=== PATIENT | male | born 1960 | race Caucasian/White ===

== ENCOUNTER 2022-08-19 08:19 | Emergency (ER) | payer MEDICARE, SELFPAY ==
[2022-08-19] VITALS (12 sets, daily range): BP systolic 117–165; BP diastolic 57–95; PULSE 57–93; RESP 16–28; TEMP 36.4; O2SAT 98–100
[2022-08-19] MEDS: KETOROLAC 30 MG/ML VIAL (*BKC) IV PUSH (09:08)
[2022-08-19 09:10] LABS: Basophils Percent Auto 0.1 % (0.2-1.2); Eosinophils Percent Auto 0.2 % (0-4.4); Hematocrit 40.6 % (42.0-52.0); Hemoglobin 13.7 g/dL (14.0-18.0); Immature Granulocyte Absolute 0.08 K/mm3 (0.00-0.031); Immature Granulocyte Percent A 0.6 % (0-0.5); Lymphocytes Percent Auto 12.7 % (18.3-44.2); Mean Corpuscular HGB Conc 33.7 g/dl (32-36); Mean Platelet Volume 9.2 fl (7.4-10.4); Monocytes Absolute Auto 1.1 K/mm3 (0.1-0.6); Monocytes Percent Auto 8.3 % (2.6-8.5); Neutrophils Absolute Auto 10.5 K/mm3 (1.3-6.7); Neutrophils Percent Auto 78.1 % (45.5-73.1); Platelet Count Result 278 k/mm3 (150-375); Red Blood Count 4.56 M/mm3 (4.6-6.20); Red Cell Distribution Width 12.9 % (11.5-14.5); White Blood Count 13.4 K/mm3 (4.5-10.0)
[2022-08-19 09:24] LABS: Lactic Acid Reflex 2.7 mmol/L (0.7-2.0)
[2022-08-19 09:25] LABS: Alanine Aminotransferase 29 U/L (6-50); Albumin Level 4.3 g/dL (3.5-5.1); Alkaline Phosphatase 95 U/L (38-126); Anion Gap 12 mmol/L (8-16); Aspartate Amino Transferase 22 U/L (17-59); Bilirubin,Total 0.3 mg/dL (0.2-1.3); Blood Urea Nitrogen 17 mg/dL (9-20); Carbon Dioxide 23 mmol/L (22-30); Chloride 104 mmol/L (98-107); Estimated CRCL calculation 80 ml/min; Estimated Glomerular Filt Rate > 60; Glucose 129 mg/dL (65-110); Potassium 3.6 mmol/L (3.4-5.0); Sodium 139 mmol/L (137-145)
--- NOTE | 2022-08-19 09:25 | ED.GENADULT ---
HPI - General Adult General Chief complaint: Unspecified Stated complaint: Body Aches Time Seen by Provider: 08/19/22 08:49 History of Present Illness HPI narrative: 61-year-old man history of chronic pain to his right hip and lower back presents to the emergency room for evaluation of generalized body aches for 1 day. Patient states approximately a week ago he was experiencing multiple episodes of nausea, vomiting, diarrhea, and sinus congestion. States that the symptoms lasted for 2 or 3 days. States yesterday began experiencing generalized body aches from the mid thorax down into his feet. Patient states that his skin is very sensitive to touch. Has been intermittently taking Tylenol and ibuprofen with no symptom resolution. Currently denies fever, URI symptoms, or abdominal pain Related Data Allergies Allergy/AdvReac Type Severity Reaction Status Date / Time No Known Allergies Allergy Verified 08/19/22 08:56 NONE KNOWN Allergy Mild Unknown Uncoded 08/19/22 08:56 Review of Systems Review of Systems: CONSTITUTIONAL: Denies fever, chills, or sweats. EYES: Denies visual changes, redness, or discharge. ENT: Denies rhinorrhea, congestion, sore throat, or otalgia. CARDIOVASCULAR: Denies chest pain, palpitations, or edema. RESPIRATORY: Denies cough or dyspnea. GASTROINTESTINAL: Denies abdominal pain, nausea, vomiting, or diarrhea. GENITOURINARY: Denies dysuria or hematuria. SKIN: Denies rash or itching. MUSCULOSKELETAL: Reports body aches NEUROLOGIC: Denies headache, numbness, dizziness, or weakness. PSYCHIATRIC: Denies anxiety or depression. [facility] Family History Family History Grandparent Hypertension Family history of elevated blood lipids Family history of coronary artery disease Diabetes mellitus Social History Social History Second hand tobacco smoke exposure: Yes Alcohol intake: current Substance use type: marijuana Exam Narrative: GENERAL: Well-appearing, well-nourished, no physical limitations, and in no acute distress. HEAD: Normocephalic, atraumatic. EYES: Conjunctivae normal, PERRLA and EOMI. ENT: External nose normal, Nares clear, no rhinorrhea or epistaxis. Mucous membranes moist. Oropharynx without tonsillar hypertrophy exudate or other lesions. External ears normal, bilateral TMs normal bilaterally CHEST: Clear to auscultation. No respiratory distress. No wheezes rales or rhonchi. No tenderness. HEART: Regular rate and rhythm. No murmur heard. Normal peripheral pulses. ABDOMEN: Soft, nontender, nondistended, normal active bowel sounds. EXTREMITIES: Normal range of motion. No edema. No clubbing or cyanosis SKIN: Warm, dry, no rash. No noted wounds. Hyperalgesia noted to torso, back, abdomen, lower extremities NEURO: No focal deficits. Alert and oriented x3. MAEW. CN's II-XI intact bilaterally, normal gait PSYCH: Cooperative. Normal mood and affect. Course Vital Signs Vital signs: Vital Signs Pulse Rate 70 08/19/22 08:36 Respiratory Rate 28 H 08/19/22 08:36 Blood Pressure 137/82 08/19/22 08:36 Pulse Oximetry 99 08/19/22 08:36 Temperature 36.4 C 08/19/22 08:52 Pulse Rate 62 08/19/22 12:17 Respiratory Rate 20 08/19/22 12:17 Blood Pressure 138/95 H 08/19/22 12:17 Pulse Oximetry 100 08/19/22 12:17 Oxygen Delivery Room Air 08/19/22 08:52 Medical Decision Making Vital Signs Vital Signs: Vital Signs Pulse Rate 70 08/19/22 08:36 Respiratory Rate 28 H 08/19/22 08:36 Blood Pressure 137/82 08/19/22 08:36 Pulse Oximetry 99 08/19/22 08:36 Temperature 36.4 C 08/19/22 08:52 Pulse Rate 62 08/19/22 12:17 Respiratory Rate 20 08/19/22 12:17 Blood Pressure 138/95 H 08/19/22 12:17 Pulse Oximetry 100 08/19/22 12:17 Oxygen Delivery Room Air 08/19/22 08:52 Lab Data Result diagrams: 08/19/22 09:04
[2022-08-19 09:47] LABS: Influenza A QL RT-PCR Negative (Negative); Influenza B QL RT-PCR Negative (Negative); SARS-CoV-2 RNA PCR Positive
[2022-08-19] MEDS: SODIUM CHLORIDE 0.9% IV 1,000 ML 999 ML IV CONT ×2 (10:42→10:43)
[2022-08-19 12:07] LABS: Reflex Lactic Acid Yes or No Add Lactic
[2022-08-19 12:49] LABS: Appearance Urine Clear (Clear); Bilirubin Urine Negative (Negative); Blood Urine Negative (Negative); Color Urine Yellow (Yellow); Glucose Urine UA Negative (Negative); Ketones Urine 1+ mg/dL (Negative); Leukocyte Esterase Ur Negative LEU/UL (Negative); Nitrate Urine Negative (Negative); Protein Urine Trace mg/dL (Negative); Specific Grav Ur 1.025 (1.001-1.035); Urobilinogen Urine 0.2 mg/dL (<2.0); pH Urine 5.5 (5.0-9.0)
[2022-08-19 12:52] LABS: Mucus Urine Rare /lpf; RBC Urine 0-2 /hpf (0-2); WBC Urine 0-3 /hpf
[2022-08-19 12:53] LABS: Lactic Acid 0.9 mmol/L (0.7-2.0)
[2022-08-19 12:54] LABS: Lactic Acid Reflex 0.9 mmol/L (0.7-2.0)
[2022-08-19 13:10] LABS: Add Urine Microscopic? YES
== END 2022-08-19 13:29 | disposition home or self-care (01) ==
PROVIDERS: Emergency Provider Nurse Practitioner Family
DX: U07.1 COVID-19 (principal); Z77.22 Contact with and (suspected) exposure to environmental tobacco smoke (acute) (chronic)
CPT/HCPCS: 36415; 80053; 81001; 83605; 85025; 87502; 92960; 96374; 99284; C9803; J1885; J7030; U0003; U0005

== ENCOUNTER 2022-08-21 13:35 | Inpatient (IN) | payer MEDICARE, SELFPAY ==
[2022-08-21] VITALS (9 sets, daily range): BP systolic 120–157; BP diastolic 81–97; PULSE 56–86; RESP 12–17; TEMP 36.3–36.7; O2SAT 96–100; BMI 24.2
--- NOTE | ~2022-08-21 | MR_ITS ---
EXAMINATION: MR thoracic spine wo/w con DATE: 08/22/2022 11:36 INDICATION: Lower extremity weakness. Demyelinating disease. TECHNIQUE: Magnetic resonance imaging (MRI) of the thoracic spine was performed without and with 15 m L MultiHance intravenous contrast. COMPARISON: Thoracic spine CT 08/21/2022 FINDINGS: There is 5 degrees levocurvature of thoracic spine. Vertebral body heights are normal. Ther e is mildly decreased disc height at T6-T7 and T7-T8. At T3-T4, there is a right central protrusion w ith mild central canal stenosis. At T6-T7, there is a left central protrusion with mild central canal stenosis. The facet joints are unremarkable. On the right, there is mild neural foraminal stenosis a t T3-T4. There is patchy increased T2-weighted signal intensity in the spinal cord from T1 to T9. No contrast enhancement, but sensitivity for enhancement is decreased by motion artifact. IMPRESSION: 1. Patchy increased T2-weighted signal intensity in the spinal cord from T1 to T9. The differential d iagnosis includes viral myelitis, transverse myelitis, multiple sclerosis, acute disseminated encepha lomyelitis, and neuromyelitis optica. 2. Mild thoracic spondylosis. Reviewed, dictated and finalized at location A. IMPRESSION: 1. Patchy increased T2-weighted signal intensity in the spinal cord from T1 to T9. The differential diagnosis includes viral myelitis, transverse myelitis, mu ltiple sclerosis, acute disseminated encephalomyelitis, and neuromyelitis optic a. 2. Mild thoracic spondylosis.
--- NOTE | ~2022-08-21 | MR_ITS ---
EXAMINATION: MR lumbar spine wo/w con DATE: 08/22/2022 11:37 INDICATION: Lower extremity weakness. Guillain [place] syndrome. TECHNIQUE: Magnetic resonance imaging (MRI) of the lumbar spine was performed without and with 15 mL MultiHance intravenous contrast. COMPARISON: CT 08/21/2022 FINDINGS: Bone alignment is normal. Vertebral body heights are normal. There is moderately decreased disc height at L2-L3, severely decreased disc height at L3-L4 and L4-L5, and mildly decreased disc he ight at L5-S1. The distal spinal cord signal intensity is normal. The conus medullaris is at L1. The following disc levels are specifically discussed: L1-L2: The disc does not extend beyond the endplate margin. There is no facet joint osteoarthritis. T here is no neural foraminal stenosis. There is no central canal stenosis. L2-L3: The disc is bulging. There is mild bilateral facet joint osteoarthritis. There is mild bilater al neural foraminal stenosis. There is no central canal stenosis. L3-L4: The disc is bulging and has an annular fissure. There is mild lateral facet joint osteoarthrit is. There is mild bilateral neural foraminal stenosis. There is mild central canal stenosis. L4-L5: The disc is bulging and has an annular fissure. There is moderate right and mild left facet valentino int osteoarthritis. There is moderate right and mild left neural foraminal stenosis. There is no cent ral canal stenosis. L5-S1: The disc is bulging and has an annular fissure. There is moderate bilateral facet joint osteoa rthritis. There is mild bilateral neural foraminal stenosis. There is mild central canal stenosis. IMPRESSION: 1. Severe lumbar spondylosis. Reviewed, dictated and finalized at location A.
--- NOTE | ~2022-08-21 | XR_ITS ---
EXAMINATION: XR lumbar puncture diagnostic DATE: 08/21/2022 19:09 INDICATION: Guillan Henderson TECHNIQUE: The procedure including the risks and benefits was discussed with the patient. Risks discu ssed included spinal headache, cerebrospinal fluid leak, bleeding, and infection. The patient underst ood the risks and agreed to proceed. A timeout was performed to verify the patient's name, date of , and procedure to be performed. The skin overlying the L4-L5 level was prepped and draped in usual sterile fashion. Subcutaneous 1% lidocaine was used for local anesthesia. A 22 gauge spinal n eedle was advanced under fluoroscopic guidance. The needle was removed and the entry site was cleaned and dressed. There were no immediate complications. A total of 1 fluoroscopic image(s) were obtaine d. The amount of fluoroscopy time used during this procedure was 0.2 minutes. The patient was taken t o the nursing area for observation. FINDINGS: Real-time fluoroscopy demonstrates the needle at the L4-L5 level. Opening pressure was 13 c m water. (Normal range is variably defined as 6-20 cm water and up to 25 cm water in obese patients. Pressure >25 cm water is one of the modified Dandy criteria for idiopathic intracranial hypertension) . 13 mL of clear, colorless fluid was collected in 4 tubes. IMPRESSION: 1. Successful fluoro-guided lumbar puncture. Reviewed, dictated and finalized at location A.
--- NOTE | ~2022-08-21 | CT_ITS ---
EXAMINATION: CT thoracic lumbar wo con DATE: 08/21/2022 14:57 INDICATION: Lower extremity weakness and paresthesias TECHNIQUE: Computed tomography (CT) of the was performed without intravenous contrast. The dose-lengt h product was 1696.16 mGy-cm. Automated exposure control and iterative reconstruction technique were employed. COMPARISON: None FINDINGS: Thoracic spine: Normal thoracic alignment. Mild degenerative disc disease at C6-7 and C7-T1. There is dependent atelectasis in the lower lungs. No acute fracture or traumatic malalignment. Lumbar spine: There is moderate-severe degenerative disc disease at L2-3 through L5-S1. No acute frac ture or traumatic malalignment. No evidence for spondylolisthesis. IMPRESSION: 1. No acute fracture. Reviewed, dictated and finalized at location B. IMPRESSION: 1. No acute fracture.
--- NOTE | ~2022-08-21 | CT_ITS ---
EXAMINATION: CT cervical spine wo con DATE: 08/21/2022 14:56 INDICATION: Lower extremity weakness and paresthesias. Neck pain. TECHNIQUE: Computed tomography (CT) of the cervical spine was performed without intravenous contrast. Automated exposure control and iterative reconstruction technique were employed. The dose-length pro duct was 489.23 mGy-cm. COMPARISON: None FINDINGS: Straightening of the normal cervical lordosis. No spondylolisthesis or facet subluxation. Vertebral b shyam heights are normal. No fractures. Mild disc height loss at C4-C5, moderate disc height loss at C6 -C7 and moderate to severe disc height loss at C5-C6. Small amount of atherosclerotic calcification a t the right carotid bifurcation. Cervical soft tissues are otherwise unremarkable. Mild emphysema the apices of the lungs. And mastoid air cells, middle ear cavities and visualized portions of the sphen oid sinus and airway are clear. The following disc levels are specifically discussed: C2-C3: Disc is bulging. There is mild bilateral uncovertebral joint osteoarthritis. There is moderate right and mild to moderate left facet joint osteoarthritis. There is no neural foraminal stenosis. T here is mild central canal stenosis. C3-C4: Disc is bulging. There is mild to moderate bilateral uncovertebral joint osteoarthritis. There is mild right and moderate left facet joint osteoarthritis. There is mild bilateral neural foraminal stenosis. There is mild central canal stenosis. C4-C5: Disc is bulging. There is mild to moderate bilateral uncovertebral joint osteoarthritis. There is mild bilateral facet joint osteoarthritis. There is mild right neural foraminal stenosis. There i s mild central canal stenosis. C5-C6: Posterior disc osteophyte complex. There is severe bilateral uncovertebral joint osteoarthriti s. There is mild bilateral facet joint osteoarthritis. There is moderate bilateral neural foraminal s tenosis. There is mild to moderate central canal stenosis. C6-C7: Posterior disc osteophyte complex. There is severe bilateral uncovertebral joint osteoarthriti s. There is mild left and moderate right facet joint osteoarthritis. There is moderate bilateral neur al foraminal stenosis. There is mild central canal stenosis. C7-T1: The disc does not extend beyond the endplate margin. There is no uncovertebral joint osteoarth ritis. There is moderate to severe bilateral facet joint osteoarthritis. There is no neural foraminal stenosis. There is no central canal stenosis. IMPRESSION: 1. Moderate to severe cervical spondylosis. No acute osseous abnormality. 2. Mild emphysema. Reviewed, dictated and finalized at location A.
--- NOTE | ~2022-08-21 | MR_ITS ---
EXAMINATION: MR cervical spine wo/w con DATE: 08/22/2022 11:36 INDICATION: Lower extremity weakness. Demyelinating disease. TECHNIQUE: Magnetic resonance imaging (MRI) of the cervical spine was performed without and with 15 m L MultiHance intravenous contrast. COMPARISON: None FINDINGS: There is hypolordosis of cervical spine. There is 2 mm retrolisthesis of C5 on C6. Vertebra l body heights are normal. There is mildly decreased disc height at C4-C5 and severely decreased disc height at C5-C6 and C6-C7. The spinal cord signal intensity is normal. The following disc levels are specifically discussed: C2-C3: The disc does not extend beyond the endplate margin. There is no uncovertebral joint osteoarth ritis. There is mild right and moderate left facet joint osteoarthritis. There is no neural foraminal stenosis. There is no central canal stenosis. C3-C4: There is a central extrusion. There is mild bilateral uncovertebral joint osteoarthritis. Ther e is moderate bilateral facet joint osteoarthritis. There is mild bilateral neural foraminal stenosis . There is mild central canal stenosis. C4-C5: The disc is bulging. There is moderate bilateral uncovertebral joint osteoarthritis. There is no facet joint osteoarthritis. There is mild bilateral neural foraminal stenosis. There is mild centr al canal stenosis with ventral indentation of the spinal cord. C5-C6: The disc is bulging. There is severe bilateral uncovertebral joint osteoarthritis. There is no facet joint osteoarthritis. There is moderate bilateral neural foraminal stenosis. There is mild karen tral canal stenosis with ventral indentation of the spinal cord. C6-C7: The disc is bulging. There is severe bilateral uncovertebral joint osteoarthritis. There is se marco bilateral facet joint osteoarthritis. There is moderate bilateral neural foraminal stenosis. The re is mild central canal stenosis. C7-T1: The disc does not extend beyond the endplate margin. There is no uncovertebral joint osteoarth ritis. There is severe bilateral facet joint osteoarthritis. There is mild bilateral neural foraminal stenosis. There is no central canal stenosis. IMPRESSION: 1. Severe cervical spondylosis. Reviewed, dictated and finalized at location A.
--- NOTE | ~2022-08-21 | XR_ITS ---
EXAMINATION: XR abdomen obstructive series DATE: 08/23/2022 09:46 INDICATION: Abdominal distention TECHNIQUE: Upright and supine views of the abdomen were obtained. COMPARISON: None. FINDINGS: There is no free intraperitoneal gas. There is moderate gaseous distention of the colon. Th e visualized lung bases are clear. IMPRESSION: 1. Moderate gaseous distention of the colon which may reflect ileus. Reviewed, dictated and finalized at location A.
--- NOTE | ~2022-08-21 | MR_ITS ---
EXAMINATION: MR brain/brain stem wo/w con DATE: 08/22/2022 11:36 INDICATION: Lower extremity weakness. Demyelinating disease. TECHNIQUE: Magnetic resonance imaging (MRI) of the brain and brainstem was performed without and with 15 mL MultiHance intravenous contrast. COMPARISON: None. FINDINGS: There is no intracranial hemorrhage, acute infarction, or abnormal intracranial mass lesion . The ventricles are normal in size. There is mucosal thickening in the paranasal sinuses. The orbits are normal. There are small bilateral mastoid effusions. IMPRESSION: 1. Normal brain. Reviewed, dictated and finalized at location A. IMPRESSION: 1. Normal brain.
--- NOTE | ~2022-08-21 | XR_ITS ---
EXAMINATION: XR abdomen obstructive series DATE: 08/24/2022 07:41 INDICATION: Adynamic ileus. TECHNIQUE: Upright and supine views of the abdomen were obtained. COMPARISON: Abdomen radiographs 08/23/2022 FINDINGS: There are no dilated loops of bowel. There is a small volume of stool in the colon. No free intraperitoneal gas. A catheter overlies the bladder. IMPRESSION: 1. Normal bowel gas pattern. Reviewed, dictated and finalized at location A.
--- NOTE | 2022-08-21 13:49 | ED.WEAKNESS ---
HPI - Weakness General Chief complaint: Weakness Stated complaint: Weakness, COVID + Time Seen by Provider: 08/21/22 13:37 History of Present Illness HPI Narrative: 61-year-old male presents to the emergency room for worsening lower extremity weakness and altered sensation to his legs and abdomen. Patient was seen here on Friday for generalized weakness and was diagnosed with COVID at that time. Patient was complaining of right hip and lower back pain with lower extremity weakness. Patient states he was able to ambulate at that time was sent home with Celebrex and stated he began to feel better while at the same time began to experience more weakness and altered skin sensation from his mid torso into his feet. Patient states he is having difficulty ambulating because his legs are so weak. Patient is able to distinguish between hot and cold, and sharp and blunt sensations. Patient denies any recent injury or trauma. Patient denies any saddle anesthesia. Denies any loss of bowel or bladder habits. Related Data Allergies Allergy/AdvReac Type Severity Reaction Status Date / Time No Known Allergies Allergy Verified 08/21/22 13:47 Review of Systems Review of Systems: CONSTITUTIONAL: Denies fever, chills, or sweats. EYES: Denies visual changes, redness, or discharge. ENT: Denies rhinorrhea, congestion, sore throat, or otalgia. CARDIOVASCULAR: Denies chest pain, palpitations, or edema. RESPIRATORY: Denies cough or dyspnea. GASTROINTESTINAL: Denies abdominal pain, nausea, vomiting, or diarrhea. GENITOURINARY: Denies dysuria or hematuria. SKIN: Denies rash or itching. MUSCULOSKELETAL: Denies back pain, joint pain, or myalgia. NEUROLOGIC: Reports lower extremity weakness, hypersensitivity to touch, and lower back and lower extremity pain PSYCHIATRIC: Denies anxiety or depression. [facility] Family History Family History Grandparent Hypertension Family history of elevated blood lipids Family history of coronary artery disease Diabetes mellitus Social History Social History Second hand tobacco smoke exposure: Yes Alcohol intake: current Substance use type: marijuana Exam Narrative: GENERAL: ill-appearing, and in no acute distress. HEAD: Normocephalic, atraumatic. EYES: Conjunctivae normal, PERRLA and EOMI. NECK: Supple. No meningeal signs. No adenopathy or masses. CHEST: Clear to auscultation. No respiratory distress. No wheezes rales or rhonchi. No tenderness. HEART: Regular rate and rhythm. No murmur heard. Normal peripheral pulses. ABDOMEN: Soft, nontender, nondistended, normal active bowel sounds. BACK: No CVA tenderness; lumbar tenderness, with no step-offs, or bony abnormality; LROM d/t pain EXTREMITIES: weakness of proximal and distal legs bilaterally. Bilateral leg extension strength 1/5. Bilateral knee flexion strength 2+/5, bilateral ankle plantarflexion/dorsiflexion strength 2+/5 SKIN: Warm, dry, no rash. No noted wounds NEURO: Alert and oriented x3. CN's II-XI intact bilaterally. diminished patellar reflexes bilaterally, bilateral babinski reflexes present. able to differentiate between sharp and dull in all 4 extremities and his torso. Hypersensitivity to touch noted in lower extremities, hands and abdomen PSYCH: Cooperative. Normal mood and affect. Course Course Emergency Course: 1610: Consulted Dr. Delgado. She is willing to consults with the patient when he is admitted. Recommends MRI of the spine with and without contrast and ICU admission. 1625: Consulted with Dr. Reddy. He is willing to accept the patient to the ICU. Vital Signs Vital signs: Vital Signs Temperature 36.7 C 08/21/22 13:41 Pulse Rate 86 08/21/22 13:41 Respiratory Rate 16 08/21/22 13:41 Blood Pressure 139/89 08/21/22 13:41 Pulse Oximetry 98 08/21/22 13:41 Oxygen Delivery Room Air 08/21/22 13:41 Tem
[2022-08-21 14:02] LABS: Basophils Percent Auto 0.1 % (0.2-1.2); Eosinophils Absolute Auto 0.1 K/mm3 (0-0.3); Eosinophils Percent Auto 0.4 % (0-4.4); Hematocrit 41.1 % (42.0-52.0); Hemoglobin 14.4 g/dL (14.0-18.0); Immature Granulocyte Absolute 0.04 K/mm3 (0.00-0.031); Immature Granulocyte Percent A 0.4 % (0-0.5); Lymphocytes Percent Auto 13.2 % (18.3-44.2); Mean Corpuscular Hemoglobin 30.8 pg (26-34); Mean Corpuscular Volume 87.8 fl (80-100); Mean Platelet Volume 9.2 fl (7.4-10.4); Monocytes Percent Auto 8.8 % (2.6-8.5); Neutrophils Absolute Auto 8.8 K/mm3 (1.3-6.7); Neutrophils Percent Auto 77.1 % (45.5-73.1); Platelet Count Result 325 k/mm3 (150-375); Red Blood Count 4.68 M/mm3 (4.6-6.20); Red Cell Distribution Width 13.1 % (11.5-14.5); White Blood Count 11.4 K/mm3 (4.5-10.0)
[2022-08-21 14:10] LABS: Alanine Aminotransferase 22 U/L (6-50); Albumin Level 4.3 g/dL (3.5-5.1); Alkaline Phosphatase 88 U/L (38-126); Anion Gap 11 mmol/L (8-16); Aspartate Amino Transferase 21 U/L (17-59); Bilirubin,Total 0.4 mg/dL (0.2-1.3); Blood Urea Nitrogen 9 mg/dL (9-20); Calcium 9.4 mg/dL (8.4-10.2); Carbon Dioxide 25 mmol/L (22-30); Chloride 101 mmol/L (98-107); Creatine Kinase 112 U/L (55-170); Estimated CRCL calculation 111 ml/min; Estimated Glomerular Filt Rate > 60; Glucose 140 mg/dL (65-110); Potassium 3.3 mmol/L (3.4-5.0); Sodium 137 mmol/L (137-145)
[2022-08-21] MEDS: HYDROmorphone HCL INJ (*CRX) 1 MG/ML SYR IV PUSH (14:30)
--- NOTE | 2022-08-21 14:40 | PC.NURSE ---
Pt continues to decline LP procedure, states needs more time to decide. EDP made aware.
[2022-08-21 15:20] LABS: Erythrocyte Sedimentation Rate 14 mm/hr (0-20)
--- NOTE | 2022-08-21 16:25 | PC.NURSE ---
Pt Sharri called and requested update on pt, Binu gave this RN verbal permission given to discuss all care/results/status/plan w/ spouse. Please call w/ any updates: CELL [phone]
[2022-08-21 17:22] LABS: INR 1.1; Prothrombin Time 13.9 Seconds (11.1-14.7)
[2022-08-21 17:23] LABS: Partial Thromboplastin Time 29.7 SECONDS (22.3-36.8)
--- NOTE | 2022-08-21 18:55 | ADMGEN ---
This patient, Binu Jutsin, was admitted to Intensive Care Unit-10 at 1849 on 08/21/2022. Report received from Venecia TOMAS. Patient/family oriented to hospital policies and general routines including ID bracelet, bed and alarms, visiting hours, pain management, procedures, bathroom and other care routines, personal items, smoking policy, room service/diet, and visiting hours. Information on how to activate the Rapid Response Team has been discussed. Patient/Family are encouraged to report perceived risks to care and to ask questions if they do not understand what they are told or what they should do.
[2022-08-21 19:21] LABS: Glucose CSF 59 mg/dL (40-70); Total Protein CSF 216 mg/dL (12-60)
[2022-08-21 19:33] LABS: Immunoglobulin A 193 mg/dL (70-400); Immunoglobulin G 1230 mg/dL (700-1600); Immunoglobulin M 123 mg/dL (40-230)
[2022-08-21 19:39] LABS: Appearance CSF Clear (Clear); CSF source CSF; Color CSF Colorless (Colorless); Nucleated Cell CSF 138 /uL (0-5); Red Blood Cell CSF 0 (0-2)
[2022-08-21 19:41] LABS: Lymphocytes CSF 85 % (40-80); Monocytes CSF 12 % (15-45); Neutrophils CSF 3 % (0-6)
[2022-08-21] MEDS: SODIUM CHLORIDE 0.9% IV 1,000 ML 125 ML IV CONT (19:59)
--- NOTE | 2022-08-21 21:08 | PM.IMHP ---
H&P: HPI History of Present Illness Date/Time: 08/21/22 21:08 Chief Complaint: Weakness Narrative: This is a 61-year-old male patient who typically takes no medication. The patient came to the emergency room on the 08/19/22 with body aches and lower back pain and 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 The patient was positive for COVID. The patient was sent home for conservative measures. The patient came back to the emergency room today with worsening lower extremity weakness. He also had altered sensation to his legs and abdomen. The patient is able to move his legs but not move them up off the bed. Patient was complaining of right hip pain which is chronic and lower back pain which is worse today than normal. The patient was able to ambulate at the time he was sent home with Celebrex and stated he began to feel better well at the same time he is getting more fatigued and weak. Patient started out with a cane and then pushing a walker and now he is in a wheelchair and states that he cannot get out. He has not had any injury or trauma. He is not able to distinguish between hot and cold are sharp and blunt sensation on his lower extremities. The patient had a spinal tap today to rule out possibility of Guillain-[place] syndrome. The neurologist and painter drum have been consulted and agree to admission to the ICU. Thoracic lumbar spine was read as no acute fractures. Cervical spine was read as moderate to severe cervical spondylosis. No acute osseous abnormality. Mild emphysema. The patient did have a lumbar puncture performed. His white count was noted to be 11.4. His potassium was low at 3.3. Blood glucose is 140. Cerebral spinal fluid total nucleated cells is 138 which is elevated, CSF lymphocytes 85 which is slightly high. Monocytes are low at 12. Glucose is normal. CSF total protein 216. IgG is normal and IgA is normal IgM is normal. The patient was given IV fluids, Zofran, Toradol, and and Dilaudid in the emergency room. Patient is being admitted to inpatient services on the date of service of 08/21/2022. Review of Systems Review of Systems: See HPI All systems reviewed & are unremarkable except as noted in HPI and below Constitutional: Constitutional: Reports as per HPI and Reports no additional constitutional complaints Eyes: Eyes: Reports as per HPI and Reports no additional eye complaints ENT: Reports system reviewed and no additional complaints, except as documented and Reports Normal hearing present Cardiovascular: Cardiovascular: Reports no additional cardiovascular complaints Respiratory: Respiratory: Reports no additional respiratory complaints and Reports no additional respiratory complaints Gastrointestinal: Gastrointestinal: Reports as per HPI and Reports no additional gastrointestinal complaints Musculoskeletal: Musculoskeletal: Reports no additional musculoskeletal complaints Integumentary/Breasts: Skin/Breast: Reports system reviewed and no additional complaints, except as docu and Reports as per HPI Neurologic: Reports system reviewed and no additional complaints, except as documented, Reports as per HPI and Reports Normal hearing present Psychiatric: Psychiatric: Reports no additional psychiatric complaints and Reports as per HPI Endocrine: Endocrine: Reports no additional endocrine complaints Hematologic/Lymphatic: Hematologic/Lymphatic: Reports no additional hematologic/lymphatic complaints Allergic/Immunologic: Allergic/Immunologic: Reports no additional allergic/immunologic complaints [facility] Past Medical History Medical History (Updated 08/21/22 @ 21:21 by Cassie Barker NP) Chronic back pain Chronic hip pain Tobacco abuse Surgical History Surgical History (Updated 08/21/22 @ 21:21 by Cassie Barker NP) H/O hand surgery Left pointer finger History of appendectomy Family History Family History (Updated 08/21/22 @ 21:23 by Cassie Barker NP) Grandparent Hypertension Family history of kodi
[2022-08-21] MEDS: KETOROLAC 15 MG/ML VIAL (*BKC) IV PUSH (23:13)
[2022-08-22] VITALS (18 sets, daily range): BP systolic 122–174; BP diastolic 80–100; PULSE 57–88; RESP 13–26; TEMP 36.1–37.2; O2SAT 96–100; BMI 10.0
[2022-08-22] MEDS: HYDROmorphone HCL INJ (*CRX) 1 MG/ML SYR IV PUSH ×3 (00:42→21:01)
[2022-08-22] MEDS: SODIUM CHLORIDE 0.9% IV 1,000 ML 125 ML IV CONT ×3 (03:27→22:21)
[2022-08-22 04:28] LABS: Basophils Percent Auto 0.1 % (0.2-1.2); Eosinophils Absolute Auto 0.1 K/mm3 (0-0.3); Eosinophils Percent Auto 1.5 % (0-4.4); Hemoglobin 13.8 g/dL (14.0-18.0); Immature Granulocyte Absolute 0.03 K/mm3 (0.00-0.031); Immature Granulocyte Percent A 0.3 % (0-0.5); Lymphocytes Absolute Auto 1.64 K/mm3 (0.9-3.2); Lymphocytes Percent Auto 18.9 % (18.3-44.2); Mean Corpuscular HGB Conc 34.5 g/dl (32-36); Mean Corpuscular Hemoglobin 30.8 pg (26-34); Mean Corpuscular Volume 89.3 fl (80-100); Monocytes Absolute Auto 0.8 K/mm3 (0.1-0.6); Neutrophils Absolute Auto 6.1 K/mm3 (1.3-6.7); Neutrophils Percent Auto 70.2 % (45.5-73.1); Platelet Count Result 294 k/mm3 (150-375); Red Blood Count 4.48 M/mm3 (4.6-6.20); Red Cell Distribution Width 13.3 % (11.5-14.5); White Blood Count 8.7 K/mm3 (4.5-10.0)
[2022-08-22 04:37] LABS: Lactic Acid Reflex 0.7 mmol/L (0.7-2.0)
[2022-08-22 04:43] LABS: Alanine Aminotransferase 19 U/L (6-50); Albumin Level 3.7 g/dL (3.5-5.1); Alkaline Phosphatase 87 U/L (38-126); Anion Gap 6 mmol/L (8-16); Aspartate Amino Transferase 21 U/L (17-59); Bilirubin,Total 0.4 mg/dL (0.2-1.3); Blood Urea Nitrogen 8 mg/dL (9-20); CRP 1.2 mg/dL (<1.0); Calcium 8.5 mg/dL (8.4-10.2); Carbon Dioxide 29 mmol/L (22-30); Chloride 104 mmol/L (98-107); Estimated CRCL calculation 98 ml/min; Estimated Glomerular Filt Rate > 60; Glucose 109 mg/dL (65-110); Magnesium 2.1 mg/dL (1.6-2.3); Potassium 3.8 mmol/L (3.4-5.0); Sodium 139 mmol/L (137-145)
--- NOTE | 2022-08-22 08:55 | WPDNEURCNPN ---
Assessment and Plan Assessment and plan (1) Leg weakness, bilateral: Code(s): R29.898 - Other symptoms and signs involving the musculoskeletal system Status: Acute Assessment and Plan: Binu Justin is a 61 year old male with chronic lower back pain presenting for subacute, progressive weakness in bilateral lower extremites, as well as sensory changes and urinary/stool retension. Concern for Guillan [place] syndrome given ascending weakness/sensory changes, now with some involvement of the hands. CSF showed elevated cell count and protein. Will need to obtain MRI of spine to rule out central lesion (transverse myelitis). Plan - Recommend MRI complete spine w/wo contrast - If imaging does not show any signal change within the spinal cord, will move forward with IVIG 0.4g/kg/day x 5 days - If imaging is concerning for transverse myelitis, would treat with IV solumedrol (1g/day divided BID x 5 days) - Continue NIFs q4hrs along with neuro checks and cardiorespiratory monitoring Consult date: 08/22/22 Time Seen: 08:55 Reason for consult: Lower extremity weakness/numbness HPI: Binu Justin is a 61 year old male with a history of chronic lower back pain who presented initially on 08/18 due to 1 day history of allodynia from the mid thorax down to his feet. He was also have other signs of illness including nausea, vomiting, diarrhea, sinus congestion. At that time he was positive for COVID. He presented to the ED again yesterday due to weakness in his lower extremities that has gradually gotten worse over the past few days. He walks normally at baseline, but became weak to the point that has needed to use a wheelchair. He reports numbness in his chest, thorax, lower extremities, and now somewhat in his hands as well as hyperasthesia with touch especially to the trunk. Reflexes in the lower extremity were also noted to be diminished. Patient also reports difficulty with initiating urination and bowel movements. Lumbar puncture was done which showed cell count of 138, protein 216 and normal CSF glucose. Cervical and lumbar CT showed moderate to severe spondylosis but no evidence of acute injury. MRI of the spine is pending. He denies any changes in his vision, dysphagia/dysarthria, shortness of breath. Review of Systems Constitutional: Constitutional: Reports body ache(s) and Reports weakness Eyes: Eyes: Reports no additional eye complaints ENT: Reports system reviewed and no additional complaints, except as documented Cardiovascular: Cardiovascular: Reports no additional cardiovascular complaints Respiratory: Respiratory: Reports cough and Denies dyspnea Gastrointestinal: Gastrointestinal: Reports as per HPI Genitourinary: Genitourinary: Reports as per HPI and Reports urinary hesitancy Musculoskeletal: Musculoskeletal: Reports back pain Integumentary/Breasts: Skin/Breast: Reports rash Neurologic: Reports as per HPI Psychiatric: Psychiatric: Reports no additional psychiatric complaints PMFSH Past Medical History Medical History Chronic back pain Chronic hip pain Tobacco abuse Surgical History Surgical History H/O hand surgery Left pointer finger History of appendectomy Family History Family History Grandparent Hypertension Family history of elevated blood lipids Family history of coronary artery disease Diabetes mellitus Sibling Cancer Sibling COPD (chronic obstructive pulmonary disease) Mother Sepsis Social History Social History Social History: 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 Patient continues to smoke at least a pack a cigarettes a day. He drinks of 5th of [place] Erazo a week. He does use mar
[2022-08-22] MEDS: ENOXAPARIN 40 MG/0.4 ML SYRINGE SUB-Q (09:12)
--- NOTE | 2022-08-22 09:15 | PM.IMPN ---
Progress Note: A&P Assessment and Plan (1) Leg weakness, bilateral: Code(s): R29.898 - Other symptoms and signs involving the musculoskeletal system Status: Acute Assessment and Plan: Etiology unclear but concerning for viral versus post viral syndrome such as Guillain-Benson or transverse myelitis. Lumbar puncture results noted with elevated white count, predominantly lymphocytes and elevated protein levels. Antiviral and antibiotics are held at this time. CSF culture pending. MRI of the brain and spine have been ordered are pending. Neurology has been consulted. Appreciate their input. Patient is also being followed by the senior commissary agent and appreciate their input. Monitor neurologic status and be watchful for diaphragmatic involvement. (2) COVID: Code(s): U07.1 - COVID-19 Status: Acute Assessment and Plan: Patient tested positive for COVID on 08/19/2022. Initially did not have an oxygen requirement but now is on 2 L. he has been started on baricitinib and dexamethasone. Continue COVID precautions. (3) Tobacco abuse: Code(s): Z72.0 - Tobacco use Status: Acute Assessment and Plan: Patient has been educated about the benefits of smoking cessation. Plan DVT prophylaxis: Lovenox Code status: Full Subjective Date/time seen: 08/22/22 09:15 Interval history: 61yo male with tobacco abuse here for LE weakness. Patient has not received any COVID vaccines. He has not received the influenza vaccine. About 10 days ago, he developed mild n/v, diarrhea with sinus congestion. Developed generalized body aches for 1 day and was seen in the ED on 08/19 and tested positive for COVID. He states the neurologic symptoms began with acute onset with numbness and burning from his mid chest down. He also was having weakness in his legs and now states that his hands having sensory symptoms which started about a day or so. His leg weakness has progressed to the point where he cannot walk. no other recent illnesses. He does not take medications. Exam Narrative: AF 97.7 155/100 67 26 99% ra Gen - NARD Chest -lungs are clear anteriorly in the flanks. CV - RRR S1/S2. Telemetry showing no significant dysrhythmias Abd -soft. Diffusely tender. Rebound pain. Positive bowel sounds. -Spann catheter secured draining clear yellow urine. Ext - No pedal edema Neuro - Alert and oriented. Left greater than right ankle clonus. Upgoing toes bilaterally. Hyper reflexia in the lower extremities. Hip flexors 2/5 strength bilaterally. Slip Injector And Applicator strength is normal. Proprioception in the lower extremities is poor. Psych -sad becomes tearful at times. Skin - Warm and dry Objective Data Vital Signs Vital Signs: Vital Signs - 24 hr 08/21/22 13:41 08/21/22 13:45 08/21/22 14:32 Temperature 98.0 F Pulse Rate 86 82 76 Respiratory Rate 16 16 Blood Pressure 139/89 136/83 Pulse Oximetry 98 99 Oxygen Delivery Room Air Oxygen Flow Rate 08/21/22 15:13 08/21/22 17:20 08/21/22 17:22 Temperature 97.9 F Pulse Rate 74 56 L Respiratory Rate 12 15 Blood Pressure 141/88 H 131/81 Pulse Oximetry 99 96 Oxygen Delivery Oxygen Flow Rate 08/21/22 17:58 08/21/22 20:00 08/21/22 20:00 Temperature 98.0 F Pulse Rate 58 L 72 58 L Respiratory Rate 15 15 Blood Pressure 120/88 Pulse Oximetry 99 99 Oxygen Delivery Room Air Oxygen Flow Rate 08/21/22 20:00 08/21/22 22:00 08/21/22 22:00 Temperature 97.6 F 97.4 F L Pulse Rate 72 58 L 58 L Respiratory Rate 17 17 Blood Pressure 142/97 H 157/88 H Pulse Oximetry 100 97 Oxygen Delivery Oxygen Flow Rate 08/22/22 00:00 08/22/22 00:00 08/22/22 00:00 Temperature 97.5 F L Pulse Rate 64 58 L 64 Respiratory Rate 17 19 Blood Pressure 147/95 H Pulse Oximetry 97 96 Oxygen Delivery Room Air Oxygen Flow Rate 08/22/22 01:01 08/22/22 02:00 08/22/22 02:01 Temperature 97.0 F L Pulse Rate
--- NOTE | 2022-08-22 09:30 | PCOTNOTE ---
Attempted OT evaluation, Patient going off the unit for additional testing, RN reports to attempt later this afternoon. Will follow.
--- NOTE | 2022-08-22 09:35 | WPDCNINT ---
Assessment and Plan Assessment and plan (1) Leg weakness, bilateral: Code(s): R29.898 - Other symptoms and signs involving the musculoskeletal system Status: Acute Assessment and Plan: Unclear etiology at this time, entertaining get Gates versus transverse myelitis -really appreciate Neurology input -CSF shows elevated WBC and protein normal glucose levels -CT scan of the spine shows spondylosis -MRI pending -treatment to be decided by Neurology once MRI is resulted (2) Tobacco abuse: Code(s): Z72.0 - Tobacco use Status: Acute Assessment and Plan: With counseled patient on cessation of smoking (3) COVID: Code(s): U07.1 - COVID-19 Status: Acute Assessment and Plan: Patient is COVID positive, has not received his COVID vaccine -started patient on dexamethasone and baricitinib Plan DVT prophylaxis: Lovenox Nutrition: Regular diet Code Status: Full code Critical Care Time Spent: 49 minutes Due to a high probability of clinically significant, life threatening deterioration, the patient required my highest level of preparedness to intervene emergently and I personally spent this critical care time directly and personally managing the patient. This critical care time included obtaining a history; examining the patient; pulse oximetry; ordering and review of studies; arranging urgent treatment with development of a management plan; evaluation of patient's response to treatment; frequent reassessment; and discussions with other providers. It was exclusive of separately billable procedures and treating other patients and teaching time. Please see Assessment and Plan section and the rest of the note for further information on patient assessment and treatment [facility] Consult Note Consult date: 08/22/22 Reason for consult: Weakness, numbness > in Lower extremities HPI: Binu Justin is a 61 year old male with significant past medical history of chronic back pain, chronic hip pain, tobacco use who initially presented to the ED on 08/19 with body aches and lower back pain along with right hip pain patient was tested positive for COVID along with complains of nausea, vomiting, diarrhea and sinus congestion at that time. He sent home for conservative measures. On 08/21/2022, patient returned to the ED due to increasing lower extremity weakness and numbness. He states that he was able to walk few days ago and that he was using a walker and a wheelchair and and really unable to move. He has reports numbness from lower extremities bilaterally to his chest around the nipple line. CT scan of the cervical and lumbar spine showed moderate to severe spondylosis, CSF showed total cell count of 130 and a protein of 216 and normal CSF glucose. He denied any changes in his vision, swallowing or breathing. Pt seen and examined the ICU, is awake, alert, oriented x3, denies any shortness of breath, chest pain, abdominal pain, nausea vomiting. States his weakness and numbness remains. Patient is on 2 L nasal cannula, hemodynamically stable, patient has a Spann with adequate urine output. 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
--- NOTE | 2022-08-22 10:19 | PCPTNOTE ---
Attempted PT evaluation, Patient going off the unit for additional testing, RN reports to attempt later this afternoon. Will follow.
[2022-08-22] MEDS: BENZONATATE 100 MG CAPSULE PO ×2 (11:53→16:02)
[2022-08-22] MEDS: BARICITINIB 2 MG TABLET 4 MG PO (11:53)
--- NOTE | 2022-08-22 14:16 | PCOTNOTE ---
Dr. Gordon is agreeable to completing OT evaluation and will have bedrest orders removed.
[2022-08-22] MEDS: methylPREDNISolone SOD SUCC 500 MG in DEXTROSE 5% 100 ML 200 MG IVPB (16:01)
[2022-08-22] MEDS: PANTOPRAZOLE SODIUM IV 40 MG VIAL IV PUSH (20:16)
[2022-08-22] MEDS: MELATONIN 5 MG TABLET PO (22:21)
[2022-08-23] VITALS (13 sets, daily range): BP systolic 104–171; BP diastolic 65–115; PULSE 64–102; RESP 12–24; TEMP 36.2–36.7; O2SAT 92–98
[2022-08-23] MEDS: methylPREDNISolone SOD SUCC 500 MG in DEXTROSE 5% 100 ML 200 MG IVPB ×2 (01:04→13:06)
[2022-08-23] MEDS: hydrALAZINE HCL 20 MG/ML VIAL 10 MG IV PUSH (03:35)
[2022-08-23] MEDS: HYDROmorphone HCL INJ (*CRX) 1 MG/ML SYR IV PUSH ×2 (04:04→11:28)
[2022-08-23 04:32] LABS: Hematocrit 39.5 % (42.0-52.0); Hemoglobin 13.9 g/dL (14.0-18.0); Immature Granulocyte Absolute 0.13 K/mm3 (0.00-0.031); Immature Granulocyte Percent A 1.6 % (0-0.5); Lymphocytes Absolute Auto 0.95 K/mm3 (0.9-3.2); Lymphocytes Percent Auto 11.6 % (18.3-44.2); Mean Corpuscular HGB Conc 35.2 g/dl (32-36); Mean Corpuscular Hemoglobin 30.5 pg (26-34); Mean Corpuscular Volume 86.8 fl (80-100); Monocytes Absolute Auto 0.2 K/mm3 (0.1-0.6); Monocytes Percent Auto 1.8 % (2.6-8.5); Platelet Count Result 325 k/mm3 (150-375); Red Blood Count 4.55 M/mm3 (4.6-6.20); Red Cell Distribution Width 12.8 % (11.5-14.5); White Blood Count 8.2 K/mm3 (4.5-10.0)
[2022-08-23 04:41] LABS: Alanine Aminotransferase 19 U/L (6-50); Aspartate Amino Transferase 19 U/L (17-59); Estimated CRCL calculation 113 ml/min; Estimated Glomerular Filt Rate > 60
[2022-08-23] MEDS: SODIUM CHLORIDE 0.9% IV 1,000 ML 125 ML IV CONT (05:30)
[2022-08-23] MEDS: ONDANSETRON INJ 4 MG/2 ML VIAL IV PUSH (08:09)
[2022-08-23] MEDS: BENZONATATE 100 MG CAPSULE PO (08:10)
[2022-08-23] MEDS: ENOXAPARIN 40 MG/0.4 ML SYRINGE SUB-Q (08:11)
[2022-08-23] MEDS: PANTOPRAZOLE SODIUM IV 40 MG VIAL IV PUSH ×2 (08:11→22:23)
--- NOTE | 2022-08-23 08:45 | PCPTNOTE ---
Attempted to see patient for PT at this time, however patient declined due to not feeling well and being nauseous.
--- NOTE | 2022-08-23 09:34 | WPDNEUROPN ---
Progress Note: A&P Assessment and Plan (1) Leg weakness, bilateral: Code(s): R29.898 - Other symptoms and signs involving the musculoskeletal system Status: Acute Assessment and Plan: Binu Justin is a 61 year old male with chronic lower back pain presenting for subacute, progressive weakness in bilateral lower extremites, as well as sensory changes and urinary/stool retention. CSF studies and MRI findings concerning for transverse myelitis. Could be seen in the setting of COVID-19 infection or another virus (HSV, EBV, CMV, VZV etc.) vs demyelinating disorder such as neuromyelitis optica or MOG related transverse myelitis. - Recommend Solumedrol 1g/day divided BID x 5 days, today is day 2 of 5 - Pending studies: CSF HSV, VZV, EBV, CMV, enterovirus; serum anti-MOG and anti-AQP4 - If no significant improvement after the completion of high dose steroids, consider plasmapheresis Subjective Date/time seen: 08/23/22 09:34 Interval history: Binu Justin is a 61 year old male with a history of chronic lower back pain who presented initially on 08/18 due to 1 day history of allodynia from the mid thorax down to his feet. He was also have other signs of illness including nausea, vomiting, diarrhea, sinus congestion. At that time he was positive for COVID. He presented to the ED again yesterday due to weakness in his lower extremities that has gradually gotten worse over the past few days. He walks normally at baseline, but became weak to the point that has needed to use a wheelchair. He reports numbness in his chest, thorax, lower extremities, and now somewhat in his hands as well as hyperaesthesia with touch especially to the trunk. Reflexes in the lower extremity were also noted to be diminished. Patient also reports difficulty with initiating urination and bowel movements. Lumbar puncture was done which showed cell count of 138, protein 216 and normal CSF glucose. Cervical and lumbar CT showed moderate to severe spondylosis but no evidence of acute injury. MRI of the spine is pending. He denies any changes in his vision, dysphagia/dysarthria, shortness of breath. MRI of spine revealed patchy areas of hyperintensities from T1 to T9. No obvious contrast enhancement, but limited due to motion artifact. He was started on high dose IV steroids for transverse myelitis. MRI brain was normal. Sent for CSF HSV, EBV, VZV, CMV, enterovirus as well as serum AQP4 ab and MOG ab. Interval history: Patient has received two doses of solumedrol so far. HR and BP are fairly stable. Patient denies any respiratory symptoms. He feels some improvement in his lower extremity strength. He is able to get his bottom off the bed which he was not able to do yesterday. He feels that his sensory deficits have descended compared to yesterday. He feels very gassy, bloated. Has had a lot of hiccups. Also feels jerking movement of his trunk. Review of Systems Constitutional: Constitutional: Reports body ache(s) and Reports weakness Eyes: Eyes: Reports no additional eye complaints ENT: Reports system reviewed and no additional complaints, except as documented Cardiovascular: Cardiovascular: Reports no additional cardiovascular complaints Respiratory: Respiratory: Reports no additional respiratory complaints Gastrointestinal: Gastrointestinal: Reports constipation Genitourinary: Genitourinary: Reports urinary hesitancy Musculoskeletal: Musculoskeletal: Reports myalgias Integumentary/Breasts: Skin/Breast: Reports system reviewed and no additional complaints, except as docu Neurologic: Reports as per HPI Psychiatric: Psychiatric: Reports no additional psychiatric complaints Exam Const: General: comfortable and no acute distress HENMT: General nose exam: Normal nares present Mouth: Yes moist mucous membranes Eyes: General: appearance normal, both eyes and all related structures Pupils: Equal, round and reactive pupils present EOM: EOMs intact bilate
--- NOTE | 2022-08-23 10:50 | WPDINTPN ---
Progress Note: A&P Assessment and Plan (1) Acute transverse myelitis: Code(s): G37.3 - Acute transverse myelitis in demyelinating disease of central nervous system Status: Acute Assessment and Plan: Patient presented with bilateral lower extremity weakness and numbness, it was ascending all the way up to his nipple line, upper extremities were not as affected his lower extremities. -CSF shows elevated WBC and protein normal glucose levels -CT scan of the spine shows spondylosis -MRI showed increased signal intensity in the spinal cord from T1-T9, likely related to viral mellitus, transfers myelitis, MS or acute disseminated encephalomyelitis. -appreciate Neurology evaluation and recommendations, likely transverse myelitis all viral myelitis at this time -patient being treated with high-dose steroids -pending CSF HSV, VZV, EBV, CMV -CSF culture with no growth -continue PT/OT (2) Ileus: Code(s): K56.7 - Ileus, unspecified Status: Acute Assessment and Plan: Patient developed abdominal distension, he comes, nausea vomiting. -obstructive series shows could distension illness: Consistent with ileus -unable to insert NG tube -currently NPO -Dulcolax suppository ordered -start patient on low-dose Reglan (3) COVID: Code(s): U07.1 - COVID-19 Status: Acute Assessment and Plan: Patient is COVID positive, has not received his COVID vaccine -dexamethasone was discontinued as patient is on high-dose steroids -will hold baricitinib as he has an ileus -continue COVID precautions (4) Tobacco abuse: Code(s): Z72.0 - Tobacco use Status: Acute Assessment and Plan: With counseled patient on cessation of smoking Plan DVT prophylaxis: Lovenox Nutrition: NPO Code Status: Full code Critical Care Time Spent: 34 minutes Due to a high probability of clinically significant, life threatening deterioration, the patient required my highest level of preparedness to intervene emergently and I personally spent this critical care time directly and personally managing the patient. This critical care time included obtaining a history; examining the patient; pulse oximetry; ordering and review of studies; arranging urgent treatment with development of a management plan; evaluation of patient's response to treatment; frequent reassessment; and discussions with other providers. It was exclusive of separately billable procedures and treating other patients and teaching time. Please see Assessment and Plan section and the rest of the note for further information on patient assessment and treatment Subjective Date/time seen: 08/23/22 10:50 Interval history: Reason for consult: Weakness, numbness > in Lower extremities. 08/22 MRI showed transverse myelitis 08/23/2022: Patient seen and examined the ICU, patient is awake, alert, oriented x3. Patient complains of hiccups, retching, did have an episode of vomiting. Complains of cramping and abdominal pain. Patient states states his weakness almost the same, although he states he may be able to move his lower extremities a little bit more. Hemodynamically stable. He has been passing some gas but unable to defecate. He states he is able to get his buttocks off the bed which she could not do yesterday Review of Systems Review of Systems: All systems reviewed & are unremarkable except as noted in HPI and below Exam Narrative: General: Patient in no acute distress HEENT:? Pupils equal and reactive, sclera is clear, moist oral mucosa Neck:? Supple Respiratory:? Clear to auscultation bilateral Cardiac:? S1-S2 normal regular rate and rhythm Abdomen:? Soft, nontender, nondistended,, normoactive bowel sounds Extremities:? No edema, warm, palpable pedal pulse Neuro:? Decreased strength and sensation 2/5 in lower extremities bilaterally up to the nipple line. Upper extremity strength and sensation 5/5 Skin:? No lesions noted Psych:? Grossly
--- NOTE | 2022-08-23 10:51 | PM.IMPN ---
Progress Note: A&P Assessment and Plan (1) Acute transverse myelitis: Code(s): G37.3 - Acute transverse myelitis in demyelinating disease of central nervous system Status: Acute Assessment and Plan: Thoracic MR showing increased signal intensity in the spinal cord from T1-to T9. Differential diagnosis includes viral myelitis, transverse myelitis, MS or acute disseminated encephalomyelitis. Most likely this is transverse myelitis or viral myelitis. This explains the CSF findings of elevated white count, predominantly lymphocytes and elevated protein levels. CSF culture NGTD. Neurology and nylon winder following and appreciate their input. patient has been started on high-dose Solu-Medrol for this reason. Continue PT and OT. Care coordination working on placement. (2) Ileus: Code(s): K56.7 - Ileus, unspecified Status: Acute Assessment and Plan: Patient's abdomen is more distended today. KUB shows moderate gaseous distension of the colon consistent with ileus. Lung bases are clear. He has been started on MiraLax. He has been made NPO. Will use duplex suppositories. Continue IV fluids. Minimize narcotics. Repeat x-ray in the morning. (3) COVID: Code(s): U07.1 - COVID-19 Status: Acute Assessment and Plan: Patient tested positive for COVID on 08/19/2022. Initially did not have an oxygen requirement but now is on 2 L. Continue baricitinib and steroids. Wean O2 as toelrated. Continue COVID precautions. Add sliding scale protocol since on steroids. (4) Tobacco abuse: Code(s): Z72.0 - Tobacco use Status: Acute Assessment and Plan: Patient has been educated about the benefits of smoking cessation. he states he is doing well not smoking since admission. Plan DVT prophylaxis: Lovenox Code status: Full Subjective Date/time seen: 08/23/22 10:51 Interval history: 61yo male with tobacco abuse here for LE weakness. No problems overnight. No chest pain. Shortness of breath is better. Had some nausea and vomiting earlier today. Did pass small amount of flatus. Lower extremity weakness is unchanged. Exam Narrative: AF 97.1 141/88 102 23 92% 2L Gen - NARD Chest - Scattered rhonchi appreciated anteriorly in the flanks. Slight wheeze noted in the right flank as well. Normal respiratory rate. CV - RRR S1/S2. Telemetry showing no significant dysrhythmias Abd -soft. Mildly protuberant and tympanitic. Positive bowel sounds. -Spann catheter secured draining clear yellow urine. Ext - No pedal edema Neuro - alert and appropriate. Speech is clear. Normal upper extremity strength. Hip flexors, dorsiflexion and plantar flexion strength 2/5. Psych - Normal mood and affect Skin - Warm and dry Objective Data Vital Signs Vital Signs: Vital Signs - 24 hr 08/22/22 11:50 08/22/22 12:00 08/22/22 12:00 Temperature 97.9 F 97.5 F L Pulse Rate 71 58 L Respiratory Rate 19 22 H Blood Pressure 142/83 H 140/87 Pulse Oximetry 100 99 100 Oxygen Delivery Nasal Cannula Oxygen Flow Rate 2 08/22/22 12:00 08/22/22 13:41 08/22/22 13:20 Temperature Pulse Rate 61 Respiratory Rate Blood Pressure Pulse Oximetry Oxygen Delivery Nasal Cannula Nasal Cannula Oxygen Flow Rate 2 2 08/22/22 14:00 08/22/22 14:00 08/22/22 16:00 Temperature 97.9 F Pulse Rate 63 76 76 Respiratory Rate 15 Blood Pressure 122/82 Pulse Oximetry 99 Oxygen Delivery Oxygen Flow Rate 08/22/22 16:00 08/22/22 16:00 08/22/22 18:00 Temperature 98.5 F Pulse Rate 83 80 Respiratory Rate 20 Blood Pressure 147/89 H Pulse Oximetry 99 97 Oxygen Delivery Nasal Cannula Oxygen Flow Rate 2 08/22/22 18:00 08/22/22 20:00 08/22/22 20:00 Temperature 98.8 F Pulse Rate 88 77 88 Respiratory Rate 17 17 Blood Pressure 134/92 H Pulse Oximetry 97 97 Oxygen Delivery Nasal Cannula Oxygen Flow Rate 2
--- NOTE | 2022-08-23 11:25 | PCOTNOTE ---
Per RN, patient getting NG tube placed - patient also observed to be vomiting in bed. RN requested OT try again later to see for therapy. Will continue plan of care.
[2022-08-23] MEDS: BISACODYL 10 MG SUPPOSITORY RECTAL (13:05)
[2022-08-23] MEDS: DEXTROSE 5%/0.9% SOD CHL 1,000 ML 100 ML IV CONT ×2 (13:05→23:41)
[2022-08-23] MEDS: METOCLOPRAMIDE HCL INJ 10 MG/2 ML VIAL 5 MG IV PUSH ×2 (13:05→16:59)
[2022-08-23 16:36] LABS: Glucose Point of Care 129 mg/dl (65-105)
[2022-08-23] MEDS: KETOROLAC 15 MG/ML VIAL (*BKC) IV PUSH (16:42)
[2022-08-23 17:14] LABS: Glucose Point of Care 146 mg/dl (65-105)
[2022-08-24] VITALS (12 sets, daily range): BP systolic 114–145; BP diastolic 69–84; PULSE 68–94; RESP 12–28; TEMP 36.4–36.6; O2SAT 95–100
[2022-08-24] MEDS: METOCLOPRAMIDE HCL INJ 10 MG/2 ML VIAL 5 MG IV PUSH ×2 (01:00→07:01)
[2022-08-24 01:09] LABS: Glucose Point of Care 152 mg/dl (65-105)
[2022-08-24] MEDS: methylPREDNISolone SOD SUCC 500 MG in DEXTROSE 5% 100 ML 200 MG IVPB ×2 (02:17→14:59)
[2022-08-24 04:26] LABS: Basophils Percent Auto 0.1 % (0.2-1.2); Hematocrit 38.4 % (42.0-52.0); Hemoglobin 13.2 g/dL (14.0-18.0); Immature Granulocyte Absolute 0.27 K/mm3 (0.00-0.031); Immature Granulocyte Percent A 1.3 % (0-0.5); Lymphocytes Absolute Auto 1.08 K/mm3 (0.9-3.2); Lymphocytes Percent Auto 5.3 % (18.3-44.2); Mean Corpuscular HGB Conc 34.4 g/dl (32-36); Mean Corpuscular Hemoglobin 30.6 pg (26-34); Mean Corpuscular Volume 89.1 fl (80-100); Mean Platelet Volume 8.9 fl (7.4-10.4); Monocytes Absolute Auto 0.9 K/mm3 (0.1-0.6); Monocytes Percent Auto 4.5 % (2.6-8.5); Neutrophils Percent Auto 88.8 % (45.5-73.1); Platelet Count Result 332 k/mm3 (150-375); Red Blood Count 4.31 M/mm3 (4.6-6.20); Red Cell Distribution Width 13.2 % (11.5-14.5); White Blood Count 20.3 K/mm3 (4.5-10.0)
[2022-08-24 04:39] LABS: Alanine Aminotransferase 18 U/L (6-50); Albumin Level 3.5 g/dL (3.5-5.1); Alkaline Phosphatase 79 U/L (38-126); Anion Gap 6 mmol/L (8-16); Aspartate Amino Transferase 19 U/L (17-59); Bilirubin,Total 0.4 mg/dL (0.2-1.3); Blood Urea Nitrogen 22 mg/dL (9-20); Calcium 8.5 mg/dL (8.4-10.2); Carbon Dioxide 27 mmol/L (22-30); Chloride 104 mmol/L (98-107); Estimated CRCL calculation 98 ml/min; Estimated Glomerular Filt Rate > 60; Glucose 149 mg/dL (65-110); Magnesium 2.2 mg/dL (1.6-2.3); Phosphorus 2.8 mg/dL (2.5-4.5); Sodium 137 mmol/L (137-145)
[2022-08-24 05:39] LABS: CMV DNA Quant PCR IU/mL Not Detected; Cytomegalovirus DNA Quant PCR Not Detected log IU/mL; Cytomegalovirus DNA Source CSF
[2022-08-24 05:43] LABS: Folic Acid 8.9 ng/mL (2.76->20)
[2022-08-24] MEDS: DEXTROSE 5%/0.9% SOD CHL 1,000 ML 100 ML IV CONT ×2 (09:44→22:01)
[2022-08-24] MEDS: ENOXAPARIN 40 MG/0.4 ML SYRINGE SUB-Q (09:46)
[2022-08-24] MEDS: PANTOPRAZOLE SODIUM IV 40 MG VIAL IV PUSH ×2 (09:46→22:02)
[2022-08-24] MEDS: BISACODYL 10 MG SUPPOSITORY RECTAL (09:46)
[2022-08-24] MEDS: polyethylene glycoL 3350 17 GM POWD.PACK PO (09:46)
--- NOTE | 2022-08-24 11:27 | WPDNEUROPN ---
Progress Note: A&P Assessment and Plan (1) Acute transverse myelitis: Code(s): G37.3 - Acute transverse myelitis in demyelinating disease of central nervous system Status: Acute (2) COVID: Code(s): U07.1 - COVID-19 Status: Acute Plan Binu Justin is a 61 year old male with chronic lower back pain presenting for subacute, progressive weakness in bilateral lower extremites, as well as sensory changes and urinary/stool retention. CSF studies and MRI findings concerning for transverse myelitis. Could be seen in the setting of COVID-19 infection or another virus (HSV, EBV, CMV, VZV etc.) vs demyelinating disorder such as neuromyelitis optica or MOG related transverse myelitis. - Recommend Solumedrol 1g/day divided BID x 5 days, today is day 3 of 5 - Pending studies: CSF HSV, VZV, EBV, CMV, enterovirus; serum anti-MOG and anti-AQP4 Subjective Date/time seen: 08/24/22 11:27 Interval history: Binu Justin is a 61 year old male with a history of chronic lower back pain who presented initially on 08/18 due to 1 day history of allodynia from the mid thorax down to his feet. He was also have other signs of illness including nausea, vomiting, diarrhea, sinus congestion. At that time he was positive for COVID. He presented to the ED again yesterday due to weakness in his lower extremities that has gradually gotten worse over the past few days. He walks normally at baseline, but became weak to the point that has needed to use a wheelchair. He reports numbness in his chest, thorax, lower extremities, and now somewhat in his hands as well as hyperaesthesia with touch especially to the trunk. Reflexes in the lower extremity were also noted to be diminished. Patient also reports difficulty with initiating urination and bowel movements. Lumbar puncture was done which showed cell count of 138, protein 216 and normal CSF glucose. Cervical and lumbar CT showed moderate to severe spondylosis but no evidence of acute injury. MRI of the spine is pending. He denies any changes in his vision, dysphagia/dysarthria, shortness of breath. MRI of spine revealed patchy areas of hyperintensities from T1 to T9. No obvious contrast enhancement, but limited due to motion artifact. He was started on high dose IV steroids for transverse myelitis. MRI brain was normal. Sent for CSF HSV, EBV, VZV, CMV, enterovirus as well as serum AQP4 ab and MOG ab. Interval history: Has received 2 days of solumedrol. Hemodynamically has been stable. He feels that pain and numbness have improved. No major change in weakness compared to yesterday. Still feeling pretty gassy. Discussed plasmapheresis further with patient. He currently feels that he would not want to move forward with that due to the more invasive nature of the procedure. Review of Systems Constitutional: Constitutional: Reports weakness Eyes: Eyes: Reports no additional eye complaints ENT: Reports system reviewed and no additional complaints, except as documented Cardiovascular: Cardiovascular: Reports no additional cardiovascular complaints Respiratory: Respiratory: Reports cough Gastrointestinal: Gastrointestinal: Reports bloating Comments: stool retention Genitourinary: Comments: urinary retention Musculoskeletal: Musculoskeletal: Reports myalgias Integumentary/Breasts: Skin/Breast: Reports system reviewed and no additional complaints, except as docu Neurologic: Reports as per HPI Psychiatric: Psychiatric: Reports anxiety Exam Const: General: comfortable and no acute distress HENMT: General nose exam: Normal nares present Mouth: Yes moist mucous membranes Eyes: General: appearance normal, both eyes and all related structures Pupils: Equal, round and reactive pupils present EOM: EOMs intact bilaterally Resp: Effort & Inspection: normal respiratory effort Auscultation: clear to auscultation bilaterally Cardio: Rate: regular rate Rhythm: regular rhythm GI: GI Palp:
--- NOTE | 2022-08-24 12:14 | PM.IMPN ---
Progress Note: A&P Assessment and Plan (1) Acute transverse myelitis: Code(s): G37.3 - Acute transverse myelitis in demyelinating disease of central nervous system Status: Acute Assessment and Plan: Thoracic MR showing increased signal intensity in the spinal cord from T1 to T9. Differential diagnosis includes viral myelitis, transverse myelitis, MS or acute disseminated encephalomyelitis. Most likely this is transverse myelitis or viral myelitis. This explains the CSF findings of elevated white count, predominantly lymphocytes and elevated protein levels. CSF culture NGTD. Viral studies pending. WBC noted felt related to steroids. Neurology following and appreciate their input. Patient has been started on high-dose Solu-Medrol for this reason. Minimal improvement. Continue PT and OT. Care coordination working on placement. (2) Ileus: Code(s): K56.7 - Ileus, unspecified Status: Acute Assessment and Plan: Patient's abdomen is less distended today. KUB shows normal bowel gas pattern now. Passing flatus but no BM. Continue MiraLax and suppositories. Continue IV fluids. Minimize narcotics. Start clears. (3) COVID: Code(s): U07.1 - COVID-19 Status: Acute Assessment and Plan: Patient tested positive for COVID on 08/19/2022. Initially did not have an oxygen requirement but now is on 2 L. Continue baricitinib and steroids. Wean O2 as toelrated. Continue COVID precautions. (4) Tobacco abuse: Code(s): Z72.0 - Tobacco use Status: Acute Assessment and Plan: Patient has been educated about the benefits of smoking cessation. he states he is doing well not smoking since admission. Plan DVT prophylaxis: Lovenox Code status: Full Subjective Date/time seen: 08/24/22 12:14 Interval history: 61yo male with tobacco abuse here for LE weakness. Patient is passing flatus but no bowel movements. His abdominal discomfort has improved today. He has also had improved sensation his upper chest and hands. Still very weak in the legs bilaterally. Exam Narrative: AF 97.5 114/78 86 28 96% 2L Gen - NARD lying almost flat in bed Chest - clear anteriorly and in the flanks. nml RR CV - RRR S1/S2. Telemetry showing no significant dysrhythmias Abd - soft. Less distended. Mild diffusely tender. +BS. -Spann catheter secured draining clear yellow urine. Ext - No pedal edema Neuro - alert and appropriate. Speech is clear. Normal upper extremity strength. Hip flexors, dorsiflexion and plantar flexion strength unchanged at 2/5. Psych - Normal mood and affect Skin - Warm and dry Objective Data Vital Signs Vital Signs: Vital Signs - 24 hr 08/23/22 14:00 08/23/22 14:00 08/23/22 16:00 Temperature 98 F Pulse Rate 64 64 70 Respiratory Rate 12 Blood Pressure 104/70 Pulse Oximetry 98 Oxygen Delivery Oxygen Flow Rate 08/23/22 16:00 08/23/22 16:00 08/23/22 18:00 Temperature 97.9 F Pulse Rate 70 70 70 Respiratory Rate 16 16 Blood Pressure 106/65 Pulse Oximetry 94 94 Oxygen Delivery Nasal Cannula Oxygen Flow Rate 2 08/23/22 18:00 08/23/22 20:00 08/23/22 20:00 Temperature Pulse Rate 70 76 76 Respiratory Rate 19 14 Blood Pressure 123/81 Pulse Oximetry 95 98 Oxygen Delivery Nasal Cannula Oxygen Flow Rate 2 08/23/22 20:00 08/23/22 22:00 08/24/22 00:00 Temperature 98.1 F Pulse Rate 76 76 68 Respiratory Rate 14 17 Blood Pressure 127/82 Pulse Oximetry 97 97 Oxygen Delivery Nasal Cannula Oxygen Flow Rate 2 08/24/22 00:00 08/24/22 00:00 08/24/22 04:00 Temperature 97.9 F Pulse Rate 68 68 72 Respiratory Rate 27 H 20 Blood Pressure 137/76 Pulse Oximetry 100 98 Oxygen Delivery Nasal Cannula Oxygen Flow Rate 2 08/24/22 04:00 08/24/22 04:00 08/24/22 08:00 Temperature 98 F 97.8 F Pulse Rate 72 72 75 Respiratory Rate 20 12 Blood Pressure 140/74 137/75 Pulse Oxi
[2022-08-24 13:01] LABS: Glucose Point of Care 137 mg/dl (65-105)
--- NOTE | 2022-08-24 16:08 | PC.NURSE ---
This patient, Binu Justin, was transferred to [[id number] ] on 08/24/22 at 1538. Personal belongings sent with patient. Report given to [ Stewart TOMAS]. Appropriate documentation sent with patient.
[2022-08-24 16:57] LABS: Epstein Barr Virus DNA PCR Not Detected (Not Detected); Source Epstein Barr Virus CSF
[2022-08-24 18:49] LABS: Glucose Point of Care 141 mg/dl (65-105)
[2022-08-24 20:53] LABS: Herpes Simplex Type 1 DNA PCR Not Detected (Not Detected); Herpes Simplex Type 2 DNA PCR Not Detected (Not Detected)
[2022-08-24 23:59] LABS: Glucose Point of Care 136 mg/dl (65-105)
[2022-08-25] VITALS (14 sets, daily range): BP systolic 135–154; BP diastolic 76–91; PULSE 63–96; RESP 14–20; TEMP 36.4–36.8; O2SAT 95–99
[2022-08-25] MEDS: methylPREDNISolone SOD SUCC 500 MG in DEXTROSE 5% 100 ML 200 MG IVPB ×2 (01:24→15:19)
[2022-08-25 04:50] LABS: Basophils Percent Auto 0.1 % (0.2-1.2); Hematocrit 39.8 % (42.0-52.0); Hemoglobin 13.8 g/dL (14.0-18.0); Immature Granulocyte Absolute 0.13 K/mm3 (0.00-0.031); Immature Granulocyte Percent A 0.8 % (0-0.5); Lymphocytes Absolute Auto 0.58 K/mm3 (0.9-3.2); Lymphocytes Percent Auto 3.5 % (18.3-44.2); Mean Corpuscular HGB Conc 34.7 g/dl (32-36); Mean Corpuscular Hemoglobin 30.7 pg (26-34); Mean Corpuscular Volume 88.4 fl (80-100); Mean Platelet Volume 8.9 fl (7.4-10.4); Monocytes Absolute Auto 0.5 K/mm3 (0.1-0.6); Monocytes Percent Auto 3.1 % (2.6-8.5); Neutrophils Absolute Auto 15.2 K/mm3 (1.3-6.7); Neutrophils Percent Auto 92.5 % (45.5-73.1); Platelet Count Result 318 k/mm3 (150-375); Red Cell Distribution Width 13.2 % (11.5-14.5); White Blood Count 16.4 K/mm3 (4.5-10.0)
[2022-08-25 04:59] LABS: Albumin Level 3.7 g/dL (3.5-5.1); Anion Gap 9 mmol/L (8-16); Blood Urea Nitrogen 22 mg/dL (9-20); Calcium 8.2 mg/dL (8.4-10.2); Carbon Dioxide 24 mmol/L (22-30); Chloride 104 mmol/L (98-107); Estimated CRCL calculation 113 ml/min; Estimated Glomerular Filt Rate > 60; Glucose 145 mg/dL (65-110); Magnesium 2.4 mg/dL (1.6-2.3); Phosphorus 2.8 mg/dL (2.5-4.5); Potassium 3.6 mmol/L (3.4-5.0); Sodium 137 mmol/L (137-145)
[2022-08-25 05:09] LABS: Glucose Point of Care 160 mg/dl (65-105)
[2022-08-25] MEDS: ONDANSETRON INJ 4 MG/2 ML VIAL IV PUSH (09:08)
[2022-08-25] MEDS: ENOXAPARIN 40 MG/0.4 ML SYRINGE SUB-Q (09:08)
[2022-08-25] MEDS: polyethylene glycoL 3350 17 GM POWD.PACK PO (09:08)
[2022-08-25] MEDS: BISACODYL 10 MG SUPPOSITORY RECTAL (09:09)
[2022-08-25] MEDS: PANTOPRAZOLE SODIUM IV 40 MG VIAL IV PUSH ×2 (09:09→19:49)
[2022-08-25] MEDS: DEXTROSE 5%/0.9% SOD CHL 1,000 ML 100 ML IV CONT (09:17)
[2022-08-25 12:06] LABS: Glucose Point of Care 125 mg/dl (65-105)
[2022-08-25 13:04] LABS: VZV DNA, QL PCR Not Detected (Not Detected); Varicella Zoster Source CSF
--- NOTE | 2022-08-25 14:50 | PM.IMPN ---
Progress Note: A&P Assessment and Plan (1) Acute transverse myelitis: Code(s): G37.3 - Acute transverse myelitis in demyelinating disease of central nervous system Status: Acute Assessment and Plan: Thoracic MR showing increased signal intensity in the spinal cord from T1 to T9. Differential diagnosis includes viral myelitis, transverse myelitis, MS or acute disseminated encephalomyelitis. Most likely this is transverse myelitis or viral myelitis. This explains the CSF findings of elevated white count, predominantly lymphocytes and elevated protein levels. CSF culture NGTD. CSF HSV, EBV, CMV and VZV negative. WBC elevated due to steroids. WBC coming down. Neurology following and appreciate their input. Patient has been started on high-dose Solu-Medrol. Some improvement noted. Continue PT and OT. Care coordination working on placement. (2) Ileus: Code(s): K56.7 - Ileus, unspecified Status: Acute Assessment and Plan: Patient's abdomen is less distended today and now having BMs. KUB shows normal bowel gas pattern now. Continue MiraLax. Stop IV fluids. Minimize narcotics. Advance diet (3) COVID: Code(s): U07.1 - COVID-19 Status: Acute Assessment and Plan: Patient tested positive for COVID on 08/19/22. Initially did not have an oxygen requirement but required up to 2 L. On steroids. Baricitinib started. Continue COVID precautions. (4) Tobacco abuse: Code(s): Z72.0 - Tobacco use Status: Acute Assessment and Plan: Patient has been educated about the benefits of smoking cessation. Plan DVT prophylaxis: Lovenox Code status: Full Subjective Date/time seen: 08/25/22 14:50 Interval history: 61yo male with tobacco abuse here for LE weakness. No change in his wekaness. Minimal cough. No SOB or CP. No n/v. Decreased appetite. +flatus and BMs. Exam Narrative: AF 97.9 154/77 63 14 99% ra Gen - NARD lying almost flat in bed Chest - ew basilar rhonchi o/w clear CV - RRR S1/S2. telemetry showing PVCs. Abd - soft. ND. less tender. +BS -Spann catheter secured draining clear yellow urine. Ext - No pedal edema Neuro - alert and appropriate. Speech is clear. Normal upper extremity strength. LE strength slightly better at 2+/5. Psych - Normal mood and affect Skin - Warm and dry Objective Data Vital Signs Vital Signs: Vital Signs - 24 hr 08/24/22 15:14 08/24/22 16:00 08/24/22 16:00 Temperature 97.8 F 98 F Pulse Rate 90 86 78 Respiratory Rate 22 H 16 Blood Pressure 126/72 145/69 H Pulse Oximetry 96 98 Oxygen Delivery 08/24/22 16:00 08/24/22 18:00 08/24/22 20:00 Temperature 97.9 F Pulse Rate 91 89 Respiratory Rate 18 Blood Pressure 138/76 Pulse Oximetry 98 Oxygen Delivery Room Air 08/25/22 00:00 08/24/22 20:00 08/24/22 20:00 Temperature 98.2 F Pulse Rate 89 92 Respiratory Rate 16 Blood Pressure 148/76 H Pulse Oximetry 98 98 Oxygen Delivery Room Air 08/24/22 22:00 08/25/22 00:00 08/25/22 00:00 Temperature Pulse Rate 76 90 Respiratory Rate Blood Pressure Pulse Oximetry 98 Oxygen Delivery Room Air 08/25/22 02:00 08/25/22 04:00 08/25/22 04:00 Temperature Pulse Rate 85 80 Respiratory Rate Blood Pressure Pulse Oximetry 98 Oxygen Delivery Room Air 08/25/22 04:00 08/25/22 06:00 08/25/22 08:00 Temperature 97.9 F 98 F Pulse Rate 80 72 66 Respiratory Rate 20 16 Blood Pressure 151/78 H 149/83 H Pulse Oximetry 99 95 Oxygen Delivery 08/25/22 12:00 Temperature 97.9 F Pulse Rate 63 Respiratory Rate 14 Blood Pressure 154/77 H Pulse Oximetry 99 Oxygen Delivery Intake/Output Intake/Output: Intake & Output 08/22/22 08/23/22 08/24/22 08/25/22 23:59 23:59 23:59 23:59 Intake Total 4088 2551 2216 1308 Output Total 4000 1450 1000 1000 Balance 88 1101 1216 308 Meds/Results Medications: Active Medications Ge
[2022-08-25 18:25] LABS: Glucose Point of Care 129 mg/dl (65-105)
[2022-08-25 23:52] LABS: Glucose Point of Care 117 mg/dl (65-105)
[2022-08-26] VITALS (16 sets, daily range): BP systolic 124–152; BP diastolic 68–93; PULSE 59–90; RESP 18–20; TEMP 36.2–37; O2SAT 92–100
[2022-08-26] MEDS: methylPREDNISolone SOD SUCC 500 MG in DEXTROSE 5% 100 ML 200 MG IVPB ×2 (02:01→14:40)
[2022-08-26 05:01] LABS: Basophils Percent Auto 0.1 % (0.2-1.2); Hematocrit 36.9 % (42.0-52.0); Hemoglobin 12.8 g/dL (14.0-18.0); Immature Granulocyte Absolute 0.08 K/mm3 (0.00-0.031); Immature Granulocyte Percent A 0.8 % (0-0.5); Lymphocytes Absolute Auto 0.65 K/mm3 (0.9-3.2); Lymphocytes Percent Auto 6.3 % (18.3-44.2); Mean Corpuscular HGB Conc 34.7 g/dl (32-36); Mean Corpuscular Hemoglobin 30.8 pg (26-34); Mean Corpuscular Volume 88.7 fl (80-100); Mean Platelet Volume 9.2 fl (7.4-10.4); Monocytes Absolute Auto 0.5 K/mm3 (0.1-0.6); Monocytes Percent Auto 4.5 % (2.6-8.5); Neutrophils Absolute Auto 9.1 K/mm3 (1.3-6.7); Neutrophils Percent Auto 88.3 % (45.5-73.1); Platelet Count Result 274 k/mm3 (150-375); Red Blood Count 4.16 M/mm3 (4.6-6.20); Red Cell Distribution Width 13.1 % (11.5-14.5); White Blood Count 10.3 K/mm3 (4.5-10.0)
[2022-08-26 05:15] LABS: Alanine Aminotransferase 21 U/L (6-50); Aspartate Amino Transferase 19 U/L (17-59); Estimated CRCL calculation 113 ml/min; Estimated Glomerular Filt Rate > 60
--- NOTE | 2022-08-26 10:01 | PM.IMPN ---
Progress Note: A&P Assessment and Plan (1) Acute transverse myelitis: Code(s): G37.3 - Acute transverse myelitis in demyelinating disease of central nervous system Status: Acute Assessment and Plan: Thoracic MR showing increased signal intensity in the spinal cord from T1 to T9. Differential diagnosis includes viral myelitis, transverse myelitis, MS or acute disseminated encephalomyelitis. Most likely this is transverse myelitis or viral myelitis. This explains the CSF findings of elevated white count, predominantly lymphocytes and elevated protein levels. CSF culture NGTD. CSF HSV, EBV, CMV, Enterovirus and VZV negative. WBC elevated due to steroids and better now. Neurology following and appreciate their input. Patient has been started on high-dose Solu-Medrol for 5 days (last dose tomorrow morning). He did not want plasmapheresis. Some improvement noted. Continue PT and OT. Care coordination working on placement. (2) Ileus: Code(s): K56.7 - Ileus, unspecified Status: Acute Assessment and Plan: Patient's abdomen is less distended today and now having BMs. KUB shows normal bowel gas pattern now. Continue MiraLax. Minimize narcotics. Advance diet to regular today (3) COVID: Code(s): U07.1 - COVID-19 Status: Acute Assessment and Plan: Patient tested positive for COVID on 08/19/22. Initially did not have an oxygen requirement but required up to 2 L. On steroids. Baricitinib was started. Continue COVID precautions. Will stop Baricitinib since clinically better and not on O2. (4) Tobacco abuse: Code(s): Z72.0 - Tobacco use Status: Acute Assessment and Plan: Patient has been educated about the benefits of smoking cessation. Plan DVT prophylaxis: Lovenox Code status: Full Subjective Date/time seen: 08/26/22 10:01 Interval history: 61yo male with tobacco abuse here for LE weakness. No chest pain or shortness of breath. Hands feel less numb today. They are ?itchy . Feels the chest numbness has improved and now the level is about the mid abdomen area. He has improved upper body strength and can roll in bed. His legs are still very weak Exam Narrative: AF 97.1 128/74 68 18 94% ra Gen - NARD lying almost flat in bed Chest - CTA bilaterally, nml RR CV - RRR S1/S2. telemetry showing no significant dysrhythmias Abd - soft. ND/NT. +BS -Spann catheter secured draining clear yellow urine. Ext - No pedal edema Neuro - alert and appropriate. Speech is clear. Normal upper extremity strength. LE strength about the same: 2+/5 hip flexors; 4-/5 plantar and 3/5 L>R dorsiflexion. Psych - Normal mood and affect Skin - Warm and dry Objective Data Vital Signs Vital Signs: Vital Signs - 24 hr 08/25/22 12:00 08/25/22 15:51 08/25/22 12:00 Temperature 97.9 F 97.7 F Pulse Rate 63 76 69 Respiratory Rate 14 16 Blood Pressure 154/77 H 146/91 H Pulse Oximetry 99 99 Oxygen Delivery 08/25/22 12:00 08/25/22 14:00 08/25/22 16:00 Temperature Pulse Rate 76 86 78 Respiratory Rate 16 Blood Pressure Pulse Oximetry 99 Oxygen Delivery Room Air 08/25/22 16:00 08/25/22 20:15 08/25/22 20:00 Temperature 97.6 F Pulse Rate 78 90 96 Respiratory Rate 16 16 Blood Pressure 135/82 Pulse Oximetry 99 98 Oxygen Delivery Room Air 08/25/22 20:00 08/25/22 22:00 08/25/22 23:50 Temperature 97.5 F L Pulse Rate 71 78 Respiratory Rate 20 Blood Pressure 136/83 Pulse Oximetry 98 95 Oxygen Delivery Room Air 08/26/22 00:00 08/26/22 00:00 08/26/22 02:00 Temperature Pulse Rate 79 65 Respiratory Rate Blood Pressure Pulse Oximetry 95 Oxygen Delivery Room Air 08/26/22 03:14 08/26/22 04:00 08/26/22 04:00 Temperature 98.2 F Pulse Rate 69 59 L Respiratory Rate 20 Blood Pressure 126/71 Pulse Oximetry 100 100 Oxygen Delivery Room Air 08/26/22 06:00 08/26/22 07:45
[2022-08-26] MEDS: polyethylene glycoL 3350 17 GM POWD.PACK PO (10:25)
[2022-08-26] MEDS: ENOXAPARIN 40 MG/0.4 ML SYRINGE SUB-Q (10:25)
[2022-08-26 12:48] LABS: Glucose Point of Care 134 mg/dl (65-105)
[2022-08-26 16:49] LABS: Glucose Point of Care 149 mg/dl (65-105)
[2022-08-26 23:06] LABS: Glucose Point of Care 150 mg/dl (65-105)
[2022-08-27] VITALS (9 sets, daily range): BP systolic 125–138; BP diastolic 76–84; PULSE 70–103; RESP 18–21; TEMP 36.4–36.9; O2SAT 96–100
[2022-08-27] MEDS: methylPREDNISolone SOD SUCC 500 MG in DEXTROSE 5% 100 ML 200 MG IVPB (01:17)
[2022-08-27 04:41] LABS: Basophils Percent Auto 0.1 % (0.2-1.2); Hematocrit 37.2 % (42.0-52.0); Hemoglobin 13.1 g/dL (14.0-18.0); Immature Granulocyte Absolute 0.14 K/mm3 (0.00-0.031); Immature Granulocyte Percent A 1.1 % (0-0.5); Lymphocytes Absolute Auto 0.56 K/mm3 (0.9-3.2); Lymphocytes Percent Auto 4.4 % (18.3-44.2); Mean Corpuscular HGB Conc 35.2 g/dl (32-36); Mean Corpuscular Hemoglobin 30.7 pg (26-34); Mean Corpuscular Volume 87.1 fl (80-100); Mean Platelet Volume 9.3 fl (7.4-10.4); Monocytes Absolute Auto 0.5 K/mm3 (0.1-0.6); Monocytes Percent Auto 3.9 % (2.6-8.5); Neutrophils Absolute Auto 11.5 K/mm3 (1.3-6.7); Neutrophils Percent Auto 90.5 % (45.5-73.1); Platelet Count Result 279 k/mm3 (150-375); Red Blood Count 4.27 M/mm3 (4.6-6.20); Red Cell Distribution Width 13.1 % (11.5-14.5); White Blood Count 12.7 K/mm3 (4.5-10.0)
[2022-08-27 04:58] LABS: Alanine Aminotransferase 20 U/L (6-50); Aspartate Amino Transferase 17 U/L (17-59); Estimated CRCL calculation 98 ml/min; Estimated Glomerular Filt Rate > 60
[2022-08-27 05:16] LABS: Glucose Point of Care 139 mg/dl (65-105)
--- NOTE | 2022-08-27 10:44 | PM.IMPN ---
Progress Note: A&P Assessment and Plan (1) Acute transverse myelitis: Code(s): G37.3 - Acute transverse myelitis in demyelinating disease of central nervous system Status: Acute Assessment and Plan: Thoracic MR showing increased signal intensity in the spinal cord from T1 to T9. Differential diagnosis includes viral myelitis, transverse myelitis, MS or acute disseminated encephalomyelitis. Most likely this is transverse myelitis or viral myelitis. This explains the CSF findings of elevated white count, predominantly lymphocytes and elevated protein levels. CSF culture NGTD. CSF HSV, EBV, CMV, Enterovirus and VZV negative. WBC elevated due to steroids but higher now for unclear reasons. Neurology following and appreciate their input. Patient completed 5 days of high-dose Solu-Medrol (last dose 08/27 at 2AM). He did not want plasmapheresis. Some improvement noted overall. Continue PT and OT. Care coordination working on placement. (2) Ileus: Code(s): K56.7 - Ileus, unspecified Status: Acute Assessment and Plan: Patient's abdomen distention has resolved. KUB shows normal bowel gas pattern now. Continue MiraLax. Minimize narcotics. Regular diet (3) COVID: Code(s): U07.1 - COVID-19 Status: Acute Assessment and Plan: Patient tested positive for COVID on 08/19/22. Initially did not have an oxygen requirement but required up to 2 L so steroids and Baricitinib started. Stopped Baricitinib since clinically better and not on O2. Continue COVID precautions. Will stop Decadron today since lungs are clear and no O2 requirement. (4) Tobacco abuse: Code(s): Z72.0 - Tobacco use Status: Acute Assessment and Plan: Patient has been educated about the benefits of smoking cessation. Plan DVT prophylaxis: Lovenox Code status: Full Subjective Date/time seen: 08/27/22 10:44 Interval history: 61yo male with tobacco abuse here for LE weakness. Patient has a morning cough productive of green-yellow sputum. He feels it is related to him not smoking. He denies any chest pain shortness of breath. Passing flatus. He has occasional small liquid stool. Numbness improving to the hands. Discomfort now at the level of the umbilicus Exam Narrative: AF 97.5 125/84 77 20 96% ra Gen - NARD lying almost flat in bed Chest - CTA bilaterally, nml RR CV - RRR S1/S2. telemetry showing no significant dysrhythmias Abd - soft. ND/NT. +BS -Spann catheter secured draining clear yellow urine. Ext - No pedal edema Neuro - alert and appropriate. Speech is clear. Normal upper extremity strength. LE strength about the same Psych - Normal mood and affect Skin - Warm and dry Objective Data Vital Signs Vital Signs: Vital Signs - 24 hr 08/26/22 12:41 08/26/22 12:00 08/26/22 15:08 Temperature 97.9 F Pulse Rate 87 Respiratory Rate 20 Blood Pressure 152/93 H Pulse Oximetry 96 96 Oxygen Delivery Room Air Room Air 08/26/22 12:00 08/26/22 14:00 08/26/22 16:00 Temperature Pulse Rate 73 76 Respiratory Rate Blood Pressure Pulse Oximetry Oxygen Delivery Room Air 08/26/22 16:51 08/26/22 16:00 08/26/22 20:33 Temperature 98.6 F 98.2 F Pulse Rate 66 83 90 Respiratory Rate 20 20 Blood Pressure 124/68 149/91 H Pulse Oximetry 92 99 Oxygen Delivery 08/26/22 20:00 08/26/22 20:00 08/27/22 00:00 Temperature Pulse Rate 85 82 Respiratory Rate Blood Pressure Pulse Oximetry 99 Oxygen Delivery Room Air 08/27/22 04:00 08/27/22 04:00 08/27/22 08:47 Temperature 98.2 F 97.5 F L Pulse Rate 78 70 77 Respiratory Rate 20 20 Blood Pressure 138/81 125/84 Pulse Oximetry 100 96 Oxygen Delivery Intake/Output Intake/Output: Intake & Output 08/24/22 08/25/22 08/26/22 08/27/22 23:59 23:59 23:59 23:59 Intake Total 2216 3926 1616 108 Output Total 1000 1500 1200 1250 Balance 1212 [phone]
[2022-08-27] MEDS: ENOXAPARIN 40 MG/0.4 ML SYRINGE SUB-Q (10:59)
[2022-08-27] MEDS: PANTOPRAZOLE 40 MG TABLET PO (10:59)
[2022-08-27] MEDS: polyethylene glycoL 3350 17 GM POWD.PACK PO (11:00)
[2022-08-27 12:38] LABS: Glucose Point of Care 129 mg/dl (65-105)
[2022-08-27 18:11] LABS: Glucose Point of Care 118 mg/dl (65-105)
[2022-08-27 20:03] LABS: Glucose Point of Care 136 mg/dl (65-105)
[2022-08-27] MEDS: MELATONIN 5 MG TABLET PO (23:15)
[2022-08-28] VITALS (7 sets, daily range): BP systolic 103–127; BP diastolic 62–83; PULSE 53–92; RESP 18–20; TEMP 36.7–36.8; O2SAT 97–98
[2022-08-28 05:26] LABS: Anion Gap 6 mmol/L (8-16); Blood Urea Nitrogen 27 mg/dL (9-20); Calcium 7.8 mg/dL (8.4-10.2); Carbon Dioxide 32 mmol/L (22-30); Chloride 97 mmol/L (98-107); Estimated CRCL calculation 87 ml/min; Estimated Glomerular Filt Rate > 60; Glucose 86 mg/dL (65-110); Potassium 3.8 mmol/L (3.4-5.0); Sodium 135 mmol/L (137-145)
[2022-08-28 05:33] LABS: Basophils Percent Auto 0.3 % (0.2-1.2); Hemoglobin 13.3 g/dL (14.0-18.0); Immature Granulocyte Absolute 0.17 K/mm3 (0.00-0.031); Immature Granulocyte Percent A 1.3 % (0-0.5); Lymphocytes Absolute Auto 2.32 K/mm3 (0.9-3.2); Lymphocytes Percent Auto 17.8 % (18.3-44.2); Mean Corpuscular Hemoglobin 30.3 pg (26-34); Mean Corpuscular Volume 86.6 fl (80-100); Mean Platelet Volume 10.2 fl (7.4-10.4); Monocytes Absolute Auto 1.6 K/mm3 (0.1-0.6); Monocytes Percent Auto 12.6 % (2.6-8.5); Neutrophils Absolute Auto 8.8 K/mm3 (1.3-6.7); Platelet Count Result 269 k/mm3 (150-375); Red Blood Count 4.39 M/mm3 (4.6-6.20)
[2022-08-28 07:56] LABS: Glucose Point of Care 92 mg/dl (65-105)
[2022-08-28] MEDS: ENOXAPARIN 40 MG/0.4 ML SYRINGE SUB-Q (09:30)
[2022-08-28] MEDS: polyethylene glycoL 3350 17 GM POWD.PACK PO (09:30)
[2022-08-28] MEDS: PANTOPRAZOLE 40 MG TABLET PO (09:30)
[2022-08-28 12:28] LABS: Glucose Point of Care 98 mg/dl (65-105)
--- NOTE | 2022-08-28 14:21 | PCNWS ---
Weekly nutritional screen. Patient is tolerating current diet with adequate intake at 80%. Per aid says pt has a great appetite and eats everything on his plate. No weight loss reported. Wt was retaken 08/28: 171lbs. No nutritional needs at this time.
--- NOTE | 2022-08-28 17:36 | PM.IMPN ---
Progress Note: A&P Assessment and Plan (1) Acute transverse myelitis: Code(s): G37.3 - Acute transverse myelitis in demyelinating disease of central nervous system Status: Acute Assessment and Plan: Thoracic MR showing increased signal intensity in the spinal cord from T1 to T9. Differential diagnosis includes viral myelitis, transverse myelitis, MS or acute disseminated encephalomyelitis. Most likely this is transverse myelitis or viral myelitis. This explains the CSF findings of elevated white count, predominantly lymphocytes and elevated protein levels. CSF culture NGTD. CSF HSV, EBV, CMV, Enterovirus and VZV negative. WBC elevated due to steroids but higher now for unclear reasons. Neurology following and appreciate their input. Patient completed 5 days of high-dose Solu-Medrol (last dose 08/27 at 2AM). He did not want plasmapheresis. Some improvement noted overall. Continue PT and OT. Care coordination working on placement at [facility] (2) Ileus: Code(s): K56.7 - Ileus, unspecified Status: Acute Assessment and Plan: Patient's abdomen distention has resolved. KUB shows normal bowel gas pattern now. Continue MiraLax. Minimize narcotics. Regular diet (3) COVID: Code(s): U07.1 - COVID-19 Status: Acute Assessment and Plan: Patient tested positive for COVID on 08/19/22. Initially did not have an oxygen requirement but required up to 2 L so steroids and Baricitinib started. Stopped Baricitinib since clinically better and not on O2. Continue COVID precautions. Stopped Decadron since lungs are clear and no O2 requirement. (4) Tobacco abuse: Code(s): Z72.0 - Tobacco use Status: Acute Assessment and Plan: Patient has been educated about the benefits of smoking cessation. Plan DVT prophylaxis: Lovenox Code status: Full Subjective Date/time seen: 08/28/22 17:36 Interval history: 61yo male with tobacco abuse here for LE weakness. Patient feeling a little frustrated today as he still continues to have weakness and numbness in bilateral lower extremities. His continue to work with physical therapy and is planned to go to rehab in a.m.. Review of Systems Review of Systems: All systems reviewed & are unremarkable except as noted in HPI and below Exam Narrative: Gen - NARD sitting on the chair Chest - CTA bilaterally, nml RR CV - RRR S1/S2. telemetry showing no significant dysrhythmias Abd - soft. ND/NT. +BS -Spann catheter secured draining clear yellow urine. Ext - No pedal edema Neuro - alert and appropriate. Speech is clear. Normal upper extremity strength. LE strength about the same Psych - Normal mood and affect Skin - Warm and dry Objective Data Vital Signs Vital Signs: Vital Signs - 24 hr 08/27/22 23:40 08/27/22 20:00 08/28/22 00:00 Temperature 98.0 F Pulse Rate 78 82 92 Respiratory Rate 18 Blood Pressure 126/78 Pulse Oximetry 96 Oxygen Delivery 08/28/22 04:00 08/28/22 08:00 08/28/22 08:00 Temperature 98.1 F Pulse Rate 53 L 82 69 Respiratory Rate 20 Blood Pressure 125/83 Pulse Oximetry 98 Oxygen Delivery 08/28/22 08:00 08/28/22 12:00 08/28/22 16:42 Temperature 98.0 F Pulse Rate 70 74 Respiratory Rate 20 Blood Pressure 103/62 Pulse Oximetry 97 Oxygen Delivery Room Air Intake/Output Intake/Output: Intake & Output 08/25/22 08/26/22 08/27/22 08/28/22 23:59 23:59 23:59 23:59 Intake Total 3926 1616 1128 720 Output Total 1500 1200 3100 1750 Balance 1048 247 -9314 -4223 Meds/Results Medications: Active Medications Generic Name Dose Route Start Last Admin Trade Name Freq PRN Reason Stop Dose Admin Acetaminophen 650 mg 08/25/22 14:59 Acetaminophen 325 Mg Tablet PO Q6H PRN Pain Rated 5 or Less Hydrocodone Bitart/Acetaminophen 1 tab 08/25/22 14:59 Hydrocodone/Acetaminophen (*Crx) 5-325 Mg Tablet PO
[2022-08-29] VITALS: BP 122/83; PULSE 75; RESP 18; TEMP 36.5; O2SAT 99
--- NOTE | 2022-08-29 00:10 | PC.NURSE ---
Pt arrived to the unit by bed. Pt is very optimistic and motivated to regain strength. Pt is hopeful that therapy will be successful. Pt has kothari, which is patent. Pt's vitals are stable. Will continue to monitor pt.
[2022-08-29 05:52] LABS: Basophils Percent Auto 0.4 % (0.2-1.2); Eosinophils Absolute Auto 0.2 K/mm3 (0-0.3); Eosinophils Percent Auto 1.4 % (0-4.4); Hematocrit 44.3 % (42.0-52.0); Immature Granulocyte Absolute 0.21 K/mm3 (0.00-0.031); Immature Granulocyte Percent A 1.9 % (0-0.5); Lymphocytes Absolute Auto 2.47 K/mm3 (0.9-3.2); Lymphocytes Percent Auto 22.4 % (18.3-44.2); Mean Corpuscular HGB Conc 33.9 g/dl (32-36); Mean Corpuscular Hemoglobin 30.2 pg (26-34); Mean Corpuscular Volume 89.1 fl (80-100); Mean Platelet Volume 9.7 fl (7.4-10.4); Monocytes Absolute Auto 1.2 K/mm3 (0.1-0.6); Monocytes Percent Auto 10.5 % (2.6-8.5); Neutrophils Percent Auto 63.4 % (45.5-73.1); Platelet Count Result 295 k/mm3 (150-375); Red Blood Count 4.97 M/mm3 (4.6-6.20); Red Cell Distribution Width 13.6 % (11.5-14.5)
[2022-08-29 06:09] LABS: Alanine Aminotransferase 34 U/L (6-50); Albumin Level 3.7 g/dL (3.5-5.1); Alkaline Phosphatase 73 U/L (38-126); Anion Gap 5 mmol/L (8-16); Aspartate Amino Transferase 24 U/L (17-59); Bilirubin,Total 0.4 mg/dL (0.2-1.3); Blood Urea Nitrogen 23 mg/dL (9-20); Calcium 8.5 mg/dL (8.4-10.2); Carbon Dioxide 33 mmol/L (22-30); Chloride 96 mmol/L (98-107); Estimated CRCL calculation 87 ml/min; Estimated Glomerular Filt Rate > 60; Glucose 85 mg/dL (65-110); Magnesium 2.5 mg/dL (1.6-2.3); Sodium 134 mmol/L (137-145)
[2022-08-29 06:50] VITALS: BP 117/83; PULSE 66; RESP 18; TEMP 36.5; O2SAT 97
[2022-08-29] MEDS: PANTOPRAZOLE 40 MG TABLET PO (08:10)
[2022-08-29] MEDS: polyethylene glycoL 3350 17 GM POWD.PACK PO (08:10)
[2022-08-29] MEDS: ENOXAPARIN 40 MG/0.4 ML SYRINGE SUB-Q (08:10)
--- NOTE | 2022-08-29 11:45 | PM.DS ---
DS: Admitting Diagnosis Discharge Date 08/29/2022 Admitting Diagnosis Lower extremity weakness DS: Discharge Diagnosis Discharge Diagnosis (1) Acute transverse myelitis: Code(s): G37.3 - Acute transverse myelitis in demyelinating disease of central nervous system Status: Acute (2) Ileus: Code(s): K56.7 - Ileus, unspecified Status: Acute (3) COVID: Code(s): U07.1 - COVID-19 Status: Acute (4) Tobacco abuse: Code(s): Z72.0 - Tobacco use Status: Acute DS: Summary Hospital Course Hospital Course: # acute transverse myelitis: Thoracic MR showing increased signal intensity in the spinal cord from T1 to T9.? Differential diagnosis includes viral myelitis, transverse myelitis, MS or acute disseminated encephalomyelitis.? Most likely this is transverse myelitis or viral myelitis.? This explains the CSF findings of elevated white count, predominantly lymphocytes and elevated protein levels. CSF culture NGTD. CSF HSV, EBV, CMV, Enterovirus and VZV negative. WBC elevated due to steroids but higher now for unclear reasons. Neurology following and appreciate their input. Patient completed 5 days of high-dose Solu-Medrol (last dose 08/27 at 2AM). He did not want plasmapheresis. Some improvement noted overall. Continue PT and OT.? Care coordination working on placement at [facility] were he was accepted and is planned to be discharged there today to continue with therapy. # ileus: Patient's abdomen distention has resolved. KUB shows normal bowel gas pattern now. Continue MiraLax.? Minimize narcotics which he has not been taking. Regular diet # COVID-19: Patient tested positive for COVID on 08/19/22.? Initially did not have an oxygen requirement but required up to 2 L so steroids and Baricitinib started. Stopped Baricitinib since clinically better and not on O2. Continue COVID precautions.? Stopped? Decadron since lungs are clear and no O2 requirement. # tobacco abuse: Patient has been educated about the benefits of smoking cessation.? # DVT prophylaxis: Lovenox # Code status: [employer] Anchor Spent with Patient Time attestation: Total time spent providing and/or coordinating discharge services: 45 minutes Exam Narrative: Gen - NARD sitting on the chair Chest - CTA bilaterally, nml RR CV - RRR S1/S2. telemetry showing no significant dysrhythmias Abd - soft. ND/NT. +BS -Spann catheter secured draining clear yellow urine. Ext - No pedal edema Neuro - alert and appropriate. Speech is clear. Normal upper extremity strength. LE strength about the same Psych - Normal mood and affect Skin - Warm and dry DS: Data Data Completed and Pending Labs on day of discharge: Labs from last 24 hours 08/29/22 08/29/22 08/28/22 05:30 05:30 12:25 WBC 11.0 H RBC 4.97 Hgb 15.0 Hct 44.3 MCV 89.1 MCH 30.2 MCHC 33.9 RDW 13.6 Plt Count 295 MPV 9.7 Immature Gran % (Auto) 1.9 H Neut % (Auto) 63.4 Lymph % (Auto) 22.4 [place] % (Auto) 10.5 H Eos % (Auto) 1.4 Baso % (Auto) 0.4 Lymph # (Auto) 2.47 [place] # (Auto) 1.2 H Eos # (Auto) 0.2 Baso # (Auto) 0.0 Abs Immat Gran (auto) 0.21 H Absolute Neuts (auto) 7.0 H Absolute Nucleated RBC 0.0 Nucleated RBC % 0.0 Sodium 134 L Potassium 4.0 Chloride 96 L Carbon Dioxide 33 H Anion Gap 5 L BUN 23 H Creatinine 0.80 Estim Creat Clear Calc 87 Estimated GFR > 60 Glucose 85 POC Capillary Glucose 98 Calcium 8.5 Magnesium 2.5 H Total Bilirubin 0.4 AST 24 ALT 34 Alkaline Phosphatase 73 Total Protein 7.0 Albumin 3.7 Imaging Radiologist's impression: ITS Impressions Cervical Spine CT 08/21/22 14:57 IMPRESSION: 1. Moderate to severe cervical spondylosis. No acute osseous abnormality. 2. Mild emphysema. Thoracic/Lumbar Spine CT 08/21/22 15:11 IMPRESSION: 1. No acute fracture. Lumbar Pun
[2022-08-29 16:00] VITALS: BP 112/73; PULSE 90; RESP 18; TEMP 36.6; O2SAT 97
[2022-08-30 14:47] LABS: Reference Lab Test Result Negative
[2022-09-02 14:29] LABS: Reference Lab Test Result Negative
--- NOTE | 2022-09-10 16:26 | PCCCNOTE ---
Addendum entered by DIOGENES Cunningham 09/10/22 16:39: This career technical education teacher found the ambulance form in pt's EChart - document is named Transfer Information. Called Sharri back at [phone] to notify her that the form was completed by pt's RN, and it was scanned into pt's electronic chart. Original Note: Recvd a phone call from pt. pt's spouse Sharri who report multiple concerns. Sharri states that she would like a copy of pt's medical record; CC provided her with medical records extension [phone]. Sharri reports medication prescriptions were sent to pt's pharmacy and the pharmacy is calling pt. and Sharri, stating the medications are ready for hand picker. Pt. and Sharri have requested the pharmacy cancel the scripts, but [facility] pharmacy tells them that only the doctor can cancel the scripts. Voicemail left with Hospitalist RN Esther [phone] to request assistance with cancelling these scripts. Sharri requests confirmation that the ambulance form was completed and turned into pt's insurance company. Explained to Sharri that this process is done by nursing and then the form is provided to the ambulance company.
== END 2022-08-29 17:45 | DRG 97 ==
LOC: ANHED 16:27 → ANHICU 17:29 → ANHIMU 08-24 15:39 → ANH3MEDSUR 08-28 22:56
PROVIDERS: Internal Medicine; Nurse Practitioner; Student in an Organized Health Care Education/Training Program; Admitting Provider Family Medicine; Emergency Provider Nurse Practitioner Family; PCP Family Medicine; Visit Provider Internal Medicine
DX: G37.3 Acute transverse myelitis in demyelinating disease of central nervous system (principal); U07.1 COVID-19; K56.7 Ileus, unspecified; M47.812 Spondylosis without myelopathy or radiculopathy, cervical region; F17.210 Nicotine dependence, cigarettes, uncomplicated; M54.50 Low back pain, unspecified; M25.551 Pain in right hip; G89.29 Other chronic pain; Z90.49 Acquired absence of other specified parts of digestive tract; Z28.310 Unvaccinated for COVID-19
CPT/HCPCS: 36415; 62328; 70553; 72125; 72128; 72131; 72156; 72157; 72158; 74019; 80048; 80053; 80069; 81001; 82550; 82565; 82607; 82728; 82746; 82784; 82945; 82948; 83605; 83735; 84100; 84157; 84443; 84450; 84460; 85025; 85610; 85652; 85730; 86052; 86140; 86362; 87070; 87497; 87498; 87502; 87529; 87798; 89051; 92960; 96374; 97110; 97112; 97163; 97167; 97530; 97535; 99284; 99285; A9270; A9577; C9113; C9803; J0360; J1100; J1170; J1650; J1885; J2405; J2765; J2930; J7030; J7042; U0003; U0005

== ENCOUNTER 2022-09-15 13:48 | Inpatient (IN) | payer MEDICARE, SELFPAY ==
--- NOTE | ~2022-09-15 | CT_ITS ---
EXAMINATION: CT lumbar spine wo con DATE: 09/15/2022 15:20 INDICATION: Low back pain TECHNIQUE: Computed tomography (CT) of the lumbar spine was performed without intravenous contrast. T he dose-length product (DLP) was 530.16 mGy-cm. Iterative reconstruction was used. COMPARISON: 08/21/2022 FINDINGS: Bone alignment is normal. There is no fracture. There is severe loss of intervertebral disc space height at L3-4 and L4-5 and moderate loss of disc space height at L2-3. The vertebral body hei ghts are maintained. Small degenerative osteophytes project from the anterior endplates of multiple v ertebral bodies. There is moderate neuroforaminal stenosis on the right at L4-5. IMPRESSION: 1. Severe lumbar spondylosis without acute findings. Reviewed, dictated and finalized at location F.
--- NOTE | ~2022-09-15 | CT_ITS ---
EXAMINATION: CT abdomen pelvis w con INDICATION: Abdominal and low back pain TECHNIQUE: Computed tomographic images of the abdomen and pelvis were obtained after the administrati on of 100 cc of Omnipaque 350 intravenous contrast. The dose-length product (DLP) was 319.16 mGy-cm. Automated exposure control and iterative reconstruction technique were employed. COMPARISON: 10/24/2009 FINDINGS: Minimal dependent atelectasis is present in the lung bases. The heart size is normal. Cysts of the liver measure up to 11 mm in the left hepatic lobe. The spleen, pancreas, gallbladder, and ad renal glands are normal. Cysts of the kidneys measure up to 8 mm on the left. There is diffuse wall t hickening of the urinary bladder. A Spann catheter is in the bladder. No pathologically enlarged abdo stella or pelvic lymph nodes are identified. There is calcified atherosclerosis of the aorta and many of the other arteries. There is no free intraperitoneal gas or evidence of bowel obstruction. There i s moderate lumbar spondylosis. IMPRESSION: 1. Diffuse wall thickening of the urinary bladder, likely reflecting cystitis. Reviewed, dictated and finalized at location F.
--- NOTE | ~2022-09-15 | MR_ITS ---
EXAMINATION: MR cervical spine wo/w con DATE: 09/16/2022 15:34 INDICATION: Transverse myelitis. Worsening weakness. TECHNIQUE: Magnetic resonance imaging (MRI) of the cervical spine was performed without and with 13 m L MultiHance intravenous contrast. COMPARISON: cervical spine MRI 08/22/22 FINDINGS: There is hypolordosis of cervical spine. There is 2 mm retrolisthesis of C5 on C6. Vertebra l body heights are normal. There is mildly decreased disc height at C4-C5 and severely decreased disc height at C5-C6 and C6-C7. There are patchy areas of ill-defined increased T2-weighted signal intens ity in the cervical spinal cord. The following disc levels are specifically discussed: C2-C3: The disc does not extend beyond the endplate margin. There is no uncovertebral joint osteoarth ritis. There is mild right and moderate left facet joint osteoarthritis. There is no neural foraminal stenosis. There is no central canal stenosis. C3-C4: There is a central extrusion. There is mild bilateral uncovertebral joint osteoarthritis. Ther e is moderate bilateral facet joint osteoarthritis. There is mild bilateral neural foraminal stenosis . There is mild central canal stenosis. C4-C5: The disc is bulging. There is moderate bilateral uncovertebral joint osteoarthritis. There is no facet joint osteoarthritis. There is mild bilateral neural foraminal stenosis. There is mild centr al canal stenosis with ventral indentation of the spinal cord. C5-C6: The disc is bulging. There is severe bilateral uncovertebral joint osteoarthritis. There is no facet joint osteoarthritis. There is moderate bilateral neural foraminal stenosis. There is mild karen tral canal stenosis with ventral indentation of the spinal cord. C6-C7: The disc is bulging. There is severe bilateral uncovertebral joint osteoarthritis. There is se marco bilateral facet joint osteoarthritis. There is moderate bilateral neural foraminal stenosis. The re is mild central canal stenosis. C7-T1: The disc does not extend beyond the endplate margin. There is no uncovertebral joint osteoarth ritis. There is severe bilateral facet joint osteoarthritis. There is mild bilateral neural foraminal stenosis. There is no central canal stenosis. IMPRESSION: 1. Patchy areas of ill-defined increased T2-weighted signal intensity in the cervical spinal cord, wo rsened from 08/22/2022. The differential diagnosis includes viral myelitis, transverse myelitis, and a cute disseminated encephalomyelitis. 2. Severe cervical spondylosis. Reviewed, dictated and finalized at location A. IMPRESSION: 1. Patchy areas of ill-defined increased T2-weighted signal intensity in the ce rvical spinal cord, worsened from 08/22/2022. The differential diagnosis include s viral myelitis, transverse myelitis, and acute disseminated encephalomyelitis . 2. Severe cervical spondylosis.
--- NOTE | ~2022-09-15 | MR_ITS ---
EXAMINATION: MR thoracic spine wo/w con DATE: 09/16/2022 15:34 INDICATION: Transverse myelitis. Worsening weakness. TECHNIQUE: Magnetic resonance imaging (MRI) of the thoracic spine was performed without and with 13 m L MultiHance intravenous contrast. COMPARISON: Thoracic spine MRI 08/22/2022 FINDINGS: There is 5 degrees levocurvature of thoracic spine. Vertebral body heights are normal. Ther e is mildly decreased disc height at T6-T7 and T7-T8. At T3-T4, there is a right central protrusion w ith mild central canal stenosis. At T6-T7, there is a left central protrusion with mild central canal stenosis. The facet joints are unremarkable. On the right, there is mild neural foramin al stenosis at T3-T4. The spinal cord signal intensity is normal. IMPRESSION: 1. Normal spinal cord. 2. Stable mild thoracic spondylosis. Reviewed, dictated and finalized at location A.
--- NOTE | ~2022-09-15 | MR_ITS ---
EXAMINATION: MR lumbar spine wo/w con DATE: 09/16/2022 15:35 INDICATION: Transverse myelitis. Weakness. TECHNIQUE: Magnetic resonance imaging (MRI) of the lumbar spine was performed without and with 13 mL MultiHance intravenous contrast. COMPARISON: Lumbar spine MRI 08/22/2022 FINDINGS: Bone alignment is normal. Vertebral body heights are normal. There is moderately decreased disc height at L2-L3, severely decreased disc height at L3-L4 and L4-L5, and mildly decreased disc he ight at L5-S1. The distal spinal cord signal intensity is normal. The conus medullaris is at L1. The following disc levels are specifically discussed: L1-L2: The disc does not extend beyond the endplate margin. There is no facet joint osteoarthritis. T here is no neural foraminal stenosis. There is no central canal stenosis. L2-L3: The disc is bulging. There is mild bilateral facet joint osteoarthritis. There is mild bilater al neural foraminal stenosis. There is no central canal stenosis. L3-L4: The disc is bulging and has an annular fissure. There is mild lateral facet joint osteoarthrit is. There is mild bilateral neural foraminal stenosis. There is mild central canal stenosis. L4-L5: The disc is bulging and has an annular fissure. There is moderate right and mild left facet valentino int osteoarthritis. There is moderate right and mild left neural foraminal stenosis. There is no cent ral canal stenosis. L5-S1: The disc is bulging and has an annular fissure. There is moderate bilateral facet joint osteoa rthritis. There is mild bilateral neural foraminal stenosis. There is mild central canal stenosis. IMPRESSION: 1. Stable severe lumbar spondylosis. Reviewed, dictated and finalized at location A.
[2022-09-15 13:50] VITALS: BP 127/74; PULSE 132; RESP 18; TEMP 37; O2SAT 98
--- NOTE | 2022-09-15 14:31 | ED.BACK ---
HPI - Back Pain/Injury General Chief Complaint: Back Pain/Injury Stated Complaint: WEAKNESS Time Seen by Provider: 09/15/22 13:53 Source: patient, EMS and RN notes reviewed Mode of arrival: EMS Limitations: no limitations History of Present Illness HPI Narrative: Patient is 61 years old white male with history of transverse myelitis secondary to COVID infection referred to the emergency room from [facility] because of fever up to 102.4, chills, nausea, tachycardia, labored breathing started this morning. Patient had chronic Spann catheter removed yesterday, patient was able to urinate numerous of time after that, does not have any urination since this morning. Patient reports falling backward on the bed against a wooden bar yesterda laying down flat from a sitting position. He reports that his pain at the lower back and weakness of the lower extremities are getting worse. Patient is wheelchair-bound. Patient was started on gabapentin recently and keeps blaming the gabapentin on his symptoms patient went to [facility] August 29, 2020 Related Data Home Medications Medication Instructions Recorded Confirmed No Home Medications 09/06/22 09/06/22 Allergies Allergy/AdvReac Type Severity Reaction Status Date / Time No Known Allergies Allergy Verified 09/15/22 14:06 Review of Systems Review of Systems: All systems reviewed & are unremarkable except as noted in HPI and below PMFSH Past Medical History Medical History Chronic back pain Chronic hip pain Tobacco abuse Surgical History Surgical History H/O hand surgery Left pointer finger History of appendectomy Family History Family History Grandparent Hypertension Family history of elevated blood lipids Family history of coronary artery disease Diabetes mellitus Sibling Cancer Sibling COPD (chronic obstructive pulmonary disease) Mother Sepsis Social History Social History Social History: 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 Patient continues to smoke at least a pack a cigarettes a day. He drinks of 5th of [place]raz[place] a week. He does use marijuana. He is and lives with his . He has 3 children. 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 Smoking packs per day: 1 Smoking cigarettes per day: 20.0 Years smoked: 42 Smoking pack-years: 42.00 Smoking status: Current every day smoker Tobacco type: cigarettes Second hand tobacco smoke exposure: No Smoking end date: 08/21/22 Alcohol intake: current Drinks per week: 14 Substance use: current Substance use type: marijuana Spiritual care concerns: No Exam Narrative: General appearance: Well-developed, well-nourished, restless, anxious Skin: Normal color Head: Normocephalic, nontraumatic Eyes: Clear conjunctiva ENT: Oropharynx normal, ears normal, nose normal Neck: Supple, nontender Chest and respiratory: Airway patent, no respiratory distress, no accessory muscle use Heart: Regular rate/rhythm Abdomen: Soft, diffuse lower abdominal tenderness and distention, no organomegaly, quiet bowel sounds, rectal exam showed normal anal tone decreased sensation at the perineum Vascular: Normal peripheral pulses, normal capillary refill. Musculoskeletal: Pain across lumbar and thoracic area, no bruises, no swelling or rash Neurologic: Alert and oriented ?3, diminished reflexes of the lower extremities, 1 out of 5 sensory function, 0 out of 5 motor function bilaterally
[2022-09-15] MEDS: SODIUM CHLORIDE 0.9% IV 1,000 ML 999 ML IV CONT (15:17)
[2022-09-15] MEDS: LORazepam INJ (*CRX) 2 MG/ML VIAL 1 MG IV PUSH (15:18)
[2022-09-15 15:19] LABS: Basophils Percent Auto 0.2 % (0.2-1.2); Eosinophils Absolute Auto 2.2 K/mm3 (0-0.3); Eosinophils Percent Auto 10.3 % (0-4.4); Hematocrit 38.5 % (42.0-52.0); Hemoglobin 13.7 g/dL (14.0-18.0); Immature Granulocyte Absolute 0.15 K/mm3 (0.00-0.031); Immature Granulocyte Percent A 0.7 % (0-0.5); Lymphocytes Absolute Auto 0.96 K/mm3 (0.9-3.2); Lymphocytes Percent Auto 4.6 % (18.3-44.2); Mean Corpuscular HGB Conc 35.6 g/dl (32-36); Mean Corpuscular Hemoglobin 30.7 pg (26-34); Mean Corpuscular Volume 86.3 fl (80-100); Mean Platelet Volume 8.8 fl (7.4-10.4); Monocytes Absolute Auto 2.2 K/mm3 (0.1-0.6); Monocytes Percent Auto 10.7 % (2.6-8.5); Neutrophils Absolute Auto 15.3 K/mm3 (1.3-6.7); Neutrophils Percent Auto 73.5 % (45.5-73.1); Platelet Count Result 289 k/mm3 (150-375); Red Blood Count 4.46 M/mm3 (4.6-6.20); Red Cell Distribution Width 13.2 % (11.5-14.5); White Blood Count 20.8 K/mm3 (4.5-10.0)
[2022-09-15] MEDS: ONDANSETRON INJ 4 MG/2 ML VIAL IV PUSH (15:19)
[2022-09-15] MEDS: HYDROmorphone HCL INJ (*CRX) 1 MG/ML SYR 0.5 MG IV PUSH (15:19)
[2022-09-15 15:28] LABS: Alanine Aminotransferase 40 U/L (6-50); Albumin Level 4.3 g/dL (3.5-5.1); Alkaline Phosphatase 117 U/L (38-126); Anion Gap 17 mmol/L (8-16); Aspartate Amino Transferase 31 U/L (17-59); Bilirubin,Total 0.6 mg/dL (0.2-1.3); Blood Urea Nitrogen 19 mg/dL (9-20); Calcium 9.4 mg/dL (8.4-10.2); Carbon Dioxide 22 mmol/L (22-30); Chloride 94 mmol/L (98-107); Estimated CRCL calculation 85 ml/min; Estimated Glomerular Filt Rate > 60; Glucose 131 mg/dL (65-110); Potassium 3.6 mmol/L (3.4-5.0); Sodium 133 mmol/L (137-145)
[2022-09-15 15:47] LABS: Add Urine Microscopic? YES; Amorphous Sediment Urine Few; Appearance Urine Cloudy (Clear); Bacteria Urine Trace /hpf; Bilirubin Urine Negative (Negative); Blood Urine 2+ (Negative); Color Urine Yellow (Yellow); Glucose Urine UA Negative (Negative); Ketones Urine Negative (Negative); Leukocyte Esterase Ur 3+ LEU/UL (Negative); Mucus Urine Rare /lpf; Nitrate Urine Positive (Negative); Protein Urine Negative (Negative); Specific Grav Ur 1.012 (1.001-1.035); Urobilinogen Urine Negative mg/dL (<2.0); WBC Urine >75 /hpf
[2022-09-15 16:34] VITALS: BP 129/65; PULSE 110; RESP 18; O2SAT 97
--- NOTE | 2022-09-15 17:15 | PM.IMHP ---
H&P: HPI History of Present Illness Date/Time: 09/15/22 17:15 Chief Complaint: Fever. Narrative: This is a 61-year-old male smoker who presented to the emergency department via EMS from [facility] for evaluation of of fever. He is known to the hospitalist service with a recent admission last month at which time he was admitted with lower extremity weakness. LP and MRI findings were suspicious for transverse or viral myelitis related to recent COVID infection and he was treated with 5 days of high-dose Solu-Medrol; he declined plasmapheresis. He has been at rehab since his discharge on August 29 and he has been doing quite well (still unable to walk but is able to transfer with slide board) and in fact he is supposed to be discharged home tomorrow. 24 hours ago he had his Spann catheter removed and according to the patient he has been urinating 300 mL of urine at a time. This morning however he had difficulties urinating and he reports that he was feeling extremely weak with nausea, decreased appetite, and shakes. He attributes these symptoms to the fact that he was recently started on gabapentin and had the dose increased in the last day or so however he was found to have a temperature of over 102? Fahrenheit and he was sent in today for evaluation. On arrival to the ER he complained of increasing low back pain however that has been present for couple of days after he was accidentally dropped on a wooden block at rehab. CT of the lumbar spine showed severe lumbar spondylosis without acute findings. His bladder looked markedly distended on CT however and a Spann catheter was reinserted which yielded nearly 1500 mL of urine almost immediately. CT of the abdomen and pelvis showed diffuse wall thickening of the urinary bladder and his urine was nitrate and leukocyte esterase positive with greater than 75 WBCs and trace bacteria. He has since been started on antibiotics and admitted to the floor for further care. At the time my evaluation he is feeling much better since his bladder has drained and he is not having any back pain at this time. He denies headache, sinus congestion, sore throat, vomiting, and diarrhea. Review of Systems Review of Systems: 12 systems were reviewed. He continues to have no movement or sensation from the waist down. He suffers from chronic back pain related to severe spondylosis and degenerative disc disease and he reports that that was worse after he was dropped on a wooden block at rehab. No chest pain or shortness of breath. He does have some sneezing and procedure manager coughs which he attributes to allergy and a smoker's cough. He has not smoked over the last month that he has been in the hospital and rehab. He reports being on a good bowel regimen and he has 3 to 4 loose stools. He remains unable to tell when he has to urinate or move his bowels, however. Except as documented, all other systems were reviewed and are negative. [facility] Past Medical History Medical History (Updated 09/15/22 @ 22:14 by Una Mccauley PA-C) Chronic back pain Chronic hip pain COVID (07/2022) Tobacco abuse Surgical History Surgical History (Updated 09/15/22 @ 22:05 by Una Mccauley PA-C) History of appendectomy History of hand surgery Left index finger surgery. 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 He has smoked a pack of cigarettes a day for 40 years but is not smoked since his recent hospitalization in July 2022. He drinks a 5th of [employer] in
[2022-09-15 18:13] VITALS: BP 106/65; PULSE 76; RESP 18; O2SAT 97
[2022-09-15 18:55] VITALS: BP 112/89; PULSE 112; RESP 20; TEMP 37.2; O2SAT 96
--- NOTE | 2022-09-15 18:59 | ADMGEN ---
This patient, Binu Justin, was admitted to Medical Room 245-. Patient/family oriented to hospital policies and general routines including ID bracelet, bed and alarms, visiting hours, pain management, procedures, bathroom and other care routines, personal items, smoking policy, room service/diet, and visiting hours. Information on how to activate the Rapid Response Team has been discussed. Patient/Family are encouraged to report perceived risks to care and to ask questions if they do not understand what they are told or what they should do.
[2022-09-15 20:25] VITALS: BP 94/74; PULSE 106; RESP 18; TEMP 37.2; O2SAT 96
[2022-09-15 23:00] LABS: Lactic Acid Reflex 1.5 mmol/L (0.7-2.0)
[2022-09-15 23:10] LABS: Anion Gap 11 mmol/L (8-16); Blood Urea Nitrogen 14 mg/dL (9-20); Calcium 9.3 mg/dL (8.4-10.2); Carbon Dioxide 26 mmol/L (22-30); Chloride 97 mmol/L (98-107); Estimated CRCL calculation 85 ml/min; Estimated Glomerular Filt Rate > 60; Glucose 149 mg/dL (65-110); Magnesium 1.9 mg/dL (1.6-2.3); Potassium 4.1 mmol/L (3.4-5.0); Sodium 134 mmol/L (137-145)
[2022-09-15 23:12] LABS: Erythrocyte Sedimentation Rate 29 mm/hr (0-20)
[2022-09-15 23:14] LABS: CRP 16.7 mg/dL (<1.0)
[2022-09-16] MEDS: MELATONIN 3 MG TABLET PO ×2 (00:43→21:02)
[2022-09-16] MEDS: SODIUM CHLORIDE 0.9% IV 1,000 ML 75 ML IV CONT (00:43)
[2022-09-16 03:46] VITALS: BP 100/58; PULSE 86; RESP 16; TEMP 36.6; O2SAT 94
[2022-09-16 05:59] LABS: Basophils Percent Auto 0.2 % (0.2-1.2); Eosinophils Absolute Auto 0.1 K/mm3 (0-0.3); Eosinophils Percent Auto 0.3 % (0-4.4); Hematocrit 36.4 % (42.0-52.0); Hemoglobin 12.2 g/dL (14.0-18.0); Immature Granulocyte Absolute 0.17 K/mm3 (0.00-0.031); Immature Granulocyte Percent A 0.9 % (0-0.5); Lymphocytes Percent Auto 8.6 % (18.3-44.2); Mean Corpuscular HGB Conc 33.5 g/dl (32-36); Mean Corpuscular Hemoglobin 29.8 pg (26-34); Mean Corpuscular Volume 88.8 fl (80-100); Mean Platelet Volume 9.1 fl (7.4-10.4); Monocytes Absolute Auto 2.3 K/mm3 (0.1-0.6); Monocytes Percent Auto 12.2 % (2.6-8.5); Neutrophils Absolute Auto 14.6 K/mm3 (1.3-6.7); Neutrophils Percent Auto 77.8 % (45.5-73.1); Platelet Count Result 293 k/mm3 (150-375); Red Cell Distribution Width 13.6 % (11.5-14.5); White Blood Count 18.7 K/mm3 (4.5-10.0)
[2022-09-16 06:08] LABS: Anion Gap 7 mmol/L (8-16); Blood Urea Nitrogen 15 mg/dL (9-20); Carbon Dioxide 29 mmol/L (22-30); Chloride 100 mmol/L (98-107); Estimated CRCL calculation 81 ml/min; Estimated Glomerular Filt Rate > 60; Glucose 114 mg/dL (65-110); Potassium 4.2 mmol/L (3.4-5.0); Sodium 136 mmol/L (137-145)
--- NOTE | 2022-09-16 07:41 | PM.IMPN ---
Progress Note: A&P Assessment and Plan (1) Sepsis: Code(s): A41.9 - Sepsis, unspecified organism Status: Acute Assessment and Plan: CT of the lumbar spine and abdomen showed severe lumbar spondylosis and bladder wall thickening. UCX growing pseudomonas. BP soft. Leukocytosis downtrending. -Discontinue ceftriaxone -Cefepime 2g q8h (2) Acute urinary tract infection: Code(s): N39.0 - Urinary tract infection, site not specified Status: Acute Assessment and Plan: UCX growing pseudomonas. Change antibiotics to cefepime. (3) Acute urinary retention: Code(s): R33.8 - Other retention of urine Status: Acute Assessment and Plan: Continue kothari. (4) Transverse myelitis: Code(s): G37.3 - Acute transverse myelitis in demyelinating disease of central nervous system Status: Acute Assessment and Plan: New worsening of weakness. MRI from previous hospitalization on 08/22/22 showed Thoracic MR showing increased signal intensity in the spinal cord from T1 to T9. MRI + LP were consistent with transverse myelitis assumed to be due to COVID19 as other studies remained negative throughout the hospitalization. Neurology consulted. -Appreciate recommendations from Neurology -Continue physical and occupational therapy Subjective Date/time seen: 09/16/22 07:41 Patient says gabapentin caused extreme weakness and numbness to where he was unable to urinate. Denies fevers or chills. Says he feels like some of his strength is returning now that he gabapentin has been stopped. Review of Systems Constitutional: Constitutional: Denies chills and Reports weakness Genitourinary: Genitourinary: Reports other Comments: Urinary retention Exam Narrative: GENERAL: NAD, cooperative HEENT: Normocephalic, atraumatic, anicteric, poor dentition NECK: Supple CV: Normal S1, S2, RRR, No MRG RESP: CTAB, Normal work of breathing. Abdomen: non-distended EXTREMITIES: Warm and well perfused, no clubbing, cyanosis, or edema. SKIN: warm, dry and intact. NEURO: CN 2-12 grossly intact. Bilateral lower extremity weakness 2/2 to transverse myelitis. Objective Data Vital Signs Vital Signs: Vital Signs - 24 hr 09/15/22 13:50 09/15/22 16:34 09/15/22 18:13 Temperature 37.0 C Pulse Rate 132 H 110 H 76 Respiratory Rate 18 18 18 Blood Pressure 127/74 129/65 106/65 Pulse Oximetry 98 97 97 Oxygen Delivery Room Air 09/15/22 18:55 09/15/22 20:25 09/16/22 03:46 Temperature 37.2 C 37.2 C 36.6 C Pulse Rate 112 H 106 H 86 Respiratory Rate 20 18 16 Blood Pressure 112/89 94/74 L 100/58 L Pulse Oximetry 96 96 94 Oxygen Delivery Intake/Output Intake/Output: Intake & Output 09/13/22 09/14/22 09/15/22 09/16/22 23:59 23:59 23:59 23:59 Intake Total 1050 290 Output Total 1200 Balance 1050 -910 Meds/Results Medications: Active Medications Generic Name Dose Route Start Last Admin Trade Name Freq PRN Reason Stop Dose Admin Acetaminophen 650 mg 09/15/22 22:19 Acetaminophen 325 Mg Tablet PO Q6H PRN Mild Pain (1-3) or Fever Albuterol 1 puff 09/15/22 22:20 Albuterol Sulfate (*Sp) Aerosol 1 Puff INHALATION Q6H PRN Shortness Of Breath Bisacodyl 10 mg 09/15/22 22:20 Bisacodyl 10 Mg Suppository RECTAL DAILY PRN Constipation Calcium Carbonate 200 mg 09/16/22 09:00 Calcium Carbonate (Tums) 500 Mg (200 Mg Elemental) PO QID KALE Enoxaparin Sodium 40 mg 09/16/22 09:00 Enoxaparin 40 Mg/0.4 Ml Syringe SUB-Q DAILY [facility] Ceftriaxone Sodium/Dextrose 1 gm in 50 mls @ 100 mls/hr 09/15/22 17:00 09/15/22 17:40 Rocephin 1 Gm/D5w 50 Ml IVPB Infused Q24H KALE Infusion Sodium Chloride 1,000 mls @ 75 mls/hr 09/15/22 16:35 09/16/22 00:43 Normal Saline Iv IV CONT 75 mls/hr .[id number] KALE Administration Melatonin 3 mg 09/15/22 22:25 09/16/22
[2022-09-16] MEDS: polyethylene glycoL 3350 17 GM POWD.PACK PO (09:10)
[2022-09-16] MEDS: ENOXAPARIN 40 MG/0.4 ML SYRINGE SUB-Q (09:10)
--- NOTE | 2022-09-16 09:24 | WPDNEURCNPN ---
Assessment and Plan Assessment and plan (1) Transverse myelitis: Code(s): G37.3 - Acute transverse myelitis in demyelinating disease of central nervous system Status: Acute (2) Acute urinary retention: Code(s): R33.8 - Other retention of urine Status: Acute (3) Acute urinary tract infection: Code(s): N39.0 - Urinary tract infection, site not specified Status: Acute Plan Mr. Justin is a 61 year old male with recently diagnosed transverse myelitis presenting for evaluation of fever, back pain, and worsening weakness -- found to have UTI. Patient reports worsening of bladder and bowel function as well as increasing numbness. Could be exacerbation of symptoms from underlying infection, will need neuroimaging to rule out recurrent episode of transverse myelitis. - Will obtain MRI complete spine w/wo contrast Consult date: 09/16/22 Time Seen: 09:24 Reason for consult: Lower extremity weakness HPI: Binu Justin is a 61 year old male recently diagnosed with transverse myelitis earlier this month, who presented from [facility] due to back pain and worsening weakness. He was admitted a month ago due to pain and weakness of lower extremities. He was COVID+ at the time. Lumbar puncture was done which showed cell count of 138, protein 216 and normal CSF glucose. MRI of spine revealed patchy areas of hyperintensities from T1 to T9. No obvious contrast enhancement, but limited due to motion artifact. He was treated with high dose IV steroids for transverse myelitis. He declined plasmapheresis. MRI brain was normal. Sent for CSF HSV, EBV, VZV, CMV, enterovirus as well as serum AQP4 ab and MOG ab which were all negative. Patient presented yesterday due to fever, back pain and worsening weakness. He was found to have a UTI with urinary retention, and started on antibiotics. Patient reports the weakness started after he received a higher dose of gabapentin 300mg. He started having more numbness and weakness (could not sit up), had urinary retention. He feels that the weakness is somewhat better since being admitted. Review of Systems Constitutional: Constitutional: Reports weakness Eyes: Eyes: Reports no additional eye complaints ENT: Reports system reviewed and no additional complaints, except as documented Cardiovascular: Cardiovascular: Reports no additional cardiovascular complaints Respiratory: Respiratory: Reports no additional respiratory complaints Gastrointestinal: Gastrointestinal: Reports no additional gastrointestinal complaints Genitourinary: Comments: urinary retention Musculoskeletal: Musculoskeletal: Reports back pain Integumentary/Breasts: Skin/Breast: Reports system reviewed and no additional complaints, except as docu Neurologic: Reports as per HPI Psychiatric: Psychiatric: Reports no additional psychiatric complaints PMFSH Past Medical History Medical History Chronic back pain Chronic hip pain COVID (07/2022) Tobacco abuse Surgical History Surgical History History of appendectomy History of hand surgery Left index finger surgery. 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 He has smoked a pack of cigarettes a day for 40 years but is not smoked since his recent hospitalization in July 2022. He drinks a 5th of Yan Erazo in a week. Uses marijuana occasionally. He is and lives with his
[2022-09-16 11:32] VITALS: BP 92/52; PULSE 85; RESP 18; TEMP 36.7; O2SAT 97
[2022-09-16 21:16] VITALS: BP 103/57; PULSE 79; RESP 18; TEMP 36.4; O2SAT 97
[2022-09-17 04:27] VITALS: BP 108/63; PULSE 75; RESP 18; TEMP 36.2; O2SAT 96
--- NOTE | 2022-09-17 07:36 | PM.IMPN ---
Progress Note: A&P Assessment and Plan (1) Sepsis: Code(s): A41.9 - Sepsis, unspecified organism Status: Acute Assessment and Plan: CT of the lumbar spine and abdomen showed severe lumbar spondylosis and bladder wall thickening. UCX pansensitive pseudomonas. Leukocytosis downtrending. -Cefepime 2g q8h day #2 (2) Acute urinary tract infection: Code(s): N39.0 - Urinary tract infection, site not specified Status: Acute Assessment and Plan: UCX pansensitive pseudomonas. Continue cefepime. (3) Acute urinary retention: Code(s): R33.8 - Other retention of urine Status: Acute Assessment and Plan: Continue kothari. (4) Transverse myelitis: Code(s): G37.3 - Acute transverse myelitis in demyelinating disease of central nervous system Status: Acute Assessment and Plan: New worsening of weakness. MRI from previous hospitalization on 08/22/22 showed Thoracic MR showing increased signal intensity in the spinal cord from T1 to T9. MRI + LP were consistent with transverse myelitis assumed to be due to COVID19 as other studies remained negative throughout the hospitalization. New MRI 09/16/22 shows patchy areas of ill defined increased T2 weighted signals. Had long discussion with patient and who had many questions about transverse myelitis, plasmapheresis, steroids from his previous hospitalization. All questions were answered. Discussed with Neurology who will offer the patient steroids versus plasmapheresis. If chooses plasma plasmapheresis, will need transfer to another facility. -Appreciate recommendations from Neurology -Continue physical and occupational therapy Subjective Date/time seen: 09/17/22 07:36 at bedside with many questions about previous hospitalization before transfer to [facility]. Patient reports he believes gabapentin caused his urinary retention. Patient says he feels like he is already starting to regain some of the strength he lost after having urinary retention. Patient says he refused plasmapheresis during the last hospitalization due to concerns about possible side effects. Review of Systems Genitourinary: Genitourinary: Reports other Comments: urinary retention Musculoskeletal: Musculoskeletal: Reports muscle weakness and Reports numbness Exam Narrative: GENERAL: NAD, cooperative HEENT: Normocephalic, atraumatic, anicteric, poor dentition NECK: Supple CV: Normal S1, S2, RRR, No MRG RESP: CTAB, Normal work of breathing. Abdomen: non-distended EXTREMITIES: Warm and well perfused, no clubbing, cyanosis, or edema. SKIN: warm, dry and intact. NEURO: CN 2-12 grossly intact. Bilateral lower extremity weakness 2/2 to transverse myelitis. Objective Data Vital Signs Vital Signs: Vital Signs - 24 hr 09/16/22 08:00 09/16/22 11:32 09/16/22 21:16 Temperature 36.7 C 36.4 C Pulse Rate 85 79 Respiratory Rate 18 18 Blood Pressure 92/52 L 103/57 L Pulse Oximetry 97 97 Oxygen Delivery Room Air 09/17/22 04:27 Temperature 36.2 C L Pulse Rate 75 Respiratory Rate 18 Blood Pressure 108/63 Pulse Oximetry 96 Oxygen Delivery Intake/Output Intake/Output: Intake & Output 09/14/22 09/15/22 09/16/22 09/17/22 23:59 23:59 23:59 23:59 Intake Total 1050 2440 290 Output Total 3475 1800 Balance 1050 -3556 -1180 Meds/Results Medications: Active Medications Generic Name Dose Route Start Last Admin Trade Name Freq PRN Reason Stop Dose Admin Acetaminophen 650 mg 09/15/22 22:19 Acetaminophen 325 Mg Tablet PO Q6H PRN Mild Pain (1-3) or Fever Albuterol 1 puff 09/15/22 22:20 Albuterol Sulfate (*Sp) Aerosol 1 Puff INHALATION Q6H PRN Shortness Of Breath Bisacodyl 10 mg 09/15/22 22:20 Bisacodyl 10 Mg Suppository RECTAL DAILY PRN Constipation Calcium Carbonate 200 mg 09/16/22 20:24 Calcium Carbonate (
--- NOTE | 2022-09-17 09:02 | WPDNEUROPN ---
Progress Note: A&P Assessment and Plan (1) Transverse myelitis: Code(s): G37.3 - Acute transverse myelitis in demyelinating disease of central nervous system Status: Acute (2) Acute urinary retention: Code(s): R33.8 - Other retention of urine Status: Acute (3) Acute urinary tract infection: Code(s): N39.0 - Urinary tract infection, site not specified Status: Acute (4) Leg weakness, bilateral: Code(s): R29.898 - Other symptoms and signs involving the musculoskeletal system Status: Acute Plan Mr. Justin is a 61 year old male with recently diagnosed transverse myelitis presenting for evaluation of fever, back pain, and worsening weakness -- found to have UTI. Patient reports worsening of bladder and bowel function as well as increasing numbness. MRI showed new hyperintensities of the cervical cord, but resolution of lesions in the thoracic cord. It's likely that the cervical involvement is what caused his transient worsening of sensation and weakness. Patient feels that his strength has improved since admission, but still not where it was when he was in rehab. Discussed treatment options in length with patient and his . Discussed that the steroids may provide some improvement, but that there is a chance that it may not help. He also has a UTI presently that is being treated, so there is a risk of worsening infection with steroids. Also discussed plasmapheresis for further treatment given the recurrence, and its risks and benefits. - Patient is still deciding about steroids and plasmapheresis -- discussed that benefit of treatment is higher, the earlier it is started. - Recommend high dose solumedrol 1g/day divided BID; per hospitalist, ok to start treatment since UTI is being treated with high dose cefepime - Start PPI with steroids - If patient is agreeable to plasmapheresis, will require transfer to a center that is able to do it. Subjective Date/time seen: 09/17/22 09:02 Interval history: HPI: Binu Justin is a 61 year old male recently diagnosed with transverse myelitis earlier this month, who presented from [facility] due to back pain and worsening weakness. He was admitted a month ago due to pain and weakness of lower extremities. He was COVID+ at the time. Lumbar puncture was done which showed cell count of 138, protein 216 and normal CSF glucose. MRI of spine revealed patchy areas of hyperintensities from T1 to T9. No obvious contrast enhancement, but limited due to motion artifact. He was treated with high dose IV steroids for transverse myelitis. He declined plasmapheresis. MRI brain was normal. Sent for CSF HSV, EBV, VZV, CMV, enterovirus as well as serum AQP4 ab and MOG ab which were all negative. Patient presented 09/15 due to fever, back pain and worsening weakness. He was found to have a UTI with urinary retention, and started on antibiotics. Patient reports the weakness started after he received a higher dose of gabapentin 300mg. He started having more numbness and weakness (could not sit up), had urinary retention. He feels that the weakness is somewhat better since being admitted. Interval history: Cervical MRI showed patchy areas of hyperintensities which is new from prior imaging, although lesions in thoracic cord have resolved. Lumbar spine showed spondylosis but no signal change. Patient feels better compared to yesterday. He still believes that the decline in his strength was due to the Gabapentin. Review of Systems Constitutional: Constitutional: Reports weakness Eyes: Eyes: Reports no additional eye complaints ENT: Reports system reviewed and no additional complaints, except as documented Cardiovascular: Cardiovascular: Reports no additional cardiovascular complaints Respiratory: Respiratory: Reports no additional respiratory complaints Gastrointestinal: Gastrointestinal: Reports constipation Genitourinary: Comments: urinary retension Mus
[2022-09-17] MEDS: ENOXAPARIN 40 MG/0.4 ML SYRINGE SUB-Q (09:08)
[2022-09-17] MEDS: polyethylene glycoL 3350 17 GM POWD.PACK PO (09:08)
[2022-09-17 09:12] VITALS: BMI 10.0
[2022-09-17 13:40] VITALS: BP 143/65; PULSE 84; RESP 20; TEMP 36.1; O2SAT 99
--- NOTE | 2022-09-17 20:05 | P.PNCROSS_ITS ---
Event Note Event Note Event Note: Patient requested to speak with me before agreeing to treatment of transverse m yelitis. Discussed standard duration of treatment for antibiotics in male. Discussed bacteremia treatment. Discussed dsoe and duration of steroid treatment with patient. Discussed associated demargination causing leukocytosis with steroids. Patient agrees to start steroids for treatment of possible worsening of transverse myelitis. Discussed dose with Neurology, who recommends methylprednisolone 500 mg IV q12h for 5 days.
[2022-09-17] MEDS: methylPREDNISolone SOD SUCC 500 MG in DEXTROSE 5% 100 ML 200 MG IVPB (22:13)
[2022-09-17] MEDS: MELATONIN 3 MG TABLET PO (22:14)
[2022-09-17] MEDS: DOCUSATE SODIUM 100 MG CAPSULE PO (22:14)
[2022-09-17 22:24] VITALS: BP 103/64; PULSE 75; RESP 18; TEMP 36.6; O2SAT 97
[2022-09-18 06:00] VITALS: BP 98/61; PULSE 80; RESP 20; TEMP 36.4; O2SAT 100
[2022-09-18] MEDS: polyethylene glycoL 3350 17 GM POWD.PACK PO (08:04)
[2022-09-18] MEDS: methylPREDNISolone SOD SUCC 500 MG in DEXTROSE 5% 100 ML 200 MG IVPB ×2 (08:04→20:22)
[2022-09-18] MEDS: ENOXAPARIN 40 MG/0.4 ML SYRINGE SUB-Q (08:04)
[2022-09-18] MEDS: DOCUSATE SODIUM 100 MG CAPSULE PO ×2 (08:04→20:22)
[2022-09-18 08:31] LABS: Glucose Point of Care 214 mg/dl (65-105)
[2022-09-18] MEDS: INSULIN ASPART (*BKC) 100 UNITS/ML SUB-Q (08:36)
--- NOTE | 2022-09-18 08:50 | WPDNEUROPN ---
Progress Note: A&P Assessment and Plan (1) Transverse myelitis: Code(s): G37.3 - Acute transverse myelitis in demyelinating disease of central nervous system Status: Acute (2) Acute urinary retention: Code(s): R33.8 - Other retention of urine Status: Acute (3) Acute urinary tract infection: Code(s): N39.0 - Urinary tract infection, site not specified Status: Acute (4) Leg weakness, bilateral: Code(s): R29.898 - Other symptoms and signs involving the musculoskeletal system Status: Acute Plan Mr. Justin is a 61 year old male with recently diagnosed transverse myelitis presenting for evaluation of fever, back pain, and worsening weakness -- found to have UTI. Patient reports worsening of bladder and bowel function as well as increasing numbness. MRI showed new hyperintensities of the cervical cord, but resolution of lesions in the thoracic cord. It's likely that the cervical involvement is what caused his transient worsening of sensation and weakness. Patient feels that his strength has improved since admission. Discussed treatment options in length with patient and his , and that steroids may provide some improvement, but that there is a chance that it may not help. He was agreeable to start steroids, which were started on 09/17 for 5 day course. Also discussed plasmapheresis for further treatment given the recurrence, and its risks and benefits. - Continue Solumedrol 500mg BID x 5 days (today is day 2) - If patient is agreeable to plasmapheresis, will require transfer to higher level of care Subjective Date/time seen: 09/18/22 08:50 Interval history: Binu Justin is a 61 year old male recently diagnosed with transverse myelitis earlier this month, who presented from [facility] due to back pain and worsening weakness. He was admitted a month ago due to pain and weakness of lower extremities. He was COVID+ at the time. Lumbar puncture was done which showed cell count of 138, protein 216 and normal CSF glucose. MRI of spine revealed patchy areas of hyperintensities from T1 to T9. No obvious contrast enhancement, but limited due to motion artifact. He was treated with high dose IV steroids for transverse myelitis. He declined plasmapheresis. MRI brain was normal. Sent for CSF HSV, EBV, VZV, CMV, enterovirus as well as serum AQP4 ab and MOG ab which were all negative. Patient presented 09/15 due to fever, back pain and worsening weakness. He was found to have a UTI with urinary retention, and started on antibiotics. Patient reports the weakness started after he received a higher dose of gabapentin 300mg. He started having more numbness and weakness (could not sit up), had urinary retention. Cervical MRI showed patchy areas of hyperintensities (without enhancement) which is new from prior imaging, although lesions in thoracic cord have resolved. Lumbar spine showed spondylosis but no signal change. Interval history: Started on Solumedrol yesterday. Reports he is feeling better. Feeling stronger in the trunk. Still having some numbness in the arms when he bends his neck. Review of Systems Constitutional: Constitutional: Reports weakness Eyes: Eyes: Reports no additional eye complaints ENT: Reports system reviewed and no additional complaints, except as documented Cardiovascular: Cardiovascular: Reports no additional cardiovascular complaints Respiratory: Respiratory: Reports no additional respiratory complaints Gastrointestinal: Gastrointestinal: Reports no additional gastrointestinal complaints Genitourinary: Comments: urinary rentension Musculoskeletal: Musculoskeletal: Reports back pain Integumentary/Breasts: Skin/Breast: Reports system reviewed and no additional complaints, except as docu Neurologic: Reports as per HPI Psychiatric: Psychiatric: Reports no additional psychiatric complaints Exam Const: General: comfortable and no acute distress HENMT: Mouth: Y
[2022-09-18] MEDS: PANTOPRAZOLE 40 MG TABLET PO ×2 (09:27→22:35)
[2022-09-18 11:56] LABS: Glucose Point of Care 168 mg/dl (65-105)
--- NOTE | 2022-09-18 13:36 | PC.NURSE ---
On 09/18/22, the student, [Britta Nicolas], provided care and completed [facility] documentation on this patient. I have reviewed the student's documentation and agree with the findings.
--- NOTE | 2022-09-18 14:09 | PM.IMPN ---
Progress Note: A&P Assessment and Plan (1) Sepsis: Code(s): A41.9 - Sepsis, unspecified organism Status: Acute Assessment and Plan: CT of the lumbar spine and abdomen showed severe lumbar spondylosis and bladder wall thickening. UCX pansensitive pseudomonas. Leukocytosis downtrending. -Cefepime 2g q8h day #2 (2) Acute urinary tract infection: Code(s): N39.0 - Urinary tract infection, site not specified Status: Acute Assessment and Plan: UCX pansensitive pseudomonas. Continue cefepime. (3) Acute urinary retention: Code(s): R33.8 - Other retention of urine Status: Acute Assessment and Plan: Continue kothari. (4) Transverse myelitis: Code(s): G37.3 - Acute transverse myelitis in demyelinating disease of central nervous system Status: Acute Assessment and Plan: New worsening of weakness. MRI from previous hospitalization on 08/22/22 showed Thoracic MR showing increased signal intensity in the spinal cord from T1 to T9. MRI + LP were consistent with transverse myelitis assumed to be due to COVID19 as other studies remained negative throughout the hospitalization. New MRI 09/16/22 shows patchy areas of ill defined increased T2 weighted signals. Had long discussion with patient and who had many questions about transverse myelitis, plasmapheresis, steroids from his previous hospitalization. All questions were answered. Discussed with Neurology who will offer the patient steroids versus plasmapheresis. If chooses plasma plasmapheresis, will need transfer to another facility. -Appreciate recommendations from Neurology -Continue physical and occupational therapy 09/18/2022 interval history: patient with a transverse myelitis and worsening weakness seen by Neurology patient agreed start high-dose steroid and patient is currently taking methylprednisone 500 mg b.i.d. scheduled for 5 days today today 2. Patient states is feeling little better since start of the steroid concern about his blood glucose will continue to monitor, patient is not interested in plasmapheresis, patient will continue to work with physical therapy, patient also found to have UTI with Pseudomonas being treated with Cefepime, patient clinical symptoms are improving continue to monitor further recommendation to follow. Subjective Date/time seen: 09/18/22 14:09 New worsening of weakness. MRI from previous hospitalization on 08/22/22 showed Thoracic MR showing increased signal intensity in the spinal cord from T1 to T9. MRI + LP were consistent with transverse myelitis assumed to be due to COVID19 as other studies remained negative throughout the hospitalization. New MRI 09/16/22 shows patchy areas of ill defined increased T2 weighted signals. Had long discussion with patient and who had many questions about transverse myelitis, plasmapheresis, steroids from his previous hospitalization. All questions were answered. Discussed with Neurology who will offer the patient steroids versus plasmapheresis. If chooses plasma plasmapheresis, will need transfer to another facility. -Appreciate recommendations from Neurology -Continue physical and occupational therapy 09/18/2022 interval history: patient with a transverse myelitis and worsening weakness seen by Neurology patient agreed start high-dose steroid and patient is currently taking methylprednisone 500 mg b.i.d. scheduled for 5 days today today 2. Patient states is feeling little better since start of the steroid concern about his blood glucose will continue to monitor, patient is not interested in plasmapheresis, patient will continue to work with physical therapy, patient also found to have UTI with Pseudomonas being treated with Cefepime, patient clinical symptoms are improving continue to monitor further recommendation to follow. Review of Systems Constitutional: Constitutional: Denies chills and
[2022-09-18 14:51] VITALS: BP 120/71; PULSE 93; RESP 18; TEMP 36.5; O2SAT 99
[2022-09-18 16:55] LABS: Glucose Point of Care 148 mg/dl (65-105)
[2022-09-18 19:53] VITALS: PULSE 93; RESP 18; O2SAT 99
[2022-09-18 20:02] VITALS: BMI 22.4
[2022-09-18 20:05] VITALS: BP 109/79; PULSE 90; RESP 16; TEMP 36.7; O2SAT 97
[2022-09-18] MEDS: MELATONIN 3 MG TABLET PO (22:37)
[2022-09-18 22:43] LABS: Glucose Point of Care 175 mg/dl (65-105)
[2022-09-19 05:24] LABS: Hematocrit 33.3 % (42.0-52.0); Hemoglobin 11.6 g/dL (14.0-18.0); Mean Corpuscular HGB Conc 34.8 g/dl (32-36); Mean Corpuscular Hemoglobin 29.9 pg (26-34); Mean Corpuscular Volume 85.8 fl (80-100); Platelet Count Result 389 k/mm3 (150-375); Red Blood Count 3.88 M/mm3 (4.6-6.20); Red Cell Distribution Width 12.9 % (11.5-14.5); White Blood Count 15.9 K/mm3 (4.5-10.0)
[2022-09-19 05:35] LABS: Anion Gap 9 mmol/L (8-16); Blood Urea Nitrogen 19 mg/dL (9-20); Calcium 9.2 mg/dL (8.4-10.2); Carbon Dioxide 27 mmol/L (22-30); Chloride 102 mmol/L (98-107); Estimated CRCL calculation 85 ml/min; Estimated Glomerular Filt Rate > 60; Glucose 152 mg/dL (65-110); Potassium 4.1 mmol/L (3.4-5.0); Sodium 138 mmol/L (137-145)
[2022-09-19 06:52] VITALS: BP 110/65; PULSE 81; RESP 16; TEMP 36.7; O2SAT 96
[2022-09-19 08:07] VITALS: RESP 16; O2SAT 97
--- NOTE | 2022-09-19 08:47 | WPDNEUROPN ---
Progress Note: A&P Assessment and Plan (1) Transverse myelitis: Code(s): G37.3 - Acute transverse myelitis in demyelinating disease of central nervous system Status: Acute (2) Acute urinary retention: Code(s): R33.8 - Other retention of urine Status: Acute (3) Leg weakness, bilateral: Code(s): R29.898 - Other symptoms and signs involving the musculoskeletal system Status: Acute Plan Mr. Justin is a 61 year old male with recently diagnosed transverse myelitis presenting for evaluation of fever, back pain, and worsening weakness -- found to have UTI. Patient reports worsening of bladder and bowel function as well as increasing numbness. MRI showed new hyperintensities of the cervical cord, but resolution of lesions in the thoracic cord. It's likely that the cervical involvement caused his transient worsening of sensation and weakness. Patient feels that his strength has improved since admission. High dose steroids were started on 09/17 for 5 day course. Also discussed plasmapheresis for further treatment given the recurrence, and its risks and benefits. -? Continue Solumedrol 500mg BID x 5 days (today is day 3) - If patient is agreeable to plasmapheresis, will require transfer to higher level of care Subjective Date/time seen: 09/19/22 08:47 Interval history: Binu Justin is a 61 year old male recently diagnosed with transverse myelitis earlier this month, who presented from [facility] due to back pain and worsening weakness. He was admitted a month ago due to pain and weakness of lower extremities. He was COVID+ at the time. Lumbar puncture was done which showed cell count of 138, protein 216 and normal CSF glucose. MRI of spine revealed patchy areas of hyperintensities from T1 to T9. No obvious contrast enhancement, but limited due to motion artifact. He was treated with high dose IV steroids for transverse myelitis. He declined plasmapheresis. MRI brain was normal. Sent for CSF HSV, EBV, VZV, CMV, enterovirus as well as serum AQP4 ab and MOG ab which were all negative. Patient presented 09/15 due to fever, back pain and worsening weakness. He was found to have a UTI with urinary retention, and started on antibiotics. Patient reports the weakness started after he received a higher dose of gabapentin 300mg. He started having more numbness and weakness (could not sit up), had urinary retention. Cervical MRI showed patchy areas of hyperintensities (without enhancement) which is new from prior imaging, although lesions in thoracic cord have resolved. Lumbar spine showed spondylosis but no signal change. Started on Solumedrol 09/17. Reports he is feeling better. Feeling stronger in the trunk. Still having some numbness in the arms when he bends his neck. Starting to feel some urge to urinate and stool. Review of Systems Constitutional: Constitutional: Reports weakness Eyes: Eyes: Reports no additional eye complaints ENT: Reports system reviewed and no additional complaints, except as documented Cardiovascular: Cardiovascular: Reports no additional cardiovascular complaints Respiratory: Respiratory: Reports no additional respiratory complaints Gastrointestinal: Gastrointestinal: Reports no additional gastrointestinal complaints Genitourinary: Comments: urinary rentention Musculoskeletal: Musculoskeletal: Reports no additional musculoskeletal complaints Integumentary/Breasts: Skin/Breast: Reports system reviewed and no additional complaints, except as docu Neurologic: Reports as per HPI Psychiatric: Psychiatric: Reports no additional psychiatric complaints Objective Data Vital Signs Vital Signs: Vital Signs - 24 hr 09/18/22 14:51 09/18/22 19:53 09/18/22 20:05 Temperature 36.5 C 36.7 C Pulse Rate 93 93 90 Respiratory Rate 18 18 16 Blood Pressure 120/71 109/79 Pulse Oximetry 99 99 97 Oxygen Delivery Room Air 09/19/22 06:52 09/19/22 08:07 Temperature 36.7 C Puls
[2022-09-19 09:00] LABS: Glucose Point of Care 141 mg/dl (65-105)
[2022-09-19] MEDS: methylPREDNISolone SOD SUCC 500 MG in DEXTROSE 5% 100 ML 200 MG IVPB ×2 (09:33→20:45)
[2022-09-19] MEDS: polyethylene glycoL 3350 17 GM POWD.PACK PO (09:34)
[2022-09-19] MEDS: ENOXAPARIN 40 MG/0.4 ML SYRINGE SUB-Q (09:34)
[2022-09-19] MEDS: INSULIN GLARGINE (*BKC) 100 UNITS/ML SUB-Q ×2 (09:35→20:43)
[2022-09-19] MEDS: PANTOPRAZOLE 40 MG TABLET PO ×2 (09:36→20:43)
[2022-09-19 12:16] LABS: Glucose Point of Care 129 mg/dl (65-105)
[2022-09-19 14:20] VITALS: BP 127/71; PULSE 94; RESP 16; TEMP 36.5; O2SAT 98
[2022-09-19 17:17] LABS: Glucose Point of Care 137 mg/dl (65-105)
[2022-09-19 20:00] VITALS: PULSE 86; RESP 16; O2SAT 96
[2022-09-19] MEDS: DOCUSATE SODIUM 100 MG CAPSULE PO (20:43)
[2022-09-19 20:44] VITALS: BP 110/68; PULSE 86; RESP 16; TEMP 36.6; O2SAT 96
[2022-09-19 20:53] LABS: Glucose Point of Care 209 mg/dl (65-105)
[2022-09-19] MEDS: MELATONIN 3 MG TABLET PO (22:49)
[2022-09-20 05:35] LABS: Hematocrit 33.1 % (42.0-52.0); Hemoglobin 11.5 g/dL (14.0-18.0); Mean Corpuscular HGB Conc 34.7 g/dl (32-36); Mean Corpuscular Hemoglobin 29.9 pg (26-34); Mean Corpuscular Volume 86.2 fl (80-100); Platelet Count Result 391 k/mm3 (150-375); Red Blood Count 3.84 M/mm3 (4.6-6.20); White Blood Count 17.1 K/mm3 (4.5-10.0)
[2022-09-20 05:52] LABS: Anion Gap 10 mmol/L (8-16); Blood Urea Nitrogen 24 mg/dL (9-20); Calcium 8.7 mg/dL (8.4-10.2); Carbon Dioxide 28 mmol/L (22-30); Chloride 98 mmol/L (98-107); Estimated CRCL calculation 82 ml/min; Estimated Glomerular Filt Rate > 60; Glucose 137 mg/dL (65-110); Sodium 136 mmol/L (137-145)
[2022-09-20 05:53] VITALS: BP 100/61; PULSE 68; RESP 16; TEMP 36.6; O2SAT 97
--- NOTE | 2022-09-20 07:34 | PM.IMPN ---
Progress Note: A&P Assessment and Plan (1) Sepsis: Code(s): A41.9 - Sepsis, unspecified organism Status: Acute Assessment and Plan: CT of the lumbar spine and abdomen showed severe lumbar spondylosis and bladder wall thickening. UCX pansensitive pseudomonas. Leukocytosis downtrending. -Cefepime 2g q8h day #2 (2) Acute urinary tract infection: Code(s): N39.0 - Urinary tract infection, site not specified Status: Acute Assessment and Plan: UCX pansensitive pseudomonas. Continue cefepime. (3) Acute urinary retention: Code(s): R33.8 - Other retention of urine Status: Acute Assessment and Plan: Continue kothari. (4) Transverse myelitis: Code(s): G37.3 - Acute transverse myelitis in demyelinating disease of central nervous system Status: Acute Assessment and Plan: New worsening of weakness. MRI from previous hospitalization on 08/22/22 showed Thoracic MR showing increased signal intensity in the spinal cord from T1 to T9. MRI + LP were consistent with transverse myelitis assumed to be due to COVID19 as other studies remained negative throughout the hospitalization. New MRI 09/16/22 shows patchy areas of ill defined increased T2 weighted signals. Had long discussion with patient and who had many questions about transverse myelitis, plasmapheresis, steroids from his previous hospitalization. All questions were answered. Discussed with Neurology who will offer the patient steroids versus plasmapheresis. If chooses plasma plasmapheresis, will need transfer to another facility. -Appreciate recommendations from Neurology -Continue physical and occupational therapy 09/19/2022 interval history: patient with a transverse myelitis and worsening weakness seen by Neurology patient agreed start high-dose steroid and patient is currently taking methylprednisone 500 mg b.i.d. scheduled for 5 days today today 2. Patient states is feeling little better since start of the steroid concern about his blood glucose added lantus 5u qd will continue to monitor, patient is not interested in plasmapheresis, patient will continue to work with physical therapy, patient also found to have UTI with Pseudomonas being treated with Cefepime, patient clinical symptoms are improving continue to monitor further recommendation to follow. Patient mother is present in the room, he stats if he can do his ADL without assistance, he would like to go home. Subjective Date/time seen: 09/19/22 1700 09/19/2022 interval history: patient with a transverse myelitis and worsening weakness seen by Neurology patient agreed start high-dose steroid and patient is currently taking methylprednisone 500 mg b.i.d. scheduled for 5 days today today 2. Patient states is feeling little better since start of the steroid concern about his blood glucose added lantus 5u qd will continue to monitor, patient is not interested in plasmapheresis, patient will continue to work with physical therapy, patient also found to have UTI with Pseudomonas being treated with Cefepime, patient clinical symptoms are improving continue to monitor further recommendation to follow. Patient mother is present in the room, he stats if he can do his ADL without assistance, he would like to go home. Exam Narrative: Patient is comfortable, NAD HEENT: eyes are clear and none icteric LUNGS: normal respiratory effort ABD: not distended Lower extremities: no edema SKIN: nonjaundiced NEURO: CN 2-12 grossly intact. Bilateral lower extremity weakness 2/2 to transverse myelitis. Objective Data Vital Signs Vital Signs: Vital Signs - 24 hr 09/19/22 08:07 09/19/22 14:20 09/19/22 20:44 Temperature 97.7 F 97.8 F Pulse Rate 94 86 Respiratory Rate 16 16 16 Blood Pressure 127/71 110/68 Pulse Oximetry 97 98 96 Oxygen Delivery Room Air 09/19/22 20:00 09/20/22 05:53 Temperature 97.8 F Pulse Rate 86
[2022-09-20] MEDS: ENOXAPARIN 40 MG/0.4 ML SYRINGE SUB-Q (09:02)
[2022-09-20] MEDS: PANTOPRAZOLE 40 MG TABLET PO ×2 (09:03→20:55)
[2022-09-20] MEDS: polyethylene glycoL 3350 17 GM POWD.PACK PO (09:03)
[2022-09-20 09:04] VITALS: RESP 16; O2SAT 97
[2022-09-20] MEDS: methylPREDNISolone SOD SUCC 500 MG in DEXTROSE 5% 100 ML 200 MG IVPB ×2 (09:09→20:50)
[2022-09-20 09:12] LABS: Glucose Point of Care 116 mg/dl (65-105)
--- NOTE | 2022-09-20 11:34 | WPDNEUROPN ---
Progress Note: A&P Assessment and Plan (1) Transverse myelitis: Code(s): G37.3 - Acute transverse myelitis in demyelinating disease of central nervous system Status: Acute (2) Acute urinary retention: Code(s): R33.8 - Other retention of urine Status: Acute (3) Acute urinary tract infection: Code(s): N39.0 - Urinary tract infection, site not specified Status: Acute (4) Leg weakness, bilateral: Code(s): R29.898 - Other symptoms and signs involving the musculoskeletal system Status: Acute Plan Mr. Justin is a 61 year old male with recently diagnosed transverse myelitis presenting for evaluation of fever, back pain, and worsening weakness -- found to have UTI. Patient reports worsening of bladder and bowel function as well as increasing numbness. MRI showed new hyperintensities of the cervical cord, but resolution of lesions in the thoracic cord. It's likely that the cervical involvement caused his transient worsening of sensation and weakness. Patient feels that his strength has improved since admission. High dose steroids were started on 09/17 for 5 day course. Also discussed plasmapheresis for further treatment given the recurrence, and its risks and benefits. -?Continue Solumedrol 500mg BID x 5 days (today is day 4) - Patient has decided against plasmpaheresis - On discharge, patient will need outpatient [facility] referral for Neuroimmunologist; I have provided patient the contact number to schedule an appt after discharge Subjective Date/time seen: 09/20/22 11:34 Interval history: Binu Justin is a 61 year old male recently diagnosed with transverse myelitis earlier this month, who presented from [facility] due to back pain and worsening weakness. He was admitted a month ago due to pain and weakness of lower extremities. He was COVID+ at the time. Lumbar puncture was done which showed cell count of 138, protein 216 and normal CSF glucose. MRI of spine revealed patchy areas of hyperintensities from T1 to T9. No obvious contrast enhancement, but limited due to motion artifact. He was treated with high dose IV steroids for transverse myelitis. He declined plasmapheresis. MRI brain was normal. Sent for CSF HSV, EBV, VZV, CMV, enterovirus as well as serum AQP4 ab and MOG ab which were all negative. Patient presented 09/15 due to fever, back pain and worsening weakness. He was found to have a UTI with urinary retention, and started on antibiotics. Patient reports the weakness started after he received a higher dose of gabapentin 300mg. He started having more numbness and weakness (could not sit up), had urinary retention. Cervical MRI showed patchy areas of hyperintensities (without enhancement) which is new from prior imaging, although lesions in thoracic cord have resolved. Lumbar spine showed spondylosis but no signal change. Started on Solumedrol 09/17. No significant changes compared to yesterday. Review of Systems Review of Systems: All systems reviewed & are unremarkable except as noted in HPI and below Exam Const: General: comfortable and no acute distress HENMT: Mouth: Yes moist mucous membranes Eyes: Pupils: Equal, round and reactive pupils present EOM: EOMs intact bilaterally Resp: Effort & Inspection: normal respiratory effort Auscultation: clear to auscultation bilaterally Cardio: Rate: regular rate Rhythm: regular rhythm GI: GI Palp: Yes Soft to palpation Auscultation: normal bowel sounds Skin: General skin exam: normal color Neuro: Other: AOx3, Pupils equal and reactive bilaterally, EOMI, face symmetric, facial sensation intact, tongue protrudes midline, palate midline. Shoulder shrug normal. Strength 5/5 in bilateral upper extremities, 1/5 in bilateral lower extremities. Lower extremities areflexive. Language comprehension and fluency intact. Gait deferred. Psych: Mental Status: mental status grossly normal Affect: normal affect Objective Data
--- NOTE | 2022-09-20 11:50 | PM.IMPN ---
Progress Note: A&P Assessment and Plan (1) Sepsis: Code(s): A41.9 - Sepsis, unspecified organism Status: Acute Assessment and Plan: CT of the lumbar spine and abdomen showed severe lumbar spondylosis and bladder wall thickening. UCX pansensitive pseudomonas. Leukocytosis downtrending. -Cefepime 2g q8h day #2 (2) Acute urinary tract infection: Code(s): N39.0 - Urinary tract infection, site not specified Status: Acute Assessment and Plan: UCX pansensitive pseudomonas. Continue cefepime. (3) Acute urinary retention: Code(s): R33.8 - Other retention of urine Status: Acute Assessment and Plan: Continue kothari. (4) Transverse myelitis: Code(s): G37.3 - Acute transverse myelitis in demyelinating disease of central nervous system Status: Acute Assessment and Plan: New worsening of weakness. MRI from previous hospitalization on 08/22/22 showed Thoracic MR showing increased signal intensity in the spinal cord from T1 to T9. MRI + LP were consistent with transverse myelitis assumed to be due to COVID19 as other studies remained negative throughout the hospitalization. New MRI 09/16/22 shows patchy areas of ill defined increased T2 weighted signals. Had long discussion with patient and who had many questions about transverse myelitis, plasmapheresis, steroids from his previous hospitalization. All questions were answered. Discussed with Neurology who will offer the patient steroids versus plasmapheresis. If chooses plasma plasmapheresis, will need transfer to another facility. -Appreciate recommendations from Neurology -Continue physical and occupational therapy 09/20/2022 interval history: patient with a transverse myelitis and worsening weakness seen by Neurology patient agreed start high-dose steroid and patient is currently taking methylprednisone 500 mg b.i.d. scheduled for 5 days today today 3. Patient states is feeling little better since start of the steroid, patient states is unable to feel his lower extremities, concern about his blood glucose added lantus 5u qd will continue to monitor, patient is not interested in plasmapheresis, patient will continue to work with physical therapy, patient also found to have UTI with Pseudomonas being treated with Cefepime and end date is FridaySeptember 23, patient clinical symptoms are not improving as much as patient is unable to feed his lower extremity and has difficulty with ADLs, continue to monitor further recommendation to follow. Patient mother is present in the room, he stats if he can do his ADL without assistance, he would like to go home. Subjective Date/time seen: 09/20/22 11:50 09/20/2022 interval history: patient with a transverse myelitis and worsening weakness seen by Neurology patient agreed start high-dose steroid and patient is currently taking methylprednisone 500 mg b.i.d. scheduled for 5 days today today 3. Patient states is feeling little better since start of the steroid, patient states is unable to feel his lower extremities, concern about his blood glucose added lantus 5u qd will continue to monitor, patient is not interested in plasmapheresis, patient will continue to work with physical therapy, patient also found to have UTI with Pseudomonas being treated with Cefepime and end date is FridaySeptember 23, patient clinical symptoms are not improving as much as patient is unable to feed his lower extremity and has difficulty with ADLs, continue to monitor further recommendation to follow. Patient mother is present in the room, he stats if he can do his ADL without assistance, he would like to go home. Review of Systems Constitutional: Constitutional: Denies chills and Reports weakness Exam Narrative: Patient is comfortable, NAD HEENT: eyes are clear and none icteric LUNGS: normal respiratory effort ABD: not distended Lower extremities: no
[2022-09-20 12:26] LABS: Glucose Point of Care 135 mg/dl (65-105)
[2022-09-20 14:24] VITALS: BP 100/59; PULSE 76; RESP 16; TEMP 36.5; O2SAT 95
[2022-09-20 17:06] LABS: Glucose Point of Care 130 mg/dl (65-105)
[2022-09-20 19:59] VITALS: BP 105/69; PULSE 87; RESP 14; TEMP 36.8; O2SAT 97
[2022-09-20] MEDS: INSULIN GLARGINE (*BKC) 100 UNITS/ML SUB-Q (20:49)
[2022-09-20] MEDS: DOCUSATE SODIUM 100 MG CAPSULE PO (20:50)
[2022-09-20 21:13] LABS: Glucose Point of Care 193 mg/dl (65-105)
[2022-09-20] MEDS: MELATONIN 3 MG TABLET PO (21:34)
[2022-09-21 05:13] VITALS: BP 115/69; PULSE 80; RESP 16; TEMP 36.6; O2SAT 98
[2022-09-21 06:21] LABS: Hematocrit 34.9 % (42.0-52.0); Hemoglobin 11.9 g/dL (14.0-18.0); Mean Corpuscular HGB Conc 34.1 g/dl (32-36); Mean Corpuscular Hemoglobin 30.4 pg (26-34); Mean Corpuscular Volume 89.3 fl (80-100); Mean Platelet Volume 9.2 fl (7.4-10.4); Platelet Count Result 429 k/mm3 (150-375); Red Blood Count 3.91 M/mm3 (4.6-6.20); Red Cell Distribution Width 13.2 % (11.5-14.5); White Blood Count 19.4 K/mm3 (4.5-10.0)
[2022-09-21 06:37] LABS: Anion Gap 8 mmol/L (8-16); Blood Urea Nitrogen 21 mg/dL (9-20); Calcium 8.5 mg/dL (8.4-10.2); Carbon Dioxide 28 mmol/L (22-30); Chloride 100 mmol/L (98-107); Estimated CRCL calculation 85 ml/min; Estimated Glomerular Filt Rate > 60; Glucose 116 mg/dL (65-110); Sodium 136 mmol/L (137-145)
[2022-09-21 08:46] LABS: Glucose Point of Care 120 mg/dl (65-105)
[2022-09-21] MEDS: methylPREDNISolone SOD SUCC 500 MG in DEXTROSE 5% 100 ML 200 MG IVPB ×2 (08:59→21:15)
[2022-09-21] MEDS: FLUTICASONE PROPIONATE 0.05% NA SPR 16 GM BTL (*BKC) 1 SPRAY NASAL ×2 (08:59→21:15)
[2022-09-21] MEDS: LORATADINE 10 MG TABLET PO (08:59)
[2022-09-21] MEDS: PANTOPRAZOLE 40 MG TABLET PO ×2 (09:00→21:16)
[2022-09-21] MEDS: ENOXAPARIN 40 MG/0.4 ML SYRINGE SUB-Q (09:00)
--- NOTE | 2022-09-21 10:55 | PM.IMPN ---
Progress Note: A&P Assessment and Plan (1) Sepsis: Code(s): A41.9 - Sepsis, unspecified organism Status: Acute Assessment and Plan: CT of the lumbar spine and abdomen showed severe lumbar spondylosis and bladder wall thickening. UCX pansensitive pseudomonas. Leukocytosis downtrending. -Cefepime 2g q8h day #2 (2) Acute urinary tract infection: Code(s): N39.0 - Urinary tract infection, site not specified Status: Acute Assessment and Plan: UCX pansensitive pseudomonas. Continue cefepime. (3) Acute urinary retention: Code(s): R33.8 - Other retention of urine Status: Acute Assessment and Plan: Continue kothari. (4) Transverse myelitis: Code(s): G37.3 - Acute transverse myelitis in demyelinating disease of central nervous system Status: Acute Assessment and Plan: New worsening of weakness. MRI from previous hospitalization on 08/22/22 showed Thoracic MR showing increased signal intensity in the spinal cord from T1 to T9. MRI + LP were consistent with transverse myelitis assumed to be due to COVID19 as other studies remained negative throughout the hospitalization. New MRI 09/16/22 shows patchy areas of ill defined increased T2 weighted signals. Had long discussion with patient and who had many questions about transverse myelitis, plasmapheresis, steroids from his previous hospitalization. All questions were answered. Discussed with Neurology who will offer the patient steroids versus plasmapheresis. If chooses plasma plasmapheresis, will need transfer to another facility. -Appreciate recommendations from Neurology -Continue physical and occupational therapy 09/21/2022 interval history: patient with a transverse myelitis and worsening weakness seen by Neurology patient agreed start high-dose steroid and patient is currently taking methylprednisone 500 mg b.i.d. scheduled for 5 days today today 3. Patient states is feeling little better since start of the steroid, patient states is unable to feel his lower extremities, neurologist does not see significant improvement, concern about his blood glucose added lantus 5u qd will continue to monitor, patient is not interested in plasmapheresis, patient will continue to work with physical therapy, patient also found to have UTI with Pseudomonas being treated with Cefepime and end last date is FridaySeptember 23, patient clinical symptoms are not improving as much as patient is unable to feel his lower extremity and has difficulty with ADLs, continue to monitor further recommendation to follow. P he stats if he can do his ADL without assistance, he would like to go home. Subjective Date/time seen: 09/21/22 10:55 09/21/2022 interval history: patient with a transverse myelitis and worsening weakness seen by Neurology patient agreed start high-dose steroid and patient is currently taking methylprednisone 500 mg b.i.d. scheduled for 5 days today today 3. Patient states is feeling little better since start of the steroid, patient states is unable to feel his lower extremities, neurologist does not see significant improvement, concern about his blood glucose added lantus 5u qd will continue to monitor, patient is not interested in plasmapheresis, patient will continue to work with physical therapy, patient also found to have UTI with Pseudomonas being treated with Cefepime and end last date is FridaySeptember 23, patient clinical symptoms are not improving as much as patient is unable to feel his lower extremity and has difficulty with ADLs, continue to monitor further recommendation to follow. P he stats if he can do his ADL without assistance, he would like to go home. Review of Systems Constitutional: Constitutional: Denies chills and Reports weakness Exam Narrative: Patient is comfortable, NAD HEENT: eyes are clear and none icteric LUNGS: normal respiratory effort ABD: not d
[2022-09-21 12:03] LABS: Glucose Point of Care 158 mg/dl (65-105)
[2022-09-21 14:00] VITALS: BP 104/65; PULSE 72; RESP 16; TEMP 36.6; O2SAT 95
[2022-09-21 17:22] LABS: Glucose Point of Care 210 mg/dl (65-105)
[2022-09-21] MEDS: INSULIN ASPART (*BKC) 100 UNITS/ML SUB-Q (17:27)
[2022-09-21 20:04] LABS: Glucose Point of Care 206 mg/dl (65-105)
[2022-09-21] MEDS: INSULIN GLARGINE (*BKC) 100 UNITS/ML SUB-Q (21:10)
[2022-09-21] MEDS: MELATONIN 3 MG TABLET PO (21:51)
[2022-09-21 21:57] VITALS: BP 118/73; PULSE 87; RESP 16; TEMP 36.2; O2SAT 97
[2022-09-22 05:24] LABS: Hemoglobin 12.2 g/dL (14.0-18.0); Mean Corpuscular HGB Conc 33.9 g/dl (32-36); Mean Corpuscular Hemoglobin 30.2 pg (26-34); Mean Corpuscular Volume 89.1 fl (80-100); Mean Platelet Volume 8.9 fl (7.4-10.4); Platelet Count Result 433 k/mm3 (150-375); Red Blood Count 4.04 M/mm3 (4.6-6.20); Red Cell Distribution Width 13.1 % (11.5-14.5); White Blood Count 23.7 K/mm3 (4.5-10.0)
[2022-09-22 05:35] LABS: Anion Gap 12 mmol/L (8-16); Blood Urea Nitrogen 23 mg/dL (9-20); Calcium 8.3 mg/dL (8.4-10.2); Carbon Dioxide 29 mmol/L (22-30); Chloride 97 mmol/L (98-107); Estimated CRCL calculation 96 ml/min; Estimated Glomerular Filt Rate > 60; Glucose 131 mg/dL (65-110); Potassium 4.3 mmol/L (3.4-5.0); Sodium 138 mmol/L (137-145)
[2022-09-22 06:00] VITALS: BP 117/64; PULSE 64; RESP 20; TEMP 36.4; O2SAT 98
[2022-09-22 08:39] LABS: Glucose Point of Care 119 mg/dl (65-105)
[2022-09-22] MEDS: FLUTICASONE PROPIONATE 0.05% NA SPR 16 GM BTL (*BKC) 1 SPRAY NASAL ×2 (08:41→21:12)
[2022-09-22] MEDS: LORATADINE 10 MG TABLET PO (08:41)
[2022-09-22] MEDS: ENOXAPARIN 40 MG/0.4 ML SYRINGE SUB-Q (08:41)
[2022-09-22] MEDS: PANTOPRAZOLE 40 MG TABLET PO ×2 (08:41→21:06)
[2022-09-22] MEDS: methylPREDNISolone SOD SUCC 500 MG in DEXTROSE 5% 100 ML 200 MG IVPB (08:41)
--- NOTE | 2022-09-22 11:32 | PM.IMPN ---
Progress Note: A&P Assessment and Plan (1) Sepsis: Code(s): A41.9 - Sepsis, unspecified organism Status: Acute Assessment and Plan: CT of the lumbar spine and abdomen showed severe lumbar spondylosis and bladder wall thickening. UCX pansensitive pseudomonas. Leukocytosis downtrending. -Cefepime 2g q8h day #2 (2) Acute urinary tract infection: Code(s): N39.0 - Urinary tract infection, site not specified Status: Acute Assessment and Plan: UCX pansensitive pseudomonas. Continue cefepime. (3) Acute urinary retention: Code(s): R33.8 - Other retention of urine Status: Acute Assessment and Plan: Continue kothari. (4) Transverse myelitis: Code(s): G37.3 - Acute transverse myelitis in demyelinating disease of central nervous system Status: Acute Assessment and Plan: New worsening of weakness. MRI from previous hospitalization on 08/22/22 showed Thoracic MR showing increased signal intensity in the spinal cord from T1 to T9. MRI + LP were consistent with transverse myelitis assumed to be due to COVID19 as other studies remained negative throughout the hospitalization. New MRI 09/16/22 shows patchy areas of ill defined increased T2 weighted signals. Had long discussion with patient and who had many questions about transverse myelitis, plasmapheresis, steroids from his previous hospitalization. All questions were answered. Discussed with Neurology who will offer the patient steroids versus plasmapheresis. If chooses plasma plasmapheresis, will need transfer to another facility. -Appreciate recommendations from Neurology -Continue physical and occupational therapy 09/22/2022 interval history: patient with a transverse myelitis and worsening weakness seen by Neurology patient agreed start high-dose steroid and patient is currently taking methylprednisone 500 mg b.i.d. scheduled for 5 days and today is 5th day and patient will complete the course, Patient states is feeling little better since start of the steroid, patient states is now able to feel his lower extremities, neurologist does not see significant improvement, concern about his blood glucose added lantus 5u qd will continue to monitor, patient is not interested in plasmapheresis, patient will continue to work with physical therapy, patient also found to have UTI with Pseudomonas being treated with Cefepime and end last date is FridaySeptember 23, patient clinical symptoms are somewhat improving as much as patient is able to feel his lower extremity and still has difficulty with ADLs, will continue to monitor and further recommendation to follow. he stats if he can do his ADL without assistance, he would like to go home. Subjective Date/time seen: 09/22/22 11:32 09/22/2022 interval history: patient with a transverse myelitis and worsening weakness seen by Neurology patient agreed start high-dose steroid and patient is currently taking methylprednisone 500 mg b.i.d. scheduled for 5 days and today is 5th day and patient will complete the course, Patient states is feeling little better since start of the steroid, patient states is now able to feel his lower extremities, neurologist does not see significant improvement, concern about his blood glucose added lantus 5u qd will continue to monitor, patient is not interested in plasmapheresis, patient will continue to work with physical therapy, patient also found to have UTI with Pseudomonas being treated with Cefepime and end last date is FridaySeptember 23, patient clinical symptoms are somewhat improving as much as patient is able to feel his lower extremity and still has difficulty with ADLs, will continue to monitor and further recommendation to follow. he stats if he can do his ADL without assistance, he would like to go home. Review of Systems Constitutional: Constitutional: Denies chills and Reports weakness
[2022-09-22 12:24] LABS: Glucose Point of Care 140 mg/dl (65-105)
[2022-09-22 13:10] VITALS: BP 122/69; PULSE 77; RESP 16; TEMP 36.6; O2SAT 94
[2022-09-22 17:23] LABS: Glucose Point of Care 130 mg/dl (65-105)
[2022-09-22 20:57] LABS: Glucose Point of Care 195 mg/dl (65-105)
[2022-09-22] MEDS: polyethylene glycoL 3350 17 GM POWD.PACK PO (21:06)
[2022-09-22] MEDS: MELATONIN 3 MG TABLET PO (21:41)
[2022-09-22 21:48] VITALS: BP 118/68; PULSE 81; RESP 18; TEMP 36.4; O2SAT 96
[2022-09-23 06:00] VITALS: BP 119/69; PULSE 68; RESP 18; TEMP 36.1; O2SAT 96
[2022-09-23 06:40] LABS: Hemoglobin 12.4 g/dL (14.0-18.0); Mean Corpuscular HGB Conc 33.5 g/dl (32-36); Mean Corpuscular Volume 89.6 fl (80-100); Mean Platelet Volume 9.1 fl (7.4-10.4); Platelet Count Result 425 k/mm3 (150-375); Red Blood Count 4.13 M/mm3 (4.6-6.20); Red Cell Distribution Width 13.4 % (11.5-14.5); White Blood Count 27.8 K/mm3 (4.5-10.0)
[2022-09-23 06:53] LABS: Anion Gap 11 mmol/L (8-16); Blood Urea Nitrogen 22 mg/dL (9-20); Calcium 8.3 mg/dL (8.4-10.2); Carbon Dioxide 29 mmol/L (22-30); Chloride 97 mmol/L (98-107); Estimated CRCL calculation 97 ml/min; Estimated Glomerular Filt Rate > 60; Glucose 87 mg/dL (65-110); Potassium 4.1 mmol/L (3.4-5.0); Sodium 137 mmol/L (137-145)
[2022-09-23 08:42] LABS: Glucose Point of Care 92 mg/dl (65-105)
[2022-09-23] MEDS: PANTOPRAZOLE 40 MG TABLET PO (08:42)
[2022-09-23] MEDS: ENOXAPARIN 40 MG/0.4 ML SYRINGE SUB-Q (08:42)
[2022-09-23] MEDS: LORATADINE 10 MG TABLET PO (08:42)
[2022-09-23] MEDS: FLUTICASONE PROPIONATE 0.05% NA SPR 16 GM BTL (*BKC) 1 SPRAY NASAL (08:43)
--- NOTE | 2022-09-23 09:27 | PCNWS ---
Weekly nutritional screen. Patient is tolerating current Regular diet with adequate intake at 75-100% most meals. No weight loss reported. No nutritional needs at this time.
[2022-09-23 12:17] LABS: Glucose Point of Care 125 mg/dl (65-105)
--- NOTE | 2022-09-23 13:08 | PM.DS ---
DS: Admitting Diagnosis Discharge Date 09/23/2022 Admitting Diagnosis fever DS: Discharge Diagnosis Discharge Diagnosis (1) Sepsis: Code(s): A41.9 - Sepsis, unspecified organism Status: Acute Assessment and Plan: CT of the lumbar spine and abdomen showed severe lumbar spondylosis and bladder wall thickening. UCX pansensitive pseudomonas. Leukocytosis downtrending. -Cefepime 2g q8h day #2 (2) Acute urinary tract infection: Code(s): N39.0 - Urinary tract infection, site not specified Status: Acute Assessment and Plan: UCX pansensitive pseudomonas. Continue cefepime. (3) Acute urinary retention: Code(s): R33.8 - Other retention of urine Status: Acute Assessment and Plan: Continue kothari. (4) Transverse myelitis: Code(s): G37.3 - Acute transverse myelitis in demyelinating disease of central nervous system Status: Acute Assessment and Plan: New worsening of weakness. MRI from previous hospitalization on 08/22/22 showed Thoracic MR showing increased signal intensity in the spinal cord from T1 to T9. MRI + LP were consistent with transverse myelitis assumed to be due to COVID19 as other studies remained negative throughout the hospitalization. New MRI 09/16/22 shows patchy areas of ill defined increased T2 weighted signals. Had long discussion with patient and who had many questions about transverse myelitis, plasmapheresis, steroids from his previous hospitalization. All questions were answered. Discussed with Neurology who will offer the patient steroids versus plasmapheresis. If chooses plasma plasmapheresis, will need transfer to another facility. -Appreciate recommendations from Neurology -Continue physical and occupational therapy 09/22/2022 interval history: patient with a transverse myelitis and worsening weakness seen by Neurology patient agreed start high-dose steroid and patient is currently taking methylprednisone 500 mg b.i.d. scheduled for 5 days and today is 5th day and patient will complete the course, Patient states is feeling little better since start of the steroid, patient states is now able to feel his lower extremities, neurologist does not see significant improvement, concern about his blood glucose added lantus 5u qd will continue to monitor, patient is not interested in plasmapheresis, patient will continue to work with physical therapy, patient also found to have UTI with Pseudomonas being treated with Cefepime and end last date is FridaySeptember 23, patient clinical symptoms are somewhat improving as much as patient is able to feel his lower extremity and still has difficulty with ADLs, will continue to monitor and further recommendation to follow. he stats if he can do his ADL without assistance, he would like to go home. DS: Summary Hospital Course Reason for hospitalization: Fever. Narrative: This is a 61-year-old male smoker who presented to the emergency department via EMS from [facility] for evaluation of of fever. He is known to the hospitalist service with a recent admission last month at which time he was admitted with lower extremity weakness. LP and MRI findings were suspicious for transverse or viral myelitis related to recent COVID infection and he was treated with 5 days of high-dose Solu-Medrol; he declined plasmapheresis. He has been at rehab since his discharge on August 29 and he has been doing quite well (still unable to walk but is able to transfer with slide board) and in fact he is supposed to be discharged home tomorrow. 24 hours ago he had his Kothari catheter removed and according to the patient he has been urinating 300 mL of urine at a time. This morning however he had difficulties urinating and he reports that he was feeling extremely weak with nausea, decreased appetite, and shakes. He attributes these symptoms to the fact that he was recently started on gabap
[2022-09-23 14:00] VITALS: BP 118/63; PULSE 68; RESP 18; TEMP 36.6; O2SAT 95
== END 2022-09-23 16:15 | DRG 698 ==
LOC: ANHED 16:47 → ANH2MED 18:02
PROVIDERS: Physician Assistant; Admitting Provider Chiropractor; Emergency Provider Emergency Medicine; Visit Provider Family Medicine
DX: T83.511A Infection and inflammatory reaction due to indwelling urethral catheter, initial encounter (principal); A41.9 Sepsis, unspecified organism; G37.3 Acute transverse myelitis in demyelinating disease of central nervous system; N39.0 Urinary tract infection, site not specified; U09.9 Post COVID-19 condition, unspecified; B96.5 Pseudomonas (aeruginosa) (mallei) (pseudomallei) as the cause of diseases classified elsewhere; R33.8 Other retention of urine; F17.210 Nicotine dependence, cigarettes, uncomplicated; Z90.49 Acquired absence of other specified parts of digestive tract
CPT/HCPCS: 36415; 72131; 72156; 72157; 72158; 74177; 80048; 80053; 81001; 82948; 83605; 83735; 85025; 85027; 85652; 86140; 87040; 87077; 87086; 87088; 87186; 96361; 96365; 96372; 96375; 97110; 97112; 97163; 97166; 97530; 97535; 99285; A9270; A9577; G0378; J0692; J0696; J1170; J1650; J1815; J2060; J2405; J2930; J7030; Q9967

== ENCOUNTER 2022-10-03 14:14 | Emergency (ER) | payer MEDICARE, SELFPAY ==
[2022-10-03] VITALS (19 sets, daily range): BP systolic 98–134; BP diastolic 67–89; PULSE 84; RESP 16; TEMP 37.2; O2SAT 95–100
[2022-10-03 15:04] LABS: Appearance Urine Clear (Clear); Bilirubin Urine Negative (Negative); Blood Urine Negative (Negative); Color Urine Yellow (Yellow); Glucose Urine UA Negative (Negative); Ketones Urine Negative (Negative); Leukocyte Esterase Ur Negative LEU/UL (Negative); Nitrate Urine Negative (Negative); Protein Urine Negative (Negative); Urobilinogen Urine 0.2 mg/dL (<2.0); pH Urine 5.5 (5.0-9.0)
[2022-10-03 15:06] LABS: Add Urine Microscopic? NO
--- NOTE | 2022-10-03 15:14 | ED.MALEGU ---
HPI - Male Genitourinary General Chief complaint: Urogenital-Male Stated complaint: urinary retention- cath removed 2 days ago Time Seen by Provider: 10/03/22 14:22 History of Present Illness HPI Narrative: Patient is a 61-year-old male who presents to the ER with concerns of urinary retention. Patient currently bedbound due to complications of COVID. He suffered transverse myelitis that is also left him with a neurogenic bladder. He had a Spann catheter removed 2 days ago. He is currently on antibiotics for possible UTI. He reports he has been having output of 200 to 300 mL of urine about every 4 hours. He has been able to urinate on his own. He then had decreased frequency and was feeling full. He came to the ER and finally felt like he could urinate but then had overflow incontinence on himself. Patient has some chronic numbness and tingling arms and legs related to his transverse myelitis. He still has chronic weakness to his lower extremities. Related Data Home Medications Medication Instructions Recorded Confirmed acetaminophen 325 mg tablet 650 mg PO TID PRN Pain 09/15/22 09/15/22 (Tylenol) albuterol sulfate 90 mcg/actuation 90 mcg inhalation Q6H PRN 09/15/22 09/15/22 aerosol inhaler Shortness Of Breath bisacodyl 10 mg rectal suppository 10 mg RECTAL DAILY PRN Constipation 09/15/22 09/15/22 calcium carbonate 200 mg calcium 200 mg PO QID PRN Indigestion 09/15/22 09/15/22 (500 mg) chewable tablet enoxaparin 40 mg/0.4 mL 40 mg subcut DAILY 09/15/22 09/15/22 subcutaneous syringe (Lovenox) gabapentin 300 mg capsule 300 mg PO TID 09/15/22 09/15/22 melatonin 3 mg tablet 3 mg PO HS 09/15/22 09/15/22 ondansetron HCl 4 mg tablet 4 mg PO Q6H 09/15/22 09/15/22 polyethylene glycol 3350 17 gram 17 g PO QAM 09/15/22 09/15/22 oral powder packet Allergies Allergy/AdvReac Type Severity Reaction Status Date / Time No Known Allergies Allergy Verified 09/15/22 14:06 Review of Systems Review of Systems: All systems reviewed & are unremarkable except as noted in HPI and below Constitutional: Constitutional: Denies chills Gastrointestinal: Gastrointestinal: Denies abdominal pain, Denies nausea and Denies vomiting Genitourinary: Genitourinary: Reports oliguria, Denies dysuria and Denies urinary frequency Musculoskeletal: Musculoskeletal: Denies back pain and Denies arthralgias Neurologic: Reports focal weakness (Chronic) and Reports numbness (Chronic) [facility] Past Medical History Medical History Chronic back pain Chronic hip pain COVID (07/2022) Tobacco abuse Surgical History Surgical History History of appendectomy History of hand surgery Left index finger surgery. 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 He has smoked a pack of cigarettes a day for 40 years but is not smoked since his recent hospitalization in July 2022. He drinks a 5th of Yan Erazo in a week. Uses marijuana occasionally. He is and lives with his of nearly 40 years in [place]. They have 3 children. he designates his , Sharri Justin, as his surrogate decision maker knee wishes to be a full code. Smoking packs per day: 1 Smoking cigarettes per day: 20.0 Years smoked: 40 Smoking pack-years: 40.00 Smoking status: Current every day smoker Tobacco type: cigarettes Second hand tobacco smoke exposure: No Smoking end date: 08/21/22 Concepcion
== END 2022-10-03 17:51 | disposition home or self-care (01) ==
PROVIDERS: Emergency Provider Emergency Medicine; PCP Family Medicine
DX: R33.9 Retention of urine, unspecified (principal); U09.9 Post COVID-19 condition, unspecified; G37.3 Acute transverse myelitis in demyelinating disease of central nervous system; Z74.01 Bed confinement status; Z87.891 Personal history of nicotine dependence
CPT/HCPCS: 81003; 99283

== ENCOUNTER 2024-11-27 13:28 | Inpatient (IN) | payer MEDICARE, MEDICAID, SELFPAY ==
--- NOTE | ~2024-11-27 | CT_ITS ---
CT chest abdomen pelvis w con Ordering provider: Nakia Alcantar PA-C History: 63 years Male with . cough, URI, abd pain, N?V . Comparison: September 15, 2023 Technique: CT chest with IV contrast. CT abdomen and pelvis CT abdomen and pelvis with IV and with or al contrast. Radiation reduction technique utilized.The dose-length product was 723.94 mGy-cm. 100 mL Omnipaque 350 was given IV. FINDINGS: CHEST: --VISUALIZED THORACIC INLET: Normal. --MEDIASTINUM: Aorta/coronary arteries: Mild atheromatous disease. Heart/other: The heart is not enlarged. Lymph nodes: Right paratracheal lymph node is seen measuring 1.8 cm. Smaller lymph nodes are also see n. Prevascular small lymph nodes are also noted. Right hilar lymph node is noted. --LUNGS: No pulmonary nodules or masses. No effusions. No pneumothorax. Bilateral basal pneumonia is noted posteriorly. Multiple areas of tree-in-bud appearance is seen in both upper and lower lobes sug gestive of post infection changes. --MUSCULOSKELETAL: Soft tissues: The superficial soft tissues are normal. Bones: Age appropriate degenerative changes of the spine. No suspicious bony lytic or sclerotic lesio ns. ABDOMEN/PELVIS: --MUSCULOSKELETAL: Bones: Age appropriate degenerative changes of the spine. No suspicious bony lytic or sclerotic lesio ns. Superficial soft tissues: The superficial soft tissues are normal. --UPPER ABDOMINAL ORGANS: Liver: Multiple tiny hypodensities suggestive of small cysts. Gallbladder: Normal. Spleen: Normal. Stomach/duodenum: Small sliding hiatus hernia. Pancreas: Normal. Adrenals: Normal. Kidneys: Tiny cyst in the left kidney midpole. --PELVIC ORGANS: The bladder is normal. No bladder stones. --BOWEL AND MESENTERY: Colon: No evidence of diverticulitis.. The appendix is not demonstrated most likely surgically remove d. Small Bowel: Normal. No obstruction. Peritoneum/mesentery: No free air or free fluid. No mesenteric lymphadenopathy. --RETROPERITONEUM: Mild atheromatous disease of the abdominal aorta. No retroperitoneal lymphadenop athy. IMPRESSION: CHEST: 1. Bilateral basal pneumonia. 2. Multiple bilateral areas of tree-in-bud appearance suggestive of post infection changes. 3. Enlarged lymph node in the right paratracheal area near to the bety. ABDOMEN/PELVIS: 1. Multiple hypodense lesions in the liver are unchanged from previous examination. 2. No evidence of appendicitis, diverticulitis or intestinal obstruction. 3. Small sliding hiatus hernia. Reviewed, dictated and finalized at location A. SUPERINTENDENT IMPRESSION: CHEST: 1. Bilateral basal pneumonia. 2. Multiple bilateral areas of tree-in-bud appearance suggestive of post infec tion changes. 3. Enlarged lymph node in the right paratracheal area near to the bety. ABDOMEN/PELVIS: 1. Multiple hypodense lesions in the liver are unchanged from previous examina tion. 2. No evidence of appendicitis, diverticulitis or intestinal obstruction. 3. Small sliding hiatus hernia.
[2024-11-27 13:54] VITALS: BP 143/89; PULSE 93; RESP 18; TEMP 36.6; O2SAT 92
[2024-11-27 18:28] LABS: Basophils Absolute Auto 0.1 K/mm3 (0.0-0.1); Basophils Percent Auto 0.6 % (0.2-1.2); Eosinophils Absolute Auto 0.1 K/mm3 (0-0.3); Eosinophils Percent Auto 0.8 % (0-4.4); Hematocrit 43.6 % (42.0-52.0); Hemoglobin 14.9 g/dL (14.0-18.0); Immature Granulocyte Percent A 1.7 % (0-0.5); Lymphocytes Absolute Auto 1.69 K/mm3 (0.9-3.2); Lymphocytes Percent Auto 14.1 % (18.3-44.2); Mean Corpuscular HGB Conc 34.2 g/dl (32-36); Mean Corpuscular Hemoglobin 29.4 pg (26-34); Mean Platelet Volume 9.5 fl (7.4-10.4); Monocytes Absolute Auto 1.8 K/mm3 (0.1-0.6); Monocytes Percent Auto 14.9 % (2.6-8.5); Neutrophils Absolute Auto 8.1 K/mm3 (1.3-6.7); Neutrophils Percent Auto 67.9 % (45.5-73.1); Platelet Count Result 310 k/mm3 (150-375); Red Blood Count 5.07 M/mm3 (4.6-6.20); Red Cell Distribution Width 13.3 % (11.5-14.5)
[2024-11-27 18:35] LABS: Add Urine Microscopic? YES; Appearance Urine Clear (Clear); Bacteria Urine None Seen /hpf; Bilirubin Urine Negative (Negative); Blood Urine Negative (Negative); Color Urine Dark Yellow (Yellow); Glucose Urine UA Negative (Negative); Ketones Urine 2+ mg/dL (Negative); Leukocyte Esterase Ur Negative LEU/UL (Negative); Mucus Urine Present /lpf; Need Manual Microscopic Reviewed; Nitrate Urine Negative (Negative); Non Pathogenic Casts 0-2; Protein Urine 2+ mg/dL (Negative); Specific Grav Ur 1.033 (1.001-1.035); Squamous Epithelial Cell Urine None Seen /hpf (Few); WBC Urine 0-5 /hpf (0-3)
[2024-11-27 18:51] LABS: Alanine Aminotransferase 28 U/L (6-50); Albumin Level 4.7 g/dL (3.5-5.1); Alkaline Phosphatase 130 U/L (38-126); Anion Gap 9 mmol/L (4-12); Aspartate Amino Transferase 23 U/L (17-59); Bilirubin,Total 0.8 mg/dL (0.2-1.3); Blood Urea Nitrogen 19 mg/dL (9-20); Calcium 9.7 mg/dL (8.4-10.2); Carbon Dioxide 31 mmol/L (22-30); Chloride 96 mmol/L (98-107); Estimated CRCL calculation 83 ml/min; Estimated Glomerular Filt Rate > 60; Glucose 132 mg/dL (65-110); Lipase 50 U/L (23-300); Magnesium 2.5 mg/dL (1.6-2.3); Potassium 3.3 mmol/L (3.4-5.0); Sodium 136 mmol/L (137-145)
[2024-11-27 18:52] VITALS: BP 164/90; PULSE 103; RESP 16; O2SAT 91
[2024-11-27 19:05] LABS: Influenza A QL RT-PCR Negative (Negative); Influenza B QL RT-PCR Negative (Negative); RSV RNA, RT-PCR Negative (Negative); SARS-CoV-2 RNA PCR Negative (Negative)
[2024-11-27] MEDS: SODIUM CHLORIDE 0.9% IV 1,000 ML 999 ML IV CONT (19:05)
--- NOTE | 2024-11-27 19:29 | ED_ITS ---
HPI - Abdominal Pain General Chief Complaint: Abdominal Pain Stated Complaint: abd pain Time Seen by Provider: 11/27/24 18:16 Source: patient Mode of arrival: ambulatory Limitations: no limitations History of Present Illness HPI narrative: Patient is a 63-year-old male, with PMH of transverse myelitis 28 months ago, who presents the ED with report of nausea, vomiting, URI sx's. Patient reports he has been sick since last Friday with diffuse abdominal cramping/spasms. He notes he has frequent muscle spasms related to his transverse myelitis, but these seemed more severe and persistent. Reports having nausea, vomiting, unable to keep down any food or drink. Has had a couple episodes of diarrhea, denies rectal bleeding or melena. Also reports over last couple of days after being exposed to his son, he has had cough and congestion, sinus pressure. Denies fevers. Denies shortness breath. Denies chest pain Related Data Home Medications ?Medication ?Instructions ?Recorded ?Confirmed ?Last Taken ?Type acetaminophen 325 mg tablet 650 mg PO TID PRN Pain 09/15/22 09/15/22 Unknown History (Tylenol) albuterol sulfate 90 mcg/actuation 90 mcg inhalation Q6H PRN 09/15/22 09/15/22 Unknown History aerosol inhaler Shortness Of Breath bisacodyl 10 mg rectal suppository 10 mg RECTAL DAILY PRN Constipation 09/15/22 09/15/22 Unknown History calcium carbonate 200 mg PO QID PRN Indigestion 09/15/22 09/15/22 Unknown History enoxaparin 40 mg/0.4 mL 40 mg subcut DAILY 09/15/22 09/15/22 09/15/22 History subcutaneous syringe (Lovenox) gabapentin 300 mg capsule 300 mg PO TID 09/15/22 09/15/22 Unknown History melatonin 3 mg tablet 3 mg PO HS 09/15/22 09/15/22 Unknown History ondansetron HCl 4 mg tablet 4 mg PO Q6H 09/15/22 09/15/22 Unknown History polyethylene glycol 3350 17 gram 17 g PO QAM 09/15/22 09/15/22 Unknown History oral powder packet Allergies Allergy/AdvReac Type Severity Reaction Status Date / Time No Known Allergies Allergy Verified 09/15/22 14:06 Review of Systems 2 Review of Systems: All systems reviewed & are unremarkable except as noted in HPI. All systems reviewed & are unremarkable except as noted in HPI and below [facility] Past Medical History Medical History (Updated 11/27/24 @ 23:52 by Nakia Alcantar PA-C) Transverse myelitis Chronic back pain Chronic hip pain Tobacco abuse COVID (07/2022) Surgical History Surgical History History of hand surgery Left index finger surgery. 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 He has smoked a pack of cigarettes a day for 40 years but is not smoked since his recent hospitalization in July 2022. He drinks a 5th of [employer] in a week. Uses marijuana occasionally. He is and lives with his of nearly 40 years in [place]. They have 3 children. he designates his , Sharri Justin, as his surrogate decision maker knee wishes to be a full code. Smoking packs per day: 1 Smoking cigarettes per day: 20.0 Years smoked: 40 Smoking pack-years: 40.00 Smoking status: Current every day smoker Tobacco type: cigarettes Second hand tobacco smoke exposure: No Smoking end date: 08/21/22 Alcohol intake: current Drinks per week: 8 Substance use: current Substance use type: marijuana Last use: 08/17/2022 Lack of Transportation: No Lack of Food: Never True Current Housing: I Have Housing Concerned About Future Housing: No Difficulty Paying Gas/Electric Bills: No Difficulty Paying for Meds: No Currently Unemployed: No Education: High School Diploma/GED Difficulty w/ Childcare or Family Care: No Spiritual care concerns: No Exam 2 Narrative: GENERAL: Appears older than stated age, in mild acute distress. Actively dry heaving on exam. HEAD: Normocephalic, atraumatic. RESPIRATORY: Airway patent, respirations nonlabored. Diffuse rhonchi in bases bilaterally, worse in right lung. No wheezing. Occasional coughing on exam. CARDIOVASCULAR: Tachycardic with regular rhythm without murmurs, rubs, or gallops. ABDOMINAL: Soft, mild diffuse tenderness, no rebound, nondistended. Normoactive BS. MUSCULOSKELETAL: No gross deformities. SKIN: Warm, dry, normal color. NEURO: A&O X3. Speech clear. Cranial nerves II-XII grossly intact. No ataxic movements. PSYCHIATRIC: Appropriate mood and affect. Normal interaction. Course Vital Signs Vital signs: Vital Signs Temperature 97.8 F 11/27/24 13:54 Pulse Rate 93 11/27/24 13:54 Respiratory Rate 18 11/27/24 13:54 Blood Pressure 143/89 H 11/27/24 13:54 Pulse Oximetry 92 11/27/24 13:54 Temperature 98.1 F 11/27/24 19:45 Pulse Rate 95 11/27/24 22:08 Respiratory Rate 18 11/27/24 22:08 Blood Pressure 136/86 11/27/24 22:08 Pulse Oximetry 98 11/27/24 22:08 Oxygen Delivery Nasal Cannula 11/27/24 20:48 Oxygen Flow Rate 3 11/27/24 20:48 MDM - Abdominal Pain MDM Narrative Medical decision making narrative: Patient presented to ED with several day history of nausea, vomiting, abdominal pain/spasms, now with URI symptoms over the last couple of days. Patient tachycardic upon arrival. Actively dry heaving. He is afebrile here. CBC with white blood cell count of 12.0. Likely in part related to vomiting. CMP with potassium 3.3. Will replace. Stable kidney function. Normal anion gap. Normal bicarb. Mag within normal limits. Normal LFTs and lipase. UA with 2+ ketones, no signs of infection. Viral swabs are negative. CT scan of chest/abdomen/pelvis was obtained and showing bilateral lower lobe pneumonia, tree-in-bud appearance, chronic liver findings. Discussed lab and imaging findings with patient and at bedside. He is feeling improved with supportive therapy in fluids. He was however noted to be hypoxic on room air down to 86%. I witnessed this at bedside. He was placed on 3 L nasal cannula with improvement of oxygen saturations into the mid 90s. Patient denies previous oxygen requirement. He does report history of sleep apnea, but he was awake and speaking to me with the oxygen saturations in the 80s. Given this with bilateral pneumonia findings, Rocephin and azithromycin started in the ED. Blood cultures obtained. Patient will be admitted for further evaluation. Discussed case with Dr. Vivas, hospitalist, accepted patient for admission. Medical Records Attestation: I reviewed the patient's medical records. Lab Data Attestation: I reviewed the patient's lab results. 11/27/24 18:20 11/27/24 18:20 Labs: Lab Results 11/27/24 11/27/24 11/27/24 Range/Units 18:20 18:20 18:22 WBC 12.0 H (4.5-10.0) K/mm3 RBC 5.07 (4.6-6.20) M/mm3 Hgb 14.9 (14.0-18.0) g/dL Hct 43.6 (42.0-52.0) % MCV 86.0 (80-100) fl MCH 29.4 (26-34) pg MCHC 34.2 (32-36) g/dl RDW 13.3 (11.5-14.5) % Plt Count 310 (150-375) k/mm3 MPV 9.5 (7.4-10.4) fl Immature Gran % (Auto) 1.7 H (0-0.5) % Neut % (Auto) 67.9 (45.5-73.1) % Lymph % (Auto) 14.1 L (18.3-44.2) % Robertson % (Auto) 14.9 H (2.6-8.5) % Eos % (Auto) 0.8 (0-4.4) % Baso % (Auto) 0.6 (0.2-1.2) % Lymph # (Auto) 1.69 (0.9-3.2) K/mm3 Robertson # (Auto) 1.8 H (0.1-0.6) K/mm3 Eos # (Auto) 0.1 (0-0.3) K/mm3 Baso # (Auto) 0.1 (0.0-0.1) K/mm3 Abs Immat Gran (auto) 0.20 H (0.00-0.031) K/mm3 Absolute Neuts (auto) 8.1 H (1.3-6.7) K/mm3 Absolute Nucleated RBC 0.000 (0.0-0.012) K/mm3 Nucleated RBC % 0.0 (0.0-0.2) % Sodium 136 L (137-145) mmol/L Potassium 3.3 L (3.4-5.0) mmol/L Chloride 96 L (98-107) mmol/L Carbon Dioxide 31 H (22-30) mmol/L Anion Gap 9 (4-12) mmol/L BUN 19 (9-20) mg/dL Creatinine 0.80 (0.7-1.3) mg/dL Estim Creat Clear Calc 83 ml/min Estimated GFR > 60 (59 - ) Glucose 132 H (65-110) mg/dL Calcium 9.7 (8.4-10.2) mg/dL Magnesium 2.5 H Cancelled (1.6-2.3) mg/dL Total Bilirubin 0.8 (0.2-1.3) mg/dL AST 23 (17-59) U/L ALT 28 (6-50) U/L Alkaline Phosphatase 130 H (38-126) U/L Total Protein 9.0 H (6.3-8.2) g/dL Albumin 4.7 (3.5-5.1) g/dL Lipase 50 (23-300) U/L Urine Color Dark yellow (Yellow) Urine Appearance Clear (Clear) Urine pH 6.0 (5.0-9.0) Ur Specific [place] 1.033 (1.001-1.035) Urine Protein 2+ H (Negative) mg/dL Urine Glucose (UA) Negative (Negative) mg/dL Urine Ketones 2+ H (Negative) mg/dL Ur Blood (Man) Negative (Negative) Urine Nitrate Negative (Negative) Urine Bilirubin Negative (Negative) Urine Urobilinogen 1.0 (<2.0) mg/dL Add Ur Microanalysis Reviewed Leukocyte Esterase Rfl Negative (Negative) STEPHAN/UL Urine RBC 3-5 H (0-2) /hpf Urine WBC 0-5 (0-3) /hpf Ur Squamous Epith Cells None seen (Few) /hpf Urine Bacteria None seen /hpf Urine Casts 0-2 Urine Mucus Present /lpf Influenza A (RT-PCR) Negative (Negative) Influenza B (RT-PCR) Negative (Negative) RSV (RT-PCR) Negative (Negative) SARS-CoV-2 RNA (RT-PCR) Negative (Negative) Imaging Data Attestation: I personally reviewed and interpreted this imaging study as follows: Radiologist's impression: ITS Impressions Chest/Abdomen/Pelvis CT 11/27/24 20:00 IMPRESSION: CHEST: 1. Bilateral basal pneumonia. 2. Multiple bilateral areas of tree-in-bud appearance suggestive of post infection changes. 3. Enlarged lymph node in the right paratracheal area near to the bety. ABDOMEN/PELVIS: 1. Multiple hypodense lesions in the liver are unchanged from previous examination. 2. No evidence of appendicitis, diverticulitis or intestinal obstruction. 3. Small sliding hiatus hernia. ECG Data EKG #1: Attestation: I personally reviewed and interpreted this ECG as follows: ECG completion date: 11/27/24 ECG completion time: 23:02 normal rate (94), sinus rhythm, non-specific ST changes and other (short IL interval) Discharge Plan Discharge Clinical Impression: Gastroenteritis, Acute hypoxic respiratory failure Pneumonia Qualifiers: Pneumonia type: due to unspecified organism Laterality: bilateral Lung location: lower lobe of lung Qualified Code(s): J18.9 - Pneumonia, unspecified organism Patient Disposition: Still a Patient Condition: Stable Patient Language: Peruvian Prescriptions: No Action acetaminophen [Tylenol] 325 mg Tablet 650 mg PO TID PRN (Reason: Pain) bisacodyl 10 mg Suppository 10 mg RECTAL DAILY PRN (Reason: Constipation) calcium carbonate 200 mg calcium (500 mg) Tablet,Chewable 200 mg PO QID PRN (Reason: Indigestion) albuterol sulfate 90 mcg/actuation Hfa Aerosol Inhaler 90 mcg INHALATION Q6H PRN (Reason: Shortness Of Breath) polyethylene glycol 3350 17 gram Powder In Packet 17 g PO QAM ondansetron HCl 4 mg Tablet 4 mg PO Q6H melatonin 3 mg Tablet 3 mg PO HS gabapentin 300 mg Capsule 300 mg PO TID enoxaparin [Lovenox] 40 mg/0.4 mL Syringe 40 mg subcut DAILY pantoprazole 40 mg Tablet,Delayed Release (Dr/Ec) 40 mg PO Q12HR Qty: 60 0RF fluticasone propionate 50 mcg/actuation [place],Suspension 1 spray intranasal Q12HR Qty: 10 0RF loratadine 10 mg Tablet 10 mg PO QAM Qty: 30 0RF Follow-up/Referrals: Milly,Catia Denny MD [Primary Care Provider] -
[2024-11-27] MEDS: ONDANSETRON INJ 4 MG/2 ML VIAL IV PUSH (19:40)
[2024-11-27] MEDS: MORPHINE SULFATE (*CRX) 4 MG/ML INJ IV PUSH (19:41)
[2024-11-27] MEDS: DICYCLOMINE HCL INJ 20 MG/2 ML VIAL IM (19:41)
[2024-11-27 19:45] VITALS: BP 144/77; PULSE 105; RESP 15; TEMP 36.7; O2SAT 99
[2024-11-27 20:45] VITALS: O2SAT 86
[2024-11-27 20:48] VITALS: O2SAT 94
--- NOTE | 2024-11-27 20:50 | ECG_ITS ---
Test Date: 2024-11-27 23:02:13 Measurements Intervals Melvin Rate: 94 P: 70 NV: 119 QRS: 67 QRSD: 88 T: 63 QT: 350 QTc: 440 Interpretive Statements SINUS RHYTHM WITH SHORT NV INTERVAL No previous ECG available for comparison Electronically Signed On 12-01-2024 15:59:54 CASHIER OR CHECKER STOCK CLERK by Jose Abarca M.D.
[2024-11-27 22:08] VITALS: BP 136/86; PULSE 95; RESP 18; O2SAT 98
[2024-11-27] MEDS: AZITHROMYCIN 500 MG/NS 250 ML 500 MG/250 ML BAG 250 MG IVPB (22:58)
[2024-11-28] VITALS (19 sets, daily range): BP systolic 115–149; BP diastolic 67–89; PULSE 80–98; RESP 14–24; TEMP 36.7–37.3; O2SAT 90–99; BMI 25.4
[2024-11-28] MEDS: KCL 20 MEQ/SW 100 ML 100 ML 50 MEQ IVPB (00:04)
--- NOTE | 2024-11-28 01:35 | P.HP_ITS ---
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 The patient reports the symptoms started on November 22. He started with good cough that was initially dry, a mild sore throat, and abdominal spasms. He reports he has been having abdominal spasms on and off since he has been recovering from transverse myelitis. He reported that with the abdominal spasms he will a frequently it decreased appetite and dry heaves. Usually the knee spasms and dry heaves will only last for a few hours and then resolved. However, this time he continued to have some the muscle spasms in his lower abdomen and continued to have had him nausea and dry heaves. He initially had had no solid food since Friday but was still drinking about 16-32 oz of water the days. However the over the last 2 days he has only been able tolerate a few sips of water and may have drink a total of 2 cups over the last 2 days. He reports that since he is only been drinking liquids he really has not had much in the way of bowel movements. He reports that earlier today and the day before he did have a small amount of liquid her mushy stool with some urgency of bowel. He reports he was slightly incontinent due to being we cannot being noted to the bathroom fast enough. He reports that since he has been recovering from transverse myelitis he has made progress and is now ambulating with a cane. However he has been so weak and fatigued that he is basically stayed in bed all day for the last several days and only has gotten up to go to bathroom. Usually he is able to walk a couple of 100 ft a day and is able to get down the steps. He has been having some body aches but denies any fevers. He has been checking his temperatures. He reports that his cough has been progressively more productive and he is now having large amounts of dark green sputum. He does have a significant smoking history but has never been diagnosed with COPD. He usually does not wheeze but over the last 5 days has been wheezing significantly. He had initially been having some vomiting but after an initial vomiting he was having more dry heaves. His emesis was green/bilious in nature. Patient denies any known history of COPD but it sounds like he did have what was PFTs or at least an office spirometry 20 years ago. He does not use inhalers at home. In the ER the patient reported that he felt better after receiving fluids, antibiotics, morphine, Zofran and potassium. However when the ER provider went to evaluate the patient he was persistently satting 86% on room air. Patient developed transverse myelitis with acute COVID infection in 2021. 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 He denies any problems with urination be on the couple of weeks of urinary retention he had with initial diagnosis of transverse myelitis. He does note that his urine has been darker for the last 5 days. He has not had any recent medication changes. In the ER labs demonstrated mild leukocytosis white count of 12, CT of the chest abdomen and pelvis with contrast demonstrated bilateral basilar pneumonia, multiple tree-in-bud areas suggestive of postinfectious changes, enlarged lymph node right paratracheal area near the bety, CT of the abdomen pelvis demonstrated multiple lesions liver unchanged from prior imaging in August 2023, no acute intra-abdominal process but small sliding hiatal hernia. Source of information patient who is a good historian and from ER physician report and review of external and past medical records. Review of Systems 2 Review of Systems: 12 systems were reviewed with pertinent positives and negatives per HPI. Except as documented in the HPI, all other systems were reviewed and are negative. [facility] Past Medical History Medical History (Updated 11/28/24 @ 05:02 by Marylou Vivas DO) Degenerative joint disease (DJD) of lumbar spine Former smoker Transverse myelitis Secondary to COVID Chronic back pain Chronic hip pain COVID (07/2022) Surgical History Surgical History History of hand surgery Left index finger surgery. 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 He has smoked a pack of cigarettes a day for 40 years but is not smoked since his recent hospitalization in July 2022. He drinks a 5th of Yan Erazo in a week but has cut down to about a pt per week since July 2022. Uses marijuana occasionally. He has been since 1982. He and his have 3 children. Code status: Full code Surrogate decision maker: Sharri Justin Smoking packs per day: 1 Smoking cigarettes per day: 20.0 Years smoked: 40 Smoking pack-years: 40.00 Smoking status: Former smoker Tobacco type: cigarettes Second hand tobacco smoke exposure: No Smoking end date: 08/21/22 Alcohol intake: current Drinks per week: 8 Alcohol use details: 1 pt per week of Yan Erazo Substance use: current Substance use type: marijuana Last use: 08/17/2022 Lack of Transportation: No Lack of Food: Never True Current Housing: I Have Housing Concerned About Future Housing: No Difficulty Paying Gas/Electric Bills: No Difficulty Paying for Meds: No Currently Unemployed: No Education: High School Diploma/GED Difficulty w/ Childcare or Family Care: No Spiritual care concerns: No Meds Home Medications and Allergies Home Medications ?Medication ?Instructions ?Recorded ?Confirmed ?Type acetaminophen 325 mg tablet 650 mg PO TID PRN Pain 09/15/22 09/15/22 History (Tylenol) albuterol sulfate 90 mcg/actuation 90 mcg inhalation Q6H PRN 09/15/22 09/15/22 History aerosol inhaler Shortness Of Breath bisacodyl 10 mg rectal suppository 10 mg RECTAL DAILY PRN Constipation 09/15/22 09/15/22 History calcium carbonate 200 mg PO QID PRN Indigestion 09/15/22 09/15/22 History enoxaparin 40 mg/0.4 mL 40 mg subcut DAILY 09/15/22 09/15/22 History subcutaneous syringe (Lovenox) gabapentin 300 mg capsule 300 mg PO TID 09/15/22 09/15/22 History melatonin 3 mg tablet 3 mg PO HS 09/15/22 09/15/22 History ondansetron HCl 4 mg tablet 4 mg PO Q6H 09/15/22 09/15/22 History polyethylene glycol 3350 17 gram 17 g PO QAM 09/15/22 09/15/22 History oral powder packet fluticasone propionate 50 1 spray intranasal Q12HR #10 grams 09/23/22 Rx mcg/actuation nasal spray,suspension loratadine 10 mg tablet 10 mg PO QAM #30 tabs 09/23/22 Rx pantoprazole 40 mg tablet,delayed 40 mg PO Q12HR #60 tabs 09/23/22 Rx release Allergies Allergy/AdvReac Type Severity Reaction Status Date / Time No Known Allergies Allergy Verified 09/15/22 14:06 Vital Signs Vital Signs - 24 hr 11/27/24 13:54 11/27/24 18:52 11/27/24 19:45 Temperature 97.8 F 98.1 F Pulse Rate 93 103 H 105 H Respiratory Rate 18 16 15 Blood Pressure 143/89 H 164/90 H 144/77 H Pulse Oximetry 92 91 99 Oxygen Delivery Oxygen Flow Rate 11/27/24 20:45 11/27/24 20:48 11/27/24 20:48 Temperature Pulse Rate Respiratory Rate Blood Pressure Pulse Oximetry 86 L 94 94 Oxygen Delivery Nasal Cannula Oxygen Flow Rate 3 11/27/24 22:08 Temperature Pulse Rate 95 Respiratory Rate 18 Blood Pressure 136/86 Pulse Oximetry 98 Oxygen Delivery Oxygen Flow Rate Exam 2 Narrative: Weight 77 kg BMI 25.1 Const: Other: Mildly acute appearing, well-developed well-nourished, appears stated age HENMT: Other: Mucous membranes are dry, no oral pharyngeal erythema, head is normocephalic atraumatic, nasal cannula in place Eyes: Other: Pupils are equal and reactive, no scleral icterus, no conjunctival pallor Neck: Other: Noted fit JVD, no gross lymphadenopathy, nontender Resp: Other: Diffuse wheezing bilateral anterior barroso with crackles at the bases, frequent cough and tachypnea Cardio: Other: Mildly tachycardic, 2+ bilateral radial pedal pulses, no JVD, no murmur GI: Other: Soft, nontender, nondistended, positive bowel sounds Skin: Other: No jaundice, no pallor, normal temperature to touch Neuro: Other: Alert orient x4, speech is clear, no facial asymmetry, no gross motor deficits noted during the course of conversation, cranial nerves appear to be grossly intact Extrem: Other: No clubbing, cyanosis or edema, moves all extremities equally Psych: Other: Appropriate mood and affect, pleasant and cooperative, judgment and insight intact H&P: Results Labs Labs: Laboratory Tests 11/27/24 18:20 11/27/24 18:20 11/27/24 11/27/24 11/27/24 18:20 18:20 18:22 WBC 12.0 H RBC 5.07 Hgb 14.9 Hct 43.6 MCV 86.0 MCH 29.4 MCHC 34.2 RDW 13.3 Plt Count 310 MPV 9.5 Immature Gran % (Auto) 1.7 H Neut % (Auto) 67.9 Lymph % (Auto) 14.1 L Williamson % (Auto) 14.9 H Eos % (Auto) 0.8 Baso % (Auto) 0.6 Lymph # (Auto) 1.69 Williamson # (Auto) 1.8 H Eos # (Auto) 0.1 Baso # (Auto) 0.1 Abs Immat Gran (auto) 0.20 H Absolute Neuts (auto) 8.1 H Absolute Nucleated RBC 0.000 Nucleated RBC % 0.0 Sodium 136 L Potassium 3.3 L Chloride 96 L Carbon Dioxide 31 H Anion Gap 9 BUN 19 Creatinine 0.80 Estim Creat Clear Calc 83 Estimated GFR > 60 Glucose 132 H Calcium 9.7 Magnesium 2.5 H Cancelled Total Bilirubin 0.8 AST 23 ALT 28 Alkaline Phosphatase 130 H Total Protein 9.0 H Albumin 4.7 Lipase 50 Urine Color Dark yellow Urine Appearance Clear Urine pH 6.0 Ur Specific [place] 1.033 Urine Protein 2+ H Urine Glucose (UA) Negative Urine Ketones 2+ H Ur Blood (Man) Negative Urine Nitrate Negative Urine Bilirubin Negative Urine Urobilinogen 1.0 Add Ur Microanalysis Reviewed Leukocyte Esterase Rfl Negative Urine RBC 3-5 H Urine WBC 0-5 Ur Squamous Epith Cells None seen Urine Bacteria None seen Urine Casts 0-2 Urine Mucus Present Influenza A (RT-PCR) Negative Influenza B (RT-PCR) Negative RSV (RT-PCR) Negative SARS-CoV-2 RNA (RT-PCR) Negative Impressions Chest/Abdomen/Pelvis CT 11/27/24 20:00 IMPRESSION: CHEST: 1. Bilateral basal pneumonia. 2. Multiple bilateral areas of tree-in-bud appearance suggestive of post infection changes. 3. Enlarged lymph node in the right paratracheal area near to the bety. ABDOMEN/PELVIS: 1. Multiple hypodense lesions in the liver are unchanged from previous examination. 2. No evidence of appendicitis, diverticulitis or intestinal obstruction. 3. Small sliding hiatus hernia. EKG: Sinus rhythm with short ND rate 94 QTC 440 All imaging and EKGs personally reviewed and interpreted. And unless stated otherwise agree with radiologic and cardiology interpretation. Assessment and Plan Assessment and plan (1) Acute hypoxic respiratory failure: Code(s): J96.01 - Acute respiratory failure with hypoxia Status: Acute (2) Pneumonia: Qualifiers: Laterality: bilateral Lung location: lower lobe of lung Pneumonia type: due to unspecified organism Qualified Code(s): J18.9 - Pneumonia, unspecified organism Code(s): J18.9 - Pneumonia, unspecified organism Status: Acute (3) Gastroenteritis: Code(s): K52.9 - Noninfective gastroenteritis and colitis, unspecified Status: Acute (4) Transverse myelitis: Code(s): G37.3 - Acute transverse myelitis in demyelinating disease of central nervous system Status: Acute (5) Ambulatory dysfunction: Code(s): R26.2 - Difficulty in walking, not elsewhere classified Status: Acute (6) Acute hypokalemia: Code(s): E87.6 - Hypokalemia Status: Acute Plan Patient meets SIRS criteria with tachycardia, tachypnea and leukocytosis in the setting of acute pneumonia technically meets sepsis criteria. However by the time my evaluation patient's tachycardia and tachypnea had resolved. Patient did receive 1 L fluid bolus in the ER. Blood cultures were obtained and are pending. COVID flu and RSV PCR were negative. Patient was started on empiric antibiotic therapy with Rocephin and azithromycin. Patient does have acute hypoxic respiratory failure due to the above. He does have some significant wheezing in he may have a cook underlying component of chronic lung disease given his 40 pack per year smoking history. Will place patient on scheduled nebulizer treatments with albuterol and Atrovent and wean oxygen as tolerated. Patient would benefit from outpatient PFTs once acute infectious process has resolved. Patient is having nausea and dry heaves which have resolved. This was likely multifactorial due to some muscle spasms associated with his transverse myelitis with acute exacerbation due to acute illness and possibly some component of gastroenteritis. Patient does appear mildly volume depleted and received 1 L of fluids in the ER. Will given additional 2 L of maintenance IV fluids to run at 100 mL an hour then will stop in re-evaluate patient's fluid status. Will continue Zofran as needed for nausea. Patient does have mild hypokalemia received 20 mEq potassium chloride rider in the ER. Will repeat CBC and electrolyte panel in a.m.. Patient does have increased generalized weakness and chronic ambulatory dysfunction. Will consult PT and OT for evaluation. Patient has been admitted as observation status. Quality VTE Prophylaxis VTE prophylaxis: pharmacologic ordered (Lovenox 40 mg subQ daily.) Hospitalist [facility] Advance Care Plan I have confirmed that the patient's Advanced Care Plan is present, code status is documented, or surrogate decision maker is listed in patient medical record.: Yes Medication Reconciliation I have utilized all available resources to obtain, update and review the patients current medications (includes all prescriptions, OTC, herbals, cannabis, and nutritional supplements).: Yes
[2024-11-28] MEDS: IPRATROPIUM 0.5 MG/ALBUTEROL SULFATE 2.5 MG AMPUL.NEB 3 ML INHALATION ×4 (03:03→22:00)
[2024-11-28] MEDS: SODIUM CHLORIDE 0.9% IV 1,000 ML 100 ML IV CONT ×2 (05:32→17:34)
[2024-11-28 05:47] LABS: Basophils Absolute Auto 0.1 K/mm3 (0.0-0.1); Basophils Percent Auto 0.7 % (0.2-1.2); Eosinophils Absolute Auto 0.2 K/mm3 (0-0.3); Eosinophils Percent Auto 1.6 % (0-4.4); Hematocrit 35.5 % (42.0-52.0); Hemoglobin 12.1 g/dL (14.0-18.0); Immature Granulocyte Absolute 0.23 K/mm3 (0.00-0.031); Immature Granulocyte Percent A 2.2 % (0-0.5); Lymphocytes Percent Auto 14.6 % (18.3-44.2); Mean Corpuscular HGB Conc 34.1 g/dl (32-36); Mean Corpuscular Hemoglobin 29.8 pg (26-34); Mean Corpuscular Volume 87.4 fl (80-100); Mean Platelet Volume 9.6 fl (7.4-10.4); Monocytes Absolute Auto 1.7 K/mm3 (0.1-0.6); Monocytes Percent Auto 16.7 % (2.6-8.5); Neutrophils Absolute Auto 6.6 K/mm3 (1.3-6.7); Neutrophils Percent Auto 64.2 % (45.5-73.1); Platelet Count Result 250 k/mm3 (150-375); Red Blood Count 4.06 M/mm3 (4.6-6.20); Red Cell Distribution Width 13.5 % (11.5-14.5); White Blood Count 10.3 K/mm3 (4.5-10.0)
[2024-11-28 06:00] LABS: Anion Gap 4 mmol/L (4-12); Blood Urea Nitrogen 16 mg/dL (9-20); Carbon Dioxide 27 mmol/L (22-30); Chloride 104 mmol/L (98-107); Estimated CRCL calculation 108 ml/min; Estimated Glomerular Filt Rate > 60; Glucose 107 mg/dL (65-110); Potassium 3.7 mmol/L (3.4-5.0); Sodium 135 mmol/L (137-145)
--- NOTE | 2024-11-28 12:30 | PC.NURSE ---
This patient, Binu Justin, was admitted to 3 [facility] Surg Room 323-02 on 11/28/2024 1323. Patient/family oriented to hospital policies and general routines including ID bracelet, bed and alarms, visiting hours, pain management, procedures, bathroom and other care routines, personal items, smoking policy, room service/diet, and visiting hours. Information on how to activate the Rapid Response Team has been discussed. Patient/Family are encouraged to report perceived risks to care and to ask questions if they do not understand what they are told or what they should do.
[2024-11-28] MEDS: MORPHINE SULFATE (*CRX) 4 MG/ML INJ IV PUSH (13:20)
--- NOTE | 2024-11-28 17:06 | P.PNIM_ITS ---
Progress Note: A&P Assessment and Plan (1) Sepsis: Code(s): A41.9 - Sepsis, unspecified organism Status: Acute Assessment and Plan: Patient with sepsis. SIRS criteria with tachycardia, tachypnea and leukocytosis in the setting of acute pneumonia Patient's tachycardia and tachypnea resolved after IV fluids given in the ED. BCx pending. COVID, influenza and RSV PCR were negative. Patient was started on empiric antibiotic therapy with Rocephin and azithromycin. (2) Pneumonia: Qualifiers: Laterality: bilateral Lung location: lower lobe of lung Pneumonia type: due to unspecified organism Qualified Code(s): J18.9 - Pneumonia, unspecified organism Code(s): J18.9 - Pneumonia, unspecified organism Status: Acute Assessment and Plan: CT chest showing bilateral basal PNA noted posteriorly. Multiple areas of tree-in-bud appearance in both upper and lower lower lobes suggestive of post-infectious changes. Also seen is an enlarged 1.8cm LN at the right paratracheal chain. Probably reactive. Sputum Cx ordered. BCx collected and started on Rocephin and Azithromycin. Patient was on oxygen briefly but now on room air. Considerable wheezing noted. Continue Duonebs. He looks good otherwise and eating okay so will stop IV fluids. Monitor but consider adding steroids. Patient would benefit from outpatient PFTs once acute infectious process has resolved. (3) Gastroenteritis: Code(s): K52.9 - Noninfective gastroenteritis and colitis, unspecified Status: Acute Assessment and Plan: Patient was having nausea and dry heaves which have resolved. This was likely multifactorial due to some muscle spasms associated with his transverse myelitis with acute exacerbation due to acute illness and possibly some component of gastroenteritis. He was treated with IV fluids. Eating now so will stop Continue Zofran as needed for nausea. (4) Transverse myelitis: Code(s): G37.3 - Acute transverse myelitis in demyelinating disease of central nervous system Status: Acute Assessment and Plan: Patient has generalized weakness and chronic ambulatory dysfunction related to transverse myelitis. He normally walks with a walker. He declines PT and OT for evaluation at this time (5) Acute hypokalemia: Code(s): E87.6 - Hypokalemia Status: Acute Assessment and Plan: Patient with mild hypokalemia that was replaced. Follow and replace as needed. Plan DVT prophylaxis - SCDs Code status - full Resume home meds once med list updated. 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 He was also having sinus congestion and abd spasms. Cough productive of green- yellow sputum. No hemoptysis. Quit tobacco 2 years ago. Walks with walker. Feels better today Exam Narrative: AF 98.0 122/69 83 18 93% ra Gen - NARD Chest - diffuse expiratory wheeze with right base inspiratory crackles. CV - RRR S1/S2 Abd - Soft, NT/ND, Positive BS Ext - No pedal edema Psych - Nml mood and affect Skin - Warm and dry Objective Data Vital Signs Vital Signs: Vital Signs - 24 hr 11/27/24 18:52 11/27/24 19:45 11/27/24 20:45 Temperature 98.1 F Pulse Rate 103 H 105 H Respiratory Rate 16 15 Blood Pressure 164/90 H 144/77 H Pulse Oximetry 91 99 86 L Oxygen Delivery Oxygen Flow Rate 11/27/24 20:48 11/27/24 20:48 11/27/24 22:08 Temperature Pulse Rate 95 Respiratory Rate 18 Blood Pressure 136/86 Pulse Oximetry 94 94 98 Oxygen Delivery Nasal Cannula Oxygen Flow Rate 3 11/28/24 02:00 11/28/24 03:03 11/28/24 03:15 Temperature Pulse Rate 91 95 92 Respiratory Rate 19 16 14 Blood Pressure 141/89 H Pulse Oximetry 98 Oxygen Delivery Oxygen Flow Rate 11/28/24 04:00 11/28/24 05:00 11/28/24 06:00 Temperature Pulse Rate 97 95 80 Respiratory Rate 17 20 18 Blood Pressure 115/71 130/78 123/75 Pulse Oximetry 97 97 99 Oxygen Delivery Oxygen Flow Rate 11/28/24 07:00 11/28/24 07:55 11/28/24 08:59 Temperature Pulse Rate 83 83 95 Respiratory Rate 21 H 22 H 23 H Blood Pressure 124/80 Pulse Oximetry 99 96 93 Oxygen Delivery Oxygen Flow Rate 11/28/24 09:00 11/28/24 09:01 11/28/24 09:02 Temperature 99.1 F Pulse Rate 92 90 91 Respiratory Rate 24 H 17 23 H Blood Pressure 119/67 Pulse Oximetry 95 90 95 Oxygen Delivery Oxygen Flow Rate 11/28/24 10:19 11/28/24 10:19 11/28/24 10:29 Temperature Pulse Rate 86 93 Respiratory Rate 18 18 Blood Pressure Pulse Oximetry 93 Oxygen Delivery Room Air Oxygen Flow Rate 11/28/24 11:42 11/28/24 14:00 11/28/24 14:45 Temperature 98.0 F Pulse Rate 98 94 82 Respiratory Rate 16 16 18 Blood Pressure 116/68 122/69 Pulse Oximetry 95 93 Oxygen Delivery Oxygen Flow Rate 11/28/24 14:59 Temperature Pulse Rate 83 Respiratory Rate 18 Blood Pressure Pulse Oximetry Oxygen Delivery Oxygen Flow Rate Intake/Output Intake/Output: Intake & Output 11/25/24 11/26/24 11/27/24 11/28/24 23:59 23:59 23:59 23:59 Intake Total 1300 220 Balance 1300 220 Meds/Results Medications: Active Medications Generic Name Dose Route Start Last Admin Trade Name Freq PRN Reason Stop Dose Admin Acetaminophen 650 mg 11/27/24 23:30 Acetaminophen 325 Mg Tablet PO Q4H PRN Mild Pain (1-3) or Fever Albuterol/Ipratropium 3 ml 11/28/24 02:00 11/28/24 14:45 Ipratropium 0.5 Mg/Albuterol Sulfate 2.5 Mg Ampul.Neb 3 Ml INHALATION 3 ml Q6HRT KALE Administration Ceftriaxone Sodium 1 gm in 50 mls @ 100 mls/hr 11/28/24 21:00 Rocephin 1 Gm/Ns 50 Ml IVPB Q24H KALE Azithromycin 500 mg in 250 mls @ 250 mls/hr 11/28/24 22:00 Zithromax IVPB Q24H KALE Sodium Chloride 1,000 mls @ 100 mls/hr 11/28/24 05:00 11/28/24 05:32 Normal Saline Iv IV CONT 11/29/24 00:59 100 mls/hr .Q10H KALE Administration Morphine Sulfate 4 mg 11/28/24 01:34 11/28/24 13:20 Morphine Sulfate (*Crx) 4 Mg/Ml Inj IV PUSH 4 mg Q4H PRN Administration Pain Rated 7-10 Ondansetron HCl 4 mg 11/27/24 23:30 Ondansetron Inj 4 Mg/2 Ml Vial IV PUSH Q4H PRN Nausea Radiology Results: ITS Impressions Chest/Abdomen/Pelvis CT 11/27/24 20:00 IMPRESSION: CHEST: 1. Bilateral basal pneumonia. 2. Multiple bilateral areas of tree-in-bud appearance suggestive of post infection changes. 3. Enlarged lymph node in the right paratracheal area near to the bety. ABDOMEN/PELVIS: 1. Multiple hypodense lesions in the liver are unchanged from previous examination. 2. No evidence of appendicitis, diverticulitis or intestinal obstruction. 3. Small sliding hiatus hernia. Labs Labs: Laboratory Results - last 24 hr 11/27/24 11/27/24 11/27/24 18:20 18:20 18:22 WBC 12.0 H RBC 5.07 Hgb 14.9 Hct 43.6 MCV 86.0 MCH 29.4 MCHC 34.2 RDW 13.3 Plt Count 310 MPV 9.5 Immature Gran % (Auto) 1.7 H Neut % (Auto) 67.9 Lymph % (Auto) 14.1 L [place] % (Auto) 14.9 H Eos % (Auto) 0.8 Baso % (Auto) 0.6 Lymph # (Auto) 1.69 [place] # (Auto) 1.8 H Eos # (Auto) 0.1 Baso # (Auto) 0.1 Abs Immat Gran (auto) 0.20 H Absolute Neuts (auto) 8.1 H Absolute Nucleated RBC 0.000 Nucleated RBC % 0.0 Sodium 136 L Potassium 3.3 L Chloride 96 L Carbon Dioxide 31 H Anion Gap 9 BUN 19 Creatinine 0.80 Estim Creat Clear Calc 83 Estimated GFR > 60 Glucose 132 H Calcium 9.7 Magnesium 2.5 H Cancelled Total Bilirubin 0.8 AST 23 ALT 28 Alkaline Phosphatase 130 H Total Protein 9.0 H Albumin 4.7 Lipase 50 Urine Color Dark yellow Urine Appearance Clear Urine pH 6.0 Ur Specific [place] 1.033 Urine Protein 2+ H Urine Glucose (UA) Negative Urine Ketones 2+ H Ur Blood (Man) Negative Urine Nitrate Negative Urine Bilirubin Negative Urine Urobilinogen 1.0 Add Ur Microanalysis Reviewed Leukocyte Esterase Rfl Negative Urine RBC 3-5 H Urine WBC 0-5 Ur Squamous Epith Cells None seen Urine Bacteria None seen Urine Casts 0-2 Urine Mucus Present Influenza A (RT-PCR) Negative Influenza B (RT-PCR) Negative RSV (RT-PCR) Negative SARS-CoV-2 RNA (RT-PCR) Negative 11/28/24 05:33 WBC 10.3 H RBC 4.06 L Hgb 12.1 L Hct 35.5 L MCV 87.4 MCH 29.8 MCHC 34.1 RDW 13.5 Plt Count 250 MPV 9.6 Immature Gran % (Auto) 2.2 H Neut % (Auto) 64.2 Lymph % (Auto) 14.6 L [place] % (Auto) 16.7 H Eos % (Auto) 1.6 Baso % (Auto) 0.7 Lymph # (Auto) 1.50 [place] # (Auto) 1.7 H Eos # (Auto) 0.2 Baso # (Auto) 0.1 Abs Immat Gran (auto) 0.23 H Absolute Neuts (auto) 6.6 Absolute Nucleated RBC 0.000 Nucleated RBC % 0.0 Sodium 135 L Potassium 3.7 Chloride 104 Carbon Dioxide 27 Anion Gap 4 BUN 16 Creatinine 0.60 L Estim Creat Clear Calc 108 Estimated GFR > 60 Glucose 107 Calcium 8.0 L Magnesium Total Bilirubin AST ALT Alkaline Phosphatase Total Protein Albumin Lipase Urine Color Urine Appearance Urine pH Ur Specific [place] Urine Protein Urine Glucose (UA) Urine Ketones Ur Blood (Man) Urine Nitrate Urine Bilirubin Urine Urobilinogen Add Ur Microanalysis Leukocyte Esterase Rfl Urine RBC Urine WBC Ur Squamous Epith Cells Urine Bacteria Urine Casts Urine Mucus Influenza A (RT-PCR) Influenza B (RT-PCR) RSV (RT-PCR) SARS-CoV-2 RNA (RT-PCR)
[2024-11-28] MEDS: MORPHINE SULFATE (*CRX) 4 MG/ML INJ 2 MG IV PUSH (19:59)
[2024-11-28] MEDS: AZITHROMYCIN 500 MG/NS 250 ML 500 MG/250 ML BAG 250 MG IVPB (20:09)
[2024-11-29] VITALS (11 sets, daily range): BP systolic 105–154; BP diastolic 61–83; PULSE 76–93; RESP 12–22; TEMP 36.7–37.1; O2SAT 90–97
[2024-11-29] MEDS: MORPHINE SULFATE (*CRX) 4 MG/ML INJ 2 MG IV PUSH (00:40)
[2024-11-29] MEDS: ONDANSETRON INJ 4 MG/2 ML VIAL IV PUSH ×2 (00:43→10:07)
[2024-11-29] MEDS: IPRATROPIUM 0.5 MG/ALBUTEROL SULFATE 2.5 MG AMPUL.NEB 3 ML INHALATION ×4 (02:50→21:27)
[2024-11-29] MEDS: APIXABAN 2.5 MG TABLET PO ×2 (10:07→20:23)
[2024-11-29 11:05] LABS: Anion Gap 9 mmol/L (4-12); Blood Urea Nitrogen 13 mg/dL (9-20); Calcium 9.2 mg/dL (8.4-10.2); Carbon Dioxide 33 mmol/L (22-30); Chloride 93 mmol/L (98-107); Estimated CRCL calculation 92 ml/min; Estimated Glomerular Filt Rate > 60; Glucose 114 mg/dL (65-110); Magnesium 2.2 mg/dL (1.6-2.3); Phosphorus 2.9 mg/dL (2.5-4.5); Potassium 3.2 mmol/L (3.4-5.0); Sodium 135 mmol/L (137-145)
[2024-11-29] MEDS: predniSONE 20 MG TABLET 40 MG PO (15:50)
[2024-11-29] MEDS: POTASSIUM CHLORIDE 20 MEQ ER TABLET 40 MEQ PO (15:51)
--- NOTE | 2024-11-29 16:49 | PC.NURSE ---
No changes from this RNs previous assessment unless noted.
[2024-11-29] MEDS: HYDROcodone/acetaminophen (*CRX) 5-325 MG TABLET 1 TAB PO (18:33)
--- NOTE | 2024-11-29 18:43 | PM.IMPN ---
Progress Note: A&P Assessment and Plan (1) Sepsis: Code(s): A41.9 - Sepsis, unspecified organism Status: Acute Assessment and Plan: Patient with sepsis. SIRS criteria with tachycardia, tachypnea and leukocytosis in the setting of acute pneumonia Patient's tachycardia and tachypnea resolved after IV fluids given in the ED. BCx NGTD. COVID, influenza and RSV PCR were negative. Patient was started on empiric antibiotic therapy with Rocephin and azithromycin. Continue the samle (2) Pneumonia: Qualifiers: Laterality: bilateral Lung location: lower lobe of lung Pneumonia type: due to unspecified organism Qualified Code(s): J18.9 - Pneumonia, unspecified organism Code(s): J18.9 - Pneumonia, unspecified organism Status: Acute Assessment and Plan: CT chest showing bilateral basal PNA noted posteriorly. Multiple areas of tree-in-bud appearance in both upper and lower lower lobes suggestive of post-infectious changes. Also seen is an enlarged 1.8cm LN at the right paratracheal chain. Probably reactive. Cultures collected and started on Rocephin and Azithromycin. Sputum Cx pending. BCx NGTD Patient was on oxygen briefly but now on room air. Considerable wheezing noted. Continue Duonebs. Add short course of Prednisone (he has been told to limit steroid exposure due to osteopenia) Monitor. Patient would benefit from outpatient PFTs once acute infectious process has resolved. Will need follow up imaging given the enlarged LN. (3) Gastroenteritis: Code(s): K52.9 - Noninfective gastroenteritis and colitis, unspecified Status: Acute Assessment and Plan: Patient was having nausea and dry heaves which have resolved. This was likely multifactorial due to some muscle spasms associated with his transverse myelitis with acute exacerbation due to acute illness and possibly some component of gastroenteritis. He was treated with IV fluids. Eating now so fluids stopped (4) Transverse myelitis: Code(s): G37.3 - Acute transverse myelitis in demyelinating disease of central nervous system Status: Acute Assessment and Plan: Patient has generalized weakness and chronic ambulatory dysfunction related to transverse myelitis. He declined PT and OT. He is up walking in the halls. (5) Acute hypokalemia: Code(s): E87.6 - Hypokalemia Status: Acute Assessment and Plan: Patient with mild hypokalemia that was replaced. Follow and replace as needed. 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 Slept okay. Walking to the BR and in the halls. Cough productive of whitish sputum. [place] nauseous but able to eat and tolerate it. No CP but has right flank pain that is better. having small amounts of stool incontinence that he has had before and was improved; he feels worse again related to coughing Exam Narrative: AF 98.0 106/61 90 18 97% ra Gen - NARD Chest - diffuse expiratory wheeze CV - RRR S1/S2 Abd - Soft, NT/ND, Positive BS Ext - No pedal edema Psych - Nml mood and affect Skin - Warm and dry Objective Data Vital Signs Vital Signs: Vital Signs - 24 hr 11/28/24 19:33 11/28/24 22:00 11/29/24 06:00 Temperature 98.7 F 98.0 F Pulse Rate 82 76 Respiratory Rate 16 16 Blood Pressure 149/88 H 105/65 Pulse Oximetry 94 95 Oxygen Delivery Room Air Fraction of Inspired Oxygen 11/29/24 09:05 11/29/24 09:05 11/29/24 09:10 Temperature Pulse Rate 82 90 Respiratory Rate 20 22 H Blood Pressure Pulse Oximetry 90 Oxygen Delivery Room Air Fraction of Inspired Oxygen 11/29/24 13:50 11/29/24 13:50 11/29/24 13:57 Temperature Pulse Rate 88 93 Respiratory Rate 20 20 Blood Pressure Pulse Oximetry 92 Oxygen Delivery Room Air Fraction of Inspired Oxygen 11/29/24 14:00 Temperature 98.0 F Pulse Rate 90 Respiratory Rate 18 Blood Pressure 106/61 Pulse Oximetry 97 Oxygen Delivery Fraction of Inspired Oxygen Intake/Output Intake/Output: Intake & Output 11/26/24 11/27/24 11/28/24 11/29/24 23:59 23:59 23:59 23:59 Intake Total 1300 2000 1220 Output Total 1110 800 Balance 1300 890 420 Meds/Results Medications: Active Medications Generic Name Dose Route Start Last Admin Trade Name Freq PRN Reason Stop Dose Admin Acetaminophen 650 mg 11/27/24 23:30 Acetaminophen 325 Mg Tablet PO Q4H PRN Mild Pain (1-3) or Fever Hydrocodone Bitart/Acetaminophen 1 tab 11/28/24 17:32 11/29/24 18:33 Hydrocodone/Acetaminophen (*Crx) 5-325 Mg Tablet PO 1 tab Q6H PRN Administration Pain Rated 4-6 Albuterol/Ipratropium 3 ml 11/28/24 02:00 11/29/24 13:50 Ipratropium 0.5 Mg/Albuterol Sulfate 2.5 Mg Ampul.Neb 3 Ml INHALATION 3 ml Q6HRT KALE Administration Apixaban 2.5 mg 11/29/24 09:00 11/29/24 10:07 Apixaban 2.5 Mg Tablet PO 2.5 mg Q12H [facility] Administration Ceftriaxone Sodium 1 gm in 50 mls @ 100 mls/hr 11/28/24 21:00 11/28/24 20:39 Rocephin 1 Gm/Ns 50 Ml IVPB Infused Q24H [facility] Infusion Azithromycin 500 mg in 250 mls @ 250 mls/hr 11/28/24 22:00 11/28/24 21:09 Zithromax IVPB Infused Q24H [facility] Infusion Morphine Sulfate 2 mg 11/28/24 17:32 11/29/24 00:40 Morphine Sulfate (*Crx) 4 Mg/Ml Inj IV PUSH 2 mg Q4H PRN Administration Pain Rated 7-10 Ondansetron HCl 4 mg 11/27/24 23:30 11/29/24 10:07 Ondansetron Inj 4 Mg/2 Ml Vial IV PUSH 4 mg Q4H PRN Administration Nausea Polyethylene Glycol 17 gm 11/29/24 09:00 11/29/24 10:07 Polyethylene Glycol 3350 17 Gm Powd.Pack PO Not Given QAM [facility] Polyethylene Glycol 17 gm 11/29/24 13:07 Polyethylene Glycol 3350 17 Gm Powd.Pack PO QAM PRN Constipation Prednisone 40 mg 11/30/24 08:00 Prednisone 20 Mg Tablet PO 12/02/24 08:01 DAILY@0800 [facility] Radiology Results: ITS Impressions Chest/Abdomen/Pelvis CT 11/27/24 20:00 IMPRESSION: CHEST: 1. Bilateral basal pneumonia. 2. Multiple bilateral areas of tree-in-bud appearance suggestive of post infection changes. 3. Enlarged lymph node in the right paratracheal area near to the bety. ABDOMEN/PELVIS: 1. Multiple hypodense lesions in the liver are unchanged from previous examination. 2. No evidence of appendicitis, diverticulitis or intestinal obstruction. 3. Small sliding hiatus hernia. Labs Labs: Laboratory Results - last 24 hr 11/29/24 09:53 Sodium 135 L Potassium 3.2 L Chloride 93 L Carbon Dioxide 33 H Anion Gap 9 BUN 13 Creatinine 0.72 Estim Creat Clear Calc 92 Estimated GFR > 60 Glucose 114 H Calcium 9.2 Phosphorus 2.9 Magnesium 2.2 Albumin 4.0
[2024-11-29] MEDS: AZITHROMYCIN 250 MG TABLET PO (20:23)
[2024-11-30] VITALS (9 sets, daily range): BP systolic 117–130; BP diastolic 77–79; PULSE 81–95; RESP 16–20; TEMP 36.4–37; O2SAT 91–92
[2024-11-30] MEDS: IPRATROPIUM 0.5 MG/ALBUTEROL SULFATE 2.5 MG AMPUL.NEB 3 ML INHALATION ×3 (02:20→15:18)
[2024-11-30 07:14] LABS: Anion Gap 4 mmol/L (4-12); Blood Urea Nitrogen 12 mg/dL (9-20); Calcium 8.5 mg/dL (8.4-10.2); Carbon Dioxide 35 mmol/L (22-30); Chloride 97 mmol/L (98-107); Estimated CRCL calculation 96 ml/min; Estimated Glomerular Filt Rate > 60; Glucose 126 mg/dL (65-110); Magnesium 2.3 mg/dL (1.6-2.3); Potassium 3.8 mmol/L (3.4-5.0); Sodium 136 mmol/L (137-145)
[2024-11-30] MEDS: predniSONE 20 MG TABLET 40 MG PO (08:34)
[2024-11-30] MEDS: APIXABAN 2.5 MG TABLET PO (08:34)
[2024-11-30] MEDS: polyethylene glycoL 3350 17 GM POWD.PACK PO (08:41)
--- NOTE | 2024-11-30 16:42 | PM.DS ---
DS: Admitting Diagnosis Discharge Date 11/30/24 Admitting Diagnosis Cough, nausea and vomiting DS: Discharge Diagnosis Discharge Diagnosis (1) Sepsis: Code(s): A41.9 - Sepsis, unspecified organism Status: Acute (2) Pneumonia: Qualifiers: Laterality: bilateral Lung location: lower lobe of lung Pneumonia type: due to unspecified organism Qualified Code(s): J18.9 - Pneumonia, unspecified organism Code(s): J18.9 - Pneumonia, unspecified organism Status: Acute (3) Gastroenteritis: Code(s): K52.9 - Noninfective gastroenteritis and colitis, unspecified Status: Acute (4) Transverse myelitis: Code(s): G37.3 - Acute transverse myelitis in demyelinating disease of central nervous system Status: Acute (5) Acute hypokalemia: Code(s): E87.6 - Hypokalemia Status: Acute DS: Summary Hospital Course Reason for hospitalization: 63yo male with 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 Please see H&P for details. Hospital Course: Patient found to have sepsis on admission. SIRS criteria with tachycardia, tachypnea and leukocytosis in the setting of acute pneumonia. Patient's tachycardia and tachypnea resolved after IV fluids given in the ED. BCx NGTD. COVID, influenza and RSV PCR were negative. CT chest showing bilateral basal PNA noted posteriorly. Multiple areas of tree-in-bud appearance in both upper and lower lower lobes suggestive of post-infectious changes. Also seen is an enlarged 1.8cm LN at the right paratracheal chain. Probably reactive. Cultures collected and started on Rocephin and Azithromycin. Sputum Cx pending. BCx NGTD. Patient was on oxygen briefly but now on room air. Considerable wheezing noted. Treated with Duonebs and added a short course of Prednisone. Patient would benefit from outpatient PFTs once acute infectious process has resolved. Will need follow up imaging given the enlarged LN as well. Patient was started on empiric antibiotic therapy with Rocephin and azithromycin. Patient was having nausea and dry heaves which have resolved. This was likely multifactorial due to some muscle spasms associated with his transverse myelitis with acute exacerbation due to acute illness and possibly some component of gastroenteritis. He was treated with IV fluids. Eating now and tolerating well. Patient has generalized weakness and chronic ambulatory dysfunction related to transverse myelitis. He declined PT and OT. He is up walking in the halls. Patient had mild hypokalemia that was replaced. He had clinical improvement. he overall did well and was able to be discharged on 11/30/24. Status at Discharge Cognitive/behavioral status at discharge: stable Time Spent with Patient Time attestation: Total time spent providing and/or coordinating discharge services: 35 minutes Time spent: Greater than 30 minutes Exam Narrative: AF 98.6 117/79 95 20 92% ra Gen - NARD Chest - scattered expiratory wheeze CV - RRR S1/S2 Abd - Soft, NT/ND, Positive BS Ext - No pedal edema Psych - Nml mood and affect Skin - Warm and dry DS: Data Data Completed and Pending Labs on day of discharge: Labs from last 24 hours 11/30/24 06:43 Sodium 136 L Potassium 3.8 Chloride 97 L Carbon Dioxide 35 H Anion Gap 4 BUN 12 Creatinine 0.69 L Estim Creat Clear Calc 96 Estimated GFR > 60 Glucose 126 H Calcium 8.5 Magnesium 2.3 Preliminary micro results at discharge 11/27/24 21:59 Blood Culture - Preliminary Blood 11/27/24 21:59 Blood Culture - Preliminary Blood Discharge Plan Discharge Attending physician on discharge: Ravi Banda Discharging Clinician: Ravi Banda Anticipated Discharge Date/Time: 11/30/24 17:03 Patient Disposition: Home, Self-Care Activity: as tolerated Diet: regular Discharge Instructions: Please complete your antibiotic course even if you are starting to feel well. Take precautions to avoid falls. Rise slowly from a lying or sitting position. Pause before standing or walking. Contact your doctor or call 911 and come to the Emergency Room if you have fevers, increasing shortness of breath or other worrisome symptoms. Avoid NSAIDs (ibuprofen, naproxen, Aleve). Tylenol is safe to take. Follow-up with your primary care provider in 1-2 weeks. Please call for appointment. Follow-up with pulmonology in 3-4 weeks for further assessment of your lung function. Please call for an appointment. Would recommend Pulmonary Function Testing (PFTs) and a repeat CT chest to ensure stability or improvement compared to current CT chest. Thank you for using [facility] for your health care needs. Patient Instructions: Antibiotic Form Patient Language: Arabic Stand Alone Forms: General Discharge Information Follow-up/Referrals: Milly,Catia Denny MD [Primary Care Provider] - Call for Appointment Madhavi Pimentel MD [Physician] - Call for Appointment Discharge Medications: New prednisone 20 mg Tablet 40 mg PO DAILY@0800 3 Days Qty: 6 0RF azithromycin [Zithromax] 250 mg Tablet 250 mg PO HS Qty: 2 0RF amoxicillin-pot clavulanate 875-125 mg tablet 1 tablet PO Q12H Qty: 8 0RF Continued polyethylene glycol 3350 17 gram Powder In Packet 17 g PO QAM Eliquis 2.5 mg tablet 2.5 mg PO Q12H polyethylene glycol 3350 [Miralax] 17 gram/dose powder 4 g PO BID PRN (Reason: constipation) Date of admission: 11/28/24 08:40 Primary Care Provider: Milly,Catia Denny Admitting Provider: Marylou Vivas Attending physician on admission: Marylou Vivas Condition: Stable Hospitalist MIPS Heart Failure (Exclusion) Patient has history of Heart Transplant or Left Ventricular Assistive Device?: No IF YES, STOP HERE Heart Failure (Qualifier) Patient has current or prior documentation of LVEF less than or equal to 40%, or mod/servere depressed LVSF?: No IF NO, STOP HERE
--- OUTSIDE RECORDS SUMMARY | 2024-12-04 20:29 | XMS_ITS | Encounter Summary ---
Author Organization [facility] Address [facility] [place] [address] Care Team Providers Care Travel Writer Name Role Phone Catia Atkins MD Primary Care Provider [phone] Encounter Details Date Type Department Care Team (Latest Contact Info) Description 08/23/2024 Travel Social History Tobacco Use Types Packs/Day Years Used Date Smoking Tobacco: Former Cigarettes Smokeless Tobacco: Former Alcohol Use Standard Drinks/Week Comments Yes 0 (1 standard drink = 0.6 oz pur e alcohol) very seldom AUDIT-C Answer Date Recorded Q1: How often do you have a drink containing alc ohol? 2-4 times a month 09/27/2022 Q2: How many drinks containi ng alcohol do you have on a typical day when you are drinking? 3 or 4 09/27/2022 Q3: How often do you have si x or more drinks on one occasion? Less than monthly 09/27/2022 PHQ-2 Answer Date Recorded Patient Health Questionnaire-2 Score 2 07/15/2024 Hunger Vital Sign Answer Date Recorded Within the past 12 months, y ou worried that your food would run out before you got the money to buy more. Never true 09/28/20 22 Within the past 12 months, t he food you bought just didn't last and you didn't have money to get more. Never true 09/28/2022 Sex and Gender Information Value Date Recorded Sex Assigned at Not on file Gender Identity Not on file Sexual Orientation Not on file documented as of this encounter Functional Status Functional Status Response Date of Assess ment Is person deaf or have serious hearing difficult y? No 09/28/2022 Is person blind or have serious difficulty seein g? No 09/28/2022 Does person have serious dif ficulty walking/climbing stairs? Yes 09/28/2022 Does person have difficulty dressing/bathing? Ye s 09/28/2022 Does person have difficulty doing errands alone? Yes 09/28/2022 Cognitive Status Response Date of Assessm ent Does person have difficulty concentrating/remembering/making decisions? No 09/28/2022 documented as of this encounter Plan of Treatment Not on file documented as of this encounter Visit Diagnoses Not on filedocumented in this encounter Care Teams Travel Writer Relationship Specialty Start Date End Date Catia Atikns MD [address] [place] [address] PCP - General 06/28/19 documented as of this encounter
--- OUTSIDE RECORDS SUMMARY | 2024-12-04 20:29 | XMS_ITS | Encounter Summary ---
Author Organization [facility] Address [facility] [place] [address] Care Team Providers Care Non Profit Director Name Role Phone Catia Atkins MD Primary Care Provider [phone] Reason for Visit * Reason Comments Establish Care Encounter Details Date Type Department Care Team (Late st Contact Info) Description 08/23/2024 9:45 AM CDT Office Visit [facility] - Neurosurgery [address] [place] [address], [place] [address] Aden Atkinson MD [address] [place] [address] [place] [address] Chronic bilateral low back pain, unspecified whether sciatica present (Primary Dx) Social History Tobacco Use Types Packs/Day Years Used Date Smoking Tobacco: Former Cigarettes Smokeless Tobacco: Former Tobacco Cessation:Counseling Given: No Alcohol Use Standard Drinks/Week Comments Yes 0 [...] on file documented as of this encounter Last Filed Vital Signs Vital Sign Reading Time Taken Comments Blood Pressure 124/81 08/23/2024 9:36 AM CDT Pulse 75 08/23/2024 9:36 AM CDT Temperature 36.5 ??C (97.7 ??F) 08/23/2024 9:36 AM CD T Respiratory Rate - - Oxygen Saturation 94% 08/23/2024 9:36 AM CDT Inhaled Oxygen Concentration - - Weight 81.6 kg (180 lb) 08/23/2024 9:36 AM CDT Height 177.8 cm (5' 10) 08/23/2024 9:36 AM CDT Body Mass Index 25.83 08/23/2024 9:36 AM CDT documented in this encounter Functional Status Functional Status Response [...] No 09/28/2022 documented as of this encounter Patient Instructions * Patient Instructions* Zora Rivera RN - 08/23/2024 10:01 AM CDT Follow up with Dr. Atkinson as needed For any questions please contact Zora at [phone] For appointments call Centralized Scheduling at [phone] documented in this encounter Progress Notes * Aden Atkinson MD - 08/23/2024 10:00 AM CDT NAME Binu Justin 1960 [facility] [id number] DATE OF VISIT 08/23/24 I had the pleasure of seeing Mr. Justin in the neurosurgery office today HISTORY OF THE PRESENT ILLNESS Mr. Justin is a very pleasant 63-year-old gentleman with previous history of back pain and some lumbar radiculopathy. He had a history of transverse myelitis in the cervical spine in 2021 with significant improvement of the strength in the upper and lower limbs to the point that he is currently walking with a walker. He is to report some tightness in the lower limbs as well as some back pain. The patient presented which in the past have somewhat improved with a Medrol Dosepak. He denies any clear symptoms of lumbar radiculopathy. Past Medical History: Diagnosis Date Alcohol abuse Arthritic-like pain Low back pain Past Surgical History: Procedure Laterality Date Appendectomy HX OF HAND SURGERY Family History Problem Relation Name Age of Onset Arthritis - Osteo Mother Status: None Known Father Status: Alive Social History Socioeconomic History Marital status: Single Spouse name: Not on file Number of children: Not on file Years of education: Not on file Highest education level: Not on file Occupational History Not on file Tobacco Use Smoking status: Former Packs/day: 1 Types: Cigarettes Smokeless tobacco: Former Vaping Use Vaping Use: Former Substance and Sexual Activity Alcohol use: Yes Comment: very seldom Drug use: Not Currently Types: Marijuana Comment: stopped Sexual activity: Not on file Other Topics Concern Not on file Social History Narrative Not on file Social Determinants of Health Financial Resource Strain: Not on file Food Insecurity: No Food Insecurity (09/28/2022) Hunger Vital Sign Worried About Running Out of Food in the Last Year: Never true Ran Out of Food in the Last Year: Never true Transportation Needs: Not on file Stress: Not on file Housing Stability: Not on file Current Medications acetaminophen (Tylenol) 325 MG tablet Take 1 (one) tablet by mouth every 4 hours as needed for Fever or Pain Maximum allowable Acetaminophen amount = 4 Grams (4000 mg) / 24 hours. baclofen (Lioresal) 10 MG tablet Take 1 (one) tablet by mouth at bedtime May cause drowsiness. calcium carbonate (Calci-Chew) 1250 (500 Ca) MG chew tablet Take 1 (one) tablet by mouth 4 times daily as needed after meals/at bedtime for Heartburn Eliquis 2.5 MG tablet Take 2 (two) tablets by mouth 2 times daily magnesium 250 MG tablet Take 1 (one) tablet by mouth once daily vitamin b-12 (Cyancobalamin) 1000 MCG tablet cr Take by mouth once daily Patient did not know or indicate the dosage- TS vitamin D, cholecalciferol, 50 MCG (2000 UT) tablet Take 2 (two) tablets by mouth once daily PHYSICAL EXAMINATION Patient is in mild discomfort but in no acute distress. He has strength which is 5/5 for all testedmuscles in the lower limbs. He has some patchy areas of hypoesthesia in the lower limbs. Reflexes are physiologic and symmetric at 1+ in the lower upper and lower limbs. Negative Felecia's negative clonus bilaterally. REVIEW OF DIAGNOSTIC STUDIES Patient had an MRI cervical spine performed on 01/17/2024 that revealed the previous resolution of the FLAIR hyperintensity in the right cerebellar peduncle as well as resolution of the enhancement atthe spinal cord at level of C4-C6. There are some degenerative changes; however without significantcentral canal or foraminal stenosis. MRI of the thoracic spine performed the same date revealed no central canal stenosis MEDICAL DECISION-MAKING I told the patient that he presented with history of transverse myelitis as well as some demyelination in his cerebellum. The patient is already following with Neurology. At this point I do not recommend any further intervention for his spine. I told him that if in the future his back pain progresses he may consider a trial with a spinal cord stimulation system. However for now I recommended him to continue physical therapy in order to recover his ambulation capacity. documented in this encounter Plan of Treatment Not on file documented as of this encounter Visit Diagnoses Diagnosis Chronic bilateral low back pain, unspecified whether sciatica present- Primary documented in this encounter Care Teams Non Profit Director Relationship Specialty Start Date End Date Catia Atkins MD [facility] [place] [id number] PCP - General 06/28/19 documented as of this encounter
--- OUTSIDE RECORDS SUMMARY | 2024-12-04 20:29 | XMS_ITS | Encounter Summary ---
Author Organization [facility] Address [address] [place] [address] Care Team Providers Care Lead Assistant Manager Name Role Phone Catia Atkins MD Primary Care Provider [phone] Encounter Details Date Type Department Care Team (Latest Contact Info) Description 07/15/2024 Travel Social History Tobacco Use Types Packs/Day [...] money to buy more. Never true 09/28/20 Within the past 12 months, t he [...] on filedocumented in this encounter Care Teams Lead Assistant Manager Relationship Specialty Start Date End Date Catia Atkins MD [address] [place] [address] PCP - General 06/28/19 documented as of this encounter
--- OUTSIDE RECORDS SUMMARY | 2024-12-04 20:29 | XMS_ITS | Encounter Summary ---
Author Organization [facility] Address [facility] [facility] [place] [address] Care Team Providers Care Health Information Internship Name Role Phone Catia Atkins MD Primary Care Provider [phone] Encounter Details Date Type Department Care Team (Late st Contact Info) Description 07/15/2024 12:18 PM CDT - 07/15/2024 11:59 PM CDT Hospital Encounter [facility] DIAGNOSTIC RAD [facility] [address] [facility] [place] [address] Regino Waite MD [facility] [facility] [place] [address] Discharge Disposition: Home or Self Care Social History Tobacco Use Types Packs/Day Years [...] No 09/28/2022 documented as of this encounter Medications at Time of Discharge Medication Sig Dispensed Refills Start Date End Date acetaminophen (Tylenol) 325 MG tablet Take 1 (one) tablet by mouth every 4 hours as needed for Fever or Pain Maximum allowable Acetaminophen amount = 4 Grams (4000 mg) / 24 hours. baclofen (Lioresal) 10 MG tabletIndications:Tr ansverse myelitis (HCC) Take 1 (one) tablet by mouth at bedtime May cause drowsiness. 90 tablet 3 03/27/2023 calcium carbonate (Calci-Chew) 1250 (500 Ca) MG chew tablet Take 1 (one) tablet by mouth 4 times daily as needed after meals/at bedtime for Heartburn Eliquis 2.5 MG tablet Take 2 (two) tablets by mouth 2 times daily 03/26/2023 vitamin b-12 (Cyancobalamin) 1000 MCG tablet cr Take by mouth once daily Patient did not know or indicate the dosage- TS vitamin D, cholecalciferol, 50 MCG (2000 UT) tablet Take 2 (two) tablets by mouth once daily magnesium 30 MG tablet Take 250 mg by mouth once daily 08/23/2024 documented as of this encounter Plan of Treatment Not on file documented as of this encounter Procedures Procedure Name Priority Date/Time Associated Diagnosis Comments XR THORACIC SPINE 2VW Routine 07/15/2024 12:45 PM CDT Thoracic spine pain documented in this encounter Results * XR Thoracic Spine 2Vw (07/15/2024 12:45 PM CDT) Anatomical Region Laterality Modality Spine Radiographic Zaynab ging 07/15/2024 2:54 PM CDT Impressions 07/15/2024 3:54 PM CDT IMPRESSION: No acute fracture or lateral malalignment identified. Dextrorotation or scoliosis. Right hilar prominence may be vascular in etiology but underlying right hilar lung mass and/or adenopathy cannot be excluded. Suggest correlation with a PA and lateral upright chest radiographic study. Report dictated by Bobby Abarca MD (vice president of news). I, Marquez White MD have personally reviewed and interpreted this examination/study. > Interpreting Provider: Marquez White MD on 07/15/2024 3:54 PM Narrative 07/15/2024 3:54 PM CDT PROCEDURE: ??XR THORACIC SPINE 2VW, DATE/TIME OF EXAM: ??07/15/2024 12:45 PM, LOCATION ??[facility] INDICATION: M54.6: Thoracic spine pain ADDITIONAL CLINICAL INFORMATION: Ordering Provider Reason For Exam: Technologist Note: Additional: COMPARISON: 01/17/2024 MRI Thoracic spine FINDINGS: Upright full length AP and lateral views were obtained. The vertebral bodies are normally aligned on the lateral projection. There is no fracture or compression deformity. Mild multilevel intervertebral disc space narrowing. Mild dextrorotation or scoliosis centering in the mid and lower thoracic spine region. Procedure Note Marquez White MD - 07/15/2024 PROCEDURE: XR THORACIC SPINE 2VW, DATE/TIME OF EXAM: 07/15/2024 12:45PM, LOCATION [facility] INDICATION: M54.6: Thoracic spine pain ADDITIONAL CLINICAL INFORMATION: Ordering Provider Reason For Exam: Technologist Note: Additional: COMPARISON: 01/17/2024 MRI Thoracic spine FINDINGS: Upright full length AP and lateral views were obtained. The vertebral bodies are normally aligned on the lateral projection.There is no fracture or compression deformity. Mild multilevel intervertebral disc space narrowing. Mild dextrorotation or scoliosis centering in themid and lower thoracic spine region. IMPRESSION: No acute fracture or lateral malalignment identified. Dextrorotation or scoliosis. Right hilar prominence may be vascular in etiology but underlying right hilar lung mass and/or adenopathy cannot be excluded. Suggestcorrelation with a PA and lateral upright chest radiographic study. Report dictated by Bobby Abarca MD (vice president of news). I, Maruqez White MD have personally reviewed and interpreted this examination/study. > Interpreting Provider: Marquez White MD on 07/15/2024 3:54 PM Regino Waite MD DIAGNOSTIC IMAGING [facility] documented in this encounter Visit Diagnoses Diagnosis Thoracic spine pain Pain in thoracic spine documented in this encounter Care Teams Health Information Internship Relationship Specialty Start Date End Date Catia Atkins MD [address] [place] [address] [address] [place] [address] PCP - General 06/28/19 documented as of this encounter
--- OUTSIDE RECORDS SUMMARY | 2024-12-04 20:29 | XMS_ITS | Clinical Summary ---
Author Organization [facility] Address [address] [place] [address] Care Team Providers Care Hose Stripper Name Role Phone Catia Atkins MD Primary Care Provider [phone] Source Comments [facility],non-owned Affiliates and Associated Physician Practices is amultiple site organization consisting of ambulatory clinics and hospital sitesin [place], [place], [place] and [place]. This disclosure is being madepursuant to the Care Everywhere program and may not contain all information available regarding this patient. Last updated 18.[facility] Allergies No known active allergies Medications * Be aware that medications may not be up to date on this document. Alwaysverify current medications with the patient. Medication Sig Dispensed Refills Start Date End Date Status acetaminophen (Tylenol) 325 MG tablet Take 1 (one) tablet by mouth every 4 hours as needed for Fever or Pain Maximum allowable Acetaminophen amount = 4 Grams (4000 mg) / 24 hours. Active calcium carbonate (Calci-Chew) 1250 (500 Ca) MG chew tablet Take 1 (one) tablet by mouth 4 times daily as needed after meals/at bedtime for Heartburn Active Eliquis 2.5 MG tablet Take 2 (two) tablets by mouth 2 times daily 03/26/2023 Active baclofen (Lioresal) 10 MG tabletIndications: Transverse myelitis (HCC) Take 1 (one) tablet by mouth at bedtime May cause drowsiness. 90 tablet 3 03/27/2023 Active Additional Information Patient taking differently:10 mg OralAT BEDTIME PRN, Muscle Spasms, May cause drowsiness., Reported on 07/15/2024 vitamin D, cholecalciferol, 50 MCG (2000 UT) tablet Take 2 (two) tablets by mouth once daily Active vitamin b-12 (Cyancobalamin) 1000 MCG tablet cr Take by mouth once daily Patient did not know or indicate the dosage- TS Active magnesium 250 MG tablet Take 1 (one) tablet by mouth once daily Active Active Problems Problem Noted Date Diagnosed Date Low back pain 07/05/2024 Spasm 09/30/2023 Acute viral transverse myelitis 07/01/2023 Onychomycosis of toenail 04/08/2023 Chronic unhm-[id number] syndrome 03/31/2023 Acute transverse myelitis 09/27/2022 Transverse myelitis 09/27/2022 Occult blood in stools 04/06/2015 Lumbago 12/27/2014 03/27/2023 Family History Medical History Relation Name Comments None Known Father Status: Alive Arthritis - Osteo Mother Status: De ceased Relation Name Status Comments Father Mother Social History Tobacco Use Types Packs/Day Years [...] on file Sexual Orientation Not on file Last Filed Vital Signs Vital Sign Reading Time Taken Comments Blood Pressure 124/81 08/23/2024 9:36 AM CDT Pulse 75 08/23/2024 9:36 AM CDT Temperature 36.5 ??C (97.7 ??F) 08/23/2024 9:36 AM CD T Respiratory Rate 16 10/01/2022 4:10 AM WEIGHT LOSS PHYSICIAN Oxygen Saturation 94% 08/23/2024 9:36 AM CDT Inhaled Oxygen Concentration - - Weight 81.6 kg (180 lb) 08/23/2024 9:36 AM CDT Height 177.8 cm (5' 10) 08/23/2024 9:36 AM CDT Body Mass Index 25.83 08/23/2024 9:36 AM CDT Plan of Treatment Health Maintenance Due Date Last Done Comments COLOGUARD (AGES 45-75) - COLON CA SCREENING 1961 COLON MONITORING 1961 COLONOSCOPY - COLON CA SCREENING 1961 CT COLONOGRAPHY - COLON CA SCREENING 1960 Colorectal Cancer Screening 1961 FIT - COLON CA SCREENING 1961 FLEX SIG - COLON CA SCREENING 1961 LIPID TESTING 1961 HIV SCREENING 1976 HEPATITIS C SCREENING 12/11/1979 DTAP/TDAP/TD VACCINES (1 - Tdap) 1980 ZOSTER VACCINE (1 of 2) 2011 MEDICARE AWV ? CALENDAR YEAR 2023 COVID-19 VACCINE ( - 2023- season) 2024 INFLUENZA VACCINE (#1) 2024 SCREENING FOR DIABETES 10/01/2025 , 09/30/2022, 09/29/2022, Additional history exists Respiratory Syncytial Virus (RSV) Vaccine Pt: or over 60 yrs (1 - 1-dose 75+ series) 2036 DEPRESSION SCREENING Completed 07/15/2024 HEPATITIS B VACCINE Aged Out No longe r eligible based on patient's age to complete this topic HIB VACCINE Aged Out No longer eligi ble based on patient's age to complete this topic HPV VACCINE Aged Out No longer eligi ble based on patient's age to complete this topic MENINGOCOCCAL VACCINE Aged Out No marcio hattei eligible based on patient's age to complete this topic PNEUMOCOCCAL VACCINE Aged Out No long er eligible based on patient's age to complete this topic Procedures Procedure Name Priority Date/Time Associated Diagnosis Comments BASIC METABOLIC PANEL (CALCIUM TOTAL) Routine 10/01/2022 1:43 AM WEIGHT LOSS PHYSICIAN from Last 3 Months or Most Recently Relevant to Health Maintenance Results * (ABNORMAL) BASIC METABOLIC PANEL (CALCIUM TOTAL) (10/01/2022 1:43 AM WEIGHT LOSS PHYSICIAN) BUN 20 7 - 26 mg/dL 10/01/2022 2:20 AM [facility] Creatinine 0.71 0.71 - 1.16 mg/dL 10/01/2022 2:20 AM [facility] Sodium 137 136 - 145 mmol/L 10/01/2022 2:20 AM [facility] Potassium 3.8 3.5 - 4.5 mmol/L 10/01/2022 2:20 AM [facility] Chloride 106 98 - 107 mmol/L 10/01/2022 2:20 AM [facility] CO2 23 22 - 29 mmol/L 10/01/2022 2:20 AM [facility] Glucose 107 70 - 115 mg/dL 10/01/2022 2:20 AM [facility] Calcium 8.5 8.4 - 10.2 mg/dL 10/01/2022 2:20 AM [facility] Anion Gap 12 8 - 18 10/01/2022 2:20 AM [facility] BUN/Creatinine Ratio 28(H) 7 - 23 10/01/2022 2:20 AM [facility] Osmolality Calculated 287 270 - 300 mOsm/kg 10/01/2022 2:20 AM [facility] eGFR by CKD-EPI >90 >=90 mL/min/1.7 3 m2 10/01/2022 2:20 AM [facility] Blood BLOOD SPECIMEN / Unknown Lab Venipuncture / Unknown 10/01/2022 1:43 AM WEIGHT LOSS PHYSICIAN 10/01/2022 1:53 AM WEIGHT LOSS PHYSICIAN Ramon Gonzalez MD LAB - CHEMISTRY [facility] [address] [place] [address], [facility] [phone] from Last 3 Months or Most Recently Relevant to Health Maintenance Advance Directives * Full Code (Latest Code Status on File) Date Activated Date Inactivated Comments 09/27/2022 11:59 PM 10/01/2022 5:22 PM Care Teams Hose Stripper Relationship Specialty Start Date End Date Catia Atkins MD [facility] [place] [address] PCP - General 06/28/19
--- OUTSIDE RECORDS SUMMARY | 2024-12-04 20:29 | XMS_ITS | Patient Health Summary ---
Author Organization [facility] Address [address] 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 This disclosure is being madepursuant to the Care Everywhere program and may not contain all information available regarding this patient. Last updated 18.[facility] Allergies No known active allergies Medications * Be aware that medications may not be up to date on this document. Alwaysverify current medications with the patient. * acetaminophen (Tylenol) 325 MG tablet Take 1 (one) tablet by mouth every 4 hours as needed for Fever or Pain Maximum allowable Acetaminophen amount = 4 Grams (4000 mg) / 24 hours. * calcium carbonate (Calci-Chew) 1250 (500 Ca) MG chew tablet Take 1 (one) tablet by mouth 4 times daily as needed after meals/at bedtime for Heartburn * Eliquis 2.5 MG tablet(Started 03/26/2023) Take 2 (two) tablets by mouth 2 times daily * baclofen (Lioresal) 10 MG tablet(Started 03/27/2023) Take 1 (one) tablet by mouth at bedtime May cause drowsiness. 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 Acute transverse myelitis 09/27/2022 Transverse myelitis 09/27/2022 Occult blood in stools 04/06/2015 Lumbago 12/27/2014 03/27/2023 Social History Tobacco Use Types Packs/Day Years [...] T Respiratory Rate 16 10/01/2022 4:10 AM 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 Oxygen Saturation 94% 08/23/2024 9:36 AM CDT Inhaled Oxygen Concentration - - Weight 81.6 kg (180 lb) 08/23/2024 9:36 AM CDT Height 177.8 cm (5' 10) 08/23/2024 9:36 AM CDT Body Mass Index 25.83 08/23/2024 9:36 AM CDT Procedures * XR LUMBAR SPINE 4VW OR MORE(Performed 07/15/2024) Performed for Lumbar pain * XR THORACIC SPINE 2VW(Performed 07/15/2024) Performed for Thoracic spine pain * MRI THORACIC SPINE WWO CONT(Performed 01/17/2024) Performed for Transverse myelitis (HCC) * MRI CERVICAL SPINE WWO CONT(Performed 01/17/2024) Performed for Transverse myelitis (HCC) * MRI BRAIN WWO CONTRAST(Performed 01/17/2024) Performed for Transverse myelitis (HCC) * CREATININE - POCT INTERFACED(Performed 01/17/2024) * TRAFFIC ATTENDANT DEMYELINATING DISEASE EVAL BLOOD(Performed 03/27/2023) Performed for Acute transverse myelitis (HCC) * ENCEPHALOPATHY AUTOIMMUNE EVAL BLOOD(Performed 03/27/2023) Performed for Acute transverse myelitis (HCC) * CORNEJO/HAND BUNCH MAKER (ARNAUD) ANTIBODY IGG(Performed 03/27/2023) Performed for Transverse myelitis (HCC) * METHYLMALONIC ACID BLOOD(Performed 03/27/2023) Performed for Transverse myelitis (HCC) * VITAMIN B12(Performed 03/27/2023) Performed for Transverse myelitis (HCC) * MPO/OR 3 AUTOANTIBODIES PANEL(Performed 03/27/2023) Performed for Transverse myelitis (HCC) * SS-B (SJOGREN'S) ANTIBODY(Performed 03/27/2023) Performed for Transverse myelitis (HCC) * HTLV-I/II ANTIBODY W REFLEX CONFIRM(Performed 03/27/2023) Performed for Transverse myelitis (HCC) * DNA ANTIBODY DS CRITHIDIA TITER(Performed 03/27/2023) Performed for Acute transverse myelitis (HCC), Transverse myelitis (HCC) * JUANY BLOOD SCREEN W/REFLEX TITER(Performed 03/27/2023) Performed for Acute transverse myelitis (HCC), Transverse myelitis (HCC) * SS-A (SJOGREN'S) 52+60 ANTIBODIES(Performed 03/27/2023) Performed for Acute transverse myelitis (HCC), Transverse myelitis (HCC) * TSH REFLEX FREE T4(Performed 03/27/2023) Performed for Acute transverse myelitis (HCC), Transverse myelitis (HCC) * CYCLIC CITRULLINATED PEPTIDE(CCP) AB IGG(Performed 03/27/2023) Performed for Transverse myelitis (HCC) * CBC W/O DIFFERENTIAL(Performed 10/01/2022) * BASIC METABOLIC PANEL (CALCIUM TOTAL)(Performed 10/01/2022) * OLIGOCLONAL BANDS CSF+BLOOD PANEL(Performed 09/30/2022) Performed for Transverse myelitis (HCC) * GLUCOSE CSF(Performed 09/30/2022) Performed for Transverse myelitis (HCC) * VDRL CSF W REFLEX TO TITER(Performed 09/30/2022) Performed for Transverse myelitis (HCC) * PROTEIN CSF(Performed 09/30/2022) Performed for Transverse myelitis (HCC) * HERPES SIMPLEX 1+2 PCR CSF(Performed 09/30/2022) Performed for Transverse myelitis (HCC) * CELL COUNT W DIFFERENTIAL CSF(Performed 09/30/2022) Performed for Transverse myelitis (HCC) * HOLD SPECIMEN CSF(Performed 09/30/2022) Performed for Transverse myelitis (HCC) * GRAM STAIN (LAB ORDERED)(Performed 09/30/2022) Performed for Transverse myelitis (HCC) * CULTURE CSF+GRAM STAIN(Performed 09/30/2022) Performed for Transverse myelitis (HCC) * CULTURE CSF+GRAM STAIN(Performed 09/30/2022) Performed for Transverse myelitis (HCC) * JUANY HEP-2 IGG BY IFA(Performed 09/30/2022) Performed for Transverse myelitis (HCC) * ANCA VASCULITIS PANEL(Performed 09/30/2022) Performed for Transverse myelitis (HCC) * JUANY BLOOD SCREEN W/REFLEX TITER(Performed 09/30/2022) Performed for Transverse myelitis (HCC) * CBC W/O DIFFERENTIAL(Performed 09/30/2022) * BASIC METABOLIC PANEL (CALCIUM TOTAL)(Performed 09/30/2022) * URINE MICROSCOPIC ONLY REFLEX TO CULTURE(Performed 09/29/2022) * DRUG SCREEN EXPANDED TOXICOLOGY URINE PANEL(Performed 09/29/2022) * URINALYSIS REFLEX MICROSCOPIC REFLEX CULTURE(Performed 09/29/2022) * CULTURE URINE(Performed 09/29/2022) * IMMUNOGLOBULINS IGG/IGM/IGA PANEL(Performed 09/29/2022) * LYME DISEASE TOTAL AB W RFLX IMMUNOASSAY(Performed 09/29/2022) * JUANY BLOOD SCREEN W/REFLEX TITER(Performed 09/29/2022) * SYPHILIS ANTIBODY CASCADING REFLEX(Performed 09/29/2022) * CBC W/O DIFFERENTIAL(Performed 09/29/2022) * GANGLIOSIDE (GM1,GD1B,GQ1B) ANTIBODY IGG/IGM(Performed 09/29/2022) * BASIC METABOLIC PANEL (CALCIUM TOTAL)(Performed 09/29/2022) * MRI LUMBAR SPINE WWO CONTRAST(Performed 09/29/2022) Performed for Transverse myelitis (HCC) * PLATELET COUNT AUTO(Performed 09/28/2022) * CREATININE BLOOD(Performed 09/28/2022) * TRAFFIC ATTENDANT DEMYELINATING DISEASE EVAL BLOOD(Performed 09/28/2022) * MRI BRAIN WWO CONTRAST(Performed 09/27/2022) Performed for Transverse myelitis (HCC) * MRI THORACIC SPINE WWO CONT(Performed 09/27/2022) Performed for Transverse myelitis (HCC) * MRI CERVICAL SPINE WWO CONT(Performed 09/27/2022) Performed for Transverse myelitis (HCC) * NMO/AQP4 FACS AB RFLX TITER(Performed 09/27/2022) * COMPREHENSIVE METABOLIC PANEL(Performed 09/27/2022) * CBC W AUTO DIFFERENTIAL(Performed 09/27/2022) * XR SPINE ENTIRE 2 OR 3VW(Performed 03/29/2019) Performed for Low back pain, unspecified back pain laterality, unspecified chronicity, with sciatica presence unspecified * XR LUMBAR SPINE 2 OR 3VW(Performed 01/02/2018) Results * XR Lumbar Spine 4Vw or More (07/15/2024 12:45 PM CDT) Anatomical Region Laterality Modality Spine Radiographic Zaynab ging 07/15/2024 2:46 PM CDT Impressions 07/15/2024 3:47 PM CDT IMPRESSION: Severe degenerative disc disease from L2-L3 through L4-L5. Moderate to severe degenerative disc disease at L5-S1. Mild levoscoliosis, possibly positional, representing a change in appearance as compared to the prior study. Report dictated by Bobby Abarca MD (radiology technician). I, Marquez White MD have personally reviewed and interpreted this examination/study. > Interpreting Provider: Marquez Whiet MD on 07/15/2024 3:47 PM Narrative 07/15/2024 3:47 PM CDT PROCEDURE: ??XR LUMBAR SPINE 4VW OR MORE, DATE/TIME OF EXAM: ??07/15/2024 12:45 PM, LOCATION ??[facility] INDICATION: M54.50: Lumbar pain ADDITIONAL CLINICAL INFORMATION: Ordering Provider Reason For Exam: ??Office visit Technologist Note: Additional: COMPARISON: 01/02/2018 lumbar spine radiograph FINDINGS: Upright AP, neutral lateral, lateral flexion, and lateral extension views submitted for interpretation. There is satisfactory bony to flex and extend lumbar spine without associated subluxation or slippage. Levocurvature of the lumbar spine, which may be positional. There is loss of the normal lumbar lordosis with straightening of the lumbar spine that persists on flexion and extension views. No listhesis. There is no fracture or compression deformity. There is severe multilevel intervertebral disc space narrowing, predominantly at L2-L3, L3-L4, and L4-L5 with multilevel anterior marginal osteophytes. At least moderate degenerative disc disease noted at L5-S1. Multilevel facet arthropathy. Procedure Note Marquez White MD - 07/15/2024 PROCEDURE: XR LUMBAR SPINE 4VW OR MORE, DATE/TIME OF EXAM: 07/15/2024 12:45 PM, LOCATION [facility] INDICATION: M54.50: Lumbar pain ADDITIONAL CLINICAL INFORMATION: Ordering Provider Reason For Exam: Office visit Technologist Note: Additional: COMPARISON: 01/02/2018 lumbar spine radiograph FINDINGS: Upright AP, neutral lateral, lateral flexion, and lateral extensionviews submitted for interpretation. There is satisfactory bony to flex andextend lumbar spine without associated subluxation or slippage. Levocurvature of the lumbar spine, which may be positional. There isloss of the normal lumbar lordosis with straightening of the lumbar spinethat persists on flexion and extension views. No listhesis. There is nofracture or compression deformity. There is severe multilevel intervertebral disc space narrowing, predominantly at L2-L3, L3-L4, and L4-L5 withmultilevel anterior marginal osteophytes. At least moderate degenerative discdisease noted at L5-S1. Multilevel facet arthropathy. IMPRESSION: Severe degenerative disc disease from L2-L3 through L4-L5. Moderate to severe degenerative disc disease at L5-S1. Mild levoscoliosis, possibly positional, representing a change in appearance as compared to the prior study. Report dictated by Bobby Abarca MD (radiology technician). Marquez Graf MD have personally reviewed and interpreted this examination/study. > Interpreting Provider: Marquez White MD on 07/15/2024 3:47 PM Regino Waite MD DIAGNOSTIC IMAGING O RDERABLES * XR Thoracic Spine 2Vw (07/15/2024 12:45 [...] study. Report dictated by Bobby Abarca MD (radiology technician). Marquez Graf MD have personally reviewed and interpreted this examination/study. > Interpreting Provider: Marquez White MD on 07/15/2024 3:54 PM Narrative 07/15/2024 3:54 PM CDT PROCEDURE: ??XR THORACIC SPINE 2VW, DATE/TIME OF EXAM: ??07/15/2024 12:45 PM, LOCATION ??[facility] INDICATION: M54.6: Thoracic spine pain ADDITIONAL CLINICAL [...] 2VW, DATE/TIME OF EXAM: 07/15/2024 12:45PM, LOCATION [facility] INDICATION: M54.6: Thoracic spine pain ADDITIONAL CLINICAL [...] study. Report dictated by Bobby Abarca MD (radiology technician). I, Marquez White MD have personally reviewed and interpreted this examination/study. > Interpreting Provider: Marquez White MD on 07/15/2024 3:54 PM Regino Waite MD DIAGNOSTIC IMAGING O RDERABLES * MRI THORACIC SPINE WWO CONT (01/17/2024 5:34 PM 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) Only the most recent of2 resultswithin the time period is included. Anatomical Region Laterality Modality Spine Magnetic Resonan ce 01/17/2024 8:32 PM 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 Impressions 01/18/2024 8:10 PM 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 IMPRESSION: 1.Interval resolution of the previously seen FLAIR signal and abnormal enhancement involving the right superior cerebellar peduncle. 2.No new acute intracranial findings or abnormal intracranial enhancement are identified. 3.Interval resolution of the previously seen patchy enhancement in the cervical cord at the levels of C4 and C6. Findings are compatible with resolution of the previously seen sequela of patient's prior transverse myelitis. No evidence of disease recurrence. No active disease is identified. 4.No acute findings or abnormal enhancement in the thoracic spine. 5.Multilevel degenerative disc and joint disease as outlined above. > Interpreting Provider: Susana Graf MD on 01/18/2024 8:10 PM Narrative 01/18/2024 8:10 PM 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 PROCEDURE: ??MRI BRAIN WWO CONTRAST, MRI CERVICAL SPINE WWO CONT, MRI THORACIC SPINE WWO CONT, DATE/TIME OF EXAM: ??01/17/2024 5:33 PM, LOCATION [facility] INDICATION: G37.3: Transverse myelitis ([facility]) ADDITIONAL CLINICAL INFORMATION: Ordering Provider Reason For Exam: ??Transverse myelitis. Technologist Note: ??None Additional: ??None. CONTRAST: ??GADOBUTROL 1 MMOL/ML IV SSM SO:8 mL EXAMINATION: 1.Magnetic resonance imaging (MRI) of the brain without and with contrast 2.MRI of the cervical and thoracic spine without and with contrast TECHNIQUE: MRI of the brain, cervical, and thoracic spine was performed prior to and following the uneventful administration of 8 mL intravenous GADAVIST contrast according to standard protocol. COMPARISON: MRI of the brain, cervical, thoracic spine from 09/28/2022. FINDINGS: Brain: No evidence of acute or chronic hemorrhage is identified. No evidence of acute cerebral infarction is seen. There is mild cerebral volume loss with associated ex vacuo ventricular dilatation. No mass effect or midline shift is seen. Interval resolution of the previously seen abnormal enhancement and edema in the right superior cerebellar peduncle, with decreased associated FLAIR hyperintensity compared to the prior. Subtle residual FLAIR hyperintensity and decreased caliber of this region, could represent residual gliosis. No enhancing lesions are otherwise identified. The pituitary gland is is stable in appearance. The corpus callosum and sella appear otherwise grossly unremarkable. The posterior fossa and brainstem appear otherwise grossly unremarkable. The visualized portions of the orbits appear grossly unremarkable. There is mild paranasal sinus disease. Retained secretions in the left maxillary sinus. There is mild fluid signal in the mastoid air cells bilaterally, perhaps slightly decreased compared to the prior. Normal flow voids are demonstrated in the carotid arteries and basilar artery. The calvarium appears grossly stable. Cervical spine: The images are significantly degraded due to motion artifacts. Within this limitation: Relative straightening of the cervical lordosis. The alignment is otherwise maintained. Vertebral bodies are normal in height without evidence of compression fractures. Heterogenous marrow signal with associated endplate degenerative changes, worst at C4-C5 and C5-C6, C6-C7. The bone marrow signal appear otherwise grossly unremarkable. The craniocervical junction appears normal. Minimal cord abutment at multiple levels. The spinal cord appears otherwise grossly unremarkable. Previously seen minimal patchy enhancement in the posterior aspects of the cervical cord at the level of C4 and C6 is not seen on the current study. Perhaps there is a residual tiny focus of T2 hyperintensity at the previously seen C6 enhancement and T2/STIR hyperintensity also decreased compared to the prior. There is mild disc height loss at multiple levels. No high-grade central canal stenosis is seen. There are varying degrees of mild facet osteoarthritis. There are varying degrees of mild uncovertebral joint osteoarthritis with the same degree of neural foraminal stenosis at these levels. No soft tissue abnormality is identified. Normal flow voids are identified in the vertebral arteries. Borderline developmental cervical spinal canal stenosis and superimposed multilevel degenerative disc and joint disease as follows: At C2-C3: Minimal disc bulge/disc osteophyte complex. The spinal canal and neural foramina patent. At C3-C4: Mild disc bulge. Mild hypertrophy of the ligamentum flavum. Mild spinal canal stenosis. Mild bilateral facet arthropathy. Minimal right neural foraminal narrowing. No significant neural foraminal stenosis. At C4-C5: Diffuse disc bulge. Mild hypertrophy of the ligamentum flavum. Mild spinal canal stenosis. Mild bilateral facet arthropathy and uncovertebral hypertrophy. Mild bilateral neural foraminal stenosis. At C5-C6: Diffuse disc bulge/disc osteophyte complex. Hypertrophy of the ligamentum flavum. Moderate spinal canal stenosis. Bilateral facet arthropathy and uncovertebral hypertrophy. Moderate to severe right and mild left neural foraminal stenosis. At C6-C7: Bulge/disc osteophyte complex. Hypertrophy of the ligamentum flavum. Moderate spinal canal stenosis. Bilateral facet arthropathy and uncovertebral hypertrophy. Moderate or moderate to severe bilateral neural foraminal stenosis. At C7-T1: Mild hypertrophy of the liver. The spinal canal and neural foramina are patent. Thoracic spine: The images are degraded due to motion artifacts. Within this limitation: The alignment is normal. Vertebral bodies are normal in height without evidence of compression fractures. Marrow signal intensity is normal. The spinal cord appears normal. No abnormal enhancement is identified. There is mild degenerative disc disease. No significant central canal stenosis is seen. The facets appear normal. No neural foraminal stenosis is seen. No soft tissue abnormality is identified. Procedure Note Susana Graf MD - 01/18/2024 PROCEDURE: MRI BRAIN WWO CONTRAST, MRI CERVICAL SPINE WWO CONT, MRI THORACIC SPINE WWO CONT, DATE/TIME OF EXAM: 01/17/2024 5:33 PM, LOCATION [facility] INDICATION: G37.3: Transverse myelitis ([facility]) ADDITIONAL CLINICAL INFORMATION: Ordering Provider Reason For Exam: Transverse myelitis. Technologist Note: None Additional: None. CONTRAST: GADOBUTROL 1 MMOL/ML IV SSM SO:8 mL EXAMINATION: 1.Magnetic resonance imaging (MRI) of the brain without and withcontrast 2.MRI of the cervical and thoracic spine without and with contrast TECHNIQUE: MRI of the brain, cervical, and thoracic spine was performed prior to and following the uneventful administration of 8 mL intravenous GADAVIST contrast according to standard protocol. COMPARISON: MRI of the brain, cervical, thoracic spine from 09/28/2022. FINDINGS: Brain: No evidence of acute or chronic hemorrhage is identified. No evidence of acute cerebral infarction is seen. There is mild cerebral volume losswith associated ex vacuo ventricular dilatation. No mass effect or midlineshift is seen. Interval resolution of the previously seen abnormal enhancement and edema in the right superior cerebellar peduncle, with decreased associated FLAIR hyperintensity compared to the prior. Subtle residual FLAIR hyperintensity and decreased caliber of this region, couldrepresent residual gliosis. No enhancing lesions are otherwise identified. The pituitary gland is is stable in appearance. The corpus callosum andsella appear otherwise grossly unremarkable. The posterior fossa and brainstem appear otherwise grossly unremarkable. The visualized portions of the orbits appear grossly unremarkable. Thereis mild paranasal sinus disease. Retained secretions in the left maxillary sinus. There is mild fluid signal in the mastoid air cells bilaterally, perhaps slightly decreased compared to the prior. Normal flow voids are demonstrated in the carotid arteries and basilar artery. The calvarium appears grossly stable. Cervical spine: The images are significantly degraded due to motion artifacts. Within this limitation: Relative straightening of the cervical lordosis. The alignment isotherwise maintained. Vertebral bodies are normal in height without evidence of compression fractures. Heterogenous marrow signal with associatedendplate degenerative changes, worst at C4-C5 and C5-C6, C6-C7. The bone marrow signal appear otherwise grossly unremarkable. The craniocervicaljunction appears normal. Minimal cord abutment at multiple levels. The spinalcord appears otherwise grossly unremarkable. Previously seen minimal patchy enhancement in the posterior aspects of the cervical cord at the levelof C4 and C6 is not seen on the current study. Perhaps there is a residual tiny focus of T2 hyperintensity at the previously seen C6 enhancementand T2/STIR hyperintensity also decreased compared to the prior. There is mild disc height loss at multiple levels. No high-grade central canal stenosis is seen. There are varying degrees of mild facet osteoarthritis. There are varying degrees of mild uncovertebral joint osteoarthritis with the same degree of neural foraminal stenosis atthese levels. No soft tissue abnormality is identified. Normal flow voids are identified in the vertebral arteries. Borderline developmental cervical spinal canal stenosis and superimposed multilevel degenerative disc and joint disease as follows: At C2-C3: Minimal disc bulge/disc osteophyte complex. The spinal [place] neural foramina patent. At C3-C4: Mild disc bulge. Mild hypertrophy of the ligamentum flavum.Mild spinal canal stenosis. Mild bilateral facet arthropathy. Minimal right neural foraminal narrowing. No significant neural foraminal stenosis. At C4-C5: Diffuse disc bulge. Mild hypertrophy of the ligamentum flavum. Mild spinal canal stenosis. Mild bilateral facet arthropathy and uncovertebral hypertrophy. Mild bilateral neural foraminal stenosis. At C5-C6: Diffuse disc bulge/disc osteophyte complex. Hypertrophy of the ligamentum flavum. Moderate spinal canal stenosis. Bilateral facet arthropathy and uncovertebral hypertrophy. Moderate to severe right and mild left neural foraminal stenosis. At C6-C7: Bulge/disc osteophyte complex. Hypertrophy of the ligamentum flavum. Moderate spinal canal stenosis. Bilateral facet arthropathy and uncovertebral hypertrophy. Moderate or moderate to severe bilateralneural foraminal stenosis. At C7-T1: Mild hypertrophy of the liver. The spinal canal and neural foramina are patent. Thoracic spine: The images are degraded due to motion artifacts. Within this limitation: The alignment is normal. Vertebral bodies are normal in height without evidence of compression fractures. Marrow signal intensity is normal.The spinal cord appears normal. No abnormal enhancement is identified. There is mild degenerative disc disease. No significant central canal stenosis is seen. The facets appear normal. No neural foraminal stenosisis seen. No soft tissue abnormality is identified. IMPRESSION: 1.Interval resolution of the previously seen FLAIR signal and abnormal enhancement involving the right superior cerebellar peduncle. 2.No new acute intracranial findings or abnormal intracranialenhancement are identified. 3.Interval resolution of the previously seen patchy enhancement in the cervical cord at the levels of C4 and C6. Findings are compatible with resolution of the previously seen sequela of patient's prior transverse myelitis. No evidence of disease recurrence. No active disease is identified. 4.No acute findings or abnormal enhancement in the thoracic spine. 5.Multilevel degenerative disc and joint disease as outlined above. > Interpreting Provider: Susana Graf MD on 01/18/2024 8:10 PM Genie Hoffmann MD MR ORDERABLES * MRI CERVICAL SPINE WWO CONT (01/17/2024 5:33 PM 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) Only the most recent of2 resultswithin the time period is included. Anatomical Region Laterality Modality Spine Magnetic Resonan ce 01/17/2024 8:32 PM 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 Impressions 01/18/2024 8:10 PM 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 IMPRESSION: 1.Interval resolution of the previously seen FLAIR signal and abnormal enhancement involving the right superior cerebellar peduncle. 2.No new acute intracranial findings or abnormal intracranial enhancement are identified. 3.Interval resolution of the previously seen patchy enhancement in the cervical cord at the levels of C4 and C6. Findings are compatible with resolution of the previously seen sequela of patient's prior transverse myelitis. No evidence of disease recurrence. No active disease is identified. 4.No acute findings or abnormal enhancement in the thoracic spine. 5.Multilevel degenerative disc and joint disease as outlined above. > Interpreting Provider: Susana Graf MD on 01/18/2024 8:10 PM Narrative 01/18/2024 8:10 PM 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 PROCEDURE: ??MRI BRAIN WWO CONTRAST, MRI CERVICAL SPINE WWO CONT, MRI THORACIC SPINE WWO CONT, DATE/TIME OF EXAM: ??01/17/2024 5:33 PM, LOCATION [facility] INDICATION: G37.3: Transverse myelitis ([facility]) ADDITIONAL CLINICAL INFORMATION: Ordering Provider Reason For Exam: ??Transverse myelitis. Technologist Note: ??None Additional: ??None. CONTRAST: ??GADOBUTROL 1 MMOL/ML IV SSM SO:8 mL EXAMINATION: 1.Magnetic resonance imaging (MRI) of the brain without and with contrast 2.MRI of the cervical and thoracic spine without and with contrast TECHNIQUE: MRI of the brain, cervical, and thoracic spine was performed prior to and following the uneventful administration of 8 mL intravenous GADAVIST contrast according to standard protocol. COMPARISON: MRI of the brain, cervical, thoracic spine from 09/28/2022. FINDINGS: Brain: No evidence of acute or chronic hemorrhage is identified. No evidence of acute cerebral infarction is seen. There is mild cerebral volume loss with associated ex vacuo ventricular dilatation. No mass effect or midline shift is seen. Interval resolution of the previously seen abnormal enhancement and edema in the right superior cerebellar peduncle, with decreased associated FLAIR hyperintensity compared to the prior. Subtle residual FLAIR hyperintensity and decreased caliber of this region, could represent residual gliosis. No enhancing lesions are otherwise identified. The pituitary gland is is stable in appearance. The corpus callosum and sella appear otherwise grossly unremarkable. The posterior fossa and brainstem appear otherwise grossly unremarkable. The visualized portions of the orbits appear grossly unremarkable. There is mild paranasal sinus disease. Retained secretions in the left maxillary sinus. There is mild fluid signal in the mastoid air cells bilaterally, perhaps slightly decreased compared to the prior. Normal flow voids are demonstrated in the carotid arteries and basilar artery. The calvarium appears grossly stable. Cervical spine: The images are significantly degraded due to motion artifacts. Within this limitation: Relative straightening of the cervical lordosis. The alignment is otherwise maintained. Vertebral bodies are normal in height without evidence of compression fractures. Heterogenous marrow signal with associated endplate degenerative changes, worst at C4-C5 and C5-C6, C6-C7. The bone marrow signal appear otherwise grossly unremarkable. The craniocervical junction appears normal. Minimal cord abutment at multiple levels. The spinal cord appears otherwise grossly unremarkable. Previously seen minimal patchy enhancement in the posterior aspects of the cervical cord at the level of C4 and C6 is not seen on the current study. Perhaps there is a residual tiny focus of T2 hyperintensity at the previously seen C6 enhancement and T2/STIR hyperintensity also decreased compared to the prior. There is mild disc height loss at multiple levels. No high-grade central canal stenosis is seen. There are varying degrees of mild facet osteoarthritis. There are varying degrees of mild uncovertebral joint osteoarthritis with the same degree of neural foraminal stenosis at these levels. No soft tissue abnormality is identified. Normal flow voids are identified in the vertebral arteries. Borderline developmental cervical spinal canal stenosis and superimposed multilevel degenerative disc and joint disease as follows: At C2-C3: Minimal disc bulge/disc osteophyte complex. The spinal canal and neural foramina patent. At C3-C4: Mild disc bulge. Mild hypertrophy of the ligamentum flavum. Mild spinal canal stenosis. Mild bilateral facet arthropathy. Minimal right neural foraminal narrowing. No significant neural foraminal stenosis. At C4-C5: Diffuse disc bulge. Mild hypertrophy of the ligamentum flavum. Mild spinal canal stenosis. Mild bilateral facet arthropathy and uncovertebral hypertrophy. Mild bilateral neural foraminal stenosis. At C5-C6: Diffuse disc bulge/disc osteophyte complex. Hypertrophy of the ligamentum flavum. Moderate spinal canal stenosis. Bilateral facet arthropathy and uncovertebral hypertrophy. Moderate to severe right and mild left neural foraminal stenosis. At C6-C7: Bulge/disc osteophyte complex. Hypertrophy of the ligamentum flavum. Moderate spinal canal stenosis. Bilateral facet arthropathy and uncovertebral hypertrophy. Moderate or moderate to severe bilateral neural foraminal stenosis. At C7-T1: Mild hypertrophy of the liver. The spinal canal and neural foramina are patent. Thoracic spine: The images are degraded due to motion artifacts. Within this limitation: The alignment is normal. Vertebral bodies are normal in height without evidence of compression fractures. Marrow signal intensity is normal. The spinal cord appears normal. No abnormal enhancement is identified. There is mild degenerative disc disease. No significant central canal stenosis is seen. The facets appear normal. No neural foraminal stenosis is seen. No soft tissue abnormality is identified. Procedure Note Susana Graf MD - 01/18/2024 PROCEDURE: MRI BRAIN WWO CONTRAST, MRI CERVICAL SPINE WWO CONT, MRI THORACIC SPINE WWO CONT, DATE/TIME OF EXAM: 01/17/2024 5:33 PM, LOCATION [facility] INDICATION: G37.3: Transverse myelitis ([facility]) ADDITIONAL CLINICAL INFORMATION: Ordering Provider Reason For Exam: Transverse myelitis. Technologist Note: None Additional: None. CONTRAST: GADOBUTROL 1 MMOL/ML IV SSM SO:8 mL EXAMINATION: 1.Magnetic resonance imaging (MRI) of the brain without and withcontrast 2.MRI of the cervical and thoracic spine without and with contrast TECHNIQUE: MRI of the brain, cervical, and thoracic spine was performed prior to and following the uneventful administration of 8 mL intravenous GADAVIST contrast according to standard protocol. COMPARISON: MRI of the brain, cervical, thoracic spine from 09/28/2022. FINDINGS: Brain: No evidence of acute or chronic hemorrhage is identified. No evidence of acute cerebral infarction is seen. There is mild cerebral volume losswith associated ex vacuo ventricular dilatation. No mass effect or midlineshift is seen. Interval resolution of the previously seen abnormal enhancement and edema in the right superior cerebellar peduncle, with decreased associated FLAIR hyperintensity compared to the prior. Subtle residual FLAIR hyperintensity and decreased caliber of this region, couldrepresent residual gliosis. No enhancing lesions are otherwise identified. The pituitary gland is is stable in appearance. The corpus callosum andsella appear otherwise grossly unremarkable. The posterior fossa and brainstem appear otherwise grossly unremarkable. The visualized portions of the orbits appear grossly unremarkable. Thereis mild paranasal sinus disease. Retained secretions in the left maxillary sinus. There is mild fluid signal in the mastoid air cells bilaterally, perhaps slightly decreased compared to the prior. Normal flow voids are demonstrated in the carotid arteries and basilar artery. The calvarium appears grossly stable. Cervical spine: The images are significantly degraded due to motion artifacts. Within this limitation: Relative straightening of the cervical lordosis. The alignment isotherwise maintained. Vertebral bodies are normal in height without evidence of compression fractures. Heterogenous marrow signal with associatedendplate degenerative changes, worst at C4-C5 and C5-C6, C6-C7. The bone marrow signal appear otherwise grossly unremarkable. The craniocervicaljunction appears normal. Minimal cord abutment at multiple levels. The spinalcord appears otherwise grossly unremarkable. Previously seen minimal patchy enhancement in the posterior aspects of the cervical cord at the levelof C4 and C6 is not seen on the current study. Perhaps there is a residual tiny focus of T2 hyperintensity at the previously seen C6 enhancementand T2/STIR hyperintensity also decreased compared to the prior. There is mild disc height loss at multiple levels. No high-grade central canal stenosis is seen. There are varying degrees of mild facet osteoarthritis. There are varying degrees of mild uncovertebral joint osteoarthritis with the same degree of neural foraminal stenosis atthese levels. No soft tissue abnormality is identified. Normal flow voids are identified in the vertebral arteries. Borderline developmental cervical spinal canal stenosis and superimposed multilevel degenerative disc and joint disease as follows: At C2-C3: Minimal disc bulge/disc osteophyte complex. The spinal [place] neural foramina patent. At C3-C4: Mild disc bulge. Mild hypertrophy of the ligamentum flavum.Mild spinal canal stenosis. Mild bilateral facet arthropathy. Minimal right neural foraminal narrowing. No significant neural foraminal stenosis. At C4-C5: Diffuse disc bulge. Mild hypertrophy of the ligamentum flavum. Mild spinal canal stenosis. Mild bilateral facet arthropathy and uncovertebral hypertrophy. Mild bilateral neural foraminal stenosis. At C5-C6: Diffuse disc bulge/disc osteophyte complex. Hypertrophy of the ligamentum flavum. Moderate spinal canal stenosis. Bilateral facet arthropathy and uncovertebral hypertrophy. Moderate to severe right and mild left neural foraminal stenosis. At C6-C7: Bulge/disc osteophyte complex. Hypertrophy of the ligamentum flavum. Moderate spinal canal stenosis. Bilateral facet arthropathy and uncovertebral hypertrophy. Moderate or moderate to severe bilateralneural foraminal stenosis. At C7-T1: Mild hypertrophy of the liver. The spinal canal and neural foramina are patent. Thoracic spine: The images are degraded due to motion artifacts. Within this limitation: The alignment is normal. Vertebral bodies are normal in height without evidence of compression fractures. Marrow signal intensity is normal.The spinal cord appears normal. No abnormal enhancement is identified. There is mild degenerative disc disease. No significant central canal stenosis is seen. The facets appear normal. No neural foraminal stenosisis seen. No soft tissue abnormality is identified. IMPRESSION: 1.Interval resolution of the previously seen FLAIR signal and abnormal enhancement involving the right superior cerebellar peduncle. 2.No new acute intracranial findings or abnormal intracranialenhancement are identified. 3.Interval resolution of the previously seen patchy enhancement in the cervical cord at the levels of C4 and C6. Findings are compatible with resolution of the previously seen sequela of patient's prior transverse myelitis. No evidence of disease recurrence. No active disease is identified. 4.No acute findings or abnormal enhancement in the thoracic spine. 5.Multilevel degenerative disc and joint disease as outlined above. > Interpreting Provider: Susana Graf MD on 01/18/2024 8:10 PM Genie Hoffmann MD MR ORDERABLES * MRI BRAIN WWO CONTRAST (01/17/2024 5:30 PM 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) Only the most recent of2 resultswithin the time period is included. Anatomical Region Laterality Modality Head Magnetic Resonan ce 01/17/2024 8:32 PM 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 Impressions 01/18/2024 8:10 PM 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 IMPRESSION: 1.Interval resolution of the previously seen FLAIR signal and abnormal enhancement involving the right superior cerebellar peduncle. 2.No new acute intracranial findings or abnormal intracranial enhancement are identified. 3.Interval resolution of the previously seen patchy enhancement in the cervical cord at the levels of C4 and C6. Findings are compatible with resolution of the previously seen sequela of patient's prior transverse myelitis. No evidence of disease recurrence. No active disease is identified. 4.No acute findings or abnormal enhancement in the thoracic spine. 5.Multilevel degenerative disc and joint disease as outlined above. > Interpreting Provider: Susana Graf MD on 01/18/2024 8:10 PM Narrative 01/18/2024 8:10 PM 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 PROCEDURE: ??MRI BRAIN WWO CONTRAST, MRI CERVICAL SPINE WWO CONT, MRI THORACIC SPINE WWO CONT, DATE/TIME OF EXAM: ??01/17/2024 5:33 PM, LOCATION [facility] INDICATION: G37.3: Transverse myelitis ([facility]) ADDITIONAL CLINICAL INFORMATION: Ordering Provider Reason For Exam: ??Transverse myelitis. Technologist Note: ??None Additional: ??None. CONTRAST: ??GADOBUTROL 1 MMOL/ML IV SSM SO:8 mL EXAMINATION: 1.Magnetic resonance imaging (MRI) of the brain without and with contrast 2.MRI of the cervical and thoracic spine without and with contrast TECHNIQUE: MRI of the brain, cervical, and thoracic spine was performed prior to and following the uneventful administration of 8 mL intravenous GADAVIST contrast according to standard protocol. COMPARISON: MRI of the brain, cervical, thoracic spine from 09/28/2022. FINDINGS: Brain: No evidence of acute or chronic hemorrhage is identified. No evidence of acute cerebral infarction is seen. There is mild cerebral volume loss with associated ex vacuo ventricular dilatation. No mass effect or midline shift is seen. Interval resolution of the previously seen abnormal enhancement and edema in the right superior cerebellar peduncle, with decreased associated FLAIR hyperintensity compared to the prior. Subtle residual FLAIR hyperintensity and decreased caliber of this region, could represent residual gliosis. No enhancing lesions are otherwise identified. The pituitary gland is is stable in appearance. The corpus callosum and sella appear otherwise grossly unremarkable. The posterior fossa and brainstem appear otherwise grossly unremarkable. The visualized portions of the orbits appear grossly unremarkable. There is mild paranasal sinus disease. Retained secretions in the left maxillary sinus. There is mild fluid signal in the mastoid air cells bilaterally, perhaps slightly decreased compared to the prior. Normal flow voids are demonstrated in the carotid arteries and basilar artery. The calvarium appears grossly stable. Cervical spine: The images are significantly degraded due to motion artifacts. Within this limitation: Relative straightening of the cervical lordosis. The alignment is otherwise maintained. Vertebral bodies are normal in height without evidence of compression fractures. Heterogenous marrow signal with associated endplate degenerative changes, worst at C4-C5 and C5-C6, C6-C7. The bone marrow signal appear otherwise grossly unremarkable. The craniocervical junction appears normal. Minimal cord abutment at multiple levels. The spinal cord appears otherwise grossly unremarkable. Previously seen minimal patchy enhancement in the posterior aspects of the cervical cord at the level of C4 and C6 is not seen on the current study. Perhaps there is a residual tiny focus of T2 hyperintensity at the previously seen C6 enhancement and T2/STIR hyperintensity also decreased compared to the prior. There is mild disc height loss at multiple levels. No high-grade central canal stenosis is seen. There are varying degrees of mild facet osteoarthritis. There are varying degrees of mild uncovertebral joint osteoarthritis with the same degree of neural foraminal stenosis at these levels. No soft tissue abnormality is identified. Normal flow voids are identified in the vertebral arteries. Borderline developmental cervical spinal canal stenosis and superimposed multilevel degenerative disc and joint disease as follows: At C2-C3: Minimal disc bulge/disc osteophyte complex. The spinal canal and neural foramina patent. At C3-C4: Mild disc bulge. Mild hypertrophy of the ligamentum flavum. Mild spinal canal stenosis. Mild bilateral facet arthropathy. Minimal right neural foraminal narrowing. No significant neural foraminal stenosis. At C4-C5: Diffuse disc bulge. Mild hypertrophy of the ligamentum flavum. Mild spinal canal stenosis. Mild bilateral facet arthropathy and uncovertebral hypertrophy. Mild bilateral neural foraminal stenosis. At C5-C6: Diffuse disc bulge/disc osteophyte complex. Hypertrophy of the ligamentum flavum. Moderate spinal canal stenosis. Bilateral facet arthropathy and uncovertebral hypertrophy. Moderate to severe right and mild left neural foraminal stenosis. At C6-C7: Bulge/disc osteophyte complex. Hypertrophy of the ligamentum flavum. Moderate spinal canal stenosis. Bilateral facet arthropathy and uncovertebral hypertrophy. Moderate or moderate to severe bilateral neural foraminal stenosis. At C7-T1: Mild hypertrophy of the liver. The spinal canal and neural foramina are patent. Thoracic spine: The images are degraded due to motion artifacts. Within this limitation: The alignment is normal. Vertebral bodies are normal in height without evidence of compression fractures. Marrow signal intensity is normal. The spinal cord appears normal. No abnormal enhancement is identified. There is mild degenerative disc disease. No significant central canal stenosis is seen. The facets appear normal. No neural foraminal stenosis is seen. No soft tissue abnormality is identified. Procedure Note Susana Graf MD - 01/18/2024 PROCEDURE: MRI BRAIN WWO CONTRAST, MRI CERVICAL SPINE WWO CONT, MRI THORACIC SPINE WWO CONT, DATE/TIME OF EXAM: 01/17/2024 5:33 PM, LOCATION [facility] INDICATION: G37.3: Transverse myelitis ([facility]) ADDITIONAL CLINICAL INFORMATION: Ordering Provider Reason For Exam: Transverse myelitis. Technologist Note: None Additional: None. CONTRAST: GADOBUTROL 1 MMOL/ML IV SSM SO:8 mL EXAMINATION: 1.Magnetic resonance imaging (MRI) of the brain without and withcontrast 2.MRI of the cervical and thoracic spine without and with contrast TECHNIQUE: MRI of the brain, cervical, and thoracic spine was performed prior to and following the uneventful administration of 8 mL intravenous GADAVIST contrast according to standard protocol. COMPARISON: MRI of the brain, cervical, thoracic spine from 09/28/2022. FINDINGS: Brain: No evidence of acute or chronic hemorrhage is identified. No evidence of acute cerebral infarction is seen. There is mild cerebral volume losswith associated ex vacuo ventricular dilatation. No mass effect or midlineshift is seen. Interval resolution of the previously seen abnormal enhancement and edema in the right superior cerebellar peduncle, with decreased associated FLAIR hyperintensity compared to the prior. Subtle residual FLAIR hyperintensity and decreased caliber of this region, couldrepresent residual gliosis. No enhancing lesions are otherwise identified. The pituitary gland is is stable in appearance. The corpus callosum andsella appear otherwise grossly unremarkable. The posterior fossa and brainstem appear otherwise grossly unremarkable. The visualized portions of the orbits appear grossly unremarkable. Thereis mild paranasal sinus disease. Retained secretions in the left maxillary sinus. There is mild fluid signal in the mastoid air cells bilaterally, perhaps slightly decreased compared to the prior. Normal flow voids are demonstrated in the carotid arteries and basilar artery. The calvarium appears grossly stable. Cervical spine: The images are significantly degraded due to motion artifacts. Within this limitation: Relative straightening of the cervical lordosis. The alignment isotherwise maintained. Vertebral bodies are normal in height without evidence of compression fractures. Heterogenous marrow signal with associatedendplate degenerative changes, worst at C4-C5 and C5-C6, C6-C7. The bone marrow signal appear otherwise grossly unremarkable. The craniocervicaljunction appears normal. Minimal cord abutment at multiple levels. The spinalcord appears otherwise grossly unremarkable. Previously seen minimal patchy enhancement in the posterior aspects of the cervical cord at the levelof C4 and C6 is not seen on the current study. Perhaps there is a residual tiny focus of T2 hyperintensity at the previously seen C6 enhancementand T2/STIR hyperintensity also decreased compared to the prior. There is mild disc height loss at multiple levels. No high-grade central canal stenosis is seen. There are varying degrees of mild facet osteoarthritis. There are varying degrees of mild uncovertebral joint osteoarthritis with the same degree of neural foraminal stenosis atthese levels. No soft tissue abnormality is identified. Normal flow voids are identified in the vertebral arteries. Borderline developmental cervical spinal canal stenosis and superimposed multilevel degenerative disc and joint disease as follows: At C2-C3: Minimal disc bulge/disc osteophyte complex. The spinal [place] neural foramina patent. At C3-C4: Mild disc bulge. Mild hypertrophy of the ligamentum flavum.Mild spinal canal stenosis. Mild bilateral facet arthropathy. Minimal right neural foraminal narrowing. No significant neural foraminal stenosis. At C4-C5: Diffuse disc bulge. Mild hypertrophy of the ligamentum flavum. Mild spinal canal stenosis. Mild bilateral facet arthropathy and uncovertebral hypertrophy. Mild bilateral neural foraminal stenosis. At C5-C6: Diffuse disc bulge/disc osteophyte complex. Hypertrophy of the ligamentum flavum. Moderate spinal canal stenosis. Bilateral facet arthropathy and uncovertebral hypertrophy. Moderate to severe right and mild left neural foraminal stenosis. At C6-C7: Bulge/disc osteophyte complex. Hypertrophy of the ligamentum flavum. Moderate spinal canal stenosis. Bilateral facet arthropathy and uncovertebral hypertrophy. Moderate or moderate to severe bilateralneural foraminal stenosis. At C7-T1: Mild hypertrophy of the liver. The spinal canal and neural foramina are patent. Thoracic spine: The images are degraded due to motion artifacts. Within this limitation: The alignment is normal. Vertebral bodies are normal in height without evidence of compression fractures. Marrow signal intensity is normal.The spinal cord appears normal. No abnormal enhancement is identified. There is mild degenerative disc disease. No significant central canal stenosis is seen. The facets appear normal. No neural foraminal stenosisis seen. No soft tissue abnormality is identified. IMPRESSION: 1.Interval resolution of the previously seen FLAIR signal and abnormal enhancement involving the right superior cerebellar peduncle. 2.No new acute intracranial findings or abnormal intracranialenhancement are identified. 3.Interval resolution of the previously seen patchy enhancement in the cervical cord at the levels of C4 and C6. Findings are compatible with resolution of the previously seen sequela of patient's prior transverse myelitis. No evidence of disease recurrence. No active disease is identified. 4.No acute findings or abnormal enhancement in the thoracic spine. 5.Multilevel degenerative disc and joint disease as outlined above. > Interpreting Provider: Susana Graf MD on 01/18/2024 8:10 PM Genie Hoffmann MD MR ORDERABLES * CREATININE - POCT INTERFACED (01/17/2024 2:37 PM 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) Creatinine POCT 0.68 0.30 - 1.30 mg/dL 01/17/2024 2:45 PM 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 [facility] Comment:Range ok for MRI eGFR >90 >90 mL/min/1.7 3 m2 01/17/2024 2:45 PM 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 [facility] Blood BLOOD SPECIMEN / Unknown 01/17/2024 2:37 PM 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 01/17/2024 2:45 PM 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 Genie Hoffmann MD LAB - POINT OF CARE ORDERABLES [facility] [address] [place] [address], [facility] [phone] * NMO/AQP4+MGO W INTERP+RFLX TITER ([facility]) (03/27/2023 10:53 AM CDT) Only the most recent of2 resultswithin the time period is included. See Scanned Document 04/04/2023 9:30 AM CDT [facility] REF LAB NON INTERF TRAFFIC ATTENDANT Demyelinating Eval See Scanned Report 04/04/2023 9:30 AM CDT [facility] REF LAB NON INTERF Blood BLOOD SPECIMEN / Unknown Lab Venipuncture / Unknown 03/27/2023 10:53 AM CDT 03/27/2023 12:06 PM CDT Yuri Pham MD LAB - CHEMISTRY ORDERABLES Performing Organization Address City/[facility]/ZIP Co de Phone Number [facility] REF LAB NON INTERF [address] [place] [address], [place] [phone] * ENCEPHALOPATHY AUTOIMMUNE EVAL BLOOD (MORRIS) (03/27/2023 10:53 AM CDT) Pathologist [facility] Encephalopathy Autoimmune Eval Blood See Scanned Report 04/03/2023 12:08 PM CDT [facility] REF LAB NON INTERF Blood BLOOD SPECIMEN / Unknown Lab Venipuncture / Unknown 03/27/2023 10:53 AM CDT 03/27/2023 12:06 PM CDT Yuri Pham MD LAB - CHEMISTRY ORDERABLES Performing Organization Address [facility]/ZIP Co de Phone Number [facility] REF LAB NON INTERF [address] [place] [address], [place] [phone] * SS-A (SJOGREN'S) 52+60 ANTIBODIES (03/27/2023 10:53 AM CDT) [facility] SS-A 52 Antibody 4 0 - 40 AU/mL 03/28/2023 10:11 PM CDT [facility] ([facility]) Comment: INTERPRETIVE INFORMATION: SSA-52 (Ro52) (ARNAUD) Antibody, IgG ??29 AU/mL or Less ............. Negative ??30 - 40 AU/mL ................ Equivocal ??41 AU/mL or Greater .......... Positive SSA-52 (Ro52) and/or SSA-60 (Ro60) antibodies are associated with a diagnosis of Sjogren syndrome, systemic lupus erythematosus (SLE), and systemic sclerosis. SSA-52 antibody overlaps significantly with the major SSc-related antibodies. SSA-52 (Ro52) antibody occurs frequently in patients with inflammatory myopathies, often in the presence of interstitial lung disease. SS-A 60 Antibody 6 0 - 40 AU/mL 03/28/2023 10:11 PM CDT [facility] ([facility]) Comment: REFERENCE INTERVAL: SSA-60 (Ro60) (ARNAUD) Antibody, IgG ??29 AU/mL or Less ............. Negative ??30 - 40 AU/mL ................ Equivocal ??41 AU/mL or Greater .......... Positive Performed By: [facility] [address] [place] [address] Demand Planning Manager: Karthikeyan Lazcano MD, PhD Blood BLOOD SPECIMEN / Unknown Lab Venipuncture / Unknown 03/27/2023 10:53 AM CDT 03/27/2023 11:07 AM CDT Yuri Pham MD LAB - CHEMISTRY ORDERABLES [facility]) [address] * CORNEJO/HAND BUNCH MAKER (ARNAUD) ANTIBODY IGG (03/27/2023 10:53 AM CDT) Pathologist [facility] Cornejo/HAND BUNCH MAKER (ARNAUD) Antibody IgG 3 0 - 19 Units 03/28/2023 6:58 PM CDT [facility] ([facility]) Comment: INTERPRETIVE INFORMATION: Cornejo/HAND BUNCH MAKER (ARNAUD) Antibody, IgG ??19 Units or Less ............. Negative ??20 to 39 Units ............... Weak Positive ??40 to 80 Units ............... Moderate Positive ??81 Units or greater .......... Strong Positive Cornejo/HAND BUNCH MAKER antibodies are frequently seen in patients with mixed connective tissue disease (MCTD) and are also associated with other systemic autoimmune rheumatic diseases (SARDs) such as systemic lupus erythematosus (SLE), systemic sclerosis, and myositis. Antibodies targeting the Cornejo/HAND BUNCH MAKER antigenic complex also recognize Cornejo antigens, therefore, the Cornejo antibody response must be considered when interpreting these results. Performed By: [facility] [address] [place] [address] Demand Planning Manager: Karthikeyan Lazcano MD, PhD Blood BLOOD SPECIMEN / Unknown Lab Venipuncture / Unknown 03/27/2023 10:53 AM CDT 03/27/2023 11:07 AM CDT Yuri Pham MD LAB - CHEMISTRY ORDERABLES [facility] ([facility]) [address] [place] [address], [facility] * DNA ANTIBODY DS CRITHIDIA TITER (03/27/2023 10:53 AM CDT) dsDNA Antibody IgG <1:10 <1:10 2022 10:58 PM CDT [facility] ([facility]) Comment: INTERPRETIVE INFORMATION: Double-Stranded DNA (dsDNA) Antibody, IgG by IFA (using Crithidia luciliae) Positivity for anti-double stranded DNA (anti-dsDNA) IgG antibody is a diagnostic criterion of systemic lupus erythematosus (SLE). The presence of the anti-dsDNA IgG antibody is identified by IFA titer (Crithidia luciliae indirect fluorescent test [GUY]). GUY is highly specific for SLE with a sensitivity of 50-60 percent. Some patients with early or inactive SLE may be positive for anti-dsDNA IgG by CRISTAL but negative by GUY. If the GUY result is negative but the patient has a positive CRISTAL and clinical suspicion remains, consider antinuclear antibody (JUANY) testing by IFA. Additional information and recommendations for testing may be found at [email or web address]. Performed By: [facility] [address] [place] [address] Demand Planning Manager: Karthikeyan Lazcano MD, PhD Blood BLOOD SPECIMEN / Unknown Lab Venipuncture / Unknown 03/27/2023 10:53 AM CDT 03/27/2023 11:08 AM CDT Yuri Pham MD LAB - SEROLOGY ORDERABLES Performing Organization Address [facility] Co de Phone Number [facility]) [address] [place], [place] [address] * TSH REFLEX FREE T4 (03/27/2023 10:53 AM CDT) Pathologist [facility] TSH 2.544 0.350 - 4.940 uIU/mL 03/27/2023 12:11 PM CDT [facility] Blood BLOOD SPECIMEN / Unknown Lab Venipuncture / Unknown 03/27/2023 10:53 AM CDT 03/27/2023 11:19 AM CDT Yuri Pham MD LAB - CHEMISTRY ORDERABLES Performing Organization Address City/[facility] Co de Phone Number [address] [address], [facility] [phone] * HTLV-I/II ANTIBODY W REFLEX CONFIRM (03/27/2023 10:53 AM CDT) Pathologist [facility] HTLV-1/2 Antibody Negative Negative 03/28/2023 11:45 PM CDT [facility] ([facility]) Comment: Based on the non-reactive anti-HTLV CRISTAL screen, the HTLV Western Blot is not indicated and therefore not performed. INTERPRETIVE INFORMATION: ??HTLV I/II Antibodies w/Reflex ? to Confirm This assay should not be used for blood donor screening, associated re-entry protocols, or for screening Human Cell, Tissues and Cellular and Tissue-Based Products (HCT/P). Performed by [facility], [address] [place], [place] [id number] [email or web address], Karthikeyan Lazcano MD, PHD, Lab. Director Blood BLOOD SPECIMEN / Unknown Lab Venipuncture / Unknown 03/27/2023 10:53 AM CDT 03/27/2023 11:08 AM CDT Yuri Pham MD LAB - SEROLOGY ORDERABLES [facility]) [address] [place] [address], [facility] * JUANY BLOOD SCREEN W/REFLEX TITER (03/27/2023 10:53 AM CDT) Only the most recent of3 resultswithin the time period is included. JUANY IgG None Detected None Detected 03/28/2023 9:01 PM CDT [facility] ([facility]) Comment: If suspicion of connective tissue disease is strong and JUANY EIA is negative, consider testing for JUANY by IFA ([id number]). INTERPRETIVE INFORMATION: Anti-Nuclear Antibodies (JUANY), IgG by CRISTAL Antinuclear Antibodies (JUANY), IgG by CRISTAL: JUANY specimens are screened using enzyme-linked immunosorbent assay (CRISTAL) methodology. All CRISTAL results reported as Detected are further tested by indirect fluorescent assay (IFA) using HEp-2 substrate with an IgG-specific conjugate. The JUANY CRISTAL screen is designed to detect antibodies against dsDNA, histones, SS-A (Ro), SS-B (La), Cornejo, Cornejo/HAND BUNCH MAKER, Scl-70, Lucía-1, centromeric proteins, other antigens extracted from the HEp-2 cell nucleus. JUANY CRISTAL assays have been reported to have lower sensitivities than JUANY IFA for systemic autoimmune rheumatic diseases (SARD). Negative results do not necessarily rule out SARD. Performed By: [facility] [address] [place] [address] Demand Planning Manager: Karthikeyan Lazcano MD, PhD Blood BLOOD SPECIMEN / Unknown Lab Venipuncture / Unknown 03/27/2023 10:53 AM CDT 03/27/2023 11:07 AM CDT Yuri Pham MD LAB - CHEMISTRY ORDERABLES Performing Organization Address [facility] de Phone Number [facility]) [address] * METHYLMALONIC ACID BLOOD (03/27/2023 10:53 AM CDT) Methylmalonic Acid 0.10 0.00 - 0.40 umol/L 03/30/2023 10:47 PM CDT [facility] ([facility]) Comment: INTERPRETIVE INFORMATION: MMA Serum/Plasma, ?Vitamin B12 Status This test was developed and its performance characteristics determined by [employer]. It has not been cleared or approved by the US Food and Drug Administration. This test was performed in a CLIA certified laboratory and is intended for clinical purposes. Performed By: [place] [address] Demand Planning Manager: Karthikeyan Lazcano MD, PhD Blood BLOOD SPECIMEN / Unknown Lab Venipuncture / Unknown 03/27/2023 10:53 AM CDT 03/27/2023 11:07 AM CDT Yuri Pham MD LAB - CHEMISTRY ORDERABLES Performing Organization Address [facility] Co de Phone Number [facility] ([facility]) [address] * SS-B (SJOGREN'S) ANTIBODY (03/27/2023 10:53 AM CDT) SS-B Antibody 0 0 - 40 AU/mL 03/29/2023 11:29 AM CDT [facility] ([facility]) Comment: INTERPRETIVE INFORMATION: SSB (La) (ARNAUD) Ab, IgG ??29 AU/mL or Less ............. Negative ??30 - 40 AU/mL ................ Equivocal ??41 AU/mL or Greater .......... Positive SSB (La) antibody is seen in 50-60% of Sjogren syndrome cases and is specific if it is the only ARNAUD antibody present. 15-25% of patients with systemic lupus erythematosus (SLE) and 5-10% of patients with progressive systemic sclerosis (PSS) also have this antibody. Performed By: [facility] [address] [place] [address] Demand Planning Manager: Karthikeyan Lazcano MD, PhD Blood BLOOD SPECIMEN / Unknown Lab Venipuncture / Unknown 03/27/2023 10:53 AM CDT 03/27/2023 11:07 AM CDT Yuri Pham MD LAB - CHEMISTRY ORDERABLES [facility] [employer] ([facility]) [address] [place] [address] * MPO/OR 3 AUTOANTIBODIES PANEL (03/27/2023 10:53 AM CDT) Serine Proteinase 3 IgG 0 0 - 19 AU/mL 03/29/2023 11:17 AM CDT [facility] [employer] ([facility]) Comment: INTERPRETIVE INFORMATION: Serine Proteinase 3, IgG ??19 AU/mL or Less ........ Negative ??20-25 AU/mL ............. Equivocal ??26 AU/mL or Greater ..... Positive Approximately 85% of patients with a C-ANCA pattern by IFA have antibodies specific for PR3. Performed By: [facility] [address] [place] [address] Demand Planning Manager: Karthikeyan Lazcano MD, PhD Myeloperoxidase Antibody 0 0 - 19 AU/mL 03/29/2023 11:17 AM CDT [facility] [employer] ([facility]) Comment: INTERPRETIVE INFORMATION: Myeloperoxidase Abs, IgG ??19 AU/mL or Less ......... Negative ??20-25 AU/mL .............. Equivocal ??26 AU/mL or Greater ...... Positive Approximately 90% of patients with a P-ANCA pattern by IFA have antibodies specific for MPO. Blood BLOOD SPECIMEN / Unknown Lab Venipuncture / Unknown 03/27/2023 10:53 AM CDT 03/27/2023 11:08 AM CDT Yuri Pham MD LAB - CHEMISTRY ORDERABLES [facility]) [address] [place] [address] * CYCLIC CITRULLINATED PEPTIDE(CCP) AB IGG (03/27/2023 10:53 AM CDT) Pathologist [facility] CCP Antibody IgG 1.0 <5.0 U/mL 03/27/2023 12:14 PM CDT [facility] Blood BLOOD SPECIMEN / Unknown Lab Venipuncture / Unknown 03/27/2023 10:53 AM CDT 03/27/2023 11:07 AM CDT Yuri Pham MD LAB - CHEMISTRY ORDERABLES [address] [address], [facility] [phone] * VITAMIN B12 (03/27/2023 10:53 AM CDT) [facility] Vitamin B12 513 213 - 816 pg/mL 03/27/2023 12:19 PM CDT [facility] Blood BLOOD SPECIMEN / Unknown Lab Venipuncture / Unknown 03/27/2023 10:53 AM CDT 03/27/2023 11:23 AM CDT Yuri Pham MD LAB - CHEMISTRY ORDERABLES Performing Organization Address City/[facility]/ZIP Co de Phone Number [address] [address], [facility] [phone] * (ABNORMAL) CBC W/O DIFFERENTIAL (10/01/2022 1:43 AM 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) Only the most recent of3 resultswithin the time period is included. [facility] WBC 7.2 3.5 - 10.5 10? 3 /uL 10/01/2022 1:56 AM [facility] RBC 3.76(L) 4.30 - 5.70 10? 6 /uL 10/01/2022 1:56 AM [facility] Hemoglobin 11.2(L) 12.0 - 17.6 g/dL 10/01/2022 1:56 AM [facility] Hematocrit 33.7(L) 35.2 - 51.7 % 10/01/2022 1:56 AM [facility] MCV 89.6 80.7 - 98.3 fL 10/01/2022 1:56 AM [facility] MCH 29.8 26.7 - 34.0 pg 10/01/2022 1:56 AM [facility] MCHC 33.2 30.8 - 35.9 g/dL 10/01/2022 1:56 AM [facility] RDW-SD 44.5 36.0 - 50.0 fL 10/01/2022 1:56 AM [facility] RDW-CV 13.6 11.2 - 14.8 % 10/01/2022 1:56 AM [facility] Platelet Count 189 150 - 400 10? 3 /uL 10/01/2022 1:56 AM [facility] MPV 9.1(L) 9.4 - 12.9 fL 10/01/2022 1:56 AM [facility] nRBC Absolute 0.00 0 10? 3 /uL 10/01/2022 1:56 AM [facility] nRBC Auto 0.0 0 /100 WBC 10/01/2022 1:56 AM [facility] Blood BLOOD SPECIMEN / Unknown Lab Venipuncture / Unknown 10/01/2022 1:43 AM 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 10/01/2022 1:53 AM [facility] Ram[facility] MD LAB - HEMATOLOGY ORD ERABLES [facility] [address] [place] [address], [facility] [phone] * (ABNORMAL) BASIC METABOLIC PANEL (CALCIUM TOTAL) (10/01/2022 1:43 AM 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) Only the most recent of3 resultswithin the time period is included. Pathologist [facility] BUN 20 7 - 26 mg/dL 10/01/2022 2:20 AM [facility] Creatinine 0.71 0.71 - 1.16 mg/dL 10/01/2022 2:20 AM [facility] Sodium 137 136 - 145 mmol/L 10/01/2022 2:20 AM [facility] Potassium 3.8 3.5 - 4.5 mmol/L 10/01/2022 2:20 AM [facility] Chloride 106 98 - 107 mmol/L 10/01/2022 2:20 AM [facility] CO2 23 22 - 29 mmol/L 10/01/2022 2:20 AM [facility] Glucose 107 70 - 115 mg/dL 10/01/2022 2:20 AM [facility] Calcium 8.5 8.4 - 10.2 mg/dL 10/01/2022 2:20 AM [facility] Anion Gap 12 8 - 18 10/01/2022 2:20 AM [facility] BUN/Creatinine Ratio 28(H) 7 - 23 10/01/2022 2:20 AM [facility] Osmolality Calculated 287 270 - 300 mOsm/kg 10/01/2022 2:20 AM [facility] eGFR by CKD-EPI >90 >=90 mL/min/1.7 3 m2 10/01/2022 2:20 AM [facility] Blood BLOOD SPECIMEN / Unknown Lab Venipuncture / Unknown 10/01/2022 1:43 AM 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 10/01/2022 1:53 AM [facility] Ram[facility] MD LAB - CHEMISTRY FELICIA MENDEZ [facility] Organization Address City/State/ZIP Co de Phone Number [facility] [address] [place] [address], [facility] [phone] * (ABNORMAL) OLIGOCLONAL BANDS CSF+BLOOD PANEL (09/30/2022 5:19 PM 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) [facility] Oligoclonal Bands Negative Negative 022 6:18 PM [facility]) Oligoclonial Bands Number 0 0 - 1 Bands 10/03/2022 6:18 PM [facility]) IgG 5384(H) 768 - 1632 mg/dL 10/03/2022 6:18 PM [facility]) Comment: REFERENCE INTERVAL: Immunoglobulin G Access complete set of age- and/or gender-specific reference intervals for this test in the [facility] Laboratory Test Directory ([employer]). IgG CSF 12.6(H) 0.0 - 6.0 mg/dL 10/03/2022 6:18 PM [facility]) Albumin 2991(L) 3500 - 5200 mg/dL 10/03/2022 6:18 PM [facility]) Albumin CSF 99(H) 0 - 35 mg/dL 10/03/2022 6:18 PM [facility]) Albumin Index 33.1(H) 0.0 - 9.0 ratio 10/03/2022 6:18 PM [facility]) IgG Index 0.07(L) 0.28 - 0.66 ratio 10/03/2022 6:18 PM [facility]) IgG/Albumin Ratio CSF 0.13 0.09 - 0.25 ratio 10/03/2022 6:18 PM [facility]) Synthesis Rate <0.0 <=8.0 mg/d 10/03/2022 6:18 PM [facility]) Interpretation Oligoclonial See Note 10/03/2022 6:18 PM [facility]) Comment: Isoelectric focusing/immunofixation revealed no oligoclonal bands in either the CSF or the serum. This is considered to be a negative result for oligoclonal bands. Approximately 5 percent of patients with clinically definitive multiple sclerosis will have a negative result. An elevated albumin index indicates damage to the blood-CSF barrier or contamination of CSF with blood during sample collection. An index value less than 9 is considered consistent with an intact barrier. Values of 9-14 are interpreted as slight impairment, of 14-30 as moderate impairment, and of 30-100 as severe impairment. Values exceeding 100 indicate complete breakdown of the barrier. Performed By: [place] [address] Demand Planning Manager: Karthikeyan Lazcano MD, PhD Other MISCELLANEOUS SAMPLES / Unknown Collection / Unknown 09/30/2022 5:19 PM 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 09/30/2022 5:37 PM 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 Ramon Gonzalez MD LAB - BODY FLUID ORD ERABLES Performing Organization Address [facility] de Phone Number [facility] [employer] [facility]) [address] [place] [address] * VDRL CSF W REFLEX TO TITER (09/30/2022 4:58 PM 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) VDRL CSF Non Reactive Non Reactive 10/02/2022 4:16 PM 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 [facility] ([facility]) Comment: Because the VDRL was Non Reactive, the VDRL titer was not performed. Performed by [facility], [address] [place] [address] [email or web address], Karthikeyan Lazcano MD, PHD, Lab. Director Cerebral spinal fluid CEREBROSPINAL FLUID SPECIMEN / Unknown Collection / Unknown 09/30/2022 4:58 PM 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 09/30/2022 4:58 PM 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 Ramon Gonzalez MD LAB - BODY FLUID ORD ERABLES Performing Organization Address [facility] de Phone Number [facility]) [address] [place] [address] * HERPES SIMPLEX 1+2 PCR CSF (09/30/2022 4:58 PM 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) Herpes Simplex Virus 1 PCR CSF Not detected Not detected 10/01/2022 5:43 AM 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 [facility] Herpes Simplex Virus 2 PCR CSF Not detected Not detected 10/01/2022 5:43 AM 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 [facility] Microbiology CEREBROSPINAL FLUID SPECIMEN / Unknown Collection / Unknown 09/30/2022 4:58 PM 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 09/30/2022 4:58 PM 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 Ramon Gonzalez MD LAB - MICROBIOLOGY O RDERABLES [facility] [address] [place] [address], [facility] [phone] * (ABNORMAL) PROTEIN CSF (09/30/2022 4:58 PM 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) Protein CSF 143(H) 15 - 45 mg/dL 09/30/2022 5:26 PM 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 [facility] Cerebral spinal fluid CEREBROSPINAL FLUID SPECIMEN / Unknown Collection / Unknown 09/30/2022 4:58 PM 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 09/30/2022 4:58 PM 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 Ramon Gonzalez MD LAB - BODY FLUID ORD ERABLES [address] [address], [place] [phone] * GLUCOSE CSF (09/30/2022 4:58 PM 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) Glucose CSF 64 40 - 70 mg/dL 09/30/2022 5:26 PM 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 [facility] Cerebral spinal fluid CEREBROSPINAL FLUID SPECIMEN / Unknown Collection / Unknown 09/30/2022 4:58 PM 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 09/30/2022 4:58 PM 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 Ramon Gonzalez MD LAB - BODY FLUID ORD ERABLES Performing Organization Address City/[facility]/ZIP Co de Phone Number [address] [address], [place] [phone] * HOLD SPECIMEN CSF (09/30/2022 4:57 PM 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) Specimen Hold 09/30/2022 6:10 PM 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 [facility] Comment:The Hold Sample has been received in the lab and will be held for 30 days. Cerebral spinal fluid CEREBROSPINAL FLUID SPECIMEN / Unknown Collection / Unknown 09/30/2022 4:57 PM 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 09/30/2022 4:57 PM 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 Ramon Gonzalez MD LAB - BODY FLUID ORD ERABLES [address] [address], [place] [phone] * CELL COUNT W DIFFERENTIAL CSF (09/30/2022 4:57 PM 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) Color Fluid Colorless Colorless, Straw 09/30/2022 5:17 PM [facility] Clarity Fluid Clear Clear 09/30/2022 5:17 PM [facility] Volume Fluid 1.0 mL 09/30/2022 5:17 PM [facility] WBC Calculation Fluid 1 0 - 5 x10e6/L 09/30/2022 5:17 PM [facility] RBC Calculation 1 x10e6/L 5:17 PM [facility] [employer] Fluid Negative Negative 09/30/2022 5:17 PM [facility] Cerebral spinal fluid CEREBROSPINAL FLUID SPECIMEN / Unknown Collection / Unknown 09/30/2022 4:57 PM 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 09/30/2022 4:57 PM 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 Narrative [facility] - 09/30/2022 5:17 PM 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 No reference ranges established for body fluid cell counts. The reference ranges provided are derived from published literature. The test results must be integrated into the clinical context for interpretation. Ramon Gonzalez MD LAB - BODY FLUID ORD ERABLES [address] [address], [place] [phone] * GRAM STAIN (LAB ORDERED) (09/30/2022 4:56 PM 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) Gram Stain No organisms seen 022 10:48 PM 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 [facility] Gram Stain No polymorphonuclear cells 09/30/2022 10:48 PM 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 [facility] Microbiology Collection / Unknown 09/30/2022 4:56 PM 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 09/30/2022 4:56 PM 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 Ramon Gonzalez MD LAB - MICROBIOLOGY O RDERABLES [address] [address], [place] [phone] * CULTURE CSF+GRAM STAIN (09/30/2022 4:56 PM 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) Culture No growth BENJAMIN 10/07/2022 6:07 AM 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 [facility] MICROBIOLOGY Gram Stain No organisms seen 022 6:07 AM 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 [facility]CRO[facility] Gram Stain No polymorphonuclear cells 10/07/2022 6:07 AM [facility]CRO[facility]OLOG[facility] Cerebral spinal fluid CEREBROSPINAL FLUID SPECIMEN / Unknown Collection / Unknown 09/30/2022 4:56 PM 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 09/30/2022 4:56 PM 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 Ramon Gonzalez MD LAB - MICROBIOLOGY O RDERABLES [facility] MICROBIOLOGY [address] [place] [address], [facility] [phone] * JUANY HEP-2 IGG BY IFA (09/30/2022 8:43 AM 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) JUANY HEp-2 IgG <1:80 <1:80 10/04/2022 6:44 AM 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 [facility] ([facility]) JUANY Interpretive Comment See Note 10/04/2022 6:44 AM 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 [facility] ([facility]) Comment: Antinuclear antibodies by IFA negative for homogeneous, speckled, nucleolar, centromere, and nuclear dots patterns. Cytoplasmic antibodies by IFA negative for reticular/AMA, discrete/GW body-like, polar/golgi-like, rods and rings, and cytoplasmic speckled patterns. INTERPRETIVE INFORMATION: JUANY Interpretive Comment Presence of antinuclear antibodies (JUANY) is a hallmark feature of systemic autoimmune rheumatic diseases (SARD). However, JUANY lacks diagnostic specificity and is associated with a variety of diseases (cancers, autoimmune, infectious, and inflammatory conditions) ??and may also occur in healthy individuals in varying prevalence. The lack of diagnostic specificity requires confirmation of positive JUANY by more specific serologic tests. JUANY (nuclear reactivity) positive patterns reported include centromere, homogeneous, nuclear dots, nucleolar, or speckled. JUANY (cytoplasmic reactivity) positive patterns reported include reticular/AMA, discrete/GW body-like, polar/golgi-like, cytoplasmic speckled or rods and rings. All positive patterns are reported to endpoint titers (1:2560). Reported patterns may help guide differential diagnosis, although they may not be specific for individual antibodies or diseases. Mitotic staining patterns not reported. ??Negative results do not necessarily rule out SARD. Performed By: [facility] [address] [place] [address] Demand Planning Manager: Karthikeyan Lazcano MD, PhD Blood BLOOD SPECIMEN / Unknown Lab Venipuncture / Unknown 09/30/2022 8:43 AM 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 09/30/2022 9:28 AM 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 Ramon Gonzalez MD LAB - SEROLOGY ORDER YESICA [facility] [employer] [facility]) [address] [place] [address], [facility] * ANCA VASCULITIS PANEL (09/30/2022 8:43 AM 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) Myeloperoxidase Antibody 0 0 - 19 AU/mL 10/05/2022 3:34 PM 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 [employer] ([facility]) Comment: INTERPRETIVE INFORMATION: Myeloperoxidase Abs, IgG ??19 AU/mL or Less ......... Negative ??20-25 AU/mL .............. Equivocal ??26 AU/mL or Greater ...... Positive Approximately 90% of patients with a P-ANCA pattern by IFA have antibodies specific for MPO. Serine Proteinase 3 IgG 1 0 - 19 AU/mL 10/05/2022 3:34 PM 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 [employer] ([facility]) Comment: INTERPRETIVE INFORMATION: Serine Proteinase 3, IgG ??19 AU/mL or Less ........ Negative ??20-25 AU/mL ............. Equivocal ??26 AU/mL or Greater ..... Positive Approximately 85% of patients with a C-ANCA pattern by IFA have antibodies specific for PR3. ANCA Titer IFA <1:20 <1:20 10/05/2022 3:34 PM 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 [employer] ([facility]) ANCA Pattern IFA None Detected None Detected 10/05/2022 3:34 PM 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 [facility] [employer] ([facility]) Comment: INTERPRETIVE INFORMATION: ANCA IFA Pattern Neutrophil Cytoplasmic Antibodies (C-ANCA = granular cytoplasmic staining, P-ANCA = perinuclear staining) are found in the serum of over 90 percent of patients with certain necrotizing systemic vasculitides, and usually in less than 5 percent of patients with collagen vascular disease or arthritis. Performed By: [facility] [address] [place] [address] Demand Planning Manager: Karthikeyan Lazcano MD, PhD Blood BLOOD SPECIMEN / Unknown Lab Venipuncture / Unknown 09/30/2022 8:43 AM 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 09/30/2022 9:28 AM 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 Ramon Gonzalez MD LAB - CHEMISTRY ORDE RABLES Performing Organization Address City/[facility]/ZIP Co de Phone Number [facility] ([facility]) [address] [place] [address], [facility] * (ABNORMAL) URINE MICROSCOPIC ONLY REFLEX TO CULTURE (09/29/2022 3:15 PM 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) Reflex Status Culture to follow 09/29/2022 3:50 PM 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 [facility] RBC UA 21-50(A) None Seen, 0-2, 3-5 /HPF 09/29/2022 3:50 PM 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 [facility] WBC UA >100(A) None Seen, 0-5 /HPF 09/29/2022 3:50 PM 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 [facility] WBC Clumps Few(A) None /HPF 09/29/2022 3:50 PM 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 [facility] Bacteria UA 1+(A) None /HPF 09/29/2022 3:50 PM 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 [facility] Squamous Epithelial Cells UA None Seen None Seen, 0-2, 3-5 /HPF 09/29/2022 3:50 PM 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 [facility] Mucus UA 1+ /LPF 09/29/2022 3:50 PM 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 [facility] Urine URINE SPECIMEN OBTAINED [employer]IA [employer] [facility]IN[facility] CATHETER / Unknown Collection / Unknown 09/29/2022 3:15 PM 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 09/29/2022 3:26 PM 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 Narrative [facility] - 09/29/2022 3:50 PM 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 Ramon Gonzalez MD LAB - URINALYSIS ORD ERABLES [facility] [address] [place] [address], [facility] [phone] * DRUG SCREEN EXPANDED TOXICOLOGY URINE PANEL (09/29/2022 3:15 PM 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) Drug Screen Expanded see scanned report 10/01/2022 9:12 AM 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 [facility] REF LAB NON INTERF Urine URINE / Unknown Collection / Unknown 09/29/2022 3:15 PM 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 09/29/2022 3:29 PM 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 Ramon Gonzalez MD LAB - URINE CHEMISTR Y ORDERABLES [facility] REF LAB NON INTERF [address] [place] [address], [facility] [phone] * (ABNORMAL) URINALYSIS REFLEX MICROSCOPIC REFLEX CULTURE (09/29/2022 3:15 PM 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) Color UA Yellow Straw, Yellow 09/29/2022 3:40 PM [facility] Clarity UA Cloudy(A) Clear 09/29/2022 3:40 PM [facility] Specific [place] UA 1.019 1.005 - 1.030 09/29/2022 3:40 PM [facility] pH UA 5.0 5.0 - 8.0 pH 09/29/2022 3:40 PM [facility] Protein UA 1+(A) Negative 09/29/2022 3:40 PM [facility] Glucose UA Negative Negative 09/29/2022 3:40 PM [facility] Ketone UA Negative Negative 09/29/2022 3:40 PM [facility] Bilirubin UA Negative Negative 09/29/2022 3:40 PM [facility] Blood UA 2+(A) Negative 09/29/2022 3:40 PM [facility] Nitrite UA Positive(A) Negative 09/29/2022 3:40 PM [facility] Leukocyte Esterase 3+(A) Negative 09/29/2022 3:40 PM [facility] Urobilinogen UA Negative Negative mg/dL 09/29/2022 3:40 PM [facility] Comment UA Microscopic to follow. 09/29/2022 3:40 PM 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 [facility]ORATORY [facility] Urine URINE SPECIMEN OBTAINED VIA [employer] URINARY CATHETER / Unknown Collection / Unknown 09/29/2022 3:15 PM 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 09/29/2022 3:26 PM 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 Narrative [facility] - 09/29/2022 3:40 PM 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 Ramon Gonzalez MD LAB - URINALYSIS ORD ERABLES Performing Organization Address City/[facility]/ZIP Co de Phone Number [facility] [address] [place] [address], [facility] [phone] * (ABNORMAL) CULTURE URINE (09/29/2022 3:15 PM 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) Pathologist [facility] Culture Urine >100,000 CFU/mL Pseudomonas aeruginosa(A) BENJAMIN 10/01/2022 4:58 AM 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 [facility] MICROBIOLOGY Urine URINE SPECIMEN OBTAINED [facility]IA [employer] [facility]INARY CATHETER / Unknown Collection / Unknown 09/29/2022 3:15 PM 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 09/29/2022 3:49 PM 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 Narrative Organism Antibiotic Method Susceptibility Pseudomonas aeruginosa Amikacin BENJAMIN 4 ug/mL: Susceptible Pseudomonas aeruginosa Cefepime BENJAMIN 2 ug/mL: Susceptible Pseudomonas aeruginosa Ceftazidime BENJAMIN 2 ug/mL: Susceptible Pseudomonas aeruginosa Ciprofloxacin BENJAMIN <=0.25 ug/mL: Susceptible Pseudomonas aeruginosa Gentamicin BENJAMIN 2 ug/mL: Susceptible Pseudomonas aeruginosa Meropenem BENJAMIN 0.5 ug/mL: Susceptible Pseudomonas aeruginosa Piperacillin-tazobactam BENJAMIN <=4 ug/mL: Susceptible Pseudomonas aeruginosa Tobramycin BENJAMIN <=1 ug/mL: Susceptible Ramon Gonzalez MD LAB - MICROBIOLOGY O RDERABLES [facility] MICRO[facility]OLOG[facility] [address] [place] [address], [facility] [phone] * LYME DISEASE TOTAL AB W RFLX IMMUNOASSAY (09/29/2022 11:51 AM 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) Lyme Antibody Total Negative Negative 10/01/2022 9:11 AM 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 [facility] ([facility]) Comment: Lyme antibodies not detected. Reflex testing is not indicated. No laboratory evidence of infection with B. burgdorferi (Lyme disease). Negative results may occur in patients recently infected (less than or equal to 14 days) with B. burgdorferi. ??If recent infection is suspected, repeat testing on a new sample collected in 7 to 14 days is recommended. Blood BLOOD SPECIMEN / Unknown Lab Venipuncture / Unknown 09/29/2022 11:51 AM 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 09/29/2022 12:20 PM 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 Narrative [facility] ([facility]) - 10/01/2022 9:11 AM 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 Performed at: ??01 - [facility] [address] [place], [place] ??[id number] Message Broker Developer: Paul Lovett PhD, Phone: ??[phone] Ramon Gonzalez MD LAB - CHEMISTRY ORDE ANDREA Performing Organization Address City/[facility]/ZIP Co de Phone Number [facility] ([facility]) [address] [place] [address] * SYPHILIS ANTIBODY CASCADING REFLEX (09/29/2022 11:51 AM 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) Pathologist [facility] Treponema pallidum Antibody Non-react zain Non-react zain 09/29/2022 1:40 PM 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 [facility] Comment: No Laboratory evidence of syphilis infection. ?? Note: ??Circulating antibodies may be low or undetectable in early infection. ??If recent exposure is suspected, re-draw sample in 2-4 weeks and repeat testing. Blood BLOOD SPECIMEN / Unknown Lab Venipuncture / Unknown 09/29/2022 11:51 AM 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 09/29/2022 12:20 PM 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 Ramon Gonzalez MD LAB - SEROLOGY ORDER YESICA [address] [address], [facility] [phone] * IMMUNOGLOBULINS IGG/IGM/IGA PANEL (09/29/2022 11:51 AM 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) IgG 798 767 - 1,590 mg/dL 09/29/2022 1:27 PM 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 [facility] IgM 157 37 - 286 mg/dL 09/29/2022 1:27 PM [facility] IgA 143 61 - 356 mg/dL 09/29/2022 1:27 PM [facility] Blood BLOOD SPECIMEN / Unknown Lab Venipuncture / Unknown 09/29/2022 11:51 AM 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 09/29/2022 12:20 PM 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 Ramon Gonzalez MD LAB - CHEMISTRY FELICIA MENDEZ Performing Organization Address City/[facility] Co de Phone Number [facility] [address] [place] [address], [facility] [phone] * GANGLIOSIDE (GM1,GD1B,GQ1B) ANTIBODY IGG/IGM (09/29/2022 1:33 AM CDT) GM1 Antibody IgG 3 0 - 50 IV 10/04/20 9:19 AM [facility] ([facility]) GM1 Antibody IgM 8 0 - 50 IV 10/04/20 9:19 AM [facility]) Comment: INTERPRETIVE INFORMATION: Ganglioside (GM1) Antibodies, ?IgG and IgM 29 IV or less: Negative 30-50 IV: Equivocal 51-100 IV: Positive 101 IV or greater: Strong positive Ganglioside antibodies are associated with diverse peripheral neuropathies. Elevated antibody levels to ganglioside-monosialic acid (GM1) are associated with motor or sensorimotor neuropathies, particularly multifocal motor neuropathy. Anti-GM1 may occur as IgM (polyclonal or monoclonal) or IgG antibodies. These antibodies may also be found in patients with diverse connective tissue diseases as well as normal individuals. These tests by themselves are not diagnostic and should be used in conjunction with other clinical parameters to confirm disease. This test was developed and its performance characteristics determined by [employer]. It has not been cleared or approved by the [place] Food and Drug Administration. This test was performed in a CLIA certified laboratory and is intended for clinical purposes. GD1b Antibody IgG 4 0 - 50 IV 022 9:19 AM [facility] ([facility]) GD1b Antibody IgM 5 0 - 50 IV 022 9:19 AM [facility] [employer] [facility]) GQ1b Antibody IgG 3 0 - 50 IV 022 9:19 AM 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 [facility] ([facility]) GQ1b Antibody IgM 4 0 - 50 IV 022 9:19 AM [facility] ([facility]) Comment: INTERPRETIVE INFORMATION: Ganglioside (GD1b and GQ1b) ?Antibodies, IgG and IgM 29 IV or less: Negative 30-50 IV: Equivocal 51-100 IV: Positive 101 IV or greater: Strong positive Ganglioside antibodies are associated with diverse peripheral neuropathies. GD1b antibodies are predominantly found in sensory ataxic neuropathy syndrome. GQ1b antibodies are seen in more than 80% of patients with Bess-Cam syndrome and may be elevated in Guillain-Solomon syndrome patients with ophthalmoplegia. These tests by themselves are not diagnostic and should be used in conjunction with other clinical parameters to confirm disease. This test was developed and its performance characteristics determined by [employer]. It has not been cleared or approved by the [place] Food and Drug Administration. This test was performed in a CLIA certified laboratory and is intended for clinical purposes. Performed By: [facility] [address] [place] [address] Demand Planning Manager: Karthikeyan Lazcano MD, PhD Blood BLOOD SPECIMEN / Unknown Lab Venipuncture / Unknown 09/29/2022 1:33 AM CDT 09/29/2022 1:46 AM CDT Ramon Gonzalez MD LAB - CHEMISTRY FELICIA MENDEZ Performing Organization Address City/State/[facility] Co de Phone Number [facility] [employer] [facility]) [address] [place] [address] * MRI LUMBAR SPINE WWO CONTRAST (09/29/2022 1:22 AM CDT) Anatomical Region Laterality Modality Spine Magnetic Resonan ce 09/29/2022 8:50 PM 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 Impressions 09/29/2022 8:59 PM 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 IMPRESSION: 1.Multilevel degenerative disc and joint disease as detailed level by level above. 2.Faint enhancement of the cauda equina nerve roots likely within normal limits. > Interpreting Provider: Susana Graf MD on 09/29/2022 8:59 PM Narrative 09/29/2022 8:59 PM 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 PROCEDURE: ??MRI LUMBAR SPINE WWO CONTRAST, DATE/TIME OF EXAM: ??09/29/2022 1:22 AM, LOCATION ??[facility] INDICATION: G37.3: Transverse myelitis (CMS/HCC) ADDITIONAL CLINICAL INFORMATION: Ordering Provider Reason For Exam: ??lower extremity weakness, hx of transverse myelitis Technologist Note: ??None. Additional: ??None. COMPARISON: None. TECHNIQUE: Lumbar spine MRI was performed without and with IV contrast. CONTRAST: ?? GADOBUTROL 1 MMOL/ML IV SSM SO:7 mL EXAMINATION: Magnetic resonance imaging (MRI) of the lumbar spine without and with contrast TECHNIQUE: MRI of the lumbar spine was performed prior to and following the uneventful administration of 7 mL intravenous GADAVIST contrast according to standard protocol. COMPARISON: Outside facility MRI of the lumbar spine from . FINDINGS: Straightening of the lumbar lordosis. Mild levocurvature of the lumbar spine. The alignment is otherwise maintained. Vertebral bodies are normal in height without evidence of compression fractures. Modic type II changes noted at multiple levels, worse in the L3-L4 and L4-L5 levels. Marrow signal intensity is otherwise grossly unremarkable. The conus medullaris terminates at the level of L1 and the distal spinal cord signal intensity is normal. Faint enhancement of the cauda equina nerve roots likely within normal limits. Otherwise, no abnormal enhancement is identified. There is mild disc height loss at multiple levels, worse at L3-L4 and L4-L5. Small cyst is noted in the left kidney. L1-L2: There is no disc bulge. Mild hypertrophy of the ligamentum flavum. There is no central canal stenosis. There is mild facet osteoarthritis. There is no neural foraminal stenosis. L2-L3: There is minimal disc bulge. Mild hypertrophy of the ligamentum flavum. There is no central canal stenosis. There is mild facet osteoarthritis. There is no neural foraminal stenosis. L3-L4: There is diffuse disc bulge. Mild diverticulosis of the ligamentum flavum. There is no high-grade central canal stenosis. There is mild to moderate facet osteoarthritis. There is mild bilateral neural foraminal stenosis, worse on the left side. L4-L5: There is diffuse disc bulge with eccentric right paracentral/foramina disc protrusion. Mild hypertrophy of the ligamentum flavum. Mild right lateral recess stenosis. There is mild spinal canal stenosis. There is moderate facet osteoarthritis. There is severe right and mild to moderate left neural foraminal stenosis. L5-S1: There is mild disc bulge, eccentric to the right. There is no central canal stenosis. There is mild facet osteoarthritis. There is mild to moderate neural foraminal stenosis. Procedure Note Susana Graf MD - 09/29/2022 PROCEDURE: MRI LUMBAR SPINE WWO CONTRAST, DATE/TIME OF EXAM: 09/29/2022 1:22 AM, LOCATION [facility] INDICATION: G37.3: Transverse myelitis (CMS/HCC) ADDITIONAL CLINICAL INFORMATION: Ordering Provider Reason For Exam: lower extremity weakness, hx of transverse myelitis Technologist Note: None. Additional: None. COMPARISON: None. TECHNIQUE: Lumbar spine MRI was performed without and with IV contrast. CONTRAST: GADOBUTROL 1 MMOL/ML IV SSM SO:7 mL EXAMINATION: Magnetic resonance imaging (MRI) of the lumbar spinewithout and with contrast TECHNIQUE: MRI of the lumbar spine was performed prior to and followingthe uneventful administration of 7 mL intravenous GADAVIST contrastaccording to standard protocol. COMPARISON: Outside facility MRI of the lumbar spine from . FINDINGS: Straightening of the lumbar lordosis. Mild levocurvature of the lumbar spine. The alignment is otherwise maintained. Vertebral bodies arenormal in height without evidence of compression fractures. Modic type IIchanges noted at multiple levels, worse in the L3-L4 and L4-L5 levels. Marrow signal intensity is otherwise grossly unremarkable. The conus medullaris terminates at the level of L1 and the distal spinal cord signalintensity is normal. Faint enhancement of the cauda equina nerve roots likelywithin normal limits. Otherwise, no abnormal enhancement is identified. Thereis mild disc height loss at multiple levels, worse at L3-L4 and L4-L5.Small cyst is noted in the left kidney. L1-L2: There is no disc bulge. Mild hypertrophy of the ligamentumflavum. There is no central canal stenosis. There is mild facet osteoarthritis. There is no neural foraminal stenosis. L2-L3: There is minimal disc bulge. Mild hypertrophy of the ligamentum flavum. There is no central canal stenosis. There is mild facet osteoarthritis. There is no neural foraminal stenosis. L3-L4: There is diffuse disc bulge. Mild diverticulosis of theligamentum flavum. There is no high-grade central canal stenosis. There is mild to moderate facet osteoarthritis. There is mild bilateral neural foraminal stenosis, worse on the left side. L4-L5: There is diffuse disc bulge with eccentric right paracentral/foramina disc protrusion. Mild hypertrophy of the ligamentum flavum. Mild right lateral recess stenosis. There is mild spinal canal stenosis. There is moderate facet osteoarthritis. There is severe rightand mild to moderate left neural foraminal stenosis. L5-S1: There is mild disc bulge, eccentric to the right. There is no central canal stenosis. There is mild facet osteoarthritis. There ismild to moderate neural foraminal stenosis. IMPRESSION: 1.Multilevel degenerative disc and joint disease as detailed level bylevel above. 2.Faint enhancement of the cauda equina nerve roots likely within normal limits. > Interpreting Provider: Susana Graf MD on 09/29/2022 8:59 PM Ramon Gonzalez MD MR ORDERABLES * PLATELET COUNT AUTO (09/28/2022 1:59 AM CDT) Platelet Count 249 150 - 400 10? 3 /uL 09/28/2022 2:15 AM CDT [facility] Blood BLOOD SPECIMEN / Unknown Venipuncture / Unknown 09/28/2022 1:59 AM CDT 09/28/2022 2:09 AM CDT Jessica Crawford MD LAB - HEMATOLOGY ORD ERABLES [facility] [address] [address], [facility] [phone] * (ABNORMAL) CREATININE BLOOD (09/28/2022 1:59 AM CDT) Creatinine 0.70(L) 0.71 - 1.16 mg/dL 09/28/2022 2:33 AM CDT [facility] eGFR by CKD-EPI >90 >=90 mL/min/1.7 3 m2 09/28/2022 2:33 AM CDT [facility] Blood BLOOD SPECIMEN / Unknown Venipuncture / Unknown 09/28/2022 1:59 AM CDT 09/28/2022 2:09 AM CDT Jessica Crawford MD LAB - CHEMISTRY ORDAndrzej MENDEZ Performing Organization Address City/[facility]/ZIP Co de Phone Number [facility] [address] [place] [address], [facility] [phone] * NMO/AQP4 FACS AB RFLX TITER (09/27/2022 9:20 PM CDT) See Scanned Document SEE SCANNED REPORT 10/05/2022 5:57 PM 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 [facility] REF LAB NON INTERF Blood BLOOD SPECIMEN / Unknown Venipuncture / Unknown 09/27/2022 9:20 PM CDT 09/27/2022 9:25 PM CDT Jessica Crawford MD LAB - CHEMISTRY FELICIA MENDEZ Performing Organization Address [facility]/ZIP Co de Phone Number [facility] REF LAB NON INTERF [address] [place] [address], [facility] [phone] * (ABNORMAL) CBC W AUTO DIFFERENTIAL (09/27/2022 9:20 PM CDT) WBC 19.6(H) 3.5 - 10.5 10? 3 /uL 09/27/2022 9:34 PM CDT [facility] RBC 4.49 4.30 - 5.70 10? 6 /uL 09/27/2022 9:34 PM CDT [facility] Hemoglobin 13.3 12.0 - 17.6 g/dL 09/27/2022 9:34 PM CDT [facility] Hematocrit 39.9 35.2 - 51.7 % 09/27/2022 9:34 PM CDT [facility] MCV 88.9 80.7 - 98.3 fL 09/27/2022 9:34 PM CDT [facility] MCH 29.6 26.7 - 34.0 pg 09/27/2022 9:34 PM [facility] MCHC 33.3 30.8 - 35.9 g/dL 09/27/2022 9:34 PM [facility] RDW-SD 45.1 36.0 - 50.0 fL 09/27/2022 9:34 PM [facility] RDW-CV 14.1 11.2 - 14.8 % 09/27/2022 9:34 PM [facility] Platelet Count 299 150 - 400 10? 3 /uL 09/27/2022 9:34 PM [facility] MPV 9.5 9.4 - 12.9 fL 09/27/2022 9:34 PM [facility] nRBC Absolute 0.00 0 10? 3 /uL 09/27/2022 9:34 PM [facility] nRBC Auto 0.0 0 /100 WBC 09/27/2022 9:34 PM [facility] Neutrophils % 75.5(H) 35.0 - 70.0 % 09/27/2022 9:34 PM [facility] Lymphocytes % 13.3(L) 20.0 - 43.0 % 09/27/2022 9:34 PM [facility] Monocytes % 6.9 5.0 - 13.0 % 09/27/2022 9:34 PM [facility] Eosinophils % 0.5 0.0 - 6.0 % 09/27/2022 9:34 PM [facility] Basophil % 0.4 0.0 - 2.0 % 09/27/2022 9:34 PM [facility] Neutrophils Absolute 14.79(H) 1.60 - 7.00 10? 3 /uL 09/27/2022 9:34 PM [facility] Lymphocyte Absolute 2.61 1.10 - 3.90 10? 3 /uL 09/27/2022 9:34 PM [facility] Monocytes Absolute 1.35(H) 0.26 - 1.07 10? 3 /uL 09/27/2022 9:34 PM [facility] Eosinophils Absolute 0.09 0.00 - 0.47 10? 3 /uL 09/27/2022 9:34 PM [facility] Basophils Absolute 0.07 0.00 - 0.08 10? 3 /uL 09/27/2022 9:34 PM [facility] Immature Granulocytes % 3.4(H) 0.0 - 1.0 % 09/27/2022 9:34 PM [facility] Immature Granulocytes Absolute 0.67 09/27/2022 9:34 PM [facility] Blood BLOOD SPECIMEN / Unknown Venipuncture / Unknown 09/27/2022 9:20 PM CDT 09/27/2022 9:27 PM CDT Jessica Crawford MD LAB - HEMATOLOGY ORD ERABLES [facility] [address] [place] [address], [facility] [phone] * (ABNORMAL) COMPREHENSIVE METABOLIC PANEL (09/27/2022 9:20 PM CDT) BUN 22 7 - 26 mg/dL 09/27/2022 9:55 PM [facility] Creatinine 0.74 0.71 - 1.16 mg/dL 09/27/2022 9:55 PM [facility] Sodium 135(L) 136 - 145 mmol/L 09/27/2022 9:55 PM [facility] Potassium 4.0 3.5 - 4.5 mmol/L 09/27/2022 9:55 PM [facility] Chloride 102 98 - 107 mmol/L 09/27/2022 9:55 PM [facility] CO2 25 22 - 29 mmol/L 09/27/2022 9:55 PM [facility] Glucose 110 70 - 115 mg/dL 09/27/2022 9:55 PM [facility] Calcium 9.0 8.4 - 10.2 mg/dL 09/27/2022 9:55 PM [facility] Protein Total 6.7 6.0 - 8.3 g/dL 09/27/2022 9:55 PM [facility] Albumin 3.4 3.4 - 5.0 g/dL 09/27/2022 9:55 PM CDT [facility] Bilirubin Total 0.3 0.2 - 1.2 mg/dL 09/27/2022 9:55 PM [facility] Alkaline Phosphatase 85 40 - 150 U/L 09/27/2022 9:55 PM [facility] ALT 98(H) 5 - 55 U/L 09/27/2022 9:55 PM [facility] AST 29 5 - 34 U/L 09/27/2022 9:55 PM [facility] Anion Gap 12 8 - 18 09/27/2022 9:55 PM [facility] BUN/Creatinine Ratio 30(H) 7 - 23 09/27/2022 9:55 PM [facility] Osmolality Calculated 284 270 - 300 mOsm/kg 09/27/2022 9:55 PM [facility] Albumin/Globulin Ratio 1.0(L) 1.1 - 2.3 09/27/2022 9:55 PM [facility] eGFR by CKD-EPI >90 >=90 mL/min/1.7 3 m2 09/27/2022 9:55 PM [facility] Blood BLOOD SPECIMEN / Unknown Venipuncture / Unknown 09/27/2022 9:20 PM CDT 09/27/2022 9:27 PM CDT Jessica Crawford MD LAB - CHEMISTRY ORDE [facility] Organization Address City/State/ZIP Co de Phone Number [facility] [address] [place] [address], [facility] [phone] * XR SPINE ENTIRE 2 OR 3VW (03/29/2019 2:02 PM CDT) Anatomical Region Laterality Modality Radiographic Zaynab ging 03/29/2019 6:16 PM CDT Impressions 03/29/2019 6:19 PM CDT IMPRESSION: Spondylosis, greatest in the lumbar spine. This report was electronically signed by ELEUTERIO NORRIS MD ??on 03/29/2019 6:19 PM . Narrative 03/29/2019 6:19 PM CDT Exam: ??XR SPINE ENTIRE 2 view History: ??lbp Comparison: None Findings: There is no significant scoliosis. There is relative straightening of the cervical lordosis, thoracic kyphosis, lumbar lordosis. There is moderate lumbar degenerative disc disease. There is degenerative disc disease at C5-C6. No vertebral subluxation is noted. The left iliac crest is higher than the right. Procedure Note Eleuterio Norris MD - 03/29/2019 Exam: XR SPINE ENTIRE 2 view History: lbp Comparison: None Findings: There is no significant scoliosis. There is relative straightening ofthe cervical lordosis, thoracic kyphosis, lumbar lordosis. There is moderate lumbar degenerative disc disease. There is degenerative disc disease at C5-C6. No vertebral subluxation is noted. The left iliac crest is higher than the right. IMPRESSION: Spondylosis, greatest in the lumbar spine. This report was electronically signed by ELEUTERIO NORRIS MD on03/29/2019 6:19 PM . Kerri Leija MD DIAGNOSTIC IMAGING O RDERABLES * XR LUMBAR SPINE 2 OR 3VW (01/02/2018 1:41 PM 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) Anatomical Region Laterality Modality Spine Other Impressions 01/02/2018 1:56 PM 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 Impression: Moderate degenerative change. This report was electronically signed by ELEUTERIO NORRIS MD ??on 01/02/2018 1:56 PM . Narrative 01/02/2018 1:56 PM 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 Exam: ??XR SPINE LUMBAR 2 OR 3 VW History: ??pain Comparison: None. Findings: No fracture or subluxation is present. There is moderate multilevel degenerative disc and joint disease in the mid to lower lumbar spine. Procedure Note Eleuterio Norris MD - 02/25/2018 Exam: XR SPINE LUMBAR 2 OR 3 VW History: pain Comparison: None. Findings: No fracture or subluxation is present. There is moderate multileveldegenerative disc and joint disease in the mid to lower lumbar spine. IMPRESSION Impression: Moderate degenerative change. This report was electronically signed by ELEUTERIO NORRIS MD on 01/02/20181:56 PM . 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
--- OUTSIDE RECORDS SUMMARY | 2024-12-04 20:29 | XMS_ITS | Continuity of Care Document ---
Author Organization [place] - [facility] Address [address] [place] [address] [place] [address] Assessment No assessment recorded. Plan of Treatment Reminders Order Date Submit Date Provider Last Modified By Organization Details Last Modified Time Details Appointments TeleMedic ine 30 2024 10:45A M ADAN Reveles Not available Not available Not available Lab None recorded. Referral None recorded. Procedures None recorded. Surgeries None recorded. Imaging None recorded. Medication Orders Eliquis 2.5 mg tablet [address] [id number], [address], [place], [place], [id number], 10/11/2024 14:49:22 ezetimibe 10 mg tablet [address] [facility] #[id number], [address], [place], [place], [phone], 10/11/2024 14:49:23 Patient TargetsNo targets recorded. Patient Instructions Encounter Date Encounter Id Patient Instructions Last Modified By Organization Details Last Modified Time 10/11/2024 [id number] reviewed labs , reviewed low fat diet he has cut back to 2 to 3 eggs per week , will mail labs , and a written copy of diet . [email or web address] Not available 10/11/2024 14:52:04 Reason for Referral None Reported. Results Created Date Observation Date Name Description Value Unit Range Abnormal Flag Note LastModifiedBy Organization Detail LastModifiedTime 11/27/19 25 11/27/2024 CT, angio gram, abdom en + pelvi s, w/ contr ast No observ ation record ed. [email or web address], [place], [address], 11/30/2024 17:33:10 Result Notes None recorded. Problems Name Problem SNOMED Code Status Onset Date Resolution Date Notes Provider Name and Address Organization Details Recorded Time Disorder of trunk 387921097 Active Not Available [facility] 3 16:56:21 Low back pain 550392480 Active Not Available [facility] 3 16:56:22 Degeneration of intervertebr al disc 24670319 Active 2017 Not Available [facility] 3 16:56:22 Acute transverse myelitis 92764348 Active 2022 ALISHA Finch, Identified 3 14:40:32 Chronic jxoj-LIOMF-1 9 syndrome 9393842833 Active 2022 Catia Atkins MD [address], [place], [address] , [facility] 3 14:54:48 Onychomycosi s of toenails 196105878 Active 2022 Catia Atkins MD [address], [place], [address] , [facility] 3 12:20:33 Acute viral transverse myelitis 322956807 Active 2022 Catia Atkins MD [address], [place], [address] , [facility] 3 15:22:45 Spasm 34206588 Active 2022 Catia Atkins MD [address], [place], [address] , [facility] 3 16:17:20 Screening for malignant neoplasm of prostate Active 2023 ADAN Reveles [address], [place], [address] , [facility] 4 15:41:26 Vitamin D deficiency 45499823 Active 2023 ADAN Reveles [address], [place], [address] , [facility] 4 15:42:27 Hyperlipidem ia screening Active 2023 ADAN Reveles [address], [place], [address] , [facility] 4 15:18:55 Diabetes mellitus screening Active 2023 ADAN Reveles [address], [place], [address] , [facility] 4 15:19:23 Hyperlipidem ia 03825833 Active 2023 ADAN Reveles [address], [place], [address] , [facility] 4 14:46:46 Insomnia 759791901 Active 2024 ADAN Reveles [address], [place], [address] , [facility] 5 14:37:00 Problem Notes None recorded. Procedures Surgical History Date Name Laterality Status Provider Name and Address Organization Details Recorded Time 07/22/20 Medicare Wellness CPT Code, subsequent completed Dennise Bello RN [facility] [employer] [facility] 07/22/2024 15:22:30 appendectomy completed Dennise Bello RN [facility] [employer] 07/22/2024 15:19:11 Imaging Results None recorded. Procedure Notes None recorded. Medical Equipment None Reported. Allergies No known drug allergies Medications Name Sig Start Date Stop Date Status Note LastModified by Organization Details LastModified Time celecoxib 200 mg capsule TAKE 1 CAPSULE BY MOUTH TWICE DAILY FOR 7 DAYS 03/31 completed Not Available Not Available Not Available cyclobenzap rine 10 mg tablet TAKE 1 TABLET BY MOUTH THREE TIMES DAILY NEEDED 03/31 completed Not Available Not Available Not Available atorvastati n 20 mg tablet Take 1 tablet every day by oral route. 03/31 completed Not Available Not Available Not Available ibuprofen 800 mg tablet Take 1 tablet 3 times a day by oral route as needed. active Not Available Not Available No t Available prednisone 20 mg tablet Take 2 tabs PO twice daily for 2 days; 1 tab PO twice daily for 5 days; 1/2 tab PO twice daily for 2 days; 1/2 tab PO once for 1 day. TAKE 2ND DOSE EVERYDAY AT NOON-10 DAY COURSE active Not Available Not Available No t Available tramadol 50 mg tablet TAKE 1 TO 2 TABLETS BY MOUTH EVERY 6 HOURS NEEDED 03/31 completed Not Available Not Available Not Available terbinafine HCl 250 mg tablet TAKE 1 TABLET BY MOUTH EVERY DAY FOR 1 WEEK OF EACH MONTH FOR 4 MONTHS 04/15 completed Not Available Not Available Not Available baclofen 10 mg tablet TAKE 1 TABLET BY MOUTH AT BEDTIME. MAY CAUSE DROWSINES S active Not Available Not Available No t Available zolpidem 10 mg tablet Take 1 tablet every day by oral route. 03/31 completed Not Available Not Available Not Available ezetimibe 10 mg tablet Take 1 tablet every day by oral route at noon for 90 days. active Not Available Not Available No t Available Vitamin D3 active Not Available Not Av ailable Not Available Vitamin B12 active Not Available Not A vailable Not Available Eliquis 2.5 mg tablet TAKE 1 TABLET BY MOUTH TWICE DAILY active Not Available Not Available No t Available Vitals None Recorded Social History Question Answer Notes LastModified by Organizat ion Details LastModified Time Tobacco Smoking Status Former Smoker Dennise Bello RN null, [place] [employer] [facility] 07/22/2024 15:18:53 What Was The Date Of Your Most Recent Tobacco Screening? 07/22/2024 [email or web address] Information not available 07/22/2024 Sex: Unknown Functional Status None recorded. Mental Status None recorded. Family History Nothing Reported. Medical History No medical history recorded. Past Encounters Encounter ID Performer Location Encounter Start Date Encounter Closed Date Diagnosis/Indication Diagnosis SNOMED-CT Code Diagnosis ICD10 Code Diagnosis Note [id number] ADAN Reveles [facility] Darlin trevino [address] [place] [address] 10/11/2024 14:23:38 10/11/2024 14:55:12 History of deep vein thrombosis 998636368 Z86.718 Vitamin D deficiency 347 31770 E55.9 Degenerati on of intervertebral disc 75715507 M51.9 Low back pain 684186909 M54.50 Hyperlipidemia 53686217 E78.5 Health Concerns Section Related Observation LastModified by Organization Detai ls LastModified Time None Recorded Concern Status LastModified by Organization Details LastModified Time None Recorded Payers Encounter Date Sequence Insurance Name Policy Number Policy Coello Covered Member ID Coello Member ID Guarantor Name 10/11/2024 1 [facility] (MEDICARE REPLACEMENT/A DVANTAGE - PPO) [id number] Binu Justin [id number] Binu Justin Notes Date Note Type Note Provider Name and Address Organization Details Recorded Time 10/11/2024 text/html no changes, doing well ADAN Reveles [address] [facility], [facility] [address], [place], [address], [place] [facility] [employer] 10/29/2024 18:01:27
--- OUTSIDE RECORDS SUMMARY | 2024-12-04 20:29 | XMS_ITS | Data Portability ---
Author Organization [facility] [employer], Main Office Address [address] [place] [address] Assessment Encounter Date Assessment Date Assessment LastModified by Organization Details LastModified Time 01/19/2024 01/19/2024 The patient gave verbal consent using TeleHealth services and the consent is documented in the medical record prior to using the service. The patient has been informed of what a TeleMedicine visit is. Patient is located at home. Provider is located at office. Names and roles of persons in addition to the patient and provider participating in telemedicine services include . The patient had a 10 minute TeleMedicine consultation via Momo to discuss the following: [email or web address] Not available 01/19/2024 10:47:47 Plan of Treatment Reminders Order Date Submit Date Provider Last Modified By Organization Details Last Modified Time Details Appointments TeleMedic ine 30 2024 10:45A ADAN Barajas Not available Not available Not available Lab PSA, serum or plasma 2023 [facility] (Lab), [address] [place], [address], 07/22/2024 20:21:46 vitamin D, 25-hydrox y, total, serum 2023 [facility] (Lab), [address] [place], [address], 07/22/2024 20:21:46 Referral None recorded. Procedures None recorded. Surgeries None recorded. Imaging None recorded. Medication Orders Eliquis 2.5 mg tablet 2023 024 [facility]72974, [address] [place], [place], [id number], 01/19/2024 10:42:04 Eliquis 2.5 mg tablet 2023 [facility] #02469, [address], [place], [place], [id number], 04/15/2024 15:37:35 Eliquis 2.5 mg tablet 2023 024 [facility] #48104, [address], [place], [place], [id number], 07/22/2024 15:25:56 prednison e 20 mg tablet 2023 [facility] #35465, [address], [place], [place], [id number], 07/22/2024 15:38:45 Eliquis 2.5 mg tablet 2023 [facility] #07214, [address], [place], [place], [id number], 10/11/2024 14:49:22 ezetimibe 10 mg tablet 2023 [facility] #34954, [address], [place], [place], [id number], 10/11/2024 14:49:23 Patient TargetsNo targets recorded. Patient Instructions Encounter Date Encounter Id Patient Instructions Last Modified By Organization Details Last Modified Time 01/19/2024 [id number] Due to the COVID -19 (Novel Coronavirus) pandemic, it is within this context (and with the understanding that this method of patient encounter is in the patient? s best interest as well as the health and safety of other patients and the public) that ? telehealth? is being provided for this patient encounter rather than a pyvm-[id number] visit. This patient encounter is appropriate at this time. This patient has been advised of the potential risks and limitations of this mode of treatment (including, but not limited to, the absence of in-person examination) and has agreed to be treated in a remote fashion despite these risks. Any and all of the patient? s/patient? s family? s questions on this issue have been answered, and I have made no promises or guarantees to the patient. The patient has also been advised to contact this office for worsening conditions or problems, and seek emergency medical treatment and/or call 911 if the patient deems either necessary. HPI and/or vitals, if listed, were provided by the patient. [email or web address] Not available 01/19/2024 10:40:00 07/22/2024 [id number] dementia rating scale-2* [email or web address] Not available 07/22/2024 15:25:46 depression screening* [email or web address] Not available 07/22/2024 15:25:46 alcohol misuse* Not availab le 07/22/2024 15:25:45 multi-dimensiona l health assessment questionnaire* [email or web address] Not available 07/22/2024 15:25:46 Personalized a [facility] Plan and Screening Recommendations Advance Directives - Do you have one? Advance Directives - Do we have your advance directive on file in your health record? Primary Prevention/Interven tion (prevents or decreases the chance of common diseases from occurring) Smoking Risk: Non Smoker Alcohol Misuse Screening: Negative Weight: Appropriate Overwei ght continue your current weight loss efforts try to lose 5% of your body weight Physical activity: minimum of 10-20 minutes of activity that causes mild breathlessness/day minimum of 20-30 minutes activity that causes mild breathlessness/day Nutrition: Good Average Fall Risk (screened today): Low Intermediate Refer to attached handout Preventing Falls: After your Visit Recommend regular use of cane or walker Vaccines Pneumococcal: Ordered Recommended today Recommended today, but you have declined Influenza: Ordered Recommended today Recommended today, but you have declined Chronic Disease Risks Stroke: Low Risk I have no recommendations Heart Attack: Low risk I have no recommendations Clogging of the Arteries: Low risk I have no recommendations Diabetes: Low Risk I have no recommendations Secondary Prevention/Interven tion (detects treatable diseases before they may cause symptoms, disability, or ) Prostate Cancer Screening: Colon Cancer Screening: Colonoscopy In: Ordered Recomme nded Recommended today, but you have declined Eye Disease Screening: Ordered Recommended today Dementia Risk: Low I have no recommendations Depression Screening: Negative Not available 07/22/2024 15:27:16 10/11/2024 [id number] reviewed labs , reviewed low fat diet he has cut back to 2 to 3 eggs per week , will mail labs , and a written copy of diet . [email or web address] Not available 10/11/2024 14:52:04 Reason for Referral None Reported. Results Created Date Observation Date Name Description Value Unit Range Abnormal Flag Note LastModifiedBy Organization Detail LastModifiedTime 10/07/20 24 10/08/2024 LIPID PANEL , [place] cholesterol, total 203 mg/dL <200 high Not Available [address], [address], 10/08/2024 06:44:31 10/07/20 24 10/08/2024 LIPID PANEL , [place] HDL cholesterol 44 mg/dL > or = 40 normal Not Available [address], [address], 10/08/2024 06:44:31 10/07/20 24 10/08/2024 LIPID PANEL , [place] triglyceride s 118 mg/dL <150 normal Not Available [address], [address], 10/08/2024 06:44:31 10/07/2010/08/2024 LIPID PANEL , [place] LDL-choleste rol 136 mg/dL _(holley c) high Refer ence range : <100 Johanne able range <100 mg/dL for prima ry preve ntion ; <70 mg/dL for patie nts with CHD or diabe tic patie nts with > or = 2 CHD risk facto rs. LDL-C is now calcu lated using the Abby n-Hop kins calcu carlos n, which is a valid ated novel peaceo diane feliz accur acy than the Fried collette equat ion in the estim ation of LDL-C . Abby morris SS et al. RAFAEL. 2013; 310(1 6): 2061- 2068 (http ://ed ati on.Qu Edwin bey [employer]. com/f aq/FA Q164) Not Available [address] [address] [address] , [place], [address], 10/08/2024 06:44:31 10/07/20 24 10/08/2024 LIPID PANEL , [place] chol/HDLC ratio 4.6 (calc ) <5.0 normal Not Available [address] [address] , [place], [address], 10/08/2024 06:44:31 10/07/20 24 10/08/2024 LIPID PANEL , [place] non HDL cholesterol 159 mg/dL _(holley c) <130 high For patie nts with diabe estephanie plus 1 major ASCVD risk facto r, treat ing to a non-H DL-C goal of <100 mg/dL (LDL- C of <70 mg/dL ) is consi dered a thera peuti c optio n. Not Available [address] [address] , [place], [address], 10/08/2024 06:44:31 10/07/20 24 10/08/2024 HEPAT ITIS PANEL , ACUTE W/REF ODALIS TO CONFI RMATI ON hepatitis A IgM NON-RE ACTIVE non-re active normal For addit ional infor elier calvert e refer to http: //[facility] roseanne singh gnost ics.c om/fa q/FAQ (This link is being provi ded for infor cathleen nal/ educa rah l purpo ses only. ) Not Available [address] [address] [place], [address], 10/08/2024 06:44:32 10/07/20 24 10/08/2024 HEPAT ITIS PANEL , ACUTE W/REF ODALIS TO CONFI RMATI ON hepatitis B surface antigen NON-RE ACTIVE non-re active normal For addit ional infor elier calvert e refer to http: //[facility] morris.que stdia gnost ics.c om/fa q/FAQ 202 (This link is being provi ded for infor matio nal/ educa rah l purpo ses only. ) Not Available [address] [address] [place], [address], 10/08/2024 06:44:32 10/07/20 24 10/08/2024 HEPAT ITIS PANEL , ACUTE W/REF ODALIS TO CONFI RMATI ON hepatitis B core antibody (IgM) NON-RE ACTIVE non-re active normal For addit ional infor cathleen morris, elier e refer to http: //[facility] catio n.que stdia gnost ics.c om/fa q/FAQ 202 (This link is being provi ded for infor matio nal/ educa rah l purpo ses only. ) Not Available [facility] [address] [address] [place], [address], 10/08/2024 06:44:32 10/07/20 24 10/08/2024 HEPAT ITIS PANEL , ACUTE W/REF ODALIS TO CONFI RMATI ON hepatitis C antibody NON-RE ACTIVE non-re active normal HCV antib shyam was non-r eacti ve. There is no labor atory evide nce of HCV infec tion. In most cases , no furth er actio n is requi red. Howev er, if recen t HCV expos ure is suspe cted, a test for HCV RNA (test code 96267 ) is sugnathaniel peresd. For addit ional infor cathleen thapa e refer to http: //[facility] catio n.que stdia gnost ics.c om/fa q/FAQ 22v1 (This link is being provi ded for infor matio nal/ educa rah l purpo ses only. ) Not Available [address] [address] [place], [address], 10/08/2024 06:44:32 10/07/20 24 10/08/2024 COMPR EHENS MADISON METAB OLIC PANEL glucose 105 mg/dL 65-99 high Fasti ng refer ence inter cleopatra For someo ne witho ut known diabe estephanie, a gluco se value betwe en 100 and 125 mg/dL is consi stent with predi abete s and shoul d be confi rmed with a follo w-up test. Not Available [facility] [address] [address] [place], [address], 10/08/2024 06:44:33 10/07/20 24 10/08/2024 COMPR EHENS MADISON METAB OLIC PANEL urea nitrogen (BUN) 16 mg/dL 7-25 normal Not Available [facility] [address] [address] [place], [address], 10/08/2024 06:44:33 10/07/20 24 10/08/2024 COMPR EHENS MADISON METAB OLIC PANEL creatinine 0.82 mg/dL 0.70-1 .35 normal Not Available [facility] [address] [address] [place], [address], 10/08/2024 06:44:33 10/07/20 24 10/08/2024 COMPR EHENS MADISON METAB OLIC PANEL eGFR 99 mL/mi n/1.7 3m2 > or = 60 normal Not Available [address] [address] [place], [address], 10/08/2024 06:44:33 10/07/20 24 10/08/2024 COMPR EHENS MADISON METAB OLIC PANEL BUN/creatini ne ratio SEE NOTE: (calc ) 6-22 Not Repor alonzo: BUN and Creat inine are withi n refer ence range . Not Available [facility] [address] [address] [place], [address], 10/08/2024 06:44:33 10/07/20 24 10/08/2024 COMPR EHENS MADISON METAB OLIC PANEL sodium 137 mmol/ L 135-14 6 normal Not Available [facility] [address] [address] [place], [address], 10/08/2024 06:44:33 10/07/20 24 10/08/2024 COMPR EHENS MADISON METAB OLIC PANEL potassium 3.9 mmol/ L 3.5-5. 3 normal Not Available [address], [address], 10/08/2024 06:44:33 10/07/20 24 10/08/2024 COMPR EHENS MADISON METAB OLIC PANEL chloride 101 mmol/ L 98-110 normal Not Available [address], [address], 10/08/2024 06:44:33 10/07/20 24 10/08/2024 COMPR EHENS MAD[place] METAB OLIC PANEL carbon dioxide 29 mmol/ L 20-32 normal Not Available [address], [address], 10/08/2024 06:44:33 10/07/20 24 10/08/2024 COMPR EHENS MAD[place] METAB OLIC PANEL calcium 9.4 mg/dL 8.6-10 .3 normal Not Available [address], [address], 10/08/2024 06:44:33 10/07/20 24 10/08/2024 COMPR EHENS MADISON METAB OLIC PANEL protein, total 6.9 g/dL 6.1-8. 1 normal Not Available [address], [address], 10/08/2024 06:44:33 10/07/20 24 10/08/2024 COMPR EHENS MADISON METAB OLIC PANEL albumin 4.4 g/dL 3.6-5. 1 normal Not Available [address], [address], 10/08/2024 06:44:33 10/07/20 24 10/08/2024 COMPR EHENS MADISON METAB OLIC PANEL globulin 2.5 g/dL_ (calc ) 1.9-3. 7 normal Not Available [address], [address], 10/08/2024 06:44:33 10/07/20 24 10/08/2024 COMPR EHENS MADISON METAB OLIC PANEL albumin/glob ulin ratio 1.8 (calc ) 1.0-2. 5 normal Not Available [address], [address], 10/08/2024 06:44:33 10/07/20 24 10/08/2024 COMPR EHENS MADISON METAB OLIC PANEL bilirubin, total 0.5 mg/dL 0.2-1. 2 normal Not Available [address], [address], 10/08/2024 06:44:33 10/07/20 24 10/08/2024 COMPR EHENS MADISON METAB OLIC PANEL alkaline phosphatase 104 U/L 35-144 normal Not Available [address], [address], 10/08/2024 06:44:33 10/07/20 24 10/08/2024 COMPR EHENS MAD[place] METAB OLIC PANEL AST 12 U/L 10-35 normal Not Available [address], [address], 10/08/2024 06:44:33 10/07/20 24 10/08/2024 COMPR EHENS MADISON METAB OLIC PANEL ALT 13 U/L 9-46 normal Not Available [address], [address], 10/08/2024 06:44:33 10/07/20 24 10/08/2024 CREAT INE KINAS E, TOTAL creatine kinase, total 94 U/L 44-196 normal Not Available [address], [address], 10/08/2024 06:44:34 10/07/20 24 10/08/2024 CBC (INCL UDES DIFF/ PLT) white blood cell count 7.3 thous and/u L 3.8-10 .8 normal Not Available [address], [address], 10/08/2024 06:44:35 10/07/20 24 10/08/2024 CBC (INCL UDES DIFF/ PLT) red blood cell count 4.64 monika on/uL 4.20-5 .80 normal Not Available [address], [address], 10/08/2024 06:44:35 10/07/20 24 10/08/2024 CBC (INCL UDES DIFF/ PLT) hemoglobin 13.6 g/dL 13.2-1 7.1 normal Not Available [address], [address], 10/08/2024 06:44:35 10/07/20 24 10/08/2024 CBC (INCL UDES DIFF/ PLT) hematocrit 41.8 % 38.5-5 0.0 normal Not Available [address], [address], 10/08/2024 06:44:35 10/07/20 24 10/08/2024 CBC (INCL UDES DIFF/ PLT) MCV 90.1 fL 80.0-1 00.0 normal Not Available [address], [address], 10/08/2024 06:44:35 10/07/20 24 10/08/2024 CBC (INCL UDES DIFF/ PLT) MCH 29.3 pg 27.0-3 3.0 normal Not Available [address], [address], 10/08/2024 06:44:35 10/07/20 24 10/08/2024 CBC (INCL UDES DIFF/ PLT) MCHC 32.5 g/dL 32.0-3 6.0 normal For adult s, a sligh t decre ase in the calcu lated MCHC value (in the range of 30 to 32 g/dL) is most likel y not clini tanya cruzi virgilio t; aleida er, it shoul d be inter prete d with cauti on in [facility] n with other red cell jose eters and the patie nt's clini holley condi tion. Not Available [facility] [address], [address], 10/08/2024 06:44:35 10/07/20 24 10/08/2024 CBC (INCL UDES DIFF/ PLT) RDW 14.6 % 11.0-1 5.0 normal Not Available [facility] [address], [address], 10/08/2024 06:44:35 10/07/20 24 10/08/2024 CBC (INCL UDES DIFF/ PLT) platelet count 226 thous and/u L 140-40 0 normal Not Available [facility] [address], [address], 10/08/2024 06:44:35 10/07/20 24 10/08/2024 CBC (INCL UDES DIFF/ PLT) MPV 10.7 fL 7.5-12 .5 normal Not Available [facility] [address], [address], 10/08/2024 06:44:35 10/07/20 24 10/08/2024 CBC (INCL UDES DIFF/ PLT) absolute neutrophils 4876 cells /uL 1500-7 800 normal Not Available [facility] [address], [address], 10/08/2024 06:44:35 10/07/20 24 10/08/2024 CBC (INCL UDES DIFF/ PLT) absolute lymphocytes 1628 cells /uL 850-39 00 normal Not Available [facility] [address], [address], 10/08/2024 06:44:35 10/07/20 24 10/08/2024 CBC (INCL UDES DIFF/ PLT) absolute monocytes 635 cells /uL 200-95 0 normal Not Available [address], [address], 10/08/2024 06:44:35 10/07/20 24 10/08/2024 CBC (INCL UDES DIFF/ PLT) absolute eosinophils 153 cells /uL 15-500 normal Not Available [address], [address], 10/08/2024 06:44:35 10/07/2010/08/2024 CBC (INCL UDES DIFF/ PLT) absolute basophils 7 cells /uL 0-200 normal Not Available [address], [address], 10/08/2024 06:44:35 10/07/20 24 10/08/2024 CBC (INCL UDES DIFF/ PLT) neutrophils 66.8 % normal Not Available [address], [address], 10/08/2024 06:44:35 10/07/20 24 10/08/2024 CBC (INCL UDES DIFF/ PLT) lymphocytes 22.3 % normal Not Available [address], [address], 10/08/2024 06:44:35 10/07/20 24 10/08/2024 CBC (INCL UDES DIFF/ PLT) monocytes 8.7 % normal Not Available [address], [address], 10/08/2024 06:44:35 10/07/20 24 10/08/2024 CBC (INCL UDES DIFF/ PLT) eosinophils 2.1 % normal Not Available [address], [address], 10/08/2024 06:44:35 10/07/20 24 10/08/2024 CBC (INCL UDES DIFF/ PLT) basophils 0.1 % normal Not Available [facility] [address] [place], [address], 10/08/2024 06:44:35 10/07/20 24 10/08/2024 TSH W/REF ODALIS TO FT4 TSH w/reflex to FT4 2.10 mIU/L 0.40-4 .50 normal Not Available [facility] [address] [address] , [place], [address], 10/08/2024 06:44:36 10/07/20 24 10/08/2024 HEMOG LOBIN A1C hemoglobin A1C 5.5 %_of_ total _HGB <5.7 normal For the purpo se of scresloan bill for the prese nce of diabe estephanie: <5.7% Consi stent with the absen ce of diabe estephanie 5.7-6 .4% Consi stent with incre ased risk for diabe estephanie (pred iabet es) > or =6.5% Consi stent with diabe estephanie This assay resul t is consi stent with a decre ased risk of diabe estephanie. Curre ntly, no conse nsus exist s irwin caal use of hemog lobin A1c for diagn osis of diabe estephanie in child mariola. Accor ding to Ameri can Diabe estephanie Assoc iatio n (ADA) guide lines , hemog lobin A1c <7.0% repre sents optim al contr ol in non-p regna nt diabe tic patie nts. Diffe rent metri cs may apply to speci fic patie nt popul ation s. Stand ards of Medic al Care in Diabe estephanie(A DA). Not Available [facility] [address] [place], [address], 10/08/2024 06:44:37 11/27/19 25 11/27/2024 CT, angio gram, abdom en + pelvi s, w/ contr ast No observ ation record ed. [address], [place], [address], 11/30/2024 17:33:10 Result Notes None recorded. Problems Name Problem SNOMED Code Status Onset Date Resolution Date Notes Provider Name and Address Organization Details Recorded Time Disorder of trunk 879849016 Active Not Available [facility] 3 16:56:21 Low back pain 220636899 Active Not Available [facility] 3 16:56:22 Degeneration of intervertebr al disc 84054878 Active 2017 Not Available [facility] 3 16:56:22 Acute transverse myelitis 62503621 Active 2022 ALISHA Finch, [employer] [facility] [employer] 3 14:40:32 Chronic fftw-SHPCQ-7 9 syndrome 2519199468 Active 2022 Catia Atkins MD [address], [place], [address] , [employer] 3 14:54:48 Onychomycosi s of toenails 751509514 Active 2022 Catia Atkins MD [address], [place], [address] , [employer] 3 12:20:33 Acute viral transverse myelitis 693626412 Active 2022 Catia Atkins MD [address], [place], [address] , [employer] 3 15:22:45 Spasm 58876474 Active 2022 Catia Atkins MD [address] [place], [address] , [employer] 3 16:17:20 Screening for malignant neoplasm of prostate Active 2023 ADAN Reveles [address], [place], [address] , [employer] 4 15:41:26 Vitamin D deficiency 99921308 Active 2023 ADAN Reveles [address], [place], [address] , [facility] [employer] [facility] [employer] 4 15:42:27 Hyperlipidem ia screening Active 2023 ADAN Reveles [address], [place], [address] , [employer] [facility] [employer] [facility] 4 15:18:55 Diabetes mellitus screening Active 2023 ADAN Reveles [address], [place], [address] , [employer] [facility] [employer] 4 15:19:23 Hyperlipidem ia 25618637 Active 2023 ADAN Reveles [address], [place], [address] , [employer] [facility] [employer] 4 14:46:46 Insomnia 107686844 Active 2024 ADAN Reveles [address], [place], [address] , [employer] [facility] [employer] 5 14:37:00 Problem Notes None recorded. Procedures Surgical History Date Name Laterality Status Provider Name and Address Organization Details Recorded Time 07/22/20 Medicare Wellness CPT Code, subsequent completed Dennise Bello RN [facility] [employer] [facility] 07/22/2024 15:22:30 appendectomy completed Dennise Bello RN [facility] [employer] [facility] 07/22/2024 15:19:11 Imaging Results Imaging Date Name Status LastModified by Organiz ation Details LastModified Time 11/27/2024 CT, angiogram, abdomen + pelvis, w/ contrast completed [place] [id number] [facility] [address], [place], [address], 11/30/2024 17:33:10 Procedure Notes None recorded. Medical Equipment None [...] Available Not Available No t Available Vitals Date Recorded Body height Body mass index (BMI) Body weight Body temperature Heart rate Oxygen saturation Oxygen saturation in Arterial blood by Pulse oximetry Systolic blood pressure Diastolic blood pressure Provider Name and Address Organization Details Last Updated DateTime 3 177.8 cm 27.1 kg/m2 00618.9 6 g 97.4 [degF] 80 /min 98 % 98 % 112 mm[Hg] 68 mm[Hg] Junie Crabtree MA [place] [employer] 3 16:06:05 Date Recorded Body height Body mass index (BMI) Body weight Body temperature Heart rate Oxygen saturation Oxygen saturation in Arterial blood by Pulse oximetry Respiratory rate Systolic blood pressure Diastolic blood pressure Provider Name and Address Organization Details Last Updated DateTime 4 177.8 cm 26.1 kg/m2 94288.8 1 g 97.7 [degF] 86 /min 96 % 96 % 16 /min 104 mm[Hg] 72 mm[Hg] Dennise Bello RN [facility] [employer] [facility] 4 15:23:07 Date Recorded Body height Body mass index (BMI) Body weight Body temperature Heart rate Oxygen saturation Oxygen saturation in Arterial blood by Pulse oximetry Respiratory rate Systolic blood pressure Diastolic blood pressure Provider Name and Address Organization Details Last Updated DateTime 4 177.8 cm 26.3 kg/m2 76524.4 g 98.3 [degF] 75 /min 96 % 96 % 16 /min 100 mm[Hg] 68 mm[Hg] Dennise Bello RN [facility] [employer] [facility] 15:18:28 Social History Question Answer Notes LastModified by Organizat ion Details LastModified Time Tobacco Smoking Status Former Smoker Dennise Bello RN [facility] [employer] [facility] 07/22/2024 15:18:53 What Was The Date Of Your Most Recent Tobacco Screening? 07/22/2024 Information not available 07/22/2024 Sex: Unknown Functional Status None recorded. Mental Status None recorded. Family History Nothing Reported. Medical History No medical history recorded. 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 Doing better. [id number] Catia Atkins MD [facility] [place] [address] [facility] [place] [address] 07/01/2023 15:04:12 07/01/2023 15:28:02 Acute viral transverse myelitis 476524795 G37.3 D/t COVID Continue eliquis. Continue PT. F/u in 3 months [id number] Catia Atkins MD [facility] [place] [address] [facility] [place] [address] 10/01/2023 15:54:01 10/01/2023 16:23:58 Acute viral transverse myelitis 050303087 G37.3 D/t COVID. Continue eliquis. Continue PT. F/u in 3 months. Spasm 75408502 R25.2 Continue baclofen. May double up as needed. [id number] ADAN Reveles [facility] [place] [address] [facility] [place] [address] 01/19/2024 10:18:51 01/19/2024 10:49:43 Degeneration of intervertebral disc 54249595 M51.9 History of deep vein thrombosis 224873943 Z86.524 [id number] ADAN Reveles [facility] [place] [address] [facility] [place] [address] 04/15/2024 15:00:19 04/15/2024 15:41:54 History of deep vein thrombosis [id number] Z86.718 Degenerati on of intervertebral disc 00438494 M51.9 Low back pain 242684139 M54.50 Onychomyco sis of toenails 253198023 B35.1 [id number] ADAN Reveles [facility] [address] [address] [place] [address] 07/22/2024 14:57:26 07/22/2024 15:53:29 Adult health examination [id number] Z00.00 Screening for disorder 432729839 Z13.9 History of deep vein thrombosis 626161058 Z86.718 Degenerati on of intervertebral disc 16952886 M51.9 Acute vangie l transverse myelitis 452313229 G37.3 Spasm 71014261 R25.2 Screening for malignant neoplasm of prostate 573783092 Z12.5 Vitamin D deficiency 347 33997 E55.9 [id number] ADAN Reveles [facility] Darlin pedraza [address] [facility] [place] [address] 10/11/2024 14:23:38 10/11/2024 14:55:12 History of deep vein thrombosis [id number] Z86.718 Vitamin D deficiency 347 79045 E55.9 Degenerati on of intervertebral disc 29233195 M51.9 Low back pain 104239255 M54.50 Hyperlipidemia 42633730 E78.5 Health Concerns Section Related Observation LastModified by Organization Detai ls LastModified Time None Recorded Concern Status LastModified by Organization Details LastModified Time None Recorded Advance Directives Directive None Recorded Payers Encounter Date Sequence Insurance Name Policy Number Policy Coello Covered Member ID Coello Member ID Guarantor Name 10/01/2023 1 [facility] (MEDICARE REPLACEMENT/A DVANTAGE - PPO) [id number] Binu D Sutter [id number] Binu Sutter 01/19/2024 1 [facility] (MEDICARE REPLACEMENT/A DVANTAGE - PPO) [id number] Binu D Sutter [id number] Binu Sutter 04/15/2024 1 [facility] (MEDICARE REPLACEMENT/A DVANTAGE - PPO) [id number] Binu D Sutter [id number] Binu Sutter 07/22/2024 1 [facility] (MEDICARE REPLACEMENT/A DVANTAGE - PPO) [id number] Binu D Sutter [id number] Binu Sutter 10/11/2024 1 [facility] (MEDICARE REPLACEMENT/A DVANTAGE - PPO) [id number] Binu D Sutter [id number] Binu Sutter Notes Date Note Type Note Provider Name and Address Organization Details Recorded Time 10/01/2023 text/html Here today for f /u of transverse myelitis. Still gets muscle spasm. He is now walking with a walker. His left shoulder is hurting. Gets cramping in legs. Taking Mg too. Pt had COVID and developed transverse myelitis. He is slowly recovering and is able to walk now with assistance. Catia Atkins MD [address], [place], [address], [facility] [employer] [facility] 10/02/2023 06:06:32 01/19/2024 text/html takes miralax twice daily . muscles tighten up lower extremity, is on magnesium.BP has been 120/80 per home health nurse ADAN Reveles [address], [place], [address], [facility] [employer] 01/19/2024 10:48:44 04/15/2024 text/html no changes , cut back on miralax . ADAN Reveles [address], [place], [address], [facility] [employer] 05/05/2024 10:00:03 07/22/2024 text/html If I could get r id of these spasms , I'd be just fine . someone suggested Botox . on 4 gm of vit d , neurologist said that was the best dose ADAN Reveles [address], [place], [address], [facility] [employer] 07/26/2024 16:27:03 10/11/2024 text/html no changes, ADAN Terrell [address], [place], [address], [facility] [employer] [facility] 10/29/2024 18:01:27
--- OUTSIDE RECORDS SUMMARY | 2024-12-04 20:29 | XMS_ITS | Encounter Summary ---
Author Organization [facility] Address [facility] [place] [address] Care Team Providers Care Authorization Nurse Name Role Phone Catia Atkins MD Primary Care Provider Encounter Details Date Type Department Care Team (Late st Contact Info) Description 07/15/2024 12:18 PM CDT - 07/15/2024 11:59 PM CDT Hospital Encounter [facility] DIAGNOSTIC RAD [facility] [address] [facility] [place] [address] Regino Waite MD [facility] [facility] [place] [address] Discharge Disposition: Home or Self Care Social [...] Name Priority Date/Time Associated Diagnosis Comments XR LUMBAR SPINE 4VW OR MORE Routine 07/15/2024 12:45 PM CDT Lumbar pain documented in this encounter Results * XR Lumbar Spine 4Vw or [...] study. Report dictated by Bobby Abarca MD (residential program director). I, Marquez White MD have personally reviewed and interpreted this examination/study. > Interpreting Provider: Marquez White MD on 07/15/2024 3:47 PM Narrative 07/15/2024 3:47 PM CDT PROCEDURE: ??XR LUMBAR SPINE 4VW OR MORE, DATE/TIME OF EXAM: ??07/15/2024 12:45 PM, LOCATION ??[facility] INDICATION: M54.50: Lumbar pain ADDITIONAL CLINICAL INFORMATION: [...] DATE/TIME OF EXAM: 07/15/2024 12:45 PM, LOCATION [facility] INDICATION: M54.50: Lumbar pain ADDITIONAL CLINICAL INFORMATION: [...] study. Report dictated by Bobby Abarca MD (residential program director). I, Marquez White MD have personally reviewed and interpreted this examination/study. > Interpreting Provider: Marquez White MD on 07/15/2024 3:47 PM Regino Waite MD DIAGNOSTIC IMAGING O RDERABLES documented in this encounter Visit Diagnoses Diagnosis Lumbar pain Lumbago documented in this encounter Care Teams Authorization Nurse Relationship Specialty Start Date End Date Catia Atkins MD [address] [place] [address] PCP - General 06/28/19 documented as of this encounter
--- OUTSIDE RECORDS SUMMARY | 2024-12-04 20:29 | XMS_ITS | Referral Summary ---
Author Organization [facility] Address [address] [place] [address] Care Team Providers Care Sumo Wrestler Name Role Phone Catia Atkins MD Primary Care Provider [phone] Source Comments [facility],non-owned Affiliates and Associated Physician Practices is amultiple site organization consisting of ambulatory clinics and hospital sitesin [place], [place], [place] and [place]. This disclosure is being madepursuant to the Care Everywhere program and may not contain all information available regarding this patient. 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 No 09/28/2022 Plan of Treatment Not on file Procedures Procedure Name Priority Date/Time Associated Diagnosis Comments BASIC METABOLIC PANEL (CALCIUM TOTAL) Routine 10/01/2022 1:43 AM MENTAL HEALTH AIDES TEACHER from Last 3 Months or Most Recently Relevant to Health Maintenance Results * (ABNORMAL) BASIC METABOLIC PANEL (CALCIUM TOTAL) (10/01/2022 1:43 AM MENTAL HEALTH AIDES TEACHER) BUN 20 7 - 26 mg/dL 10/01/2022 2:20 AM [facility] Creatinine 0.71 0.71 - 1.16 mg/dL 10/01/2022 2:20 AM [facility] Sodium 137 136 - 145 mmol/L 10/01/2022 2:20 AM [facility] Potassium 3.8 3.5 - 4.5 mmol/L 10/01/2022 2:20 AM [facility] Chloride 106 98 - 107 mmol/L 10/01/2022 2:20 AM [facility] CO2 23 22 - 29 mmol/L 10/01/2022 2:20 AM [facility] Glucose 107 70 - 115 mg/dL 10/01/2022 2:20 AM [facility] Calcium 8.5 8.4 - 10.2 mg/dL 10/01/2022 2:20 AM [facility] Anion Gap 12 8 - 18 10/01/2022 2:20 AM [facility] BUN/Creatinine Ratio 28(H) 7 - 23 10/01/2022 2:20 AM [facility] Osmolality Calculated 287 270 - 300 mOsm/kg 10/01/2022 2:20 AM [facility] eGFR by CKD-EPI >90 >=90 mL/min/1.7 3 m2 10/01/2022 2:20 AM [facility] Blood BLOOD SPECIMEN / Unknown Lab Venipuncture / Unknown 10/01/2022 1:43 AM M[facility]ES TE[employer]ER 10/01/2022 1:53 AM [facility] Ramon Gonzalez MD LAB - CHEMISTRY FELICIA MENDEZ [facility] [address] [place] [address], [facility] [phone] from Last 3 Months or Most Recently Relevant to Health Maintenance Advance Directives * Full Code (Latest Code Status on File) Date Activated Date Inactivated Comments 09/27/2022 11:59 PM 10/01/2022 5:22 PM Care Teams Sumo Wrestler Relationship Specialty Start Date End Date Catia Atkins MD [address] [place] [address] [address] [place] [address] PCP - General 8/5/19
--- OUTSIDE RECORDS SUMMARY | 2024-12-04 20:29 | XMS_ITS | Encounter Summary ---
Author Organization [facility] Address [facility] [place] [address] Care Team Providers Care Casting Cleaner Name Role Phone Catia Atkins MD Primary Care Provider [phone] Encounter Details Date Type Department Care Team (Latest Contact Info) Description 07/22/2024 Travel Social History Tobacco Use Types Packs/Day [...] on filedocumented in this encounter Care Teams Casting Cleaner Relationship Specialty Start Date End Date Catia Atkins MD [address] [place] [address] PCP - General 06/28/19 documented as of this encounter
--- OUTSIDE RECORDS SUMMARY | 2024-12-04 20:30 | XMS_ITS | Encounter Summary ---
Author Organization [facility] Address [address] [place] [address] Care Team Providers Care Gis Database Administrator Name Role Phone Catia Atkins MD Primary Care Provider Reason for Referral * Consultation (Routine) - Closed Specialty Diagnoses / Procedures Referred By Contac t Referred To Contact Diagnoses Transverse myelitis (HCC) Ramon Gonzalez MD [address] [address] Referral ID Status Reason Start Date Expiration Date V isits Requested Visits Authorized [id number] Closed Specialty Services Required 10/01/2022 10/01/2023 1 1 TICKET DISTRIBUTOR Reason for Visit * Reason Comments Weakness Pt BIBEMS from [facility] with a C/O weakness and numbness with mild tingling sensation to both upper extremities and face. Pt stated he is unable to move both legs about 5 Weeks now . AO4. Pt came with Kothari's catheter same placed 12 days ago * Auth/Cert (Routine) Specialty Diagnoses / Procedures Referred By Contac t Referred To Contact Referral ID Status Reason Start Date Expiration Date Visits Re quested Visits Authorized [id number] 1 1 Encounter Details Date Type Department Care Team (Late st Contact Info) Description 09/27/2022 7:43 PM CDT - 10/01/2022 4:21 PM WORK TICKET DISTRIBUTOR Hospital Encounter [facility] [address] [place] [address] Jessica Crawford MD [address] [place] [address] Eduardo Thorne MD [address] [place] [address] Avery Moreno MD [address] DIV [place] [address] Ramon Gonzalez MD [address] [place] [address] Neurology Discharge Disposition: Home Health Care Svc Social History Tobacco Use Types Packs/Day Years Used Date Smoking Tobacco: Former Cigarettes Smokeless Tobacco: Former Tobacco Cessation:Counseling Given: Not Answered Alcohol Use Standard Drinks/Week Comments Yes 0 [...] on one occasion? Less than monthly 09/27/2022 Hunger Vital Sign Answer Date Recorded Within [...] Sign Reading Time Taken Comments Blood Pressure 133/72 10/01/2022 11:50 AM WORK TICKET DISTRIBUTOR Pulse 82 10/01/2022 11:50 AM WORK TICKET DISTRIBUTOR Temperature 36.9 ??C (98.4 ??F) 10/01/2022 11:[address] Respiratory Rate 16 10/01/2022 4:10 AM WORK TICKET DISTRIBUTOR Oxygen Saturation 98% 10/01/2022 11:50 AM WORK TICKET DISTRIBUTOR Inhaled Oxygen Concentration - - Weight 70.8 kg (156 lb) 09/27/2022 7:42 PM CDT Height 177.8 cm (5' 10) 09/27/2022 7:42 PM CDT Body Mass Index 22.38 09/27/2022 7:42 PM CDT documented in this encounter Functional Status [...] No 09/28/2022 documented as of this encounter Discharge Summaries * Ramon Gonzalez MD - 10/01/2022 10:24 AM CST Physician Discharge Summary Patient ID: Binu Justin [id number] 61 year old 1960 Admit date: 09/27/2022 Discharge date: 10/01/2022 Admitting Physician: Ramon Gonzalez MD Discharge Physician: Ramon Gonzalez MD Admission Diagnoses: Transverse myelitis Discharge Diagnoses: Transverse myelitis most likely secondary to COVID-19 Discharged Condition: good Hospital Course: Binu Justin is a 61 year old male with a PMHx of low back pain, sacroiliitis, heavy smoker, alcohol abuse and newly dx of cervical and lumbar transverse myelitis (5 weeks ago) who [facility] worsening new numbness and tingling in his face and arms. Per patient he had COVID-19 in mid Septmeber with symptoms of rhinorrhea, congestion, myalgias and fever he quarantined at home for five days and on August 17 or ? he woke up and noticed his feet and ankles were numb and weak. The weakness and numbness continued progressing up his legs over the next 24 hours and he was unable to feel himself void or have BM. He went to [facility] where imaging and CSF obtained and found to have transverse in the L spine. He was given 5 days of high dose steroids and discharged to rehab. A week later while at rehab he became altered and began having numbness in his arms and over his abdomen and was readmitted to [facility] where MRI C spine foundcervical transverse myelitis. He was given another 3 days of high dose steroids and discharged to rehab again. Per facility no CSF infectious or autoimmune has panel has returned positive. Patient was transferred to [facility] for further evaluation, workup and management. Here at [facility], the patient received two doses of IVIG in two days. Initially the patient had no sensations in the lower extremities, however today 10/01, the patient had some sensations in the legs. The patient underwent lumbar puncture on 09/30 with no complications and his CSF was sent to testing. Additionally, the patient underwent EMG/NCS on 09/30. 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 The chronicity is determined based on the needle EMG exam findings on the right lower limb. This chronicity is not fully confirmed as needle EMG exam of the contralateral side was not done. Possibleetiology for this neuropathy should include- but not be limited to- metabolic and systemic disorders (diabetes, amyloidosis); collagen and autoimmune disorders, endocrinopathy; nutrition and toxic shayan ologies. The patient grew Pseudomonas on urine culture, and he was started on 7 days of Ciprofloxacin. The patient is okay to be discharged. He will be followed up in clinic in neurology clinic with . Consults: Neurology Significant Diagnostic Studies: Imaging: MRI LUMBAR SPINE WWO CONTRAST Result Date: 09/29/2022 IMPRESSION: 1.Multilevel degenerative disc and joint disease as detailed level by level above. 2.Faint enhancement of the cauda equina nerve roots likely within normal limits. > Interpreting Provider: Susana Graf MD on 09/29/2022 8:59 PM Treatments: See hospital course Discharge Exam: ?? Cortical Function Mental Status Awake, alert, follows commands Orientation Person, place, time, and situation Language Fluency intact, comprehension intact, repetition intact Visual Hayden Intact bilaterally to confrontation Neglect No visual neglect noted, no tactile neglect noted ?? Cranial Nerves II Pupils 3 mm and bilaterally reactive to light. Fundoscopic exam not performed. VIII Hearing is intact bilaterally to finger rub. III/IV/ Extraocular muscles intact. No diplopia, ptosis, nystagmus or convergence abnormalities noted. IX/X Palate elevated symmetrically without phonation abnormalities noted. V Facial sensation symmetric to light touch and intact bilaterally. Corneal reflex not examined. XIHead turning and shoulder shrug are intact. VII No facial palsy noted. XII Tongue is midline with normal movements and no atrophy noted. ?? Motor Function Movement No abnormalities noted Bulk Decrease on legs Tone Concern for hypotonia ? Proximal Upper Distal Upper Proximal Lower Distal Lower Right 5/5 5/5 0/5 0/5 Left 5/5 5/5 0/5 0/5 ?? Muscle Stretch Reflexes ?? BI TRI BR PAT ACH TOES Right 1 1 1 1 0 Up Left 1 1 1 0 0 Up ?? Sensory Light Touch Light touch improvement in legs Noxious Stimuli Intact to ~T10 can feel very noxious stimuli below T12 as something sharp ?? Urine and bowel incontinence ?? Cerebellar ?? FNF Right Intact Left Intact ?? Gait Unable to walk Disposition: Home Patient Instructions: Discharge Instructions You were admitted to the hospital due to weakness of the legs and numbness. You were evaluate by the neurology team at the hospital. A lumbar puncture (spinal tap was done fordiagnosis). Additionally, some blood tests were also done to find out the cause. The results of those will be discussed with you when they return. Some medications have been added. Please take Ciprofloxacin 500mg one tablet every 12 hours for urinary tract infection Please take Levonox injection for prevention of clot formation in the legs Home health has been ordered for you. Physical and occupational therapy and assistance with catheter and health will help you with therapy and rehabilitation at home. You are okay to be discharged home. Current Discharge Medication List START taking these medications Instructions Authorizing Provider ciprofloxacin 500 MG tablet Commonly known as: Cipro Quantity Dispensed: 14 tablet Take 1 (one) tablet by mouth every 12 hours for 7 days Jayla Dutton MD enoxaparin 40 MG/0.4ML injection Commonly known as: Lovenox Quantity Dispensed: 12 mL Start taking on: October 02, 2022 Inject 40 (forty) mg subcutaneously once daily for 60 days Edu Wood, DO CONTINUE taking these medications which have NOT CHANGED Instructions Authorizing Provider acetaminophen 325 MG tablet Commonly known as: Tylenol Take 1 (one) tablet by mouth every 4 hours as needed for Fever or Pain Maximum allowable Acetaminophen amount = 4 Grams (4000 mg) / 24 hours. Albuterol Sulfate 108 (90 Base) MCG/ACT bisacodyl 10 MG suppository Commonly known as: Dulcolax Insert 1 (one) suppository into the rectum once daily as needed for Constipation calcium carbonate 1250 (500 Ca) MG chew tablet Commonly known as: Calci-Chew Take 1 (one) tablet by mouth 4 times daily as needed after meals/at bedtime for Heartburn Fluticasone Furoate 50 MCG/ACT Aepb loratadine 10 MG tablet Commonly known as: Claritin Take 1 (one) tablet by mouth once daily Melatonin 3 MG ondansetron 4 MG tablet Commonly known as: Zofran Take 1 (one) tablet by mouth every 6 hours as needed for Nausea/Vomiting pantoprazole EC 40 MG tablet Commonly known as: Protonix Take 1 (one) tablet by mouth 2 times daily polyethylene glycol 3350 17 g packet Commonly known as: Miralax Take by mouth once daily Activity: activity as tolerated Diet: Regular diet Wound Care: As directed Signed: Jose Ramon Man Neuro PGY2 ?? I have seen and examined the patient with the resident and I agree with the findings and plan of care as documented by the resident. Date of Service:??10/01/22?? History??61-year-old WM. ??About 5 weeks ago he developed Covid] did not receive antiviral drugs] and about 5 days after this developed sudden weakness of his lower extremities with loss of sensationand neurogenic bladder. ??He was evaluated in OSH and diagnosed to have acute transverse myelitis and underwent an MRI and also LP CSF and was treated with high-dose steroids [and he says antibiotics] for 5 days. ??He says that he never fully recovered from this weakness but had ups and downs and received a second dose of steroid treatment and was discharged to rehab. ??He states that he continues to have severe weakness in his legs and recently also developed some paresthesias in his upper extremities but retains strength in the upper extremities. ??He has no history of genital herpes he continues to have daily bowel movements. Received IVIG 1 g/kg slow infusion yesterday. He had no major adverse effects and no headaches. He is cheerful today and not emotional. He had his LP CSF done yesterday and the procedure went very well. He has noticed slight movements in his lower extremities which he says are not voluntary. He also thinks that there is some return of sensation in his legs. Hehas been detected to have a UTI with Pseudomonas. Reviewed the MRI scan of the cervical thoracic and lumbar spine from OSH and no lesions seen in the spinal cord or roots. He has completed 2 days of IVIG 1 g/kg. He has tolerated the treatment well. ?? Examination.?Awake alert oriented x3 but cheerful and normal mood and affect. No cranial nerve palsies. ??Upper extremities have normal muscle strength, tone but deep tendon reflexes are not elicited in the upper extremities. ??Lower extremities there is muscle wasting in his quadriceps and calfmuscles, hypotonia, muscle strength is 0/5 but has an occasional flicker of movement in the knee flexors. ??There are also involuntary movements seen in his toes. Right knee jerk is++??and left knee jerk is++.?Ankle jerks are absent. ??Plantar reflex shows bilateral Babinski] extensor] response.??He has a sensory level but today he is able to appreciate sensation in his lower extremities overthe thighs and arnold and the soles of the feet. Vibration sense is present in his toes and at the knees but diet and position sense is absent. Cremasteric reflex is absent on both sides. ??Exam of the thoracolumbar spine is normal. ??He had repeat brain MRI here yesterday that is unremarkable. ??MRI of the cervical spine shows some mild disc bulges but no compression of the cervical spinal cord or roots. ??MRI of the T-spine is normal.??Had MRI L spine yesterday that does not show compression of roots or enhancement. CSF report from OSHhad 138 cells Lymphocytes and 216 protein normal glucose.?? EMG and nerve conduction studies done today show some evidence of axonal sensorimotor peripheral neuropathy. Details in the report. UA shows evidence of UTI. Has indwelling catheter and this could be CAUTI. ?? Diagnosis.?He has clinical signs of a spinal cord lesion segmental level of T10 that came on acutely following a COVID infection. 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 But will search for other causes. ?? Plan.?CSF VDRL and DWAYNE are awaited. Will start ciprofloxacin for CAUTI and removal of the indwelling catheter and replacement with a new catheter. Serum for NMO and MOG antibodies pending. ??RPR and VDRL in the CSF, JUANY< ANCA, Lyme serology. All these results are pending To continue DVT prophylaxis and PT OT. ??Bladder training with clamping of the indwelling catheter and periodic release. Follow-up with neurology clinic with Dr. Pham neuro chemical recovery operator. ?? Please see resident notes for details ?? Ramon Gonzalez MD Attending Physician, Neurology TICKET DISTRIBUTOR documented in this encounter Discharge Instructions * Discharge Instructions* Jose Ramon Man MD - 10/01/2022 10:21 AM WORK TICKET DISTRIBUTOR You were admitted to the hospital due to weakness of the legs and numbness. You were evaluate by the neurology team at the hospital. A lumbar puncture (spinal tap was done fordiagnosis). Additionally, some blood tests were also done to find out the cause. The results of those will be discussed with you when they return. Some medications have been added. Please take Ciprofloxacin 500mg one tablet every 12 hours for urinary tract infection Please take Levonox injection for prevention of clot formation in the legs Home health has been ordered for you. Physical and occupational therapy and assistance with catheter and health will help you with therapy and rehabilitation at home. You are okay to be discharged home. You will be scheduled for a neurology appointment. If you have any questions or concerns feel free to call the neurology [facility] at [phone]. TICKET DISTRIBUTOR documented in this encounter Medications at Time of Discharge Medication Sig Dispensed Refills Start Date End Date acetaminophen (Tylenol) 325 MG tablet Take 1 (one) tablet by mouth every 4 hours as needed for Fever or Pain Maximum allowable Acetaminophen amount = 4 Grams (4000 mg) / 24 hours. calcium carbonate (Calci-Chew) 1250 (500 Ca) MG chew tablet Take 1 (one) tablet by mouth 4 times daily as needed after meals/at bedtime for Heartburn Albuterol Sulfate 108 (90 Base) MCG/ACT 07/15/2024 apixaban (Eliquis) 2.5 MG tablet Take 1 (one) tablet by mouth 2 times daily for 30 days 30 tablet 1 10/01/2022 10/31/2022 bisacodyl (Dulcolax) 10 MG suppository Insert 1 (one) suppository into the rectum once daily as needed for Constipation 07/15/2024 ciprofloxacin (Cipro) 500 MG tablet Take 1 (one) tablet by mouth every 12 hours for 7 days 14 tablet 10/01/2022 10/08/2022 Fluticasone Furoate 50 MCG/ACT AEPB 07/15/2024 loratadine (Claritin) 10 MG tablet Take 1 (one) tablet by mouth once daily 07/15/2024 Melatonin 3 MG 07/15/2024 ondansetron (Zofran) 4 MG tablet Take 1 (one) tablet by mouth every 6 hours as needed for Nausea/Vomiting 07/15/2024 pantoprazole EC (Protonix) 40 MG tablet Take 1 (one) tablet by mouth 2 times daily 07/15/2024 polyethylene glycol 3350 (Miralax) 17 g packet Take by mouth once daily 07/15/2024 documented as of this encounter Progress Notes * Yulissa Welch RN - 10/01/2022 4:10 PM CST Patient sent home with no kothari cath, per patient request. MD aware. Meds given. Paperwork discussed with patient and spouse. TICKET DISTRIBUTOR * Jose Ramon Man MD - 10/01/2022 3:52 PM CST The patient has been refusing foleys catheter. He has had urine output (recorded in Epic). I counseled the patient in extensive detail about the risks of not getting a catheter including infection, no bladder sensations. The patient was adamant on not wanting to get a catheter. I counseled him regarding going to the nearest hospital when he feels that he hasnt urinated like previous days, or when he is not able to feel the bladder fulness. Patient and agreed and stated understanding Patient can be discharged The situation was discussed with the attending Dr. Carlos Man Neuro PGY2 TICKET DISTRIBUTOR * Yulissa Welch RN - 10/01/2022 3:35 PM CST Patient refusing kothari catheter. Neuro team aware. Urine output and PVR recorded in chart. TICKET DISTRIBUTOR * Rowan Nielsen, PT - 10/01/2022 2:37 PM CST [facility] Department of Physical Medicine & Rehabilitation Progress Note Patient: Binu Justin Med Record Number: [id number] Date of : 1960 Age: [age] year old 10/01/22 1400 Missed Visit Missed Visit Other (Comment) Pt declines PT 2/2 awaiting d/c. States he has equipment set up at home: w/c, sliding board, ramp, hospital bed. Will cont to follow. TICKET DISTRIBUTOR * Yimi Live CPhT - 10/01/2022 2:10 PM CST MEDICATION TO BEDSIDE DELIVERY: COMPLETE Medication to Bedside delivery was completed for Binu Justin. ??? A total of 2 prescriptions were delivered to the patient for discharge. ??? Medications were given to NURSE (SIMONE AWARE OF MEDS GIVEN TO PT) ??? This delivery included a controlled substance: NO ??? This delivery included medication that should be stored in the fridge: NO Thank you for allowing the outpatient pharmacy to participate in the care of Binu Justin. If you have any questions, please contact the outpatient pharmacy at [phone]. Yimi Live CPhT [facility] at [address] [place], [place] [address] Hours of Operation Friday - Friday: 8:00am to 6:00pm Friday: 9:00am to 1:00pm Epic: [facility] *Ensure the patient and clinic's nearby ZIP codes box is unchecked* TICKET DISTRIBUTOR * Olu Kennedy RN - 10/01/2022 10:32 AM CST Case Management Progress Note Anticipated level of care at discharge: Home Health Care Discharge Plan: Patient discharging home with no DME or further CM needs. Pt accepted by [facility]. Basic Needs Assessment (BNA) Score: Anticipated Discharge Date: Anticipated Discharge Date: 10/02/22 Patient/Family provided with list of resources? Unknown Preferred Provider / High Quality Network List given?: Unknown Reason for provider choice: Unknown Transportation at Discharge: Ambulance Follow Up Appointment: Transportation to MD:Family Equipment at Home: Equipment at Home: Hospital Bed;Chair-Shower;Commode-Bedside;Wheelchair-Standard List DME patient requires but does not have: DME Provider: Hunger Screening: Within the past 12 months, you worried that your food would run out before you got the money to buymore.: Never true Within the past 12 months, the food you bought just didn't last and you didn't have money to get more.: Never true Food Bank Resources Provided: Patient refused Medication affordability concerns: Auth Number (if required) NH: DME: Medications: Transportation: Name: Olu Kennedy RN Phone: [phone] TICKET DISTRIBUTOR * Mary Paula - 10/01/2022 8:13 AM CST General Neurology Progress Note Binu Justin Age: [age] year old Date of : 1960 Date of Admission: 09/27/2022 Hospital Day: 4 Subjective Brief HPI: Binu Justin is a 61 year old male with a PMHx of low back pain, sacroiliitis, heavy smoker, alcohol abuse and newly dx of cervical and lumbar transverse myelitis (5 weeks ago) who [facility] for worsening new numbness and tingling in his face and arms. Per patient he had COVID-19 in mid Septmeber with symptoms of rhinorrhea, congestion, myalgias and fever he quarantined at home for five days and on August 17 or ? He woke up and noticed his feet and ankles were numb and weak. The weakness and numbness continued progressing up his legs over the next 24 hours and he was unable to feel himself void or have BM. He went to [facility] where imaging and CSF obtained and found to have transverse in the L spine. He was given 5 days of high dose steroids and discharged to rehab. A week later while at rehab he became altered and began having numbness in his arms and over his abdomen and was readmitted to [facility] where MRI C spine foundcervical transverse myelitis. He was given another 3 days of high dose steroids and discharged to rehab again. Per facility no CSF infectious or autoimmune has panel has returned positive. ?? Patient states that in last week he felt that some of his sensory was returning on the back of his thighs. He could tell that when he is trying to move his legs he feels his thighs ava. Also the numbness and tingling in his arms had resolved. However today he was in PT when he began noticing his numbness in b/l hands up to his shoulders andnumbness around his mouth, this made him very nervous that inflammation was progressing in his spine. He was transferred to [facility] for further evaluation. Interval History: No acute events. Tolerated second dose of IVIG. No headaches, stomach aches, N/V. Patient reported the tingling/numbness in his face and arms were the same with no improvement. Objective Patient Vitals for the past 24 hrs: BP Temp Temp src Pulse Resp SpO2 10/01/22 0718 117/84 98.4 ??F (36.9 ??C) Oral 74 -- 98 % 10/01/220 105/72 98.3 ??F (36.8 ??C) Oral 79 16 97 % 09/30/222010 128/75 97.7 ??F (36.5 ??C) Oral 72 16 96 % 09/30/22 1722 107/71 98.7 ??F (37.1 ??C) Oral 82 20 98 % 09/30/22 1530 111/69 98.6 ??F (37 ??C) Oral 86 -- 97 % 09/30/22 1500 120/70 98.4 ??F (36.9 ??C) -- 86 -- 97 % 09/30/22 1429 110/66 98.4 ??F (36.9 ??C) -- 90 20 97 % 09/30/22 1353 111/70 -- -- 89 20 -- 09/30/22 1306 126/91 97.8 ??F (36.6 ??C) Axillary 90 20 98 % 09/30/22 1040 109/67 98.4 ??F (36.9 ??C) Oral 82 18 96 % Intake/Output Summary (Last 24 hours) at 10/01/2022 0813 Last data filed at 10/01/2022 0410 Gross per 24 hour Intake 200 ml Output 4400 ml Net -4200 ml Exam: ?? General: NAD, afebrile, responding to commands, interacting Heent - NCAT, MMM, anicteric Neck - No JVD, LAD, trachea midline CV - RRR for age, normal s1/s2, no m/r/g Pulm - CTAB, no w/r/r Abd - BS+, soft, NTND ?? Cortical Function Mental Status Awake, alert, follows commands Orientation Person, place, time, and situation Language Fluency intact, comprehension intact, repetition intact Visual Hayden Intact bilaterally to confrontation Neglect No visual neglect noted, no tactile neglect noted ?? Cranial Nerves II Pupils 3 mm and bilaterally reactive to light. Fundoscopic exam not performed. VIII Hearing is intact bilaterally to finger rub. III/IV/ Extraocular muscles intact. No diplopia, ptosis, nystagmus or convergence abnormalities noted. IX/X Palate elevated symmetrically without phonation abnormalities noted. V Facial sensation symmetric to light touch and intact bilaterally. Corneal reflex not examined. XIHead turning and shoulder shrug are intact. VII No facial palsy noted. XII Tongue is midline with normal movements and no atrophy noted. ?? Motor Function Movement No abnormalities noted Bulk Atrophy in b/l LE Tone Concern for hypotonia ? Proximal Upper Distal Upper Proximal Lower Distal Lower Right 5/5 5/5 0/5 0/5 Left 5/5 5/5 0/5 0/5 ?? Muscle Stretch Reflexes ?? BI TRI BR PAT ACH TOES Right 1 1 1 1 0 Up Left 1 1 1 0 0 Up ?? Sensory Light Touch Light touch intact to T10, Alto sensation in ankle when grabbing it. He felt sensation in his feet and toes when doing babinski Noxious Stimuli Intact to ~T10 can feel very noxious stimuli below T12 as something sharp ?? Urine and bowel incontinence No proprioception of the toes ?? Cerebellar ?? FNF Right Intact Left Intact ?? Gait Unable to walk ?? Labs: -RPR negative -JUANY: pending -Leukocytosis with Ganglioside ab panel: pending -CHIEF MEDICAL TECHNOLOGIST demyelinating: in process -NMO/AQP4 in process Labs: Recent Labs Component Name 10/01/2214209/30/221709/29/22132 WBC 7.2 10.9* 14.2* RBC 3.76* 4.02* 4.07* HGB 11.2* 11.9* 12.3 HCT 33.7* 36.5 35.7 Recent Labs Component Name 10/01/2214209/30/221709/29/22132 NA 137 139 137 CL 106 106 104 CO2 23 21* 24 BUN 20 18 20 CREATININE 0.71 0.75 0.65* CALCIUM 8.5 8.9 9.0 No results for input(s): MG in the last 33538 hours. No results for input(s): PHOS in the last 54313 hours. No results for input(s): PT, INR, PTT in the last 30890 hours. No results for input(s): A1C in the last 66146 hours. No results for input(s): CHOL, HDL, LDLCALC, TRIG, CHOLHDL in the last 94537 hours. No results for input(s): TSH in the last 07765 hours. Invalid input(s): FT4, TOTT3 No results for input(s): CKMB, CKTOTAL, CKMB, TROPONINI, BNP in the last 47862 hours. Imaging: MRI LUMBAR SPINE WWO CONTRAST: 09/29/22 IMPRESSION: ?? 1.Multilevel degenerative disc and joint disease as detailed level by level above. 2.Faint enhancement of the cauda equina nerve roots likely within normal Limits. MRI BRAIN CERVICAL SPINE WWO CONTRAST: 09/28/22 IMPRESSION: ?? 1.Abnormal FLAIR signal and abnormal enhancement involving the right superior cerebellar peduncle. Findings are nonspecific however concerning for progressive supranuclear palsy, (PSP). Other differential considerations are not excluded. 2.Minimal foci of patchy abnormal signal and enhancement predominantly in the posterior and lateral aspects of the cervical cord at the level of C4 and C6. Findings are nonspecific and could be seen in the setting PSP or represent sequela of patient's prior transverse myelitis. Clinical correlation is recommended. Please correlate with prior imaging if available. 3.Minimal punctate enhancement around the thoracic cord likely vascular in nature. Otherwise, no abnormal enhancement in the thoracic spine. 4.Multilevel degenerative disc and joint disease as outlined above. NERVE CONDUCTION TEST- 10/01/22 Conclusions: ?? This study is incomplete due to patient???s intolerance to the needle EMG exam as above. ?? This study is abnormal. ?? 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 The chronicity is determined based on the needle EMG exam findings on the right lower limb. This chronicity is not fully confirmed as needle EMG exam of the contralateral side was not done. Possible etiology for this neuropathy should include- but not be limited to- metabolic and systemic disorders (diabetes, amyloidosis); collagen and autoimmune disorders, endocrinopathy; nutrition and toxic etiologies. Clinical correlation is recommended. ?? 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 The patients facial numbness has resolved. On Neurologic examination the patient presents with bilaterally LE areflexia, hypotonia, and atrophy, which are consistent with lower motor neuron etiology.This is consistent with the patients history of spondylosis and nerve impingement at L4-L5. The patients babinski was positive bilaterally, which is concerning for upper motor neuron process. On current admission the MRI WWO contrast does not indicate inflammation of the cervical or thoracic spine.Lumbar puncture showed elevated protein 143; compared to [facility] at [facility]. Suggestive of a radiculomyelopathy, further workup/tests are pending. ?? Differential includes workup for infectious (COVID-19) vs post infectious process vs radiculomyelopathy vs exacerbation of transverse myelitis. 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 Will need further workup. ?? Plan #Transverse Myelitis #B/L leg weakness and numbness #Recurrence of b/l arm numbness - Second day of IVIG 1gm/kg, day 2/2 completed. - Obtaining CSD1 (NMO and MOG ) antibodies - GB Antibodies -Nerve conduction test (H and F reflex tests), completed -CHIEF MEDICAL TECHNOLOGIST demyelinating pending -Patient consented for LP. Previous LP from OSH had increased WBC, previous CSF VDRL, HSV PCR were negative. Recent LP shows 143 proteins. -JUANY blood -RPR was negative -Lyme disease pending -[facility], send home with prescription - DC home; follow up with social work for recommendation to [facility] ?? #UTI -patient has a history of UTI 2/2 to catheter usage. Last infection at [facility] was positive for Pseudomonas and was treated with a 6 day course of Cefepime -Patient has 100+ cells in UA, + nitrates and leukocyte esterases -Treat patient for UTI with Ciprofloxacin 250mg q12 7 days,(day 2); send patient home with 5 daysof Cipro -Change patients catheter, and wait a few hours to see if the patient feels bladder sensation, thendo bladder scan. -UDS pending -Urine Culture Pending #Leukocytosis, resolved Downward trending,WBC: 7.2 #Constipation -continue home Miralax daily #GERD - continue home protonix 40mg daily ?? #Insomnia - continue zolpidem 5mg qHs ?? Case findings discussed with Dr. Gonzalez, Attending physician. Mary Paula Medical Student TICKET DISTRIBUTOR * Darion Koroma - 09/30/2022 4:26 PM CST encountered pt and pts (Sharri). Pt is emotional about what he is going through. 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 He says he knows things like this happen and that he knows God has reasons for things. He is leaning on the Drs and Sharri during this time. Pt is open to prayer and test puller prayed with he and his . Pt is aware that test puller care is available 16/06. / Rev. Manoj Koroma Ascom# [id number] TICKET DISTRIBUTOR * Olu Kennedy RN - 09/30/2022 2:53 PM CST A Chart Review has been conducted by Case Management. Anticipated level of care at discharge: Home Health Care Discharge Plan: Discharge needs pending response to clinical treatment and therapies recommendations. Current recommendation is for discharge home with home health. Referral sent to [facility],per pt request. Basic Needs Assessment (BNA) Score: 7 Anticipated Discharge Date: 10/02/22 PCP: Catia Atkins MD Per nursing assessment. A/O x 4 Transportation at discharge: Ambulance Transportation (who): Marketing Operations Intern/Support: Spouse Marketing Operations Intern person: Home/Functional Status: Functional and Cognitive Status Is person deaf or have serious hearing difficulty?: No Is person blind or have serious difficulty seeing?: No Does person have serious difficulty walking/climbing stairs?: Yes Does person have difficulty dressing/bathing?: Yes Does person have difficulty doing errands alone?: Yes Does person have difficulty concentrating/remembering/making decisions?: No Equipment with patient: None Assistive Devices: None ?. Will continue to follow. For any questions or needs please contact: Pumper Gauger Apprentice Name/Phone number: Olu Kennedy RN' [phone] TICKET DISTRIBUTOR * Junie Lucero, PT - 09/30/2022 2:20 PM CST [facility] Department of Physical Medicine & Rehabilitation Patient: Binu Justin Med Record Number: [id number] Date of : 1960 Age: [age] year old 09/30/22 1420 Missed Visit Missed Visit Per OT, patient just refused due to fatigue and receiving IVIG TICKET DISTRIBUTOR * Sylwia Luna OT - 09/30/2022 1:13 PM CST [facility] Department of Physical Medicine & Rehabilitation Progress Note Patient: Binu Justin Med Record Number: [id number] Date of : 1960 Age: [age] year old 09/30/22 1313 Missed Visit Missed Visit Other (Comment) Pt declined OT at this time due to just got back to room after several procedures this AM, requestsOT at a later time. Will continue to follow. 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 DIOGENES Heredia, RIMA Learning Support Assistant [phone] 09/30/2022 11:33 AM TICKET DISTRIBUTOR * Ramon Gonzalez MD - 09/30/2022 11:18 AM CST Neurology Service Progress Note Patient: Binu Justin Age: [age] year old Admission Date and Time: 09/27/2022 Chief Complaint: Transverse Myelitis with new numbness in arms and face History of Presenting Illness: Binu Justin is a 61 year old male with a PMHx of low back pain, sacroiliitis, heavy smoker, alcohol abuse and newly dx of cervical and lumbar transverse myelitis(5 weeks ago) who presents as a transfer from [facility] for worsening new numbness and tingling in his face and arms. Patient with bilateral foot weakness 5 weeks ago, 5 days after COVID infection, and presented to OSH who diagnosed COVID19 infection and sent patient home. Following this, patient with at least 2 recurrent OSH admissions for progressive weakness and decreased sensation with steroids (Salumederol IV) given with each hospitalization. Patient transferred due to increase and worsening of his symtpoms Overnight: No acute events overnight. Patient received 1st IVIG yesterday, with no complications. 2nd is scheduled for today No other systemic complains Objective: BP 109/67 Pulse 82 Temp 98.4 ??F (36.9 ??C) (Oral) Resp 18 Ht 5' 10 (1.778 m) Wt 156 lb (70.8 kg) SpO2 96% Temp (30hrs) Max:98.6 ??F (37 ??C) Body mass index is 22.38 kg/m??. Exam: No change in physical exam yesterday Cortical Function Mental Status Awake, alert, follows commands Orientation Person, place, time, and situation Language Fluency intact, comprehension intact, repetition intact Visual Hayden Intact bilaterally to confrontation Neglect No visual neglect noted, no tactile neglect noted Cranial Nerves II Pupils 3 mm and bilaterally reactive to light. Fundoscopic exam not performed. VIII Hearing is intact bilaterally to finger rub. III/IV/ Extraocular muscles intact. No diplopia, ptosis, nystagmus or convergence abnormalities noted. IX/X Palate elevated symmetrically without phonation abnormalities noted. V Facial sensation symmetric to light touch and intact bilaterally. Corneal reflex not examined. XIHead turning and shoulder shrug are intact. VII No facial palsy noted. XII Tongue is midline with normal movements and no atrophy noted. Motor Function Movement No abnormalities noted Bulk Decrease on legs Tone Concern for hypotonia Proximal Upper Distal Upper Proximal Lower Distal Lower Right 5/5 5/5 0/5 0/5 Left 5/5 5/5 0/5 0/5 Muscle Stretch Reflexes BI TRI BR PAT ACH TOES Right 1 1 1 1 0 Up Left 1 1 1 0 0 Up Sensory Light Touch Light touch intact to T10 Noxious Stimuli Intact to ~T10 can feel very noxious stimuli below T12 as something sharp Urine and bowel incontinence Cerebellar FNF Right Intact Left Intact Gait Unable to walk Labs: Leukocytosis with ganglioside ab panel pending UDS pending UA with U Cx pending collection CHIEF MEDICAL TECHNOLOGIST demyelinating in process NMO/AQP4 in process Neuroimaging: Prelim Read No evidence of large and long segment enhancement. 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 There is tiny intramedullary T2/STIR hyperintensity in the left posterior aspect at C4 level (series 5 image 22) with suspected mild enhancement (series 10 image 22) in the right posterior aspect at C6 level (series 5 image 30) that may represent infectious/inflammatory process. Moderate type II endplate changes at C5 inferior endplate. 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 #Transverse Myelitis Concern pending OSH images #UMN and LMN disease with continued bilateral leg weakness and progression of numbness to face now resolved #Decreased sensation below T10 DDX: transverse myelitis, less likely infectious or autoimmune however noted issues post COVID, less likely NMO due to lesions without ~3 vertebral spaces, less likely ADEM without brain involvement,superimposed lumbar myeloradiculopathy of concern Plan: -EMG & NCS with reflexes ordered. -UDS pending -NMO/AQP4, Gq1b , CDS1 antibodies in process -Will do an LP. Previous LP from OSH had increased WBC, will re-evaluate CSF for change. Would needCSF VDRL, HSV PCR. Additonally, CSF glucose, cell count, protein, gram stain - IVIG today 1gm/kg. Second dose to be done today. - JUANY blood, RPR serum, Lyme disease serology - Follow up on labwork #Leukocytosis WBC count today 10.9, which has decreased from prior counts - Patient has been afebrile. - Will continue to monitor #UTI - Patient's urinalysis show infection. Most likely due to indwelling catheter - Urine cultures sent. Will follow up - Will start Ciprofloxacin 250mg Q12H for 7 days - Continue to monitor for WBC counts, fevers, UTI complications #Constipation - continue home Miralax daily #GERD - continue home protonix 40mg daily #Insomnia - continue zolpidem 5mg qHs Patient to be seen and discussed with Attending Physician, Dr. Carlos Man MD Neuro PGY2 I have seen and examined the patient with the resident and I agree with the findings and plan of care as documented by the resident. Date of Service: 09/30/22 History 61-year-old WM. About 5 weeks ago he developed Covid] did not receive antiviral drugs] and about 5 days after this developed sudden weakness of his lower extremities with loss of sensation and neurogenic bladder. He was evaluated in OSH and diagnosed to have acute transverse myelitis and underwent an MRI and also LP CSF and was treated with high-dose steroids [and he says antibiotics] for5 days. He says that he never fully recovered from this weakness but had ups and downs and receiveda second dose of steroid treatment and was discharged to rehab. He states that he continues to havesevere weakness in his legs and recently also developed some paresthesias in his upper extremities but retains strength in the upper extremities. He has no history of genital herpes he continues to have daily bowel movements. Received IVIG 1 g/kg slow infusion yesterday. He had no major adverse effects and no headaches. He still very emotional and tearful. Reviewed the MRI scan of the cervical thoracic and lumbar spine from OSH and no lesions seen in the spinal cord or roots. Examination. Awake alert oriented x3 but is emotional and tearful because of the leg weakness that has not improved. No cranial nerve palsies. Upper extremities have normal muscle strength, tone but deep tendon reflexes are not elicited in the upper extremities. Lower extremities there is muscle wasting in his quadriceps and calf muscles, hypo-Prolia muscle strength is 0/5 but has an occasional flicker of movement in the knee flexors. Right knee jerk is+ and left knee jerk is++. Ankle jerks are absent. Plantar reflex shows bilateral Babinski] extensor] response. He has a sensory level with loss of sensation below T10 to touch pain temperature, joint and position sense. Cremasteric reflex is absent on both sides. Exam of the thoracolumbar spine is normal. He had repeat brain MRI here yesterday that is unremarkable. MRI of the cervical spine shows some mild disc bulges but no compressionof the cervical spinal cord or roots. MRI of the T-spine is normal. Had MRI L spine yesterday that does not show compression of roots or enhancement. CSF report from OSH had 138 cells Lymphocytes [id number] protein normal glucose. EMG and nerve conduction studies done today show some evidence of axonal sensorimotor peripheral neuropathy. Details in the report. UA shows evidence of UTI. Has indwelling catheter and this could be CAUTI. Diagnosis. He has clinical signs of a spinal cord lesion segmental level of T10 that came on acutely following a COVID infection. 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 Most likely cause is a sequela of Covid. But will search for other causes. Plan. To repeat LP CSF with all tests including VDRL and DWAYNE. Urine culture sent and we will plan for removal of the indwelling catheter and replacement with a new catheter and to send the catheter tip for culture. Will treat the UTI with ciprofloxacin. Serum for NMO and MOG antibodies. To check RPR and VDRL in the CSF if that was done at OSH. Check JUANY< ANCA, Lyme serology. Will do the course of IVIG treatment 1 gm/kg/d X 2 days. DVT prophylaxis and PT OT. Bladder training with clamping of the indwelling catheter and periodic release. He refuses psychiatric consultation and an SSRI for depression. Please see resident notes for details Ramon Gonzalez MD Attending Physician, Neurology TICKET DISTRIBUTOR * Mary Paula - 09/30/2022 10:47 AM CST General Neurology Progress Note Binu Justin Age: [age] year old Date of : 1960 Date of Admission: 09/27/2022 Hospital Day: 3 Subjective Brief HPI: Binu Justin is a 61 year old male with a PMHx of low back pain, sacroiliitis, heavy smoker, alcohol abuse and newly dx of cervical and lumbar transverse myelitis (5 weeks ago) who presents as a transfer from [facility] for worsening new numbness and tingling in his face and arms. Per patient he had COVID-19 in mid Septmeber with symptoms of rhinorrhea, congestion, myalgias and fever he quarantined at home for five days and on August 17 or ? He woke up and noticed his feet and ankles were numb and weak. The weakness and numbness continued progressing up his legs over the next 24 hours and he was unable to feel himself void or have BM. He went to [facility] where imaging and CSF obtained and found to have transverse in the L spine. He was given 5 days of high dose steroids and discharged to rehab. A week later while at rehab he became altered and began having numbness in his arms and over his abdomen and was readmitted to [facility] where MRI C spine foundcervical transverse myelitis. He was given another 3 days of high dose steroids and discharged to rehab again. Per facility no CSF infectious or autoimmune has panel has returned positive. ?? Patient states that in last week he felt that some of his sensory was returning on the back of his thighs. He could tell that when he is trying to move his legs he feels his thighs ava. Also the numbness and tingling in his arms had resolved. However today he was in PT when he began noticing his numbness in b/l hands up to his shoulders andnumbness around his mouth, this made him very nervous that inflammation was progressing in his spine. He was transferred to [facility] for further evaluation. Interval History: No acute events. Tolerated first dose of IVIG. No headaches, stomach aches, N/V. Patient reported the tingling/numbness in his face and arms were the same with no improvement. Objective Patient Vitals for the past 24 hrs: BP Temp Temp src Pulse Resp SpO2 09/30/22 1040 109/67 98.4 ??F (36.9 ??C) Oral 82 18 96 % 09/30/22 0714 122/74 98.5 ??F (36.9 ??C) Oral 81 16 96 % 09/30/22 0349 109/79 97.7 ??F (36.5 ??C) Axillary 80 17 98 % 09/30/22 0216 109/53 -- -- -- -- -- 09/30/22 0021 106/71 -- -- -- -- -- 09/29/22 2348 108/75 -- -- 73 -- -- 09/29/22 2323 106/74 98.4 ??F (36.9 ??C) Oral 79 16 -- 09/29/22 2247 105/68 98.2 ??F (36.8 ??C) Oral 84 16 97 % 09/29/22 2205 113/73 -- -- 95 -- -- 09/29/227 105/60 -- -- 88 -- -- 09/29/22 1939 98/69 98.5 ??F (36.9 ??C) Oral 87 -- 98 % 09/29/22 1850 108/71 -- -- 101 -- 98 % 09/29/22 1818 87/77 -- -- 97 18 95 % 09/29/22 1725 112/87 -- -- 95 18 94 % 09/29/22 1551 114/85 -- -- 96 20 95 % 09/29/22 1438 99/70 -- -- 90 18 96 % 09/29/22 1401 97/70 -- -- 97 20 95 % 09/29/22 1319 94/67 -- -- 85 18 94 % 09/29/22 1259 102/84 -- -- 99 20 96 % 09/29/22 1238 86/74 -- -- 91 18 95 % 09/29/22 1216 98/72 -- -- 96 20 99 % 09/29/22 1201 122/92 98.6 ??F (37 ??C) Oral 96 18 96 % Intake/Output Summary (Last 24 hours) at 09/30/2022 1047 Last data filed at 09/30/2022 1040 Gross per 24 hour Intake 960 ml Output 4800 ml Net -3840 ml Exam: ?? General: NAD, afebrile, responding to commands, interacting Heent - NCAT, MMM, anicteric Neck - No JVD, LAD, trachea midline CV - RRR for age, normal s1/s2, no m/r/g Pulm - CTAB, no w/r/r Abd - BS+, soft, NTND ?? Cortical Function Mental Status Awake, alert, follows commands Orientation Person, place, time, and situation Language Fluency intact, comprehension intact, repetition intact Visual Hayden Intact bilaterally to confrontation Neglect No visual neglect noted, no tactile neglect noted ?? Cranial Nerves II Pupils 3 mm and bilaterally reactive to light. Fundoscopic exam not performed. VIII Hearing is intact bilaterally to finger rub. III/IV/ Extraocular muscles intact. No diplopia, ptosis, nystagmus or convergence abnormalities noted. IX/X Palate elevated symmetrically without phonation abnormalities noted. V Facial sensation symmetric to light touch and intact bilaterally. Corneal reflex not examined. XIHead turning and shoulder shrug are intact. VII No facial palsy noted. XII Tongue is midline with normal movements and no atrophy noted. ?? Motor Function Movement No abnormalities noted Bulk Atrophy in b/l LE Tone Concern for hypotonia ? Proximal Upper Distal Upper Proximal Lower Distal Lower Right 5/5 5/5 0/5 0/5 Left 5/5 5/5 0/5 0/5 ?? Muscle Stretch Reflexes ?? BI TRI BR PAT ACH TOES Right 1 1 1 1 0 Up Left 1 1 1 0 0 Up ?? Sensory Light Touch Light touch intact to T10, Alto sensation in ankle when I grabbed it to test babinski. Noxious Stimuli Intact to ~T10 can feel very noxious stimuli below T12 as something sharp ?? Urine and bowel incontinence ?? Cerebellar ?? FNF Right Intact Left Intact ?? Gait Unable to walk ?? Labs: -RPR negative -JUANY: pending -Leukocytosis with Ganglioside ab panel: pending -CHIEF MEDICAL TECHNOLOGIST demyelinating: in process -NMO/AQP4 in process Labs: Recent Labs Component Name 09/30/22 0018 09/29/22 0133 09/27/222119 WBC 10.9* 14.2* 19.6* RBC 4.02* 4.07* 4.49 HGB 11.9* 12.3 13.3 HCT 36.5 35.7 39.9 Recent Labs Component Name 09/30/22 0018 09/29/22 0133 09/28/22 0159 09/27/222119 NA 139 137 - 135* CL 106 104 - 102 CO2 21* 24 - 25 BUN 18 20 - 22 CREATININE 0.75 0.65* 0.70* 0.74 CALCIUM 8.9 9.0 - 9.0 No results for input(s): MG in the last 83207 hours. No results for input(s): PHOS in the last 62727 hours. No results for input(s): PT, INR, PTT in the last 64619 hours. No results for input(s): A1C in the last 22539 hours. No results for input(s): CHOL, HDL, LDLCALC, TRIG, CHOLHDL in the last 85553 hours. No results for input(s): TSH in the last 84990 hours. Invalid input(s): FT4, TOTT3 No results for input(s): CKMB, CKTOTAL, CKMB, TROPONINI, BNP in the last 70565 hours. Imaging: MRI LUMBAR SPINE WWO CONTRAST: 09/29/22 IMPRESSION: ?? 1.Multilevel degenerative disc and joint disease as detailed level by level above. 2.Faint enhancement of the cauda equina nerve roots likely within normal Limits. MRI BRAIN CERVICAL SPINE WWO CONTRAST: 09/28/22 IMPRESSION: ?? 1.Abnormal FLAIR signal and abnormal enhancement involving the right superior cerebellar peduncle. Findings are nonspecific however concerning for progressive supranuclear palsy, (PSP). Other differential considerations are not excluded. 2.Minimal foci of patchy abnormal signal and enhancement predominantly in the posterior and lateral aspects of the cervical cord at the level of C4 and C6. Findings are nonspecific and could be seen in the setting PSP or represent sequela of patient's prior transverse myelitis. Clinical correlation is recommended. Please correlate with prior imaging if available. 3.Minimal punctate enhancement around the thoracic cord likely vascular in nature. Otherwise, no abnormal enhancement in the thoracic spine. 4.Multilevel degenerative disc and joint disease as outlined above. 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 The patients facial numbness has resolved. On Neurologic examination the patient presents with bilaterally LE areflexia, hypotonia, and atrophy, which are consistent with lower motor neuron etiology.This is consistent with the patients history of spondylosis and nerve impingement at L4-L5. The patients babinski was positive bilaterally, which is concerning for upper motor neuron process. On current admission the MRI WWO contrast does not indicate inflammation of the cervical or thoracic spine;MRI Lumbar will be obtained and [facility] ?? Differential includes workup for infectious (COVID-19) vs post infectious process vs radiculomyelopathy vs exacerbation of transverse myelitis. 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 Will need further workup. ?? Plan #Transverse Myelitis #B/L leg weakness and numbness #Recurrence of b/l arm numbness - Second day of IVIG 1gm/kg, day 1/2 completed. - Obtain MRI WWO contrast Lumbar - Obtaining CSD1 (NMO and MOG ) antibodies - GB Antibodies -Nerve conduction test (H and F reflex tests) - Discuss antidepressant use with patient, patient denied -CHIEF MEDICAL TECHNOLOGIST demyelinating pending -Patient consented for LP. Previous LP from OSH had increased WBC, previous CSF VDRL, HSV PCR were negative. -JUANY blood -RPR was negative -Lyme disease pending -[facility] ?? #UTI -patient has a history of UTI 2/2 to catheter usage. Last infection at [facility] was positive for Pseudomonas and was treated with a 6 day course of Cefepime -Patient has 100+ cells in UA, + nitrates and leukocyte esterases -Treat patient for UTI with Ciprofloxacin -UDS pending -Urine Culture Pending #Leukocytosis Downward trending, 10.2 from 14.6 the day prior #Constipation -continue home Miralax daily #GERD - continue home protonix 40mg daily ?? #Insomnia - continue zolpidem 5mg qHs ?? Case findings discussed with Dr. Gonzalez, Attending physician. Mary Paula Medical Student TICKET DISTRIBUTOR * Ramon Gonzalez MD - 09/29/2022 11:04 AM CST Neurology Service Progress Note Patient: Binu Justin Age: [age] year old Admission Date and Time: 09/27/2022 Chief Complaint: Transverse Myelitis with new numbness in arms and face History of Presenting Illness: Binu Justin is a 61 year old male with a PMHx of low back pain, sacroiliitis, heavy smoker, alcohol abuse and newly dx of cervical and lumbar transverse myelitis(5 weeks ago) who presents as a transfer [facility] for worsening new numbness and tingling in his face and arms. Patient with bilateral foot weakness 5 weeks ago, 5 days after COVID infection, and presented to OSH who diagnosed COVID19 infection and sent patient home. Following this, patient with at least 2 recurrent OSH admissions for progressive weakness and decreased sensation with steroids (Salumederol IV) given with each hospitalization. Patient transferred due to increase and worsening of his symtpoms Overnight: No acute events overnight. Patient has developed some minor numbness and sensation in his legs. Cannot move legs at all. No movement. No other systemic complains Objective: BP 105/67 Pulse 90 Temp 98.2 ??F (36.8 ??C) (Oral) Resp 20 Ht 5' 10 (1.778 m) Wt 156 lb (70.8 kg) SpO2 94% Temp (30hrs) Max:98.3 ??F (36.8 ??C) Body mass index is 22.38 kg/m??. Exam: General: NAD, afebrile, responding to commands, interacting Heent - NCAT, MMM, anicteric Neck - No JVD, LAD, trachea midline CV - RRR for age, normal s1/s2, no m/r/g Pulm - CTAB, no w/r/r Abd - BS+, soft, NTND Cortical Function Mental Status Awake, alert, follows commands Orientation Person, place, time, and situation Language Fluency intact, comprehension intact, repetition intact Visual Hayden Intact bilaterally to confrontation Neglect No visual neglect noted, no tactile neglect noted Cranial Nerves II Pupils 3 mm and bilaterally reactive to light. Fundoscopic exam not performed. VIII Hearing is intact bilaterally to finger rub. III/IV/ Extraocular muscles intact. No diplopia, ptosis, nystagmus or convergence abnormalities noted. IX/X Palate elevated symmetrically without phonation abnormalities noted. V Facial sensation symmetric to light touch and intact bilaterally. Corneal reflex not examined. XIHead turning and shoulder shrug are intact. VII No facial palsy noted. XII Tongue is midline with normal movements and no atrophy noted. Motor Function Movement No abnormalities noted Bulk Decrease on legs Tone Concern for hypotonia Proximal Upper Distal Upper Proximal Lower Distal Lower Right 5/5 5/5 0/5 0/5 Left 5/5 5/5 0/5 0/5 Muscle Stretch Reflexes BI TRI BR PAT ACH TOES Right 1 1 1 1 0 Up Left 1 1 1 0 0 Up Sensory Light Touch Light touch intact to T10 Noxious Stimuli Intact to ~T10 can feel very noxious stimuli below T12 as something sharp Urine and bowel incontinence Cerebellar FNF Right Intact Left Intact Gait Unable to walk Labs: Leukocytosis with ganglioside ab panel pending UDS pending UA with U Cx pending collection CHIEF MEDICAL TECHNOLOGIST demyelinating in process NMO/AQP4 in process Neuroimaging: Prelim Read No evidence of large and long segment enhancement. 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 There is tiny intramedullary T2/STIR hyperintensity in the left posterior aspect at C4 level (series 5 image 22) with suspected mild enhancement (series 10 image 22) in the right posterior aspect at C6 level (series 5 image 30) that may represent infectious/inflammatory process. Moderate type II endplate changes at C5 inferior endplate. 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 #Transverse Myelitis Concern pending OSH images #UMN and LMN disease with continued bilateral leg weakness and progression of numbness to face now resolved #Decreased sensation below T10 DDX: transverse myelitis, less likely infectious or autoimmune however noted issues post COVID, less likely NMO due to lesions without ~3 vertebral spaces, less likely ADEM without brain involvement,superimposed lumbar myeloradiculopathy of concern Plan: - Follow up final MRI brain, C-spine and T-spine wwo contrast ; Follow up lumbar MRI final read -EMG with reflexes ordered. -UDS pending -UA with U Cx pending collection -CHIEF MEDICAL TECHNOLOGIST demyelinating in process -NMO/AQP4, Gq1b , CDS1 antibodies in process -Will do an LP. Previous LP from OSH had increased WBC, will re-evaluate CSF for change. Would needCSF VDRL, HSV PCR. Additonally, CSF glucose, cell count, protein, gram stain - Started IVIG today 1gm/kg for 2 days. First dose to be done today. - JUANY blood, RPR serum, Lyme disease serology - Follow up on labwork #Leukocytosis WBC count today 14.2, which has decreased from prior counts - Patient has been afebrile. - Will continue to monitor #Constipation - continue home Miralax daily #GERD - continue home protonix 40mg daily #Insomnia - continue zolpidem 5mg qHs Patient to be seen and discussed with Attending Physician, Dr. Carlos Man MD Neuro PGY2 I have seen and examined the patient with the resident and I agree with the findings and plan of care as documented by the resident. Date of Service: 09/29/22 History 61-year-old WM. About 5 weeks ago he developed Covid] did not receive antiviral drugs] and about 5 days after this developed sudden weakness of his lower extremities with loss of sensation and neurogenic bladder. He was evaluated in OSH and diagnosed to have acute transverse myelitis and underwent an MRI and also LP CSF and was treated with high-dose steroids [and he says antibiotics] for5 days. He says that he never fully recovered from this weakness but had ups and downs and receiveda second dose of steroid treatment and was discharged to rehab. He states that he continues to havesevere weakness in his legs and recently also developed some paresthesias in his upper extremities but retains strength in the upper extremities. He has no history of genital herpes he continues to have daily bowel movements. Examination. Awake alert oriented x3 but is emotional and tearful because of the leg weakness that has not improved. No cranial nerve palsies. Upper extremities have normal muscle strength, tone but deep tendon reflexes are not elicited in the upper extremities. Lower extremities there is muscle wasting in his quadriceps and calf muscles, hypo-Prolia muscle strength is 0/5 but has an occasional flicker of movement in the knee flexors. Right knee jerk is+ and left knee jerk is++. Ankle jerks areabsent. Plantar reflex shows bilateral Babinski] extensor] response. He has a sensory level with loss of sensation below T10 to touch pain temperature, joint and position sense. Cremasteric reflex isabsent on both sides. Exam of the thoracolumbar spine is normal. He had repeat brain MRI here yesterday that is unremarkable. MRI of the cervical spine shows some mild disc bulges but no compression of the cervical spinal cord or roots. MRI of the T-spine is normal. Had MRI L spine yesterday that does not show compression of roots or enhancement. CSF report from OSH had 138 cells Lymphocytes and 216 protein normal glucose. Diagnosis. He has clinical signs of a spinal cord lesion segmental level of T10 that came on acutely following a COVID infection. 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 Most likely cause is a sequela of Covid. But will search for other causes. Plan. To review CD of the spinal cord imaging and all reports from OSH. Will repeat LP CSF with all tests including VDRL and DWAYNE. EMG and NCS including H Reflex and F responses for radiculopathy. To do LE and UE. Will send for serum for NMO and MOG antibodies. To check RPR and VDRL in the CSF if that was done at OSH. Check JUANY< ANCA, Lyme serology. Will start a course of IVIG treatment 1 gm/kg/d X 2 days. Discussed benefit and AE with patient andwife and they agree to this Rx. DVT prophylaxis and PT OT. Bladder training with clamping of the indwelling catheter and periodic release. To tart him on an SSRI for depression. Please see resident notes for details Ramon Gonzalez MD Attending Physician, Neurology TICKET DISTRIBUTOR * Abilio Sol MD - 09/28/2022 2:32 PM CDT Family Notification Documentation Contact made: 09/28/2022 2:32 PM Method of communication: In-person Summary of discussion Family called; without further answer by . Will reattempt family communication in future. Sweta [facility]H [facility] PGY3 * Mary Paula - 09/28/2022 12:28 PM CDT Neurology Progress Note Patient: Binu Justin Age: [age] year old Admission Date and Time: 09/27/2022 Chief Complaint: Transverse Myelitis with new numbness in arms and face History of Presenting Illness: Binu Justin is a 61 year old male with a PMHx of low back pain, sacroiliitis, heavy smoker, alcohol abuse and newly dx of cervical and lumbar transverse myelitis(5 weeks ago) who presents as a transfer from [facility] for worsening new numbness and tingling in his face and arms. Awaiting [facility] for specific details. Per patient he had COVID-19 in mid with symptoms of rhinorrhea, congestion, myalgias and fever he quarantined at home for five days and on August 17 or ? he woke up and noticed his feet and ankles were numb and weak. The weakness and numbness continued progressing up his legs over the next 24 hours and he was unable to feel himself void or have BM. He went to [facility] where imaging and CSF obtained and found to have transverse in the L spine. He was given 5 days of high dose steroids and discharged to rehab. A week later while at rehab he became altered and began having numbness in his arms and over his abdomen and was readmitted to [facility] where MRI C spine foundcervical transverse myelitis. He was given another 3 days of high dose steroids and discharged to rehab again. Per facility no CSF infectious or autoimmune has panel has returned positive. Patient states that in last week he felt that some of his sensory was returning on the back of his thighs. He could tell that when he is trying to move his legs he feels his thighs ava. Also the numbness and tingling in his arms had resolved. However today he was in PT when he began noticing his numbness in b/l hands up to his shoulders andnumbness around his mouth, this made him very nervous that inflammation was progressing in his spine. He was transferred to [facility] for further evaluation. On arrival patient is very tearful about his current condition, he used to be very independent and is very upset he cannot walk, has a urinary catheter and is reliant on others to bath him and clean him. Patient at this time denies weakness in arms, SOB, neck weakness, facial droop, dysphagia, dysarthria, or blurry vision. Past Medical History No history on file. Past Medical History: Diagnosis Date ??? Alcohol abuse ??? Arthritic-like pain ??? Low back pain Past Surgical History: Procedure Laterality Date ??? Appendectomy ??? HX OF HAND SURGERY Allergies No Known Allergies Family History Family History Problem Relation Name Age of Onset ??? Arthritis - Osteo Mother Status: ??? 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 He smoked a pack/d for 40 years, stopped July 2022. He drinks a fifth of [employer] a week, until July 2022. Lives with for 40 years in [place] and have three children. Objective: BP 99/81 Pulse 101 Temp 98.3 ??F (36.8 ??C) (Temporal) Resp 13 Ht 5' 10 (1.778 m) Wt 156 lb (70.8 kg) SpO2 91% Temp (30hrs) Max:98.3 ??F (36.8 ??C) Body mass index is 22.38 kg/m??. Exam: General: Con - NAD, afebrile Heent - NCAT, MMM, anicteric Neck - No JVD, LAD, trachea midline CV - RRR for age, normal s1/s2, no m/r/g Pulm - CTAB, no w/r/r Abd - BS+, soft, NTND Ext: No c/c/e, 2+ dpp Cortical Function Mental Status Awake, alert, follows commands Orientation Person, place, time, and situation Language Fluency intact, comprehension intact, repetition intact Visual Hayden Intact bilaterally to confrontation Neglect No visual neglect noted, no tactile neglect noted Cranial Nerves II Pupils 3 mm and bilaterally reactive to light. Fundoscopic exam not performed. VIII Hearing is intact bilaterally to finger rub. III/IV/ Extraocular muscles intact. No diplopia, ptosis, nystagmus or convergence abnormalities noted. IX/X Palate elevated symmetrically without phonation abnormalities noted. V Facial sensation symmetric to light touch and intact bilaterally. Corneal reflex not examined. XIHead turning and shoulder shrug are intact. VII No facial palsy noted. XII Tongue is midline with normal movements and no atrophy noted. Motor Function Movement No movement in b/l LE, some muscle contraction in the thighs of the right leg Bulk Decrease on legs; atrophy b/l LE Tone Hypotonia in b/l LE Proximal Upper Distal Upper Proximal Lower Distal Lower Right 5/5 5/5 0/5 0/5 Left 5/5 5/5 0/5 0/5 Muscle Stretch Reflexes BI TRI BR PAT ACH TOES Right 1 1 1 0 0 Up Left 1 1 1 0 0 Up Sensory Light Touch Light touch intact to ~T10 Noxious Stimuli Intact to ~T10 can feel very noxious stimuli below T12 as something sharp; felt at L2-L3 and S2 Urine and bowel incontinence Cerebellar FNF Right Intact Left Intact Gait Unable to walk Labs: Recent Results (from the past 24 hour(s)) CBC W AUTO DIFFERENTIAL Collection Time: 09/27/22 9:20 PM Result Value Ref Range WBC 19.6 (H) 3.5 - 10.5 10??3/uL RBC 4.49 4.30 - 5.70 10??6/uL Hemoglobin 13.3 12.0 - 17.6 g/dL Hematocrit 39.9 35.2 - 51.7 % MCV 88.9 80.7 - 98.3 fL MCH 29.6 26.7 - 34.0 pg MCHC 33.3 30.8 - 35.9 g/dL RDW-SD 45.1 36.0 - 50.0 fL RDW-CV 14.1 11.2 - 14.8 % Platelet Count 299 150 - 400 10??3/uL MPV 9.5 9.4 - 12.9 fL nRBC Absolute 0.00 0 10??3/uL nRBC Auto 0.0 0 /100 WBC Neutrophils % 75.5 (H) 35.0 - 70.0 % Lymphocytes % 13.3 (L) 20.0 - 43.0 % Monocytes % 6.9 5.0 - 13.0 % Eosinophils % 0.5 0.0 - 6.0 % Basophil % 0.4 0.0 - 2.0 % Neutrophils Absolute 14.79 (H) 1.60 - 7.00 10??3/uL Lymphocyte Absolute 2.61 1.10 - 3.90 10??3/uL Monocytes Absolute 1.35 (H) 0.26 - 1.07 10??3/uL Eosinophils Absolute 0.09 0.00 - 0.47 10??3/uL Basophils Absolute 0.07 0.00 - 0.08 10??3/uL Immature Granulocytes % 3.4 (H) 0.0 - 1.0 % Immature Granulocytes Absolute 0.67 COMPREHENSIVE METABOLIC PANEL Collection Time: 09/27/22 9:20 PM Result Value Ref Range BUN 22 7 - 26 mg/dL Creatinine 0.74 0.71 - 1.16 mg/dL Sodium 135 (L) 136 - 145 mmol/L Potassium 4.0 3.5 - 4.5 mmol/L Chloride 102 98 - 107 mmol/L CO2 25 22 - 29 mmol/L Glucose 110 70 - 115 mg/dL Calcium 9.0 8.4 - 10.2 mg/dL Protein Total 6.7 6.0 - 8.3 g/dL Albumin 3.4 3.4 - 5.0 g/dL Bilirubin Total 0.3 0.2 - 1.2 mg/dL Alkaline Phosphatase 85 40 - 150 U/L ALT 98 (H) 5 - 55 U/L AST 29 5 - 34 U/L Anion Gap 12 8 - 18 BUN/Creatinine Ratio 30 (H) 7 - 23 Osmolality Calculated 284 270 - 300 mOsm/kg Albumin/Globulin Ratio 1.0 (L) 1.1 - 2.3 eGFR by CKD-EPI >90 >=90 mL/min/1.73 m2 CREATININE BLOOD Collection Time: 09/28/22 1:59 AM Result Value Ref Range Creatinine 0.70 (L) 0.71 - 1.16 mg/dL eGFR by CKD-EPI >90 >=90 mL/min/1.73 m2 PLATELET COUNT AUTO Collection Time: 09/28/22 1:59 AM Result Value Ref Range Platelet Count 249 150 - 400 10??3/uL Neuroimaging: MRI Brain WWO Contrast: pending MRI Thoracic Spine WWO Contrast:pending MRI Cervical Spine WWO Contrast: pending Assessment and Plan: Binu Justin is a 61 year old male with 5 weeks of b/l leg numbness and weakness, bowel and bladder incontinence secondary to lumbar and cervical transverse myelitis post COVID infection who presents as a transfer from [facility] for worsening numbness and tingling in his face and arms. The patients facial numbness has resolved. On Neurologic examination the patient presents with bilaterally LE areflexia, hypotonia, and atrophy, which are consistent with lower motor neuron etiology.This is consistent with the patients history of spondylosis and nerve impingement at L4-L5. The patients babinski was positive bilaterally, which is concerning for upper motor neuron process. On current admission the MRI WWO contrast does not indicate inflammation of the cervical or thoracic spine;MRI Lumbar will be obtained and compared with imaging from [facility]. Differential includes workup for infectious (COVID-19) vs post infectious process vs radiculomyelopathy vs exacerbation of transverse myelitis. 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 Will need further workup. #Transverse Myelitis #B/L leg weakness and numbness #Recurrence of b/l arm numbness - Awaiting [facility] records for specific CSF studies obtained, to further evaluate if other studies needed - Thus far CSF studies pending or negative - Two rounds of high dose steroids previously - Obtain MRI WWO contrast Lumbar - Obtaining CSD1 (NMO and MOG ) antibodies - GB Antibodies -Nerve conduction test (H and F reflex tests) -Start IVIG; following MRI WWO Contrast Lumbar spine - Discuss antidepressant use with patient -UA for elevated white count (19.6) Discussed with Attending Physician, Carlos Paula Medical Student * Monalisa Turner, OT - 09/28/2022 10:32 AM CDT [facility] Physical Medicine and Rehabilitation Occupational Therapy Initial Evaluation Note Patient: Binu [facility] Record Number: [id number] Date of : 1960 Age: [age] year old PPE worn by staff: gloves;mask - procedural Discharge Recommendation: Patient will benefit from home health OT. In addition to the 1:1 evaluation of the patient, additional eval time was spent completing the chart review prior to the assessment, completing the multidisciplinary plan of care and education plan post evaluation and communicating results of the eval to other treatment team members. Nurse and Physical Therapy (co-evaluation in ED) contacted regarding patient status and/or discharge plan. Physician Orders: Evaluation and Treat Activity Level: up ad brenda DIAGNOSIS: Patient Active Problem List: Acute transverse myelitis (CMS/HCC) Transverse myelitis (CMS/HCC) Past Medical History: Diagnosis Date ??? Alcohol abuse ??? Arthritic-like pain ??? Low back pain SUBJECTIVE: Subjective: Patient reports he was at Rehab but getting close to going home. 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 PATIENT GOALS: Patient's Primary Concern: Wants to be able to urinate on his own. Home Situation: Type of Residence: Private Residence Lives with:: Spouse;Son Ramp: Yes Handrails: None Home Structure: One Story Primary Bedroom: First Floor Primary Bathroom: First Floor Equipment at Home: Commode-Bedside;Hospital Bed;Wheelchair-Standard;Sliding Board Prior Level of Functioning: Mobility: Non-Ambulatory;Transfers Only (had been doing sliding board transfers at rehab) Have Help at Home?: Yes, there is help at home now Who assists you at home?: Friends/Family Pain Assessment: Pain Rating Score #: 0 Follow-up for pain: No follow-up for pain indicated and patient agreed to proceed with treatment OBJECTIVE: At start of therapy session, patient found on stretcher General Appearance: supine in NAD LDA: IV's: Peripheral line and Catheter Edema: No edema noted Vitals: (*Assess the 3 levels of oxygen saturations both for room air and 02 unless rest on room air is 88% or less). Rest BP: 99/81 HR: 97 Sp02 Sp02 95% RA Ex/Gait/Activity Without 02 BP: HR: Sp02 Room Air Ex/Gait/Activity With 02 BP: HR: Sp02 L O2 Post Activity BP: HR: Sp02 Sp02 L O2 Room Air Observations: Denies dizziness/dyspnea Mental Status/Cognition: Level of Consciousness-Adult: Alert Orientation Level: Oriented X4 Cognition: Follows Commands-Consistent;Attention/concentration-normal for age Following Commands: Follows all commands and directions without difficulty Safety Judgement: Good awareness of safety precautions Awareness of Errors: Good awareness of errors made UE ROM: RUE: AROM WFL LUE: AROM WFL Strength: RUE: WNL LUE: WNL UE Tone RUE: no abnormal tone noted LUE: no abnormal tone noted Coordination: intact serial opposition for bilateral hands UE Proprioception RUE: not tested LUE: not tested UE Sensation RUE: intact LUE: intact Mobility: A gait belt and non-slip socks were used for all out of bed activity this date. Bed Mobility: Rolling: Stand By Assist (with rail) Supine to Sit: Stand By Assist (using rail) with HOB in semi-fowlers position Sit to Supine: Stand By Assist Transfers: Sit to Stand: (N/A) Performed lateral scooting to head of stretcher with SBA this date. No chair or slide board available at this time to attempt transfer. Balance: Sitting - Static: Fair +;Without Upper Extremity Support Sitting - Dynamic: Fair -;With One Upper Extremity Support Activities of Daily Living Lower Body Dressing: Minimal Assistance (adjust socks in supine) Splint Issued/Checked: none ACTIVITY TOLERANCE: Patient's activity tolerance: fair TREATMENT / EDUCATION / INTERVENTIONS: While performing OT, Patient was instructed in:functional mobility training, self-care training, safety awareness/fall precautions , home exercise program, discharge planning, use of call light Presented to patient who demonstrates Good understanding of instructions given. INFORMED CONSENT TO TREATMENT: Plan of care including recommended therapy, goals and frequency, discussed with patient who understands and agrees to proceed. ASSESSMENT: Functional performance limited due to: limited activities of daily living, decreased functional mobility, decreased functional balance and decreased endurance and activity tolerance. Patient continues to benefit from skilled Occupational Therapy to achieve the following functional goals. Equipment I ssued: gait belt. Short Term Goals: Goal Formation With patient Patient will perform lower extremity dressing with modified independence Patient will transfer to bedside commode with modified independence Patient will perform supine to/from sit independently Usp Goal(s): Patient to be independent with functional mobility and self-care and should be able to safely discharge to prior level of care. Plan: Plan: ADL training Adaptive equipment training Functional transfer training Functional balance training Endurance training Bed mobility training Safety awareness Home exercise program training If patient is discharged from the facility, this note serves as a discharge summary if further occupational therapy visits did not occur. Refer to filed flowsheet for further details. Following therapy session, patient left on stretcher, with call light within reach, with therapy cues visible on white board. * Raisa Pedroza, PT - 09/28/2022 10:31 AM CDT [facility] Physical Medicine and Rehabilitation Physical Therapy Initial Evaluation Note Patient: Binu Justin Med Record Number: [id number] Date of : 1960 Age: [age] year old PPE worn by staff: gloves;mask - procedural PPE worn by patient: socks - clean;gown - patient, clean Tech: co eval with OT this date due to unknown level of assist Discharge Recommendation: Patient should be able to return home with family assist and home health PT when medically cleared by physician team. Therapy will continue to treat patient while in hospital. See current amount of assist needed below. In addition to the 1:1 evaluation of the patient, additional eval time was spent completing the chart review prior to the assessment, completing the multidisciplinary plan of care and education plan post evaluation and communicating results of the eval to other treatment team members. Patient is not ambulatory at this time. Nurse and Occupational Therapy contacted regarding patient status and/or discharge plan. Physician Orders: Evaluation and Treat PRECAUTIONS: Activity Level: Up ad brenda (ambulate) DIAGNOSIS: Patient Active Problem List: Acute transverse myelitis (CMS/HCC) Transverse myelitis (CMS/HCC) Past Medical History: Diagnosis Date ??? Alcohol abuse ??? Arthritic-like pain ??? Low back pain SUBJECTIVE: Subjective: Patient states he has been in and out of rehab; has equipment at home; says he was transferring with/without sliding board and plans to go home at W/C level mobility PATIENT GOALS: Patient's Primary Concern: to go home Home Situation: Type of Residence: Private Residence Lives with:: Spouse;Son Ramp: Yes Handrails: None Home Structure: One Story Primary Bedroom: First Floor Primary Bathroom: First Floor Equipment at Home: Commode-Bedside;Hospital Bed;Wheelchair-Standard;Sliding Board Prior Level of Functioning: Mobility: Non-Ambulatory;Transfers Only (had been doing sliding board transfers at rehab) Have Help at Home?: Yes, there is help at home now ( has been through caregiver training at rehab) Who assists you at home?: Friends/Family Oxygen at Home: No Who manages medications?: self Pain Assessment: Pain Rating Score #: 0 Follow-up for pain: No follow-up for pain indicated and patient agreed to proceed with treatment OBJECTIVE: At start of therapy session, patient found on stretcher and with no alarm. General Appearance: adult male on stretcher, no distress noted LDAs: IV's: Peripheral line and Catheter Edema: no edema noted in bilateral lower extremities Vitals: (*Assess the 3 levels of oxygen saturations both for room air and 02 unless rest on room air is 88% or less). Rest BP: 99/81 HR: 97 Sp02 Sp02 95% Room Air L O2 Observations: no distress noted during activity Mental Status/Cognition: Level of Consciousness-Adult: Alert Orientation Level: Oriented X4 Cognition: Follows Commands-Consistent;Processing-Appropriate;Attention/concentration-normal for age;Judgement-appropriate;Safety awareness-appropriate ROM: RLE: PROM WFL LLE: PROM WFL Strength: RLE:no active movement in RLE Trace quadriceps noted LLE: No active movement in LLE Tone: RLE: hypotonic LLE: hypotonic Coordination: RLE: no active movement LLE: no active movement Sensation: RLE: diminished light touch sensation LLE: diminished light touch sensation Mobility: A gait belt and non-slip socks were used for all out of bed activity this date. Bed Mobility: Rolling: Stand By Assist (with rail) Supine to Sit: Stand By Assist (using rail) with HOB in semi-fowlers position Sit to Supine: Stand By Assist Transfers: Patient completes lateral scoot to left toward HOB with SBA; transfer deferred this date due to no appropriate chair in room for transfer. (has been completing sliding board transfers at rehab) Gait: Comments: nonambulatory Balance: Sitting - Static: Fair +;Without Upper Extremity Support Sitting - Dynamic: Fair -;With One Upper Extremity Support ACTIVITY TOLERANCE: Patient's activity tolerance: good TREATMENT/INTERVENTIONS: evaluation, ROM BLE, bed mobility training and balance activities EDUCATION: While performing PT, Patient was instructed in:functional mobility training, safety awareness/fall precautions , discharge planning, use of call light Presented to patient who demonstrates Good understanding of instructions given. INFORMED CONSENT TO TREATMENT: Plan of care including recommended therapy, goals and frequency, discussed with patient who understands and agrees to proceed. ASSESSMENT: Patient would benefit from additional Physical Therapy sessions to achieve the following functionalgoals to enhance independence. Short Term Goals: Goal Formation With patient Patient will perform bed mobility with modified independence Patient will transfer bed to/from chair with stand by assist Patient will perform home exercise program independently Patient will maintain dynamic sitting balance with single UE support and SBA Usp Goal(s): Patient to be baseline with functional mobility and self-care and should discharge to prior level of care. Equipment Issued: none Plan: Plan: Transfer training Bed mobility training Balance training Safety awareness Home exercise program training If patient is discharged from the facility, this note serves as a discharge summary if further physical therapy visits did not occur. Refer to filed flowsheet for further details. Following therapy session, patient left on stretcher, with call light within reach, with RN, Asmita aware, with therapy cues visible on white board. * Ramon Gonzalez MD - 09/28/2022 7:48 AM CDT Neurology Service Progress Note Patient: Binu Justin Age: [age] year old Admission Date and Time: 09/27/2022 Chief Complaint: Transverse Myelitis with new numbness in arms and face History of Presenting Illness: Binu Justin is a 61 year old male with a PMHx of low back pain, sacroiliitis, heavy smoker, alcohol abuse and newly dx of cervical and lumbar transverse myelitis(5 weeks ago) who presents as a transfer [facility] for worsening new numbness and tingling in his face and arms. [facility]waiting [facility] for specific details. Patient with bilateral foot weakness 5 weeks ago and presented to OSH who diagnosed COVID19 infection and sent patient home. Following this, patient with at least 2 recurrent OSH admissions for progressive weakness and decreased sensation with steroids given with each hospitalization. Currently, patient is unable to walk, with sensation to T10 anteriorly. Repeat final imaging pending. LP studies not reviewed from OSH. 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 Exam: General: NAD, afebrile, responding to commands, interacting Heent - NCAT, MMM, anicteric Neck - No JVD, LAD, trachea midline CV - RRR for age, normal s1/s2, no m/r/g Pulm - CTAB, no w/r/r Abd - BS+, soft, NTND Cortical Function Mental Status Awake, alert, follows commands Orientation Person, place, time, and situation Language Fluency intact, comprehension intact, repetition intact Visual Hayden Intact bilaterally to confrontation Neglect No visual neglect noted, no tactile neglect noted Cranial Nerves II Pupils 3 mm and bilaterally reactive to light. Fundoscopic exam not performed. VIII Hearing is intact bilaterally to finger rub. III/IV/ Extraocular muscles intact. No diplopia, ptosis, nystagmus or convergence abnormalities noted. IX/X Palate elevated symmetrically without phonation abnormalities noted. V Facial sensation symmetric to light touch and intact bilaterally. Corneal reflex not examined. XIHead turning and shoulder shrug are intact. VII No facial palsy noted. XII Tongue is midline with normal movements and no atrophy noted. Motor Function Movement No abnormalities noted Bulk Decrease on legs Tone Concern for hypotonia Proximal Upper Distal Upper Proximal Lower Distal Lower Right 5/5 5/5 0/5 0-1/5 Left 5/5 5/5 0/5 0-1/5 Muscle Stretch Reflexes BI TRI BR PAT ACH TOES Right 1 1 1 1 0 Up Left 1 1 1 0 0 Up Sensory Light Touch Light touch intact to T10 Noxious Stimuli Intact to ~T10 can feel very noxious stimuli below T12 as something sharp Urine and bowel incontinence Cerebellar FNF Right Intact Left Intact Gait Unable to walk Labs: Leukocytosis with ganglioside ab panel pending UDS pending UA with U Cx pending collection CHIEF MEDICAL TECHNOLOGIST demyelinating in process NMO/AQP4 in process Neuroimaging: Prelim Read No evidence of large and long segment enhancement. 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 There is tiny intramedullary T2/STIR hyperintensity in the left posterior aspect at C4 level (series 5 image 22) with suspected mild enhancement (series 10 image 22) in the right posterior aspect at C6 level (series 5 image 30) that may represent infectious/inflammatory process. Moderate type II endplate changes at C5 inferior endplate. Lumbar spine imaging ordered EMG with reflexes ordered Assessment and Plan: Binu Justin is a 61 year old male with 5 weeks of b/l leg numbness and weakness, bowel and bladder incontinence secondary to lumbar and cervical transverse myelitis post COVID infection who presents as a transfer from [facility] for worsening numbness and tingling in his face and arms. At this time General Neurology will admit patient for further evaluation. #Transverse Myelitis Concern pending OSH images #UMN and LMN disease with continued bilateral leg weakness and progression of numbness to face now resolved #Decreased sensation below T10 DDX: transverse myelitis, less likely infectious or autoimmune however noted issues post COVID, less likely NMO due to lesions without ~3 vertebral spaces, less likely ADEM without brain involvement,superimposed lumbar myeloradiculopathy of concern - Awaiting [facility] records for specific CSF studies obtained, to further evaluate if other studies needed - Thus far CSF studies pending or negative , pending OSH records - Two rounds of high dose steroids previously Plan: - Follow up final MRI brain, C-spine and T-spine wwo contrast ; Follow up lumbar MRI -EMG with reflexes -UDS pending -UA with U Cx pending collection -CHIEF MEDICAL TECHNOLOGIST demyelinating in process -NMO/AQP4 in process -Consider LP/IVIG in future #Leukocytosis -follow up infectious workup and consider blood culture need #Constipation - continue home Miralax daily #GERD - continue home protonix 40mg daily #Insomnia - continue zolpidem 5mg qHs Patient to be seen and discussed with Attending Physician, Carlos Sol MD U IM PGY3 I have seen and examined the patient with the resident and I agree with the findings and plan of care as documented by the resident. Date of Service: 09/28/2022 History 61-year-old WM. About 5 weeks ago he developed Covid] did not receive antiviral drugs] and about 5 days after this developed sudden weakness of his lower extremities with loss of sensation and neurogenic bladder. He was evaluated in OSH and diagnosed to have acute transverse myelitis and underwent an MRI and also LP CSF and was treated with high-dose steroids [and he says antibiotics] for5 days. He says that he never fully recovered from this weakness but had ups and downs and receiveda second dose of steroid treatment and was discharged to rehab. He states that he continues to havesevere weakness in his legs and recently also developed some paresthesias in his upper extremities but retains strength in the upper extremities. He has no history of genital herpes he continues to have daily bowel movements. Examination. Awake alert oriented x3 but is emotional and tearful because of the leg weakness that has not improved. No cranial nerve palsies. Upper extremities have normal muscle strength, tone but deep tendon reflexes are not elicited in the upper extremities. Lower extremities there is muscle wasting in his quadriceps and calf muscles, hypo-Prolia muscle strength is 0/5 but has an occasional flicker of movement in the knee flexors. Right knee jerk is+ and left knee jerk is++. Ankle jerks areabsent. Plantar reflex shows bilateral Babinski] extensor] response. He has a sensory level with loss of sensation below T10 to touch pain temperature, joint and position sense. Cremasteric reflex isabsent on both sides. Exam of the thoracolumbar spine is normal. He had repeat brain MRI here yesterday that is unremarkable. MRI of the cervical spine shows some mild disc bulges but no compression of the cervical spinal cord or roots. MRI of the T-spine is normal. Diagnosis. He has clinical signs of a spinal cord lesion segmental level of T10 that came on acutely following a COVID infection. 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 Plan. To trace the spinal cord imaging and all reports from OSH. Will do MRI lumbar spine with and without contrast. Will do EMG and nerve conduction studies including H-reflex and F response and look for evidence of a demyelination. May repeat LP CSF. If not already sent will send for serum for NMO and MOG antibodies. To check RPR and VDRL in the CSF if that was done at OSH. Will consider a course of IVIG treatment depending on results. DVT prophylaxis and PT OT. Bladder training with clamping of the indwelling catheter and periodic release. May start him on an SSRI for depression. Please see resident notes for details Ramon Gonzalez MD Attending Physician, Neurology documented in this encounter H&P Notes * Ramon Gonzalez MD - 09/27/2022 8:57 PM CDT Neurology History & Physical Patient: Binu Justin Age: [age] year old Admission Date and Time: 09/27/2022 Chief Complaint: Transverse Myelitis with new numbness in arms and face History of Presenting Illness: Binu Justin is a 61 year old male with a PMHx of low back pain, sacroiliitis, heavy smoker, alcohol abuse and newly dx of cervical and lumbar transverse myelitis(5 weeks ago) who presents as a transfer from [facility] for worsening new numbness and tingling in his face and arms. Awaiting hospital records from [facility] for specific details. Per patient he had COVID-19 in mid with symptoms of rhinorrhea, congestion, myalgias and fever he quarantined at home for five days and on August 17 or ? he woke up and noticed his feet and ankles were numb and weak. The weakness and numbness continued progressing up his legs over the next 24 hours and he was unable to feel himself void or have BM. He went to [facility] where imaging and CSF obtained and found to have transverse in the L spine. He was given 5 days of high dose steroids and discharged to rehab. A week later while at rehab he became altered and began having numbness in his arms and over his abdomen and was readmitted to [facility] where MRI C spine foundcervical transverse myelitis. He was given another 3 days of high dose steroids and discharged to rehab again. Per facility no CSF infectious or autoimmune has panel has returned positive. Patient states that in last week he felt that some of his sensory was returning on the back of his thighs. He could tell that when he is trying to move his legs he feels his thighs ava. Also the numbness and tingling in his arms had resolved. However today he was in PT when he began noticing his numbness in b/l hands up to his shoulders andnumbness around his mouth, this made him very nervous that inflammation was progressing in his spine. He was transferred to [facility] for further evaluation. On arrival patient is very tearful about his current condition, he used to be very independent and is very upset he cannot walk, has a urinary catheter and is reliant on others to bath him and clean him. Patient at this time denies weakness in arms, SOB, neck weakness, facial droop, dysphagia, dysarthria, or blurry vision. Past Medical History No history on file. 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 He smoked a pack/d for 40 years, stopped July 2022. he drinks a fifth of [employer] a week, until July 2022. Lives with for 40 years in [place] and have three children. Review of Systems General - Changes in weight or appetite ENT - Denies dental or swallowing difficulties Cardiac - Denies chest pain or palpitations Pulmonary - Denies shortness of breath, cough, or sputum production Gastrointestinal - Denies abdominal pain or changes in bowel habits Genitourinary - Denies changes in bladder habits Endocrine - Denies heat or cold intolerance Musculoskeletal - Denies myalgias or arthralgias Hematological - Denies history of malignancy or blood abnormalities Neurological - See HPI Objective: BP 131/80 Pulse 92 Temp 98.1 ??F (36.7 ??C) (Temporal) Resp 12 Ht 5' 10 (1.778 m) Wt 156lb (70.8 kg) SpO2 95% Temp (30hrs) Max:98.1 ??F (36.7 ??C) Body mass index is 22.38 kg/m??. Exam: General: Con - NAD, afebrile Heent - NCAT, MMM, anicteric Neck - No JVD, LAD, trachea midline CV - RRR for age, normal s1/s2, no m/r/g Pulm - CTAB, no w/r/r Abd - BS+, soft, NTND Ext: No c/c/e, 2+ dpp Cortical Function Mental Status Awake, alert, follows commands Orientation Person, place, time, and situation Language Fluency intact, comprehension intact, repetition intact Visual Hayden Intact bilaterally to confrontation Neglect No visual neglect noted, no tactile neglect noted Cranial Nerves II Pupils 3 mm and bilaterally reactive to light. Fundoscopic exam not performed. VIII Hearing is intact bilaterally to finger rub. III/IV/ Extraocular muscles intact. No diplopia, ptosis, nystagmus or convergence abnormalities noted. IX/X Palate elevated symmetrically without phonation abnormalities noted. V Facial sensation symmetric to light touch and intact bilaterally. Corneal reflex not examined. XIHead turning and shoulder shrug are intact. VII No facial palsy noted. XII Tongue is midline with normal movements and no atrophy noted. Motor Function Movement No abnormalities noted Bulk Decrease on legs Tone No abnormalities noted Proximal Upper Distal Upper Proximal Lower Distal Lower Right 5/5 5/5 0/5 0/5 Left 5/5 5/5 0/5 0/5 Muscle Stretch Reflexes BI TRI BR PAT ACH TOES Right 1 1 1 0 0 Up Left 1 1 1 0 0 Up Sensory Light Touch Light town intact to ~T12 Noxious Stimuli Intact to ~T12 can feel very noxious stimuli below T12 as something sharp Urine and bowel incontinence Cerebellar FNF Right Intact Left Intact Gait Unable to walk Labs: No results found for this or any previous visit (from the past 24 hour(s)). Neuroimaging: pending Assessment and Plan: Binu Justin is a 61 year old male with 5 weeks of b/l leg numbness and weakness, bowel and bladder incontinence secondary to lumbar and cervical transverse myelitis post COVID infection who presents as a transfer from [facility] for worsening numbness and tingling in his face and arms. At this time General Neurology will admit patient for further evaluation. #Transverse Myelitis #B/L leg weakness and numbness #Recurrence of b/l arm numbness - [facility]wait[facility] records for specific CSF studies obtained, to further evaluate if other studies needed - Thus far CSF studies pending or negative - Two rounds of high dose steroids previously - Obtaining MRI brain, C-spine and T-spine wwo contrast - Obtaining CSD1 (NMO and MOG ) antibodies #Constipation - continue home Miralax daily #GERD - continue home protonix 40mg daily #Insomnia - continue zolpidem 5mg qHs Discussed with Attending Physician, Carlos Robles MD Neurology Resident I have seen and examined the patient with the resident and I agree with the findings and plan of care as documented by the resident. Date of Service: 09/28/2022 History 61-year-old WM. About 5 weeks ago he developed Covid] did not receive antiviral drugs] and about 5 days after this developed sudden weakness of his lower extremities with loss of sensation and neurogenic bladder. He was evaluated in OSH and diagnosed to have acute transverse myelitis and underwent an MRI and also LP CSF and was treated with high-dose steroids [and he says antibiotics] for5 days. He says that he never fully recovered from this weakness but had ups and downs and receiveda second dose of steroid treatment and was discharged to rehab. He states that he continues to havesevere weakness in his legs and recently also developed some paresthesias in his upper extremities but retains strength in the upper extremities. He has no history of genital herpes he continues to have daily bowel movements. Examination. Awake alert oriented x3 but is emotional and tearful because of the leg weakness that has not improved. No cranial nerve palsies. Upper extremities have normal muscle strength, tone but deep tendon reflexes are not elicited in the upper extremities. Lower extremities there is muscle wasting in his quadriceps and calf muscles, hypo-Prolia muscle strength is 0/5 but has an occasional flicker of movement in the knee flexors. Right knee jerk is+ and left knee jerk is++. Ankle jerks areabsent. Plantar reflex shows bilateral Babinski] extensor] response. He has a sensory level with loss of sensation below T10 to touch pain temperature, joint and position sense. Cremasteric reflex isabsent on both sides. Exam of the thoracolumbar spine is normal. He had repeat brain MRI here yesterday that is unremarkable. MRI of the cervical spine shows some mild disc bulges but no compression of the cervical spinal cord or roots. MRI of the T-spine is normal. Diagnosis. He has clinical signs of a spinal cord lesion segmental level of T10 that came on acutely following a COVID infection. 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 Plan. To trace the spinal cord imaging and all reports from OSH. Will do MRI lumbar spine with and without contrast. Will do EMG and nerve conduction studies including H-reflex and F response and look for evidence of a demyelination. May repeat LP CSF. If not already sent will send for serum for NMO and MOG antibodies. To check RPR and VDRL in the CSF if that was done at OSH. Will consider a course of IVIG treatment depending on results. DVT prophylaxis and PT OT. Bladder training with clamping of the indwelling catheter and periodic release. May start him on an SSRI for depression. Please see resident notes for details Ramon Carlos, MD Attending Physician, Neurology documented in this encounter Procedure Notes * Jayla Dutton MD - 09/30/2022 4:57 PM CST LUMBAR PUNCTURE PROCEDURE NOTE Procedure: Lumbar Puncture (LP) Date: 09/30/2022 Indication(s): Diagnostic analysis Procedure Details Indications, benefits, risks, alternatives were explained to the patient or their legal surrogate decision maker and informed consent was obtained according to protocol. Prior to the procedure a timeout was performed. The patient was re-identified according to protocoland the details of the procedure were confirmed with the patient and all members of the procedure team. Immediately prior to the procedure universal precautions were taken per protocol. Patient was prepped and draped in the usual sterile fashion. The patient was placed in the left lateral decubitus position. The L3-L4 space was located using the bilateral iliac crests and other anatomic landmarks. Lidocaine (2%) was used to anesthetize the local area. Patient was also given 2 mg of versed for comfort prior to the procedure. A 20g gauge 3 1/2 inch spinal needle was introduced into the appropriate space. Stylet was removed with appropriate fluid return. The stylet was replaced after fluid collection and the needle was removed with minimal blood loss. A dressing was placed at the site. The patient tolerated the procedure well. Instructed to remain flat and drink sufficient fluids over the nextcouple of hours to reduce the risk of a post-lumbar puncture low pressure headache. Opening Pressure: Not measured Closing Pressure: Not measured Fluid Color: Clear Amount Collected: 16 mL total (4 in tube 1, 4 in tube 2, 4 in tube 3, 4 in tube 4) Labs Ordered and specimen delivered to the lab Jayla Dutton MD Neurology Resident TICKET DISTRIBUTOR * Charito Cardenas MD - 09/30/2022 12:56 PM CST Images from the original note were not included. Electrodiagnostic testing was explained to the patient, and he/she/they were allowed adequate opportunity to ask questions or discuss the EDX testing evaluation. The patient verbalized consent and gave permission for Electrodiagnostic testing. Full Name: Binu Justin Procedure #: [id number] Gender: Male Date of : 1960 Visit Date: 09/30/2022 10:58 Age: 61 Years Examining Physician: Charito Cardenas MD Referring Physician: Ramon Gonzalez MD Reason for Test: Cervical/Lumbar Transverse Myelitis SNC Nerve / Sites Rec. Site Onset Lat Peak Lat PP Amp Segments Distance Velocity Temp. ms ms ??V mm m/s ??C R Radial - Anatomical snuff box (Forearm) Forearm Wrist 1.8 2.5 19.8 Forearm - Wrist 100 55 32.1 Ref. <=2.5 >=15.0 Ref. >=53 L Sural - Ankle (Calf) Calf Ankle NR NR NR Calf - Ankle 140 NR 29.9 Ref. <=4.8 >=5.0 Ref. >=45 R Sural - Ankle (Calf) Calf Ankle NR NR NR Calf - Ankle 140 NR 30.3 Ref. <=4.8 >=5.0 Ref. >=45 Sensory NCS Nerve / Sites Rec. 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 ms ms ??V ??V mm m/s ??C R Superficial peroneal - Ankle Lat leg Ankle NR NR NR NR Lat leg - Ankle 140 NR 33.3 L Superficial peroneal - Ankle Lat leg Ankle NR NR NR NR Lat leg - Ankle 140 NR 30.3 MNC Nerve / Sites Muscle Latency Amplitude Segments Lat Diff Distance Velocity ms mV ms mm m/s L Median - APB Wrist APB 3.4 9.6 Wrist - APB 70 Ref. <=4.5 >=3.0 Ref. Elbow APB 7.8 9.3 Elbow - Wrist 4.4 215 48 Ref. Ref. >=48 R Ulnar - ADM Wrist ADM 2.8 11.3 Wrist - ADM 70 Ref. <=3.6 >=5.0 Ref. B.Elbow ADM 7.2 11.1 B.Elbow - Wrist 4.4 225 51 Ref. Ref. >=48 A.Elbow ADM 9.1 10.7 A.Elbow - B.Elbow 1.9 100 53 Ref. Ref. >=48 A.Elbow - Wrist 6.3 L Peroneal - EDB Ankle EDB 3.9 6.4 Ankle - EDB 80 Ref. <=6.6 >=2.0 Ref. Pop fossa EDB 14.6 5.6 Pop fossa - Ankle 10.7 450 42 Pop fossa - EDB R Peroneal - EDB Ankle EDB 4.4 2.3 Ankle - EDB 80 Ref. <=6.6 >=2.0 Ref. Pop fossa EDB 14.4 2.0 Pop fossa - Ankle 10.0 420 42 L Tibial - AH Ankle AH 5.3 16.8 Ankle - AH 80 Ref. <=6.6 >=2.0 Ref. Pop fossa AH 13.6 11.7 Pop fossa - Ankle 8.3 390 47 Ref. Ref. >=42 R Tibial - AH Ankle AH 4.5 13.2 Ankle - AH 80 Ref. <=6.6 >=2.0 Ref. Pop fossa AH 12.9 10.3 Pop fossa - Ankle 8.4 390 47 Ref. Ref. >=42 R Peroneal - Tib Ant Fib Head Tib Ant 3.2 7.3 Fib Head - Tib Ant 85 Pop fossa Tib Ant 6.3 7.4 Pop fossa - Fib Head 3.2 115 36 L Peroneal - Tib Ant Fib Head Tib Ant 2.4 3.9 Fib Head - Tib Ant Pop fossa Tib Ant 4.7 4.0 Pop fossa - Fib Head 2.3 100 44 F Wave Nerve F Lat Ref. M Lat Min F Lat Ref. Min M Lat ms ms ms ms ms ms L Tibial - AH 53.5 <=58.0 4.5 24.8 <=58.0 4.5 R Tibial - AH 57.6 <=58.0 4.4 25.4 <=58.0 4.4 R Peroneal - EDB NR <=56.0 NR NR <=56.0 NR L Median - APB 30.5 <=31.0 2.8 26.1 <=31.0 2.8 R Ulnar - ADM 30.3 <=32.0 2.8 24.8 <=32.0 2.8 F Wave Nerve F min ms L Peroneal - EDB 56.8 EMG Summary Table Insertional Spontaneous Volitional MUAPs Muscle Nerve Roots Insertional Fib PSW Fasc Duration Amplitude Poly Recruitment R. Tibialis anterior Deep peroneal (Fibular) L4-L5 Normal None None None Gr.Incr. Sl.Incr. Many Reduced R. Gastrocnemius (Lateral head) Tibial S1-S2 Normal None None None Normal Normal None Incomp Act R. Extensor hallucis longus Deep peroneal (Fibular) L5-S1 Normal None None None Sl.Incr. Normal None Reduced R. Vastus lateralis Femoral L2-L4 Normal None None None Did not tolerate Interpretation: The right radial sensory SNAP response is normal. The bilateral sural sensory SNAP responses are absent. The bilateral superficial peroneal sensory SNAP responses are absent. The left median motor CMAP response is normal. The F latency is normal. The right ulnar motor CMAP response is normal. The F latency is normal. The bilateral peroneal motor CMAP responses are normal when recording at the EDB. The CMAP amplitude of the right peroneal motor nerve is >60% decreased when compared with the left side. The bilateral peroneal motor CMAP responses are normal when recording at the TA. The difference in the CMAP amplitudes between the 2 sides is less than 45%. The bilateral tibial motor CMAP responses are normal. The F latency of the right peroneal motor nerve is absent. The F latencies of the bilateral tibial motor and right peroneal motor nerves are normal. The needle EMG exam of few muscles on the right lower limb shows no abnormal spontaneous activity. The motor unit action potentials of the right TA and EHL are large; increased in duration with few polyphasic (per table) and reduced in recruitment consistent with chronic reinnervation. The MUAPs ofthe right GC are normal in shape with reduced activation consistent with central process. Further needle EMG exam was not possible as patient did not tolerate the NEE exam. Conclusions: This study is incomplete due to patient???s intolerance to the needle EMG exam as above. This study is abnormal. 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 The chronicity is determined based on the needle EMG exam findings on the right lower limb. This chronicity is not fully confirmed as needle EMG exam of the contralateral side was not done. Possible etiology for this neuropathy should include- but not be limited to- metabolic and systemic disorders (diabetes, amyloidosis); collagen and autoimmune disorders, endocrinopathy; nutrition and toxic etiologies. Clinical correlation is recommended. Comment: The reduced activation noted on the right GC muscle on the needle EMG exam is likely consistent with central process due to the fact that the shape of the motor unit action potentials MUAPs remained normal. Further NEE of other muscles (including muscles on the contralateral limb is neededto fully assess for this diagnosis. Clinical correlation is recommended. Charito Cardenas MD TICKET DISTRIBUTOR documented in this encounter ED Notes * Salena Gonzalez RN - 09/28/2022 4:52 PM CDT Report called to Marquez TOMAS. Pt up to floor with RN at this time. * Avery Moreno MD - 09/28/2022 3:32 PM CDT Emergency Medicine Attending Transition of Care Note Patient was seen as a team with the resident physician, Dr. Bailey, who also contributed to this note. Patient signed out to me by Dr. Hill at 3:00 PM. Briefly, Binu Justin is a 61 year old male is being evaluated for transverse myelitis that has worsened over the last month. The patient was transferred from [facility]. At this time the patient's condition is Stable. Plan is admitted to Neurology, pending bed availability. No data found. ED Course 3:33 PM Evaluated the patient. They are resting comfortably with no new complaints at this time. 5:25 PM Patient transported to inpatient room at this time. This patient was evaluated during the COVID-19 pandemic. Clinical Impression: 1. Transverse myelitis (CMS/HCC) Disposition: Moved to Neurology floor. By signing my name below, I, Elsie Bautista, attest that this documentation has been prepared under the direction and in the presence of Dr. Moreno. Signed: Celestine Rizvi. Date: 09/28/2022. Time:3:32 PM. I, Dr. Moreno, personally performed the services described in this documentation. All medical record entries made by the scribe were at my direction and in my presence. I have reviewed the chart and agree that the record reflects my personal performance and is accurate and complete. * Asmita Mcbride RN - 09/28/2022 1:31 PM CDT Patient cleaned up after bowel movement and transitioned to a hospital bed. Coccyx was reddened so Meplex applied and patient turned to right side with pillow for support at back and under legs to keep heels off bed. * Salena Gonzalez RN - 09/28/2022 1:31 PM CDT Pt had bowel movement. Pt cleaned up and moved to hospital bed. * Last Hill MD - 09/28/2022 6:59 AM CDT ASSUME CARE NOTE Patient signed out to me by Dr. Thorne at 7:02 AM. Briefly, the patient is being evaluated for transverse myelitis At this time the patient's condition is Stable. The plan at present is admit to Neurology Vitals: 09/30/22201010/01/22 0410 10/01/22 0718 10/01/22 1150 BP: 128/75 105/72 117/84 133/72 Pulse: 72 79 74 82 Resp: 16 16 Temp: 97.7 ??F (36.5 ??C) 98.3 ??F (36.8 ??C) 98.4 ??F (36.9 ??C) 98.4 ??F (36.9 ??C) SpO2: 96% 97% 98% 98% Weight: Height: At this time the following studies are : Labs Reviewed CULTURE URINE - Abnormal; Notable for the following components: Result Value Culture Urine >100,000 CFU/mL Pseudomonas aeruginosa (*) All other components within normal limits CBC W AUTO DIFFERENTIAL - Abnormal; Notable for the following components: WBC 19.6 (*) Neutrophils % 75.5 (*) Lymphocytes % 13.3 (*) Neutrophils Absolute 14.79 (*) Monocytes Absolute 1.35 (*) Immature Granulocytes % 3.4 (*) All other components within normal limits COMPREHENSIVE METABOLIC PANEL - Abnormal; Notable for the following components: Sodium 135 (*) ALT 98 (*) BUN/Creatinine Ratio 30 (*) Albumin/Globulin Ratio 1.0 (*) All other components within normal limits CREATININE BLOOD - Abnormal; Notable for the following components: Creatinine 0.70 (*) All other components within normal limits URINALYSIS REFLEX MICROSCOPIC REFLEX CULTURE - Abnormal; Notable for the following components: Clarity UA Cloudy (*) Protein UA 1+ (*) Blood UA 2+ (*) Nitrite UA Positive (*) Leukocyte Esterase 3+ (*) All other components within normal limits Narrative: BASIC METABOLIC PANEL (CALCIUM TOTAL) - Abnormal; Notable for the following components: Creatinine 0.65 (*) BUN/Creatinine Ratio 31 (*) All other components within normal limits CBC W/O DIFFERENTIAL - Abnormal; Notable for the following components: WBC 14.2 (*) RBC 4.07 (*) MPV 8.9 (*) All other components within normal limits URINE MICROSCOPIC ONLY REFLEX TO CULTURE - Abnormal; Notable for the following components: RBC UA 21-50 (*) WBC UA >100 (*) WBC Clumps Few (*) Bacteria UA 1+ (*) All other components within normal limits Narrative: BASIC METABOLIC PANEL (CALCIUM TOTAL) - Abnormal; Notable for the following components: CO2 21 (*) BUN/Creatinine Ratio 24 (*) All other components within normal limits CBC W/O DIFFERENTIAL - Abnormal; Notable for the following components: WBC 10.9 (*) RBC 4.02 (*) Hemoglobin 11.9 (*) MPV 9.0 (*) All other components within normal limits JUANY BLOOD SCREEN W/REFLEX TITER - Abnormal; Notable for the following components: JUANY IgG Detected (*) All other components within normal limits PROTEIN CSF - Abnormal; Notable for the following components: Protein CSF 143 (*) All other components within normal limits OLIGOCLONAL BANDS CSF+BLOOD PANEL - Abnormal; Notable for the following components: IgG 5384 (*) IgG CSF 12.6 (*) Albumin 2991 (*) Albumin CSF 99 (*) Albumin Index 33.1 (*) IgG Index 0.07 (*) All other components within normal limits BASIC METABOLIC PANEL (CALCIUM TOTAL) - Abnormal; Notable for the following components: BUN/Creatinine Ratio 28 (*) All other components within normal limits CBC W/O DIFFERENTIAL - Abnormal; Notable for the following components: RBC 3.76 (*) Hemoglobin 11.2 (*) Hematocrit 33.7 (*) MPV 9.1 (*) All other components within normal limits HERPES SIMPLEX 1+2 PCR CSF - Normal CULTURE CSF+GRAM STAIN - Normal GRAM STAIN (LAB ORDERED) - Normal PLATELET COUNT AUTO - Normal SYPHILIS ANTIBODY CASCADING REFLEX - Normal IMMUNOGLOBULINS IGG/IGM/IGA PANEL - Normal GLUCOSE CSF - Normal CULTURE CSF+GRAM STAIN (BEAKER) Narrative: The following orders were created for panel order CULTURE CSF+GRAM STAIN (BEAKER). Procedure Abnormality Status --------- ------ CULTURE CSF+GRAM STAIN[[id number]] Normal Final result GRAM STAIN (LAB ORDERED)[[id number]] Normal Final result Please view results for these tests on the individual orders. NMO/AQP4 FACS AB RFLX TITER CHIEF MEDICAL TECHNOLOGIST DEMYELINATING (CDS1) DRUG SCREEN EXPANDED TOXICOLOGY URINE PANEL GANGLIOSIDE (GM1,GD1B,GQ1B) ANTIBODY IGG/IGM JUANY BLOOD SCREEN W/REFLEX TITER LYME DISEASE TOTAL AB W RFLX IMMUNOASSAY Narrative: Performed at: [address] [place] [address] [id number] Tray Setter: Paul Lovett PhD, Phone: [phone] ANCA VASCULITIS PANEL HOLD SPECIMEN CSF CELL COUNT W DIFFERENTIAL CSF Narrative: No reference ranges established for body fluid cell counts. The reference ranges provided are derived from published literature. The test results must be integrated into the clinical context for interpretation. VDRL CSF W REFLEX TO TITER JUANY HEP-2 IGG BY IFA MRI LUMBAR SPINE WWO CONTRAST Final Result PROCEDURE: MRI LUMBAR SPINE WWO CONTRAST, DATE/TIME OF EXAM: 09/29/2022 1:22 AM, LOCATION [facility] INDICATION: G37.3: Transverse myelitis (CMS/HCC) ADDITIONAL CLINICAL [...] is mild to moderate neural foraminal stenosis. IMPRESSION: 1.Multilevel degenerative disc and joint disease as detailed level by level above. 2.Faint enhancement of the cauda equina nerve roots likely within normal limits. > Interpreting Provider: Susana Graf MD on 09/29/2022 8:59 PM MRI CERVICAL SPINE WWO CONT Final Result PROCEDURE: MRI BRAIN WWO CONTRAST, MRI THORACIC SPINE WWO CONT, MRI CERVICAL SPINE WWO CONT, DATE/TIME OF EXAM: 09/28/2022 12:10 AM, LOCATION [facility] INDICATION: G37.3: Transverse myelitis (CMS/HCC) ADDITIONAL CLINICAL INFORMATION: Ordering Provider Reason For Exam: r/o plaque (accession [id number]), transvere myelitis followup (accession [id number]), transvrse myelitis (accession [id number]) Technologist Note: Does the patient have metal implants or stents?->No Additional: None. CONTRAST: GADOBUTROL 1 MMOL/ML IV SSM SO:7 mL EXAMINATION: 1.Magnetic resonance imaging (MRI) of the brain without and with contrast 2.MRI of the cervical and thoracic spine without and with contrast TECHNIQUE: MRI of the brain, cervical and thoracic spine was performed prior to and following the uneventful administration of 7 mL intravenous GADAVIST contrast according to standard protocol. COMPARISON: MRI of the lumbar spine from 03/12/2019. FINDINGS: Brain: No evidence of acute or chronic hemorrhage is identified. No evidence of acute cerebral infarction is seen. There is mild cerebral volume loss with associated ex vacuo ventricular dilatation. No mass effect or midline shift is seen. Abnormal FLAIR signal with subtle edema and abnormal enhancement is identified in the right superior cerebellar peduncle, (series 6, image 15, series 10, image 28, series 15, image 21, and series 16, image 8). No enhancing lesions are otherwise identified. The pituitary height measures approximately 4.3 mm. The corpus callosum and sella appear otherwise grossly unremarkable. The posterior fossa and brainstem appear otherwise grossly unremarkable. The visualized portions of the orbits appear grossly unremarkable. There is mild paranasal sinus disease. Retained secretions in the left maxillary sinus. There is mild fluid signal in the mastoid air cells bilaterally.. Normal flow voids are demonstrated in the carotid arteries and basilar artery. The calvarium appears normal. Cervical spine: Relative straightening of the cervical lordosis. The alignment is otherwise maintained. Vertebral bodies are normal in height without evidence of compression fractures. Heterogenous marrow signal with associated endplate degenerative changes, worst at C4 the C5 and C5-C6, C6-C7. The bone marrow signal appear otherwise grossly unremarkable. The craniocervical junction appears normal. Minimal cord abutment at multiple levels. The spinal cord appears otherwise grossly unremarkable. Minimal patchy enhancement in the posterior and perhaps the lateral aspects of the cervical cord. For reference, minimal patchy enhancement is identified at the level of the inferior aspect of C4, (series 10, image 22).. There is associated faint T2 hyperintensity in the left posterior aspect of the cord, (series 5, image 22). Focal patchy enhancement in the posterior right aspect of the cord with associated subtle T2/STIR hyperintensity are noted at the C6 level, (series 4, image 9, series 9, image 9, and series 5, image 30). There is mild disc height loss at [...] disc bulge. Mild hypertrophy of the ligamentum flavum.. Mild spinal canal stenosis. Mild bilateral facet [...] neural foramina are patent. Thoracic spine: The alignment is normal. Vertebral bodies are normal in height without evidence of compression fractures. Marrow signal intensity is normal. The spinal cord appears normal. Punctate enhancement around the thoracic cord likely vascular in nature. Otherwise, no abnormal enhancement is identified. There is mild degenerative disc disease. No significant central canal stenosis is seen. The facets appear normal. No neural foraminal stenosis is seen. No soft tissue abnormality is identified. IMPRESSION: 1.Abnormal FLAIR signal and abnormal enhancement involving the right superior cerebellar peduncle. Findings are nonspecific however concerning for progressive supranuclear palsy, (PSP). Other differential considerations are not excluded. 2.Minimal foci of patchy abnormal signal and enhancement predominantly in the posterior and lateral aspects of the cervical cord at the level of C4 and C6. Findings are nonspecific and could be seen in the setting PSP or represent sequela of patient's prior transverse myelitis. Clinical correlation is recommended. Please correlate with prior imaging if available. 3.Minimal punctate enhancement around the thoracic cord likely vascular in nature. Otherwise, no abnormal enhancement in the thoracic spine. 4.Multilevel degenerative disc and joint disease as outlined above. > Interpreting Provider: Susana Graf MD on 09/28/2022 2:21 PM MRI THORACIC SPINE WWO CONT Final Result PROCEDURE: MRI BRAIN WWO CONTRAST, MRI THORACIC SPINE WWO CONT, MRI CERVICAL SPINE WWO CONT, DATE/TIME OF EXAM: 09/28/2022 12:10 AM, LOCATION [facility] INDICATION: G37.3: Transverse myelitis (CMS/HCC) ADDITIONAL CLINICAL INFORMATION: Ordering Provider Reason For Exam: r/o plaque (accession [id number]), transvere myelitis followup (accession [id number]), transvrse myelitis (accession [id number]) Technologist Note: Does the patient have metal implants or stents?->No Additional: None. CONTRAST: GADOBUTROL 1 MMOL/ML IV SSM SO:7 mL EXAMINATION: 1.Magnetic resonance imaging (MRI) of the brain without and with contrast 2.MRI of the cervical and thoracic spine without and with contrast TECHNIQUE: MRI of the brain, cervical and thoracic spine was performed prior to and following the uneventful administration of 7 mL intravenous GADAVIST contrast according to standard protocol. COMPARISON: MRI of the lumbar spine from 03/12/2019. FINDINGS: Brain: No evidence of acute or chronic hemorrhage is identified. No evidence of acute cerebral infarction is seen. There is mild cerebral volume loss with associated ex vacuo ventricular dilatation. No mass effect or midline shift is seen. Abnormal FLAIR signal with subtle edema and abnormal enhancement is identified in the right superior cerebellar peduncle, (series 6, image 15, series 10, image 28, series 15, image 21, and series 16, image 8). No enhancing lesions are otherwise identified. The pituitary height measures approximately 4.3 mm. The corpus callosum and sella appear otherwise grossly unremarkable. The posterior fossa and brainstem appear otherwise grossly unremarkable. The visualized portions of the orbits appear grossly unremarkable. There is mild paranasal sinus disease. Retained secretions in the left maxillary sinus. There is mild fluid signal in the mastoid air cells bilaterally.. Normal flow voids are demonstrated in the carotid arteries and basilar artery. The calvarium appears normal. Cervical spine: Relative straightening of the cervical lordosis. The alignment is otherwise maintained. Vertebral bodies are normal in height without evidence of compression fractures. Heterogenous marrow signal with associated endplate degenerative changes, worst at C4 the C5 and C5-C6, C6-C7. The bone marrow signal appear otherwise grossly unremarkable. The craniocervical junction appears normal. Minimal cord abutment at multiple levels. The spinal cord appears otherwise grossly unremarkable. Minimal patchy enhancement in the posterior and perhaps the lateral aspects of the cervical cord. For reference, minimal patchy enhancement is identified at the level of the inferior aspect of C4, (series 10, image 22).. There is associated faint T2 hyperintensity in the left posterior aspect of the cord, (series 5, image 22). Focal patchy enhancement in the posterior right aspect of the cord with associated subtle T2/STIR hyperintensity are noted at the C6 level, (series 4, image 9, series 9, image 9, and series 5, image 30). There is mild disc height loss at [...] disc bulge. Mild hypertrophy of the ligamentum flavum.. Mild spinal canal stenosis. Mild bilateral facet [...] neural foramina are patent. Thoracic spine: The alignment is normal. Vertebral bodies are normal in height without evidence of compression fractures. Marrow signal intensity is normal. The spinal cord appears normal. Punctate enhancement around the thoracic cord likely vascular in nature. Otherwise, no abnormal enhancement is identified. There is mild degenerative disc disease. No significant central canal stenosis is seen. The facets appear normal. No neural foraminal stenosis is seen. No soft tissue abnormality is identified. IMPRESSION: 1.Abnormal FLAIR signal and abnormal enhancement involving the right superior cerebellar peduncle. Findings are nonspecific however concerning for progressive supranuclear palsy, (PSP). Other differential considerations are not excluded. 2.Minimal foci of patchy abnormal signal and enhancement predominantly in the posterior and lateral aspects of the cervical cord at the level of C4 and C6. Findings are nonspecific and could be seen in the setting PSP or represent sequela of patient's prior transverse myelitis. Clinical correlation is recommended. Please correlate with prior imaging if available. 3.Minimal punctate enhancement around the thoracic cord likely vascular in nature. Otherwise, no abnormal enhancement in the thoracic spine. 4.Multilevel degenerative disc and joint disease as outlined above. > Interpreting Provider: Susana Graf MD on 09/28/2022 2:21 PM MRI BRAIN WWO CONTRAST Final Result PROCEDURE: MRI BRAIN WWO CONTRAST, MRI THORACIC SPINE WWO CONT, MRI CERVICAL SPINE WWO CONT, DATE/TIME OF EXAM: 09/28/2022 12:10 AM, LOCATION [facility] INDICATION: G37.3: Transverse myelitis (CMS/HCC) ADDITIONAL CLINICAL INFORMATION: Ordering Provider Reason For Exam: r/o plaque (accession [id number]), transvere myelitis followup (accession [id number]), transvrse myelitis (accession [id number]) Technologist Note: Does the patient have metal implants or stents?->No Additional: None. CONTRAST: GADOBUTROL 1 MMOL/ML IV SSM SO:7 mL EXAMINATION: 1.Magnetic resonance imaging (MRI) of the brain without and with contrast 2.MRI of the cervical and thoracic spine without and with contrast TECHNIQUE: MRI of the brain, cervical and thoracic spine was performed prior to and following the uneventful administration of 7 mL intravenous GADAVIST contrast according to standard protocol. COMPARISON: MRI of the lumbar spine from 03/12/2019. FINDINGS: Brain: No evidence of acute or chronic hemorrhage is identified. No evidence of acute cerebral infarction is seen. There is mild cerebral volume loss with associated ex vacuo ventricular dilatation. No mass effect or midline shift is seen. Abnormal FLAIR signal with subtle edema and abnormal enhancement is identified in the right superior cerebellar peduncle, (series 6, image 15, series 10, image 28, series 15, image 21, and series 16, image 8). No enhancing lesions are otherwise identified. The pituitary height measures approximately 4.3 mm. The corpus callosum and sella appear otherwise grossly unremarkable. The posterior fossa and brainstem appear otherwise grossly unremarkable. The visualized portions of the orbits appear grossly unremarkable. There is mild paranasal sinus disease. Retained secretions in the left maxillary sinus. There is mild fluid signal in the mastoid air cells bilaterally.. Normal flow voids are demonstrated in the carotid arteries and basilar artery. The calvarium appears normal. Cervical spine: Relative straightening of the cervical lordosis. The alignment is otherwise maintained. Vertebral bodies are normal in height without evidence of compression fractures. Heterogenous marrow signal with associated endplate degenerative changes, worst at C4 the C5 and C5-C6, C6-C7. The bone marrow signal appear otherwise grossly unremarkable. The craniocervical junction appears normal. Minimal cord abutment at multiple levels. The spinal cord appears otherwise grossly unremarkable. Minimal patchy enhancement in the posterior and perhaps the lateral aspects of the cervical cord. For reference, minimal patchy enhancement is identified at the level of the inferior aspect of C4, (series 10, image 22).. There is associated faint T2 hyperintensity in the left posterior aspect of the cord, (series 5, image 22). Focal patchy enhancement in the posterior right aspect of the cord with associated subtle T2/STIR hyperintensity are noted at the C6 level, (series 4, image 9, series 9, image 9, and series 5, image 30). There is mild disc height loss at [...] disc bulge. Mild hypertrophy of the ligamentum flavum.. Mild spinal canal stenosis. Mild bilateral facet [...] neural foramina are patent. Thoracic spine: The alignment is normal. Vertebral bodies are normal in height without evidence of compression fractures. Marrow signal intensity is normal. The spinal cord appears normal. Punctate enhancement around the thoracic cord likely vascular in nature. Otherwise, no abnormal enhancement is identified. There is mild degenerative disc disease. No significant central canal stenosis is seen. The facets appear normal. No neural foraminal stenosis is seen. No soft tissue abnormality is identified. IMPRESSION: 1.Abnormal FLAIR signal and abnormal enhancement involving the right superior cerebellar peduncle. Findings are nonspecific however concerning for progressive supranuclear palsy, (PSP). Other differential considerations are not excluded. 2.Minimal foci of patchy abnormal signal and enhancement predominantly in the posterior and lateral aspects of the cervical cord at the level of C4 and C6. Findings are nonspecific and could be seen in the setting PSP or represent sequela of patient's prior transverse myelitis. Clinical correlation is recommended. Please correlate with prior imaging if available. 3.Minimal punctate enhancement around the thoracic cord likely vascular in nature. Otherwise, no abnormal enhancement in the thoracic spine. 4.Multilevel degenerative disc and joint disease as outlined above. > Interpreting Provider: Susana Graf MD on 09/28/2022 2:21 PM ED Course: Clinical Impression: 1. Transverse myelitis (CMS/HCC) Disposition: Admit By signing my name below, I, Dewayne Chaves, attest that this documentation has been prepared under the direction and in the presence of Dr. Hill. Signed: Celestine Momin. I, Dr. Hill, personally performed the services described in this documentation. All medical record entries made by the scribe were at my direction and in my presence. I have reviewed the chart and agree that the record reflects my personal performance and is accurate and complete. TICKET DISTRIBUTOR * Jessica Crawford MD - 09/28/2022 12:02 AM CDT ED Attending Note I have personally seen, examined and been fully involved in the management of this patient with theresident Dr. Dyer. This note reflects combined documentation. Binu Justin is a 61 year old male presenting to the ED c/o paresthesias of the face and upper arms. Symptoms recurred today while at his rehab facility. He has a complicated recent medical history with COVID in Sept 2022, complicated by ascending paralysis. He was worked [facility] at [facility] and found to have transverse myelitis, started on steroids and antibiotics with minimal improvement and discharged to rehab facility essentially paralyzed from the waist down, with bowel and bladder incontinence. Approximately 10 days ago, he had tingling in the face and arms similar to what he experienced today, and was rehospitalized for additional steroids. He returned to the rehab facility 09/23. When the symptoms recurred today, the physician at the facility thought he should be transferred to [facility] to see a specialist - patient states he was told he might need a stent in his neck fortransfusion. Reportedly was awaiting direct admit bed to Dr. Gonzalez's service but facility sent him prior to bed being ready. PMH: COVID with transverse myelitis as above PSH: Appy SH: Quit tobacco and ETOH Jul 2022 - previously smoked 1 PPD and drank hard liquor. 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 Alcohol abuse ??? Arthritic-like pain ??? Low back pain Past Surgical History: Procedure Laterality Date ??? Appendectomy ??? HX OF HAND SURGERY Social History Socioeconomic History ??? Marital status: Single Spouse name: Not on file ??? Number of children: Not on file ??? Years of education: Not on file ??? Highest education level: Not on file Occupational History ??? Not on file Tobacco Use ??? Smoking status: Former Packs/day: 1.00 Types: Cigarettes ??? Smokeless tobacco: Former Vaping Use ??? Vaping Use: Former Substance and Sexual Activity ??? Alcohol use: Yes Comment: very seldom ??? Drug use: Not Currently Types: Marijuana Comment: stopped ??? Sexual activity: Not on file Other Topics Concern ??? Not on file Social History Narrative ??? Not on file Social Determinants of Health Financial Resource Strain: Not on file Food Insecurity: Not on file Transportation Needs: Not on file Physical Activity: Not on file Stress: Not on file Social Connections: Not on file Intimate Partner Violence: Not on file Housing Stability: Not on file Review of Systems: (+) positive All systems negative except as marked. Constitutional: Negative for fever HENT: Negative for sore throat. Eyes: Negative for visual changes Respiratory: Negative for cough, dyspnea Cardiovascular: Negative for chest pain, palpitations Gastrointestinal: + bowel incontinence Negative abdominal pain, nausea, vomiting, diarrhea Genitourinary: + Indwelling Kothari Musculoskeletal: Negative for neck pain, back pain, myalgia Skin: Negative for rash, itching Neurological: + new paresthesias, chronic BLE weakness Negative for MEDINA, dizziness Psychiatric: Negative for SI, hallucinations, anxiety Vitals: 09/27/22194109/27/22201309/27/222028 BP: 114/85 131/80 Pulse: 95 92 Resp: 17 12 Temp: 98.1 ??F (36.7 ??C) SpO2: 95% 95% Weight: 70.8 kg (156 lb) Height: 1.778 m (5' 10) Exam: Constitutional: well developed, well nourished, no acute distress HENT: normocephalic, atraumatic, moist oral mucosa Eyes: PERRL, EOMI, conjunctiva normal Neck: supple, normal ROM, no JVD Cardiovascular: regular rate and rhythm, no gallops, murmurs, or rubs Respiratory: no respiratory distress, clear to auscultation bilaterally Abdomen: positive bowel sounds, soft, non-tender, non-distended Musculoskeletal: no gross deformities or bony tenderness to palpation, FROM throughout, radial and DP pulses 2+ bilaterally Skin: warm, dry, no rashes Neurological: awake, alert&OX3, CNI, sensation intact to light touch in all nerve distributionsof the upper extremities bilaterally, strength 5+/5 in BUE. Minimal sensation below T12 and strength 0/5 in BLE. Patellar reflexes absent Psychiatric: expresses frustration with current condition Medical Decision Makin. 61 y/o male with transverse myelitis, dense deficit to BLE and recurring subjective symptoms above the waist. Differential diagnosis considered: Transverse myelitis Plan: Consult Neurology Request records from OSH Defer imaging and additional lab work up to Neuro Results: Labs Reviewed CBC W AUTO DIFFERENTIAL - Abnormal; Notable for the following components: Result Value WBC 19.6 (*) Neutrophils % 75.5 (*) Lymphocytes % 13.3 (*) Neutrophils Absolute 14.79 (*) Monocytes Absolute 1.35 (*) Immature Granulocytes % 3.4 (*) All other components within normal limits COMPREHENSIVE METABOLIC PANEL - Abnormal; Notable for the following components: Sodium 135 (*) ALT 98 (*) BUN/Creatinine Ratio 30 (*) Albumin/Globulin Ratio 1.0 (*) All other components within normal limits NMO/AQP4 FACS AB RFLX TITER CHIEF MEDICAL TECHNOLOGIST DEMYELINATING (CDS1) MRI CERVICAL SPINE WWO CONT (Results Pending) MRI THORACIC SPINE WWO CONT (Results Pending) MRI BRAIN WWO CONTRAST (Results Pending) ED course: The patient's Oxygen Saturation Monitor was interpreted by me. The reading was 95%. The patient wason RA at the time of the reading. This is interpreted as normal. Consult Yes Procedure done at this time No Ultrasound done at this time No CRITICAL CARE IN THE ED No Orders and Medicine administered during this encounter: Orders Placed This Encounter ??? MRI BRAIN WWO CONTRAST ??? MRI CERVICAL SPINE WWO CONT ??? MRI THORACIC SPINE WWO CONT ??? CBC W AUTO DIFFERENTIAL ??? COMPREHENSIVE METABOLIC PANEL ??? NMO/AQP4 FACS AB RFLX TITER ??? CHIEF MEDICAL TECHNOLOGIST DEMYELINATING (CDS1) ??? BASIC METABOLIC PANEL (CALCIUM TOTAL) ??? CBC W/O DIFFERENTIAL ??? CREATININE BLOOD ??? PLATELET COUNT AUTO ??? IP CONSULT TO NEUROLOGY ??? gadobutrol (Gadavist) injection ??? AND Linked Order Group ??? 0.9% NaCl injection 3 mL ??? 0.9% NaCl injection 1-10 mL ??? enoxaparin (Lovenox) injection 40 mg ??? polyethylene glycol 3350 (Miralax) packet 17 g ??? zolpidem (Ambien) tablet 5 mg ??? pantoprazole EC (Protonix) tablet 40 mg Medications gadobutrol (Gadavist) injection (7 mL Intravenous $ Given - Contrast 09/27/22 3295) 0.9% NaCl injection 3 mL (has no administration in time range) And 0.9% NaCl injection 1-10 mL (has no administration in time range) enoxaparin (Lovenox) injection 40 mg (has no administration in time range) polyethylene glycol 3350 (Miralax) packet 17 g (has no administration in time range) zolpidem (Ambien) tablet 5 mg (has no administration in time range) pantoprazole EC (Protonix) tablet 40 mg (has no administration in time range) Clinical Impression: 1. Transverse myelitis (CMS/HCC) Disposition: Admit Neurology TICKET DISTRIBUTOR * Eduardo Thorne MD - 09/27/2022 11:03 PM CDT ASSUMED CARE NOTE Patient signed out to me by Dr. Crawford at 11:03 PM. Briefly, Binu Justin is a 61 year old male is being evaluated for BLE weakness. Patient admitted to Neurology for concern for transverse myelitis At this time the patient's condition is Stable. Pending bed availability Plan is admit to Neurology, presently awaiting inpatient bed assignment 7:00 a.m.-no history so the night. Care to 1 pending inpatient bed assignment Clinical Impression: 1. Transverse myelitis (CMS/HCC) Disposition: Admit By signing my name below, I, Dewayne Chaves, attest that this documentation has been prepared under the direction and in the presence of Dr. Thorne. Signed: Celestine Momin. I, Dr. Thorne, personally performed the services described in this documentation. All medical record entries made by the scribe were at my direction and in my presence. I have reviewed the chart andagree that the record reflects my personal performance and is accurate and complete. * Marci Noel RN - 09/27/2022 10:47 PM CDT MD Dent was contacted via phone to have a order Placed to have Pt kothari's Catheter change, However requested that we don't change Pt kothari's Catheter. * Marci Noel RN - 09/27/2022 7:39 PM CDT Pt [facility] with a C/O weakness and numbness with mild tingling sensation to both upper extremities and face. Pt stated he is unable to move both legs about 5 Weeks now . AO4. Pt came with Kothari's catheter same placed 12 days ago. documented in this encounter Plan of Treatment Scheduled Orders Name Type Priority Associated Diagnoses Orde r Schedule EMG WITH NERVE CONDUCTION STUDY Neurology Routine ONCE for 1 Occu rrences starting 09/28/2022 until 09/28/2022 Scheduled Referrals Name Type Priority Associated Diagnoses Orde r Schedule Referral to Home Care Outpatient Referral Routine Transverse myelitis (HCC) Ordered: 10/01/2022 documented as of this encounter Procedures Procedure Name Priority Date/Time Associated Diagnosis Comments CBC W/O DIFFERENTIAL AM Draw 10/01/2022 1:43 AM WORK TICKET DISTRIBUTOR BASIC METABOLIC PANEL (CALCIUM TOTAL) Routine 10/01/2022 1:43 AM WORK TICKET DISTRIBUTOR OLIGOCLONAL BANDS CSF+BLOOD PANEL Routine 09/30/2022 5:19 PM WORK TICKET DISTRIBUTOR Transverse myelitis (HCC) VDRL CSF W REFLEX TO TITER Routine 09/30/2022 4:58 PM WORK TICKET DISTRIBUTOR Transverse myelitis (HCC) HERPES SIMPLEX 1+2 PCR CSF Routine 09/30/2022 4:58 PM WORK TICKET DISTRIBUTOR Transverse myelitis (HCC) PROTEIN CSF YARIEL 09/30/2022 4:58 PM WORK TICKET DISTRIBUTOR Transverse myelitis (HCC) GLUCOSE CSF Routine 09/30/2022 4:58 PM WORK TICKET DISTRIBUTOR Transverse myelitis (HCC) HOLD SPECIMEN CSF Routine 09/30/2022 4:5 7 PM WORK TICKET DISTRIBUTOR Transverse myelitis (HCC) CELL COUNT W DIFFERENTIAL CSF STAT 09/30/2022 4:57 PM WORK TICKET DISTRIBUTOR Transverse myelitis (HCC) CULTURE CSF+GRAM STAIN Routine 2 4:56 PM WORK TICKET DISTRIBUTOR Transverse myelitis (HCC) GRAM STAIN (LAB ORDERED) Routine 09/30/2022 4:56 PM WORK TICKET DISTRIBUTOR Transverse myelitis (HCC) CULTURE CSF+GRAM STAIN Routine 4:56 PM WORK TICKET DISTRIBUTOR Transverse myelitis (HCC) JUANY HEP-2 IGG BY IFA Routine 09/30/2022 8:43 AM WORK TICKET DISTRIBUTOR Transverse myelitis (HCC) ANCA VASCULITIS PANEL AM Draw 09/30/2022 8:43 AM WORK TICKET DISTRIBUTOR Transverse myelitis (HCC) JUANY BLOOD SCREEN W/REFLEX TITER AM Draw 09/30/2022 8:43 AM WORK TICKET DISTRIBUTOR Transverse myelitis (HCC) CBC W/O DIFFERENTIAL AM Draw 09/30/2022 12:18 AM WORK TICKET DISTRIBUTOR BASIC METABOLIC PANEL (CALCIUM TOTAL) Routine 09/30/2022 12:18 AM WORK TICKET DISTRIBUTOR URINE MICROSCOPIC ONLY REFLEX TO CULTURE STAT 09/29/2022 3:15 PM WORK TICKET DISTRIBUTOR DRUG SCREEN EXPANDED TOXICOLOGY URINE PANEL STAT 09/29/2022 3:15 PM WORK TICKET DISTRIBUTOR URINALYSIS REFLEX MICROSCOPIC REFLEX CULTURE STAT 09/29/2022 3:15 PM WORK TICKET DISTRIBUTOR CULTURE URINE STAT 09/29/2022 3:15 PM WORK TICKET DISTRIBUTOR LYME DISEASE TOTAL AB W RFLX IMMUNOASSAY Routine 09/29/2022 11:51 AM WORK TICKET DISTRIBUTOR SYPHILIS ANTIBODY CASCADING REFLEX Routine 09/29/2022 11:51 AM WORK TICKET DISTRIBUTOR JUANY BLOOD SCREEN W/REFLEX TITER Routine 09/29/2022 11:51 AM WORK TICKET DISTRIBUTOR IMMUNOGLOBULINS IGG/IGM/IGA PANEL Routine 09/29/2022 11:51 AM WORK TICKET DISTRIBUTOR GANGLIOSIDE (GM1,GD1B,GQ1B) ANTIBODY IGG/IGM AM Draw 09/29/2022 1:33 AM CDT CBC W/O DIFFERENTIAL AM Draw 09/29/2022 1:33 AM CDT BASIC METABOLIC PANEL (CALCIUM TOTAL) Routine 09/29/2022 1:33 AM CDT MRI LUMBAR SPINE WWO CONTRAST STAT 09/29/2022 1:22 AM CDT Transverse myelitis (HCC) CHIEF MEDICAL TECHNOLOGIST DEMYELINATING DISEASE EVAL BLOOD STAT 09/28/2022 1:59 AM CDT PLATELET COUNT AUTO STAT 09/28/2022 1 :59 AM CDT CREATININE BLOOD STAT 09/28/2022 1:59 AM CDT MRI THORACIC SPINE WWO CONT STAT 09/27/2022 11:35 PM CDT Transverse myelitis (HCC) MRI CERVICAL SPINE WWO CONT STAT 09/27/2022 11:35 PM CDT Transverse myelitis (HCC) MRI BRAIN WWO CONTRAST STAT 11:35 PM CDT Transverse myelitis (HCC) NMO/AQP4 FACS AB RFLX TITER STAT 09/27/2022 9:20 PM CDT CBC W AUTO DIFFERENTIAL STAT 09/27/20 9:20 PM CDT COMPREHENSIVE METABOLIC PANEL STAT 09/27/2022 9:20 PM CDT documented in this encounter Results * (ABNORMAL) CBC W/O DIFFERENTIAL (10/01/2022 1:43 AM WORK TICKET DISTRIBUTOR) WBC 7.2 3.5 - 10.5 10? 3 /uL 10/01/2022 1:56 AM WORK TICKET DISTRIBUTOR [facility] RBC 3.76(L) 4.30 - 5.70 10? 6 /uL 10/01/2022 1:56 AM WORK TICKET DISTRIBUTOR [facility] Hemoglobin 11.2(L) 12.0 - 17.6 g/dL 10/01/2022 1:56 AM WORK TICKET DISTRIBUTOR [facility] Hematocrit 33.7(L) 35.2 - 51.7 % 10/01/2022 1:56 AM [facility] MCV 89.6 80.7 - 98.3 fL 10/01/2022 1:56 AM [facility] MCH 29.8 26.7 - 34.0 pg 10/01/2022 1:56 AM [facility] MCHC 33.2 30.8 - 35.9 g/dL 10/01/2022 1:56 AM [facility] RDW-SD 44.5 36.0 - 50.0 fL 10/01/2022 1:56 AM [facility] RDW-CV 13.6 11.2 - 14.8 % 10/01/2022 1:56 AM [facility] Platelet Count 189 150 - 400 10? 3 /uL 10/01/2022 1:56 AM [facility] MPV 9.1(L) 9.4 - 12.9 fL 10/01/2022 1:56 AM [facility] nRBC Absolute 0.00 0 10? 3 /uL 10/01/2022 1:56 AM [facility] nRBC Auto 0.0 0 /100 WBC 10/01/2022 1:56 AM [facility] Blood BLOOD SPECIMEN / Unknown Lab Venipuncture / Unknown 10/01/2022 1:43 AM WORK TICKET DISTRIBUTOR 10/01/2022 1:53 AM WORK TICKET DISTRIBUTOR Ramon Gonzalez MD LAB - HEMATOLOGY ORD ERABLES Performing Organization Address [place]/State/[facility] Co de Phone Number [address] [id number] [phone] * (ABNORMAL) BASIC METABOLIC PANEL (CALCIUM TOTAL) (10/01/2022 1:43 AM WORK TICKET DISTRIBUTOR) BUN 20 7 - 26 mg/dL 10/01/2022 2:20 AM [facility] Creatinine 0.71 0.71 - 1.16 mg/dL 10/01/2022 2:20 AM [facility] Sodium 137 136 - 145 mmol/L 10/01/2022 2:20 AM [facility] Potassium 3.8 3.5 - 4.5 mmol/L 10/01/2022 2:20 AM [facility] Chloride 106 98 - 107 mmol/L 10/01/2022 2:20 AM [facility] CO2 23 22 - 29 mmol/L 10/01/2022 2:20 AM [facility] Glucose 107 70 - 115 mg/dL 10/01/2022 2:20 AM [facility] Calcium 8.5 8.4 - 10.2 mg/dL 10/01/2022 2:20 AM [facility] Anion Gap 12 8 - 18 10/01/2022 2:20 AM [facility] BUN/Creatinine Ratio 28(H) 7 - 23 10/01/2022 2:20 AM [facility] Osmolality Calculated 287 270 - 300 mOsm/kg 10/01/2022 2:20 AM [facility] eGFR by CKD-EPI >90 >=90 mL/min/1.7 3 m2 10/01/2022 2:20 AM [facility] Blood BLOOD SPECIMEN / Unknown Lab Venipuncture / Unknown 10/01/2022 1:43 AM WORK TICKET DISTRIBUTOR 10/01/2022 1:53 AM WORK TICKET DISTRIBUTOR Ramon Gonzalez MD LAB - CHEMISTRY FELICIA MENDEZ [facility] Organization Address City/State/ZIP Co de Phone Number [facility] [address] [place] [address], [facility] [phone] * (ABNORMAL) OLIGOCLONAL BANDS CSF+BLOOD PANEL (09/30/2022 5:19 PM WORK TICKET DISTRIBUTOR) Oligoclonal Bands Negative Negative 022 6:18 PM WORK TICKET DISTRIBUTOR [facility] ([facility]) Oligoclonial Bands Number 0 0 - 1 Bands 10/03/2022 6:18 PM WORK TICKET DISTRIBUTOR [facility]) IgG 5384(H) 768 - 1632 mg/dL 10/03/2022 6:18 PM WORK TICKET DISTRIBUTOR [facility] ([facility]) Comment: REFERENCE INTERVAL: Immunoglobulin G Access complete set of age- and/or gender-specific reference intervals for this test in the [facility] Directory ([employer]). IgG CSF 12.6(H) 0.0 - 6.0 mg/dL 10/03/2022 6:18 PM [facility] ([facility]) Albumin 2991(L) 3500 - 5200 mg/dL 10/03/2022 6:18 PM [facility] ([facility]) Albumin CSF 99(H) 0 - 35 mg/dL 10/03/2022 6:18 PM [facility] ([facility]) Albumin Index 33.1(H) 0.0 - 9.0 ratio 10/03/2022 6:18 PM WORK TICKET DISTRIBUTOR [facility] ([facility]) IgG Index 0.07(L) 0.28 - 0.66 ratio 10/03/2022 6:18 PM [facility] ([facility]) IgG/Albumin Ratio CSF 0.13 0.09 - 0.25 ratio 10/03/2022 6:18 PM [facility] ([facility]) Synthesis Rate <0.0 <=8.0 mg/d 10/03/2022 6:18 PM [facility] ([facility]) Interpretation Oligoclonial See Note 10/03/2022 6:18 PM [facility] ([facility]) Comment: Isoelectric focusing/immunofixation revealed no oligoclonal bands [...] complete breakdown of the barrier. Performed By: [facility] [address] [place] [address] Train Crew Member: Karthikeyan Lazcano MD, PhD Other MISCELLANEOUS SAMPLES / Unknown Collection / Unknown 09/30/2022 5:19 PM WORK TICKET DISTRIBUTOR 09/30/2022 5:37 PM WORK TICKET DISTRIBUTOR Ramon Gonzalez MD LAB - BODY FLUID ORD ERABLES [facility]) [address] [place] [address], [facility] * HERPES SIMPLEX 1+2 PCR CSF (09/30/2022 4:58 PM WORK TICKET DISTRIBUTOR) Herpes Simplex Virus 1 PCR CSF Not detected Not detected 10/01/2022 5:43 AM WORK TICKET DISTRIBUTOR [facility] MICROBIOLOGY Herpes Simplex Virus 2 PCR CSF Not detected Not detected 10/01/2022 5:43 AM WORK TICKET DISTRIBUTOR [facility] MICROBIOLOGY Microbiology CEREBROSPINAL FLUID SPECIMEN / Unknown Collection / Unknown 09/30/2022 4:58 PM WORK TICKET DISTRIBUTOR 09/30/2022 4:58 PM WORK TICKET DISTRIBUTOR Ramon Gonzalez MD LAB - MICROBIOLOGY O RDERABLES [facility] MICROBIOLOGY [address] [place] [address], [facility] [phone] * GLUCOSE CSF (09/30/2022 4:58 PM WORK TICKET DISTRIBUTOR) Glucose CSF 64 40 - 70 mg/dL 09/30/2022 5:26 PM WORK TICKET DISTRIBUTOR [facility] Cerebral spinal fluid CEREBROSPINAL FLUID SPECIMEN / Unknown Collection / Unknown 09/30/2022 4:58 PM WORK TICKET DISTRIBUTOR 09/30/2022 4:58 PM WORK TICKET DISTRIBUTOR Ramon Gonzalez MD LAB - BODY FLUID ORD ERABLES Performing Organization Address City/[facility]/ZIP Co de Phone Number [address] [address], [place] [phone] * VDRL CSF W REFLEX TO TITER (09/30/2022 4:58 PM WORK TICKET DISTRIBUTOR) VDRL CSF Non Reactive Non Reactive 10/02/2022 4:16 PM WORK TICKET DISTRIBUTOR [facility] ([facility]) Comment: Because the VDRL was Non Reactive, the VDRL titer was not performed. Performed by [facility], [address] [place] [id number] [email or web address], Karthikeyan Lazcano MD, PHD, Lab. Director Cerebral spinal fluid CEREBROSPINAL FLUID SPECIMEN / Unknown Collection / Unknown 09/30/2022 4:58 PM WORK TICKET DISTRIBUTOR 09/30/2022 4:58 PM WORK TICKET DISTRIBUTOR Ramon Gonzalez MD LAB - BODY FLUID ORD ERABLES [facility] ([facility]) [address] [place] [address], [facility] * (ABNORMAL) PROTEIN CSF (09/30/2022 4:58 PM WORK TICKET DISTRIBUTOR) Protein CSF 143(H) 15 - 45 mg/dL 09/30/2022 5:26 PM WORK TICKET DISTRIBUTOR [facility] Cerebral spinal fluid CEREBROSPINAL FLUID SPECIMEN / Unknown Collection / Unknown 09/30/2022 4:58 PM WORK TICKET DISTRIBUTOR 09/30/2022 4:58 PM WORK TICKET DISTRIBUTOR Ramon Gonzalez MD LAB - BODY FLUID ORD ERABLES [facility] [address] [place] [address] [phone] * CELL COUNT W DIFFERENTIAL CSF (09/30/2022 4:57 PM WORK TICKET DISTRIBUTOR) Color Fluid Colorless Colorless, Straw 09/30/2022 5:17 PM WORK TICKET DISTRIBUTOR [facility] Clarity Fluid Clear Clear 09/30/2022 5:17 PM WORK TICKET DISTRIBUTOR [facility] Volume Fluid 1.0 mL 09/30/2022 5:17 PM WORK TICKET DISTRIBUTOR [facility] WBC Calculation Fluid 1 0 - 5 x10e6/L 09/30/2022 5:17 PM [facility] RBC Calculation 1 x10e6/L 5:17 PM WORK TICKET DISTRIBUTOR [facility] Xanthochromia Fluid Negative Negative 09/30/2022 5:17 PM WORK TICKET DISTRIBUTOR [facility] Cerebral spinal fluid CEREBROSPINAL FLUID SPECIMEN / Unknown Collection / Unknown 09/30/2022 4:57 PM WORK TICKET DISTRIBUTOR 09/30/2022 4:57 PM WORK TICKET DISTRIBUTOR Narrative [facility] - 09/30/2022 5:17 PM WORK TICKET DISTRIBUTOR No reference ranges established for body fluid cell counts. The reference ranges provided are derived from published literature. The test results must be integrated into the clinical context for interpretation. Ramon Goznalez MD LAB - BODY FLUID ORD ERABLES Performing Organization Address City/[facility]/ZIP Co de Phone Number [address] [address], [facility] [phone] * HOLD SPECIMEN CSF (09/30/2022 4:57 PM WORK TICKET DISTRIBUTOR) Specimen Hold 09/30/2022 6:10 PM WORK TICKET DISTRIBUTOR [facility] Comment:The Hold Sample has been received in the lab and will be held for 30 days. Cerebral spinal fluid CEREBROSPINAL FLUID SPECIMEN / Unknown Collection / Unknown 09/30/2022 4:57 PM WORK TICKET DISTRIBUTOR 09/30/2022 4:57 PM WORK TICKET DISTRIBUTOR Ramon Gonzalez MD LAB - BODY FLUID ORD ERABLES Performing Organization Address [place]/[facility] Co de Phone Number [address] [address], [facility] [phone] * GRAM STAIN (LAB ORDERED) (09/30/2022 4:56 PM WORK TICKET DISTRIBUTOR) Gram Stain No organisms seen 022 10:48 PM WORK TICKET DISTRIBUTOR [facility] Gram Stain No polymorphonuclear cells 09/30/2022 10:48 PM WORK TICKET DISTRIBUTOR [facility] Microbiology Collection / Unknown 09/30/2022 4:56 PM WORK TICKET DISTRIBUTOR 09/30/2022 4:56 PM WORK TICKET DISTRIBUTOR Ramon Gonzalez MD LAB - MICROBIOLOGY O RDERABLES Performing Organization Address City/[facility]/ZIP Co de Phone Number [address] [address], [place] [phone] * CULTURE CSF+GRAM STAIN (09/30/2022 4:56 PM WORK TICKET DISTRIBUTOR) Culture No growth BENJAMIN 10/07/2022 6:07 AM WORK TICKET DISTRIBUTOR [facility] Gram Stain No organisms seen 022 6:07 AM WORK TICKET DISTRIBUTOR [facility] Gram Stain No polymorphonuclear cells 10/07/2022 6:07 AM WORK TICKET DISTRIBUTOR [facility] Cerebral spinal fluid CEREBROSPINAL FLUID SPECIMEN / Unknown Collection / Unknown 09/30/2022 4:56 PM WORK TICKET DISTRIBUTOR 09/30/2022 4:56 PM WORK TICKET DISTRIBUTOR Ramon Gonzalez MD LAB - MICROBIOLOGY O RDERABLES [facility] [address] [place], [place] [address], [facility] [phone] * JUNAY HEP-2 IGG BY IFA (09/30/2022 8:43 AM WORK TICKET DISTRIBUTOR) JUANY HEp-2 IgG <1:80 <1:80 10/04/2022 6:44 AM WORK TICKET DISTRIBUTOR [facility] ([facility]) JUANY Interpretive Comment See Note 10/04/2022 6:44 AM WORK TICKET DISTRIBUTOR [facility] ([facility]) Comment: Antinuclear antibodies by IFA negative for [...] not necessarily rule out SARD. Performed By: [facility] [address] [place] [id number] Train [employer] Member: Karthikeyan Lazcano MD, PhD Blood BLOOD SPECIMEN / Unknown Lab Venipuncture / Unknown 09/30/2022 8:43 AM WORK TICKET DISTRIBUTOR 09/30/2022 9:28 AM WORK TICKET DISTRIBUTOR Ramon Gonzalez MD LAB - SEROLOGY ORDER YESICA [facility] [employer] [facility]) [address] [place] [address], [facility] * ANCA VASCULITIS PANEL (09/30/2022 8:43 AM WORK TICKET DISTRIBUTOR) Myeloperoxidase Antibody 0 0 - 19 AU/mL 10/05/2022 3:34 PM WORK TICKET DISTRIBUTOR [facility] ([facility]) Comment: INTERPRETIVE INFORMATION: Myeloperoxidase Abs, IgG ??19 AU/mL or Less ......... Negative ??20-25 AU/mL .............. Equivocal ??26 AU/mL or Greater ...... Positive Approximately 90% of patients with a P-ANCA pattern by IFA have antibodies specific for MPO. Serine Proteinase 3 IgG 1 0 - 19 AU/mL 10/05/2022 3:34 PM WORK TICKET DISTRIBUTOR [facility] [employer] ([facility]) Comment: INTERPRETIVE INFORMATION: Serine Proteinase 3, IgG ??19 AU/mL or Less ........ Negative ??20-25 AU/mL ............. Equivocal ??26 AU/mL or Greater ..... Positive Approximately 85% of patients with a C-ANCA pattern by IFA have antibodies specific for PR3. ANCA Titer IFA <1:20 <1:20 10/05/2022 3:34 PM WORK TICKET DISTRIBUTOR [facility] [employer] ([facility]) ANCA Pattern IFA None Detected None Detected 10/05/2022 3:34 PM WORK TICKET DISTRIBUTOR [facility] [employer] ([facility]) Comment: INTERPRETIVE INFORMATION: ANCA IFA Pattern Neutrophil Cytoplasmic Antibodies (C-ANCA = granular cytoplasmic staining, P-ANCA = perinuclear staining) are found in the serum of over 90 percent of patients with certain necrotizing systemic vasculitides, and usually in less than 5 percent of patients with collagen vascular disease or arthritis. Performed By: [facility] [address] [place] [address] Train Crew Member: Karthikeyan Lazcano MD, PhD Blood BLOOD SPECIMEN / Unknown Lab Venipuncture / Unknown 09/30/2022 8:43 AM WORK TICKET DISTRIBUTOR 09/30/2022 9:28 AM WORK TICKET DISTRIBUTOR Ramon Gonzalez MD LAB - CHEMISTRY FELICIA MENDEZ Performing Organization Address [place]/[facility] Co de Phone Number [facility] [employer] [facility]) [address] [place] [address] * (ABNORMAL) JUANY BLOOD SCREEN W/REFLEX TITER (09/30/2022 8:43 AM WORK TICKET DISTRIBUTOR) Pathologist [facility] JUANY IgG Detected (A) None Detected 10/02/2022 11:28 PM WORK TICKET DISTRIBUTOR [facility] [employer] ([facility]) Comment: Antibodies to Anti-Nuclear Antibodies (JUANY) detected. Additional testing to follow. INTERPRETIVE INFORMATION: Anti-Nuclear Antibodies (JUANY), IgG by CRISTAL Antinuclear Antibodies (JUANY), IgG by CRISTAL: JUANY specimens are screened using enzyme-linked immunosorbent assay (CRISTAL) methodology. All CRISTAL results reported as Detected are further tested by indirect fluorescent assay (IFA) using HEp-2 substrate with an IgG-specific conjugate. The JUANY CRISTAL screen is designed to detect antibodies against dsDNA, histones, SS-A (Ro), SS-B (La), Cornejo, Cornejo/MANAGER BEVERAGE, Scl-70, Lucía-1, centromeric proteins, other antigens extracted from the HEp-2 cell nucleus. JUANY CRISTAL assays have been reported to have lower sensitivities than JUANY IFA for systemic autoimmune rheumatic diseases (SARD). Negative results do not necessarily rule out SARD. Performed By: [facility] [address] [place] [address] Train Crew Member: Karthikeyan Lazcano MD, PhD Blood BLOOD SPECIMEN / Unknown Lab Venipuncture / Unknown 09/30/2022 8:43 AM WORK TICKET DISTRIBUTOR 09/30/2022 9:28 AM WORK TICKET DISTRIBUTOR Ramon Gonzalez MD LAB - CHEMISTRY FELICIA MENDEZ Performing Organization Address City/[facility]/ZIP Co de Phone Number [facility] [employer] [facility]) [address] [place] [address], [facility] * (ABNORMAL) CBC W/O DIFFERENTIAL (09/30/2022 12:18 AM WORK TICKET DISTRIBUTOR) Pathologist [facility] WBC 10.9(H) 3.5 - 10.5 10? 3 /uL 09/30/2022 12:50 AM WORK TICKET DISTRIBUTOR [facility] RBC 4.02(L) 4.30 - 5.70 10? 6 /uL 09/30/2022 12:50 AM [facility] Hemoglobin 11.9(L) 12.0 - 17.6 g/dL 09/30/2022 12:50 AM [facility] Hematocrit 36.5 35.2 - 51.7 % 09/30/2022 12:50 AM [facility] MCV 90.8 80.7 - 98.3 fL 09/30/2022 12:50 AM [facility] MCH 29.6 26.7 - 34.0 pg 09/30/2022 12:50 AM [facility] MCHC 32.6 30.8 - 35.9 g/dL 09/30/2022 12:50 AM [facility] RDW-SD 45.5 36.0 - 50.0 fL 09/30/2022 12:50 AM [facility] RDW-CV 13.7 11.2 - 14.8 % 09/30/2022 12:50 AM [facility] Platelet Count 193 150 - 400 10? 3 /uL 09/30/2022 12:50 AM [facility] MPV 9.0(L) 9.4 - 12.9 fL 09/30/2022 12:50 AM [facility] nRBC Absolute 0.00 0 10? 3 /uL 09/30/2022 12:50 AM [facility] nRBC Auto 0.0 0 /100 WBC 09/30/2022 12:50 AM [facility] Blood BLOOD SPECIMEN / Unknown Lab Venipuncture / Unknown 09/30/2022 12:18 AM WORK TICKET DISTRIBUTOR 09/30/2022 12:32 AM [facility] Ramon Gonzalez MD LAB - HEMATOLOGY ORD ERABLES [address] [address], [facility] [phone] * (ABNORMAL) BASIC METABOLIC PANEL (CALCIUM TOTAL) (09/30/2022 12:18 AM WORK TICKET DISTRIBUTOR) BUN 18 7 - 26 mg/dL 09/30/2022 1:05 AM [facility] Creatinine 0.75 0.71 - 1.16 mg/dL 09/30/2022 1:05 AM [facility] Sodium 139 136 - 145 mmol/L 09/30/2022 1:05 AM [facility] Potassium 4.0 3.5 - 4.5 mmol/L 09/30/2022 1:05 AM [facility] Chloride 106 98 - 107 mmol/L 09/30/2022 1:05 AM [facility] CO2 21(L) 22 - 29 mmol/L 09/30/2022 1:05 AM [facility] Glucose 111 70 - 115 mg/dL 09/30/2022 1:05 AM [facility] Calcium 8.9 8.4 - 10.2 mg/dL 09/30/2022 1:05 AM [facility] Anion Gap 16 8 - 18 09/30/2022 1:05 AM [facility] BUN/Creatinine Ratio 24(H) 7 - 23 09/30/2022 1:05 AM [facility] Osmolality Calculated 291 270 - 300 mOsm/kg 09/30/2022 1:05 AM [facility] eGFR by CKD-EPI >90 >=90 mL/min/1.7 3 m2 09/30/2022 1:05 AM [facility] Blood BLOOD SPECIMEN / Unknown Lab Venipuncture / Unknown 09/30/2022 12:18 AM WORK TICKET DISTRIBUTOR 09/30/2022 12:32 AM WORK TICKET DISTRIBUTOR Ramon Gonzalez MD LAB - CHEMISTRY FELICIA MENDEZ [facility] Organization Address City/State/[facility] Co de Phone Number [facility] [address] [place] [phone] [phone] * (ABNORMAL) CULTURE URINE (09/29/2022 3:15 PM WORK TICKET DISTRIBUTOR) Culture Urine >100,000 CFU/mL Pseudomonas aeruginosa(A) BENJAMIN 10/01/2022 4:58 AM [facility] Urine URINE SPECIMEN OBTAINED VIA INDWELLING URINARY CATHETER / Unknown Collection / Unknown 09/29/2022 3:15 PM WORK TICKET DISTRIBUTOR 09/29/2022 3:49 PM WORK TICKET DISTRIBUTOR Narrative Organism Antibiotic Method Susceptibility Pseudomonas aeruginosa [...] Gonzalez MD LAB - MICROBIOLOGY O RDERABLES [facility] [address] [place] [address], [facility] [phone] * (ABNORMAL) URINE MICROSCOPIC ONLY REFLEX TO CULTURE (09/29/2022 3:15 PM WORK TICKET DISTRIBUTOR) Reflex Status Culture to follow 09/29/2022 3:50 PM WORK TICKET DISTRIBUTOR [facility] RBC UA 21-50(A) None Seen, 0-2, 3-5 /HPF 09/29/2022 3:50 PM [facility] WBC UA >100(A) None Seen, 0-5 /HPF 09/29/2022 3:50 PM [facility] WBC Clumps Few(A) None /HPF 09/29/2022 3:50 PM [facility] Bacteria UA 1+(A) None /HPF 09/29/2022 3:50 PM [facility] Squamous Epithelial Cells UA None Seen None Seen, 0-2, 3-5 /HPF 09/29/2022 3:50 PM [facility] Mucus UA 1+ /LPF 09/29/2022 3:50 PM [facility] Urine URINE SPECIMEN OBTAINED VIA [employer] URINARY CATHETER / Unknown Collection / Unknown 09/29/2022 3:15 PM WORK TICKET DISTRIBUTOR 09/29/2022 3:26 PM WORK TICKET DISTRIBUTOR [facility] - 09/29/2022 3:50 PM WORK TICKET DISTRIBUTOR Ramon Gonzalez MD LAB - URINALYSIS ORD ERABLES [facility] [address] [place] [address], [facility] [phone] * DRUG SCREEN EXPANDED TOXICOLOGY URINE PANEL (09/29/2022 3:15 PM WORK TICKET DISTRIBUTOR) Drug Screen Expanded see scanned report 10/01/2022 9:12 AM WORK TICKET DISTRIBUTOR [facility] REF LAB NON INTERF Urine URINE / Unknown Collection / Unknown 09/29/2022 3:15 PM WORK TICKET DISTRIBUTOR 09/29/2022 3:29 PM WORK TICKET DISTRIBUTOR Ramon Gonzalez MD LAB - URINE CHEMISTR Y ORDERABLES [facility] REF LAB NON INTERF [address] [place] [address], [facility] [phone] * (ABNORMAL) URINALYSIS REFLEX MICROSCOPIC REFLEX CULTURE (09/29/2022 3:15 PM WORK TICKET DISTRIBUTOR) Color UA Yellow Straw, Yellow 09/29/2022 3:40 PM [facility] Clarity UA Cloudy(A) Clear 09/29/2022 3:40 PM [facility] Specific [place] UA 1.019 1.005 - 1.030 09/29/2022 3:40 PM [facility] pH UA 5.0 5.0 - 8.0 pH 09/29/2022 3:40 PM [facility] Protein UA 1+(A) Negative 09/29/2022 3:40 PM [facility] Glucose UA Negative Negative 09/29/2022 3:40 PM [facility] Ketone UA Negative Negative 09/29/2022 3:40 PM [facility] Bilirubin UA Negative Negative 09/29/2022 3:40 PM [facility] Blood UA 2+(A) Negative 09/29/2022 3:40 PM [facility] Nitrite UA Positive(A) Negative 09/29/2022 3:40 PM [facility] Leukocyte Esterase 3+(A) Negative 09/29/2022 3:40 PM [facility] Urobilinogen UA Negative Negative mg/dL 09/29/2022 3:40 PM [facility] Comment UA Microscopic to follow. 09/29/2022 3:40 PM WORK TICKET DISTRIBUTOR [facility] Urine URINE SPECIMEN OBTAINED VIA [employer] URINARY CATHETER / Unknown Collection / Unknown 09/29/2022 3:15 PM WORK TICKET DISTRIBUTOR 09/29/2022 3:26 PM WORK TICKET DISTRIBUTOR Narrative [facility] - 09/29/2022 3:40 PM WORK TICKET DISTRIBUTOR Ramon Gonzalez MD LAB - URINALYSIS ORD ERABLES Performing Organization Address City/[facility]/ZIP Co de Phone Number [address] [address], [facility] [phone] * IMMUNOGLOBULINS IGG/IGM/IGA PANEL (09/29/2022 11:51 AM WORK TICKET DISTRIBUTOR) Pathologist [facility] IgG 798 767 - 1,590 mg/dL 09/29/2022 1:27 PM [facility] IgM 157 37 - 286 mg/dL 09/29/2022 1:27 PM [facility] IgA 143 61 - 356 mg/dL 09/29/2022 1:27 PM [facility] Blood BLOOD SPECIMEN / Unknown Lab Venipuncture / Unknown 09/29/2022 11:51 AM WORK TICKET DISTRIBUTOR 09/29/2022 12:20 PM WORK TICKET DISTRIBUTOR Ramon Gonzalez MD LAB - CHEMISTRY ORDE RABLES Performing Organization Address City/[facility]/ZIP Co de Phone Number [address] [address], [facility] [phone] * LYME DISEASE TOTAL AB W RFLX IMMUNOASSAY (09/29/2022 11:51 AM WORK TICKET DISTRIBUTOR) Pathologist [facility] Lyme Antibody Total Negative Negative 10/01/2022 9:11 AM WORK TICKET DISTRIBUTOR [facility] ([facility]) Comment: Lyme antibodies not detected. Reflex testing [...] Lab Venipuncture / Unknown 09/29/2022 11:51 AM WORK TICKET DISTRIBUTOR 09/29/2022 12:20 PM WORK TICKET DISTRIBUTOR Narrative [facility] ([facility]) - 10/01/2022 9:11 AM WORK TICKET DISTRIBUTOR Performed at: ??01 - [facility] [address] [place], [place] ??[id number] Tray Setter: Paul Lovett PhD, Phone: ??[phone] Ramon Gonzalez MD LAB - CHEMISTRY FELICIA MENDEZ Performing Organization Address City/[facility]/ZIP Co de Phone Number [facility] ([facility]) [address] [place] [address] * JUANY BLOOD SCREEN W/REFLEX TITER (09/29/2022 11:51 AM WORK TICKET DISTRIBUTOR) JUANY IgG None Detected None Detected 10/03/2022 5:34 PM WORK TICKET DISTRIBUTOR [employer] ([facility]) Comment: If suspicion of connective tissue disease is strong and JUANY EIA is negative, consider testing for JUANY by IFA ([id number]). INTERPRETIVE INFORMATION: Anti-Nuclear Antibodies (JUANY), IgG by CRISTAL Antinuclear Antibodies (JUANY), IgG by CRISTAL: JUANY specimens are screened using enzyme-linked immunosorbent assay (CRISTAL) methodology. All CRISTAL results reported as Detected are further tested by indirect fluorescent assay (IFA) using HEp-2 substrate with an IgG-specific conjugate. The JUANY CRISTAL screen is designed to detect antibodies against dsDNA, histones, SS-A (Ro), SS-B (La), Cornejo, Cornejo/MANAGER BEVERAGE, Scl-70, Lucía-1, centromeric proteins, other antigens extracted from the HEp-2 cell nucleus. JUANY CRISTAL assays have been reported to have lower sensitivities than JUANY IFA for systemic autoimmune rheumatic diseases (SARD). Negative results do not necessarily rule out SARD. Performed By: [facility] [address] [place] [id number] Train Crew Member: Karthikeyan Lazcano MD, PhD Blood BLOOD SPECIMEN / Unknown Lab Venipuncture / Unknown 09/29/2022 11:51 AM WORK TICKET DISTRIBUTOR 09/29/2022 12:20 PM WORK TICKET DISTRIBUTOR Ramon Gonzalez MD LAB - CHEMISTRY FELICIA MENDEZ [facility] [address] [place] [address], [facility] * SYPHILIS ANTIBODY CASCADING REFLEX (09/29/2022 11:51 AM WORK TICKET DISTRIBUTOR) Treponema pallidum Antibody Non-react zain Non-react zain 09/29/2022 1:40 PM WORK TICKET DISTRIBUTOR [facility] Comment: No Laboratory evidence of syphilis infection. ?? Note: ??Circulating antibodies may be low or undetectable in early infection. ??If recent exposure is suspected, re-draw sample in 2-4 weeks and repeat testing. Blood BLOOD SPECIMEN / Unknown Lab Venipuncture / Unknown 09/29/2022 11:51 AM WORK TICKET DISTRIBUTOR 09/29/2022 12:20 PM WORK TICKET DISTRIBUTOR Ramon Gonzalez MD LAB - SEROLOGY ORDER YESICA [facility] [address] [place] [address], [facility] [phone] * (ABNORMAL) CBC W/O DIFFERENTIAL (09/29/2022 1:33 AM CDT) Pathologist [facility] WBC 14.2(H) 3.5 - 10.5 10? 3 /uL 09/29/2022 1:49 AM CDT [facility] RBC 4.07(L) 4.30 - 5.70 10? 6 /uL 09/29/2022 1:49 AM CDT [facility] Hemoglobin 12.3 12.0 - 17.6 g/dL 09/29/2022 1:49 AM CDT [facility] Hematocrit 35.7 35.2 - 51.7 % 09/29/2022 1:49 AM T [facility] MCV 87.7 80.7 - 98.3 fL 09/29/2022 1:49 AM CDT [facility] MCH 30.2 26.7 - 34.0 pg 09/29/2022 1:49 AM CDT [facility] MCHC 34.5 30.8 - 35.9 g/dL 09/29/2022 1:49 AM CDT [facility] RDW-SD 44.0 36.0 - 50.0 fL 09/29/2022 1:49 AM CDT [facility] RDW-CV 13.8 11.2 - 14.8 % 09/29/2022 1:49 AM [facility] Platelet Count 215 150 - 400 10? 3 /uL 09/29/2022 1:49 AM [facility] MPV 8.9(L) 9.4 - 12.9 fL 09/29/2022 1:49 AM [facility] nRBC Absolute 0.00 0 10? 3 /uL 09/29/2022 1:49 AM [facility] nRBC Auto 0.0 0 /100 WBC 09/29/2022 1:49 AM [facility] Blood BLOOD SPECIMEN / Unknown Lab Venipuncture / Unknown 09/29/2022 1:33 AM CDT 09/29/2022 1:46 AM CDT Ramon Gonzalez MD LAB - HEMATOLOGY ORD ERABLES Performing Organization Address [place]/[facility] Co de Phone Number [address] [id number] [phone] * (ABNORMAL) BASIC METABOLIC PANEL (CALCIUM TOTAL) (09/29/2022 1:33 AM CDT) BUN 20 7 - 26 mg/dL 09/29/2022 2:07 AM [facility] Creatinine 0.65(L) 0.71 - 1.16 mg/dL 09/29/2022 2:07 AM [facility] Sodium 137 136 - 145 mmol/L 09/29/2022 2:07 AM [facility] Potassium 4.2 3.5 - 4.5 mmol/L 09/29/2022 2:07 AM [facility] Chloride 104 98 - 107 mmol/L 09/29/2022 2:07 AM [facility] CO2 24 22 - 29 mmol/L 09/29/2022 2:07 AM [facility] Glucose 103 70 - 115 mg/dL 09/29/2022 2:07 AM [facility] Calcium 9.0 8.4 - 10.2 mg/dL 09/29/2022 2:07 AM [facility] Anion Gap 13 8 - 18 09/29/2022 2:07 AM [facility] BUN/Creatinine Ratio 31(H) 7 - 23 09/29/2022 2:07 AM [facility] Osmolality Calculated 287 270 - 300 mOsm/kg 09/29/2022 2:07 AM [facility] eGFR by CKD-EPI >90 >=90 mL/min/1.7 3 m2 09/29/2022 2:07 AM [facility] Blood BLOOD SPECIMEN / Unknown Lab Venipuncture / Unknown 09/29/2022 1:33 AM CDT 09/29/2022 1:46 AM CDT Ramon Gonzalez MD LAB - CHEMISTRY FELICIA MENDEZ [facility] [address] [place] [address], [facility] [phone] * GANGLIOSIDE (GM1,GD1B,GQ1B) ANTIBODY IGG/IGM (09/29/2022 1:33 AM CDT) GM1 Antibody IgG 3 0 - 50 IV 10/04/20 22 9:19 AM [facility]) GM1 Antibody IgM 8 0 - 50 IV 10/04/20 22 9:19 AM [facility] Comment: INTERPRETIVE INFORMATION: Ganglioside (GM1) Antibodies, ?IgG [...] developed and its performance characteristics determined by [employer] [facility]. It has not been cleared or approved by the US Food and Drug Administration. This test was performed in a CLIA certified laboratory and is intended for clinical purposes. GD1b Antibody IgG 4 0 - 50 IV 022 9:19 AM [facility]) GD1b Antibody IgM 5 0 - 50 IV 022 9:19 AM [facility]) GQ1b Antibody IgG 3 0 - 50 IV 022 9:19 AM [facility]) GQ1b Antibody IgM 4 0 - 50 IV 022 9:19 AM [facility]) Comment: INTERPRETIVE INFORMATION: Ganglioside (GD1b and GQ1b) [...] Bess-Cam syndrome and may be elevated in Guillain-[place] syndrome patients with ophthalmoplegia. These tests by themselves are not diagnostic and should be used in conjunction with other clinical parameters to confirm disease. This test was developed and its performance characteristics determined by [employer]. It has not been cleared or approved by the [place] Food and Drug Administration. This test was performed in a CLIA certified laboratory and is intended for clinical purposes. Performed By: [facility] [address] [place] [address] Train Crew Member: Karthikeyan Lazcano MD, PhD Blood BLOOD SPECIMEN / Unknown Lab Venipuncture / Unknown 09/29/2022 1:33 AM CDT 09/29/2022 1:46 AM CDT Ramon Gonzalez MD LAB - CHEMISTRY FELICIA MENDEZ [facility] [employer] [facility]) [address] [place] [address], [facility] * MRI LUMBAR SPINE WWO CONTRAST (09/29/2022 1:22 AM CDT) Anatomical Region Laterality Modality Spine Magnetic Resonan ce 09/29/2022 8:50 PM [employer] TICK[employer] DISTRIBUTOR Impressions 09/29/2022 8:59 PM WORK TICKET DISTRIBUTOR IMPRESSION: 1.Multilevel degenerative disc and joint disease as detailed level by level above. 2.Faint enhancement of the cauda equina nerve roots likely within normal limits. > Interpreting Provider: Susana Graf MD on 09/29/2022 8:59 PM Narrative 09/29/2022 8:59 PM WORK TICKET DISTRIBUTOR PROCEDURE: ??MRI LUMBAR SPINE WWO CONTRAST, DATE/TIME OF EXAM: ??09/29/2022 1:22 AM, LOCATION ??[facility] INDICATION: G37.3: Transverse myelitis (CMS/HCC) ADDITIONAL CLINICAL [...] DATE/TIME OF EXAM: 09/29/2022 1:22 AM, LOCATION [facility] INDICATION: G37.3: Transverse myelitis (CMS/HCC) ADDITIONAL CLINICAL [...] 10? 3 /uL 09/28/2022 2:15 AM CDT [facility] Blood BLOOD SPECIMEN / Unknown Venipuncture / Unknown 09/28/2022 1:59 AM CDT 09/28/2022 2:09 AM CDT Jessica Crawford MD LAB - HEMATOLOGY ORD ERABLES [facility] [address] [place] [address], [facility] [phone] * (ABNORMAL) CREATININE BLOOD (09/28/2022 1:59 AM CDT) Creatinine 0.70(L) 0.71 - 1.16 mg/dL 09/28/2022 2:33 AM CDT [facility] eGFR by CKD-EPI >90 >=90 mL/min/1.7 3 m2 09/28/2022 2:33 AM CDT [facility] Blood BLOOD SPECIMEN / Unknown Venipuncture / Unknown 09/28/2022 1:59 AM CDT 09/28/2022 2:09 AM CDT Jessica Crawford MD LAB - CHEMISTRY FELICIA MENDEZ Performing Organization Address City/[facility]/ZIP Co de Phone Number [facility] [address] [place] [address], [facility] [phone] * CHIEF MEDICAL TECHNOLOGIST DEMYELINATING (CDS1) (09/28/2022 1:59 AM CDT) Pathologist [facility] See Scanned Document SSR 10/07/2022 12:45 PM WORK TICKET DISTRIBUTOR [facility] REF LAB NON INTERF CHIEF MEDICAL TECHNOLOGIST Demyelinating Eval 10/07/2022 12:45 PM WORK TICKET DISTRIBUTOR [facility] REF LAB NON INTERF Blood BLOOD SPECIMEN / Unknown Venipuncture / Unknown 09/28/2022 1:59 AM CDT 09/28/2022 2:06 AM CDT Jessica Crawford MD LAB - CHEMISTRY FELICIA MENDEZ Performing Organization Address City/[facility]/ZIP Co de Phone Number [facility] REF LAB NON INTERF [address] [place] [address], [facility] [phone] * MRI THORACIC SPINE WWO CONT (09/27/2022 11:35 PM CDT) Anatomical Region Laterality Modality Spine Magnetic Resonan ce 09/28/2022 1:36 PM CDT Impressions 09/28/2022 2:21 PM CDT IMPRESSION: 1.Abnormal FLAIR signal and abnormal enhancement involving the right superior cerebellar peduncle. Findings are nonspecific however concerning for progressive supranuclear palsy, (PSP). Other differential considerations are not excluded. 2.Minimal foci of patchy abnormal signal and enhancement predominantly in the posterior and lateral aspects of the cervical cord at the level of C4 and C6. Findings are nonspecific and could be seen in the setting PSP or represent sequela of patient's prior transverse myelitis. Clinical correlation is recommended. Please correlate with prior imaging if available. 3.Minimal punctate enhancement around the thoracic cord likely vascular in nature. Otherwise, no abnormal enhancement in the thoracic spine. 4.Multilevel degenerative disc and joint disease as outlined above. > Interpreting Provider: Susana Graf MD on 09/28/2022 2:21 PM Narrative 09/28/2022 2:21 PM CDT PROCEDURE: ??MRI BRAIN WWO CONTRAST, MRI THORACIC SPINE WWO CONT, MRI CERVICAL SPINE WWO CONT, DATE/TIME OF EXAM: ??09/28/2022 12:10 AM, LOCATION [facility] INDICATION: G37.3: Transverse myelitis (CMS/HCC) ADDITIONAL CLINICAL INFORMATION: Ordering Provider Reason For Exam: ??r/o plaque (accession [id number]), transvere myelitis followup (accession [id number]), transvrse myelitis (accession [id number]) Technologist Note: ??Does the patient have metal implants or stents?->No Additional: ??None. CONTRAST: ??GADOBUTROL 1 MMOL/ML IV SSM SO:7 mL EXAMINATION: 1.Magnetic resonance imaging (MRI) of the brain without and with contrast 2.MRI of the cervical and thoracic spine without and with contrast TECHNIQUE: MRI of the brain, cervical and thoracic spine was performed prior to and following the uneventful administration of 7 mL intravenous GADAVIST contrast according to standard protocol. COMPARISON: MRI of the lumbar spine from 03/12/2019. FINDINGS: Brain: No evidence of acute or chronic hemorrhage is identified. No evidence of acute cerebral infarction is seen. There is mild cerebral volume loss with associated ex vacuo ventricular dilatation. No mass effect or midline shift is seen. Abnormal FLAIR signal with subtle edema and abnormal enhancement is identified in the right superior cerebellar peduncle, (series 6, image 15, series 10, image 28, series 15, image 21, and series 16, image 8). No enhancing lesions are otherwise identified. The pituitary height measures approximately 4.3 mm. The corpus callosum and sella appear otherwise grossly unremarkable. The posterior fossa and brainstem appear otherwise grossly unremarkable. The visualized portions of the orbits appear grossly unremarkable. There is mild paranasal sinus disease. Retained secretions in the left maxillary sinus. There is mild fluid signal in the mastoid air cells bilaterally.. Normal flow voids are demonstrated in the carotid arteries and basilar artery. The calvarium appears normal. Cervical spine: Relative straightening of the cervical lordosis. The alignment is otherwise maintained. Vertebral bodies are normal in height without evidence of compression fractures. Heterogenous marrow signal with associated endplate degenerative changes, worst at C4 the C5 and C5-C6, C6-C7. The bone marrow signal appear otherwise grossly unremarkable. The craniocervical junction appears normal. Minimal cord abutment at multiple levels. The spinal cord appears otherwise grossly unremarkable. Minimal patchy enhancement in the posterior and perhaps the lateral aspects of the cervical cord. For reference, minimal patchy enhancement is identified at the level of the inferior aspect of C4, (series 10, image 22).. There is associated faint T2 hyperintensity in the left posterior aspect of the cord, (series 5, image 22). Focal patchy enhancement in the posterior right aspect of the cord with associated subtle T2/STIR hyperintensity are noted at the C6 level, (series 4, image 9, series 9, image 9, and series 5, image 30). There is mild disc height loss at [...] disc bulge. Mild hypertrophy of the ligamentum flavum.. Mild spinal canal stenosis. Mild bilateral facet [...] neural foramina are patent. Thoracic spine: The alignment is normal. Vertebral bodies are normal in height without evidence of compression fractures. Marrow signal intensity is normal. The spinal cord appears normal. Punctate enhancement around the thoracic cord likely vascular in nature. Otherwise, no abnormal enhancement is identified. There is mild degenerative disc disease. No significant central canal stenosis is seen. The facets appear normal. No neural foraminal stenosis is seen. No soft tissue abnormality is identified. Procedure Note Susana Graf MD - 09/28/2022 PROCEDURE: MRI BRAIN WWO CONTRAST, MRI THORACIC SPINE WWO CONT, MRI CERVICAL SPINE WWO CONT, DATE/TIME OF EXAM: 09/28/2022 12:10 AM, LOCATION [facility] INDICATION: G37.3: Transverse myelitis (CMS/HCC) ADDITIONAL CLINICAL INFORMATION: Ordering Provider Reason For Exam: r/o plaque (accession [id number]), transvere myelitis followup (accession [id number]), transvrse myelitis (accession [id number]) Technologist Note: Does the patient have metal implants or stents?->No Additional: None. CONTRAST: GADOBUTROL 1 MMOL/ML IV SSM SO:7 mL EXAMINATION: 1.Magnetic resonance imaging (MRI) of the brain without and withcontrast 2.MRI of the cervical and thoracic spine without and with contrast TECHNIQUE: MRI of the brain, cervical and thoracic spine was performed prior to and following the uneventful administration of 7 mL intravenous GADAVIST contrast according to standard protocol. COMPARISON: MRI of the lumbar spine from 03/12/2019. FINDINGS: Brain: No evidence of acute or chronic hemorrhage is identified. No evidence of acute cerebral infarction is seen. There is mild cerebral volume losswith associated ex vacuo ventricular dilatation. No mass effect or midlineshift is seen. Abnormal FLAIR signal with subtle edema and abnormalenhancement is identified in the right superior cerebellar peduncle, (series 6,image 15, series 10, image 28, series 15, image 21, and series 16, image 8).No enhancing lesions are otherwise identified. The pituitary heightmeasures approximately 4.3 mm. The corpus callosum and sella appear otherwise grossly unremarkable. The posterior fossa and brainstem appear otherwise grossly unremarkable. The visualized portions of the orbits appear grossly unremarkable. Thereis mild paranasal sinus disease. Retained secretions in the left maxillary sinus. There is mild fluid signal in the mastoid air cells bilaterally.. Normal flow voids are demonstrated in the carotid arteries and basilar artery. The calvarium appears normal. Cervical spine: Relative straightening of the cervical lordosis. The alignment isotherwise maintained. Vertebral bodies are normal in height without evidence of compression fractures. Heterogenous marrow signal with associatedendplate degenerative changes, worst at C4 the C5 and C5-C6, C6-C7. The bonemarrow signal appear otherwise grossly unremarkable. The craniocervicaljunction appears normal. Minimal cord abutment at multiple levels. The spinalcord appears otherwise grossly unremarkable. Minimal patchy enhancement inthe posterior and perhaps the lateral aspects of the cervical cord. For reference, minimal patchy enhancement is identified at the level of the inferior aspect of C4, (series 10, image 22).. There is associated faintT2 hyperintensity in the left posterior aspect of the cord, (series 5,image 22). Focal patchy enhancement in the posterior right aspect of the cord with associated subtle T2/STIR hyperintensity are noted at the C6 level, (series 4, image 9, series 9, image 9, and series 5, image 30). There is mild disc height loss at [...] Diffuse disc bulge. Mild hypertrophy of the ligamentumflavum.. Mild spinal canal stenosis. Mild bilateral facet [...] neural foramina are patent. Thoracic spine: The alignment is normal. Vertebral bodies are normal in height without evidence of compression fractures. Marrow signal intensity is normal.The spinal cord appears normal. Punctate enhancement around the thoraciccord likely vascular in nature. Otherwise, no abnormal enhancement is identified. There is mild degenerative disc disease. No significant central canal stenosis is seen. The facets appear normal. No neural foraminal stenosisis seen. No soft tissue abnormality is identified. IMPRESSION: 1.Abnormal FLAIR signal and abnormal enhancement involving the right superior cerebellar peduncle. Findings are nonspecific howeverconcerning for progressive supranuclear palsy, (PSP). Other differential considerations are not excluded. 2.Minimal foci of patchy abnormal signal and enhancement predominantlyin the posterior and lateral aspects of the cervical cord at the level ofC4 and C6. Findings are nonspecific and could be seen in the setting PSP or represent sequela of patient's prior transverse myelitis. Clinical correlation is recommended. Please correlate with prior imaging if available. 3.Minimal punctate enhancement around the thoracic cord likely vascularin nature. Otherwise, no abnormal enhancement in the thoracic spine. 4.Multilevel degenerative disc and joint disease as outlined above. > Interpreting Provider: Susana Graf MD on 09/28/2022 2:21 PM Jessica Crawford MD MR ORDERABLES * MRI CERVICAL SPINE WWO CONT (09/27/2022 11:35 PM CDT) Anatomical Region Laterality Modality Spine Magnetic Resonan ce 09/28/2022 1:36 PM CDT Impressions 09/28/2022 2:21 PM CDT IMPRESSION: 1.Abnormal FLAIR signal and abnormal enhancement involving the right superior cerebellar peduncle. Findings are nonspecific however concerning for progressive supranuclear palsy, (PSP). Other differential considerations are not excluded. 2.Minimal foci of patchy abnormal signal and enhancement predominantly in the posterior and lateral aspects of the cervical cord at the level of C4 and C6. Findings are nonspecific and could be seen in the setting PSP or represent sequela of patient's prior transverse myelitis. Clinical correlation is recommended. Please correlate with prior imaging if available. 3.Minimal punctate enhancement around the thoracic cord likely vascular in nature. Otherwise, no abnormal enhancement in the thoracic spine. 4.Multilevel degenerative disc and joint disease as outlined above. > Interpreting Provider: Susana Graf MD on 09/28/2022 2:21 PM Narrative 09/28/2022 2:21 PM CDT PROCEDURE: ??MRI BRAIN WWO CONTRAST, MRI THORACIC SPINE WWO CONT, MRI CERVICAL SPINE WWO CONT, DATE/TIME OF EXAM: ??09/28/2022 12:10 AM, LOCATION [facility] INDICATION: G37.3: Transverse myelitis (CMS/HCC) ADDITIONAL CLINICAL INFORMATION: Ordering Provider Reason For Exam: ??r/o plaque (accession [id number]), transvere myelitis followup (accession [id number]), transvrse myelitis (accession [id number]) Technologist Note: ??Does the patient have metal implants or stents?->No Additional: ??None. CONTRAST: ??GADOBUTROL 1 MMOL/ML IV SSM SO:7 mL EXAMINATION: 1.Magnetic resonance imaging (MRI) of the brain without and with contrast 2.MRI of the cervical and thoracic spine without and with contrast TECHNIQUE: MRI of the brain, cervical and thoracic spine was performed prior to and following the uneventful administration of 7 mL intravenous GADAVIST contrast according to standard protocol. COMPARISON: MRI of the lumbar spine from 03/12/2019. FINDINGS: Brain: No evidence of acute or chronic hemorrhage is identified. No evidence of acute cerebral infarction is seen. There is mild cerebral volume loss with associated ex vacuo ventricular dilatation. No mass effect or midline shift is seen. Abnormal FLAIR signal with subtle edema and abnormal enhancement is identified in the right superior cerebellar peduncle, (series 6, image 15, series 10, image 28, series 15, image 21, and series 16, image 8). No enhancing lesions are otherwise identified. The pituitary height measures approximately 4.3 mm. The corpus callosum and sella appear otherwise grossly unremarkable. The posterior fossa and brainstem appear otherwise grossly unremarkable. The visualized portions of the orbits appear grossly unremarkable. There is mild paranasal sinus disease. Retained secretions in the left maxillary sinus. There is mild fluid signal in the mastoid air cells bilaterally.. Normal flow voids are demonstrated in the carotid arteries and basilar artery. The calvarium appears normal. Cervical spine: Relative straightening of the cervical lordosis. The alignment is otherwise maintained. Vertebral bodies are normal in height without evidence of compression fractures. Heterogenous marrow signal with associated endplate degenerative changes, worst at C4 the C5 and C5-C6, C6-C7. The bone marrow signal appear otherwise grossly unremarkable. The craniocervical junction appears normal. Minimal cord abutment at multiple levels. The spinal cord appears otherwise grossly unremarkable. Minimal patchy enhancement in the posterior and perhaps the lateral aspects of the cervical cord. For reference, minimal patchy enhancement is identified at the level of the inferior aspect of C4, (series 10, image 22).. There is associated faint T2 hyperintensity in the left posterior aspect of the cord, (series 5, image 22). Focal patchy enhancement in the posterior right aspect of the cord with associated subtle T2/STIR hyperintensity are noted at the C6 level, (series 4, image 9, series 9, image 9, and series 5, image 30). There is mild disc height loss at [...] disc bulge. Mild hypertrophy of the ligamentum flavum.. Mild spinal canal stenosis. Mild bilateral facet [...] neural foramina are patent. Thoracic spine: The alignment is normal. Vertebral bodies are normal in height without evidence of compression fractures. Marrow signal intensity is normal. The spinal cord appears normal. Punctate enhancement around the thoracic cord likely vascular in nature. Otherwise, no abnormal enhancement is identified. There is mild degenerative disc disease. No significant central canal stenosis is seen. The facets appear normal. No neural foraminal stenosis is seen. No soft tissue abnormality is identified. Procedure Note Susana Graf MD - 09/28/2022 PROCEDURE: MRI BRAIN WWO CONTRAST, MRI THORACIC SPINE WWO CONT, MRI CERVICAL SPINE WWO CONT, DATE/TIME OF EXAM: 09/28/2022 12:10 AM, LOCATION [facility] INDICATION: G37.3: Transverse myelitis (CMS/HCC) ADDITIONAL CLINICAL INFORMATION: Ordering Provider Reason For Exam: r/o plaque (accession [id number]), transvere myelitis followup (accession [id number]), transvrse myelitis (accession [id number]) Technologist Note: Does the patient have metal implants or stents?->No Additional: None. CONTRAST: GADOBUTROL 1 MMOL/ML IV SSM SO:7 mL EXAMINATION: 1.Magnetic resonance imaging (MRI) of the brain without and withcontrast 2.MRI of the cervical and thoracic spine without and with contrast TECHNIQUE: MRI of the brain, cervical and thoracic spine was performed prior to and following the uneventful administration of 7 mL intravenous GADAVIST contrast according to standard protocol. COMPARISON: MRI of the lumbar spine from 03/12/2019. FINDINGS: Brain: No evidence of acute or chronic hemorrhage is identified. No evidence of acute cerebral infarction is seen. There is mild cerebral volume losswith associated ex vacuo ventricular dilatation. No mass effect or midlineshift is seen. Abnormal FLAIR signal with subtle edema and abnormalenhancement is identified in the right superior cerebellar peduncle, (series 6,image 15, series 10, image 28, series 15, image 21, and series 16, image 8).No enhancing lesions are otherwise identified. The pituitary heightmeasures approximately 4.3 mm. The corpus callosum and sella appear otherwise grossly unremarkable. The posterior fossa and brainstem appear otherwise grossly unremarkable. The visualized portions of the orbits appear grossly unremarkable. Thereis mild paranasal sinus disease. Retained secretions in the left maxillary sinus. There is mild fluid signal in the mastoid air cells bilaterally.. Normal flow voids are demonstrated in the carotid arteries and basilar artery. The calvarium appears normal. Cervical spine: Relative straightening of the cervical lordosis. The alignment isotherwise maintained. Vertebral bodies are normal in height without evidence of compression fractures. Heterogenous marrow signal with associatedendplate degenerative changes, worst at C4 the C5 and C5-C6, C6-C7. The bonemarrow signal appear otherwise grossly unremarkable. The craniocervicaljunction appears normal. Minimal cord abutment at multiple levels. The spinalcord appears otherwise grossly unremarkable. Minimal patchy enhancement inthe posterior and perhaps the lateral aspects of the cervical cord. For reference, minimal patchy enhancement is identified at the level of the inferior aspect of C4, (series 10, image 22).. There is associated faintT2 hyperintensity in the left posterior aspect of the cord, (series 5,image 22). Focal patchy enhancement in the posterior right aspect of the cord with associated subtle T2/STIR hyperintensity are noted at the C6 level, (series 4, image 9, series 9, image 9, and series 5, image 30). There is mild disc height loss at [...] Diffuse disc bulge. Mild hypertrophy of the ligamentumflavum.. Mild spinal canal stenosis. Mild bilateral facet [...] neural foramina are patent. Thoracic spine: The alignment is normal. Vertebral bodies are normal in height without evidence of compression fractures. Marrow signal intensity is normal.The spinal cord appears normal. Punctate enhancement around the thoraciccord likely vascular in nature. Otherwise, no abnormal enhancement is identified. There is mild degenerative disc disease. No significant central canal stenosis is seen. The facets appear normal. No neural foraminal stenosisis seen. No soft tissue abnormality is identified. IMPRESSION: 1.Abnormal FLAIR signal and abnormal enhancement involving the right superior cerebellar peduncle. Findings are nonspecific howeverconcerning for progressive supranuclear palsy, (PSP). Other differential considerations are not excluded. 2.Minimal foci of patchy abnormal signal and enhancement predominantlyin the posterior and lateral aspects of the cervical cord at the level ofC4 and C6. Findings are nonspecific and could be seen in the setting PSP or represent sequela of patient's prior transverse myelitis. Clinical correlation is recommended. Please correlate with prior imaging if available. 3.Minimal punctate enhancement around the thoracic cord likely vascularin nature. Otherwise, no abnormal enhancement in the thoracic spine. 4.Multilevel degenerative disc and joint disease as outlined above. > Interpreting Provider: Susana Graf MD on 09/28/2022 2:21 PM Jessica Crawford MD MR ORDERABLES * MRI BRAIN WWO CONTRAST (09/27/2022 11:35 PM CDT) Anatomical Region Laterality Modality Head Magnetic Resonan ce 09/28/2022 1:36 PM CDT Impressions 09/28/2022 2:21 PM CDT IMPRESSION: 1.Abnormal FLAIR signal and abnormal enhancement involving the right superior cerebellar peduncle. Findings are nonspecific however concerning for progressive supranuclear palsy, (PSP). Other differential considerations are not excluded. 2.Minimal foci of patchy abnormal signal and enhancement predominantly in the posterior and lateral aspects of the cervical cord at the level of C4 and C6. Findings are nonspecific and could be seen in the setting PSP or represent sequela of patient's prior transverse myelitis. Clinical correlation is recommended. Please correlate with prior imaging if available. 3.Minimal punctate enhancement around the thoracic cord likely vascular in nature. Otherwise, no abnormal enhancement in the thoracic spine. 4.Multilevel degenerative disc and joint disease as outlined above. > Interpreting Provider: Susana Graf MD on 09/28/2022 2:21 PM Narrative 09/28/2022 2:21 PM CDT PROCEDURE: ??MRI BRAIN WWO CONTRAST, MRI THORACIC SPINE WWO CONT, MRI CERVICAL SPINE WWO CONT, DATE/TIME OF EXAM: ??09/28/2022 12:10 AM, LOCATION [facility] INDICATION: G37.3: Transverse myelitis (CMS/HCC) ADDITIONAL CLINICAL INFORMATION: Ordering Provider Reason For Exam: ??r/o plaque (accession [id number]), transvere myelitis followup (accession [id number]), transvrse myelitis (accession [id number]) Technologist Note: ??Does the patient have metal implants or stents?->No Additional: ??None. CONTRAST: ??GADOBUTROL 1 MMOL/ML IV SSM SO:7 mL EXAMINATION: 1.Magnetic resonance imaging (MRI) of the brain without and with contrast 2.MRI of the cervical and thoracic spine without and with contrast TECHNIQUE: MRI of the brain, cervical and thoracic spine was performed prior to and following the uneventful administration of 7 mL intravenous GADAVIST contrast according to standard protocol. COMPARISON: MRI of the lumbar spine from 03/12/2019. FINDINGS: Brain: No evidence of acute or chronic hemorrhage is identified. No evidence of acute cerebral infarction is seen. There is mild cerebral volume loss with associated ex vacuo ventricular dilatation. No mass effect or midline shift is seen. Abnormal FLAIR signal with subtle edema and abnormal enhancement is identified in the right superior cerebellar peduncle, (series 6, image 15, series 10, image 28, series 15, image 21, and series 16, image 8). No enhancing lesions are otherwise identified. The pituitary height measures approximately 4.3 mm. The corpus callosum and sella appear otherwise grossly unremarkable. The posterior fossa and brainstem appear otherwise grossly unremarkable. The visualized portions of the orbits appear grossly unremarkable. There is mild paranasal sinus disease. Retained secretions in the left maxillary sinus. There is mild fluid signal in the mastoid air cells bilaterally.. Normal flow voids are demonstrated in the carotid arteries and basilar artery. The calvarium appears normal. Cervical spine: Relative straightening of the cervical lordosis. The alignment is otherwise maintained. Vertebral bodies are normal in height without evidence of compression fractures. Heterogenous marrow signal with associated endplate degenerative changes, worst at C4 the C5 and C5-C6, C6-C7. The bone marrow signal appear otherwise grossly unremarkable. The craniocervical junction appears normal. Minimal cord abutment at multiple levels. The spinal cord appears otherwise grossly unremarkable. Minimal patchy enhancement in the posterior and perhaps the lateral aspects of the cervical cord. For reference, minimal patchy enhancement is identified at the level of the inferior aspect of C4, (series 10, image 22).. There is associated faint T2 hyperintensity in the left posterior aspect of the cord, (series 5, image 22). Focal patchy enhancement in the posterior right aspect of the cord with associated subtle T2/STIR hyperintensity are noted at the C6 level, (series 4, image 9, series 9, image 9, and series 5, image 30). There is mild disc height loss at [...] disc bulge. Mild hypertrophy of the ligamentum flavum.. Mild spinal canal stenosis. Mild bilateral facet [...] neural foramina are patent. Thoracic spine: The alignment is normal. Vertebral bodies are normal in height without evidence of compression fractures. Marrow signal intensity is normal. The spinal cord appears normal. Punctate enhancement around the thoracic cord likely vascular in nature. Otherwise, no abnormal enhancement is identified. There is mild degenerative disc disease. No significant central canal stenosis is seen. The facets appear normal. No neural foraminal stenosis is seen. No soft tissue abnormality is identified. Procedure Note Susana Graf MD - 09/28/2022 PROCEDURE: MRI BRAIN WWO CONTRAST, MRI THORACIC SPINE WWO CONT, MRI CERVICAL SPINE WWO CONT, DATE/TIME OF EXAM: 09/28/2022 12:10 AM, LOCATION [facility] INDICATION: G37.3: Transverse myelitis (CMS/HCC) ADDITIONAL CLINICAL INFORMATION: Ordering Provider Reason For Exam: r/o plaque (accession [id number]), transvere myelitis followup (accession [id number]), transvrse myelitis (accession [id number]) Technologist Note: Does the patient have metal implants or stents?->No Additional: None. CONTRAST: GADOBUTROL 1 MMOL/ML IV SSM SO:7 mL EXAMINATION: 1.Magnetic resonance imaging (MRI) of the brain without and withcontrast 2.MRI of the cervical and thoracic spine without and with contrast TECHNIQUE: MRI of the brain, cervical and thoracic spine was performed prior to and following the uneventful administration of 7 mL intravenous GADAVIST contrast according to standard protocol. COMPARISON: MRI of the lumbar spine from 03/12/2019. FINDINGS: Brain: No evidence of acute or chronic hemorrhage is identified. No evidence of acute cerebral infarction is seen. There is mild cerebral volume losswith associated ex vacuo ventricular dilatation. No mass effect or midlineshift is seen. Abnormal FLAIR signal with subtle edema and abnormalenhancement is identified in the right superior cerebellar peduncle, (series 6,image 15, series 10, image 28, series 15, image 21, and series 16, image 8).No enhancing lesions are otherwise identified. The pituitary heightmeasures approximately 4.3 mm. The corpus callosum and sella appear otherwise grossly unremarkable. The posterior fossa and brainstem appear otherwise grossly unremarkable. The visualized portions of the orbits appear grossly unremarkable. Thereis mild paranasal sinus disease. Retained secretions in the left maxillary sinus. There is mild fluid signal in the mastoid air cells bilaterally.. Normal flow voids are demonstrated in the carotid arteries and basilar artery. The calvarium appears normal. Cervical spine: Relative straightening of the cervical lordosis. The alignment isotherwise maintained. Vertebral bodies are normal in height without evidence of compression fractures. Heterogenous marrow signal with associatedendplate degenerative changes, worst at C4 the C5 and C5-C6, C6-C7. The bonemarrow signal appear otherwise grossly unremarkable. The craniocervicaljunction appears normal. Minimal cord abutment at multiple levels. The spinalcord appears otherwise grossly unremarkable. Minimal patchy enhancement inthe posterior and perhaps the lateral aspects of the cervical cord. For reference, minimal patchy enhancement is identified at the level of the inferior aspect of C4, (series 10, image 22).. There is associated faintT2 hyperintensity in the left posterior aspect of the cord, (series 5,image 22). Focal patchy enhancement in the posterior right aspect of the cord with associated subtle T2/STIR hyperintensity are noted at the C6 level, (series 4, image 9, series 9, image 9, and series 5, image 30). There is mild disc height loss at [...] Diffuse disc bulge. Mild hypertrophy of the ligamentumflavum.. Mild spinal canal stenosis. Mild bilateral facet [...] neural foramina are patent. Thoracic spine: The alignment is normal. Vertebral bodies are normal in height without evidence of compression fractures. Marrow signal intensity is normal.The spinal cord appears normal. Punctate enhancement around the thoraciccord likely vascular in nature. Otherwise, no abnormal enhancement is identified. There is mild degenerative disc disease. No significant central canal stenosis is seen. The facets appear normal. No neural foraminal stenosisis seen. No soft tissue abnormality is identified. IMPRESSION: 1.Abnormal FLAIR signal and abnormal enhancement involving the right superior cerebellar peduncle. Findings are nonspecific howeverconcerning for progressive supranuclear palsy, (PSP). Other differential considerations are not excluded. 2.Minimal foci of patchy abnormal signal and enhancement predominantlyin the posterior and lateral aspects of the cervical cord at the level ofC4 and C6. Findings are nonspecific and could be seen in the setting PSP or represent sequela of patient's prior transverse myelitis. Clinical correlation is recommended. Please correlate with prior imaging if available. 3.Minimal punctate enhancement around the thoracic cord likely vascularin nature. Otherwise, no abnormal enhancement in the thoracic spine. 4.Multilevel degenerative disc and joint disease as outlined above. > Interpreting Provider: Susana Graf MD on 09/28/2022 2:21 PM Jessica Crawford MD MR ORDERABLES * NMO/AQP4 FACS AB RFLX TITER (09/27/2022 9:20 PM CDT) See Scanned Document SEE SCANNED REPORT 10/05/2022 5:57 PM WORK [employer] [facility] REF LAB NON INTERF Blood BLOOD SPECIMEN / Unknown Venipuncture / Unknown 09/27/2022 9:20 PM CDT 09/27/2022 9:25 PM CDT Jessica Crawford MD LAB - CHEMISTRY ORDE [facility]REA [facility] REF LAB NON INTERF [address] [place] [address], [facility] [phone] * (ABNORMAL) COMPREHENSIVE METABOLIC PANEL (09/27/2022 9:20 PM CDT) BUN 22 7 - 26 mg/dL 09/27/2022 9:55 PM [facility] Creatinine 0.74 0.71 - 1.16 mg/dL 09/27/2022 9:55 PM [facility] Sodium 135(L) 136 - 145 mmol/L 09/27/2022 9:55 PM [facility] Potassium 4.0 3.5 - 4.5 mmol/L 09/27/2022 9:55 PM [facility] Chloride 102 98 - 107 mmol/L 09/27/2022 9:55 PM [facility] CO2 25 22 - 29 mmol/L 09/27/2022 9:55 PM [facility] Glucose 110 70 - 115 mg/dL 09/27/2022 9:55 PM [facility] Calcium 9.0 8.4 - 10.2 mg/dL 09/27/2022 9:55 PM [facility] Protein Total 6.7 6.0 - 8.3 g/dL 09/27/2022 9:55 PM [facility] Albumin 3.4 3.4 - 5.0 g/dL 09/27/2022 9:55 PM [facility] Bilirubin Total 0.3 0.2 - 1.2 mg/dL 09/27/2022 9:55 PM [facility] Alkaline Phosphatase 85 40 - 150 U/L 09/27/2022 9:55 PM [facility] ALT 98(H) 5 - 55 U/L 09/27/2022 9:55 PM [facility] AST 29 5 - 34 U/L 09/27/2022 9:55 PM [facility] Anion Gap 12 8 - 18 09/27/2022 9:55 PM [facility] BUN/Creatinine Ratio 30(H) 7 - 23 09/27/2022 9:55 PM [facility] Osmolality Calculated 284 270 - 300 mOsm/kg 09/27/2022 9:55 PM [facility] Albumin/Globulin Ratio 1.0(L) 1.1 - 2.3 09/27/2022 9:55 PM [facility] eGFR by CKD-EPI >90 >=90 mL/min/1.7 3 m2 09/27/2022 9:55 PM [facility] Blood BLOOD SPECIMEN / Unknown Venipuncture / Unknown 09/27/2022 9:20 PM CDT 09/27/2022 9:27 PM CDT Jessica Crawford MD LAB - CHEMISTRY [facility] Organization Address City/State/[facility] Co de Phone Number [facility] [address] [place] [address], [facility] [phone] * (ABNORMAL) CBC W AUTO DIFFERENTIAL (09/27/2022 9:20 PM CDT) WBC 19.6(H) 3.5 - 10.5 10? 3 /uL 09/27/2022 9:34 PM [facility] RBC 4.49 4.30 - 5.70 10? 6 /uL 09/27/2022 9:34 PM [facility] Hemoglobin 13.3 12.0 - 17.6 g/dL 09/27/2022 9:34 PM [facility] Hematocrit 39.9 35.2 - 51.7 % 09/27/2022 9:34 PM [facility] MCV 88.9 80.7 - 98.3 fL 09/27/2022 9:34 PM [facility] MCH 29.6 26.7 - 34.0 pg 09/27/2022 9:34 PM [facility] MCHC 33.3 30.8 - 35.9 g/dL 09/27/2022 9:34 PM [facility] RDW-SD 45.1 36.0 - 50.0 fL 09/27/2022 9:34 PM [facility] RDW-CV 14.1 11.2 - 14.8 % 09/27/2022 9:34 PM [facility] Platelet Count 299 150 - 400 10? 3 /uL 09/27/2022 9:34 PM [facility] MPV 9.5 9.4 - 12.9 fL 09/27/2022 9:34 PM [facility] nRBC Absolute 0.00 0 10? 3 /uL 09/27/2022 9:34 PM [facility] nRBC Auto 0.0 0 /100 WBC 09/27/2022 9:34 PM [facility] Neutrophils % 75.5(H) 35.0 - 70.0 % 09/27/2022 9:34 PM [facility] Lymphocytes % 13.3(L) 20.0 - 43.0 % 09/27/2022 9:34 PM [facility] Monocytes % 6.9 5.0 - 13.0 % 09/27/2022 9:34 PM [facility] Eosinophils % 0.5 0.0 - 6.0 % 09/27/2022 9:34 PM [facility] Basophil % 0.4 0.0 - 2.0 % 09/27/2022 9:34 PM [facility] Neutrophils Absolute 14.79(H) 1.60 - 7.00 10? 3 /uL 09/27/2022 9:34 PM [facility] Lymphocyte Absolute 2.61 1.10 - 3.90 10? 3 /uL 09/27/2022 9:34 PM [facility] Monocytes Absolute 1.35(H) 0.26 - 1.07 10? 3 /uL 09/27/2022 9:34 PM [facility] Eosinophils Absolute 0.09 0.00 - 0.47 10? 3 /uL 09/27/2022 9:34 PM CDT [facility] Basophils Absolute 0.07 0.00 - 0.08 10? 3 /uL 09/27/2022 9:34 PM CDT [facility] Immature Granulocytes % 3.4(H) 0.0 - 1.0 % 09/27/2022 9:34 PM T [facility] Immature Granulocytes Absolute 0.67 09/27/2022 9:34 PM T [facility] Blood BLOOD SPECIMEN / Unknown Venipuncture / Unknown 09/27/2022 9:20 PM CDT 09/27/2022 9:27 PM CDT Jessica Crawford MD LAB - HEMATOLOGY ORD ERABLES [facility] [address] [place] [address], [facility] [phone] documented in this encounter Visit Diagnoses Diagnosis Transverse myelitis (HCC)- Primary Other causes of myelitis Transverse myelitis (HCC) Other causes of myelitis documented in this encounter Administered Medications Inactive Administered Medications - up to 3 most recent administrations Medication Order MAR Action Action Date Dose Rate Site 0.9% NaCl injection 1-10 mL 1-10 mL, Intracatheter, PRN, Other, peripheral line flush, Starting on Fri09/27/22 at 2356, Until Fri10/01/22 at 1721, Flush peripheral IV catheter with 1-10 mL of normal saline before and after medications and prn to clear blood from the line or to verify patency. 0.9% NaCl injection 3 mL 3 mL, Intracatheter, EVERY 8 HOURS, First dose on 09/28/22 at 0030, Until Discontinued, Flush peripheral IV catheter with 3 mL of normal saline every 8 hours. $ Given 10/01/2022 6:02 AM [employer] 3 mL $ Given 09/30/2022 9:45 PM [employer] 3 mL $ Given 09/30/2022 1:12 PM [employer] 3 mL acetaminophen (Tylenol) tablet 650 mg 650 mg, Oral, EVERY 4 HOURS PRN, Headache, Starting on Fri10/01/22 at 1347, Until Fri10/01/22 at 1721, Patient preference for lesser PRN pain meds may be honored when the patient requests a less strong medication, a lower dose, or a less intrusive route of administration when the lesser drug, dose and route have been ordered for the patient. This patient request must be documented in the MAR. $ Given 10/01/2022 2:28 PM [employer] 650 m g albuterol HFA (Proventil; Ventolin; Proair) 108 (90 Base) MCG/ACT inhaler 2 puff 2 puff, Inhalation, EVERY 4 HOURS PRN, Shortness of Breath, Wheezing, Starting on 09/28/22 at 1513, Until Fri10/01/22 at 1721, Shake well before using. WASTE DISPOSAL INSTRUCTION: Send to Pharmacy for Disposal. ciprofloxacin (Cipro) tablet 500 mg 500 mg, Oral, EVERY 12 HOURS, 14 doses, First dose (after last modification) on 09/30/22 at 1230, Last dose on Fri10/06/22 at 2100, Take with or without food. Take at least 2 hours before or 6 hours after sucralfate, metal cations such as iron, multivitamins with zinc, antacids containing aluminum, magnesium, or didanosine buffered tablets or powder for oral solution. Do not take with milk, yogurt, or calcium-fortified juice. , Indication for anti-infective therapy: Suspected infection, Site of anti-infective therapy: Urine/Genitourinary $ Given 10/01/2022 8:18 AM WORK [employer] 500 mg $ Given 09/30/2022 9:44 PM [employer] 500 mg $ Given 09/30/2022 1:11 PM [employer] 500 mg enoxaparin (Lovenox) injection 40 mg 40 mg, Subcutaneous, DAILY, First dose on 09/28/22 at 0900, Until Discontinued, (for prefilled syringes) do not expel air bubble from the syringe prior to the injection Remind Patient to not rub injection site. Could cause hematoma. $ Given 10/01/2022 8:18 AM WORK [employer] 40 mg Ab dominal Tissue $ Given 09/30/2022 8:55 AM [employer] 40 mg Ab dominal Tissue $ Given 09/29/2022 8:21 AM [employer] 40 mg Ab d Left Lower Quadrant gadobutrol (Gadavist) injection Intravenous, CONTRAST ONCE, Starting on Fri09/27/22 at 2242, Until 09/28/22 at 0743 $ Given - Contrast 09/27/2022 11:04 PM CDT 7 mL gadobutrol (Gadavist) injection Intravenous, CONTRAST ONCE, Starting on Fri09/29/22 at 0042, Until Tu10/01/22 at 0041 $ Given - Contrast 09/29/2022 1:01 AM CDT 7 mL immune globulin (GAMUNEX-C) 10 % 75 g 75 g (rounded from 73 g = 1 g/kg ? 73 kg Hilliard weight), at 0-999 mL/hr, Intravenous, CONTINUOUS, Starting on Fri09/29/22 at 1000, Until Fri09/29/22 at 1559, Actual Weight for Rate calculation: Wt 70.8 kg (156 lb) using 10% product, starting at 0.5 mg/kg/min. Instructions based on CrCl > 60 mL/min. Initiate IVIG at 21 mL/hr with VTBI: 10.62 mL for 30 minutes. If tolerated, increase rate to 42 mL/hr with VTBI: 21.24 mL for 30 min. If tolerated, increase rate to 85 mL/hr with VTBI: 42.48 mL for 30 min. If tolerated, increase rate to 170 mL/hr with VTBI: 84.96 mL for 30 min. If tolerated, increase rate to 340 mL/hr until contents completely infused. See IVIG Monitoring order in Nursing Communications for monitoring instructions. Do NOT infuse with concurrent fluids.?? IVIG should be infused alone. $ New Bag/Syringe 09/29/2022 1:24 PM [employer] 75 g 10.5 mL/hr Rate Change 09/29/2022 12:44 PM [employer] 10.5 mL/hr $ New Bag/Syringe 09/29/2022 12:07 PM [employer] 75 g 21 mL /hr immune globulin (GAMUNEX-C) 10 % 75 g 75 g, at 0-999 mL/hr, Intravenous, CONTINUOUS, Starting on Fri09/30/22 at 1000, Until Fri09/30/22 at 1559, Actual Weight for Rate calculation: Wt 70.8 kg (156 lb) using 10% product, starting at 0.5 mg/kg/min. Instructions based on CrCl > 60 mL/min. Initiate IVIG at 21 mL/hr with VTBI: 10.62 mL for 30 minutes. If tolerated, increase rate to 42 mL/hr with VTBI: 21.24 mL for 30 min. If tolerated, increase rate to 85 mL/hr with VTBI: 42.48 mL for 30 min. If tolerated, increase rate to 170 mL/hr with VTBI: 84.96 mL for 30 min. If tolerated, increase rate to 340 mL/hr until contents completely infused. See IVIG Monitoring order in Nursing Communications for monitoring instructions. Do NOT infuse with concurrent fluids.?? IVIG should be infused alone. Rate Change 09/30/2022 3:27 PM [employer] 3 40 mL/hr Rate Change 09/30/2022 3:01 PM [employer] 170 mL/hr Rate Change 09/30/2022 2:28 PM [employer] 85 mL/hr lidocaine (Xylocaine) 2 % injection Infiltration, ONCE, 1 dose, On 09/30/22 at 1500 $ Admin. by Other Provider 09/30/2022 4:45 PM [employer] LORazepam (Ativan) tablet 0.5 mg 0.5 mg, Oral, ONCE PRN, Anxiety, to be given 20 minutes prior to MRI test, 1 dose, Starting on 09/28/22 at 1801, Until 09/28/22 at 2327 $ Given 09/28/2022 11:27 PM CDT 0.5 mg midazolam (Versed) injection 2 mg 2 mg, Intravenous, ONCE, 1 dose, On 09/30/22 at 1445, For lumbar puncture $ Admin. by Other Provider 09/30/2022 4:45 PM [employer] 2 mg pantoprazole EC (Protonix) tablet 40 mg 40 mg, Oral, DAILY, First dose on 09/28/22 at 0900, Until Discontinued, Do not crush, chew, or cut in half. $ Given 10/01/2022 8:18 AM [employer] 40 mg $ Given 09/30/2022 8:55 AM [employer] 40 mg $ Given 09/29/2022 8:21 AM [employer] 40 mg polyethylene glycol 3350 (Miralax) packet 17 g 17 g, Oral, DAILY, First dose on 09/28/22 at 0900, Until Discontinued, Mix in 8 ounces of water, juice, soda, coffee or tea prior to administration $ Given 10/01/2022 8:18 AM [employer] 17 g $ Given 09/30/2022 8:55 AM [employer] 17 g $ Given 09/28/2022 9:46 AM CDT 17 g zolpidem (Ambien) tablet 5 mg 5 mg, Oral, AT BEDTIME PRN, Insomnia, Starting on Fri09/27/22 at 2359, Until Fri10/01/22 at 1721 $ Given 09/30/2022 9:44 PM [employer] 5 mg $ Given 09/29/2022 1:24 AM CDT 5 mg documented in this encounter Active and Recently Administered Medications Due to Daylight Saving Time, this section may contain times in both CDT and [employer]. Scheduled Medication Order 09/29/2022 09/30/2022 10/01/2022 0.9% NaCl injection 3 mL(Linked Group 1) 3 mL, Intracatheter, EVERY 8 HOURS, First dose on 09/28/22 at 0030, Until Discontinued, Flush peripheral IV catheter with 3 mL of normal saline every 8 hours. 0600 (Canceled Entry - Provider: Venecia Lowry RN)1359 ($ Given - Provider: Marquez Dove RN)2209 ($ Given - Provider: Krysten Santoyo RN) 0534 ($ Given - Provider: Krysten Santoyo RN)1312 ($ Given - Provider: Yulissa Welhc RN)2145 ($ Given - Provider: Krysten Santoyo RN) 0602 ($ Given - Provider: Krysten Santoyo RN)1220 (Not Administered - Provider: Yulissa Welch RN - Reason: Loss of Access) ciprofloxacin (Cipro) tablet 500 mg 500 mg, Oral, EVERY 12 HOURS, 14 doses, First dose (after last modification) on 09/30/22 at 1230, Last dose on 10/06/22 at 2100, Take with or without food. Take at least 2 hours before or 6 hours after sucralfate, metal cations such as iron, multivitamins with zinc, antacids containing aluminum, magnesium, or didanosine buffered tablets or powder for oral solution. Do not take with milk, yogurt, or calcium-fortified juice. , Indication for anti-infective therapy: Suspected infection, Site of anti-infective therapy: Urine/Genitourinary 1311 ($ Given - Provider: Yulissa Welch RN)2144 ($ Given - Provider: Krysten Santoyo RN) 0818 ($ Given - Provider: Yulissa Welch RN) enoxaparin (Lovenox) injection 40 mg 40 mg, Subcutaneous, DAILY, First dose on Fri09/28/22 at 0900, Until Discontinued, (for prefilled syringes) do not expel air bubble from the syringe prior to the injection Remind Patient to not rub injection site. Could cause hematoma. 0821 ($ Given - Provider: Marquez Dove RN) 0855 ($ Given - Provider: Yulissa Welch RN) 0818 ($ Given - Provider: Yulissa Welch RN) gadobutrol (Gadavist) injection () Intravenous, CONTRAST ONCE, Starting on Fri09/29/22 at 0042, Until Fri10/01/22 at 0041 0101 ($ Given - Contrast - Provider: Laurie Bonilla) lidocaine (Xylocaine) 2 % injection (COMPLETED) Infiltration, ONCE, 1 dose, On Fri09/30/22 at 1500 1645 ($ Admin. by Other Provider - Provider: Yulissa Welch RN - Comment: given during LP) midazolam (Versed) injection 2 mg (COMPLETED) 2 mg, Intravenous, ONCE, 1 dose, On Fri09/30/22 at 1445, For lumbar puncture 1645 ($ Admin. by Other Provider - Provider: Yulissa Welch RN - Comment: given during LP) pantoprazole EC (Protonix) tablet 40 mg 40 mg, Oral, DAILY, First dose on Fri09/28/22 at 0900, Until Discontinued, Do not crush, chew, or cut in half. 0821 ($ Given - Provider: Marquez Dove RN) 0855 ($ Given - Provider: Yulissa Welch RN) 0818 ($ Given - Provider: Yulissa Welch RN) polyethylene glycol 3350 (Miralax) packet 17 g 17 g, Oral, DAILY, First dose on Fri09/28/22 at 0900, Until Discontinued, Mix in 8 ounces of water, juice, soda, coffee or tea prior to administration 0823 (Not Administered - Provider: Marquez Dove RN - Reason: Patient Condition - Comment: pt stooling freq) 0806 ($ Given - Provider: Yulissa Welch, THOM) 0818 ($ Given - Provider: Yulissa Welch, THOM) Continuous Medication Order 09/29/2022 09/30/2022 10/01/2022 immune globulin (GAMUNEX-C) 10 % 75 g () 75 g (rounded from 73 g = 1 g/kg ? 73 kg Hilliard weight), at 0-999 mL/hr, Intravenous, CONTINUOUS, Starting on 09/29/22 at 1000, Until Fri09/29/22 at 1559, Actual Weight for Rate calculation: Wt 70.8 kg (156 lb) using 10% product, starting at 0.5 mg/kg/min. Instructions based on CrCl > 60 mL/min. Initiate IVIG at 21 mL/hr with VTBI: 10.62 mL for 30 minutes. If tolerated, increase rate to 42 mL/hr with VTBI: 21.24 mL for 30 min. If tolerated, increase rate to 85 mL/hr with VTBI: 42.48 mL for 30 min. If tolerated, increase rate to 170 mL/hr with VTBI: 84.96 mL for 30 min. If tolerated, increase rate to 340 mL/hr until contents completely infused. See IVIG Monitoring order in Nursing Communications for monitoring instructions. Do NOT infuse with concurrent fluids.?? IVIG should be infused alone. 1207 ($ New Bag/Syringe - Provider: Marquez Dove RN)1244 (Rate Change - Provider: Marquez Dove RN)1324 ($ New Bag/Syringe - Provider: Marquez Dove, RN) immune globulin (GAMUNEX-C) 10 % 75 g () 75 g, at 0-999 mL/hr, Intravenous, CONTINUOUS, Starting on 09/30/22 at 1000, Until Fri09/30/22 at 1559, Actual Weight for Rate calculation: Wt 70.8 kg (156 lb) using 10% product, starting at 0.5 mg/kg/min. Instructions based on CrCl > 60 mL/min. Initiate IVIG at 21 mL/hr with VTBI: 10.62 mL for 30 minutes. If tolerated, increase rate to 42 mL/hr with VTBI: 21.24 mL for 30 min. If tolerated, increase rate to 85 mL/hr with VTBI: 42.48 mL for 30 min. If tolerated, increase rate to 170 mL/hr with VTBI: 84.96 mL for 30 min. If tolerated, increase rate to 340 mL/hr until contents completely infused. See IVIG Monitoring order in Nursing Communications for monitoring instructions. Do NOT infuse with concurrent fluids.?? IVIG should be infused alone. 1759 (Rate Change - Provider: Marquez Dove RN)2042 (Current Rate - Provider: Krysten Santoyo RN - Comment: continuing current dose of 75 at 21 ml/hr.third bottle IVIG hooked(20 g /200ml))221 (Rate Change - Provider: Krysten Santoyo RN - Comment: increasing rate to 42ml/hr. still the thrid bottle of IVIG(20mg /200ml))2324 (Rate Change - Provider: Krysten Santoyo RN - Comment: rate increased. still third bottle of IVIG) 0026 (Rate Change - Provider: Krysten Santoyo RN)0041 (Current Rate - Provider: Krysten Santoyo RN - Comment: 40 G/400ML bottle was hooked . 4th bottle.)1319 ($ New Bag/Syringe - Provider: Yulissa Welch RN - Comment: 21ml for 30 mins)1355 (Rate Change - Provider: Yulissa Welch RN - Comment: rate change with 21.2 ml hr)1428 (Rate Change - Provider: Yulissa Welch RN - Comment: volume 42)1501 (Rate Change - Provider: Yulissa Welch RN)1527 (Rate Change - Provider: Yulissa Welch RN) PRN Medication Order 09/29/2022 09/30/2022 10/01/2022 0.9% NaCl injection 1-10 mL(Linked Group 1) 1-10 mL, Intracatheter, PRN, Other, peripheral line flush, Starting on Fri09/27/22 at 2356, Until Fri10/01/22 at 1721, Flush peripheral IV catheter with 1-10 mL of normal saline before and after medications and prn to clear blood from the line or to verify patency. acetaminophen (Tylenol) tablet 650 mg 650 mg, Oral, EVERY 4 HOURS PRN, Headache, Starting on Fri10/01/22 at 1347, Until Fri10/01/22 at 1721, Patient preference for lesser PRN pain meds may be honored when the patient requests a less strong medication, a lower dose, or a less intrusive route of administration when the lesser drug, dose and route have been ordered for the patient. This patient request must be documented in the MAR. 1428 ($ Given - Provider: Yulissa Welch RN) albuterol HFA (Proventil; Ventolin; Proair) 108 (90 Base) MCG/ACT inhaler 2 puff 2 puff, Inhalation, EVERY 4 HOURS PRN, Shortness of Breath, Wheezing, Starting on Fri09/28/22 at 1513, Until Fri10/01/22 at 1721, Shake well before using. WASTE DISPOSAL INSTRUCTION: Send to Pharmacy for Disposal. bisacodyl (Dulcolax) suppository 10 mg 10 mg, Rectal, DAILY PRN, Constipation, Starting on Fri09/28/22 at 1513, Until Fri10/01/22 at 1721 zolpidem (Ambien) tablet 5 mg 5 mg, Oral, AT BEDTIME PRN, Insomnia, Starting on Fri09/27/22 at 2359, Until Fri10/01/22 at 1721 0124 ($ Given - Provider: Venecia Lowry RN) 2144 ($ Given - Provider: Krysten Santoyo RN) Linked Groups Order Group 1: SALINE LOCK, INSERT AND MAINTAIN (CANCELED) Routine, CONTINUOUS, Starting on Fri09/28/22 at 0000, Until Specified, New collection, Task Completed: Yes And 0.9% NaCl injection 3 mLJump to med 3 mL, Intracatheter, EVERY 8 HOURS, First dose on Fri09/28/22 at 0030, Until Discontinued, Flush peripheral IV catheter with 3 mL of normal saline every 8 hours. And 0.9% NaCl injection 1-10 mLJump to med 1-10 mL, Intracatheter, PRN, Other, peripheral line flush, Starting on Fri09/27/22 at 2356, Until Fri10/01/22 at 1721, Flush peripheral IV catheter with 1-10 mL of normal saline before and after medications and prn to clear blood from the line or to verify patency. documented in this encounter Care Teams Gis Database Administrator Relationship Specialty Start Date End Date Catia Atkins MD [facility] [place] [id number] PCP - General 06/28/19 documented as of this encounter
--- OUTSIDE RECORDS SUMMARY | 2024-12-04 20:30 | XMS_ITS | Encounter Summary ---
Author Organization [facility] Address [address] [place] [address] Care Team Providers Care Broom Handle Dipper Name Role Phone Titi Kitchen MD Primary Care Provider Reason for Visit * Reason Comments Rectal Bleeding Back Pain Needs physican refer ral Encounter Details Date Type Department Care Team (Late st Contact Info) Description 11/11/2017 1:00 PM SCHOOL TEACHER Office Visit [facility] at the [address] [place] [address] Titi Kitchen MD [address] [place] [address] [address] [place], [place] [id number] Internal hemorrhoids (Primary Dx); DDD (degenerative disc disease), lumbar; Adult general medical exam; Screening PSA (prostate specific antigen); BMI 25.0-25.9,adult Social History Tobacco Use Types Packs/Day Years Used Date Smoking Tobacco: Every Day Cigarettes 1 35 Smokeless Tobacco: Never Alcohol Use Standard Drinks/Week Comments Yes 0 (1 standard drink = 0.6 oz pur e alcohol) 1/2 pint per week Sex and Gender Information Value Date Recorded Sex Assigned at Not on file Legal Sex Male 9:02 PM SCHOOL TEACHER Gender Identity Not on file Sexual Orientation Not on file 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 file Not on file documented as of this encounter Last Filed Vital Signs Vital Sign Reading Time Taken Comments Blood Pressure 110/78 11/11/2017 1:08 PM SCHOOL TEACHER Pulse 64 11/11/2017 1:08 PM SCHOOL TEACHER Temperature - - Respiratory Rate - - Oxygen Saturation - - Inhaled Oxygen Concentration - - Weight 79 kg (174 lb 3.2 oz) 11/11/2017 1:08 PM SCHOOL TEACHER Height 176.5 cm (5' 9.5) 11/11/2017 1:08 PM SCHOOL TEACHER Body Mass Index 25.36 11/11/2017 1:08 PM SCHOOL TEACHER documented in this encounter Progress Notes * Titi Kitchen MD - 11/11/2017 1:00 PM CST Subjective/Objective Patient ID: Binu Justin is a 56 y.o. male. Diagnoses and all orders for this visit: Internal hemorrhoids (Primary) Comments: Referral to colorectal surgeon. Orders: - Ambulatory referral to Colorectal Surgery; Future DDD (degenerative disc disease), lumbar Comments: Referral to Dr. Brent Menendez. Orders: - Ambulatory referral to Orthopedic Surgery; Future Adult general medical exam Comments: Well visit. Check CBC, CMP and FLP. Orders: - CBC without differential; Future - Comprehensive metabolic panel; Future - Lipid panel; Future Screening PSA (prostate specific antigen) Comments: Check PSA. Orders: - PSA screen; Future BMI 25.0-25.9,adult Comments: Pt trying to follow reduced calorie diet and routine exercise plan. Chief Complaint Chief Complaint Patient presents with ??? Rectal Bleeding ??? Back Pain Needs physican referral HPI Back Pain This is a chronic problem. Episode onset: about 10 years ago. The problem occurs constantly. The problem has been gradually worsening since onset. The pain is present in the lumbar spine. The pain does not radiate. The pain is moderate. The pain is worse during the day. Exacerbated by: climbing ladders. Pertinent negatives include no abdominal pain, bowel incontinence or chest pain. (Rectal bleeding) He has tried home exercises for the symptoms. The treatment provided moderate relief. Rectal Bleeding This is a recurrent problem. The current episode started more than 1 year ago. The problem occurs intermittently. The problem has been gradually worsening. Pertinent negatives include no abdominal pain, change in bowel habit, chest pain, fatigue or nausea. Exacerbated by: heavy labor. He has tried nothing for the symptoms. Past 10 years, gradual worsening. 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 Using inverter at home. Sees Dr. Menendez. Report DDD L4/5 Rectal bleeding. No OTC meds. Quit work July 01. Pain medication causing constipation and sedation. Previous PCP Dr. Hassan. Last visit about 2 years ago. Review of Systems Constitutional: Negative. Negative for activity change, appetite change, fatigue and unexpected weight change. HENT: Negative. Eyes: Negative. Respiratory: Negative. Negative for shortness of breath and wheezing. Cardiovascular: Negative. Negative for chest pain, palpitations and leg swelling. Gastrointestinal: Positive for blood in stool and hematochezia. Negative for abdominal pain, bowel incontinence, change in bowel habit, constipation, diarrhea, nausea and rectal pain. Endocrine: Negative. Genitourinary: Negative. Musculoskeletal: Positive for back pain. Skin: Negative. Allergic/Immunologic: Negative. Negative for immunocompromised state. Neurological: Negative. Hematological: Negative. Psychiatric/Behavioral: Negative. All other systems reviewed and are negative. Vitals: 11/11/17 1308 BP: 110/78 Pulse: 64 Physical Exam Constitutional: He is oriented to person, place, and time. He appears well- developed and well-nourished. HENT: Head: Normocephalic and atraumatic. Right Ear: External ear normal. Left Ear: External ear normal. Nose: Nose normal. Mouth/Throat: Oropharynx is clear and moist. Eyes: Conjunctivae and EOM are normal. Pupils are equal, round, and reactive to light. Neck: Normal range of motion. Neck supple. Cardiovascular: Normal rate, regular rhythm, S1 normal, S2 normal and normal heart sounds. Pulmonary/Chest: Effort normal and breath sounds normal. Abdominal: Soft. Bowel sounds are normal. He exhibits no mass. There is no hepatosplenomegaly. There is no tenderness. Genitourinary: Rectal exam shows internal hemorrhoid. Prostate is not enlarged. Genitourinary Comments: 2 to 3+ prostate; no nodules; L int hemorrhoid; normal rectal tone. Musculoskeletal: Normal range of motion. He exhibits no edema. Lymphadenopathy: He has no cervical adenopathy. Neurological: He is alert and oriented to person, place, and time. Skin: Skin is warm and dry. Psychiatric: He has a normal mood and affect. His behavior is normal. Vitals reviewed. OL TEACHER documented in this encounter Plan of Treatment Not on file documented as of this encounter Results * PSA screen (11/11/2017 2:13 PM SCHOOL TEACHER) Pathologist [facility] PSA-Total 1.0 0.1 - 4.0 ng/mL [facility] Blood specimen (specimen) 11/11/2017 2:13 PM SCHOOL TEACHER 11/11/2017 9:05 PM SCHOOL TEACHER Narrative [facility] - 11/11/2017 10:06 PM SCHOOL TEACHER us Titi Kitchen MD LAB BLOOD ORDERABLES Final Re sult [facility] Department [place] [address] * Lipid panel (11/11/2017 2:13 PM SCHOOL TEACHER) Pathologist [facility] Cholesterol 182 30 - 200 mg/dL [facility] Comment: Interpretive Data Desirable: ?<200 mg/dL Borderline high: ??200-239 mg/dL High: ? > or = 240 mg/dL Literature Reference: National Cholesterol Education Program (NCEP) Expert Panel on Detection, Evaluation, and Treatment of High Blood Cholesterol in Adults (Adult Treatment Panel III). ??Circulation 2004; 110:227. Current interpretive data was last revised on 2015. Triglycerides 103 0 - 150 mg/dL [facility] Comment: Interpretive Data Desirable: ? < 150 mg/dL Borderline High: ? 150 - 199 mg/dL High: ?200 - 499 mg/dL Very High: ? > or = 499 mg/dL Literature Reference: See Cholesterol Current interpretive data was last revised on 2015. HDL 50 >=40 mg/dL [facility] Comment: Interpretive Data Less than 40 mg/dL - low; A major risk factor for heart disease. Greater than or equal to 60 mg/dL - High; ??considered protective of heart disease. Literature Reference: See Cholesterol Current interpretive data was last revised on 2015. LDL, calculated 111 10 - 129 mg/dL [facility] Comment: Interpretive Data Optimal: ? < 100 mg/dL Near Optimal: ?100 - 129 mg/dL Borderline High: ?? 130 - 159 mg/dL High: ?160 - 189 mg/dL Very high: ? > or = 190 mg/dL Literature Reference: See Cholesterol Current interpretive data was last revised on 2015. Non-HDL Cholesterol 132 mg/dL [facility] Comment: Interpretive Data When triglycerides are >200 mg/dL, non-HDL C is a secondary target of therapy, with a goal 30 mg/dL higher than the identified LDL-C goal. Reference: ??See Cholesterol Reference. Current interpretive data was last revised 2015. Blood specimen (specimen) 11/11/2017 2:13 PM SCHOOL TEACHER 11/11/2017 9:05 PM SCHOOL TEACHER Narrative [facility] - 11/11/2017 10:18 PM SCHOOL TEACHER us Titi Kitchen MD LAB BLOOD ORDERABLES Final Re sult [facility] Department [place] [address] * (ABNORMAL) Comprehensive metabolic panel (11/11/2017 2:13 PM SCHOOL TEACHER) Sodium 141 135 - 145 mmol/L [facility] Potassium, pl 4.3 3.3 - 4.9 mmol/L [facility] CO2 29 22 - 32 mmol/L [facility] BUN 18 8 - 25 mg/dL [facility] Glucose 68(L) 70 - 199 mg/dL [facility] Comment: Interpretive Data Fasting glucose >/= 126 mg/dl is diagnostic for diabetes. ?? Fasting is defined as no caloric intake for at least 8 hours. Fasting glucose between 100 mg/dl to 125 mg/dl is diagnostic of prediabetes. In a patient with classic symptoms of hyperglycemia or hyperglycemic crisis, a random glucose >/= 200 mg/dl is diagnostic for diabetes. In the absence of unequivocal hyperglycemia, results should be confirmed by repeat testing. The classification and Diagnosis of Diabetes Diabetes Care 2017;40 (Suppl. 1):S11. Current interpretive data was last revised 2017. Creatinine 0.89 0.80 - 1.30 mg/dL [facility] Calcium 9.7 8.5 - 10.3 mg/dL [facility] Chloride 101 97 - 110 mmol/L [facility] Albumin 4.7 3.5 - 5.0 g/dL [facility] AST 18 10 - 50 Units/L [facility] ALT 21 7 - 55 Units/L [facility] Alk phos 104 40 - 130 Units/L [facility] Bilirubin, total 0.3 0.1 - 1.2 mg/dL [facility] Protein, pl 8.2 6.5 - 8.5 g/dL [facility] Anion gap 11 2 - 15 mmol/L [facility] Blood specimen (specimen) 11/11/2017 2:13 PM SCHOOL TEACHER 11/11/2017 9:05 PM SCHOOL TEACHER Narrative [facility] - 11/11/2017 10:18 PM SCHOOL TEACHER us Titi Kitchen MD LAB BLOOD ORDERABLES Final Re sult [facility] Department [place] [address] * CBC without differential (11/11/2017 2:13 PM SCHOOL TEACHER) WBC 8.70 3.80 - 9.90 K/cumm [facility] RBC 4.77 4.30 - 5.80 M/cumm [facility] Hgb 14.2 13.0 - 17.5 g/dL [facility] Hct 42.5 38.9 - 50.3 % [facility] MCV 89.1 81.3 - 96.4 fL [facility] MCH 29.8 27.1 - 33.3 pg [facility] MCHC 33.4 32.3 - 35.7 g/dL [facility] RDW CV 13.4 11.1 - 14.9 % [facility] RDW SD 43.9 35.7 - 48.1 fL [facility] NRBC 0.0 0.0 - 0.2 % [facility] NRBC abs 0.00 0.00 - 0.01 K/cumm [facility] Plt 261 150 - 400 K/cumm [facility] MPV 10.1 9.1 - 12.3 fL [facility] Blood specimen (specimen) 11/11/2017 2:13 PM SCHOOL TEACHER 11/11/2017 9:05 PM SCHOOL TEACHER Narrative [facility] - 11/11/2017 9:38 PM SCHOOL TEACHER us Titi Kitchen MD LAB BLOOD ORDERABLES Final Re sult [facility] Department [place] [address] documented in this encounter Visit Diagnoses Diagnosis Internal hemorrhoids- Primary Internal hemorrhoids without mention of complication DDD (degenerative disc disease), lumbar Degeneration of lumbar or lumbosacral intervertebral disc Adult general medical exam Unspecified general medical examination Screening PSA (prostate specific antigen) Special screening for malignant neoplasm of prostate BMI 25.0-25.9,adult documented in this encounter Care Teams Broom Handle Dipper Relationship Specialty Start Date End Date Titi Kitchen MD [facility] [address] Andrzej DEL ANGEL [address] [place] [id number] PCP - General Internal Medicine 09/11/17 11/13/17 documented as of this encounter
--- OUTSIDE RECORDS SUMMARY | 2024-12-04 20:30 | XMS_ITS | Encounter Summary ---
Author Organization [facility] Address [address] [place] [address] Care Team Providers Care Cement Finishing Supervisor Name Role Phone Titi Kitchen MD Primary Care Provider [phone] Encounter Details Date Type Department Care Team (Latest Contact Info) Description 10/03/2022 1:56 PM COMMERCIAL DOOR INSTALLER - 10/03/2022 11:59 PM COMMERCIAL DOOR INSTALLER Hospital Encounter [facility] Emergency, Room R Discharge Disposition: Discharge to home or self care Social History Tobacco Use Types Packs/Day Years Used Date Smoking Tobacco: Every Day Cigarettes 1 35 Smokeless Tobacco: Never Alcohol Use Standard Drinks/Week Comments Yes 0 (1 standard drink = 0.6 oz pur e alcohol) 1/2 pint per week Sex and Gender Information Value Date Recorded Sex Assigned at Not on file Legal Sex Male 9:02 PM COMMERCIAL DOOR INSTALLER Gender Identity Not on file Sexual Orientation Not on file 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
--- OUTSIDE RECORDS SUMMARY | 2024-12-04 20:30 | XMS_ITS | Clinical Summary ---
Author Organization [facility] Address [address] [address] Phone Care Team Providers Care Drawing In Hand Name Role Phone Titi Kitchen MD Primary Care Provider [phone] Allergies No known active allergies Medications No known medications Active Problems Problem Noted Date Diagnosed Date Occult blood in stools 04/06/2015 Lumbago 12/27/2014 Surgical History Surgery Date Site/Laterality Comments APPENDECTOMY Family History Medical History Relation Name Comments Kidney disease Mother Lung cancer Sister Relation Name Status Comments Brother Alive Father Alive Mother Sister Social History Tobacco Use Types Packs/Day Years Used Date Smoking Tobacco: Every Day Cigarettes 1 35 Smokeless Tobacco: Never Alcohol Use Standard Drinks/Week Comments Yes 0 (1 standard drink = 0.6 oz pur e alcohol) 1/2 pint per week Personal Safety Answer Date Recorded Getting School Help Needed Not on file 01/16 Sex and Gender Information Value Date Recorded Sex Assigned at Not on file Legal Sex Male 9:02 PM ABAP DEVELOPER Gender Identity Not on file Sexual Orientation Not on file 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 file Not on file Obstetrics History Last Filed Vital Signs Vital Sign Reading Time Taken Comments Blood Pressure 110/78 11/11/2017 1:08 PM ABAP DEVELOPER Pulse 64 11/11/2017 1:08 PM ABAP DEVELOPER Temperature - - Respiratory Rate - - Oxygen Saturation - - Inhaled Oxygen Concentration - - Weight 79 kg (174 lb 3.2 oz) 11/11/2017 1:08 PM ABAP DEVELOPER Height 176.5 cm (5' 9.5) 11/11/2017 1:08 PM ABAP DEVELOPER Body Mass Index 25.36 11/11/2017 1:08 PM ABAP DEVELOPER Plan of Treatment Health Maintenance Due Date Last Done Comments Hepatitis C Screening 1961 Pneumococcal vaccine <65 (1 of 2 - PCV) 1967 DTaP/Tdap/Td Vaccine (1 - Tdap) 1972 Hepatitis B Screening 1979 Regular Well Visit/Exam 18-64 1979 Zoster Vaccine (1 of 2) 2011 Depression Screening 11/11/2018 11/11/2017 Prostate Cancer Screening-PSA 11/11/2019 11/11/2017 Colon Cancer Screening-Colonoscopy 04/12/20252014 Colon Cancer Screening-CT Colonography Discontinued Colon Cancer Screening-DNA Stool Discontinued 04/12/20 Colon Cancer Screening-FIT Discontinued 04/12/2015 Colon Cancer Screening-Sigmoidoscopy Discontinued 03/25 Influenza Vaccine Discontinued Procedures Procedure Name Priority Date/Time Associated Diagnosis Comments PSA SCREEN Routine 11/11/2017 2:13 PM ABAP DEVELOPER Screening PSA (prostate specific antigen) COLONOSCOPY REPORT 04/12/2015 from Last 3 Months or Most Recently Relevant to Health Maintenance Results * PSA screen (11/11/2017 2:13 PM ABAP DEVELOPER) PSA-Total 1.0 0.1 - 4.0 ng/mL [facility] Blood specimen (specimen) 11/11/2017 2:13 PM ABAP DEVELOPER 11/11/2017 9:05 PM ABAP DEVELOPER Narrative [facility] - 11/11/2017 10:06 PM ABAP DEVELOPER Titi Kitchen MD LAB BLOOD ORDERABLES Final Re sult [facility] One [facility] Department [place] [address] * COLONOSCOPY REPORT (04/12/2015) Anatomical Region Laterality Modality Other Narrative 04/12/2015 Ordered by an unspecified provider. Celeste Provider GI PROCEDURE ORDERABLES F inal Result from Last 3 Months or Most Recently Relevant to Health Maintenance Insurance [facility] MEDICARE [facility] Care Teams Drawing In Hand Relationship Specialty Start Date End Date Titi Kitchen MD [address] [place] [address] DR Andrzej DEL ANGEL [address] [place] [id number] PCP - General Internal Medicine 11/27/17
--- OUTSIDE RECORDS SUMMARY | 2024-12-04 20:30 | XMS_ITS | Encounter Summary ---
Author Organization [facility] Facility Care Team Providers Care Sourcing Internship Name Role Phone Unavailable Primary Care Provider Unavailabl e Encounter Details Date Type Department Care Team (Latest Contact Info) Description 12/27/2014 10:37 AM NUTRITION AIDE - 12/27/2014 4:00 PM NUTRITION AIDE Hospital Encounter [facility] Kerry Cuellar, FAA CERTIFIED POWERPLANT MECHANIC [address] [facility] [address] [place] [address] Low back pain; Degeneration of lumbar or lumbosacral intervertebral disc; Effusion of lower leg joint Social History Tobacco Use Types Packs/Day Years Used Date Smoking Tobacco: Never Assessed Sex and Gender Information Value Date Recorded Sex Assigned at Not on file Legal Sex Male 9:02 PM NUTRITION AIDE Gender Identity Not on file Sexual Orientation Not on file documented as of this encounter Plan of Treatment Not on file documented as of this encounter Procedures Procedure Name Priority Date/Time Associated Diagnosis Comments KNEE RADIOGRAPHY, FRONTAL (AP), LATERAL, OBLIQUE Routine 12/27/2014 10:58 AM NUTRITION AIDE XR SPINE LUMBAR ROUTINE Routine 12/27/2014 10:58 AM NUTRITION AIDE documented in this encounter Results * XR Lumbar Spine Routine (12/27/2014 10:58 AM NUTRITION AIDE) Anatomical Region Laterality Modality L-spine N/A Radiographic Zaynab ging 12/27/2014 10:5 8 AM NUTRITION AIDE Narrative 12/27/2014 11:29 AM NUTRITION AIDE ANA LILIA LUIS M.D. FINAL REPORT ACC# ??Date Time ??Exam [id number] Dec 27, 2014 10:58:00 [id number] Spine Lumbar min 4 views [id number] Dec 27, 2014 10:58:00 [id number] Knee 3 views R EXAMINATION: ? 1. Lumbar spine minimum 4 views. 2. Right knee, 3 views. HISTORY: ??Lumbar spondylosis and knee pain FINDINGS: ??Three-view examination of the right knee includes a Darden and Merchant projection of both knees. There are no prior studies for comparison. The knee joint spaces are normal and symmetric. On the right, there is no fracture or bone abnormality, but there is a small effusion. Four view examination of the lumbar spine includes lateral projections in neutral position, flexion, and extension. Comparison is to a study from 16 July 2008. In neutral position, alignment is normal. There is moderate degenerative disc disease from L3 through L5. There are no compression fractures. Motion is normal with flexion and extension. Compared to the prior examination, the degenerative disc disease has progressed. IMPRESSION: ?? 1. Progressive moderate degenerative disc disease, L3-L5. 2. Small right knee effusion. Requested By: KERRY LEWIS Dictated By: ?? ANA LILIA LUIS M.D. ??on Dec ??2014 11:29A This document has been electronically signed by: ANA LILIA LUIS M.D. on Dec 27 2014 11:29A Procedure Note Provider, MD Celeste - 03/21/2017 ANA LILAI LUIS M.D. FINAL REPORT ACC# Date Time Exam [id number] Dec 27, 2014 10:58:00 [id number] Spine Lumbar min 4 views [id number] Dec 27, 2014 10:58:00 [id number] Knee 3 views R EXAMINATION: 1. Lumbar spine minimum 4 views. 2. Right knee, 3 views. HISTORY: Lumbar spondylosis and knee pain FINDINGS: Three-view examination of the right knee includes a Darden and Merchant projection of both knees. There are no prior studies for comparison. The knee joint spaces are normal and symmetric. On the right, there is no fracture or bone abnormality, but there is a small effusion. Four view examination of the lumbar spine includes lateral projections in neutral position, flexion, and extension. Comparison is to a study from 16 July 2008. In neutral position, alignment is normal. There is moderate degenerative disc disease from L3 through L5. There are no compression fractures. Motion is normal with flexion and extension. Compared to the prior examination, the degenerative disc disease has progressed. IMPRESSION: 1. Progressive moderate degenerative disc disease, L3-L5. 2. Small right knee effusion. Requested By: KERRY LEWIS Dictated By: ANA LILIA LUIS M.D. on Dec 27 2014 11:29A This document has been electronically signed by: ANA LILIA LUIS M.D. on Dec 27 2014 11:29A us Historical Provider IMG XR PROCEDURES Final R esult * KNEE RADIOGRAPHY, FRONTAL (AP), LATERAL, OBLIQUE (12/27/2014 10:58 AM NUTRITION AIDE) Anatomical Region Laterality Modality N/A Radiographic Zaynab ging 12/27/2014 10:5 8 AM NUTRITION AIDE Narrative 12/27/2014 11:29 AM NUTRITION AIDE ANA LILIA LUIS M.D. FINAL REPORT ACC# ??Date Time ??Exam [id number] Dec 27, 2014 10:58:00 [id number] Spine Lumbar min 4 views [id number] Dec 27, 2014 10:58:00 [id number] Knee 3 views R EXAMINATION: ? 1. Lumbar spine minimum 4 views. 2. Right knee, 3 views. HISTORY: ??Lumbar spondylosis and knee pain FINDINGS: ??Three-view examination of the right knee includes a Darden and Merchant projection of both knees. There are no prior studies for comparison. The knee joint spaces are normal and symmetric. On the right, there is no fracture or bone abnormality, but there is a small effusion. Four view examination of the lumbar spine includes lateral projections in neutral position, flexion, and extension. Comparison is to a study from 16 July 2008. In neutral position, alignment is normal. There is moderate degenerative disc disease from L3 through L5. There are no compression fractures. Motion is normal with flexion and extension. Compared to the prior examination, the degenerative disc disease has progressed. IMPRESSION: ?? 1. Progressive moderate degenerative disc disease, L3-L5. 2. Small right knee effusion. Requested By: KERRY LEWIS Dictated By: ?? ANA LILIA LUIS M.D. ??on Dec ??3 2014 11:29A This document has been electronically signed by: ANA LILIA LUIS M.D. on Dec 27 2014 11:29A Procedure Note Provider, MD Celeste - 03/21/2017 ANA LILIA LUIS M.D. FINAL REPORT ACC# Date Time Exam [id number] Dec 27, 2014 10:58:00 [id number] Spine Lumbar min 4 views [id number] Dec 27, 2014 10:58:00 [id number] Knee 3 views R EXAMINATION: 1. Lumbar spine minimum 4 views. 2. Right knee, 3 views. HISTORY: Lumbar spondylosis and knee pain FINDINGS: Three-view examination of the right knee includes a Darden and Merchant projection of both knees. There are no prior studies for comparison. The knee joint spaces are normal and symmetric. On the right, there is no fracture or bone abnormality, but there is a small effusion. Four view examination of the lumbar spine includes lateral projections in neutral position, flexion, and extension. Comparison is to a study from 16 July 2008. In neutral position, alignment is normal. There is moderate degenerative disc disease from L3 through L5. There are no compression fractures. Motion is normal with flexion and extension. Compared to the prior examination, the degenerative disc disease has progressed. IMPRESSION: 1. Progressive moderate degenerative disc disease, L3-L5. 2. Small right knee effusion. Requested By: KERRY LEWIS Dictated By: ANA LILIA LUIS M.D. on Dec 27 2014 11:29A This document has been electronically signed by: ANA LILIA LUIS M.D. on Dec 27 2014 11:29A us Historical Provider IMG XR PROCEDURES Final R esult documented in this encounter Visit Diagnoses Diagnosis Low back pain Lumbago Degeneration of lumbar or lumbosacral intervertebral disc Effusion of lower leg joint documented in this encounter
--- OUTSIDE RECORDS SUMMARY | 2024-12-04 20:30 | XMS_ITS | Encounter Summary ---
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
--- OUTSIDE RECORDS SUMMARY | 2024-12-04 20:30 | XMS_ITS | Encounter Summary ---
Author Organization [facility] Address [facility] [facility] [place] [address] Care Team Providers Care Truck Shop Mechanic Name Role Phone Catia Atkins MD Primary Care Provider [phone] Reason for Visit * Reason Onset Date Comments Appointment 04/30/2024 Encounter Details Date Type Department Care Team (Late st Contact Info) Description 04/30/2024 Telephone [facility] - Orthopedic Surgery [address] [place] [address] Rgeino Waite MD [facility] ORTHOPEDIC SURGERY [place], [place] [id number] Appointment Social History Tobacco Use Types Packs/Day Years [...] No 09/28/2022 documented as of this encounter Miscellaneous Notes * Telephone Encounter - Sachin Chavez RN - 04/30/2024 1:47 PM CDT Returned call to patient/, who saw Dr. Leija 03/29/2019 for R L4/5 foraminal stenosis, then Dr. Atkinson 06/28/2019 for sacroiliitis. He wants an opinion on changes to his lumbar stenosis and how it plays to low back/hip pain he is currently having. Follows with neuro, who last ordered MRI cerivcal/thoracic in 2023 to evaluate transverse myelitis and an acute inflammatory lesion in the right superior cerebellar ,suspected postinfectious on 10/29/2023. He has not discussed lumbar pain with neuro. Discussed that no lumbar MRI garnered since 2021. Patient asserts that his entire spine was evaluated in 2023. Discussed with Dr. Waite appropriateness of setting up new patient visit. Would defer to neuro or Dr. Atkinson. Gave number for Dr. Atkinson's office. Patient will call to set up appointment. Denies further questions. documented in this encounter Plan of Treatment Not on file documented as of this encounter Visit Diagnoses Not on filedocumented in this encounter Care Teams Truck Shop Mechanic Relationship Specialty Start Date End Date Catia Atkins MD [address] [place] [address] [address] [place] [id number] PCP - General 06/28/19 documented as of this encounter
--- OUTSIDE RECORDS SUMMARY | 2024-12-04 20:30 | XMS_ITS | Encounter Summary ---
Author Organization [facility] Address [facility] [place] [address] Care Team Providers Care Sweet Goods Machine Operator Name Role Phone Catia Atkins MD Primary Care Provider [phone] Reason for Visit * Reason Comments Establish Care Encounter Details Date Type Department Care Team (Late st Contact Info) Description 03/27/2023 9:00 AM CDT Office Visit [facility] Neurology [address] [place] [id number] Yuri Pham MD [address], [place] [id number] Transverse myelitis (HCC) (Primary Dx); Neurologic gait dysfunction; Spasticity Social History Tobacco Use Types Packs/Day Years [...] Sign Reading Time Taken Comments Blood Pressure 166/95 03/27/2023 9:01 AM CDT Pulse 84 03/27/2023 9:01 AM CDT Temperature 36.6 ??C (97.8 ??F) 03/27/2023 9:01 AM CD T Respiratory Rate - - Oxygen Saturation 96% 03/27/2023 9:01 AM CDT Inhaled Oxygen Concentration - - Weight - - Height - - Body Mass Index - - documented in this encounter Functional Status Functional [...] No 09/28/2022 documented as of this encounter Progress Notes * Yuri Pham MD - 03/27/2023 10:14 AM CDT [facility] MS/Neurology Clinic Yuri Pham MD Date: 03/27/2023 Referring Physician: No referring provider defined for this encounter. Chief Complaint: Chief Complaint Patient presents with ??? Establish Care HPI: Ms/Mr. Binu Justin is a 62 year old male seen for follow up regarding multiple sclerosis. The MS history is summarized below: Per patient he had COVID-19 in mid Sept with symptoms of rhinorrhea, congestion, myalgias and fever he quarantined at home for five days and on August 17 or ? he woke up and noticed his feet and ankles were numb and weak. The weakness and numbness continued progressing up his legs over the next 24 hours and he was unable to feel himself void or have BM. He went to [facility] where imaging and CSF obtained and found to have transverse in the L spine. He was given 5 days of high dose steroids and discharged to rehab. A week later while at rehab he became altered and began having numbness in his arms and over his abdomen and was readmitted to [place] where MRI C spine foundcervical transverse myelitis. He was given another 3 days of high dose steroids and discharged to rehab again. Per facility no CSF infectious or autoimmune has panel has returned positive. He was admitted here at [facility] in early September for recurrence of numbness for about a week. Repeat lumbar puncture showed no white cell count but elevated protein. There is questionable T2 hyperintensity in the cervical spine with contrast-enhancement. Brain MRI is normal. He received IVIG for transverse myelitis treatment. patient did not refer Plex. He was discharged to rehab and seen here for follow-up today. Since discharge from the hospital, he has steadily improved in his motor function and he now is able to walk about 40 feet are longer with a walker. Sensation has improved a little bit although feelsdetaches as if through leather. his bladder function is better and he is able to empty the bladder c ompletely. Chronic symptoms include numbness tingling in the hands, and spasms in the bilateral lower extremities and the lower back muscles. He thinks he tried gabapentin and another muscle relaxant probably Flexeril that made him sleepy and hence not on any medications. Generally does not tolerate medications well. REVIEW OF SYSTEMS: Constitutional: no fever, night sweats, or unintentional weight loss ENT: No runny nose, ear pain, sore throat, or mouth ulcers Cardiovascular: No Irregular heartbeat, racing heart, chest pains, swelling of feet or legs Respiratory: no cough, wheezing, or dyspnea GI: No vomiting, diarrhea or Constipation : No frequent urination, urgency, or hesitancy Musculoskeletal: No Joint pain, swelling of joints Skin: No Persistent rash, itching, new skin lesion, Neurologic: As above Psychiatric No irritability, depression, anxiety, or hallucinations Endocrinologic No Intolerance to heat or cold Hematologic :No Problems Easy bleeding, easy bruising. Past Medical History: Past Medical History: Diagnosis Date ??? Alcohol abuse ??? Arthritic-like pain ??? Low back pain Family History: Family History Problem Relation Name Age of Onset ??? Arthritis - Osteo Mother Status: ??? None Known Father Status: Alive Social History: Social History Socioeconomic History ??? Marital status: Single Spouse name: Not on file ??? Number of children: Not on file ??? Years of education: Not on file ??? Highest education level: Not on file Occupational History ??? Not on file Tobacco Use ??? Smoking status: Former Packs/day: 1.00 Types: Cigarettes ??? Smokeless tobacco: Former Vaping Use ??? Vaping status: Former Substance and Sexual Activity ??? Alcohol use: Yes Comment: very seldom ??? Drug use: Not Currently Types: Marijuana Comment: stopped ??? Sexual activity: Not on file Other Topics Concern ??? Not on file Social History Narrative ??? Not on file Social Determinants of Health Financial Resource Strain: Not on file Food Insecurity: No Food Insecurity (09/28/2022) Hunger Vital Sign ??? Worried About Running Out of Food in the Last Year: Never true ??? Ran Out of Food in the Last Year: Never true Transportation Needs: Not on file Stress: Not on file Housing Stability: Not on file Medication List: Current Outpatient Medications Medication ??? acetaminophen (Tylenol) 325 MG tablet ??? Albuterol Sulfate 108 (90 Base) MCG/ACT ??? baclofen (Lioresal) 10 MG tablet ??? bisacodyl (Dulcolax) 10 MG suppository ??? calcium carbonate (Calci-Chew) 1250 (500 Ca) MG chew tablet ??? Eliquis 2.5 MG tablet ??? Fluticasone Furoate 50 MCG/ACT AEPB ??? loratadine (Claritin) 10 MG tablet ??? Melatonin 3 MG ??? ondansetron (Zofran) 4 MG tablet ??? pantoprazole EC (Protonix) 40 MG tablet ??? polyethylene glycol 3350 (Miralax) 17 g packet No current facility-administered medications for this visit. GENERAL PHYSICAL EXAM: Constitutional: BP 166/95 Pulse 84 Temp 97.8 ??F (36.6 ??C) (Oral) SpO2 96% Neuro Exam: Mental Status Awake, alert, and oriented Language (naming, repetition, fluency, comprehension) intact Fund of knowledge average Cranial Nerves Visual barroso are full EOMI, MARCIA, No KRYSTINA, No Nystagmus normal facial sensation no facial weakness hearing intact Palate elevates in midline normal strength of sternocleidomastoid and trapezius tongue is midline Sensory Decreased to touch below T10 Vibration is decreased at the knees Good power in bilateral upper extremities In the lower extremities 5-/5 in the right lower extremity and 4/5 at the proximal hip joint And 4+ /5 at knee and ankle on the left lower extremity Review of records: Labs: Marked pleocytosis in the CSF with elevated protein in July. Repeat CSF in September showed elevated protein of 143, and resolution of pleocytosis. Negative for oligoclonal bands Serum testing for NMO/MOG antibodies was negative. JUANY 1 : 80 Assessment: Encounter Diagnoses Name Primary? Transverse myelitis (CMS/HCC) Yes ??? Neurologic gait dysfunction ??? Spasticity Recommendation: Ms. Binu Justin is a 62 year old male seen for follow up regarding transverse myelitis. He developed symptoms consistent with transverse myelitis, after developing COVID infection . Alternate etiologies have been excluded, including rheumatological causes and, DIRECTOR SUPPLY inflammatory disorders like MS, NMO and MOGAD. This is likely post infectious myelitis in the setting of COVID-19 infection . He has made marked improvement from being paralyzed with no discernible movement to, able to walk with bilateral assist. Discussed with him that we can hope to see further improvement up to 2 years from onset of symptoms. Recommend symptomatic treatment of spasms with stretching exercise, continued physical therapy. I encouraged him to try baclofen 5 mg at night and if tolerated well can go up to 10 mg at night. Prescription for physical occupational therapy was provided. To complete the work-up I will repeat serum CDS 1 (NMO/MOG antibodies), and serum autoimmune encephalitis panel, and rheumatological screening including double-stranded DNA, Sjogren antibody panel, ANCA vasculitis panel, and CCP antibodies. He can follow-up in our resident clinic in 3 months, [address] Delgado at [facility], which ever isconvenient to him. Signature: Yuri Phma MD [employer] Sales Representative of Neurology Neuroimmunology & [facility] Billing Guide documented in this encounter Plan of Treatment Not on file documented as of this encounter Procedures Procedure Name Priority Date/Time Associated Diagnosis Comments CYCLIC CITRULLINATED PEPTIDE(CCP) AB IGG Routine 03/27/2023 10:53 AM CDT Transverse myelitis (HCC) documented in this encounter Results * CORNEJO/FAMILY PRACTICE PHYSICIAN ASSISTANT (ARNAUD) ANTIBODY IGG (03/27/2023 10:53 AM CDT) Cornejo/FAMILY PRACTICE PHYSICIAN ASSISTANT (ARNAUD) Antibody IgG 3 0 - 19 Units 03/28/2023 6:58 PM CDT [facility] ([facility]) Comment: INTERPRETIVE INFORMATION: Cornejo/FAMILY PRACTICE PHYSICIAN ASSISTANT (ARNAUD) Antibody, IgG ??19 Units or Less ............. Negative ??20 to 39 Units ............... Weak Positive ??40 to 80 Units ............... Moderate Positive ??81 Units or greater .......... Strong Positive Cornejo/FAMILY PRACTICE PHYSICIAN ASSISTANT antibodies are frequently seen in patients with mixed connective tissue disease (MCTD) and are also associated with other systemic autoimmune rheumatic diseases (SARDs) such as systemic lupus erythematosus (SLE), systemic sclerosis, and myositis. Antibodies targeting the Cornejo/FAMILY PRACTICE PHYSICIAN ASSISTANT antigenic complex also recognize Cornejo antigens, therefore, the Cornejo antibody response must be considered when interpreting these results. Performed By: [facility] [address] [place] [address] Underground Mine Machinery Mechanic: Karthikeyan Lazcano MD, PhD Blood BLOOD SPECIMEN / Unknown Lab Venipuncture / Unknown 03/27/2023 10:53 AM CDT 03/27/2023 11:07 AM CDT Yuri Pham MD LAB - CHEMISTRY ORDERABLES [facility]) [address] * METHYLMALONIC ACID BLOOD (03/27/2023 10:53 AM CDT) Pathologist [facility] Methylmalonic Acid 0.10 0.00 - 0.40 umol/L 03/30/2023 10:47 PM CDT [facility] ([facility]) Comment: INTERPRETIVE INFORMATION: MMA Serum/Plasma, ?Vitamin B12 Status This test was developed and its performance characteristics determined by [facility] [employer]. It has not been cleared or approved by the [place] Food and Drug Administration. This test was performed in a CLIA certified laboratory and is intended for clinical purposes. Performed By: [place] [address] [employer] Machinery Mechanic: Karthikeyan Lazcano MD, PhD Blood BLOOD SPECIMEN / Unknown Lab Venipuncture / Unknown 03/27/2023 10:53 AM CDT 03/27/2023 11:07 AM CDT Yuri Pham MD LAB - CHEMISTRY ORDERABLES Performing Organization Address [facility]/ZIP Co de Phone Number [facility]) [address] [place] [address] * VITAMIN B12 (03/27/2023 10:53 AM CDT) Vitamin B12 513 213 - 816 pg/mL 03/27/2023 12:19 PM CDT [facility] Blood BLOOD SPECIMEN / Unknown Lab Venipuncture / Unknown 03/27/2023 10:53 AM CDT 03/27/2023 11:23 AM CDT Yuri Pham MD LAB - CHEMISTRY ORDERABLES [address] [id number], [facility] [phone] * MPO/LA 3 AUTOANTIBODIES PANEL (03/27/2023 10:53 AM CDT) Serine Proteinase 3 IgG 0 0 - 19 AU/mL 03/29/2023 11:17 AM CDT [facility] ([facility]) Comment: INTERPRETIVE INFORMATION: Serine Proteinase 3, IgG ??19 AU/mL or Less ........ Negative ??20-25 AU/mL ............. Equivocal ??26 AU/mL or Greater ..... Positive Approximately 85% of patients with a C-ANCA pattern by IFA have antibodies specific for PR3. Performed By: [facility] [address] [place] [address] Underground Mine Machinery Mechanic: Karthikeyan Lazcano MD, PhD Myeloperoxidase Antibody 0 0 - 19 AU/mL 03/29/2023 11:17 AM CDT [facility] ([facility]) Comment: INTERPRETIVE INFORMATION: Myeloperoxidase Abs, IgG ??19 AU/mL or Less ......... Negative ??20-25 AU/mL .............. Equivocal ??26 AU/mL or Greater ...... Positive Approximately 90% of patients with a P-ANCA pattern by IFA have antibodies specific for MPO. Blood BLOOD SPECIMEN / Unknown Lab Venipuncture / Unknown 03/27/2023 10:53 AM CDT 03/27/2023 11:08 AM CDT Yuri Pham MD LAB - CHEMISTRY ORDERABLES [facility] ([facility]) [address] [place] [address] * SS-B (SJOGREN'S) ANTIBODY (03/27/2023 10:53 AM CDT) SS-B Antibody 0 0 - 40 AU/mL 03/29/2023 11:29 AM CDT [facility] ([facility]) Comment: INTERPRETIVE INFORMATION: SSB (La) (ARNAUD) Ab, [...] (PSS) also have this antibody. Performed By: [facility] [address] [place] [id number] [employer] Mach[employer] Mechanic: Karthikeyan Lazcano MD, PhD Blood BLOOD SPECIMEN / Unknown Lab Venipuncture / Unknown 03/27/2023 10:53 AM CDT 03/27/2023 11:07 AM CDT Yuri Pham MD LAB - CHEMISTRY ORDERABLES Performing Organization Address [facility] Co de Phone Number [facility]) [address] [place] [address] * CYCLIC CITRULLINATED PEPTIDE(CCP) AB IGG (03/27/2023 10:53 AM CDT) [facility] CCP Antibody IgG 1.0 <5.0 U/mL 03/27/2023 12:14 PM CDT [facility] Blood BLOOD SPECIMEN / Unknown Lab Venipuncture / Unknown 03/27/2023 10:53 AM CDT 03/27/2023 11:07 AM CDT Yuri Pham MD LAB - CHEMISTRY ORDERABLES Performing Organization Address [facility] Co de Phone Number [address] [address], [facility] [phone] * HTLV-I/II ANTIBODY W REFLEX CONFIRM (03/27/2023 10:53 AM CDT) [facility] HTLV-1/2 Antibody Negative Negative 03/28/2023 11:45 PM CDT [facility] ([facility]) Comment: Based on the non-reactive anti-HTLV CRISTAL screen, the HTLV Western Blot is not indicated and therefore not performed. INTERPRETIVE INFORMATION: ??HTLV I/II Antibodies w/Reflex ? to Confirm This assay should not be used for blood donor screening, associated re-entry protocols, or for screening Human Cell, Tissues and Cellular and Tissue-Based Products (HCT/P). Performed by [facility], [address] [place] [id number] [email or web address], Karthikeyan Lazcano MD, PHD, Lab. Director Blood BLOOD SPECIMEN / Unknown Lab Venipuncture / Unknown 03/27/2023 10:53 AM CDT 03/27/2023 11:08 AM CDT Yuri Carolina Pham MD LAB - SEROLOGY ORDERABLES [facility] ([facility]) [address] documented in this encounter Visit Diagnoses Diagnosis Transverse myelitis (HCC)- Primary Other causes of myelitis Neurologic gait dysfunction Abnormality of gait Spasticity Abnormal involuntary movements documented in this encounter Care Teams Sweet Goods Machine Operator Relationship Specialty Start Date End Date Catia Atkins MD [facility] [place] [id number] PCP - General 06/28/19 documented as of this encounter
--- OUTSIDE RECORDS SUMMARY | 2024-12-04 20:30 | XMS_ITS | Encounter Summary ---
Author Organization [facility] Address [address] [place] [address] Care Team Providers Care Engineering Program Analyst Name Role Phone Catia Atkins MD Primary Care Provider [phone] Reason for Visit * Reason Comments Establish Care Follow up Encounter Details Date Type Department Care Team (Late st Contact Info) Description 03/10/2024 4:00 PM CDT Office Visit [facility] - Neurology [address] [place] [address] Genie Hoffmann MD [address] [place] [address] Clinically isolated syndrome (HCC) (Primary Dx) Social History Tobacco Use Types [...] Sign Reading Time Taken Comments Blood Pressure 130/74 03/10/2024 4:10 PM CDT Pulse 73 03/10/2024 4:10 PM CDT Temperature 36.6 ??C (97.8 ??F) 03/10/2024 4:10 PM CD T Respiratory Rate - - Oxygen Saturation 96% 03/10/2024 4:10 PM CDT Inhaled Oxygen Concentration - - Weight 83.8 kg (184 lb 11.2 oz) 03/10/2024 4:10 PM CDT Height - - Body Mass Index 26.5 09/27/2022 7:42 PM CDT documented in this [...] as of this encounter Progress Notes * Genie Hoffmann MD - 03/10/2024 4:37 PM CDT NEUROLOGY OUTPATIENT PROGRESS NOTE Date: 03/10/2024 Chief Complaint: Follow up re TM HISTORY OF PRESENT ILLNESS: I saw Binu Justin in a return consultation for a history of transverse myelitis,suspected postinfectious on 10/29/23. He is a very pleasant 63 year old right handed male with a PMH of sacroiliitis, who was last seen by my colleague Dr. Pham on 03/27/23 Patient came alone and provided the interim history.I also reviewed EMR. Pertinent Multiple Sclerosis history is obtained from previous Neurologist's note Per patient he had COVID-19 in mid [...] void or have BM. He went to [facility] where imaging and CSF obtained and found to have transverse in the L spine. He was given 5 days of high dose steroids and discharged to rehab. A week later while at rehab he became altered and began having numbness in his arms and over his abdomen and was readmitted to [facility] where MRI C spine foundcervical transverse myelitis. He was given another 3 days of high dose steroids and discharged to rehab again. Per facility no CSF infectious or autoimmune has panel has returned positive. ?? He was admitted here at [facility] in early September 2022 for recurrence of numbness for about a week. ?? Repeat lumbar puncture showed no white cell count but elevated protein. There is questionable T2 hyperintensity in the cervical spine with contrast-enhancement. Brain MRI is normal. ?? He received IVIG for transverse myelitis treatment. patient did not refer Plex. He was discharged to rehab and seen here for follow-up today. ?? At the symptomatic treatment of spasms with stretching exercise, continued physical therapy. I encouraged him to try baclofen 5 mg at night and if tolerated well can go up to 10 mg at night. Prescription for physical occupational therapy was provided. To complete the work-up repeat serum CDS 1 (NMO/MOG antibodies), and serum autoimmune encephalopathy/encephalitis panel were sent, and rheumatological screening including double-stranded DNA, Sjogrenantibody panel, ANCA vasculitis panel, and CCP antibodies. Latest Reference Range & Units 09/30/22 16:58 09/30/22 17:19 Glucose,CSF-STAT 40 - 70 mg/dL 64 Albumin CSF 0 - 35 mg/dL 99 (H) IgG CSF 0.0 - 6.0 mg/dL 12.6 (H) IgG/Albumin Ratio CSF 0.09 - 0.25 ratio 0.13 IgG Index 0.28 - 0.66 ratio 0.07 (L) Synthesis Rate <=8.0 mg/d <0.0 Oligoclonial Bands Number 0 - 1 Bands 0 Oligoclonal Bands Negative Negative Interpretation Oligoclonial See Note Protein CSF 15 - 45 mg/dL 143 (H) Interval History Returned call to patient and spouse. And infromed them of the below information. ?? 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 In 15 percents of the patients with MS, or who are to develop MS there are nooligoclonal bands. This is his first event, and clinically isolated syndrome is a phase prior to MSdiagnosis. I encourage patient to consider starting a DMT. Also, I recommend a course of Solumedrol1 gram IV per day x 3 days now because there is still some residual enhancement suggesting still active inflammation. Please let me know how patient would like to proceed Since last seen, he patient has been experiencing muscle spasms that have been affecting his ambulation, accompanied by emotional fluctuations. He reports a sensation of tightness and tingling extending from the lower chest to the toes, which intensifies with movement. The spasms are more pronounced in the right leg, especially at night. Despite the severity, the patient continues a daily walkingregimen with the aid of a walker. He has been prescribed 10mg of baclofen every other day for spasmmanagement but is wary of side effects like drowsiness. The patient is seeking alternative medication to better control the spasms and enhance walking capabilities. The patient experiences numbness and tingling in the fingertips, which is believed to be related toa past thumb injury. He recounts symptoms consistent with a possible COVID-19 infection, including loss of taste and smell, weakness, and dizziness. The patient is also seeking information on the connection between his symptoms and previous COVID-19 infections, as well as the risk/possibility of developing multiple sclerosis, and inquires about treatment for clinically isolated syndrome.. He notes fluctuations in muscle strength and spasms, with a trend toward gradual improvement. Denies interim history of double vision, blurry vision, difficulty swallowing, numbness, weakness anywhere, bladder or bowel dysfunction. 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 CSF: No oligoclonal bands Progressive since: no progression Most recent clinical/radiological relapse: n/a DMT history: n/a Chronic symptoms: -- - muscle spasms : Baclofen as needed - muscle weakness - altered skin sensation below the cervical level of the TM Ambulates with Assistive device: none Patient Drives: yes ADLs independent ROS: Constitutional: No fever, no fatigue; Eye: No recent visual problem; ear/nose/mouth/throat: No decreased hearing; respiratory: No shortness of breath, no cough; cardiovascular: No chest pain; gastrointestinal: No vomiting, no diarrhea, no constipation; genitourinary: No urinary incontinence; musculo skeletal: No joint pain, no back pain, no neck pain; psychiatric: No moodiness, no depression. Current Outpatient Medications: Current Outpatient Medications Medication Sig ??? acetaminophen (Tylenol) 325 MG tablet Take 1 (one) tablet by mouth every 4 hours as needed for Fever or Pain Maximum allowable Acetaminophen amount = 4 Grams (4000 mg) / 24 hours. (Patient not taking: Reported on 03/27/2023) ??? Albuterol Sulfate 108 (90 Base) MCG/ACT (Patient not taking: Reported on 03/27/2023) ??? baclofen (Lioresal) 10 MG tablet Take 1 (one) tablet by mouth at bedtime May cause drowsiness. ??? bisacodyl (Dulcolax) 10 MG suppository Insert 1 (one) suppository into the rectum once daily asneeded for Constipation (Patient not taking: Reported on 03/27/2023) ??? calcium carbonate (Calci-Chew) 1250 (500 Ca) MG chew tablet Take 1 (one) tablet by mouth 4 times daily as needed after meals/at bedtime for Heartburn (Patient not taking: Reported on 03/27/2023) ??? Eliquis 2.5 MG tablet Take 1 (one) tablet by mouth ??? Fluticasone Furoate 50 MCG/ACT AEPB (Patient not taking: Reported on 03/27/2023) ??? ibuprofen (Motrin) 800 MG tablet Take 1 tablet 3 times a day by oral route as needed. ??? loratadine (Claritin) 10 MG tablet Take 1 (one) tablet by mouth once daily (Patient not taking:Reported on 03/27/2023) ??? magnesium 30 MG tablet Take 2 (two) tablets by mouth once daily ??? Melatonin 3 MG (Patient not taking: Reported on 10/29/2023) ??? ondansetron (Zofran) 4 MG tablet Take 1 (one) tablet by mouth every 6 hours as needed for Nausea/Vomiting (Patient not taking: Reported on 03/27/2023) ??? pantoprazole EC (Protonix) 40 MG tablet Take 1 (one) tablet by mouth 2 times daily (Patient nottaking: Reported on 03/27/2023) ??? polyethylene glycol 3350 (Miralax) 17 g packet Take by mouth once daily ??? terbinafine (LamISIL) 250 MG tablet TAKE 1 TABLET BY MOUTH EVERY DAY FOR 1 WEEK OF EACH MONTH FOR 4 MONTHS No current facility-administered medications for this visit. ALLERGIES: No Known Allergies PAST MEDICAL HISTORY: Past Medical History: Diagnosis Date ??? Alcohol abuse ??? Arthritic-like pain ??? Low back pain PAST SURGICAL HISTORY: Past Surgical History: Procedure Laterality Date ??? Appendectomy ??? HX OF HAND SURGERY FAMILY HISTORY: Family History Problem Relation Name Age of Onset ??? Arthritis - Osteo Mother Status: ??? None Known Father Status: Alive SOCIAL HISTORY: Social History Socioeconomic History ??? Marital status: Single Spouse name: Not on file ??? Number of children: Not on file ??? Years of education: Not on file ??? Highest education level: Not on file Occupational History ??? Not on file Tobacco Use ??? Smoking status: Former Packs/day: 1 Types: Cigarettes ??? Smokeless tobacco: Former Vaping [...] on file Housing Stability: Not on file EXAMINATION: BP 130/74 Pulse 73 Temp 97.8 ??F (36.6 ??C) Wt 83.8 kg (184 lb 11.2 oz) SpO2 96% Physical: General: alert and oriented. No acute distress. HEENT: Normocephalic, no discharge from the ears, oral mucosa moist. Mallampati class I No corneal abrasions. Neck supple, non-tender. No bruit Respiratory: Symmetric chest wall expansion. Lungs clear. Cardiovascular: Normal rate, regular rhythm Extremities: Warm, no discolorations. No Lymphadenopathy Skin: No rash or lesions Neurological: Mental Status: The patient is awake, alert, cooperative and oriented x 3. Answers questions and follows commands appropriately. Recalls 3/3 objects immediately and in 5 minutes. Speech is clear without dysarthria. Language is fluent with intact naming, comprehension, repetition and expression. Cranial Nerve Exam: Visual barroso are full to confrontation. The pupils react directly and consensually to light, no APD. Fundi with sharp disk margins and normal vasculature. Extraocular movements are intact to tracking and saccades without nystagmus, no KRYSTINA. Face symmetric at rest and with activation. No facial weakness. Sensation is intact over the face in the V1-V3 to temperature and light touch. Hearing is intact to finger rub. Tongue and uvula are midline. Masseter strength is normal. Sternocleidomastoid and trapezius strength are normal. Motor: Strength is 5/5 (full), except for left hip flexion 3/5. and tone is normal throughout. No abnormal movements are seen. No wasting of any musculature is noted. No pronator drift, no satelliting. Tone increased in the right leg and limitted range of motion of the right hip. Sensory: Full sensation to light touch throughout. Skin allodynia in the LEs. No extinction. Reflexes: Deep tendon reflexes are left patella 2+/4; right patella 3+/4; otherwise 2+/4 throughoutwith down going plantar responses. Coordination: Finger to nose and heel to arnold testing is normal. Rapid alternating and rapid repetitive movements are normal. Gait: Raises from a seated position with arms crossed in front of the chest. Gait is spastic.. Walks on toes, heels and tandem. Romberg sign is absent. Labs: Lab Results Component Value Date WBC 7.2 10/01/2022 RBC 3.76 (L) 10/01/2022 HGB 11.2 (L) 10/01/2022 HCT 33.7 (L) 10/01/2022 MCV 89.6 10/01/2022 MONO 1.35 (H) 09/27/2022 EOS 0.09 09/27/2022 BASO 0.07 09/27/2022 Lab Results Component Value Date BUN 20 10/01/2022 BCR 28 (H) 10/01/2022 EGFR >90 01/17/2024 NA 137 10/01/2022 CL 106 10/01/2022 CO2 23 10/01/2022 ALB 3.4 09/27/2022 Lab Results Component Value Date VITB12 513 03/27/2023 No results found for: INR Lab Results Component Value Date TSH 2.544 03/27/2023 Lab Results Component Value Date ALB 3.4 09/27/2022 Imaging, Labs, and Other Results: Per prior review MRI brain w and w/o contrast 09/28/22: enhancement involving the right superior cerebellar peduncle.This has been interpreted by the radiologist as nonspecific versus seen on PSP MRI cervical spine w and w/o 09/28/22: patchy abnormal signal and enhancement predominantly in the posterior and lateral aspects of the cervical cord at the level of C4 and C6. MRI thoracic spine : no cord lesions or enhancement IMPRESSION: Binu dunn is a very pleasant 63 year old male with a PMH of Transverse Myelitis, suspected post-infectious, diagnosed in on 10/29/23. Patient has been clinically stable. Discussed that this clinico-radiologic event of transverse myelitis is consistetn with Clinically Isolated Syndrome (CIS), based on the finding of contrast enhancing demyelinating lesions at the level of C4 and C6. Additionally, there is contrast enhancement of the superior cerebellar peduncle which is described by theradiologist as finding concerning for PSP, however this is a location where demyelinating lesions in setting of the MS occur as well. LP at presentation, (0) oligoclonal bands. No repeat imaging since presentation (09/2022). He endorses leg spasms for which would like to try nature products first, including pickle juice, yellow mustard, tonic water, cont. Mag glycinate. 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 RECOMMENDATIONS: 1. Would like to repeat MRI brain, cervical and thoracic spine. Would like to monitor interval change/new lesions. 2. Discussed with patient the risk for developing MS, and DMT options. Patient would like to think. 3. For muscle spasms, after the 2 week trial of managing the leg spasms with nature products, will discuss whether patient would prefer to continue with the latter, or we will try uptitrating baclofen or start Tizanidine. He will contact the clinic if he prefers the medications 4. For alleviation of muscle spasms/spacticity may purchase over the counter CBD lotion/oil to apply on the skin and massage to help relax the muscles. 5. Follow up in 3 months after the MRI studies are completed. Thank you you very much for allowing me to participate in the care of this very pleasant patient . Please do not hesitate to call me should questions or concerns arise. Genie Hoffmann MD PhD Neurology A total of 40 minutes were spent [id number] with the patient with greater than half of that time spent on counseling, complex decision making and coordination of care. A total of 20 minutes were spent non [id number] today, prior and after this encounter on reviewing of medical records, medical imaging, and finalizing the documentation. * Genie Hoffmann MD - 03/10/2024 4:37 PM CDT NEUROLOGY OUTPATIENT PROGRESS NOTE Date: 03/10/2024 Chief Complaint: Clinically Isolated Syndrome HISTORY OF PRESENT ILLNESS: I saw Binu Justin in a return consultation for a history of transverse myelitis and an acute inflammatory lesion in the right superior cerebellar ,suspected postinfectious on 10/29/23. He is a very pleasant 63 year old right handed male with a PMH of sacroiliitis, who was last seen by me in Patient came alone and provided the interim history.I also reviewed EMR. Pertinent Multiple Sclerosis history is obtained from previous Neurologist's note Per patient he had COVID-19 in mid July with symptoms of rhinorrhea, congestion, myalgias and fever he quarantined at home for five days and on August 17 or ? he woke up and noticed his feet and ankles were numb and weak. The weakness and numbness continued progressing up his legs over the next 24 hours and he was unable to feel himself void or have BM. He went to [facility] where imaging and CSF obtained and found to have transverse in the L spine. He was given 5 days of high dose steroids and discharged to rehab. A week later while at rehab he became altered and began having numbness in his arms and over his abdomen and was readmitted to [facility] where MRI C spine foundcervical transverse myelitis. He was given another 3 days of high dose steroids and discharged to rehab again. Per facility no CSF infectious or autoimmune has panel has returned positive. He was admitted here at [facility] in early September 2022 for recurrence of numbness for about a week. Repeat lumbar puncture showed no white cell count but elevated protein. There is questionable T2 hyperintensity in the cervical spine with contrast-enhancement. Brain MRI is normal. He received IVIG for transverse myelitis treatment. patient did not prefer Plex. He was discharged to rehab and seen here for follow-up today. At the symptomatic treatment of spasms with stretching exercise, continued physical therapy. I encouraged him to try baclofen 5 mg at night and if tolerated well can go up to 10 mg at night. Prescription for physical occupational therapy was provided. To complete the work-up repeat serum CDS 1 (NMO/MOG antibodies), and serum autoimmune encephalopathy/encephalitis panel were sent, and rheumatological screening including double-stranded DNA, Sjogrenantibody panel, ANCA vasculitis panel, and CCP antibodies. Latest Reference Range & Units 09/30/22 16:58 09/30/22 17:19 Glucose,CSF-STAT 40 - 70 mg/dL 64 Albumin CSF 0 - 35 mg/dL 99 (H) IgG CSF 0.0 - 6.0 mg/dL 12.6 (H) IgG/Albumin Ratio CSF 0.09 - 0.25 ratio 0.13 IgG Index 0.28 - 0.66 ratio 0.07 (L) Synthesis Rate <=8.0 mg/d <0.0 Oligoclonial Bands Number 0 - 1 Bands 0 Oligoclonal Bands Negative Negative Interpretation Oligoclonial See Note Protein CSF 15 - 45 mg/dL 143 (H) Interval History Since last seen, on 02/25/2024 patient communicated with the clinic inquiring MRI results. There was still some residual enhancement of previously known lesions in the spinal cord. The business writer of this note indicated that his diagnosis remains CIS, with lesions in place, no evidence of separation in time, as well as no oligoclonal bands in the CSF, to meet the criteria for MS, however CIS is a precursor of MS, and therefore a DMT is recommended. If note extensive workup has excluded mimicking disorders. Patient feels that modifying his diet will improve further his recovery and will prevent future events. Patient has discontinued taking many of the medications, he currently continues to take Aprixaban, Albuteral, Baclofen, Calcium, Claritin, Melatonin, Magnesium, Lamisil. Patient has been trying to minimize medications, and to consume healthy anti-inflammatory diet. He describes experiencing fluctuations in the intensity of his cramps and spasms, noting a pattern of improvement and worsening over time but acknowledges a general trend of improvement since their onset. In terms of self-management, the patient has attempted various strategies, including hydration withGatorade, which he believes may have helped reduce the severity of his cramps. His history of medication use includes a 10-day course of 5 mg at bedtime Baclofen, which he discontinued due to sedation and ineffectiveness in relieving his crampsHe has not had relief of the muscle spasms from taking nature products including pickles, pickle juice, yellow mustard. He reports receiving daily assistance from his daughter for three hours and has been actively engaging in physical activities, such as cutting grass and practicing standing straighter, indicating a degree of functional improvement. Patient has been participating in exercises on his own, and acknowledges. Patient is not interestedin starting a DMT a this time, will think about it and will let me know. The patient continues to experience numbness and tingling in the fingertips, which is believed to be related to a past thumb injury. He recounts symptoms consistent with a possible COVID-19 infection, including loss of sense of taste and smell, weakness, and dizziness. Date of diagnosis: 09/30/22 Presentation/symptom: TM MS subtype: Relapsing MS, no recurrence CSF: No oligoclonal bands Progressive since: no progression Most recent clinical/radiological relapse: n/a DMT history: n/a Chronic symptoms: -- - muscle spasms : Baclofen as needed - muscle weakness - altered skin sensation below the cervical level of the TM Ambulates with Assistive device: none Patient Drives: yes ADLs independent 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 CSF: No oligoclonal bands Progressive since: no progression Most recent clinical/radiological relapse: n/a DMT history: n/a Chronic symptoms: -- - muscle spasms : Baclofen as needed - muscle weakness - altered skin sensation below the cervical level of the TM Ambulates with Assistive device: none Patient Drives: yes ADLs independent ROS: Constitutional: No fever, no fatigue; Eye: No recent visual problem; ear/nose/mouth/throat: No decreased hearing; respiratory: No shortness of breath, no cough; cardiovascular: No chest pain; gastrointestinal: No vomiting, no diarrhea, no constipation; genitourinary: No urinary incontinence; musculo skeletal: No joint pain, no back pain, no neck pain; psychiatric: No moodiness, no depression. Current Outpatient Medications: Current Outpatient Medications Medication Sig acetaminophen (Tylenol) 325 MG tablet Take 1 (one) tablet by mouth every 4 hours as needed for Fever or Pain Maximum allowable Acetaminophen amount = 4 Grams (4000 mg) / 24 hours. (Patient not taking: Reported on 03/27/2023) Albuterol Sulfate 108 (90 Base) MCG/ACT (Patient not taking: Reported on 03/27/2023) baclofen (Lioresal) 10 MG tablet Take 1 (one) tablet by mouth at bedtime May cause drowsiness. bisacodyl (Dulcolax) 10 MG suppository Insert 1 (one) suppository into the rectum once daily as needed for Constipation (Patient not taking: Reported on 03/27/2023) calcium carbonate (Calci-Chew) 1250 (500 Ca) MG chew tablet Take 1 (one) tablet by mouth 4 times daily as needed after meals/at bedtime for Heartburn (Patient not taking: Reported on 03/27/2023) Eliquis 2.5 MG tablet Take 1 (one) tablet by mouth Fluticasone Furoate 50 MCG/ACT AEPB (Patient not taking: Reported on 03/27/2023) ibuprofen (Motrin) 800 MG tablet Take 1 tablet 3 times a day by oral route as needed. loratadine (Claritin) 10 MG tablet Take 1 (one) tablet by mouth once daily (Patient not taking: Reported on 03/27/2023) magnesium 30 MG tablet Take 2 (two) tablets by mouth once daily Melatonin 3 MG (Patient not taking: Reported on 10/29/2023) ondansetron (Zofran) 4 MG tablet Take 1 (one) tablet by mouth every 6 hours as needed for Nausea/Vomiting (Patient not taking: Reported on 03/27/2023) pantoprazole EC (Protonix) 40 MG tablet Take 1 (one) tablet by mouth 2 times daily (Patient not taking: Reported on 03/27/2023) polyethylene glycol 3350 (Miralax) 17 g packet Take by mouth once daily terbinafine (LamISIL) 250 MG tablet TAKE 1 TABLET BY MOUTH EVERY DAY FOR 1 WEEK OF EACH MONTH FOR 4MONTHS No current facility-administered medications for this visit. ALLERGIES: No Known Allergies PAST MEDICAL HISTORY: Past Medical History: Diagnosis Date Alcohol abuse Arthritic-like pain Low back pain PAST SURGICAL HISTORY: Past Surgical History: Procedure Laterality Date Appendectomy HX OF HAND SURGERY FAMILY HISTORY: Family History Problem Relation Name Age of Onset Arthritis - Osteo Mother Status: None Known Father Status: Alive SOCIAL HISTORY: Social History Socioeconomic History Marital status: Single [...] on file Housing Stability: Not on file EXAMINATION: BP 130/74 Pulse 73 Temp 97.8 ??F (36.6 ??C) Wt 83.8 kg (184 lb 11.2 oz) SpO2 96% Physical: General: alert and oriented. No acute distress. HEENT: Normocephalic, no discharge from the ears, oral mucosa moist. Mallampati class I No corneal abrasions. Neck supple, non-tender. No bruit Respiratory: Symmetric chest wall expansion. Lungs clear. Cardiovascular: Normal rate, regular rhythm Extremities: Warm, no discolorations. No Lymphadenopathy Skin: No rash or lesions Neurological: Mental Status: The patient is awake, alert, cooperative and oriented x 3. Answers questions and follows commands appropriately. Recalls 3/3 objects immediately and in 5 minutes. Speech is clear without dysarthria. Language is fluent with intact naming, comprehension, repetition and expression. Cranial Nerve Exam: Visual barroso are full to confrontation. The pupils react directly and consensually to light, no APD. Fundi with sharp disk margins and normal vasculature. Extraocular movements are intact to tracking and saccades without nystagmus, no KRYSTINA. Face symmetric at rest and with activation. No facial weakness. Sensation is intact over the face in the V1-V3 to temperature and light touch. Hearing is intact to finger rub. Tongue and uvula are midline. Masseter strength is normal. Sternocleidomastoid and trapezius strength are normal. Motor: Strength: LEs - Left hip flexion strength 4- out of 5. - Right hip flexion strength 5 out of 5. - Bilateral foot dorsiflexion strength 3 out of 5. - Right knee flexion strength 4 out of 5. - Right foot plantar flexion strength 5 out of 5. - Moderate to severe spasticity bilaterally in th LEs , more pronounced at the right knee than left. Ues strength and tone normal. No abnormal movements are seen. No wasting of any musculature is noted. No pronator drift, no satelliting. Sensory: Full sensation to light touch throughout. Skin allodynia in the LEs. No extinction. Reflexes: Deep tendon reflexes are left patella 2+/4; right patella 3+/4; otherwise 2+/4 throughoutwith down going plantar responses. Coordination: Finger to nose and heel to arnold testing is normal. Rapid alternating and rapid repetitive movements are normal. Gait: Raises from a seated position with arms crossed in front of the chest. Gait is spastic.. Walks on toes, heels; and tandem with mild hesitance. Romberg sign is absent. Labs: Lab Results Component Value Date WBC 7.2 10/01/2022 RBC 3.76 (L) 10/01/2022 HGB 11.2 (L) 10/01/2022 HCT 33.7 (L) 10/01/2022 MCV 89.6 10/01/2022 MONO 1.35 (H) 09/27/2022 EOS 0.09 09/27/2022 BASO 0.07 09/27/2022 Lab Results Component Value Date BUN 20 10/01/2022 BCR 28 (H) 10/01/2022 EGFR >90 01/17/2024 NA 137 10/01/2022 CL 106 10/01/2022 CO2 23 10/01/2022 ALB 3.4 09/27/2022 Lab Results Component Value Date VITB12 513 03/27/2023 No results found for: INR Lab Results Component Value Date TSH 2.544 03/27/2023 Lab Results Component Value Date ALB 3.4 09/27/2022 Imaging, Labs, and Other Results: MRI brain w and w/o contrast 09/27/22: enhancement involving the right superior cerebellar peduncle.This has been interpreted by the radiologist as nonspecific versus seen on PSP MRI brain w and w/o contrast 01/17/2024: Interval resolution of the previously seen FLAIR signal andabnormal enhancement involving the right superior cerebellar peduncle. MRI cervical spine w and w/o 09/27/22: patchy abnormal signal and enhancement predominantly in the posterior and lateral aspects of the cervical cord at the level of C4 and C6. MRI cervical spine w and w/o 01/17/24: Interval resolution of the previously seen patchy enhancementin the cervical cord at the levels of C4 and C6. 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 Extensive workup negative for mimicking to MS inflammatory disorders. Nooligoclonal bands in the CSF. He endorses leg spasms for which would like to try nature products first, including pickle juice, yellow mustard, tonic water, cont. Mag glycinate, patient also on Baclofen. Patient is hesitant to start a medication because suspects the inflammation is triggered by a COVID-19 virus. MRI from December show resolution of contrast in the inflammatory lesions. Neurological exam is abnorma The patient reports difficulty maintaining sleep, with periods of wakefulness throughout the night.Previous trials of sleep aids, including tobacco fan and Ambien, were not effective or poorly tolerated due to side effects. The patient has found some relief with Ambien RECOMMENDATIONS: 1. Continue to monitor with MRI brain, cervical and thoracic spine yearly for the next couple of years, for interval change/new demyelinating lesions. 2. Recommend starting a DMT, risk for developing MS. Discussed DMT options. Patient would like to think. 3. Patient prefers no change of Baclofen dose. He is committed to continue exercising to improve power, walking and steadiness. May consider Botox for spasticity. 4. Trial sleeping pills , will defer to PCP 5. Continue non-pharmacological interventions for muscle cramps, including hydration and dietary adjustments.. 6. Consider trial of Tizanidine (Zanaflex) at a very low dose, with close monitoring for tolerance and effectiveness. 7. Recommend daily intake of yogurt and fermented foods to support gut health. Advise on the reduction of refined sugars and increase in anti-inflammatory foods consistent with a Mediterranean diet. 8. Follow up in 6 months Thank you you very much for allowing me to participate in the care of this very pleasant patient . Please do not hesitate to call me should questions or concerns arise. Genie Hoffmann MD PhD Neurology A total of 40 minutes were spent [id number]-ep-voyw with the patient with greater than half of that time spent on counseling, complex decision making and coordination of care. A total of 20 minutes were spent non [id number]-ge-awfi today, prior and after this encounter on reviewing of medical records, medical imaging, and finalizing the documentation. 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
--- OUTSIDE RECORDS SUMMARY | 2024-12-04 20:30 | XMS_ITS | Encounter Summary ---
Author Organization [facility] Address [address] [place] [address] Care Team Providers Care Mechanical Tech Name Role Phone Catia Atkins MD Primary Care Provider [phone] Encounter Details Date Type Department Care Team (Latest Contact Info) Description 03/27/2023 Travel Social History Tobacco Use Types Packs/Day [...] on filedocumented in this encounter Care Teams Mechanical Tech Relationship Specialty Start Date End Date Catia Atkins MD [facility] [place] [id number] PCP - General 06/28/19 documented as of this encounter
--- OUTSIDE RECORDS SUMMARY | 2024-12-04 20:30 | XMS_ITS | Encounter Summary ---
Author Organization [facility] Care Team Providers Care Physician Assistant Name Role Phone Unavailable Primary Care Provider Unavailabl e Encounter Details Date Type Department Care Team (Late st Contact Info) Description 04/07/2015 - 04/07/2015 11:59 PM CDT Hospital Encounter [facility] Romana Adams DO [address] [facility] [address] [place] [address] Special screening for other conditions; Screening for malignant neoplasm of respiratory organ; Other emphysema (HCC); Solitary pulmonary nodule Social History Tobacco Use Types Packs/Day Years Used Date Smoking Tobacco: Never Assessed Sex and Gender Information Value Date Recorded Sex Assigned at Not on file Legal Sex Male 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 FINAL REPORT ACC# ??Date Time ??Exam [id number] April 07, 2015 12:33:[id number] Chest without contrast EXAMINATION: ?? Chest CT without contrast CLINICAL INFORMATION: Lung cancer screening; smoking history COMPARISON: None available TECHNIQUE: CT of the chest without contrast according to lung cancer screening protocol. Axial MIPs were obtained. FINDINGS: There is mild emphysema. There is a 3 mm right upper lobe nodule (series 3, image 150). There is mild linear atelectasis in the right lower lobe. There is no pleural effusion. The airways are patent. The heart is normal in size. Mild LAD calcification. There is no pericardial effusion. The ascending aorta are main pulmonary artery are normal in caliber. There is no hilar, mediastinal, or axillary lymphadenopathy. The visualized upper abdomen is unremarkable. The visualized bones are within normal limits. IMPRESSION: ?? Emphysema and a 3 mm right upper lobe nodule. Lung RADS category 2 (benign appearance or behavior). Continued annual screening is recommended in 12 months. Mild LAD calcification. Requested By: Dictated By: ?? YOMI PÉREZ M.D. ??on Apr 07 2015 ??1:08P This document has been electronically signed by: YOMI PÉREZ M.D. on Apr 07 2015 ??1:08P [id number] Procedure Note Provider, MD Celeste - 03/21/2017 YOMI PÉREZ M.D. FINAL REPORT ACC# Date Time Exam [id number] April 07, 2015 12:33:[id number] Chest without contrast EXAMINATION: Chest CT without contrast CLINICAL INFORMATION: Lung cancer screening; smoking history COMPARISON: None available TECHNIQUE: CT of the chest without contrast according to lung cancer screening protocol. Axial MIPs were obtained. FINDINGS: There is mild emphysema. There is a 3 mm right upper lobe nodule (series 3, image 150). There is mild linear atelectasis in the right lower lobe. There is no pleural effusion. The airways are patent. The heart is normal in size. Mild LAD calcification. There is no pericardial effusion. The ascending aorta are main pulmonary artery are normal in caliber. There is no hilar, mediastinal, or axillary lymphadenopathy. The visualized upper abdomen is unremarkable. The visualized bones are within normal limits. IMPRESSION: Emphysema and a 3 mm right upper lobe nodule. Lung RADS category 2 (benign appearance or behavior). Continued annual screening is recommended in 12 months. Mild LAD calcification. Requested By: Dictated By: YOMI PÉREZ M.D. on Apr 07 2015 1:08P This document has been electronically signed by: YOMI PÉREZ M.D. on Apr 07 2015 1:08P [id number] us Historical Provider MD GARDINER CT PROCEDURES Final R esult * US Retroperitoneal Limited (04/07/2015 11:55 AM CDT) Anatomical Region Laterality Modality Abdomen N/A Ultrasound 04/07/2015 11:5 5 AM CDT Narrative 04/07/2015 1:30 PM CDT CARLITOS LINDA M.D. FINAL REPORT ACC# ??Date Time ??Exam [id number] April 07, 2015 11:55:00 [id number] [place] EXAMINATION: ? AORTA SONOGRAM HISTORY: ??54-year-old male for abdominal aorta screening. FINDINGS: There is no abdominal aortic aneurysm. The infrarenal aorta measures 2.4 cm in anterior-posterior dimension, and 2.3 cm in transverse dimension. ??There are no atherosclerotic changes. The left proximal common iliac artery measures 10 mm, and the right proximal common iliac artery measures 9 mm. IMPRESSION: ?? No evidence of an abdominal aortic aneurysm. Requested By: Dictated By: ?? CARLITOS LINDA M.D. ??on Apr 07 2015 ??1:30P This document has been electronically signed by: CARLITOS LINDA M.D. on Apr 07 2015 ??1:30P Procedure Note Provider, MD Celeste - 03/21/2017 CARLITOS LINDA M.D. FINAL REPORT ACC# Date Time Exam [id number] April 07, 2015 11:55:00 [id number] [place] EXAMINATION: AORTA SONOGRAM HISTORY: 54-year-old male for abdominal aorta screening. FINDINGS: There is no abdominal aortic aneurysm. The infrarenal aorta measures 2.4 cm in anterior-posterior dimension, and 2.3 cm in transverse dimension. There are no atherosclerotic changes. The left proximal common iliac artery measures 10 mm, and the right proximal common iliac artery measures 9 mm. IMPRESSION: No evidence of an abdominal aortic aneurysm. Requested By: Dictated By: CARLITOS LINDA M.D. on Apr 07 2015 1:30P This document has been electronically signed by: CARLITOS LINDA M.D. on Apr 07 2015 1:30P us Historical Provider MD GARDINER US PROCEDURES Final R esult documented in this encounter Visit Diagnoses Diagnosis Special screening for other conditions Screening for malignant neoplasm of respiratory organ Special screening for malignant neoplasm of the respiratory organs Other emphysema (HCC) Other emphysema Solitary pulmonary nodule documented in this encounter
--- OUTSIDE RECORDS SUMMARY | 2024-12-04 20:30 | XMS_ITS | Encounter Summary ---
Author Organization [facility] Address [facility] [facility] [place] [address] Care Team Providers Care Rotary Cutter Feeder Name Role Phone Catia Atkins MD Primary Care Provider [phone] Encounter Details Date Type Department Care Team (Latest Contact Info) Description 01/17/2024 Travel Social History Tobacco Use Types Packs/Day [...] on filedocumented in this encounter Care Teams Rotary Cutter Feeder Relationship Specialty Start Date End Date Catia Atkins MD [facility] [place] [phone] PCP - General 06/28/19 documented as of this encounter
--- OUTSIDE RECORDS SUMMARY | 2024-12-04 20:30 | XMS_ITS | Encounter Summary ---
Author Organization [facility] Address [address] [place] [address] Care Team Providers Care Green Building Engineer Name Role Phone Titi Kitchen MD Primary Care Provider [phone] Reason for Visit * Reason Onset Date Comments Dr. Kitchen-records request 12/29/2017 Encounter Details Date Type Department Care Team (Late st Contact Info) Description 12/29/2017 Telephone [facility] Medical Group at the [address] [place] [address] Titi Kitchen MD [address] [place] [address] [address] [place] [address] Dr. 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 Roxi Greene (general surgery) Date needed: 12/30/17 Delivery method: Fax to [phone] Additional Comments: Sending high priority per timeframe of the patient's appointment (tomorrow morning). Please fax records pertaining. US DIRECTOR documented in this encounter Plan of Treatment Not on file documented as of this encounter Visit Diagnoses Not on filedocumented in this encounter Care Teams Green Building Engineer Relationship Specialty Start Date End Date Titi Kitchen MD [facility] [facility] [address] Andrzej DEL ANGEL [address] [place] [address] PCP - General Internal Medicine 11/27/17 documented as of this encounter
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
--- OUTSIDE RECORDS SUMMARY | 2024-12-04 20:30 | XMS_ITS | Encounter Summary ---
Author Organization [facility] Healthcare Address [address] [place] [address] Care Team Providers Care Clinical Veterinarian Name Role Phone Titi Kitchen MD Primary Care Provider [phone] Encounter Details Date Type Department Care Team (Late st Contact Info) Description 11/11/2017 2:13 PM CUSTOM FEED MILL OPERATOR HELPER - 11/11/2017 11:59 PM CUSTOM FEED MILL OPERATOR HELPER Hospital Encounter [facility] [phone] Titi Kitchen MD [facility] [address] [address] Discharge Disposition: Discharge to home or self [...] on file Legal Sex Male 9:02 PM CUSTOM FEED MILL OPERATOR HELPER Gender Identity Not on file Sexual Orientation [...] Procedure Name Priority Date/Time Associated Diagnosis Comments DISCHARGE LABORATORY CUMULATIVE REPORT 11/11/2017 12:00 AM CUSTOM FEED MILL OPERATOR HELPER documented in this encounter Results * DISCHARGE LABORATORY CUMULATIVE REPORT (11/11/2017 12:00 AM CUSTOM FEED MILL OPERATOR HELPER) Narrative 11/11/2017 12:00 AM CUSTOM FEED MILL OPERATOR HELPER Ordered by an unspecified provider. us Historical Provider LAB BLOOD ORDERABLES Iman l Result documented in this encounter Visit Diagnoses Not on filedocumented in this encounter Care Teams Clinical Veterinarian Relationship Specialty Start Date End Date Titi Kitchen MD [address] Andrzej [address] [place] [address] PCP - General Internal Medicine 09/11/17 11/13/17 documented as of this encounter
--- OUTSIDE RECORDS SUMMARY | 2024-12-04 20:30 | XMS_ITS | Encounter Summary ---
Author Organization [facility] Address [address] [place] [address] Care Team Providers Care Bookkeeping Assistant Name Role Phone Titi Kitchen MD Primary Care Provider [phone] Encounter Details Date Type Department Care Team (Latest Contact Info) Description 01/02/2018 Hospital Outpatient [facility] [address] [facility] [place] [address] Veda Rasmussen PA-C [address] [place] [address] Discharge Disposition: Home or Self Care Social History Tobacco Use Types Packs/Day Years Used Date Smoking Tobacco: Every Day Cigarettes Smokeless Tobacco: Never Alcohol Use Standard Drinks/Week Comments Yes 0 (1 standard drink = 0.6 oz pur e alcohol) Sex and Gender Information Value Date Recorded Sex Assigned at Not on file Gender Identity Not on file Sexual Orientation Not on file documented as of this encounter Plan of Treatment Not on file documented as of this encounter Procedures Procedure Name Priority Date/Time Associated Diagnosis Comments XR LUMBAR SPINE 2 OR 3VW Routine 01/02/2018 1:41 PM CORD SPLICER documented in this encounter Results * XR LUMBAR SPINE 2 OR 3VW (01/02/2018 1:41 PM CORD SPLICER) Anatomical Region Laterality Modality Spine Other Impressions 01/02/2018 1:56 PM CORD SPLICER Impression: Moderate degenerative change. This report was electronically signed by ELEUTERIO NORRIS MD ??on 01/02/2018 1:56 PM . Narrative 01/02/2018 1:56 PM CORD SPLICER Exam: ??XR SPINE LUMBAR 2 OR 3 [...] Veda Rasmussen PA-C DIAGNOSTIC IMAG ING ORDERABLES documented in this encounter Visit Diagnoses Diagnosis Low back pain Lumbago documented in this encounter Care Teams Bookkeeping Assistant Relationship Specialty Start Date End Date Titi Kitchen MD [facility] [facility] [address] Donnel[address] [address] PCP - General 12/30/17 06/27/19 documented as of this encounter
--- OUTSIDE RECORDS SUMMARY | 2024-12-04 20:30 | XMS_ITS | Encounter Summary ---
Author Organization [facility] Address [facility]3 [facility] [place] [address] Care Team Providers Care Python Django Developer Name Role Phone Catia Atkins MD Primary Care Provider [phone] Reason for Visit * Radiology Services (Routine) - Closed Specialty Diagnoses / Procedures Referred By Esperanzaac t Referred To Contact MRI Diagnoses Transverse myelitis (HCC) Procedures MRI THORACIC SPINE WWO CONT Genie Hoffmann MD [facility]4 [place] [address] [facility] Mri [address] [place] [address] Referral ID Status Reason Start Date Expiration Date Visits Re quested Visits Authorized [id number] Closed 10/30/2023 10/29/2024 1 1 Encounter Details Date Type Department Care Team (Latest Contact Info) Description 01/17/2024 2:45 PM DIRECTOR OF MARKETING [employer] PERFORMANCE ADS - 01/17/2024 11:59 PM [facility] Hospital [facility] [address] [place] [address] [facility] [place] [address] Discharge Disposition: Home or Self Care Social [...] / 24 hours. baclofen (Lioresal) 10 MG tabletIndications:Tra nsverse myelitis (HCC) Take 1 (one) tablet by mouth at bedtime May cause drowsiness. 90 tablet 3 03/27/2023 calcium carbonate (Calci-Chew) 1250 (500 Ca) MG chew tablet Take 1 (one) tablet by mouth 4 times daily as needed after meals/at bedtime for Heartburn Eliquis 2.5 MG tablet Take 2 (two) tablets by mouth 2 times daily 03/26/2023 Albuterol Sulfate 108 (90 Base) MCG/ACT 07/15/2024 bisacodyl (Dulcolax) 10 MG suppository Insert 1 (one) suppository into the rectum once daily as needed for Constipation 07/15/2024 Fluticasone Furoate 50 MCG/ACT AEPB 07/15/2024 loratadine (Claritin) 10 MG tablet Take 1 (one) tablet by mouth once daily 07/15/2024 magnesium 30 MG tablet Take 250 mg by mouth once daily 08/23/2024 Melatonin 3 MG 07/15/2024 ondansetron (Zofran) 4 MG tablet Take 1 (one) tablet by mouth every 6 hours as needed for Nausea/Vomiting 07/15/2024 pantoprazole EC (Protonix) 40 MG tablet Take 1 (one) tablet by mouth 2 times daily 07/15/2024 polyethylene glycol 3350 (Miralax) 17 g packet Take by mouth once daily 07/15/2024 terbinafine (LamISIL) 250 MG tablet TAKE 1 TABLET BY MOUTH EVERY DAY FOR 1 WEEK OF EACH MONTH FOR 4 MONTHS 07/27/2023 07/15/2024 documented as of this encounter Plan of Treatment Not on file documented as of this encounter Procedures Procedure Name Priority Date/Time Associated Diagnosis Comments MRI THORACIC SPINE WWO CONT Routine 01/17/2024 5:34 PM DIRECTOR OF MARKETING [employer] PERFORMANCE ADS Transverse myelitis (HCC) CREATININE - POCT INTERFACED Routine 01/17/2024 2:37 PM DIRECTOR OF MARKETING [employer] PERFORMANCE ADS documented in this encounter Results * MRI THORACIC SPINE WWO CONT (01/17/2024 5:34 PM DIRECTOR OF MARKETING [employer] PERFORMANCE ADS) Anatomical Region Laterality Modality Spine Magnetic Resonan ce 01/17/2024 8:32 PM DIRECTOR OF MARKETING [employer] PERFORMANCE ADS Impressions 01/18/2024 8:10 PM DIRECTOR OF MARKETING [employer] PERFORMANCE ADS IMPRESSION: 1.Interval resolution of the previously seen [...] 01/18/2024 8:10 PM Narrative 01/18/2024 8:10 PM DIRECTOR OF MARKETING [employer] PERFORMANCE ADS PROCEDURE: ??MRI BRAIN WWO CONTRAST, MRI CERVICAL SPINE WWO CONT, MRI THORACIC SPINE WWO CONT, DATE/TIME OF EXAM: ??01/17/2024 5:33 PM, LOCATION [facility] INDICATION: G37.3: Transverse myelitis ([facility]-HCC) ADDITIONAL CLINICAL INFORMATION: Ordering Provider Reason For [...] DATE/TIME OF EXAM: 01/17/2024 5:33 PM, LOCATION [facility] INDICATION: G37.3: Transverse myelitis ([facility]-HCC) ADDITIONAL CLINICAL INFORMATION: Ordering Provider Reason For [...] CREATININE - POCT INTERFACED (01/17/2024 2:37 PM DIRECTOR OF MARKETING [employer] PERFORMANCE ADS) Creatinine POCT 0.68 0.30 - 1.30 mg/dL 01/17/2024 2:45 PM DIRECTOR OF MARKETING [employer] PERFORMANCE ADS [facility] Comment:Range ok for MRI eGFR >90 >90 mL/min/1.7 3 m2 01/17/2024 2:45 PM DIRECTOR OF MARKETING [employer] PERFORMANCE ADS [facility] Blood BLOOD SPECIMEN / Unknown 01/17/2024 2:37 PM DIRECTOR OF MARKETING [employer] PERFORMANCE ADS 01/17/2024 2:45 PM DIRECTOR OF MARKETING [employer] PERFORMANCE ADS Genie Hoffmann MD LAB - POINT OF CARE ORDERABLES [facility] [address] [place] [phone], [facility] [phone] documented in this encounter Visit Diagnoses Diagnosis Transverse myelitis (HCC) Other causes of myelitis documented in this encounter Care Teams Python Django Developer Relationship Specialty Start Date End Date Catia Atkins MD [facility] [place] [id number] PCP - General 06/28/19 documented as of this encounter
--- OUTSIDE RECORDS SUMMARY | 2024-12-04 20:30 | XMS_ITS | Encounter Summary ---
Author Organization [facility] Address [facility]3 [facility] [place] [address] Care Team Providers Care Drug Abuse Program Coordinator Name Role Phone Titi Kitchen MD Primary Care Provider [phone] Reason for Visit * Reason Onset Date Comments Reminder Call 06/25/2019 confirmed appt a nd details w/pt Encounter Details Date Type Department Care Team (Late st Contact Info) Description 06/25/2019 Telephone [facility] Neurosurgery [address] [place] [address] Aden Atkinson MD [address] [place] [address] Reminder Call (confirmed appt and details w/pt) Social History Tobacco Use Types Packs/Day Years [...] encounter Miscellaneous Notes * Telephone Encounter - Kailey Sandoval - 06/25/2019 9:37 AM CDT confirmed appt and details w/pt documented in this encounter Plan of Treatment Not on file documented as of this encounter Visit Diagnoses Not on filedocumented in this encounter Care Teams Drug Abuse Program Coordinator Relationship Specialty Start Date End Date Titi Kitchen MD [address] [place] [address] DR Andrzej DEL ANGEL [address] [place] [address] PCP - General 12/30/17 06/27/19 documented as of this encounter
--- OUTSIDE RECORDS SUMMARY | 2024-12-04 20:30 | XMS_ITS | Encounter Summary ---
Author Organization [facility] Address [address] [facility] [place] [address] Care Team Providers Care Hand Pattern Marker Name Role Phone Titi Kitchen MD Primary Care Provider [phone] Encounter Details Date Type Department Care Team (Late st Contact Info) Description 03/25/2019 Orders Only [facility] - Orthopedics [address] [place] [address] [place] [address] Dewayne Syed RN Low back pain, unspecified back pain laterality, unspecified chronicity, with sciatica presence unspecified Social History Tobacco Use Types Packs/Day Years [...] documented as of this encounter Results * XR SPINE ENTIRE 2 OR 3VW [...] Kerri Leija MD DIAGNOSTIC IMAGING O RDERABLES documented in this encounter Visit Diagnoses Diagnosis Low back pain, unspecified back pain laterality, unspecified chronicity, with sciatica presence unspecified- Primary Low back pain, unspecified back pain laterality, unspecified chronicity, with sciatica presence unspecified documented in this encounter Care Teams Hand Pattern Marker Relationship Specialty Start Date End Date Titi Kitchen MD [address] [place] [address] DR Andrzej DEL ANGEL [address] [place] [address] PCP - General 12/30/17 06/27/19 documented as of this encounter
--- OUTSIDE RECORDS SUMMARY | 2024-12-04 20:30 | XMS_ITS | Encounter Summary ---
Author Organization [facility] Address [facility]3 [place] [address] Care Team Providers Care Fur Feeder Name Role Phone Catia Atkins MD Primary Care Provider [phone] Encounter Details Date Type Department Care Team (Latest Contact Info) Description 03/10/2024 Travel Social History Tobacco Use Types Packs/Day [...] on filedocumented in this encounter Care Teams Fur Feeder Relationship Specialty Start Date End Date Catia Atkins MD [facility] [place] [address] PCP - General 06/28/19 documented as of this encounter
--- OUTSIDE RECORDS SUMMARY | 2024-12-04 20:30 | XMS_ITS | Encounter Summary ---
Author Organization [facility] Address [facility]3 [facility] [place] [address] Care Team Providers Care Mononitrotoluene Operator Name Role Phone Catia Atkins MD Primary Care Provider [phone] Reason for Referral * Radiology Services (Routine) - Closed Specialty Diagnoses / Procedures Referred By Contac t Referred To Contact MRI Diagnoses Transverse myelitis (HCC) Procedures MRI THORACIC SPINE WWO Genie Orozco MD [facility] [place] [address] [facility] Mri [address] [place] [phone] Referral ID Status Reason Start Date Expiration Date Visits Re quested Visits Authorized [id number] Closed 10/30/2023 10/29/2024 1 1 KFEED MILLER * Radiology Services (Routine) - Closed Specialty Diagnoses / Procedures Referred By Contac t Referred To Contact MRI Diagnoses Transverse myelitis (HCC) Procedures MRI CERVICAL SPINE WWO Genie Orozco MD [address] [place] [address] [facility] Mri [address] [place] [phone] Referral ID Status Reason Start Date Expiration Date Visits Re quested Visits Authorized [id number] Closed 10/30/2023 10/29/2024 1 1 KFEED MILLER * Radiology Services (Routine) - Closed Specialty Diagnoses / Procedures Referred By Manju almaguer Referred To Contact MRI Diagnoses Transverse myelitis (HCC) Procedures MRI BRAIN WWO CONTRAST Genie Hoffmann MD [address] [place] [address] [facility] Mri [address] [place] [address] Referral ID Status Reason Start Date Expiration Date Visits Re quested Visits Authorized [id number] Closed 10/30/2023 10/29/2024 1 1 KFEED MILLER Encounter Details Date Type Department Care Team (Late st Contact Info) Description 10/29/2023 2:00 PM STOCKFEED MILLER Office Visit [facility] - Neurology [address] [facility], [place] [address] Genie Hoffmann MD [address] [place] [address] Transverse myelitis (HCC) (Primary Dx) Social History Tobacco Use [...] Sign Reading Time Taken Comments Blood Pressure 147/91 10/29/2023 2:16 PM STOCKFEED MILLER Pulse 83 10/29/2023 2:16 PM STOCKFEED MILLER Temperature 35.8 ??C (96.5 ??F) 10/29/2023 2:16 PM CS T Respiratory Rate - - Oxygen Saturation 98% 10/29/2023 2:16 PM STOCKFEED MILLER Inhaled Oxygen Concentration - - Weight 81.6 kg (180 lb) 10/29/2023 2:16 PM STOCKFEED MILLER Height - - Body Mass Index 25.83 09/27/2022 7:42 PM CDT documented in this [...] this encounter Patient Instructions * Patient Instructions* Genie Hoffmann MD - 10/29/2023 2:57 PM STOCKFEED MILLER Clinically isolated syndrome Repeat Brain MRI w and w/o con, C spine MRI, T spine MRI down to the conus Discussed treatment options Terriflunamide, Tecfidera, Zepisoa. Patient wants to think Muscle spasms picklejuice, yellow mustard, tonic water, cont Mag glycinate ; uptitrating baclofen or starting Tizanidine - we will discuss after the 2 week trial of the nature products KFEED MILLER documented in this encounter Progress Notes * Genie Hoffmann MD - 10/29/2023 2:06 PM CST NEUROLOGY OUTPATIENT PROGRESS NOTE Date: 10/29/2023 Chief Complaint: Follow up re TM HISTORY OF PRESENT ILLNESS: I saw Binu Justin in a return consultation for a history of transverse myelitis,suspected postinfectious on 10/29/23. He is a very pleasant 62 year old right handed male with a PMH of sacroiliitis, who was last seen by my colleague Dr. Pham on 03/27/23 Patient came alone and provided the interim history.I also reviewed EMR. Pertinent Multiple Sclerosis history is obtained from previous Neurologist's note Per patient he had COVID-19 in mid Julmeber with symptoms of rhinorrhea, congestion, myalgias and [...] over his abdomen and was readmitted to [facility] where MRI C spine foundcervical transverse myelitis. He was given another 3 days of high dose steroids and discharged to rehab again. Per facility no CSF infectious or autoimmune has panel has returned positive. ?? He was admitted here at [facility] in early September 2022 for recurrence of [...] 143 (H) Interval History Since last seen, he patient has been [...] (Patient not taking: Reported on 03/27/2023) ??? loratadine (Claritin) 10 MG tablet Take [...] g packet Take by mouth once daily No current facility-administered medications for this visit. [...] Housing Stability: Not on file EXAMINATION: BP 147/91 Pulse 83 Temp 96.5 ??F (35.8 ??C) (Temporal) Wt 81.6 kg (180 lb) SpO2 98% Physical: General: alert and oriented. No acute [...] 10/01/2022 BCR 28 (H) 10/01/2022 EGFR >90 10/01/2022 NA 137 10/01/2022 CL 106 10/01/2022 CO2 [...] IMPRESSION: Binu dunn is a very pleasant 62 year old male with a PMH of [...] A total of 40 minutes were spent zibx-wg-gzgw with the patient with greater than half of that time spent on counseling, complex decision making and coordination of care. A total of 20 minutes were spent non gypy-ym-liop today, prior and after this encounter on reviewing of medical records, medical imaging, and finalizing the documentation. KFEED MILLER documented in this encounter Plan of Treatment Not on file documented as of this encounter Results * MRI THORACIC SPINE WWO CONT (01/17/2024 5:34 PM STOCKFEED MILLER) Anatomical Region Laterality Modality Spine Magnetic Resonan ce 01/17/2024 8:32 PM STOCKFEED MILLER Impressions 01/18/2024 8:10 PM STOCKFEED MILLER IMPRESSION: 1.Interval resolution of the previously seen [...] 01/18/2024 8:10 PM Narrative 01/18/2024 8:10 PM STOCKFEED MILLER PROCEDURE: ??MRI BRAIN WWO CONTRAST, MRI CERVICAL SPINE WWO CONT, MRI THORACIC SPINE WWO CONT, DATE/TIME OF EXAM: ??01/17/2024 5:33 PM, LOCATION [facility] INDICATION: G37.3: Transverse myelitis ([facility]) ADDITIONAL CLINICAL INFORMATION: Ordering Provider Reason For [...] tissue abnormality is identified. Procedure Note Susana rGaf MD - 01/18/2024 PROCEDURE: MRI BRAIN WWO CONTRAST, MRI CERVICAL SPINE WWO CONT, MRI THORACIC SPINE WWO CONT, DATE/TIME OF EXAM: 01/17/2024 5:33 PM, LOCATION [facility] INDICATION: G37.3: Transverse myelitis ([facility]) ADDITIONAL CLINICAL INFORMATION: Ordering Provider Reason For [...] Susana Graf MD on 01/18/2024 8:10 PM Authorizing Provider Result Pauline Hoffmann MD MR ORDERABLES * MRI CERVICAL SPINE WWO CONT (01/17/2024 5:33 PM STOCKFEED MILLER) Anatomical Region Laterality Modality Spine Magnetic Resonan ce 01/17/2024 8:32 PM STOCKFEED MILLER Impressions 01/18/2024 8:10 PM STOCKFEED MILLER IMPRESSION: 1.Interval resolution of the previously seen [...] 01/18/2024 8:10 PM Narrative 01/18/2024 8:10 PM STOCKFEED MILLER PROCEDURE: ??MRI BRAIN WWO CONTRAST, MRI CERVICAL SPINE WWO CONT, MRI THORACIC SPINE WWO CONT, DATE/TIME OF EXAM: ??01/17/2024 5:33 PM, LOCATION [facility] INDICATION: G37.3: Transverse myelitis ([facility]) ADDITIONAL CLINICAL INFORMATION: Ordering Provider Reason For [...] [facility] INDICATION: G37.3: Transverse myelitis ([facility]) ADDITIONAL CLINICAL INFORMATION: Ordering Provider Reason For [...] MRI BRAIN WWO CONTRAST (01/17/2024 5:30 PM STOCKFEED MILLER) Anatomical Region Laterality Modality Head Magnetic Resonan ce 01/17/2024 8:32 PM STOCKFEED MILLER Impressions 01/18/2024 8:10 PM STOCKFEED MILLER IMPRESSION: 1.Interval resolution of the previously seen [...] 01/18/2024 8:10 PM Narrative 01/18/2024 8:10 PM STOCKFEED MILLER PROCEDURE: ??MRI BRAIN WWO CONTRAST, MRI CERVICAL SPINE WWO CONT, MRI THORACIC SPINE WWO CONT, DATE/TIME OF EXAM: ??01/17/2024 5:33 PM, LOCATION [facility] INDICATION: G37.3: Transverse myelitis ([facility]) ADDITIONAL CLINICAL INFORMATION: Ordering Provider Reason For [...] [facility] INDICATION: G37.3: Transverse myelitis ([facility]-HCC) ADDITIONAL CLINICAL INFORMATION: Ordering Provider Reason For [...] 8:10 PM Genie Hoffmann MD MR ORDERABLES documented in this encounter Visit Diagnoses Diagnosis Transverse myelitis (HCC)- Primary Other causes of myelitis Transverse myelitis (HCC) Other causes of myelitis Transverse myelitis (HCC) Other causes of myelitis Transverse myelitis (HCC) Other causes of myelitis documented in this encounter Care Teams Mononitrotoluene Operator Relationship Specialty Start Date End Date Catia Atkins MD [facility] [place] [phone] PCP - General 06/28/19 documented as of this encounter
--- OUTSIDE RECORDS SUMMARY | 2024-12-04 20:30 | XMS_ITS | Encounter Summary ---
Author Organization [facility] Facility Care Team Providers Care Hemmer Automatic Name Role Phone Unavailable Primary Care Provider Unavailabl e Encounter Details Date Type Department Care Team (Latest Contact Info) Description 04/12/2015 10:51 AM CDT - 04/12/2015 2:10 PM CDT Hospital Encounter [facility] Jean Mann MD PhD [address] [place] [address] Internal hemorrhoids with other complication; Benign neoplasm of colon Social History Tobacco Use Types Packs/Day Years Used Date Smoking Tobacco: Never Assessed Sex and Gender Information Value Date Recorded Sex Assigned at Not on file Legal Sex Male 9:02 PM SATELLITE COMMUNICATIONS ENGINEER Gender Identity Not on file Sexual Orientation Not on file documented as of this encounter Plan of Treatment Not on file documented as of this encounter Procedures Procedure Name Priority Date/Time Associated Diagnosis Comments COLONOSCOPY REPORT 04/12/2015 SURGICAL PATHOLOGY 04/12/2015 documented in this encounter Results * Surgical pathology (04/12/2015) Narrative 04/12/2015 Ordered by an unspecified provider. Historical Provider LAB PATHOLOGY ORDERABLES Final Result * COLONOSCOPY REPORT (04/12/2015) Anatomical Region Laterality Modality Other Narrative 04/12/2015 Ordered by an unspecified provider. Historical Provider GI PROCEDURE ORDERABLES F inal Result documented in this encounter Visit Diagnoses Diagnosis Internal hemorrhoids with other complication Benign neoplasm of colon documented in this encounter
--- OUTSIDE RECORDS SUMMARY | 2024-12-04 20:30 | XMS_ITS | Encounter Summary ---
Author Organization [facility] Address [address] [facility] [facility] [address] [place] [address] Care Team Providers Care Rhinologist Name Role Phone Titi Kitchen MD Primary Care Provider [phone] Reason for Visit * Reason Onset Date Comments Lieu-medical question 11/27/2017 Encounter Details Date Type Department Care Team (Late st Contact Info) Description 11/27/2017 Telephone [facility] Medical Group at the [address] [place] [address] Titi Kitchen MD [address] [place] [address] [address] [place], [place] [id number] Lieu-medical question Social History Tobacco Use Types Packs/Day Years Used Date Smoking Tobacco: Every Day Cigarettes 1 35 Smokeless Tobacco: Never Alcohol Use Standard Drinks/Week Comments Yes 0 (1 standard drink = 0.6 oz pur e alcohol) 1/2 pint per week Sex and Gender Information Value Date Recorded Sex Assigned at Not on file Legal Sex Male 9:02 PM MAILING 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 Greene Date needed: isabel so patients appointment can be scheduled Delivery method: Additional Comments: Referral was received ING MACHINE HELPER * Telephone Encounter - Ilana Michaels MA - 12/02/2017 9:47 AM MAILING MACHINE HELPER Refaxed and confirmed receipt Sharri advised ING MACHINE HELPER * Telephone Encounter - Ana Maria Michaels - 12/02/2017 9:07 AM CST Sharri patients spouse called to notify office that Dr. Greene Has not received physicians order requested 11/27/17 for colorectal surgery. Please refax order [phone]. Sharri would like to be notified at [phone] once completed. ING MACHINE HELPER * Telephone Encounter - Ilana Michaels MA - 11/27/2017 4:02 PM MAILING MACHINE HELPER Faxed manually No vm to advise Sharri ING MACHINE HELPER * Telephone Encounter - Ana Maria Michaels - 11/27/2017 3:19 PM CST Sharri patients spouse called to request physicians referral be faxed to Dr. Roxi Greene (general surgeon)office, for colorectal surgery. Sharri stated patient is unable to schedule appointment until order has been received. Please fax order to [phone]. Sharri can be reached at [phone] if needed ING MACHINE HELPER documented in this encounter Plan of Treatment Not on file documented as of this encounter Visit Diagnoses Not on filedocumented in this encounter Care Teams Rhinologist Relationship Specialty Start Date End Date Titi Kitchen MD [facility] [facility] [address] Andrzej DEL ANGEL [address] [place] [id number] PCP - General Internal Medicine 11/27/17 documented as of this encounter
--- OUTSIDE RECORDS SUMMARY | 2024-12-04 20:30 | XMS_ITS | Encounter Summary ---
Author Organization [facility] Address [facility] [place] [address] Care Team Providers Care Class 1 Owner Operator Name Role Phone Titi Kitchen MD Primary Care Provider [phone] Encounter Details Date Type Department Care Team (Late st Contact Info) Description 03/29/2019 1:51 PM CDT - 03/29/2019 11:59 PM CDT Hospital Encounter [facility] DIAGNOSTIC RAD [facility] [address] [facility] [place] [address] Kerri Leija MD [address] [facility] [place], [place] [id number] Discharge Disposition: Home or Self Care Social [...] on file documented as of this encounter Medications at Time of Discharge Medication Sig Dispensed Refills Start Date End Date Cyclobenzaprine HCl (FLEXERIL PO) 09/28/2022 TRAMADOL HCL PO 09/28/2022 documented as of this encounter Plan of Treatment Not on file documented as of this encounter Procedures Procedure Name Priority Date/Time Associated Diagnosis Comments XR SPINE ENTIRE 2 OR 3VW Routine 03/29/2019 2:02 PM CDT Low back pain, unspecified back pain laterality, unspecified chronicity, with sciatica presence unspecified documented in this encounter Results * XR SPINE ENTIRE [...] unspecified documented in this encounter Care Teams Class 1 Owner Operator Relationship Specialty Start Date End Date Titi Kitchen MD [address] [place] [address] DR Andrzej DEL ANGEL [address] [place] [phone] PCP - General 12/30/17 06/27/19 documented as of this encounter
--- OUTSIDE RECORDS SUMMARY | 2024-12-04 20:30 | XMS_ITS | Encounter Summary ---
Author Organization [facility] Address [address] [place] [address] Care Team Providers Care Supervisor Aluminum Fabrication Name Role Phone Catia Atkins MD Primary Care Provider [phone] Reason for Visit * Reason Onset Date Comments Results 05/02/2023 Encounter Details Date Type Department Care Team (Late st Contact Info) Description 05/02/2023 Telephone [facility] - [facility]rology [facility] [place] [phone] Yuri Pham MD [address] [place] [address] Results Social History Tobacco Use Types Packs/Day Years [...] encounter Miscellaneous Notes * Telephone Encounter - Vanessa Lockett, RN - 05/02/2023 10:50 AM CDT Received message from spouse requesting results of lab work from 03/27/23. Spouse can be reached at [phone]. Per Dr. Pham:All labs have returned negative. The diagnosis is post infectious myelitis in the setting of COVID-19 , like we discussed in clinic. No need for additional tests. Left message for spouse with above information. documented in this encounter Plan of Treatment Not on file documented as of this encounter Visit Diagnoses Not on filedocumented in this encounter Care Teams Supervisor Aluminum Fabrication Relationship Specialty Start Date End Date Catia Atkins MD [address] [place] [address] [address] [place] [address] PCP - General 06/28/19 documented as of this encounter
--- OUTSIDE RECORDS SUMMARY | 2024-12-04 20:30 | XMS_ITS | Encounter Summary ---
Author Organization [facility] Care Team Providers Care Resource Management Specialist Name Role Phone Unavailable Primary Care Provider Unavailabl e Encounter Details Date Type Department Care Team (Late st Contact Info) Description 07/16/2008 1:34 PM CDT - 07/16/2008 6:48 PM CDT Hospital Encounter [facility] Rigo Faustin MD [address] [place] [address] [place] [address] Sciatica; Tobacco use disorder; Cannabis abuse Social History Tobacco Use Types Packs/Day Years Used Date Smoking Tobacco: Never Assessed Sex and Gender Information Value Date Recorded Sex Assigned at Not on file Legal Sex Male 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
--- OUTSIDE RECORDS SUMMARY | 2024-12-04 20:30 | XMS_ITS | Encounter Summary ---
Author Organization [facility] Address [address] [place] [address] Care Team Providers Care Jboss Architect Name Role Phone Titi Kitchen MD Primary Care Provider [phone] Reason for Visit * Reason Onset Date Comments re: colorectal referral 11/13/2017 Encounter Details Date Type Department Care Team (Late st Contact Info) Description 11/13/2017 Telephone [facility] at the [address] [place] [address] Titi Kitchen MD [address] [place] [address] [address] [place], [place] [phone] re: colorectal referral Social History Tobacco Use Types Packs/Day Years Used Date Smoking Tobacco: Every Day Cigarettes 1 35 Smokeless Tobacco: Never Alcohol Use Standard Drinks/Week Comments Yes 0 (1 standard drink = 0.6 oz pur e alcohol) 1/2 pint per week Sex and Gender Information Value Date Recorded Sex Assigned at Not on file Legal Sex Male 9:02 PM RESIDENTIAL THERAPIST Gender Identity Not on file Sexual Orientation Not on file 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 DENTIAL THERAPIST * Telephone Encounter - Maria Dolores Holloway MA - 11/13/2017 12:00 PM CST Fwd to Jeannette DENTIAL THERAPIST * Telephone Encounter - Cassie Ha - 11/13/2017 11:51 AM CST Patient's spouse states that Last Menendez is covered under insurance. Would like to schedule an appointment for after . Please contact at [phone] DENTIAL THERAPIST * Telephone Encounter - Jeannette Pitts - 11/13/2017 11:35 AM CST Informed pt that the Dr's name is Last Menendez.. DENTIAL THERAPIST * Telephone Encounter - Cassie Ha - 11/13/2017 11:14 AM CST Patient's spouse states that she would like to find out the doctors name that will be doing patient's surgery so she can call insurance to make sure doctor is covered. Please contact at [phone] DENTIAL THERAPIST * Telephone Encounter - Jeannette Pitts - 11/13/2017 10:49 AM CST S w pt per pt and they are going to contact their insurance company and give us a call back regarding colorectal referrral to see if it is covered . DENTIAL THERAPIST documented in this encounter Plan of Treatment Not on file documented as of this encounter Visit Diagnoses Not on filedocumented in this encounter Care Teams Jboss Architect Relationship Specialty Start Date End Date Titi Kitchen MD [facility] [address] Andrzej DEL ANGEL [address] [place] [address] PCP - General Internal Medicine 09/11/17 11/13/17 documented as of this encounter
--- OUTSIDE RECORDS SUMMARY | 2024-12-04 20:30 | XMS_ITS | Encounter Summary ---
Author Organization [facility] Address [address] [place], [place] [address] [address] Care Team Providers Care Electronic Bench Technician Name Role Phone Titi Kitchen MD Primary Care Provider [phone] Reason for Visit * Reason Comments Pain Back Encounter Details Date Type Department Care Team (Late st Contact Info) Description 03/29/2019 1:45 PM CDT Office Visit [facility] - Orthopedics [address] [place] [address], [place] [phone] Kerri Leija MD [address] [place] [address] OF ORTHOPEDIC SURGERY [place], [place] [id number] Foraminal stenosis of lumbar region (Primary Dx); Low back pain, unspecified back pain laterality, [...] Sign Reading Time Taken Comments Blood Pressure - - Pulse - - Temperature - - Respiratory Rate - - Oxygen Saturation - - Inhaled Oxygen Concentration - - Weight 79.4 kg (175 lb) 03/29/2019 2:04 PM CDT Height 177.8 cm (5' 10) 03/29/2019 2:04 PM CDT Body Mass Index 25.11 03/29/2019 2:04 PM CDT documented in this encounter Patient Instructions * Patient Instructions* Chalo Parrish MD - 03/29/2019 2:42 PM CDT Continue physical therapy exercises Continue conservative therapies including rest, anti-inflammatory medications, and pain management per your primary care physician Smoking cessation Recommend referral for injection - please call if you would like to schedule Follow up as needed documented in this encounter Progress Notes * Chalo Parrish MD - 03/29/2019 2:09 PM CDT [facility] Orthopedic Spine Surgery Clinic Note Binu Justin, 58 year old, male : 1960 CSN: [id number] Primary Care Physician: Titi Kitchen MD Diagnosis/Procedures 1.) R L4/5 foraminal stenosis Date of Injury: na Date of Surgery: na Time Since injury/surgery: na HPI Date of this clinic visit: 03/29/2019 This is a 58 year old male who is here for new patient clinic appointment, regarding pain of the lumbar spine. Pain is located diffusely over the low back and is described as sharp/stabbing with radiation to the right foot. Patient does not have pain at night. Patient is able to walk/stand for 1-2 blocks without pain. Ambulates independently. For pain control the patient has used gabapentin and NSAIDs with some relief. Rest makes it better and activity, particularly bending, makes it worse. They have participated in PT in the past. They have not received steroid injections in the past. Patient reports also using an inversion table at home which provides complete but very short relief. Denies new numbness/paresthesias or bowel/bladder retention or incontinence. ROS otherwise negative. Smoking status: current 1 PPD smoker Pertinent Background Information: Occupation: currently unable to work. 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 PSHx Past Surgical History: Procedure Laterality Date ??? Appendectomy ??? HX OF HAND SURGERY Social Hx Social History Substance Use Topics ??? Smoking status: Current Every Day Smoker Packs/day: 1.00 ??? Smokeless tobacco: Never Used ??? Alcohol use Yes Family Hx family history includes Arthritis - Osteo in his mother; None Known in his father. Allergies No Known Allergies Medications Current Outpatient Prescriptions Medication ??? Cyclobenzaprine HCl (FLEXERIL PO) ??? TRAMADOL HCL PO No current facility-administered medications for this visit. Review of Systems - Bowel/Bladder incontinence or retention: denies - Numbness/paresthesias to extremities: denies - Hand clumsiness/loss of fine motor skills: denies - Balance problems: denies Review of all other systems was negative. Physical Exam General appearance: awake, cooperative, NAD Neck: -Tenderness to palpation: none -ROM: full range of motion Back: -Tenderness to palpation: yes, midline and paraspinally over L4-5 Posture - Erect posture with no cervical thrust, list, or torticollis noted Bilateral Upper Extremity: - Motor: Shoulder Abduction (C5) 5/5 Elbow Extension (C7) 5/5 Elbow Flexion (C5-palm up; C6 - thumb up) 5/5 Wrist Extension (C6) 5/5 Wrist Flexion (C7) 5/5 Finger Flexion (C8) 5/5 Finger Abduction (T1) 5/5 - Sensory: intact to light touch - Phoenix's sign is negative - Reflexes: Biceps: Normal Triceps: Normal BR: Normal Bilateral Lower Extremity: - Motor: Hip Flexion (L2/3) 5/5 Knee Flexion 5/5 Knee Extension (L4) 5/5 Ankle Dorsiflexion (L5) 5/5 Great Toe Extension (L5) 5/5 Ankle Plantarflexion (S1) 5/5 - Sensation: intact to light touch distally - Straight Leg Raise: unable to perform due to pain - Clonus: absent - Reflexes: Knee Jerk: Normal Achilles: Normal Gait - Walks with reciprocal heel/toe gait Imaging - XR and MRI lumbar spine reviewed. Demonstrates diffuse degenerative changes and spondylosis with loss of disc height at L3-5. There is [id number] right L4/5 foraminal and lateral recess stenosis Assessment/Plan: 58 year old male with right L4/5 foraminal stenosis with low back pain - Patient was counseled to the nature of their diagnosis and demonstrated understanding - Lifting/Activity restrictions: none - Recommend referral for injection. Patient to call if he is interested in scheduling - Advised smoking cessation - Continue conservative therapies including rest, anti-inflammatory medications. Recommend discussing pain management with primary care physician - Follow up as needed with Dr. Leija - Follow up Imaging: No Chalo Parrish MD 03/29/2019 2:09 PM I have seen and examined the patient with the resident on and I agree with the findings and plan ofcare as documented by resident. I spent more than 30 minutes seeing patient, reviewing images and discussion case with colleagues and formulating the plan. Greater than 50% of that time was spent in counseling and/or coordination of care. Plan for Home exercises .NSAIDs. 03/29/19 Kerri Leija MD Manager Front Office of Orthopaedics Adult and Pediatric Spine Surgery documented in this encounter Plan of Treatment Not on file documented as of this encounter Visit Diagnoses Diagnosis Foraminal stenosis of lumbar region- Primary Spinal stenosis, lumbar region, without neurogenic claudication Low back pain, unspecified back pain laterality, unspecified chronicity, with sciatica presence unspecified documented in this encounter Care Teams Electronic Bench Technician Relationship Specialty Start Date End Date Titi Kitchen MD [address] Andrzej DEL ANGEL [address] [place] [address] PCP - General 12/30/17 06/27/19 documented as of this encounter
--- OUTSIDE RECORDS SUMMARY | 2024-12-04 20:30 | XMS_ITS | Encounter Summary ---
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
--- OUTSIDE RECORDS SUMMARY | 2024-12-04 20:30 | XMS_ITS | Encounter Summary ---
Author Organization [facility] Address [address] [facility] [place] [address] Care Team Providers Care Survey Researcher Name Role Phone Catia Atkins MD Primary Care Provider [phone] Encounter Details Date Type Department Care Team (Latest Contact Info) Description 10/29/2023 Travel Social History Tobacco Use Types Packs/Day [...] on filedocumented in this encounter Care Teams Survey Researcher Relationship Specialty Start Date End Date Catia Atkins MD [facility] [place] [phone] PCP - General 06/28/19 documented as of this encounter
--- OUTSIDE RECORDS SUMMARY | 2024-12-04 20:30 | XMS_ITS | Encounter Summary ---
Author Organization [facility] Address [facility] [facility] [place] [address] Care Team Providers Care Section Hand Helper Name Role Phone Catia Atkins MD Primary Care Provider [phone] Reason for Visit * Radiology Services (Routine) - Closed Specialty Diagnoses / Procedures Referred By Manju almaguer Referred To Contact MRI Diagnoses Transverse myelitis (HCC) Procedures MRI BRAIN WWO CONTRAST Genei Hoffmann MD [facility] [place] [address] [facility] Mri [address] [place] [address] Referral ID Status Reason Start Date Expiration Date Visits Re quested Visits Authorized [id number] Closed 10/30/2023 10/29/2024 1 1 Encounter Details Date Type Department Care Team (Latest Contact Info) Description 01/17/2024 2:30 PM SHAKER OPERATOR - 01/17/2024 2:44 PM [facility] Hospital Encounter [facility] MRI [address] [place] [address] Genie Hoffmann MD [facility] [place] [address] Discharge Disposition: Home or Self [...] Name Priority Date/Time Associated Diagnosis Comments MRI BRAIN WWO CONTRAST Routine 01/17/2024 5:30 PM SHAKER OPERATOR Transverse myelitis (HCC) documented in this encounter Results * MRI BRAIN WWO CONTRAST (01/17/2024 5:30 PM SHAKER OPERATOR) Anatomical Region Laterality Modality Head Magnetic Resonan ce 01/17/2024 8:32 PM SHAKER OPERATOR Impressions 01/18/2024 8:10 PM SHAKER OPERATOR IMPRESSION: 1.Interval resolution of the previously seen [...] 01/18/2024 8:10 PM Narrative 01/18/2024 8:10 PM SHAKER OPERATOR PROCEDURE: ??MRI BRAIN WWO CONTRAST, MRI CERVICAL SPINE WWO CONT, MRI THORACIC SPINE WWO CONT, DATE/TIME OF EXAM: ??01/17/2024 5:33 PM, LOCATION [facility] INDICATION: G37.3: Transverse myelitis ([facility]-HCC) ADDITIONAL CLINICAL INFORMATION: Ordering Provider Reason For [...] DATE/TIME OF EXAM: 01/17/2024 5:33 PM, LOCATION [facility] INDICATION: G37.3: Transverse myelitis (CMS-HCC) ADDITIONAL CLINICAL [...] Provider Result Pauline Hoffmann MD MR ORDERABLES documented in this encounter Visit Diagnoses Diagnosis Transverse myelitis (HCC) Other causes of myelitis documented in this encounter Administered Medications Inactive Administered Medications - up to 3 most recent administrations Medication Order MAR Action Action Date Dose Rate Site gadobutrol (Gadavist) injection Intravenous, CONTRAST ONCE, Starting on 01/17/24 at 1517, Until 01/18/24 at 0120 $ Given - Contrast 01/17/2024 5:31 PM SHAKER OPERATOR 8 mL documented in this encounter Care Teams Section Hand Helper Relationship Specialty Start Date End Date Catia Atkins MD [address] [place] [phone] PCP - General 06/28/19 documented as of this encounter
--- OUTSIDE RECORDS SUMMARY | 2024-12-04 20:30 | XMS_ITS | Encounter Summary ---
Author Organization [facility] Address [facility] [facility] [place] [address] Care Team Providers Care Brush Filler Hand Name Role Phone Catia Atkins MD Primary Care Provider [phone] Reason for Visit * Reason Onset Date Comments Appointment 06/18/2024 Encounter Details Date Type Department Care Team (Late st Contact Info) Description 06/18/2024 Telephone [facility] - Orthopedics [address] [place] [phone] Lupe Qiu, RN Appointment Social History Tobacco Use Types Packs/Day [...] encounter Miscellaneous Notes * Telephone Encounter - Lupe Qiu RN - 06/18/2024 1:42 PM CDT Spoke with spouse Sharri and patient feels he needs to seen a family centered specialist and not just a neuro that was suggest back in April. I scheduled him a new patient appt in June documented in this encounter Plan of Treatment Not on file documented as of this encounter Visit Diagnoses Not on filedocumented in this encounter Care Teams Brush Filler Hand Relationship Specialty Start Date End Date Catia Atkins MD [address] [place] [address] [address] [place] [address] PCP - General 06/28/19 documented as of this encounter
--- OUTSIDE RECORDS SUMMARY | 2024-12-04 20:30 | XMS_ITS | Encounter Summary ---
Author Organization [facility] Health Address [address] [place], [place] [address] [address] Care Team Providers Care Bulb Assembler Name Role Phone Catia Atkins MD Primary Care Provider [phone] Reason for Visit * Reason Comments Establish Care Low Back Pain Encounter Details Date Type Department Care Team (Late st Contact Info) Description 06/28/2019 10:00 AM CDT Office Visit [facility] Neurosurgery [address] [place] [address] Aden Atkinson MD [address] [place] [id number] Sacroiliitis (HCC) (Primary Dx) Social History Tobacco Use Types Packs/Day Years Used Date Smoking Tobacco: Every Day Cigarettes Smokeless Tobacco: Never Tobacco Cessation:Ready to Q uit: No; Counseling Given: No Alcohol Use Standard Drinks/Week Comments Yes 0 (1 standard drink = 0.6 oz pur e alcohol) very seldom Sex and Gender Information Value Date Recorded Sex Assigned at Not on file Gender Identity Not on file Sexual Orientation Not on file documented as of this encounter Last Filed Vital Signs Vital Sign Reading Time Taken Comments Blood Pressure 122/71 06/28/2019 10:08 AM CDT Pulse 84 06/28/2019 10:08 AM CDT Temperature - - Respiratory Rate - - Oxygen Saturation - - Inhaled Oxygen Concentration - - Weight 79.4 kg (175 lb) 06/28/2019 10:08 AM CDT Height 177.8 cm (5' 10) 06/28/2019 10:08 AM CDT Body Mass Index 25.11 06/28/2019 10:08 AM CDT documented in this encounter Patient Instructions * Patient Instructions* Jaquelin Le APRN-CNP - 06/28/2019 10:14 AM CDT Recommend continue conservative treatment: - medications - physical therapy - pain management Follow up with physical therapy -script given today, you can take where ever you choose Follow up with pain management -Dr. Thom Harry: Call [phone] to make an appt -Bring your CD of images to appt with pain clinic -If you choose to go elsewhere contact your insurance and let us know where you are going No indication for surgical intervention at this time -discharge from clinic For any questions please call Cassie [phone] documented in this encounter Progress Notes * Aden Atkinson MD - 06/28/2019 5:59 PM CDT NAME: JUNIOR JUSTIN : 1960 AGE: 58 PROVIDER: Aden Atkinson MD SEX: M DATE: 06/28/2019 I had the pleasure of seeing Mr. Justin in the neurosurgery office today. HISTORY OF PRESENT ILLNESS: Mr. Justin is a very pleasant 58-year-old gentleman with history of pain in his right sacroiliac region radiating to the posterior portion of his right leg. He also reports some numbness on the top of his right foot; however, without clear pain radiating to the right L5 dermatome. He has already tried conservative treatment and physical therapy. He has not seen a pain management or tried injections yet. He denies bowel or bladder incontinence, muscle wasting or spasticity. REVIEW OF SYSTEMS: The patient reports arthritis/gout, joint pain, stiffness, restricted movement, constipation, kidney stones and emphysema. Past Medical History: Diagnosis Date ??? Alcohol abuse ??? Arthritic-like pain ??? Low back pain Past Surgical History: Procedure Laterality Date ??? Appendectomy ??? HX OF HAND SURGERY Family History Problem Relation Age of Onset ??? Arthritis - Osteo Mother Status: ??? None Known Father Status: Alive Social History Social History ??? Marital status: Single Spouse name: N/A ??? Number of children: N/A ??? Years of education: N/A Occupational History ??? Not on file. Social History Main Topics ??? Smoking status: Current Every Day Smoker Packs/day: 1.00 ??? Smokeless tobacco: Never Used ??? Alcohol use Yes Comment: very seldom ??? Drug use: No Comment: stopped ??? Sexual activity: Not on file Other Topics Concern ??? Not on file Social History Narrative Current Medications Cyclobenzaprine HCl (FLEXERIL PO) TRAMADOL HCL PO PHYSICAL EXAMINATION: The patient seems to be in mild discomfort, but in no acute distress. He has severe pain on palpation of the right SI joint with reproduction of his typical pain, negative on the left side. Straight leg raise test is negative bilaterally. He has full strength in the lower limbs for all tested muscles. Reflexes are physiologic and symmetric at 1+ in the lower limbs. He seems to have some minor hypoesthesia in the distribution of the right L5 dermatome. Strength, sensation and reflexes are normal in the upper limbs. REVIEW OF DIAGNOSTIC STUDIES: The patient had an MRI of the lumbar spine performed on 03/02/2019 which revealed degenerative disk disease worse at L3-L4 and L4-L5. At the level of L4-L5, there is moderate bilateral foraminal stenosis, worse on the right side. No major central canal stenosis. MEDICAL DECISION MAKING: I explained to the patient that he presents with a challenging condition with most of his pain apparently related to his right SI joint. I told him that although he may have some symptoms of numbness that could be related to the visualized foraminal stenosis, he has no clear signs of radiculopathy on his physical examination. Therefore, I encouraged him to continue conservative treatment. I referred him to hiv/aids care nurse. I also referred him to pain management physician for evaluation of possible right SI joint injections. In the absence of refractory radiculopathy, there is no indication of any neurosurgical intervention for him. He agrees with the proposed therapeutic plan. Thanks for allowing us to participate in the care for the patient. [id number] Doc ID: [id number] Voice Job ID: [id number] cc: Primary Care Physician documented in this encounter Plan of Treatment Not on file documented as of this encounter Visit Diagnoses Diagnosis Sacroiliitis (HCC)- Primary Sacroiliitis, not elsewhere classified documented in this encounter Care Teams Bulb Assembler Relationship Specialty Start Date End Date Catia Atkins MD [address] [place] [address] PCP - General 06/28/19 documented as of this encounter
--- OUTSIDE RECORDS SUMMARY | 2024-12-04 20:30 | XMS_ITS | Encounter Summary ---
Author Organization [facility] Address [address] [place] [address] Care Team Providers Care Tax Senior Associate Name Role Phone Catia Atkins MD Primary Care Provider [phone] Encounter Details Date Type Department Care Team (Late st Contact Info) Description 07/05/2024 Orders Only [facility] - Orthopedics [address] [place] [address], [place] [address] Regino Waite MD [address] [place] [address] OF ORTHOPEDIC SURGERY [place], [place] [id number] Lumbar pain Social History Tobacco Use Types Packs/Day Years [...] as of this encounter Results * XR Lumbar Spine [...] dictated by Bobby Abarca MD (vice president biostatistics). I, Marquez White MD have personally reviewed and interpreted this examination/study. > Interpreting Provider: Marquez White MD on 07/15/2024 3:47 PM Narrative 07/15/2024 3:47 PM CDT PROCEDURE: ??XR LUMBAR SPINE 4VW OR MORE, DATE/TIME OF EXAM: ??07/15/2024 12:45 PM, LOCATION ??[facility] INDICATION: M54.50: Lumbar pain ADDITIONAL CLINICAL INFORMATION: [...] DATE/TIME OF EXAM: 07/15/2024 12:45 PM, LOCATION [facility] INDICATION: M54.50: Lumbar pain ADDITIONAL CLINICAL INFORMATION: [...] dictated by Bobby Abarca MD (vice president biostatistics). I, Marquez White MD have personally reviewed and interpreted this examination/study. > Interpreting Provider: Marquez White MD on 07/15/2024 3:47 PM Regino Waite MD DIAGNOSTIC IMAGING O [facility]LES documented in this encounter Visit Diagnoses Diagnosis Lumbar pain- Primary Lumbago Lumbar pain Lumbago documented in this encounter Care Teams Tax Senior Associate Relationship Specialty Start Date End Date Catia Atkins MD [address] [place] [address] [address] [place] [address] PCP - General 06/28/19 documented as of this encounter
--- OUTSIDE RECORDS SUMMARY | 2024-12-04 20:30 | XMS_ITS | Encounter Summary ---
Author Organization [facility] Health Address [address] [facility] [place] [address] Care Team Providers Care Construction Project Administrator Name Role Phone Titi Kitchen MD Primary Care Provider [phone] Reason for Visit * Reason Onset Date Comments Future Appointment 06/01/2019 Encounter Details Date Type Department Care Team (Late st Contact Info) Description 06/01/2019 Telephone [facility] Neurosurgery [address] [place] [address] Rona Paula Future Appointment Social History Tobacco Use Types Packs/Day [...] encounter Miscellaneous Notes * Telephone Encounter - Rona Paula - 06/01/2019 10:29 AM CDT Left voice message for patient to call office to schedule new patient appointment with Dr. Atkinson. documented in this encounter Plan of Treatment Not on file documented as of this encounter Visit Diagnoses Not on filedocumented in this encounter Care Teams Construction Project Administrator Relationship Specialty Start Date End Date Titi Kitchen MD [facility] [address] Andrzej DEL ANGEL [address] [place] [address] PCP - General 12/30/17 06/27/19 documented as of this encounter
--- OUTSIDE RECORDS SUMMARY | 2024-12-04 20:30 | XMS_ITS | Continuity of Care Document ---
Author Organization [facility] Address [address] [facility] [address] [place] [address] Phone Care Team Providers Care Coater Operator Insulation Board Name Role Phone GÓMEZ Estes MBA, Brian Unavailable Unav ailable Procedures Procedure Date THERAPEUTIC EXERCISES NEUROMUSCULAR RE-ED MANUAL THERAPY HOT/COLD PACK ELECTRIC STIMULATION UNATT THERAPEUTIC EXERCISES NEUROMUSCULAR RE-ED MANUAL THERAPY HOT/COLD PACK ELECTRIC STIMULATION UNATT PT EVALUATION THERAPEUTIC EXERCISES MANUAL THERAPY HOT/COLD PACK ELECTRIC STIMULATION UNATT Advance Directives Directive Yes / No Effective Date File Name No Information Encounters Encounter Description Practice Location Reason(s) For Visit Diagnoses Date Provider Providers Copied on Encounter [facility] [facility] [place], [place], [id number], tel:[phone] [facility] No Information 5 Ileana Aranda. [address] [place] [address], [facility] [address], [place], [facility], [place]. tel: [phone] [facility] [address], [place], [place], [id number], tel:[phone] [facility] No Information 5 Dinesh Tomas. [address] [facility], [facility] [address] [address], [place]. tel: [phone] [facility], [place], [place], [address], [phone] [facility] Sciatica 5 Dinesh Tomas. [address] [facility], [address] tel: [phone] [facility], [place], [place], [id number], tel:[phone] [facility] Lumbago 5 Dinesh Tomas. [address] [facility], [facility] [address], [place], [facility], . tel: [phone] Family History Family Member Type Diagnosis Age At Onset No Information Payers Payer name Insurance type Covered alliance party ID Sonya coronado(s) Natalie [id number] Social History Type Description Quantity Date Captured Comments Sex Male Smoking Status No Information Chief Complaint And Reason For Visit No Information Reason For Referral Reason For Referral No Information History Of Present Illness Encounter Date Complaint History Of Prese nt Illness No Information Functional Status Date Functional Assessmen t No Information Instructions Date Instruction Additional Infor mation No Information Assessments Type Assessment Date No Information Patient Care Teams Name Effective Dates (start - stop) Status Members No Information
--- OUTSIDE RECORDS SUMMARY | 2024-12-04 20:30 | XMS_ITS | Encounter Summary ---
Author Organization [facility] Address [address] [facility] [place] [address] Care Team Providers Care Verification Lead Name Role Phone Catia Atkins MD Primary Care Provider [phone] Reason for Visit * Reason Onset Date Comments General 02/25/2024 Encounter Details Date Type Department Care Team (Late st Contact Info) Description 02/25/2024 Telephone [facility] - Neurology [address] [facility] [place] [address] Genie Hoffmann MD [address] [place] [address] General Social History Tobacco Use Types Packs/Day Years [...] encounter Miscellaneous Notes * Telephone Encounter - Griselda Parker RN - 02/26/2024 8:14 AM CDT Returned call to patient and spouse. And infromed them of the below information. His diagnosis continues to be clinically isolated [...] me know how patient would like to proceed. Scheduled patient an appointment to come in and discuss treatment options with Dr. Austin on 03/10/24at 4pm. * Telephone Encounter - Griselda Parker RN - 02/25/2024 12:50 PM CDT Patient called asking for the results of his MRI's states he had them completed in [facility]. Will route to Dr. Austin to review MRI's and will call patient back with update. documented in this encounter Plan of Treatment Not on file documented as of this encounter Visit Diagnoses Not on filedocumented in this encounter Care Teams Verification Lead Relationship Specialty Start Date End Date Catia Atkins MD [address] [place] [address] PCP - General 06/28/19 documented as of this encounter
--- OUTSIDE RECORDS SUMMARY | 2024-12-04 20:30 | XMS_ITS | Encounter Summary ---
Author Organization [facility] Address [facility] [facility] [place] [address] Care Team Providers Care Winding Inspector Name Role Phone Catia Atkins MD Primary Care Provider [phone] Reason for Visit * Radiology Services (Routine) - Closed Specialty Diagnoses / Procedures Referred By Manju t Referred To Contact MRI Diagnoses Transverse myelitis (HCC) Procedures MRI CERVICAL SPINE WWO CONT Genie Hoffmann MD [facility] [place] [address] [facility] Mri [address] [place] [address] Referral ID Status Reason Start Date Expiration Date Visits Re quested Visits Authorized [id number] Closed 10/30/2023 10/29/2024 1 1 Encounter Details Date Type Department Care Team (Latest Contact Info) Description 01/17/2024 2:45 PM MULTI NEEDLE MACHINE OPERATOR - 01/17/2024 11:59 PM [facility] Hospital Encounter [facility] MRI [address] [place] [address] Genie Hoffmann MD [facility] [place] [address] Discharge Disposition: Home or Self [...] Name Priority Date/Time Associated Diagnosis Comments MRI CERVICAL SPINE WWO CONT Routine 01/17/2024 5:33 PM MULTI NEEDLE MACHINE OPERATOR Transverse myelitis (HCC) documented in this encounter Results * MRI CERVICAL SPINE WWO CONT (01/17/2024 5:33 PM MULTI NEEDLE MACHINE OPERATOR) Anatomical Region Laterality Modality Spine Magnetic Resonan ce 01/17/2024 8:32 PM MULTI NEEDLE MACHINE OPERATOR Impressions 01/18/2024 8:10 PM MULTI NEEDLE MACHINE OPERATOR IMPRESSION: 1.Interval resolution of the previously [...] 01/18/2024 8:10 PM Narrative 01/18/2024 8:10 PM MULTI NEEDLE MACHINE OPERATOR PROCEDURE: ??MRI BRAIN WWO CONTRAST, MRI CERVICAL SPINE WWO CONT, MRI THORACIC SPINE WWO CONT, DATE/TIME OF EXAM: ??01/17/2024 5:33 PM, LOCATION [facility] INDICATION: G37.3: Transverse myelitis ([facility]-HCC) ADDITIONAL CLINICAL INFORMATION: Ordering Provider Reason [...] DATE/TIME OF EXAM: 01/17/2024 5:33 PM, LOCATION [facility] INDICATION: G37.3: Transverse myelitis (CMS-HCC) ADDITIONAL CLINICAL [...] myelitis documented in this encounter Care Teams Winding Inspector Relationship Specialty Start Date End Date Catia Atkins MD [address] [place] [address] PCP - General 06/28/19 documented as of this encounter
--- OUTSIDE RECORDS SUMMARY | 2024-12-04 20:30 | XMS_ITS | Encounter Summary ---
Author Organization [facility] Health Address [address] [facility] [place] [address] Care Team Providers Care Disk Sander Name Role Phone Catia Atkins MD Primary Care Provider [phone] Encounter Details Date Type Department Care Team (Latest Contact Info) Description 03/27/2023 10:27 AM CDT - 03/27/2023 11:59 PM CDT Hospital Encounter [facility] LAB OP DRAW STATION [address] [place] [phone] Discharge Disposition: Home or Self Care Social [...] daily 07/15/2024 documented as of this encounter Plan of Treatment Not on file documented as of this encounter Procedures Procedure Name Priority Date/Time Associated Diagnosis Comments RESTAURANT HOSTESS DEMYELINATING DISEASE EVAL BLOOD Routine 03/27/2023 10:53 AM CDT Acute transverse myelitis (HCC) ENCEPHALOPATHY AUTOIMMUNE EVAL BLOOD Routine 03/27/2023 10:53 AM CDT Acute transverse myelitis (HCC) SS-A (SJOGREN'S) 52+60 ANTIBODIES Routine 03/27/2023 10:53 AM CDT Acute transverse myelitis (HCC) Transverse myelitis (HCC) CORNEJO/LATEX SPOOLER (ARNAUD) ANTIBODY IGG Routine 03/27/2023 10:53 AM CDT Transverse myelitis (HCC) DNA ANTIBODY DS CRITHIDIA TITER Routine 03/27/2023 10:53 AM CDT Acute transverse myelitis (HCC) Transverse myelitis (HCC) TSH REFLEX FREE T4 Routine 03/27/2023 10 :53 AM CDT Acute transverse myelitis (HCC) Transverse myelitis (HCC) HTLV-I/II ANTIBODY W REFLEX CONFIRM Routine 03/27/2023 10:53 AM CDT Transverse myelitis (HCC) JUANY BLOOD SCREEN W/REFLEX TITER Routine 03/27/2023 10:53 AM CDT Acute transverse myelitis (HCC) Transverse myelitis (HCC) METHYLMALONIC ACID BLOOD Routine 03/27/2023 10:53 AM CDT Transverse myelitis (HCC) SS-B (SJOGREN'S) ANTIBODY Routine 03/27/2023 10:53 AM CDT Transverse myelitis (HCC) MPO/ME 3 AUTOANTIBODIES PANEL Routine 03/27/2023 10:53 AM CDT Transverse myelitis (HCC) VITAMIN B12 Routine 03/27/2023 10:53 AM CDT Transverse myelitis (HCC) documented in this encounter Results * NMO/AQP4+MGO W INTERP+RFLX TITER (MONTROSE) (03/27/2023 10:53 AM CDT) [facility] See Scanned Document 04/04/2023 9:30 AM CDT [facility] REF LAB NON INTERF RESTAURANT HOSTESS Demyelinating Eval See Scanned Report 04/04/2023 9:30 AM CDT [facility] REF LAB NON INTERF Blood BLOOD SPECIMEN / Unknown Lab Venipuncture / Unknown 03/27/2023 10:53 AM CDT 03/27/2023 12:06 PM CDT Yuri Pham MD LAB - CHEMISTRY ORDERABLES Performing Organization Address [facility] Co de Phone Number [facility] REF LAB NON INTERF [address] [place] [address], [facility] [phone] * ENCEPHALOPATHY AUTOIMMUNE EVAL BLOOD (MONTROSE) (03/27/2023 10:53 AM CDT) [facility] Encephalopathy Autoimmune Eval Blood See Scanned Report 04/03/2023 12:08 PM CDT [facility] REF LAB NON INTERF Blood BLOOD SPECIMEN / Unknown Lab Venipuncture / Unknown 03/27/2023 10:53 AM CDT 03/27/2023 12:06 PM CDT Yuri Pham MD LAB - CHEMISTRY ORDERABLES Performing Organization Address [facility] Co de Phone Number [facility] REF LAB NON INTERF [address] [place] [address], [facility] [phone] * CORNEJO/LATEX SPOOLER (ARNAUD) ANTIBODY IGG (03/27/2023 10:53 AM CDT) [facility] Cornejo/LATEX SPOOLER (ARNAUD) Antibody IgG 3 0 - 19 Units 03/28/2023 6:58 PM CDT [facility] ([facility]) Comment: INTERPRETIVE INFORMATION: Cornejo/LATEX SPOOLER (ARNAUD) Antibody, IgG ??19 Units or Less ............. Negative ??20 to 39 Units ............... Weak Positive ??40 to 80 Units ............... Moderate Positive ??81 Units or greater .......... Strong Positive Cornejo/LATEX SPOOLER antibodies are frequently seen in patients with mixed connective tissue disease (MCTD) and are also associated with other systemic autoimmune rheumatic diseases (SARDs) such as systemic lupus erythematosus (SLE), systemic sclerosis, and myositis. Antibodies targeting the Cornejo/LATEX SPOOLER antigenic complex also recognize Cornejo antigens, therefore, the Cornejo antibody response must be considered when interpreting these results. Performed By: [facility] [address] [place] [address] Carton Waxing Machine Operator: Karthikeyan Lazcano MD, PhD Blood BLOOD SPECIMEN / Unknown Lab Venipuncture / Unknown 03/27/2023 10:53 AM CDT 03/27/2023 11:07 AM CDT Yuri Pham MD LAB - CHEMISTRY ORDERABLES [facility] [employer] (Former[employer]) [facility]) [address] [place] [address], [facility] * METHYLMALONIC ACID BLOOD (03/27/2023 10:53 AM CDT) [facility] Methylmalonic Acid 0.10 0.00 - 0.40 umol/L 03/30/2023 10:47 PM CDT [facility] ([facility]) Comment: INTERPRETIVE INFORMATION: MMA Serum/Plasma, ?Vitamin B12 Status This test was developed and its performance characteristics determined by [facility]. It has not been cleared or approved by the [place] Food and Drug Administration. This test was performed in a CLIA certified laboratory and is intended for clinical purposes. Performed By: [facility] [address] [place] [address] Carton Waxing Machine Operator: Karthikeyan Lazcano MD, PhD Blood BLOOD SPECIMEN / Unknown Lab Venipuncture / Unknown 03/27/2023 10:53 AM CDT 03/27/2023 11:07 AM CDT Yuri Pham MD LAB - CHEMISTRY ORDERABLES [facility]) [address] [place], [place] [address] * VITAMIN B12 (03/27/2023 10:53 AM CDT) Vitamin B12 513 213 - 816 pg/mL 03/27/2023 12:19 PM CDT [facility]ORATORY [facility] Blood BLOOD SPECIMEN / Unknown Lab Venipuncture / Unknown 03/27/2023 10:53 AM CDT 03/27/2023 11:23 AM CDT Yuri Pham MD LAB - CHEMISTRY ORDERABLES Performing Organization Address City/[facility]/ZIP Co de Phone Number [place] [phone], [facility] [phone] * MPO/ME 3 AUTOANTIBODIES PANEL (03/27/2023 10:53 AM CDT) Pathologist [facility] Serine Proteinase 3 IgG 0 0 - 19 AU/mL 03/29/2023 11:17 AM CDT [facility] ([facility]) Comment: INTERPRETIVE INFORMATION: Serine Proteinase 3, IgG ??19 AU/mL or Less ........ Negative ??20-25 AU/mL ............. Equivocal ??26 AU/mL or Greater ..... Positive Approximately 85% of patients with a C-ANCA pattern by IFA have antibodies specific for PR3. Performed By: [facility] [address] [place] [address] Carton Waxing Machine Operator: Karthikeyan Lazcano MD, PhD Myeloperoxidase Antibody 0 0 - 19 AU/mL 03/29/2023 11:17 AM CDT [facility] ([facility]) Comment: INTERPRETIVE INFORMATION: Myeloperoxidase Abs, IgG ??19 [...] LAB - CHEMISTRY ORDERABLES Performing Organization Address [facility] de Phone Number [facility]) [address] [place] [address] * SS-B (SJOGREN'S) ANTIBODY (03/27/2023 10:53 AM CDT) [facility] SS-B Antibody 0 0 - 40 AU/mL 03/29/2023 11:29 AM CDT [facility] [employer] [facility] ([facility]) Comment: INTERPRETIVE INFORMATION: SSB (La) (ARNAUD) Ab, [...] (PSS) also have this antibody. Performed By: [facility] [address] [place] [address] Carton Waxing Machine Operator: Karthikeyan Lazcano MD, PhD Blood BLOOD SPECIMEN / Unknown Lab Venipuncture / Unknown 03/27/2023 10:53 AM CDT 03/27/2023 11:07 AM CDT Yuri Pham MD LAB - CHEMISTRY ORDERABLES Performing Organization Address [facility] de Phone Number [facility]) [address] [place] [address] * HTLV-I/II ANTIBODY W REFLEX CONFIRM (03/27/2023 10:53 AM CDT) HTLV-1/2 Antibody Negative Negative 03/28/2023 11:45 PM CDT [facility] [employer] [facility] ([facility]) Comment: Based on the non-reactive anti-HTLV CRISTAL screen, the HTLV Western Blot is not indicated and therefore not performed. INTERPRETIVE INFORMATION: ??HTLV I/II Antibodies w/Reflex ? to Confirm This assay should not be used for blood donor screening, associated re-entry protocols, or for screening Human Cell, Tissues and Cellular and Tissue-Based Products (HCT/P). Performed by [facility], [address] [place] [address] [email or web address], Karthikeyan Lazcano MD, PHD, Lab. Director Blood BLOOD SPECIMEN / Unknown Lab Venipuncture / Unknown 03/27/2023 10:53 AM CDT 03/27/2023 11:08 AM CDT Yuri Pham MD LAB - SEROLOGY ORDERABLES [facility]) [address] [place] [address], [facility] * DNA ANTIBODY DS CRITHIDIA TITER (03/27/2023 10:53 AM CDT) dsDNA Antibody IgG <1:10 <1:10 2022 10:58 PM CDT [facility] ([facility]) Comment: INTERPRETIVE INFORMATION: Double-Stranded DNA (dsDNA) Antibody, [...] recommendations for testing may be found at [email or web address]. Performed By: [facility] [address] [place] [address] Carton Waxing Machine Operator: Karthikeyan Lazcano MD, PhD Blood BLOOD SPECIMEN / Unknown Lab Venipuncture / Unknown 03/27/2023 10:53 AM CDT 03/27/2023 11:08 AM CDT Yuri Pham MD LAB - SEROLOGY ORDERABLES [facility]) [address] [place] [address], [facility] * JUANY BLOOD SCREEN W/REFLEX TITER (03/27/2023 10:53 AM CDT) JUANY IgG None Detected None Detected 03/28/2023 9:01 PM CDT [facility] ([facility]) Comment: If suspicion of connective tissue disease is strong and JUANY EIA is negative, consider testing for JUANY by IFA ([id number]). INTERPRETIVE INFORMATION: Anti-Nuclear Antibodies (JUANY), IgG by CRISTAL Antinuclear Antibodies (JUANY), IgG by CRISTAL: JUANY specimens are screened using enzyme-linked immunosorbent assay (CRISTAL) methodology. All CRISTAL results reported as Detected are further tested by indirect fluorescent assay (IFA) using HEp-2 substrate with an IgG-specific conjugate. The JUANY CRISTAL screen is designed to detect antibodies against dsDNA, histones, SS-A (Ro), SS-B (La), Cornejo, Cornejo/LATEX SPOOLER, Scl-70, Lucía-1, centromeric proteins, other antigens extracted from the HEp-2 cell nucleus. JUANY CRISTAL assays have been reported to have lower sensitivities than JUANY IFA for systemic autoimmune rheumatic diseases (SARD). Negative results do not necessarily rule out SARD. Performed By: [facility] [address] [place] [address] Carton Waxing Machine Operator: Karthikeyan Lazcano MD, PhD Blood BLOOD SPECIMEN / Unknown Lab Venipuncture / Unknown 03/27/2023 10:53 AM CDT 03/27/2023 11:07 AM CDT Yuri Pham MD LAB - CHEMISTRY ORDERABLES [facility] [employer] ([facility]) [facility]) [address] [place] [address], [facility] * SS-A (SJOGREN'S) 52+60 ANTIBODIES (03/27/2023 10:53 AM CDT) SS-A 52 Antibody 4 0 - 40 AU/mL 03/28/2023 10:11 PM CDT [facility] [employer] [facility] ([facility]) Comment: INTERPRETIVE INFORMATION: SSA-52 (Ro52) (ARNAUD) Antibody, [...] - 40 AU/mL 03/28/2023 10:11 PM CDT [facility] ([facility]) Comment: REFERENCE INTERVAL: SSA-60 (Ro60) (ARNAUD) Antibody, IgG ??29 AU/mL or Less ............. Negative ??30 - 40 AU/mL ................ Equivocal ??41 AU/mL or Greater .......... Positive Performed By: [facility] [address] [place] [address] Carton Waxing Machine Operator: Karthikeyan Lazcano MD, PhD Blood BLOOD SPECIMEN / Unknown Lab Venipuncture / Unknown 03/27/2023 10:53 AM CDT 03/27/2023 11:07 AM CDT Yuri Pham MD LAB - CHEMISTRY ORDERABLES [facility] ([facility]) [address] * TSH REFLEX FREE T4 (03/27/2023 10:53 AM CDT) TSH 2.544 0.350 - 4.940 uIU/mL 03/27/2023 12:11 PM CDT [facility] Blood BLOOD SPECIMEN / Unknown Lab Venipuncture / Unknown 03/27/2023 10:53 AM CDT 03/27/2023 11:19 AM CDT Yuri Pham MD LAB - CHEMISTRY ORDERABLES [facility] [address] [place] [phone], [facility] [phone] documented in this encounter Visit Diagnoses Diagnosis Acute transverse myelitis (HCC)- Primary Acute (transverse) myelitis NOS Transverse myelitis (HCC) Other causes of myelitis documented in this encounter Care Teams Disk Sander Relationship Specialty Start Date End Date Catia Atkins MD [facility] [place] [id number] PCP - General 06/28/19 documented as of this encounter
--- OUTSIDE RECORDS SUMMARY | 2024-12-04 20:30 | XMS_ITS | Encounter Summary ---
Author Organization [facility] Address [facility] [address] Care Team Providers Care Bus Attendant Name Role Phone Catia Atkins MD Primary Care Provider [phone] Reason for Visit * Reason Comments Low Back Pain Eval Encounter Details Date Type Department Care Team (Late st Contact Info) Description 07/15/2024 12:15 PM CDT Office Visit [facility] - Orthopedics [address] [place] [address], [place] [address] Regino Waite MD [address] [place] [address] OF ORTHOPEDIC SURGERY [place], [place] [id number] Lumbar pain (Primary Dx); Thoracic spine pain Social History Tobacco Use Types Packs/Day [...] as of this encounter Progress Notes * Mani Elizondo MD - 07/15/2024 12:48 PM CDT [facility] Orthopedic Spine Surgery Clinic Note Binu Justin, 63 year old, male : 1960 CSN: [id number] Primary Care Physician: Catia Atkins MD Diagnosis/Procedures 1.) Hx of transverse myelitis HPI Date of this clinic visit: 07/15/2024 This is a 63 year old male with history of diagnosis above who is here for a new patient clinic appointment. The patient is concerned with spasms that have continued to occur since his neurologist cleared him for further treatment of transverse myelitis. He reports improvement in strength and return of function of his extremities over the past two years, yet he continues to have muscle spasms. The spasms are described at starting at his thoracic region and traveling down to his toes. There is nothing that predicts when they will occur. He is interested in an explanation for the pathology behind these spasms. He uses a wheelchair for ambulation. He reports balance is still an issue for him, but has seen major improvement in the past year. Denies new numbness/paresthesias or bowel/bladder retention or incontinence. ROS otherwise negative. Objective There were no vitals taken for this visit. PMHx Past Medical History: Diagnosis Date Alcohol abuse Arthritic-like pain Low back pain PSHx Past Surgical History: Procedure Laterality Date Appendectomy HX OF HAND SURGERY Social Hx Social History Tobacco Use Smoking status: Former Packs/day: 1 Types: Cigarettes Smokeless tobacco: Former Substance Use Topics Alcohol use: Yes Comment: very seldom Family Hx family history includes Arthritis - Osteo in his mother; None Known in his father. Allergies No Known Allergies Medications Current Outpatient Medications Medication acetaminophen (Tylenol) 325 MG tablet Albuterol Sulfate 108 (90 Base) MCG/ACT baclofen (Lioresal) 10 MG tablet bisacodyl (Dulcolax) 10 MG suppository calcium carbonate (Calci-Chew) 1250 (500 Ca) MG chew tablet Eliquis 2.5 MG tablet Fluticasone Furoate 50 MCG/ACT AEPB ibuprofen (Motrin) 800 MG tablet loratadine (Claritin) 10 MG tablet magnesium 30 MG tablet Melatonin 3 MG ondansetron (Zofran) 4 MG tablet pantoprazole EC (Protonix) 40 MG tablet polyethylene glycol 3350 (Miralax) 17 g packet terbinafine (LamISIL) 250 MG tablet No current facility-administered medications for this visit. Review of Systems - Bowel/Bladder incontinence or retention: Denies - Numbness/paresthesias to extremities: Present - Hand clumsiness/loss of fine motor skills: Denies - Balance problems: Present Review of all other systems was negative. Physical Exam General appearance: awake, cooperative, NAD Bilateral Upper Extremity: - Motor: Shoulder Abduction (C5) 5/5 Elbow Extension (C7) 5/5 Elbow Flexion (C5-palm up; C6 - thumb up) 5/5 Wrist Extension (C6) 5/5 Wrist Flexion (C7) 5/5 Finger Flexion (C8) 5/5 Finger Abduction (T1) 5/5 - Sensory: Intact to light touch distally - Phoenix's sign is negative - Reflexes: Biceps: Normal Triceps: Normal BR: Normal Bilateral Lower Extremity: - Motor: Hip Flexion (L2/3) 5/5 Knee Flexion 5/5 Knee Extension (L4) 5/5 Ankle Dorsiflexion (L5) 5/5 Great Toe Extension (L5) 5/5 Ankle Plantarflexion (S1) 5/5 - Sensation: Intact to light touch distally - Straight Leg Raise: negative bilaterally - Clonus: not assessed - Reflexes: Knee Jerk: Normal Achilles: Normal Babinski: Deferred Imaging - MRI Cervical, thoracic and lumbar reviewed. Demonstrate no area of spinal cord compression at anylevel. Assessment/Plan: Binu Justin is a 63 year old male s/p treatment for transverse myelitis. Given benign imaging the patient's continued spasms are more likely a neurologic related concern as opposed to a spinalpathology. There is no intervention from a spine perspective that would benefit this patient. The patient was advised to continue following with neurology. - Patient was counseled to the nature of their diagnosis and demonstrated understanding - Lifting/Activity restrictions: none - Follow up DEB Elizondo MD 07/15/2024 07/15/2024 Patient-entered Ortho Intake Form Referring provider revisit Reason for visit Low Back/lumbar spine What are your symptoms? Numbness/tingling Stiffness How did this pain/injury begin? transverse myelitis When did your pain/injury start? jul 2022 Does any other area/part of your body hurt? no Active Worker's Comp claim? No Pain level at rest 1 Pain level with activity 3 What makes your pain worse? spasms Treatments tried Rest/activity modification Over the counter pain medication Physical Therapy Home Exercises Program Currently employed? No Smoking status Previous Smoker Alcohol intake? No Taking opioid/narcotic? No 07/15/2024 Patient-Reported Satisfaction Current state satisfactory? No Prior treatment? Yes - non-surgical treatment Function since treatment Improved Currently taking narcotics? No 07/15/2024 PROMIS Pain Interference PROMIS PI Score 56 (mild) 07/15/2024 PROMIS Physical Function PROMIS PF Score 35 (moderate dysfunction) 07/15/2024 Depression Screening PHQ-2 Score Incomplete Patient Health Questionnaire-2 Score 2 Associated attestation - Regino Waite MD - 07/15/2024 4:14 PM CDT I personally saw, evaluated, examined and participated in the management of this patient during their clinic visit. I have reviewed all radiographic studies. I reviewed the resident's clinic note, made appropriate edits and additions and agree with the remainder of their findings. Please see their note for further details. I confirm the lobo elements of the history. I have discussed the results ofthe physical exam and all studies with the patient. I personally developed the noted assessment anddiscussed it with the patient. I confirm the lobo elements of the plan of care. 07/15/2024 Patient-entered Ortho Intake Form Referring provider revisit Reason for visit Low Back/lumbar spine What are your symptoms? Numbness/tingling Stiffness How did this pain/injury begin? transverse myelitis When did your pain/injury start? jul 2022 Does any other area/part of your body hurt? no Active Worker's Comp claim? No Pain level at rest 1 Pain level with activity 3 What makes your pain worse? spasms Treatments tried Rest/activity modification Over the counter pain medication Physical Therapy Home Exercises Program Currently employed? No Smoking status Previous Smoker Alcohol intake? No Taking opioid/narcotic? No 07/15/2024 Patient-Reported Satisfaction Current state satisfactory? No Prior treatment? Yes - non-surgical treatment Function since treatment Improved Currently taking narcotics? No 07/15/2024 PROMIS Pain Interference PROMIS PI Score 56 (mild) 07/15/2024 PROMIS Physical Function PROMIS PF Score 35 (moderate dysfunction) 07/15/2024 Depression Screening PHQ-2 Score Incomplete Patient Health Questionnaire-2 Score 2 Please do not hesitate to contact me with questions regarding him or any other patient in the future. Our clinical specialist, can be reached at [phone]. Sincerely, Regino Waite MD * Cheikh Duke RN - 07/15/2024 12:01 PM CDT Here for L- Spine eval.- TS documented in this encounter Plan of Treatment Not on file documented as of this encounter Results * XR Thoracic Spine [...] study. Report dictated by Bobby Abarca MD (administration vice president). Marquez Graf MD have personally reviewed and interpreted this examination/study. > Interpreting Provider: Marquez White MD on 07/15/2024 3:54 PM Narrative 07/15/2024 3:54 PM CDT PROCEDURE: ??XR THORACIC SPINE 2VW, DATE/TIME OF EXAM: ??07/15/2024 12:45 PM, LOCATION ??[facility] INDICATION: M54.6: Thoracic spine pain ADDITIONAL CLINICAL [...] 2VW, DATE/TIME OF EXAM: 07/15/2024 12:45PM, LOCATION [facility] INDICATION: M54.6: Thoracic spine pain ADDITIONAL CLINICAL [...] study. Report dictated by Bobby Abarca MD (administration vice president). Marquez Graf MD have personally reviewed and interpreted this examination/study. > Interpreting Provider: Marquez White MD on 07/15/2024 3:54 PM Regino Waite MD DIAGNOSTIC IMAGING O RDER[facility]LES documented in this encounter Visit Diagnoses Diagnosis Lumbar pain- Primary Lumbago Thoracic spine pain Pain in thoracic spine Thoracic spine pain Pain in thoracic spine documented in this encounter Care Teams Bus Attendant Relationship Specialty Start Date End Date Catia Atkins MD [facility] [place] [phone] PCP - General 06/28/19 documented as of this encounter
--- OUTSIDE RECORDS SUMMARY | 2024-12-04 20:30 | XMS_ITS | Encounter Summary ---
Author Organization [facility] Address [facility] [facility] [place] [address] Care Team Providers Care Athletic Monitor Name Role Phone Catia Atkins MD Primary Care Provider [phone] Encounter Details Date Type Department Care Team (Latest Contact Info) Description 06/18/2024 Travel Social History Tobacco Use Types Packs/Day [...] on filedocumented in this encounter Care Teams Athletic Monitor Relationship Specialty Start Date End Date Catia Atkins MD [facility] [place] [phone] PCP - General 06/28/19 documented as of this encounter
--- NOTE | 2024-12-06 13:02 | PC.NURSE ---
Blood cx are negative. Dr. Solo brumfield.
== END 2024-11-30 18:30 | disposition home or self-care (01) | DRG 194 ==
LOC: ANHED 21:52 → ANH3MEDSUR 11-28 06:30
PROVIDERS: Admitting Provider Internal Medicine; Emergency Provider Physician Assistant; PCP Family Medicine; Visit Provider Internal Medicine
DX: J18.9 Pneumonia, unspecified organism (principal); G37.3 Acute transverse myelitis in demyelinating disease of central nervous system; U09.9 Post COVID-19 condition, unspecified; K52.9 Noninfective gastroenteritis and colitis, unspecified; E87.6 Hypokalemia; K21.9 Gastro-esophageal reflux disease without esophagitis; Z20.822 Contact with and (suspected) exposure to COVID-19; Z87.891 Personal history of nicotine dependence; Z90.49 Acquired absence of other specified parts of digestive tract
CPT/HCPCS: 36415; 71260; 74177; 80048; 80053; 80069; 81001; 83690; 83735; 85025; 87040; 87070; 87205; 87637; 93005; 94640; 96361; 96365; 96366; 96367; 96372; 96375; 97165; 97530; 97535; 99285; A9270; G0378; J0456; J0500; J0696; J2270; J2405; J3480; J7030; J7040; J7512; Q9967

== ENCOUNTER → 2025-04-06 11:34 | Outpatient (REF) | payer MEDICARE, MEDICAID, SELFPAY ==
--- OUTSIDE RECORDS SUMMARY | 2025-04-06 11:39 | XMS_ITS | Referral Summary ---
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 file Not on file Last Filed Vital Signs Vital Sign Reading Time Taken Comments Blood Pressure 110/78 11/11/2017 1:08 PM PATIENT SERVICES TECHNICIAN Pulse 64 11/11/2017 1:08 PM PATIENT SERVICES TECHNICIAN Temperature - - Respiratory Rate - - Oxygen Saturation - - Inhaled Oxygen Concentration - - Weight 79 kg (174 lb 3.2 oz) 11/11/2017 1:08 PM PATIENT SERVICES TECHNICIAN Height 176.5 cm (5' 9.5 ) 11/11/2017 1:08 PM PATIENT SERVICES TECHNICIAN Body Mass Index 25.36 11/11/2017 1:08 PM PATIENT SERVICES TECHNICIAN Plan of Treatment Not on file Procedures Procedure Name Priority Date/Time Associated Diagnosis Comments PSA SCREEN Routine 11/11/2017 2:13 PM PATIENT SERVICES TECHNICIAN Screening PSA (prostate specific antigen) COLONOSCOPY REPORT 04/12/2015 from Last 3 Months or Most Recently Relevant to Health Maintenance Results * PSA screen (11/11/2017 2:13 PM PATIENT SERVICES TECHNICIAN) PSA-Total 1.0 0.1 - 4.0 ng/mL [facility] Blood specimen (specimen) 11/11/2017 2:13 PM PATIENT SERVICES TECHNICIAN 11/11/2017 9:05 PM PATIENT SERVICES TECHNICIAN Narrative [facility] - 11/11/2017 10:06 PM PATIENT SERVICES TECHNICIAN Titi Kitchen MD LAB BLOOD ORDERABLES Final Re sult [facility] [place] [address] * COLONOSCOPY REPORT (04/12/2015) Anatomical Region Laterality Modality Other Narrative 04/12/2015 Ordered by an unspecified provider. Historical Provider GI PROCEDURE ORDERABLES F inal Result from Last 3 Months or Most Recently Relevant to Health Maintenance Insurance [facility] MEDICARE [facility] Care Teams Databases Software Consultant Relationship Specialty Start Date End Date Titi Kitchen MD [facility] [address] [address] PCP - General Internal Medicine 11/27/17
--- OUTSIDE RECORDS SUMMARY | 2025-04-06 11:39 | XMS_ITS | Clinical Summary ---
Author Organization [facility] Address [address] [place] [address] Care Team Providers Care Microfilm Machine Operator Name Role Phone Catia Atkins MD Primary Care Provider [phone] Source Comments [facility],non-owned Affiliates and Associated Physician Practices is amultiple site organization consisting of ambulatory clinics and hospital sitesin [place], [place], [place] and [place]. This disclosure is being madepursuant to the Care Everywhere program and may not contain all information available regarding this patient. Last updated 18.[facility] Allergies No known active allergies Medications * Be aware that medications may not be up to date on this document. Alwaysverify current medications with the patient. acetaminophen (Tylenol) 325 MG tablet Take 1 [...] (two) tablets by mouth 2 times daily 3 Active baclofen (Lioresal) 10 MG tabletIndicati ons:Transverse myelitis (HCC) Take 1 (one) tablet by mouth at bedtime May cause drowsiness. 90 tablet 3 3 Active Additional Information Patient taking differently:10 mg OralAT BEDTIME PRN, Muscle Spasms, May cause drowsiness., Reported on 07/15/2024 vitamin D, cholecalcifero l, 50 MCG (1999 UT) tablet Take 2 (two) tablets by mouth once daily Active vitamin b-12 (Cyancobalamin ) 1000 MCG tablet cr Take by mouth once daily Patient did not know or indicate the dosage- TS Active magnesium 250 MG tablet Take 1 (one) tablet by mouth once daily Active Active Problems Problem Noted Date Diagnosed Date Low back pain 07/05/2024 Spasm 09/30/2023 Acute viral transverse myelitis 07/01/2023 Onychomycosis of toenail 04/08/2023 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 Acute transverse myelitis 09/27/2022 Transverse [...] at Not on file Legal Sex Male 5:50 PM ICE DELIVERY DRIVER Gender Identity Not on file Sexual Orientation Not on file Last Filed Vital Signs Vital Sign Reading Time Taken Comments Blood Pressure 124/81 08/23/2024 9:36 AM CDT Pulse 75 08/23/2024 9:36 AM CDT Temperature 36.5 C (97.7 F) 08/23/2024 9:36 AM CDT Respiratory Rate 16 10/01/2022 4:10 AM ICE DELIVERY DRIVER Oxygen Saturation 94% 08/23/2024 9:36 AM CDT Inhaled Oxygen Concentration - - Weight 81.6 kg (180 lb) 08/23/2024 9:36 AM CDT Height 177.8 cm (5' 10 ) 08/23/2024 9:36 AM CDT Body Mass Index [...] 12/11/1979 DTAP/TDAP/TD VACCINES (1 - Tdap) 1980 PNEUMOCOCCAL VACCINE 50+ (1 of 1 - PCV) 2011 ZOSTER VACCINE (1 of 2) 2011 COVID-19 VACCINE (1 - 2023- season) 2024 DEPRESSION SCREENING 11/24/2024 07/15/2024 MEDICARE AWV CALENDAR YEAR 2024 INFLUENZA VACCINE (Season Ended) 2025 SCREENING FOR DIABETES 10/01/2025 , 09/30/2022, 09/29/2022, Additional history exists Respiratory Syncytial Virus (RSV) Vaccine Pt: or over 60 yrs (1 - 1-dose 75+ series) 2036 HEPATITIS B VACCINE Aged Out No longe r eligible based on patient's age to complete this topic HIB VACCINE Aged Out No longer eligi ble based on patient's age to complete this topic HPV VACCINE Aged Out No longer eligi ble based on patient's age to complete this topic MENINGOCOCCAL (Group B) VACCINE SHARED DECISION-MAKING Aged Out No longer eligible based on patient's age to complete this topic MENINGOCOCCAL GROUPS A/C/Y/W VACCINE Aged Out No longer eligible based on patient's age to complete this topic Procedures Procedure Name Priority Date/Time Associated Diagnosis Comments BASIC METABOLIC PANEL (CALCIUM TOTAL) Routine 10/01/2022 1:43 AM ICE DELIVERY DRIVER from Last 3 Months or Most Recently Relevant to Health Maintenance Results * (ABNORMAL) BASIC METABOLIC PANEL (CALCIUM TOTAL) (10/01/2022 1:43 AM ICE DELIVERY DRIVER) BUN 20 7 - 26 mg/dL 10/01/2022 2:20 AM [facility] Creatinine 0.71 0.71 - 1.16 mg/dL 10/01/2022 2:20 AM [facility] Sodium 137 136 - 145 mmol/L 10/01/2022 2:20 AM [facility] Potassium 3.8 3.5 - 4.5 mmol/L 10/01/2022 2:20 AM [facility] Chloride 106 98 - 107 mmol/L 10/01/2022 2:20 AM [facility] CO2 23 22 - 29 mmol/L 10/01/2022 2:20 AM [facility] Glucose 107 70 - 115 mg/dL 10/01/2022 2:20 AM [facility] Calcium 8.5 8.4 - 10.2 mg/dL 10/01/2022 2:20 AM [facility] Anion Gap 12 8 - 18 10/01/2022 2:20 AM [facility] BUN/Creatinine Ratio 28(H) 7 - 23 10/01/2022 2:20 AM [facility] Osmolality Calculated 287 270 - 300 mOsm/kg 10/01/2022 2:20 AM [facility] eGFR by CKD-EPI >90 >=90 mL/min/1.7 3 m2 10/01/2022 2:20 AM [facility] Blood BLOOD SPECIMEN / Unknown Lab Venipuncture / Unknown 10/01/2022 1:43 AM ICE DELIVERY DRIVER 10/01/2022 1:53 AM ICE DELIVERY DRIVER Ramon Gonzalez MD LAB - CHEMISTRY ORDERABLES Final Result [facility] [address] [place] [address], [facility] [phone] from Last 3 Months or Most Recently Relevant to Health Maintenance Insurance [facility] MANAGED MEDICARE ADV Advance Directives * Full Code (Latest Code Status on File) Date Activated Date Inactivated Comments 09/27/2022 11:59 PM 10/01/2022 5:22 PM Care Teams Microfilm Machine Operator Relationship Specialty Start Date End Date Catia Atkins MD [address] [place] [address] [address] [place] [id number] PCP - General 06/28/19
--- OUTSIDE RECORDS SUMMARY | 2025-04-06 11:39 | XMS_ITS | Clinical Summary ---
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 file Not on file Obstetrics History Last Filed Vital Signs Vital Sign Reading Time Taken Comments Blood Pressure 110/78 11/11/2017 1:08 PM WORKERS COMPENSATION CLAIMS ANALYST Pulse 64 11/11/2017 1:08 PM WORKERS COMPENSATION CLAIMS ANALYST Temperature - - Respiratory Rate - - Oxygen Saturation - - Inhaled Oxygen Concentration - - Weight 79 kg (174 lb 3.2 oz) 11/11/2017 1:08 PM WORKERS COMPENSATION CLAIMS ANALYST Height 176.5 cm (5' 9.5 ) 11/11/2017 1:08 PM WORKERS COMPENSATION CLAIMS ANALYST Body Mass Index 25.36 11/11/2017 1:08 PM WORKERS COMPENSATION CLAIMS ANALYST Plan of Treatment Health Maintenance Due Date Last Done Comments Hepatitis C Screening 1961 DTaP/Tdap/Td Vaccine (1 - Tdap) 1972 Hepatitis B Screening 1979 Regular Well Visit/Exam 18-64 1979 Pneumococcal vaccine <65 (1 of 2 - PCV) 1980 Zoster Vaccine (1 of 2) 2011 Depression Screening 11/11/2018 11/11/2017 Prostate Cancer Screening-PSA 11/11/2019 11/11/2017 Colon Cancer Screening-Colonoscopy 04/12/20252014 Colon Cancer Screening-CT Colonography Discontinued Colon Cancer Screening-DNA Stool Discontinued 04/12/20 Colon Cancer Screening-FIT Discontinued 04/12/2015 Colon Cancer Screening-Sigmoidoscopy Discontinued 03/25 Influenza Vaccine Discontinued Procedures Procedure Name Priority Date/Time Associated Diagnosis Comments PSA SCREEN Routine 11/11/2017 2:13 PM WORKERS COMPENSATION CLAIMS ANALYST Screening PSA (prostate specific antigen) COLONOSCOPY REPORT 04/12/2015 from Last 3 Months or Most Recently Relevant to Health Maintenance Results * PSA screen (11/11/2017 2:13 PM WORKERS COMPENSATION CLAIMS ANALYST) PSA-Total 1.0 0.1 - 4.0 ng/mL [facility] Blood specimen (specimen) 11/11/2017 2:13 PM WORKERS COMPENSATION CLAIMS ANALYST 11/11/2017 9:05 PM WORKERS COMPENSATION CLAIMS ANALYST Narrative [facility] - 11/11/2017 10:06 PM WORKERS COMPENSATION CLAIMS ANALYST Titi Kitchen MD LAB BLOOD ORDERABLES Final Re sult [facility] [place] [address] * COLONOSCOPY REPORT (04/12/2015) Anatomical Region Laterality Modality Other Narrative 04/12/2015 Ordered by an unspecified provider. Celeste Provider GI PROCEDURE ORDERABLES F inal Result from Last 3 Months or Most Recently Relevant to Health Maintenance Insurance [facility] MEDICARE [facility] Care Teams Protective Signal Operator Relationship Specialty Start Date End Date Titi Kitchen MD [address] [place] [address] [address] Andrzej DEL ANGEL [address] [place] [id number] PCP - General Internal Medicine 11/27/17
== END ==
LOC: ANHLAB 11:34
PROVIDERS: PCP Family Medicine; Visit Provider Plastic Surgery
DX: D48.5 Neoplasm of uncertain behavior of skin (principal)
CPT/HCPCS: 88305

== ENCOUNTER 2025-09-16 15:53 | Outpatient (CLI) | payer MEDICARE, MEDICAID, SELFPAY ==
--- NOTE | ~2025-09-16 | CT_ITS ---
EXAMINATION:CT lung screening DATE: 09/16/2025 16:09 INDICATION: Personal history of nicotine dependence. TECHNIQUE: Computed tomography (CT) of the chest was performed without intravenous contrast. Automated exposure control and iterative reconstruction technique were employed. The dose-length product (DLP) was 98.90 mGy-cm. COMPARISON: Chest CT 11/27/2024 FINDINGS: There is mild emphysema. There is a 2.0 x 1.3 cm part solid nodule in right lower lobe. There is a 3.2 x 2.5 cm mass in right lower lobe. There are 4 mm and 5 mm nodules in right lower lobe. There is a 2.5 x 1.6 cm right hilar lymph node, likely reactive. No pleural effusion. The heart size is normal. There are coronary artery calcifications. No pericardial effusion. There is bilateral gynecomastia. There is a 1.6 cm cyst in the liver. There is moderate thoracic spondylosis. IMPRESSION: 1. Lung-RADS category 0: Incomplete. Findings suggestive of right lower lobe pneumonia. Noncontrast low-dose chest CT is recommended in 1-3 months. Reviewed, dictated and finalized at location E. IMPRESSION: 1. Lung-RADS category 0: Incomplete. Findings suggestive of right lower lobe pn eumonia. Noncontrast low-dose chest CT is recommended in 1-3 months.
== END 2025-09-16 15:54 | disposition home or self-care (01) ==
LOC: MICIMG 15:55
PROVIDERS: PCP Family Medicine; Visit Provider Family Medicine
DX: Z12.2 Encounter for screening for malignant neoplasm of respiratory organs (principal); Z87.891 Personal history of nicotine dependence
CPT/HCPCS: 71271